=== PATIENT | male | born 1935 | race Caucasian/White ===

== ENCOUNTER 2016-11-18 08:19 | Inpatient (IN) | payer MEDICARE, MEDICAID ==
--- NOTE | 2016-11-18 08:27 | ED PDOC ---
Arrival/HPI - General Chief Complaint: Abdominal Pain Time Seen by Provider: 11/18/16 08:21 Historian: Patient - History of Present Illness Narrative History of Present Illness (Text): 11/18/16 08:26 A 81 year old male, whose past medical history includes CAD with stents and hypertension, presents to the emergency department complaining of worsening left lower abdominal discomfort for the past 2 weeks. He notes hematochezia but denies any fever, chills, chest pain, shortness of breath, dyspnea on exertion, constipation, symptoms, testicular pain, testicular swelling or any other complaints at this time. PMD: Dr. Camarillo Time/Duration: > week Symptom Onset: Gradual Symptom Course: Worsening Quality: Other Activities at Onset: Rest Context: Home Past Medical History - Provider Review Nursing Documentation Reviewed: Yes - Infectious Disease Hx of Infectious Diseases: None - Tetanus Immunization Tetanus Immunization: Unknown - Cardiac Hx Hypertension: Yes - Pulmonary Hx Respiratory Disorders: No - Neurological Hx Neurological Disorder: No - HEENT Hx HEENT Disorder: No Hx Cataracts: Yes (b/l sx) - Renal Hx Kidney Stones: No - Endocrine/Metabolic Hx Endocrine Disorders: No - Hematological/Oncological Hx Blood Transfusions: No - Integumentary Hx Dermatological Disorder: No - Musculoskeletal/Rheumatological Hx Falls: No - Gastrointestinal Hx Gastrointestinal Disorders: No - Genitourinary/Gynecological Hx Genitourinary Disorders: No - Psychiatric Hx Substance Use: No - Surgical History Hx Coronary Stent: Yes (x2) Hx Orthopedic Surgery: Yes (pt denies left hip sx) - Anesthesia Hx Anesthesia Reactions: No Hx Malignant Hyperthermia: No - Suicidal Assessment Feels Threatened In Home Enviroment: No Family/Social History - Physician Review Nursing Documentation Reviewed: Yes Family/Social History: Unknown Family HX Smoking Status: Never Smoked Hx Alcohol Use: No Hx Substance Use: No Hx Substance Use Treatment: No Allergies/Home Meds Allergies/Adverse Reactions: Allergies No Known Allergies Allergy (Verified 11/18/16 08:47) Home Medications: Home Meds Medication Instructions Recorded Confirmed Aspirin [Aspir 81] 81 mg PO DAILY 11/15/13 11/18/16 Vitamin B Complex & Vitamin C 1 tab PO DAILY 11/15/13 11/18/16 [Strovite] Simvastatin 40 mg PO DAILY 11/28/14 11/18/16 Vit [id number] 50,000 iu PO DAILY 11/28/14 11/18/16 Lisinopril [Zestril] 10 mg PO DAILY 12/18/15 11/18/16 Ranitidine HCl [Acid Pediatric Neuropsychologist] 150 mg PO DAILY 12/18/15 11/18/16 amLODIPine [Norvasc] 5 mg PO DAILY 12/18/15 11/18/16 Meloxicam 7.5 mg PO DAILY 11/18/16 11/18/16 Physical Exam - Physical Exam Narrative Physical Exam (Text): - Review of Systems Constitutional: Normal. absent: Fatigue, Weight Change, Fevers Eyes: Normal ENT: Normal Respiratory: Normal absent: SOB, Cough, Sputum Cardiovascular: Normal absent: Chest pain, Palpitations, Syncope Gastrointestinal: Left lower abdominal pain. Hematochezia. absent: Diarrhea, Nausea, Vomiting Genitourinary: Normal. absent: Dysuria, Frequency, Hematuria Musculoskeletal: Normal. absent: Arthralgias, Back Pain, Neck Pain Skin: Normal Neurological: Normal absent: Focal Weakness Endocrine: Normal Hemo/Lymphatic: Normal Psychiatric: Normal - Physical exam Patient appears age appropriate, speaking full sentences without difficulty - Systems Exam Head: Present: Atraumatic, Normocephalic Pupils: Present: PERRL Extraocular Muscles: Present: EOMI Conjunctiva: Present: Normal Mouth: Present: Moist Mucous Membranes Neck: Present: Normal Range of Motion. No: MIDLINE TENDERNESS, Paraspinal Tenderness Respiratory/Chest: Present: Clear to Auscultation, Good Air Exchange. No: Respiratory Distress, Accessory Muscle Use, Tachypneic Cardiovascular: Present: Regular Rate and Rhythm, Normal S1, S2, Peripheral Pulses Present. No: Murmurs Abdomen: Present: Normal Bowel Sounds. Non reducible left inguinal hernia with erythema and tenderness with palpation. No: Peritoneal Signs, Rebound, Guarding , Distention Rectal: Guaiac positive. Female market editor (Scribe - Dimpal Clayton) present. Back: Present: Normal Inspection. No: Midline Tenderness, Paraspinal Tenderness Upper Extremity: Present: Normal Inspection. No: Cyanosis, Edema Lower Extremity: Present: Normal Inspection. No: Edema Neurological: Present: GCS=15, Speech Normal, cranial nerves II through XII fully intact with no cerebellar abnormality, neuro-sensory fully intact. No focal neurological deficits. Skin: Present: Warm, Dry, Normal Color. No: Rashes Lymphatic: Present: OX3, NI, NC Psychiatric: Present: Alert, Oriented x 3, Normal Insight, Normal Concentration Vital Signs Reviewed: Yes Vital Signs Temp Pulse Resp BP Pulse Ox 11/18/16 12:18 89 19 133/76 96 11/18/16 10:20 78 20 129/87 99 11/18/16 08:37 98.1 F 98 H 20 164/83 H 99 Temperature: Afebrile Blood Pressure: Hypertensive Pulse: Regular Respiratory Rate: Normal Appearance: Positive for: Well-Appearing, Non-Toxic, Comfortable Pain Distress: None Mental Status: Positive for: Alert and Oriented X 3 Medical Decision Making ED Course and Treatment: 11/18/16 08:26 Impression: A 81 year old male with left lower abdominal pain. Physical examination reveals patient has a non reducible inguinal hernia and guaiac positive stool. Differential Diagnosis include but are not limited to: incarcerated hernia vs. strangulated hernia vs. GI bleed Plan: -- EKG -- Abdomen/Pelvis CT -- Chest X-ray -- Labs -- Urinalysis -- Morphine, Protonix and IV Fluids -- Reassess and disposition Prior Visits: Notes and results from previous visits were reviewed. The patient was last discharged from the hospital on 12/20/15 after being worked yp for hematochezia. Progress Notes: 11/18/16 10:16 Chest X-ray: Creator : LEIGHA THOMAS MD IMPRESSION: No active pulmonary disease. 11/18/16 11:00 Abdomen/Pelvis CT: Creator : Cordell Palumbo MD IMPRESSION: Anterior abdominal wall hernia in the left lower quadrant adjacent to the inguinal canal. This contains a segment of the colon but there is no obstruction 11/18/16 12:[address] Ramirez in detail, states to consult Dr. Meier for surgery froy Conde manager surgical, states will evaluate 11/18/16 12:25 pt aware of and agrees with plan states he currently has no pain - Lab Interpretations Lab Results: 11/18/16 08:40 11/18/16 08:40 Lab Results 11/18/16 09:30: Urine Color Yellow, Urine Appearance Clear, Urine pH 6.0, Ur Specific [place] 1.020, Urine Protein Trace H, Urine Glucose (UA) 500 H, Urine Ketones Negative, Urine Blood Trace-intact H, Urine Nitrate Negative, Urine Bilirubin Negative, Urine Urobilinogen 0.2, Ur Leukocyte Esterase Negative, Urine RBC 0 - 2, Urine WBC 0 - 2, Hyaline Casts 2 - 5 11/18/16 08:40: TIBC 283 11/18/16 08:40: Sodium 136, Potassium 4.2, Chloride 98, Carbon Dioxide 26, Anion Gap 16, BUN 26 H, Creatinine 1.1, Est GFR ( Amer) > 60, Est GFR ( Non-Af Amer) > 60, Random Glucose 204 H, Calcium 9.2, Ferritin Pending, Total Bilirubin 0.7, AST 36, ALT 28, Alkaline Phosphatase 57, Lactate Dehydrogenase 411, Total Creatine Kinase 181, Troponin I < 0.01, Total Protein 7.8, Albumin 4.2, Globulin 3.6, Albumin/Globulin Ratio 1.2 11/18/16 08:40: PT 11.2, INR 1.04, APTT 29.2 11/18/16 08:40: WBC 8.8, RBC 3.77, Hgb 12.1 L, Hct 34.7 L, MCV 92.0, MCH 32.1, MCHC 34.9, RDW 14.1, Plt Count 269, MPV 9.7, Gran % 73.9 H, Lymph % (Auto) 11.5 L, [place]cer % (Auto) 12.8 H, Eos % (Auto) 1.6, Baso % (Auto) 0.2, Gran # 6.47, Lymph # 1.0 L, Mercer # 1.1 H, Eos # 0.1, Baso # 0.02 11/18/16 08:40: Blood Type A POSITIVE, Antibody Screen Negative, BBK History Checked Patient has bt I have reviewed the lab results: Yes - RAD Interpretation Radiology Orders: 11/18/16 ABD & PELVIS W/O PO OR IV CONT [CT] Stat 11/18/16 08:41 CHEST ONE VIEW [RAD] Stat - Medication Orders Current Medication Orders: Sodium Chloride (Sodium Chloride 0.9%) 1,000 mls @ 75 mls/hr IV .[id number] Last Admin: 11/18/16 08:50 Dose: 75 mls/hr Discontinued Medications Morphine Sulfate (Morphine) 4 mg IVP STAT STA Stop: 11/18/16 08:42 Last Admin: 11/18/16 08:56 Dose: 4 mg Pantoprazole Sodium (Protonix Inj) 40 mg IVP STAT STA Stop: 11/18/16 08:42 Last Admin: 11/18/16 08:56 Dose: 40 mg - Scribe Statement The provider has reviewed the documentation as recorded by the Roxieibe Hugo Clayton Provider Roxieibe Attestation: All medical record entries made by the Roxieibjessica were at my direction and personally dictated by me. I have reviewed the chart and agree that the record accurately reflects my personal performance of the history, physical exam, medical decision making, and the department course for this patient. I have also personally directed, reviewed, and agree with the discharge instructions and disposition. Disposition/Present on Arrival - Present on Arrival Any Indicators Present on Arrival: No History of DVT/PE: No History of Uncontrolled Diabetes: No Urinary Catheter: No History Surgical Site Infection Following: None - Disposition Have Diagnosis and Disposition been Completed?: Yes Diagnosis: Hernia Disposition: HOSPITALIZED Disposition Time: 12:24 Patient Plan: Admission Patient Problems: Current Active Problems Problem Status Onset Hernia Acute Condition: FAIR Referrals: Hannah Ramirez MD [Staff Provider] - Follow up with primary
[2016-11-18 08:37] VITALS: BMI 19.5
[2016-11-18] MEDS ORDERED: Morphine 4 mg/ml ISec IVP STA (08:41)
[2016-11-18] MEDS ORDERED: Sodium Chloride 0.9% 1,000 ML IV SCH ×2 (08:45→20:15)
[2016-11-18 09:15] LABS: ADD MANUAL DIFF? NO
[2016-11-18 09:19] LABS: BASO # 0.02 K/mm3 (0.0-2.0); BASO % 0.2 % (0.0-3.0); EOS # 0.1 (0.0-0.7); EOS % 1.6 % (1.5-5.0); GRAN # 6.47 (1.4-6.5); GRAN % 73.9 % (50.0-68.0); HEMATOCRIT 34.7 % (42.0-52.0); LYMPH % 11.5 % (22.0-35.0); MEAN CORPUSCULAR HEMOGLOBIN 32.1 pg (25.0-35.0); MEAN CORPUSCULAR HGB CONC 34.9 g/dl (31.0-37.0); MEAN PLATELET VOLUME 9.7 fl (7.0-11.0); MONO # 1.1 (0.1-0.6); MONO % 12.8 % (1.0-6.0); PLATELET COUNT 269 10^3/uL (120.0-450.0); RED CELL DISTRIBUTION WIDTH 14.1 % (11.5-14.5); WHITE BLOOD COUNT 8.8 10^3/ul (4.5-11.0)
[2016-11-18 09:38] LABS: INR 1.04 (0.93-1.08); PARTIAL THROMBOPLASTIN TIME 29.2 Seconds (23.7-30.8)
[2016-11-18 09:39] LABS: ALB/GLOB RATIO 1.2 (1.1-1.8); ALKALINE PHOSPHATASE 57 U/L (38-133); ALT/SGPT 28 U/L (7-56); AST/SGOT 36 U/L (15-59); BILIRUBIN,TOTAL 0.7 mg/dL (0.2-1.3); BLOOD UREA NITROGEN 26 mg/dL (7-21); CALCIUM 9.2 mg/dL (8.4-10.5); CARBON DIOXIDE 26 mmol/L (21-33); CHLORIDE 98 mmol/L (98-107); GFR AFRICAN-AMERICAN > 60; GLUCOSE,RANDOM 204 mg/dL (70-110); POTASSIUM 4.2 mmol/L (3.6-5.0); SODIUM 136 mmol/L (132-148); TOTAL PROTEIN 7.8 g/dL (5.8-8.3)
[2016-11-18 09:50] LABS: URINE BILIRUBIN NEGATIVE (NEGATIVE); URINE BLOOD TRACE-INTACT (NEGATIVE); URINE GLUCOSE (UA) 500 mg/dL (NEGATIVE); URINE KETONE NEGATIVE (NEGATIVE); URINE LEUKOCYTE ESTERASE NEGATIVE Leu/uL (NEGATIVE); URINE PROTEIN TRACE mg/dL (<30 mg/dL); URINE UROBILINOGEN 0.2 E.U./dL (<1 E.U./dL)
[2016-11-18 09:51] LABS: TROPONIN I < 0.01 ng/mL
[2016-11-18 09:57] LABS: URINE APPEARANCE CLEAR (CLEAR); URINE COLOR YELLOW (YELLOW)
[2016-11-18 10:05] LABS: URINE RBC 0 - 2 /hpf (0-2); URINE WBC 0 - 2 /hpf (0-6)
--- NOTE | 2016-11-18 10:16 | RAD ---
PROCEDURE: CHEST RADIOGRAPH, 1 VIEW HISTORY: Cough COMPARISON: 12/18/2015 FINDINGS: LUNGS: The lungs are well inflated and clear. PLEURA: No pneumothorax or pleural fluid seen. CARDIOVASCULAR: Normal. OSSEOUS STRUCTURES: No significant abnormalities. VISUALIZED UPPER ABDOMEN: Normal. OTHER FINDINGS: None. IMPRESSION: No active pulmonary disease.
--- NOTE | 2016-11-18 10:52 | CT ---
PROCEDURE: CT Abdomen and Pelvis without intravenous contrast HISTORY: hernia COMPARISON: None. TECHNIQUE: Without contrast. Contrast Dose: Radiation dose: Total exam DLP = mGy-cm. This CT exam was performed using one or more of the following dose reduction techniques: Automated exposure control, adjustment of the mA and/or kV according to patient size, and/or use of iterative reconstruction technique. FINDINGS: LOWER THORAX: Unremarkable. LIVER: Unremarkable. No gross lesion or ductal dilatation. GALLBLADDER AND BILE DUCTS: Unremarkable. PANCREAS: Unremarkable. No gross lesion or ductal dilatation. SPLEEN: Unremarkable. ADRENALS: Unremarkable. No mass. KIDNEYS AND URETERS: Unremarkable. No hydronephrosis. No solid mass. VASCULATURE: Unremarkable. No aortic aneurysm. BOWEL: Unremarkable. No obstruction. No gross mural thickening. There is an abdominal wall hernia in the left lower quadrant adjacent to the inguinal canal. There is herniation of a segment of the colon at the junction of the descending and sigmoid colon. There is no associated obstruction. Minimal stranding or inflammatory changes are seen in the adjacent fat planes. Finding is best seen on image 71 of series 2. Finding is also well visualized on coronal image 14 and sagittal image 32. There is also severe diverticulosis of the sigmoid colon APPENDIX: Unremarkable. Normal appendix. PERITONEUM: Unremarkable. No free fluid. No free air. LYMPH NODES: Unremarkable. No enlarged lymph nodes. BLADDER: Unremarkable. REPRODUCTIVE: Unremarkable. BONES: No acute fracture. OTHER FINDINGS: None. IMPRESSION: Anterior abdominal wall hernia in the left lower quadrant adjacent to the inguinal canal. This contains a segment of the colon but there is no obstruction
--- NOTE | 2016-11-18 14:01 | CP.PCM.CON ---
History of Present Illness - History of Present Illness History of Present Illness: General Surgery Consult Re: L inguinal hernia HPI: 81M presented to ED c/o worsening L lower abdominal pain x 2 weeks. Pain radiates from back to groin and he also notes pain in the right groin as well. Last BM was normal, no pain on defecation. He notes having small amount of hematochezia several days ago and reports urinary hesitancy likely from fasting. Denies F/C, N/V/D/C, chest pain, SOB, testicular pain, testicular swelling or any other complaints at this time. PMH: CAD, COPD, HTN, HLD, chronic back pain, arthritis, diverticulosis, internal hemorrhoids PSH: L inguinal hernia?, Cardiac stents SH: No tobacco, EtOH, or drug use All: NKDA Meds: See MAR Review of Systems - Review of Systems All systems: reviewed and no additional remarkable complaints except (as per HPI ) Past Patient History - Infectious Disease Hx of Infectious Diseases: None - Tetanus Immunizations Tetanus Immunization: Unknown - Past Social History Smoking Status: Never Smoked - CARDIAC Hx Hypertension: Yes - PULMONARY Hx Respiratory Disorders: No - NEUROLOGICAL Hx Neurological Disorder: No - HEENT Hx HEENT Problems: No Hx Cataracts: Yes (b/l sx) - RENAL Hx Kidney Stones: No - ENDOCRINE/METABOLIC Hx Endocrine Disorders: No - HEMATOLOGICAL/ONCOLOGICAL Hx Blood Transfusions: No - INTEGUMENTARY Hx Dermatological Problems: No - MUSCULOSKELETAL/RHEUMATOLOGICAL Hx Falls: No - GASTROINTESTINAL Hx Gastrointestinal Disorders: No - GENITOURINARY/GYNECOLOGICAL Hx Genitourinary Disorders: No - PSYCHIATRIC Hx Substance Use: No - SURGICAL HISTORY Hx Coronary Stent: Yes (x2) Hx Orthopedic Surgery: Yes (pt denies left hip sx) - ANESTHESIA Hx Anesthesia Reactions: No Hx Malignant Hyperthermia: No Meds Allergies/Adverse Reactions: Allergies Allergy/AdvReac Type Severity Reaction Status Date / Time No Known Allergies Allergy Verified 11/18/16 08:47 - Medications Medications: Current Medications Sodium Chloride (Sodium Chloride 0.9%) 1,000 mls @ 75 mls/hr IV .[id number] [facility] Last Admin: 11/18/16 08:50 Dose: 75 mls/hr Physical Exam - Constitutional Appears: Non-toxic, No Acute Distress - Head Exam Head Exam: ATRAUMATIC, NORMOCEPHALIC - Eye Exam Eye Exam: EOMI. absent: Scleral icterus - ENT Exam ENT Exam: Mucous Membranes Dry Additional comments: trachea midline - Neck Exam Neck exam: Positive for: Full Rom - Respiratory Exam Respiratory Exam: NORMAL BREATHING PATTERN. absent: Respiratory Distress - Cardiovascular Exam Cardiovascular Exam: RRR, +S1, +S2 - GI/Abdominal Exam GI & Abdominal Exam: Soft, Tenderness (in LLQ/L inguinal area) Additional comments: L incarcerated inguinal hernia, TTP, mild redness over inguinal canal TTP over R inguinal canal. - Rectal Exam Rectal Exam: Deferred - Extremities Exam Extremities exam: Positive for: normal capillary refill, pedal pulses present. Negative for: pedal edema - Back Exam Back exam: absent: CVA tenderness (L), CVA tenderness (R) - Neurological Exam Neurological exam: Alert, Oriented x3 - Psychiatric Exam Psychiatric exam: Normal Affect, Normal Mood - Skin Skin Exam: Dry, Warm Results - Vital Signs Recent Vital Signs: Last Vital Signs Temp 98.1 F 11/18/16 08:37 Pulse 89 11/18/16 12:18 Resp 19 11/18/16 12:18 BP 133/76 11/18/16 12:18 Pulse Ox 96 11/18/16 12:18 - Labs Result Diagrams: 11/18/16 08:40 11/18/16 08:40 - Imaging and Cardiology CT scan - abdomen Status: Image reviewed by me, Report reviewed by me Assessment & Plan - Assessment and Plan (Free Text) Assessment: 81M with recurrent incarcerated L inguinal hernia Plan: NPO IVF Analgesia Zofran To OR tonight for L inguinal hernia repair, possible mesh. D/W Dr. Luis Solano PGY3
[2016-11-18] MEDS ORDERED: Morphine 2 mg/ml ISec IVP PRN (14:53)
[2016-11-18] MEDS ORDERED: Morphine 4 mg/ml ISec IVP PRN (14:53)
--- NOTE | 2016-11-18 15:09 | CARD ---
APPROVED REPORT EKG Measurement Heart [id number] <Conclusion> Sinus rhythm with APCs
[2016-11-18] MEDS: Lactated Ringer's 1,000 ML IV SCH (16:03)
[2016-11-18] MEDS ORDERED: Propofol 10 mg/ml Inj (20 ML) ONE (18:28)
[2016-11-18] MEDS ORDERED: Succinylcholine 200 mg/10 ml Inj IV ONE (18:29)
[2016-11-18] MEDS ORDERED: Phenylephrine 10 mg/ml Inj ONE (18:29)
[2016-11-18] MEDS ORDERED: ePHEDrine 50 mg/ml Inj ONE (18:29)
--- NOTE | 2016-11-18 18:53 | CON ---
DATE: 11/18/2016 REASON FOR CONSULTATION: Preop evaluation, risk stratification for inguinal hernia surgery. BRIEF CLINICAL HISTORY: This is a 81-year-old male with past medical history significant for hypertension, arthritis, left hip surgery, history of coronary artery disease status post 2 stents in the remote, many years ago. Denies any chest pain, shortness of breath, any palpitation, who has inguinal hernia, admitted electively for left inguinal hernia surgery. Denies any chest pain, denies shortness of breath, denies any palpitation. PAST MEDICAL HISTORY: Significant for hypertension, arthritis of the left hip. FAMILY HISTORY: Noncontributory. SOCIAL HISTORY: Denies any smoking. Denies any history of alcohol abuse. ALLERGIES: No known drug allergy to any medication. CURRENT MEDICATIONS: The patient is on amlodipine, aspirin, lisinopril, ranitidine, steroid, Plavix, simvastatin, vitamin D which was stopped, Plavix was stopped 4-5 days ago. REVIEW OF SYSTEMS: As per HPI. PHYSICAL EXAMINATION: VITAL SIGNS: Temperature afebrile, heart rate 87, blood pressure 145/87. HEENT: Intact. NECK: Supple. No carotid bruit or thyromegaly. CHEST: Clear to auscultation. HEART: S1, S2 regular. ABDOMEN: Soft. EXTREMITIES: Clubbing and cyanosis negative. BLOOD WORKUP: As follows: WBC 8.2, hemoglobin 12.3, hematocrit 34.7, platelet count 269. Chemistry shows sodium 138, potassium 4.2, chloride 98, carbon dioxide 26, anion gap of 16, BUN 1.1. Troponin 0.0. EKG shows normal sinus. No acute ST-T changes noted. IMPRESSION: Preoperative evaluation and risk stratification for left inguinal hernia surgery, history of coronary artery disease in the past recently. No history of dyspnea on exertion, chest pain on exertion. History of off Plavix for many weeks. Normal electrocardiogram. The patient is mild to moderate risk because of underlying comorbidities, but no absolute contraindication. No evidence of acute myocardial infarction, no evidence of ischemia, no evidence of arrhythmia, no evidence of angina or congestive heart failure. As mentioned , the patient is at moderate risk. RECOMMENDATIONS: Will clear the patient to go with a moderate risk. The patient seen in PACU. Will follow with you. Thank you, Dr. Ramirez, for providing us the opportunity in taking care of this patient. Dakotah Chicas MD cc: [id number] TT: 11/18/2016 18:52:28 Confirmation # [id number] Dictation # [id number] mn ELLY
[2016-11-18] MEDS ORDERED: Esmolol 100 mg/10ml Inj IV ONE (19:44)
[2016-11-18] MEDS ORDERED: HYDROmorphone 0.5 mg/0.5 ml ISec IVP PRN (20:03)
--- NOTE | 2016-11-18 20:11 | PCM.SURG1 ---
Surgeon's Initial Post Op Note - Surgeon's Notes Surgeon: Dr. Smith Merchant Patroller: Dr. Lundberg PGY-2 Type of Anesthesia: General Endo Anesthesia Administered By: Dr. Urias Pre-Operative Diagnosis: Recurrent left incarcerated inguinal hernia Operative Findings: Left groin abscess Post-Operative Diagnosis: Left groin abscess Operation Performed: Drainage of left groin abscess, debridement of infected mesh, placement of iodaform packing Specimen/Specimens Removed: small portion of mesh, 15-20cc purulent material Estimated Blood Loss: EBL {In ML}: 10 Blood Products Given: N/A Drains Used: No Drains Post-Op Condition: Good Date of Surgery/Procedure: 11/18/16 Time of Surgery/Procedure: 20:10
--- NOTE | 2016-11-18 20:51 | CON ---
DATE: 11/18/2016 REFERRING PHYSICIAN: Dr. Ramirez. REASON FOR CONSULT: Clearance for surgery. HISTORY OF PRESENT ILLNESS: This is a 81-year-old gentleman with past medical history significant fo r hypertension, degenerative joint disease, history of hernia repair which was left inguinal 2 years ago, history of coronary artery disease requiring coronary stent in the remote past. Admitted becaus e of incarcerated left inguinal hernia, which is painful, involving the abdominal and inguinal wall w ith erythema. Admits to have snoring at nighttime, daytime sleepy and tired, but no cough, no shortn ess of breath, no chest pain, no nausea, no leg pain or leg swelling. PAST MEDICAL HISTORY: Coronary artery disease, history of coronary stent, hypertension, arthritis, h istory of inguinal hernia repair 2 years ago. FAMILY HISTORY: No significant cardiopulmonary disease reported. ALLERGIES: None known. SOCIAL HISTORY: Nonsmoker, nondrinker. MEDICATIONS: He is on vitamin D 50,000 units daily, Ecotrin 81 mg daily, Lactated Ringer's 90 mL per hour, Lipitor 20 mg daily, morphine 2 mg IV q. 4 hours p.r.n., Norvasc 10 mg daily, Pepcid 20 mg at bedtime, multivitamins daily, Zestril 10 mg daily, Zofran on a p.r.n. basis. REVIEW OF SYSTEMS: Admits to snoring at nighttime, daytime sleepy. No chest pain, no shortness of b reath. Left inguinal pain from hernia. No dysuria. No leg pain or leg swelling. PHYSICAL EXAMINATION: GENERAL: Lying in the bed, no acute distress. VITAL SIGNS: Temp is 99, heart rate is 87, respiratory rate is 20, blood pressure 160/75, pulse ox 9 6% on room air. HEENT: Small oral cavity. Crowded airway. NECK: Supple, no JVD. LUNGS: Have a fair airflow with few rhonchi. HEART: S1, S2. ABDOMEN: Soft. Left inguinal hernia, incarcerated. Could not be reduced. Upper abdominal wall is er ythematous. EXTREMITIES: There is no edema. NEUROLOGIC: Awake, alert, follows simple commands. LABORATORY DATA: Shows hemoglobin 12.1, hematocrit 34.7, WBC 8.8, platelet is 269. INR 1.04, PTT 29 . Sodium 136, potassium 4.2, chloride , bicarbonate 26, BUN 26, creatinine 1.1, glucose 204, ca lcium , TIBC 283, transferrin is at 234, ferritin 66, AST 36, ALT 28, alkaline phosphatase is 57 . Troponin less than 0.01, albumin 4.2. Urinalysis shows trace intact blood, trace protein, WBCs ar e 0.22. A CAT scan of the abdomen and pelvis done shows anterior abdominal wall hernia in the left l ower quadrant adjacent to the inguinal canal, which contains segment of the colon but no obstruction. Chest x-ray done shows no infiltrate or effusion. IMPRESSION AND PLAN: Left abdominal hernia, hypertension, history of coronary artery disease, histor y of coronary stent, no history of lung disease. Chest x-ray was clear. No shortness of breath. Pu lmonary status is optimized. There may be component of sleep apnea syndrome, needs close cardiopulmo nary monitoring nel- and post-operatively while under sedation. Thank you and I will follow with you . Dakotah Farrar MD cc: [id number] TT: 11/18/2016 20:50:11 Confirmation # [id number] Dictation # [id number] ln
[2016-11-18] MEDS ORDERED: Pneumococcal 23-Valent Vaccine IM ONE (21:07)
[2016-11-18] MEDS: ceFAZolin 1 gm in NS 1 GM/100 ML BAG IVPB SCH (22:17)
[2016-11-19] MEDS: Lactated Ringer's 1,000 ML IV SCH (01:10)
[2016-11-19] MEDS: ceFAZolin 1 gm in NS 1 GM/100 ML BAG IVPB SCH ×3 (05:56→21:02)
--- NOTE | 2016-11-19 07:50 | OP ---
PROCEDURE DATE: 11/18/2016 SURGEON: Dr. Smith MEAT SMOKER: Dr. Lundberg ANESTHESIA: General, Dr. Urias. PREOPERATIVE DIAGNOSIS: Incarcerated recurrent left inguinal hernia. POSTOPERATIVE DIAGNOSIS: Left groin abscess. PROCEDURE: Left groin exploration, drainage of left groin abscess and debridement of infected mesh. DESCRIPTION OF OPERATION: With the patient in the supine position under adequate general anesthesia, the patient's left groin and lower abdomen were prepped and draped in the usual sterile manner. The patient had a well-healed left groin incision from a hernia repair performed 6 or 7 years previously and near the lateral edge of the scar and extending toward the anterior superior iliac spine, there was a 4-inch area of swelling. Incision was made over this area and taken down through the skin. Th e skin and subcutaneous tissue was noted to be thickened consistent with scar and as the area was car efully incised, the skin was completely divided and upon passing through the full thickness of skin, there was noted to be a small amount of purulent drainage exiting from the beneath the upper flap of the incision. The skin was then completely incised revealing intact mesh, what appeared to be the la teral tails of an inguinal hernia patch and no evidence of recurrent hernia or bowel, only a small ca vity, which upon probing, extended both deep to the external oblique layer and appeared to extend tow florian the retroperitoneum. A small piece of the mesh was excised and sent both for pathology and for c gunnar and cultures were taken of the pus. However, there did not appear to be any visible connectio n with bowel and the larger portion of the mesh was not completely excised as it was unclear what the etiology of the drainage was. When all the cavity was opened somewhat and no significant persistent drainage was identified, iodoform packing was placed down to the area of the mesh and the 2 ends of the incision were closed with interrupted nylon sutures to just decrease the size of the incision. T he incision was then dressed with a dry sterile dressing. The patient tolerated the procedure well a nd transferred to the recovery room in stable condition. Estimated blood loss for the procedure was 10 mL. Brendan Smith MD cc: [id number] TT: 11/19/2016 07:49:29 en
[2016-11-19] MEDS: Multivitamin With Minerals Tab PO SCH (09:48)
--- NOTE | 2016-11-19 09:57 | CP.PCM.PN ---
Subjective - Date & Time of Evaluation Date of Evaluation: 11/19/16 Time of Evaluation: 06:40 - Subjective Subjective: General Surgery Pt S&E, NAEO. No complaints at this time. Ambulating, tolerating liquids, did not try solids last night. Minimal incisional pain controlled by meds Objective - Vital Signs/Intake and Output Vital Signs (last 24 hours): Temp Pulse Resp BP Pulse Ox 99.3 F 83 20 120/61 95 11/19/16 08:17 11/19/16 08:17 11/19/16 08:17 11/19/16 09:48 11/19/16 08:17 Intake and Output: 11/19/16 11/19/16 06:59 18:59 Intake Total 0 1000 Output Total 100 300 Balance -100 700 - Medications Medications: Current Medications Amlodipine Besylate (Norvasc) 10 mg PO DAILY [facility] Last Admin: 11/19/16 09:48 Dose: 10 mg Aspirin (Ecotrin) 81 mg PO DAILY [facility] Last Admin: 11/19/16 09:48 Dose: 81 mg Atorvastatin Calcium (Lipitor) 20 mg PO DIN [facility] Last Admin: 11/18/16 17:08 Dose: Not Given Ergocalciferol (Drisdol 50,000 Intl Units Cap) 1 cap PO Fr@1000 [facility] Famotidine (Pepcid) 20 mg PO HS [facility] Last Admin: 11/18/16 22:18 Dose: 20 mg Lactated Ringer's (Lactated Ringer's) 1,000 mls @ 90 mls/hr IV .Q11H7M [facility] Last Admin: 11/19/16 01:10 Dose: 90 mls/hr Cefazolin Sodium (Ancef 1gm In Ns) 1 gm in 100 mls @ 100 mls/hr IVPB Q8 [facility] Last Admin: 11/19/16 05:56 Dose: 100 mls/hr Lisinopril (Zestril) 10 mg PO DAILY [facility] Last Admin: 11/19/16 09:48 Dose: 10 mg Morphine Sulfate (Morphine) 2 mg IVP Q4H PRN PRN Reason: Pain, moderate (4-7) Last Admin: 11/18/16 22:17 Dose: 2 mg Morphine Sulfate (Morphine) 4 mg IVP PRN PRN PRN Reason: Pain, severe (8-10) Multivitamins/Minerals (Therapeutic-M Tab) 1 tab PO DAILY [facility] Last Admin: 11/19/16 09:48 Dose: 1 tab Ondansetron HCl (Zofran Inj) 4 mg IVP Q4 PRN PRN Reason: Nausea/Vomiting - Labs Labs: PT 11.2 Seconds (9.9-11.8) 11/18/16 08:40 INR 1.04 (0.93-1.08) 11/18/16 08:40 APTT 29.2 Seconds (23.7-30.8) 11/18/16 08:40 - Constitutional Appears: Non-toxic, No Acute Distress - Head Exam Head Exam: ATRAUMATIC, NORMOCEPHALIC - Eye Exam Eye Exam: EOMI. absent: Scleral icterus - Respiratory Exam Respiratory Exam: NORMAL BREATHING PATTERN. absent: Respiratory Distress - GI/Abdominal Exam GI & Abdominal Exam: Soft. absent: Distended, Firm, Guarding, Rigid, Tenderness Additional comments: L groin dressing C/D/I - Neurological Exam Neurological Exam: Alert, Awake - Skin Skin Exam: Dry, Warm Assessment and Plan - Assessment and Plan (Free Text) Assessment: 81M with L groin abscess s/p I&D, POD#1 Plan: F/U cultures Will change packing with Dr. Smith today Will change pain meds to PO ADAT Encouraged ambulation and IS use Will D/W Dr. Luis Solano PGY3
--- NOTE | 2016-11-19 12:37 | PN ---
DATE: 11/19/2016 REASON FOR CONSULTATION AND FOLLOWUP: Preop evaluation and risk stratification for inguinal hernia s urgery, status post abscess drained. Plan was for hernia repair. BRIEF CLINICAL HISTORY: This is a 81-year-old male with past medical history significant for hyperte nsion, arthritis, left hip surgery, history of coronary artery disease status post 2 stents remote/ma ny years ago. Denies any chest pain, shortness of breath, any palpitation. Admitted for inguinal he rnia surgery. Initial preop diagnosis was incarcerated inguinal hernia. Postop diagnosis: Abscess, drained. The patient denies any chest pain, shortness of breath. Family is at the bedside. PHYSICAL EXAMINATION: VITAL SIGNS: Temperature afebrile, heart rate 83, blood pressure 120/60. HEENT: PERRLA. Extraocular muscles intact. NECK: Supple. No carotid bruits or thyromegaly. CHEST: Clear to auscultation. HEART: S1, S2 regular. ABDOMEN: Soft. EXTREMITIES: Clubbing and cyanosis negative. BLOOD WORKUP: As follows: WBC 8.8, hemoglobin 12.____, hematocrit 34.7, platelet count 269. Chemis try shows sodium 130, potassium 4.2, chloride ____, carbon dioxide ____, anion gap of 16, BUN 26, cre atinine 1.1. IMPRESSION: Status post abscess, drained, from the left groin; plan was to do hernia repair but it w as abscessed. History of coronary artery disease, history of a stent in the past, history of hyperte nsion; history of arthritis, left ____. No evidence of acute myocardial infarction noted. Postopera tively, the patient is stable. RECOMMENDATION: Continue current medical treatment. Continue amlodipine. Continue adequate analges ia. Continue aspirin. Continue lisinopril. CV status is stable. Thank you, Dr. Ramirez, for providing the opportunity in taking care of the patient. Dakotah Chicas MD cc:Hannah Ramirez MD [id number] TT: 11/19/2016 12:36:20 Confirmation # [id number] Dictation # [id number] mn
[2016-11-19] MEDS: Oxycodone/Acetaminophen 5/325 mg Tab PO PRN (13:41)
--- NOTE | 2016-11-19 13:44 | CON ---
DATE: 11/19/2016 REQUESTING PHYSICIAN: Dr. Ramirez. REASON FOR CONSULTATION: I have been asked to see this 81-year-old male who comes to the hospital with left lower quadrant abdominal pain. CT scan of the abdomen and pelvis shows a large left-sided abdominal wall hernia extending to the left inguinal area. The patient does have a history of hernia repair with mesh many years ago. I have been asked to see this patient for rectal bleeding. When queried about the rectal bleeding, the patient denied having any rectal bleeding. He did have a colonoscopy back in 12/2015 for rectal bleeding which revealed diverticulosis and internal hemorrhoids. CT scan of the abdomen and pelvis performed in the Emergency Room again showed a large left -sided abdominal wall hernia. The patient underwent surgery for infected hernia mesh on 11/18/2016, yesterday. Again, he currently denies any rectal bleeding. PAST MEDICAL HISTORY: Notable for coronary artery disease status post stent placements, hypertension, degenerative joint disease of the left hip and abdominal hernia repair. He also has known hemorrhoids and diverticulosis. SOCIAL HISTORY: He denies cigarette smoking or alcohol use. FAMILY HISTORY: Noncontributory. REVIEW OF SYSTEMS: A 14-point review of systems is notable for left-sided abdominal pain. PHYSICAL EXAMINATION: GENERAL: Well-developed male lying in bed in no acute distress. VITAL SIGNS: Reveal temperature of 99.3, blood pressure 120/61, heart rate of 83. HEENT: Reveals sclerae to be white, conjunctivae pink. NECK: Supple. CHEST: Reveals lungs to be clear. HEART: Reveals a regular rate and rhythm. ABDOMEN: Soft. He has a dressing over his left inguinal area. EXTREMITIES: Show no edema. Rectal: Small left lateral external hemorrhoids LABORATORY DATA: Reveal white blood cell count 8.8, hemoglobin 12.1. Chemistries reveal BUN 26, creatinine 1.1. IMPRESSION: A 81-year-old male admitted to the hospital with left lower quadrant abdominal pain and found to have an infected hernia mesh. This was excised. The patient denies any recent rectal bleeding. On rectal exam, he is noted to have small left lateral external hemorrhoids. He did have a colonoscopy in 12/2015 which revealed diverticulosis and internal hemorrhoids. RECOMMENDATIONS: 1. Continue postoperative care as per surgery. 2. No further GI workup planned at this time. Daniel Landry MD cc: [id number] TT: 11/19/2016 13:43:28 Confirmation # [id number] Dictation # [id number] dn MTDD
--- NOTE | 2016-11-19 17:01 | PN ---
DATE: 11/19/2016 REFERRING PHYSICIAN: Dr. Ramirez. SUBJECTIVE: He is presently lying in the bed. Family is at bedside. No cough, no shortness of octavio th. Mild abdominal pain. Has some bleed from the incision site seen by the surgical team, and dress ing was reinforced. Has some burning on urination. OBJECTIVE: GENERAL: In no acute distress. VITAL SIGNS: Temp is 99, heart rate is 83, respiratory rate is 18, blood pressure 120/61, pulse ox 9 5% on room air. HEENT: Moist mucous membrane. Small oral cavity. Crowded airway. NECK: Supple. No JVD. LUNGS: Have fair airflow with a few rhonchi. HEART: S1, S2. ABDOMEN: Soft. Left lower quadrant has surgical incision with dressing. EXTREMITIES: There is no edema. NEUROLOGIC: Awake, alert, follows simple command. MEDICATIONS: He is on Ancef 1 g IV q. 8 hours, vitamin D 50,000 units weekly, Ecotrin 81 mg daily, l actated Ringers 90 mg daily, Lipitor 20 mg daily, Norvasc 10 mg daily, Pepcid 20 mg at bedtime, Perco cet 5/325 one tab q. 4 hours p.r.n., multivitamin daily, Zestril 10 mg daily, Zofran on a p.r.n. basi s. LABORATORY DATA: Reviewed. No new lab is available since yesterday. IMPRESSION AND PLAN: Status post herniectomy, history of coronary artery disease, may have a sleep a pnea syndrome. I spoke to family at bedside; all their questions answered. Will start incentive spi rometer, out of bed to chair. May ambulate the patient. Outpatient attended sleep study. Thank you, and will follow with you. Dakotah Farrar MD cc: [id number] TT: 11/19/2016 17:01:09 Confirmation # [id number] Dictation # [id number] mn
--- NOTE | 2016-11-19 20:53 | HP ---
CHIEF COMPLAINT: Abdominal pain. HISTORY OF PRESENT ILLNESS: The patient is a 81-year-old male with history of coronary artery disease with stenting, hypertension, came to the Emergency Room complaining about worsening left lower abdominal discomfort for the past 2 weeks. He noticed hematochezia, but denies any fever, chills, chest pain, shortness of breath, dyspnea on exertion, constipation, symptoms, testicular pain or testicular swelling. PAST MEDICAL HISTORY: Coronary artery disease, hypertension, history of cardiac stenting, worsening left lower abdominal discomfort, history of cataracts bilaterally, also did surgery, left hip replacement. FAMILY HISTORY: Father and mother noncontributory. HABITS: No smoking, no drugs, no ethanol. ALLERGIES: The patient is not allergic to any medications. HOME MEDICATIONS: Aspirin, vitamins, simvastatin, vitamin D, lisinopril, ranitidine, amlodipine, meloxicam. REVIEW OF SYSTEMS: The patient was seen and examined on the bedside. Has pain in the abdomen, left lower quadrant, has dressing there. No fever, no chills. No dyspnea, no dizziness. PHYSICAL EXAMINATION: VITAL SIGNS: Temperature 98, pulse 66, blood pressure 116/51, respiratory rate 20. HEENT: Head normocephalic, atraumatic. Eyes: PERRLA. Extraocular movements intact. Conjunctivae are clear. Nose patent. Mucous membranes moist. NECK: Supple. No carotid bruit, JVD or thyromegaly. CHEST: Bilaterally symmetrical. HEART: S1, S2 positive. LUNGS: Clear to auscultation. ABDOMEN: Soft. Bowel sounds present. No organomegaly. Left lower quadrant is tender. EXTREMITIES: No edema, no cyanosis. NEUROLOGIC: The patient is awake, alert, follows simple commands. MEDICATIONS: Ancef, vitamin D, Ecotrin, lactated Ringers, Lipitor, Norvasc, famotidine, Zestril, Pepcid, multivitamins, Zofran. LABORATORY DATA: White blood cells 8.8, hemoglobin 12.1, hematocrit 34.7, platelets 269. Sodium 136, potassium 4.2, BUN 26, creatinine 1.1, glucose 204, AST 36, ALT 28. ASSESSMENT AND PLAN: The patient is a 81-year-old male with history of coronary artery disease, cardiac stent, had sleep apnea syndrome, hypertension. Dr. Farrar started the patient on incentive spirometry, out of bed to the chair, physical therapy. Seen by concrete block layer, Dr. Daniel Landry, history of degenerative joint disease of left hip, hemorrhoids, diverticulosis, had infected hernia mesh that was excised. The patient denies any rectal bleeding. The patient had a colonoscopy in 2015, which revealed diverticulosis and internal hemorrhoids. Continue postoperative care. No further GI workup as per Dr. Daniel Landry. Seen by Dr. Chicas, rib chopper. Dr. Brendan Smith did the surgery. Has left groin abscess also. Status post incision and drainage, postoperative day one. Follow up cultures. Will change packing today. We will change pain medication to p.o. We will follow up. Hannah Ramirez MD cc: [id number] TT: 11/19/2016 20:53:11 chris SANABRIA
[2016-11-20] MEDS: Lactated Ringer's 1,000 ML IV SCH ×2 (00:45→16:34)
[2016-11-20] MEDS: ceFAZolin 1 gm in NS 1 GM/100 ML BAG IVPB SCH ×3 (06:54→22:08)
[2016-11-20 07:45] LABS: HEMATOCRIT 34.2 % (42.0-52.0); MEAN CELL VOLUME 93.4 fL (80.0-105.0); MEAN CORPUSCULAR HGB CONC 34.2 g/dl (31.0-37.0); MEAN PLATELET VOLUME 9.8 fl (7.0-11.0); RED CELL DISTRIBUTION WIDTH 13.7 % (11.5-14.5); WHITE BLOOD COUNT 8.7 10^3/ul (4.5-11.0)
--- NOTE | 2016-11-20 07:52 | CP.PCM.PN ---
Subjective - Date & Time of Evaluation Date of Evaluation: 11/20/16 Time of Evaluation: 06:40 - Subjective Subjective: Vijay Caro D.O. PGY-1, General Surgery Progress Note: Dr. Luis Churchill. 81 year old male who presented with left inguinal/groin pain, found to have an abscess. Patient was seen and examined at bedside, s/p I&D POD#2, doing well today with no complaints other than some mild residual pain over the area and some drainage. Patient eager to leave the hospital and continue an active lifestyle as he walks "around the park everyday 2-3 times." No N/V/D/fevers/ chills or other issues. Objective - Vital Signs/Intake and Output Vital Signs (last 24 hours): Temp Pulse Resp BP Pulse Ox 98 F 66 20 116/51 L 95 11/19/16 16:00 11/19/16 16:00 11/19/16 16:00 11/19/16 16:00 11/19/16 16:00 Intake and Output: 11/20/16 11/20/16 06:59 18:59 Intake Total 360 0 Output Total 400 500 Balance -40 -500 - Medications Medications: Current Medications Amlodipine Besylate (Norvasc) 10 mg PO DAILY [facility] Last Admin: 11/19/16 09:48 Dose: 10 mg Aspirin (Ecotrin) 81 mg PO DAILY [facility] Last Admin: 11/19/16 09:48 Dose: 81 mg Atorvastatin Calcium (Lipitor) 20 mg PO DIN [facility] Last Admin: 11/19/16 17:32 Dose: 20 mg Ergocalciferol (Drisdol 50,000 Intl Units Cap) 1 cap PO Fr@1000 [facility] Famotidine (Pepcid) 20 mg PO HS [facility] Last Admin: 11/19/16 21:02 Dose: 20 mg Lactated Ringer's (Lactated Ringer's) 1,000 mls @ 90 mls/hr IV .Q11H7M [facility] Last Admin: 11/20/16 00:45 Dose: 90 mls/hr Cefazolin Sodium (Ancef 1gm In Ns) 1 gm in 100 mls @ 100 mls/hr IVPB Q8 [facility] Last Admin: 11/20/16 06:54 Dose: 100 mls/hr Lisinopril (Zestril) 10 mg PO DAILY [facility] Last Admin: 11/19/16 09:48 Dose: 10 mg Multivitamins/Minerals (Therapeutic-M Tab) 1 tab PO DAILY [facility] Last Admin: 11/19/16 09:48 Dose: 1 tab Ondansetron HCl (Zofran Inj) 4 mg IVP Q4 PRN PRN Reason: Nausea/Vomiting Oxycodone/Acetaminophen (Percocet 5/325 Mg Tab) 1 tab PO Q4H PRN PRN Reason: Pain, moderate (4-7) Stop: 11/22/16 10:02 Last Admin: 11/19/16 13:41 Dose: 1 tab - Labs Labs: 11/20/16 06:50 PT 11.2 Seconds (9.9-11.8) 11/18/16 08:40 INR 1.04 (0.93-1.08) 11/18/16 08:40 APTT 29.2 Seconds (23.7-30.8) 11/18/16 08:40 - Constitutional Appears: Non-toxic, No Acute Distress - Head Exam Head Exam: ATRAUMATIC, NORMOCEPHALIC - Respiratory Exam Respiratory Exam: absent: Accessory Muscle Use, Respiratory Distress - GI/Abdominal Exam GI & Abdominal Exam: Soft Additional comments: left groin dressings with mild serosangenous drainage, packing replaced at bedside and new dressings placed - Neurological Exam Neurological Exam: Alert, Awake, Oriented x3 - Skin Skin Exam: Dry, Warm Assessment and Plan - Assessment and Plan (Free Text) Assessment: 81 year old male who presented with left inguinal/groin pain, found to have a left groin abscess s/p I&D POD #2 Plan: Pending cultures, gram stain showed few G+ cocci in chains, few G- rods, and rare G+ cocci in pairs Packing changed at bedside Will have daily packing changes by visiting nurse, social work on case Pain well controlled, cont current regimen Encouraged IS use and frequent ambulation Patient verbalized both understanding and agreement with abovementioned plan Will discuss with attending physician. Thank you for the pleasure of participating in the care of this patient.
[2016-11-20 08:25] LABS: ALB/GLOB RATIO 1.1 (1.1-1.8); ALKALINE PHOSPHATASE 62 U/L (38-133); ALT/SGPT 30 U/L (7-56); AST/SGOT 24 U/L (15-59); BILIRUBIN,TOTAL 0.5 mg/dL (0.2-1.3); BLOOD UREA NITROGEN 17 mg/dL (7-21); CALCIUM 8.7 mg/dL (8.4-10.5); CARBON DIOXIDE 26 mmol/L (21-33); CHLORIDE 99 mmol/L (98-107); CHOLESTEROL 102 mg/dL (130-200); GFR AFRICAN-AMERICAN > 60; GLUCOSE,RANDOM 121 mg/dL (70-110); POTASSIUM 3.8 mmol/L (3.6-5.0); SODIUM 134 mmol/L (132-148); TOTAL PROTEIN 7.1 g/dL (5.8-8.3)
[2016-11-20] MEDS: Multivitamin With Minerals Tab PO SCH (09:10)
--- NOTE | 2016-11-20 15:48 | PN ---
DATE: 11/20/2016 REFERRING PHYSICIAN: Dr. Ramirez. SUBJECTIVE: He is sitting side of the bed, having lunch. Feels okay. Had some bleeding from the in cision site requiring dressing. Denied any cough and no shortness of breath. No nausea, no vomiting . No leg pain or leg swelling. OBJECTIVE: GENERAL: No acute distress. VITAL SIGNS: Temperature is 98, heart rate is 97, respiratory rate is 20, blood pressure 114/59, pul se ox 98% on room air. HEENT: Moist mucous membrane. No ulcer or oral thrush noted. NECK: Supple. No JVD. LUNGS: Have fair airflow with a few rhonchi. HEART: S1, S2. ABDOMEN: Soft. Incision site looks okay. EXTREMITIES: There is no edema. NEUROLOGIC: Awake, alert, follows simple commands. MEDICATIONS: He is on Ancef 1 g IV q. 8 hours, vitamin D 50,000 units subQ daily, Ecotrin 81 mg carol y, Lactated Ringer 90 mL per hour, Lipitor 20 mg daily, Norvasc 10 mg daily, Pepcid 20 mg daily, Perc ocet 5/325 one tab q. 4 hours p.r.n., multivitamins daily, Zestril 10 mg daily, Zofran on a p.r.n. ba sis. LABORATORY DATA: Shows hemoglobin 11.7, hematocrit 34.2, WBC 8.7, platelet is 263. Sodium 134, pota ssium 3.8, chloride 99, bicarbonate 26, BUN 17, creatinine 0.9, glucose 121, hemoglobin A1c 5.8, calc ium is 8.7, magnesium 2.0. AST 24, ALT 30, alk phos is 62, albumin is 3.7. TSH 5.08. IMPRESSION AND PLAN: Status post herniectomy, coronary artery disease, may have sleep apnea syndrome . Doing well. Continue incentive spirometer, out of bed to chair, physical therapy. If cleared by surgery, discharge home. Will recommend attended sleep study upon discharge as an outpatient. Thank you, and will follow with you. Dakotah Farrar MD cc: [id number] TT: 11/20/2016 15:47:28 Confirmation # [id number] Dictation # [id number] mn
[2016-11-20] MEDS: Oxycodone/Acetaminophen 5/325 mg Tab PO PRN ×2 (16:34→21:29)
--- NOTE | 2016-11-20 18:42 | PN ---
DATE: 11/20/2016 LOCATION: Room 369, bed 2. REASON FOR CONSULTATION AND FOLLOWUP: Coronary artery disease, history of stent insertion, hernia an d abscess. HISTORY OF PRESENT ILLNESS: This is a 81-year-old male with known case of hypertension, arthritis, l eft hip surgery, coronary artery disease, status post stent insertion many years ago. Denies any erica st pain, shortness of breath or palpitations. The patient was supposed to have hernia surgery but wa s found to have abscess so the abscess was drained. The patient is lying flat in bed without any erica st pain, shortness of breath or palpitations. PHYSICAL EXAMINATION: VITAL SIGNS: Blood pressure 114/59, respirations 20, pulse 97, temperature 98.2. HEAD: Normocephalic. EYES: Pupils normal. Conjunctivae normal. NECK: JVP low. Carotid equal. THORAX: AP diameter normal. LUNGS: Clear. CARDIOVASCULAR: S1, S2. ABDOMEN: No clubbing, no cyanosis. In the inguinal area, the patient has good drainage of the absce ss. LABORATORY DATA: WBC 8.7, hemoglobin 11.7, hematocrit 34.2, platelets 263. Sodium 134, potassium 3. 8, BUN 17, creatinine 0.9. AST and ALT normal. Total protein 7.1, albumin 3.7. TSH 5.08. DIAGNOSES: Status post abscess drainage from the left groin, history of coronary artery disease, his tory of stent insertion in the past, hypertension, arthritis. PLAN: Clinically, the patient's cardiac status is stable. Will continue present therapy and will fo llow with you. Dakotah Valenzuela MD cc: [id number] TT: 11/20/2016 18:41:35 Confirmation # [id number] Dictation # [id number] dn
[2016-11-21] MEDS: ceFAZolin 1 gm in NS 1 GM/100 ML BAG IVPB SCH ×2 (05:16→14:00)
[2016-11-21] MEDS: Lactated Ringer's 1,000 ML IV SCH (05:19)
[2016-11-21] MEDS: Oxycodone/Acetaminophen 5/325 mg Tab PO PRN ×2 (05:42→14:45)
--- NOTE | 2016-11-21 07:23 | PN ---
DATE: 11/20/2016 SUBJECTIVE: The patient was seen and examined on the bedside on 11/20/16, still complaining about pain in the left lower quadrant. The patient had lunch, feels better. Still has some bleeding from incision site, requesting a dressing change. No cough, no shortness of breath, no fever, no chills, no bowel movement since admission. I gave him MiraLax. PHYSICAL EXAMINATION: VITAL SIGNS: Temperature 98, heart rate 97, respirations 20, blood pressure 140 /59, and pulse oximetry 98% on room air. HEENT: Head normocephalic, atraumatic. Eyes: PERRLA. Extraocular muscles intact. Conjunctivae clear. Nose patent. Mucous membranes moist. NECK: Supple. No carotid bruit, JVD or thyromegaly. CHEST: Bilaterally symmetrical. HEART: S1, S2 positive. LUNGS: Clear to auscultation. ABDOMEN: Soft. Bowel sounds present. No organomegaly. EXTREMITIES: No edema, no cyanosis. NEUROLOGIC: The patient is awake, alert, moving all 4 extremities. No focal deficits. MEDICATIONS: Ancef, vitamin D, Ecotrin, lactated Ringers, Lipitor, Norvasc, Pepcid, Percocet, multivitamin, Zestril and Zofran. LABORATORY DATA: Hemoglobin 11.7, hematocrit 34.2, white blood cells 8.7, platelets 263. Sodium 134, potassium 3.8, BUN 7, creatinine 0.9. Hemoglobin A1c is 5.8, AST 24, ALT 30. TSH 5.08. ASSESSMENT AND PLAN: The patient is a 81-year-old male, status post hernia , coronary artery disease, sleep apnea syndrome and had incision and drainage on the left lower quadrant. Continue using incentive spirometer, out of bed, physical therapy. Constipation, started on MiraLax. Gastrointestinal and deep venous thrombosis prophylaxis. Advance diet as tolerated. We will follow up. Hannah Ramirez MD cc: [id number] TT: 11/21/2016 07:23:22 Confirmation # [id number] Dictation # [id number] [facility]
[2016-11-21 08:04] VITALS: BP 137/78; PULSE 75; RESP 18; TEMP 97.8; O2SAT 97
[2016-11-21] MEDS: Multivitamin With Minerals Tab PO SCH (09:39)
--- NOTE | 2016-11-21 12:18 | CP.PCM.PN ---
Subjective - Date & Time of Evaluation Date of Evaluation: 11/21/16 Time of Evaluation: 10:45 - Subjective Subjective: Vijay Caro D.O. PGY-1, General Surgery Progress Note: Dr. Luis Churchill. 81 year old male who presented with left inguinal/groin pain, found to have an abscess. Patient was seen and examined, s/p I&D POD#3, with surgery team. Patient states that he is doing well, was initially found sitting in a chair and is in good spirits. When we mentioned that we would teach someone in his family to change his packing, patient stated that he could "totally do it myself." No N/V/C/D/fevers/chills, or other complaints. The area is still somewhat tender. Objective - Vital Signs/Intake and Output Vital Signs (last 24 hours): Temp Pulse Resp BP Pulse Ox 97.8 F 75 18 137/78 97 11/21/16 08:03 11/21/16 08:03 11/21/16 08:03 11/21/16 09:39 11/21/16 08:03 Intake and Output: 11/21/16 11/21/16 06:59 18:59 Intake Total 600 Output Total 2050 Balance -1450 - Medications Medications: Current Medications Amlodipine Besylate (Norvasc) 10 mg PO DAILY [facility] Last Admin: 11/21/16 09:39 Dose: 10 mg Aspirin (Ecotrin) 81 mg PO DAILY [facility] Last Admin: 11/21/16 09:39 Dose: 81 mg Atorvastatin Calcium (Lipitor) 20 mg PO DIN [facility] Last Admin: 11/20/16 16:34 Dose: 20 mg Docusate Sodium (Colace) 100 mg PO BID [facility] Last Admin: 11/21/16 09:39 Dose: 100 mg Ergocalciferol (Drisdol 50,000 Intl Units Cap) 1 cap PO Fr@1000 [facility] Famotidine (Pepcid) 20 mg PO HS [facility] Last Admin: 11/20/16 21:29 Dose: 20 mg Cefazolin Sodium (Ancef 1gm In Ns) 1 gm in 100 mls @ 100 mls/hr IVPB Q8 [facility] Last Admin: 11/21/16 05:16 Dose: 100 mls/hr Lisinopril (Zestril) 10 mg PO DAILY [facility] Last Admin: 11/21/16 09:39 Dose: 10 mg Multivitamins/Minerals (Therapeutic-M Tab) 1 tab PO DAILY [facility] Last Admin: 11/21/16 09:39 Dose: 1 tab Ondansetron HCl (Zofran Inj) 4 mg IVP Q4 PRN PRN Reason: Nausea/Vomiting Oxycodone/Acetaminophen (Percocet 5/325 Mg Tab) 1 tab PO Q4H PRN PRN Reason: Pain, moderate (4-7) Stop: 11/22/16 10:02 Last Admin: 11/21/16 05:42 Dose: 1 tab - Labs Labs: 11/20/16 06:50 11/20/16 06:50 PT 11.2 Seconds (9.9-11.8) 11/18/16 08:40 INR 1.04 (0.93-1.08) 11/18/16 08:40 APTT 29.2 Seconds (23.7-30.8) 11/18/16 08:40 - Constitutional Appears: well developed, well nourished, pleasant elderly male - Head Exam Head Exam: ATRAUMATIC, NORMOCEPHALIC - Respiratory Exam Respiratory Exam: absent: Accessory Muscle Use, Respiratory Distress - GI/Abdominal Exam GI & Abdominal Exam: Soft Additional comments: left groin dressings in place with mild serosangenous drainage again, less than yesterday, packing replaced at bedside and new dressings placed - Neurological Exam Neurological Exam: Alert, Awake, Oriented x3 - Skin Skin Exam: Dry, Warm Assessment and Plan - Assessment and Plan (Free Text) Assessment: 81 year old male who presented with left inguinal/groin pain, found to have a left groin abscess s/p I&D POD #3 Plan: Wound shows proteus mirabilis, sensitive to cefazolin, cont now day 4 Patient needs GI evaluation and colonoscopy, patient will likely need further surgical intervention for infected mesh/abscess in left groin at later date Packing changed at bedside Patient to be evaluated for TCU Will have daily packing changes by visiting nurse twice a week and has been educated about doing on changes, will continue to educate while in TCU Pain well controlled, cont current regimen Cont to encouraged IS use and frequent ambulation Patient verbalized both understanding and agreement with abovementioned plan Will discuss with attending physician. Thank you for the pleasure of participating in the care of this patient.
--- NOTE | 2016-11-21 15:42 | PN ---
DATE: 11/21/2016 The patient is a 81-year-old male. The patient was seen and examined on the bedside, feeling comfortable, still having pain in the left lower quadrant. Today is POD 3 of incision and drainage of abscess in the left groin. Surgical staff is trying to teach patient change of dressing. No fever, no chills, no headache, no dizziness. Appetite is appropriate. Still does not have bowel movement. No nausea, vomiting, diarrhea. No hematuria, no hematochezia. PHYSICAL EXAMINATION: VITAL SIGNS: Temperature is 97.8, pulse 75, respiratory rate 18, blood pressure 137/78, pulse oximetry 97%. HEENT: Head normocephalic, atraumatic. Eyes: PERRLA. Extraocular muscles intact. Conjunctivae clear. Nose patent. Mucous membranes moist. NECK: Supple. No carotid bruit, no JVD, no thyromegaly. CHEST: Bilaterally symmetrical. HEART: S1, S2 positive. LUNGS: Clear to auscultation. ABDOMEN: Soft. Bowel sounds positive. No organomegaly. Left lower quadrant is naphthalene still operator, has dressing. EXTREMITIES: No edema, no cyanosis. NEUROLOGIC: The patient is awake, alert, moving all 4 extremities. No focal deficits. MEDICATIONS: Norvasc, Ecotrin, Lipitor, Colace, vitamin D, Ancef, Zestril, multivitamins, Zofran, Percocet. LABORATORIES: White blood cell is 8.7, hemoglobin 11.7, hematocrit 34.2, platelets noted . Sodium 134, potassium 3.8, BUN noted creatinine 0.9, glucose 121. ASSESSMENT AND PLAN: The patient is a 81-year-old male with multiple medical problems, hypertension, anemia, hyperglycemia, came with left groin pain, came to know patient has abscess, status post incision and drainage, postoperative day #3. Wound shows Proteus mirabilis sensitive to cefazolin ,day 4 antibiotics. According to surgeon, patient needs a GI evaluation and colonoscopy. Maybe in the future needs further intervention for infected mesh/ abscess in the left groin at later date. Packing was changed at bedside. The patient is getting evaluated by ICU. Still, he lives alone. Still a couple of years ago. Children are in their own apartments. Continue to encourage to transfer to TCU . Gastrointestinal and deep venous thrombosis prophylaxis. Repeat labs. Length of time discussion done with the nurse practitioner, Joana. If [facility] has bed, we will send patient to [facility]. Will follow up. Hannah Ramirez MD cc: [id number] TT: 11/21/2016 15:41:39 Confirmation # [id number] Dictation # [id number] en MTDD
[2016-11-22] MEDS ORDERED: Levothyroxine 25 MCG TAB PO SCH (07:30)
--- NOTE | 2016-11-22 07:48 | PN ---
DATE: 11/21/2016 REASON FOR CONSULTATION AND FOLLOWUP: Coronary artery disease, history of a stent, hernia, history o f a PTCA, admitted with ____ found to be inguinal abscess, status post a drain. A preoperative evalu ation for hernia surgery. BRIEF HISTORY: This is a 81-year-old male with past medical history significant for hypertension, hy perlipidemia, coronary artery disease, status post a stent, admitted for possible hernia reduction, i ncarceration found, inguinal abscess drained. The patient is stable. Denies chest pain, shortness o f breath, any complained of pain at the hernia site. PHYSICAL EXAMINATION as follows: VITAL SIGNS: Temperature afebrile, heart rate ____, blood pressure 137/78. HEENT: PERRLA. Extraocular muscles intact. NECK: Supple, no carotid bruit or thyromegaly. CHEST: Clear to auscultation. HEART: S1, S2, regular. ABDOMEN: Soft. EXTREMITIES: Clubbing and cyanosis negative. LABORATORY DATA: Blood workup as follows: WBC 8.3, hemoglobin 11.____, hematocrit 34.2, platelet co unt 263. Chemistry shows sodium 134, potassium 3.0, chloride 99, carbon dioxide 26, anion gap ____, BUN 17, creatinine 0.9. TSH 5.08. IMPRESSION: Hypothyroidism, coronary artery disease, diabetes, hypertension, hyperlipidemia, status post inguinal ____ and history of coronary artery disease. RECOMMENDATION: We will put low dose of Synthroid. CV status is stable. Sign off, I will be glad t o follow p.r.n. Thank you Dr. Ramirez for providing the opportunity in taking care of this patient. Dakotah Chicas MD cc: [id number] TT: 11/21/2016 22:38:56 Confirmation # [id number] Dictation # [id number] antonio
[2016-11-22] MEDS ORDERED: Ergocalciferol 50,000 Intl Units Cap PO SCH (10:00)
--- NOTE | 2017-01-13 09:09 | DS ---
CHIEF COMPLAINT: Abdominal pain. HISTORY OF PRESENT ILLNESS: The patient is a 81-year-old male with history of coronary artery disease with stenting, hypertension, came to the emergency room complaining about worsening left lower quadrant abdominal pain in the past 2 weeks. He noticed hematochezia, but denies any fevers, chills, chest pain, shortness of breath, dyspnea on exertion, constipation, testicular pain. We admitted the patient with CAT scan of abdomen and pelvis and chest x-ray. Requires consult with cardiology Dr. Chicas and surgery Dr. Brendan Smith, GI with Dr. Daniel Landry. The patient improved, discharged. PAST MEDICAL HISTORY: Coronary artery disease, hypertension, history of cardiac stenting, worsening left lower quadrant abdominal pain, history of cataract surgery, left hip replacement. FAMILY HISTORY: Father and mother, noncontributory. HABITS: No smoking. No drug, no ethanol. ALLERGIES: THE PATIENT IS NOT ALLERGIC TO ANY MEDICATION. HOME MEDICATIONS: Reviewed by me. REVIEW OF SYSTEMS: The patient is seen and examined at the bedside. For more details see my progress notes of 12/11/2016. Hannah Ramirez MD 01/13/20171:57:35
== END 2016-11-21 16:42 | DRG 908 ==
LOC: ED 08:19 → ERH 12:17 → 3RNO 14:17
PROVIDERS: ADMIT Internal Medicine; ATTEND Internal Medicine
PROC: 0WPF0JZ Removal of Synthetic Substitute from Abdominal Wall, Open Approach (ICD-10-PCS; principal; 2016-11-19)
PROC: 0Y960ZX Drainage of Left Inguinal Region, Open Approach, Diagnostic (ICD-10-PCS; 2016-11-19)
DX: T85.79XA Infection and inflammatory reaction due to other internal prosthetic devices, implants and grafts, initial encounter (principal); L02.214 Cutaneous abscess of groin; J44.9 Chronic obstructive pulmonary disease, unspecified; E78.5 Hyperlipidemia, unspecified; I25.10 Atherosclerotic heart disease of native coronary artery without angina pectoris; K57.90 Diverticulosis of intestine, part unspecified, without perforation or abscess without bleeding; I10 Essential (primary) hypertension; M19.90 Unspecified osteoarthritis, unspecified site; B96.4 Proteus (mirabilis) (morganii) as the cause of diseases classified elsewhere; G47.30 Sleep apnea, unspecified; K64.8 Other hemorrhoids; M54.9 Dorsalgia, unspecified; G89.29 Other chronic pain; M16.12 Unilateral primary osteoarthritis, left hip; D64.9 Anemia, unspecified; R73.9 Hyperglycemia, unspecified; K64.4 Residual hemorrhoidal skin tags; Y83.2 Surgical operation with anastomosis, bypass or graft as the cause of abnormal reaction of the patient, or of later complication, without mention of misadventure at the time of the procedure; Z96.642 Presence of left artificial hip joint; Z79.82 Long term (current) use of aspirin; Z95.5 Presence of coronary angioplasty implant and graft

== ENCOUNTER 2016-11-21 16:20 | Inpatient (IN) | payer OTHER, MEDICAID ==
[2016-11-21] MEDS: ceFAZolin 1 gm in NS 1 GM/100 ML BAG IVPB SCH (22:44)
[2016-11-22] MEDS: ceFAZolin 1 gm in NS 1 GM/100 ML BAG IVPB SCH ×3 (05:56→21:40)
[2016-11-22] MEDS: Levothyroxine 25 MCG TAB PO SCH (05:58)
[2016-11-22 06:41] LABS: ADD MANUAL DIFF? NO
[2016-11-22 07:08] LABS: ALB/GLOB RATIO 1.1 (1.1-1.8); ALKALINE PHOSPHATASE 58 U/L (38-133); ALT/SGPT 31 U/L (7-56); AST/SGOT 30 U/L (15-59); BILIRUBIN,TOTAL 0.4 mg/dL (0.2-1.3); BLOOD UREA NITROGEN 15 mg/dL (7-21); CALCIUM 9.1 mg/dL (8.4-10.5); CARBON DIOXIDE 30 mmol/L (21-33); CHLORIDE 97 mmol/L (95-110); GFR AFRICAN-AMERICAN > 60; GLUCOSE,RANDOM 121 mg/dL (70-110); POTASSIUM 4.2 mmol/L (3.6-5.0); SODIUM 133 mmol/L (132-148); TOTAL PROTEIN 7.1 g/dL (5.8-8.3)
[2016-11-22 07:09] LABS: BASO # 0.03 K/mm3 (0.0-2.0); BASO % 0.4 % (0.0-3.0); EOS # 0.8 (0.0-0.7); GRAN # 3.59 (1.4-6.5); GRAN % 52.9 % (50.0-68.0); HEMATOCRIT 33.6 % (42.0-52.0); LYMPH # 1.7 (1.2-3.4); LYMPH % 24.9 % (22.0-35.0); MEAN CELL VOLUME 91.8 fL (80.0-105.0); MEAN CORPUSCULAR HEMOGLOBIN 31.4 pg (25.0-35.0); MEAN CORPUSCULAR HGB CONC 34.2 g/dl (31.0-37.0); MEAN PLATELET VOLUME 9.7 fl (7.0-11.0); MONO # 0.7 (0.1-0.6); MONO % 10.8 % (1.0-6.0); PLATELET COUNT 327 10^3/uL (120.0-450.0); RED CELL DISTRIBUTION WIDTH 13.3 % (11.5-14.5); WHITE BLOOD COUNT 6.8 10^3/ul (4.5-11.0)
--- NOTE | 2016-11-22 08:33 | CP.PCM.PN ---
Subjective - Date & Time of Evaluation Date of Evaluation: 11/22/16 Time of Evaluation: 07:20 - Subjective Subjective: Vijay Caro D.O. PGY-1, General Surgery Progress Note: Dr. Luis Churchill. 81 year old male who presented with left inguinal/groin pain, found to have an abscess. Patient was seen and examined, s/p I&D POD#4, with surgery team in the TCU. Patient at this time continues to do very well, was very pleasant upon our arrival and has not had any N/V/D/C/fevers/chills, or otherwise. Patient states that he has been learning about how to do the wound care changes himself while watching us do it and that he would feel comfortable with doing them himself if he was provided with the needed gauze and packing. Patient only has mild residual tenderness over the area. Objective - Medications Medications: Current Medications Amlodipine Besylate (Norvasc) 10 mg PO DAILY [facility] PRN Reason: Protocol Aspirin (Ecotrin) 81 mg PO DAILY [facility] PRN Reason: Protocol Atorvastatin Calcium (Lipitor) 20 mg PO DIN [facility] PRN Reason: Protocol Docusate Sodium (Colace) 100 mg PO BID [facility] PRN Reason: Protocol Ergocalciferol (Drisdol 50,000 Intl Units Cap) 1 cap PO Fr@1000 [facility] PRN Reason: Protocol Famotidine (Pepcid) 20 mg PO HS [facility] PRN Reason: Protocol Last Admin: 11/21/16 22:44 Dose: 20 mg Cefazolin Sodium (Ancef 1gm In Ns) 1 gm in 100 mls @ 100 mls/hr IVPB Q8 [facility] PRN Reason: Protocol Last Admin: 11/22/16 05:56 Dose: 100 mls/hr Levothyroxine Sodium (Synthroid) 25 mcg PO 0600 [facility] Last Admin: 11/22/16 05:58 Dose: 25 mcg Lisinopril (Zestril) 10 mg PO DAILY [facility] PRN Reason: Protocol Multivitamins/Minerals (Therapeutic-M Tab) 1 tab PO DAILY [facility] PRN Reason: Protocol Ondansetron HCl (Zofran Inj) 4 mg IVP Q4 PRN; Protocol PRN Reason: Nausea/Vomiting Oxycodone/Acetaminophen (Percocet 5/325 Mg Tab) 1 tab PO Q4H PRN; Protocol PRN Reason: Pain, moderate (4-7) Stop: 11/24/16 19:59 - Labs Labs: 11/22/16 06:20 11/22/16 06:20 - Constitutional Appears: well developed, well nourished, pleasant elderly male - Head Exam Head Exam: ATRAUMATIC, NORMOCEPHALIC - Respiratory Exam Respiratory Exam: absent: Accessory Muscle Use, Respiratory Distress - GI/Abdominal Exam GI & Abdominal Exam: left groin dressing in place, only some serosangenous drainage noted, packing replaced and new dressings applied - Neurological Exam Neurological Exam: Alert, Awake, Oriented x3, nonfocal - Skin Skin Exam: Dry, Warm Assessment and Plan - Assessment and Plan (Free Text) Assessment: 81 year old male who presented with left inguinal/groin pain, found to have a left groin abscess s/p I&D POD #4 Plan: WCx had proteus mirabilis sensitive to cefazolin, continue now day 5 Discussed with patient that he will need GI evaluation and colonoscopy Likely further surgical intervention for infected mesh/abscess in left groin Saturday 12/02 Depending on involvement of mesh and colon, may need ex-lap with sigmoid resection Packing changed at bedside Educated patient about his current condition and welcomed all questions Pain well controlled, cont current regimen Cont to encouraged IS use and frequent ambulation Patient verbalized both understanding and agreement with abovementioned plan Will discuss with attending physician. Thank you for the pleasure of participating in the care of this patient.
[2016-11-22] MEDS: Ergocalciferol 50,000 Intl Units Cap PO SCH (10:55)
[2016-11-22] MEDS: Multivitamin With Minerals Tab PO SCH (10:55)
[2016-11-22] MEDS: Oxycodone/Acetaminophen 5/325 mg Tab PO PRN (11:38)
--- NOTE | 2016-11-22 20:39 | CON ---
DATE: 11/22/2016 LOCATION: Room 304, bed 1. REASON FOR CONSULTATION: Coronary artery disease, hypertension, hyperlipidemia, status post drainage of inguinal abscess. HISTORY OF PRESENT ILLNESS: The patient is a 81-year-old male known to have coronary artery disease, history of 2 stents in the remote past, hypertension, hyperlipidemia, arthritis, diabetes, who was a dmitted with inguinal hernia and the patient was also found to have inguinal abscess so the patient h ad an incision and drainage of the abscess and now he is in transitional care unit for deconditioning and physical therapy. The patient denies any chest pain, shortness of breath, palpitation. PAST MEDICAL HISTORY: Positive for hypertension, arthritis, hyperlipidemia, diabetes, coronary arter y disease, 2 stents in the remote past. FAMILY HISTORY: Not significant. PERSONAL HISTORY: Denies smoking, denies drinking alcohol. ALLERGIES: Denies any allergies. HOME MEDICATIONS: Include lisinopril, steroid, Plavix, simvastatin, aspirin. REVIEW OF SYSTEMS: All the systems were reviewed; positives mentioned in the history, others were ne gative. PHYSICAL EXAMINATION: VITAL SIGNS: Blood pressure 124/77, respirations 18, pulse 64, patient is afebrile. HEENT: Head is normocephalic. Eyes: Pupils normal. Conjunctivae slightly pale. NECK: JVP low. Carotid equal. THORAX: AP diameter normal. LUNGS: Clear. CARDIOVASCULAR: S1, S2. ABDOMEN: Soft, no organomegaly. Inguinal area the patient has an incision because of drainage of th e abscess on the left inguinal area. EXTREMITIES: No clubbing, no cyanosis. LABORATORY DATA: WBC 6.8, hemoglobin 11.5, hematocrit 33.6, platelet 327. Sodium 133, potassium 4.2 , BUN 10, creatinine 0.9, sugar 121. AST and ALT normal. Total protein and albumin normal. EKG on 11/18 showed sinus rhythm with PACs. Chest x-ray , no active pulmonary disease. DIAGNOSES: Left inguinal abscess, inguinal hernia, status post incision and drainage of the abscess, coronary artery disease, remote history of 2 stents insertion, hypertension, hyperlipidemia, arthrit is, diabetes, deconditioning. PLAN: Continue aspirin 81 mg daily, Lipitor 20 mg daily, amlodipine 10 mg daily, Pepcid 20 mg p.o. d aily, Synthroid 25 mcg p.o. daily, lisinopril 10 mg daily. Continue physical therapy. Will follow w ith you. Dakotah Valenzuela MD cc: [phone] TT: 11/22/2016 20:39:07 Confirmation # [id number] Dictation # [id number] dn
--- NOTE | 2016-11-22 22:21 | CON ---
DATE: 11/22/2016 REFERRING PHYSICIAN: Dr. Ramirez. REASON FOR CONSULT: May have sleep apnea syndrome, status post ____. HISTORY OF PRESENT ILLNESS: This is a 81-year-old gentleman, who was admitted through the Emergency Room to [facility] side of the hospital. Has a history of left inguinal repair, found to have some pain, found to have an abscess, had an I and D done a few days ago. Admitted to have snoring, daytime slee py. No nausea, no vomiting, no diarrhea, no leg pain or leg swelling. PAST MEDICAL HISTORY: Hypertension, hyperlipidemia, vitamin D deficiency, a history of hernia repair , coronary artery disease, history of coronary stent in the past and arthritis. ALLERGIES: None known. SOCIAL HISTORY: Nonsmoker, nondrinker. REVIEW OF SYSTEMS: No headache, no rhinitis. Admits to have snoring. No nausea, no vomiting. Tole rated diet well. Still has some discomfort in the left inguinal area, has a dressing on the incision site. No dysuria. No leg pain or leg swelling. PHYSICAL EXAMINATION: GENERAL: Lying in the bed in no acute distress. VITAL SIGNS: Temp is 98, heart rate is 54, respiratory rate is 20, blood pressure 124/77. HEENT: Small oral cavity. Crowded airway. NECK: Supple, no JVD. LUNGS: Have a fair airflow with few rhonchi. HEART: S1, S2. ABDOMEN: Positive bowel sounds, left inguinal area has a dressing on the incision site. EXTREMITIES: There is no edema. NEUROLOGIC: Awake, alert, follows simple commands. LABORATORY DATA: Shows hemoglobin 11.5, hematocrit 33.6, WBC 6.8, platelet is 327. INR 1.04, PTT 29 . Sodium 133, potassium 4.2, chloride 97, bicarbonate 30, BUN 15, creatinine 0.9, glucose 121, calci um is 9.1. AST is 30, ALT 31, alkaline phosphatase is 58, albumin is 3.7. TSH 5.08. Cholesterol is 102. Urinalysis shows blood trace and protein trace, glucose is 500. Has a Proteus mirabilis in th e wound. IMPRESSION AND PLAN: Status post incision and drainage of the left groin abscess, history of hernia repair, coronary artery disease, history of coronary stent, hypertension, may have a sleep apnea synd swati. Continue antibiotics. Continue gastric prophylaxis, deep venous thrombosis prophylaxis. We r ecommend sleep study as outpatient. Avoid sedative. Follow up labs in the morning. Thank you and w ill follow with you. Dakotah Farrar MD cc: [phone] TT: 11/22/2016 22:20:39 Confirmation # [id number] Dictation # [id number] jn
[2016-11-23] MEDS: ceFAZolin 1 gm in NS 1 GM/100 ML BAG IVPB SCH ×3 (05:54→21:11)
[2016-11-23] MEDS: Levothyroxine 25 MCG TAB PO SCH (05:55)
[2016-11-23 06:52] LABS: HEMATOCRIT 37.3 % (42.0-52.0); MEAN CELL VOLUME 92.3 fL (80.0-105.0); MEAN CORPUSCULAR HEMOGLOBIN 32.2 pg (25.0-35.0); MEAN CORPUSCULAR HGB CONC 34.9 g/dl (31.0-37.0); MEAN PLATELET VOLUME 9.5 fl (7.0-11.0); RED CELL DISTRIBUTION WIDTH 13.4 % (11.5-14.5); WHITE BLOOD COUNT 8.4 10^3/ul (4.5-11.0)
[2016-11-23 07:10] LABS: ALB/GLOB RATIO 1.1 (1.1-1.8); ALKALINE PHOSPHATASE 66 U/L (38-133); ALT/SGPT 32 U/L (7-56); AST/SGOT 39 U/L (15-59); BILIRUBIN,TOTAL 0.4 mg/dL (0.2-1.3); BLOOD UREA NITROGEN 19 mg/dL (7-21); CALCIUM 9.7 mg/dL (8.4-10.5); CARBON DIOXIDE 28 mmol/L (21-33); CHLORIDE 95 mmol/L (95-110); GFR AFRICAN-AMERICAN > 60; GLUCOSE,RANDOM 149 mg/dL (70-110); POTASSIUM 4.1 mmol/L (3.6-5.0); SODIUM 134 mmol/L (132-148); TOTAL PROTEIN 8.1 g/dL (5.8-8.3)
[2016-11-23] MEDS ORDERED: POLYETHYLENE GLYCOL 3350 17 GM/Dose PACKET PO ONE (08:43)
--- NOTE | 2016-11-23 10:14 | CP.PCM.PN ---
<Tiffanie Queen - Last Filed: 11/23/16 10:11> Subjective - Date & Time of Evaluation Date of Evaluation: 11/23/16 Time of Evaluation: 08:30 - Subjective Subjective: Surgery: Dr. Smith ( Dr. Rodriguez covering) Pt seen and examined. No acute overnight events. States he's feeling well and denies abdominal pain. He does however feel constipated and would like some medication to help with that. Tolerating diet, denies N/V, F/C. Objective - Vital Signs/Intake and Output Vital Signs (last 24 hours): Temp Pulse Resp BP Pulse Ox 54 L 124/77 11/22/16 10:55 11/22/16 10:55 Intake and Output: 11/23/16 11/23/16 06:59 18:59 Intake Total 520 Balance 520 - Medications Medications: Current Medications Amlodipine Besylate (Norvasc) 10 mg PO DAILY [facility] PRN Reason: Protocol Last Admin: 11/22/16 10:55 Dose: 10 mg Aspirin (Ecotrin) 81 mg PO DAILY [facility] PRN Reason: Protocol Last Admin: 11/22/16 10:55 Dose: 81 mg Atorvastatin Calcium (Lipitor) 20 mg PO DIN [facility] PRN Reason: Protocol Last Admin: 11/22/16 17:56 Dose: 20 mg Docusate Sodium (Colace) 100 mg PO BID [facility] PRN Reason: Protocol Last Admin: 11/22/16 17:56 Dose: 100 mg Ergocalciferol (Drisdol 50,000 Intl Units Cap) 1 cap PO Fr@1000 [facility] PRN Reason: Protocol Last Admin: 11/22/16 10:55 Dose: 1 cap Famotidine (Pepcid) 20 mg PO HS [facility] PRN Reason: Protocol Last Admin: 11/22/16 21:41 Dose: 20 mg Cefazolin Sodium (Ancef 1gm In Ns) 1 gm in 100 mls @ 100 mls/hr IVPB Q8 [facility] PRN Reason: Protocol Last Admin: 11/23/16 05:54 Dose: 100 mls/hr Levothyroxine Sodium (Synthroid) 25 mcg PO 0600 [facility] Last Admin: 11/23/16 05:55 Dose: 25 mcg Lisinopril (Zestril) 10 mg PO DAILY [facility] PRN Reason: Protocol Last Admin: 11/22/16 10:55 Dose: 10 mg Multivitamins/Minerals (Therapeutic-M Tab) 1 tab PO DAILY [facility] PRN Reason: Protocol Last Admin: 11/22/16 10:55 Dose: 1 tab Ondansetron HCl (Zofran Inj) 4 mg IVP Q4 PRN; Protocol PRN Reason: Nausea/Vomiting Oxycodone/Acetaminophen (Percocet 5/325 Mg Tab) 1 tab PO Q4H PRN; Protocol PRN Reason: Pain, moderate (4-7) Stop: 11/24/16 19:59 Last Admin: 11/22/16 11:38 Dose: 1 tab - Labs Labs: 11/23/16 06:37 11/23/16 06:37 - Constitutional Appears: Well, No Acute Distress - Head Exam Head Exam: ATRAUMATIC, NORMOCEPHALIC - Eye Exam Eye Exam: Normal appearance - ENT Exam ENT Exam: Mucous Membranes Moist - Respiratory Exam Respiratory Exam: NORMAL BREATHING PATTERN - Cardiovascular Exam Cardiovascular Exam: RRR - GI/Abdominal Exam GI & Abdominal Exam: Soft. absent: Distended, Guarding, Tenderness Additional comments: LLQ incision with purulent packing; changed - Extremities Exam Extremities Exam: absent: Tenderness - Neurological Exam Neurological Exam: Alert, Awake, Oriented x3 - Skin Skin Exam: Dry, Intact, Warm Assessment and Plan - Assessment and Plan (Free Text) Assessment: 81M s/p I&D of left groin abscess; POD#5 Plan: - Cont daily packing changes - Cont IV ABX - Will need colonoscopy for further eval of bowel involvement in relation to the abscess - d/w Dr. Michael Queen, PGY-2 Surgery <Michael Rodriguez - Last Filed: 11/24/16 21:47> Objective - Vital Signs/Intake and Output Vital Signs (last 24 hours): Temp Pulse Resp BP Pulse Ox 98.6 F 110 H 18 144/70 96 11/24/16 10:00 11/24/16 10:00 11/24/16 10:00 11/24/16 10:00 11/24/16 10:00 - Medications Medications: Current Medications Amlodipine Besylate (Norvasc) 10 mg PO DAILY [facility] PRN Reason: Protocol Last Admin: 11/24/16 11:02 Dose: Not Given Aspirin (Ecotrin) 81 mg PO DAILY [facility] PRN Reason: Protocol Last Admin: 11/24/16 09:37 Dose: 81 mg Atorvastatin Calcium (Lipitor) 20 mg PO DIN [facility] PRN Reason: Protocol Last Admin: 11/24/16 17:32 Dose: 20 mg Docusate Sodium (Colace) 100 mg PO BID [facility] PRN Reason: Protocol Last Admin: 11/24/16 17:32 Dose: 100 mg Ergocalciferol (Drisdol 50,000 Intl Units Cap) 1 cap PO Fr@1000 [facility] PRN Reason: Protocol Last Admin: 11/22/16 10:55 Dose: 1 cap Famotidine (Pepcid) 20 mg PO HS [facility] PRN Reason: Protocol Last Admin: 11/23/16 21:13 Dose: 20 mg Cefazolin Sodium (Ancef 1gm In Ns) 1 gm in 100 mls @ 100 mls/hr IVPB Q8 [facility] PRN Reason: Protocol Last Admin: 11/24/16 14:57 Dose: 100 mls/hr Lactulose (Enulose) 20 gm PO DAILY [facility] PRN Reason: Protocol Last Admin: 11/24/16 09:37 Dose: 20 gm Levothyroxine Sodium (Synthroid) 25 mcg PO 0600 [facility] Last Admin: 11/24/16 05:31 Dose: 25 mcg Lisinopril (Zestril) 10 mg PO DAILY [facility] PRN Reason: Protocol Last Admin: 11/24/16 09:38 Dose: 10 mg Multivitamins/Minerals (Therapeutic-M Tab) 1 tab PO DAILY [facility] PRN Reason: Protocol Last Admin: 11/24/16 09:38 Dose: 1 tab Mupirocin (Bactroban Ointment) 0 gm TOP BID [facility] Last Admin: 11/24/16 17:32 Dose: 1 applic Ondansetron HCl (Zofran Inj) 4 mg IVP Q4 PRN; Protocol PRN Reason: Nausea/Vomiting Vitamin A (Vitamin A & D Oint Ud Foilpak) 1 ea TOP Q6H PRN; Protocol PRN Reason: Dry skin Last Admin: 11/24/16 09:38 Dose: 1 ea - Labs Labs: 11/24/16 06:15 11/24/16 06:15 Assessment and Plan - Assessment and Plan (Free Text) Assessment: Dx: 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
[2016-11-23] MEDS: Multivitamin With Minerals Tab PO SCH (11:11)
--- NOTE | 2016-11-23 15:20 | CP.PCM.PCO ---
Physician Communication Note - Physician Communication Note Physician Communication Note: Increasing incisional pain-DC Packing:c/s S Ab
[2016-11-23] MEDS: Vitamins A & D Oint UD Foilpak TOP PRN (15:50)
--- NOTE | 2016-11-23 18:59 | PN ---
DATE: 11/23/2016 REFERRING PHYSICIAN: Dr. Ramirez. SUBJECTIVE: The patient is lying in the bed, head at 45 degrees. Night was unremarkable. No headac he, no rhinitis, no shortness of breath. No chest pain. Still has left groin and some pain and disc omfort. No leg pain or leg swelling. Also constipated. OBJECTIVE: GENERAL: No acute distress. VITAL SIGNS: Temp is 98, heart rate is 86, respiratory rate is 18, blood pressure 127/66, pulse ox 9 3% on room air. HEENT: Moist mucous membranes. Crowded airway. Mallampati score is 4. NECK: Supple. No JVD. LUNGS: Has a fair airflow with few rhonchi. HEART: S1, S2. ABDOMEN: Soft, nontender, nondistended. Left inguinal area has a dressing, tender to touch. EXTREMITIES: No edema. NEUROLOGIC: Awake, alert, follows simple commands. MEDICATIONS: He is on Ancef 1 g IV q. 8 hours, Bactroban ointment to the affected area, Colace 100 m g twice a day, vitamin D 50,000 units daily, Ecotrin 81 mg daily, lactulose 20 grams tartrate daily, Lipitor 20 mg daily, Norvasc 10 mg daily, Pepcid 20 mg at bedtime, Percocet 5/325 one tab q. 4 hours p.r.n., Synthroid 25 mg daily, multivitamins daily, vitamin A and D to affected area, Zestril 10 mg d aily, Zofran on a p.r.n. basis. LABORATORY DATA: Shows hemoglobin 13.0, hematocrit 37.3, WBC 8.4, platelet count is 390. Sodium 134 , potassium 4.1, chloride 95, bicarbonate 25, BUN 19, creatinine 1.0, glucose 149, calcium 9.7. AST 39, ALT 32, alkaline phosphatase is 66. Albumin 4.3. IMPRESSION AND PLAN: Status post incision and drainage of the left inguinal abscess, history of cameron ia repair in the past, coronary artery disease, history of coronary stent, hypertension, may have sle ep apnea syndrome. Continue antibiotics, bronchodilators, antihypertensive medication. Started on l actulose. Gastric prophylaxis, deep venous thrombosis prophylaxis, out of bed to chair. Physical th erapy. We will follow with you. Dakotah Farrar MD cc: [phone] TT: 11/23/2016 18:58:59 Confirmation # [id number] Dictation # [id number] rn
[2016-11-23] MEDS: Oxycodone/Acetaminophen 5/325 mg Tab PO PRN (21:11)
[2016-11-24] MEDS: Levothyroxine 25 MCG TAB PO SCH (05:31)
[2016-11-24] MEDS: ceFAZolin 1 gm in NS 1 GM/100 ML BAG IVPB SCH ×3 (05:31→22:06)
--- NOTE | 2016-11-24 07:15 | CP.PCM.PN ---
Subjective - Date & Time of Evaluation Date of Evaluation: 11/24/16 Time of Evaluation: 06:54 - Subjective Subjective: Surgery: Dr. Rodriguez Pt seen and examined. No acute overnight events. States he's feeling ok and pain is slightly better. Tolerating diet and admits to having a BM yesterday. Denies N/V, F/C. Objective - Vital Signs/Intake and Output Vital Signs (last 24 hours): Temp Pulse Resp BP Pulse Ox 98.4 F 90 18 165/83 H 96 11/24/16 06:00 11/24/16 06:00 11/24/16 06:00 11/24/16 06:39 11/24/16 06:00 Intake and Output: 11/23/16 11/24/16 18:59 06:59 Output Total 300 Balance -300 - Medications Medications: Current Medications Amlodipine Besylate (Norvasc) 10 mg PO DAILY ZACK PRN Reason: Protocol Last Admin: 11/24/16 06:39 Dose: 10 mg Aspirin (Ecotrin) 81 mg PO DAILY ZACK PRN Reason: Protocol Last Admin: 11/23/16 11:10 Dose: 81 mg Atorvastatin Calcium (Lipitor) 20 mg PO DIN ZACK PRN Reason: Protocol Last Admin: 11/23/16 17:48 Dose: 20 mg Docusate Sodium (Colace) 100 mg PO BID ZACK PRN Reason: Protocol Last Admin: 11/23/16 17:48 Dose: 100 mg Ergocalciferol (Drisdol 50,000 Intl Units Cap) 1 cap PO Fr@1000 ZACK PRN Reason: Protocol Last Admin: 11/22/16 10:55 Dose: 1 cap Famotidine (Pepcid) 20 mg PO HS ZACK PRN Reason: Protocol Last Admin: 11/23/16 21:13 Dose: 20 mg Cefazolin Sodium (Ancef 1gm In Ns) 1 gm in 100 mls @ 100 mls/hr IVPB Q8 ZACK PRN Reason: Protocol Last Admin: 11/24/16 05:31 Dose: 100 mls/hr Lactulose (Enulose) 20 gm PO DAILY ZACK PRN Reason: Protocol Last Admin: 11/23/16 11:13 Dose: 20 gm Levothyroxine Sodium (Synthroid) 25 mcg PO 0600 ZACK Last Admin: 11/24/16 05:31 Dose: 25 mcg Lisinopril (Zestril) 10 mg PO DAILY ZACK PRN Reason: Protocol Last Admin: 11/23/16 11:11 Dose: 10 mg Multivitamins/Minerals (Therapeutic-M Tab) 1 tab PO DAILY ZACK PRN Reason: Protocol Last Admin: 11/23/16 11:11 Dose: 1 tab Mupirocin (Bactroban Ointment) 0 gm TOP BID ZACK Last Admin: 11/23/16 17:48 Dose: 1 applic Ondansetron HCl (Zofran Inj) 4 mg IVP Q4 PRN; Protocol PRN Reason: Nausea/Vomiting Oxycodone/Acetaminophen (Percocet 5/325 Mg Tab) 1 tab PO Q4H PRN; Protocol PRN Reason: Pain, moderate (4-7) Stop: 11/24/16 19:59 Last Admin: 11/23/16 21:11 Dose: 1 tab Vitamin A (Vitamin A & D Oint Ud Foilpak) 1 ea TOP Q6H PRN; Protocol PRN Reason: Dry skin Last Admin: 11/23/16 15:50 Dose: 1 ea - Labs Labs: 11/23/16 06:37 11/23/16 06:37 - Constitutional Appears: Well, No Acute Distress - Eye Exam Eye Exam: Normal appearance - ENT Exam ENT Exam: Mucous Membranes Moist - Respiratory Exam Respiratory Exam: NORMAL BREATHING PATTERN - Cardiovascular Exam Cardiovascular Exam: RRR - GI/Abdominal Exam GI & Abdominal Exam: Soft. absent: Distended, Tenderness - Extremities Exam Extremities Exam: absent: Tenderness Assessment and Plan - Assessment and Plan (Free Text) Assessment: 81M s/p I&D of left groin abscess; POD#6 Plan: - Continue dressing changes BID with wet to dry saline gauze - will f/u with GI plan regarding colonoscopy - may need surgical intervention if no improvement - d/w Dr. Michael Queen, PGY-2 Surgery
[2016-11-24 07:56] LABS: HEMATOCRIT 34.7 % (42.0-52.0); MEAN CELL VOLUME 91.3 fL (80.0-105.0); MEAN CORPUSCULAR HEMOGLOBIN 31.6 pg (25.0-35.0); MEAN CORPUSCULAR HGB CONC 34.6 g/dl (31.0-37.0); MEAN PLATELET VOLUME 9.7 fl (7.0-11.0); RED CELL DISTRIBUTION WIDTH 13.4 % (11.5-14.5); WHITE BLOOD COUNT 15.5 10^3/ul (4.5-11.0)
[2016-11-24 08:14] LABS: BLOOD UREA NITROGEN 27 mg/dL (7-21); CALCIUM 9.5 mg/dL (8.4-10.5); CARBON DIOXIDE 26 mmol/L (21-33); GFR AFRICAN-AMERICAN > 60; GLUCOSE,RANDOM 231 mg/dL (70-110); POTASSIUM 4.2 mmol/L (3.6-5.0); SODIUM 132 mmol/L (132-148)
[2016-11-24 08:28] LABS: CHLORIDE 93 mmol/L (95-110)
[2016-11-24] MEDS: Oxycodone/Acetaminophen 5/325 mg Tab PO PRN (09:07)
[2016-11-24] MEDS: Multivitamin With Minerals Tab PO SCH (09:38)
[2016-11-24] MEDS: Vitamins A & D Oint UD Foilpak TOP PRN (09:38)
--- NOTE | 2016-11-24 18:38 | PN ---
DATE: 11/24/2016 REFERRING PHYSICIAN: Dr. Ramirez. SUBJECTIVE: He is lying in the bed, sleepy, arousable. Still having left lower quadrant pain, const ipation and did have a bowel movement yesterday with a hard stool. No nausea, no vomiting. No leg p ain or leg swelling. OBJECTIVE: GENERAL: In no acute distress. VITAL SIGNS: Temp is 98, heart rate is 110, respiratory rate is 18, blood pressure 144/70, pulse ox 96% on room air. HEENT: Moist mucous membranes. No ulcer or oral thrush noted. NECK: Supple. No JVD. LUNGS: Have a fair airflow with a few rhonchi. HEART: S1 and S2. ABDOMEN: Positive bowel sounds. Left groin has a dressings and tenderness on palpation. EXTREMITIES: There is no edema. NEUROLOGIC: Awake, alert, follows simple commands. MEDICATIONS: He is on Ancef 1 g IV q.8 hours, Bactroban ointment to the affected area twice a day, C olace 100 mg twice a day, vitamin D 50,000 units weekly, Ecotrin 81 mg daily, lactulose 20 grams carol y, Lipitor 20 mg daily, Norvasc 10 mg daily, Pepcid 20 mg daily, Percocet 5/325 one tab q.4 hours p.r .n., Synthroid 25 mcg daily, multivitamins daily, vitamin A and D ointment to affected area, Zestril 10 mg daily, Zofran on a p.r.n. basis. LABORATORY DATA: Shows hemoglobin 12.0, hematocrit 34.7, WBC 15.5, platelet is 382. Sodium 132, pot assium 4.2, chloride 93, bicarbonate 26, BUN 27, creatinine 0.9, glucose , calcium 9.5. IMPRESSION AND PLAN: Status post incision and drainage of the left inguinal abscess, history of cameron ia repair, coronary artery disease, history of coronary stent, hypertension, may have sleep apnea syn drome, constipation. I spoke to the nursing staff and requested that they give him a Fleet's enema. Continue antibiotics. Keep head elevated at 45 degree. Gastric prophylaxis. Deep venous thrombosi s prophylaxis. Sleep apnea precautions. Thank you and will follow with you. Dakotah Farrar MD cc: [id number] TT: 11/24/2016 18:37:32 Confirmation # [id number] Dictation # [id number] dn
[2016-11-25] MEDS: Levothyroxine 25 MCG TAB PO SCH (05:44)
[2016-11-25] MEDS: ceFAZolin 1 gm in NS 1 GM/100 ML BAG IVPB SCH ×3 (05:45→22:20)
[2016-11-25] MEDS: TraMADol/Apap 37.5/325 mg Tab PO PRN ×3 (06:39→21:13)
[2016-11-25] MEDS ORDERED: Barium Sulfate Susp 2.1% w/v, 2.0% w/w 450 mL Bottle PO ONE (06:44)
[2016-11-25 07:04] LABS: HEMATOCRIT 33.6 % (42.0-52.0); MEAN CELL VOLUME 90.8 fL (80.0-105.0); MEAN CORPUSCULAR HEMOGLOBIN 31.6 pg (25.0-35.0); MEAN CORPUSCULAR HGB CONC 34.8 g/dl (31.0-37.0); MEAN PLATELET VOLUME 9.5 fl (7.0-11.0); RED CELL DISTRIBUTION WIDTH 13.6 % (11.5-14.5); WHITE BLOOD COUNT 19.4 10^3/ul (4.5-11.0)
[2016-11-25 07:25] LABS: ALB/GLOB RATIO 1.1 (1.1-1.8); ALKALINE PHOSPHATASE 75 U/L (38-133); ALT/SGPT 31 U/L (7-56); AST/SGOT 37 U/L (15-59); BILIRUBIN,TOTAL 0.5 mg/dL (0.2-1.3); BLOOD UREA NITROGEN 26 mg/dL (7-21); CALCIUM 8.8 mg/dL (8.4-10.5); CARBON DIOXIDE 28 mmol/L (21-33); CHLORIDE 91 mmol/L (98-107); GFR AFRICAN-AMERICAN > 60; GLUCOSE,RANDOM 157 mg/dL (70-110); POTASSIUM 4.6 mmol/L (3.6-5.0); SODIUM 127 mmol/L (132-148); TOTAL PROTEIN 6.5 g/dL (5.8-8.3)
--- NOTE | 2016-11-25 07:54 | PN ---
DATE: 11/24/2016 The patient is a 81-year-old male. The patient was seen and examined on the bedside, was complaining about abdominal pain in left lower quadrant. Did bowel movement yesterday after lactulose. Yesterday, he had problem with urination also and plan was to put Douglas catheter, but finally he did urinate by himself. No nausea, vomiting, diarrhea. The patient is no more getting packing in the wound, just getting plain wound treatment. Still has mesh inside. Waiting for the surgical team for more input. PHYSICAL EXAMINATION: VITAL SIGNS: Temperature 98, heart rate 110, respiratory rate 18, blood pressure 140/70, pulse oximetry 93% on room air. HEENT: Head normocephalic, atraumatic. Eyes: PERRLA. Extraocular muscles intact. Conjunctivae clear. Nose patent. Mucous membranes moist. NECK: Supple. No carotid bruit, no JVD, no thyromegaly. CHEST: Bilaterally symmetrical. HEART: S1, S2 positive. LUNGS: Clear to auscultation. ABDOMEN: Soft. Bowel sounds positive, large. Left groin area has dressing and tenderness on palpation. NEUROLOGIC: The patient is awake, alert, moving all 4 extremities. No focal deficits. EXTREMITIES: No edema, no cyanosis. MEDICATIONS: Ancef, Bactroban, Colace, vitamin D, Ecotrin, lactulose, Lipitor, Norvasc, Pepcid, Percocet, Synthroid, multivitamins, vitamin A and D ointment, Zestril, Zofran. LABORATORIES: Hemoglobin 12.0, hematocrit 34.7, white blood cells noted , platelets 382. Sodium 132, potassium 4.2, BUN 27, creatinine 0.9, calcium 9.5. ASSESSMENT AND PLAN: The patient has history of abscess in the left groin area , status post incision and drainage in the left inguinal area, history of hernia repair in the past and has mesh there, coronary artery disease, history of cardiac stenting, history of hypertension, sleep apnea syndrome, constipation. Length of time discussion done with patient's nurse, Continue antibiotics. Keep head elevated. Gastric prophylaxis, deep venous thrombosis prophylaxis, pain management and waiting for surgical input. Will follow up. Hannah Ramirez MD cc: [id number] TT: 11/25/2016 07:54:07 Confirmation # [id number] Dictation # [id number] en MTDD
--- NOTE | 2016-11-25 08:23 | CP.PCM.PN ---
Subjective - Date & Time of Evaluation Date of Evaluation: 11/25/16 Time of Evaluation: 06:45 - Subjective Subjective: Vijay Caro D.O. PGY-1, General Surgery Progress Note: Dr. uLis Ace (Dr. Michael Ace Covering) 81 year old male who presented with left inguinal/groin pain, found to have left groin abscess, s/p I&D POD#7. Patient was seen and examined with surgery team in the TCU. Patient states that he continues to have some discomfort in his left groin wound but that he has been doing ok with the current pain regimen. No fevers/chills/N/V or other complaints elicited at this time. Patient states that he was able to have a bowel movement yesterday and he feels some relief overall since. No overnight events. Objective - Vital Signs/Intake and Output Vital Signs (last 24 hours): Temp Pulse Resp BP Pulse Ox 98.6 F 110 H 18 144/70 96 11/24/16 10:00 11/24/16 10:00 11/24/16 10:00 11/24/16 10:00 11/24/16 10:00 - Medications Medications: Current Medications Amlodipine Besylate (Norvasc) 10 mg PO DAILY ZACK PRN Reason: Protocol Last Admin: 11/24/16 11:02 Dose: Not Given Aspirin (Ecotrin) 81 mg PO DAILY ZACK PRN Reason: Protocol Last Admin: 11/24/16 09:37 Dose: 81 mg Atorvastatin Calcium (Lipitor) 20 mg PO DIN ZACK PRN Reason: Protocol Last Admin: 11/24/16 17:32 Dose: 20 mg Docusate Sodium (Colace) 200 mg PO BID ZACK PRN Reason: Protocol Ergocalciferol (Drisdol 50,000 Intl Units Cap) 1 cap PO Fr@1000 ZACK PRN Reason: Protocol Last Admin: 11/22/16 10:55 Dose: 1 cap Famotidine (Pepcid) 20 mg PO HS ZACK PRN Reason: Protocol Last Admin: 11/24/16 22:08 Dose: 20 mg Cefazolin Sodium (Ancef 1gm In Ns) 1 gm in 100 mls @ 100 mls/hr IVPB Q8 ZACK PRN Reason: Protocol Last Admin: 11/25/16 05:45 Dose: 100 mls/hr Lactulose (Enulose) 20 gm PO DAILY ZACK PRN Reason: Protocol Last Admin: 11/24/16 09:37 Dose: 20 gm Levothyroxine Sodium (Synthroid) 25 mcg PO 0600 ZACK Last Admin: 11/25/16 05:44 Dose: 25 mcg Lisinopril (Zestril) 10 mg PO DAILY ZACK PRN Reason: Protocol Last Admin: 11/24/16 09:38 Dose: 10 mg Multivitamins/Minerals (Therapeutic-M Tab) 1 tab PO DAILY ZACK PRN Reason: Protocol Last Admin: 11/24/16 09:38 Dose: 1 tab Mupirocin (Bactroban Ointment) 0 gm TOP BID ZACK Last Admin: 11/24/16 17:32 Dose: 1 applic Ondansetron HCl (Zofran Inj) 4 mg IVP Q4 PRN; Protocol PRN Reason: Nausea/Vomiting Tramadol/Acetaminophen (Ultracet 37.5/325 Mg) 1 tab PO Q6H PRN PRN Reason: Pain, Mild (1-3) Last Admin: 11/25/16 06:39 Dose: 1 tab Vitamin A (Vitamin A & D Oint Ud Foilpak) 1 ea TOP Q6H PRN; Protocol PRN Reason: Dry skin Last Admin: 11/24/16 09:38 Dose: 1 ea Zolpidem Tartrate (Ambien) 5 mg PO HS PRN PRN Reason: Insomnia Last Admin: 11/24/16 23:30 Dose: 5 mg - Labs Labs: 11/25/16 06:30 11/25/16 06:30 - Constitutional Appears: Well, No Acute Distress, pleasant - Eye Exam Eye Exam: Normal appearance, EOMI - ENT Exam ENT Exam: Mucous Membranes Moist - Respiratory Exam Respiratory Exam: NORMAL BREATHING PATTERN, no accessory muscle use - Cardiovascular Exam Cardiovascular Exam: RRR - GI/Abdominal Exam GI & Abdominal Exam: Soft, mild tenderness over LLQ, dressing changed at bedside , not distended - Extremities Exam Extremities Exam: absent: Tenderness Assessment and Plan - Assessment and Plan (Free Text) Assessment: 81 year old male who presented with left inguinal/groin pain, found to have left groin abscess, s/p I&D POD#7, with mesh involvement and with possible colonic fistula etiology. Plan: Left inguinal/groin abscess with infected mesh and possible fistula Daily packing changes Cont IV abx Will need GI for colonoscopy at later time Pending CT Abd/Pelvis with oral/IV contrast May need surgical intervention Will discuss with attending physician. Thank you for the pleasure of participating in the care of this patient.
--- NOTE | 2016-11-25 08:37 | HP ---
CHIEF COMPLAINT: Pain in the left lower quadrant, status post procedure. HISTORY OF PRESENT ILLNESS: The patient is a 81-year-old male with past medical history of hypertension, hypercholesterolemia, history of hernia repair , has a mesh, coronary artery disease, history of coronary artery stent, arthritis. Came in [facility] with left lower quadrant pain. Came to know that mesh is infected with abscess. Dr. Smith did the surgery, removed the abscess. Then, incision and drainage done. Surgical team was doing packing and dressing. The patient was still having pain. Dr. Rodriguez removed the packing. Maybe patient needs second surgery to remove the mesh. The patient admitted having snoring and daytime sleepiness. The patient's daughter, was on the bedside. The patient also complaining about constipation. I gave MiraLax. Later on was told that he is not able to pass urine. I gave him a relaxing technique. If it will not work, then Douglas catheter and put a consult with Dr. Munoz. PAST MEDICAL HISTORY: Hypertension, hypercholesterolemia, vitamin D deficiency , history of hernia repair, coronary artery disease, history of coronary stent in the past and arthritis. ALLERGIES: The patient is not allergic with any medications. HABITS: Never smoked, no drugs, no ethanol. REVIEW OF SYSTEMS: The patient seen and examined on the bedside. Daughter, was sitting on the bedside. Length of time discussion done. All questions answered. As per patient, he does not have bowel movement. He has only 1 time with MiraLax. We gave Dulcolax suppositories and history of urinary retention. Discussion done with the nurse to put Douglas catheter or call consult with Dr. Munoz. PHYSICAL EXAMINATION: VITAL SIGNS: Temperature 98.7, pulse 80 , blood pressure medicine 123/ 80 , respiratory rate is 16. HEENT: Head normocephalic, atraumatic. Eyes: PERRLA. Extraocular muscles intact. Conjunctivae clear. Nose patent. Mucous membranes moist. NECK: Supple. No carotid bruit, no JVD, no thyromegaly. CHEST: Bilaterally symmetrical. HEART: S1, S2 positive. LUNGS: Clear to auscultation. ABDOMEN: Soft. Tender in the left lower quadrant, which has dressing. EXTREMITIES: No edema, no cyanosis. NEUROLOGIC: The patient is awake, alert, moving all 4 extremities. No focal deficit. MEDICATIONS: Ancef, bacitracin, Colace, vitamin D, Ecotrin, Lipitor, amlodipine , Pepcid, Percocet, Synthroid, Zestril, Zofran. LABORATORIES: White blood cells 8.4, hemoglobin 13.0, hematocrit 37.2, platelets 399. Sodium 134, potassium 3.4, BUN 19, creatinine 1.0, glucose 149. The patient is a 81-year-old male with anemia, history of coronary artery disease with coronary stents, incision and drainage of the left inguinal ulcer , history of hernia repair in the past, coronary artery disease, history of coronary stent, hypertension, sleep apnea syndrome. Started on antibiotics, bronchodilators, antihypertensive medications. Started on lactulose give Dulcolax suppositories. Gastric prophylaxis, deep vein thrombosis prophylaxis. In the evening urinary retention. They scanned the bladder. It has 220 mL. We tried technique. If it will fail, we will give lactulose and if it fails , Dulcolax suppositories. Discussion done with Dr. Farrar and patient's daughter, was on the bedside. Repeat labs. Will follow up. Hannah Ramirez MD cc: [id number] TT: 11/24/2016 08:29:22 en MTDD
[2016-11-25] MEDS: Multivitamin With Minerals Tab PO SCH (10:14)
--- NOTE | 2016-11-25 12:38 | PN ---
DATE: 11/25/2016 SUBJECTIVE: The patient is lying in bed. He has intermittent left lower quadrant abdominal pain. H e is status post removal of an infected mesh and debridement of the site. He denies any rectal bleed ing. PHYSICAL EXAMINATION: VITAL SIGNS: Reveal temperature of 97.4, blood pressure 139/76, heart rate is 78. ABDOMEN: Soft. He has a dressing over a left lower quadrant incision, which is not draining. LABORATORY DATA: Reveal white blood cell count 19.4, hemoglobin 11.7. Chemistries reveal sodium 127 . IMPRESSION: A 81-year-old male with an infected hernia mesh in the left lower quadrant, status post partial removal of the infected portion, now with elevated white blood cell count. There are no plan s for colonoscopy at this time given the fact that patient had a colonoscopy less than a year ago in 12/2015. This showed diverticulosis and hemorrhoids. He has not had any rectal bleeding recently. RECOMMENDATIONS: Continue current treatment. Etiology of the elevated white blood cell count is unc lear. The patient may need infectious disease evaluation. Daniel Landry MD cc: [id number] TT: 11/25/2016 12:37:50 Confirmation # [id number] Dictation # [id number] en
[2016-11-25] MEDS: Vancomycin 1gm in NS 250ml 1 GM/250 ML BAG IVPB SCH (15:08)
--- NOTE | 2016-11-25 15:35 | CON ---
DATE: 11/25/2016 CHIEF COMPLAINT: Possible retention. HISTORY OF PRESENT ILLNESS: The patient is a 81-year-old man. He underwent a hernia operation. The re was some wound dehiscence and the patient may have to go back to the OR to remove the mesh seconda ry to infection. The patient had trouble urinating at one point and initially it was thought to be d ue to constipation. According to the nurses, the patient is voiding well, in good amounts. There cu rrently is no catheter in and he appears comfortable. PAST MEDICAL HISTORY: Reveals a history of hypertension, high cholesterol, the hernia repair with in fected mass, coronary artery disease with stents placed. ALLERGIES: He has no allergies. SOCIAL HISTORY: He does not smoke or drink. FAMILY HISTORY: Noncontributory. REVIEW OF SYMPTOMS: The patient has a language issue, but apparently no symptoms referable to the he ad, eyes, ears, nose or throat. No cardiac, respiratory symptoms. No musculoskeletal symptoms. PHYSICAL EXAMINATION: VITAL SIGNS: Shows him to be afebrile, pulse 110, blood pressure 144/70, respirations 18. ABDOMEN: No CVA pain. No hepatosplenomegaly, rebound or guarding. No suprapubic fullness. GENITALIA: Unremarkable. The patient will have a bladder scan done to see if he is in retention. If he is not in retention, t here is no need for anything to be done and surgery can proceed for removal of the mesh. He is not o n any benign prostatic hypertrophy meds and may have no need for them if he is voiding well. If ther e is an episode of retention, we will gladly see again. Gucci Munoz MD cc: [id number] TT: 11/25/2016 15:34:45 Confirmation # [id number] Dictation # [id number] en
--- NOTE | 2016-11-25 16:01 | CP.PCM.PCO ---
Physician Communication Note - Physician Communication Note Physician Communication Note: Abscess etiology(Proteus) Desc Colon diverticulitis
--- NOTE | 2016-11-25 19:44 | PN ---
DATE: 11/25/2016 REASON FOR CONSULTATION AND FOLLOWUP: Coronary artery disease, hypertension, hyperlipidemia, status post drainage of inguinal abscess. BRIEF CLINICAL HISTORY: The patient denies any chest pain but complained of pain in the leg on ingui nal side. PHYSICAL EXAMINATION: VITAL SIGNS: Temperature afebrile, heart rate 93, blood pressure 137/74. HEENT: PERRLA. Extraocular muscles intact. NECK: Supple. No carotid bruits. No thyromegaly. CHEST: Clear to auscultation. HEART: S1, S2 regular. ABDOMEN: Soft. EXTREMITIES: Clubbing and cyanosis negative. LABORATORY DATA: Blood workup as follows: WBC 19.4, hemoglobin, , hematocrit 33.6, platelet co unt 384. Chemistry shows sodium 127, potassium 4.6, chloride , carbon dioxide 28, anion gap of 13, BUN 26, creatinine 0.7. IMPRESSION: Status post inguinal hernia abscess drained, history of inguinal hernia repair, history of coronary artery disease, stable; , hyperlipidemia, deconditioned body. RECOMMENDATION: Following surgery the patient complained of pain at the operative site and drainage, needs surgical followup. Continue amlodipine, continue Lipitor, continue aspirin, continue Synthroi d. CV status is stable. No further cardiac workup is planned. Will follow with you Thank you Dr. Ramirez, for providing me the opportunity in taking care of the patient. Dakotah Chicas MD cc: [id number] TT: 11/25/2016 19:43:46 Confirmation # [id number] Dictation # [id number] dn
[2016-11-26] MEDS: Vancomycin 1gm in NS 250ml 1 GM/250 ML BAG IVPB SCH ×2 (00:11→12:25)
[2016-11-26] MEDS: ceFAZolin 1 gm in NS 1 GM/100 ML BAG IVPB SCH (05:56)
[2016-11-26] MEDS: Levothyroxine 25 MCG TAB PO SCH (05:57)
[2016-11-26] MEDS: Piperacillin/Tazobact 3.375 gm 100 ML IVPB SCH ×4 (06:47→23:12)
[2016-11-26 07:04] LABS: HEMATOCRIT 31.6 % (42.0-52.0); MEAN CELL VOLUME 91.3 fL (80.0-105.0); MEAN CORPUSCULAR HEMOGLOBIN 31.8 pg (25.0-35.0); MEAN CORPUSCULAR HGB CONC 34.8 g/dl (31.0-37.0); MEAN PLATELET VOLUME 9.6 fl (7.0-11.0); RED CELL DISTRIBUTION WIDTH 13.5 % (11.5-14.5); WHITE BLOOD COUNT 14.1 10^3/ul (4.5-11.0)
[2016-11-26 07:31] LABS: BLOOD UREA NITROGEN 24 mg/dL (7-21); CALCIUM 8.3 mg/dL (8.4-10.5); CARBON DIOXIDE 29 mmol/L (21-33); CHLORIDE 93 mmol/L (98-107); GFR AFRICAN-AMERICAN > 60; GLUCOSE,RANDOM 109 mg/dL (70-110); POTASSIUM 4.3 mmol/L (3.6-5.0); SODIUM 129 mmol/L (132-148)
--- NOTE | 2016-11-26 08:16 | PN ---
DATE: 11/25/2016 SUBJECTIVE: The patient seen and examined on the bedside. Still complaining about pain in the left lower quadrant, finally had bowel movement. No nausea or vomiting, no fever, no headache, no chest pain, palpitation. PHYSICAL EXAMINATION: VITAL SIGNS: Temperature 98.6, heart rate 93, blood pressure 137/74, respiratory rate 18. HEENT: Head normocephalic, atraumatic. Eyes: PERRLA. Extraocular muscles intact. Conjunctivae clear. Nose patent. Mucous membranes moist. NECK: Supple. No carotid bruit, JVD or thyromegaly. CHEST: Bilaterally symmetrical. HEART: S1, S2 positive. LUNGS: Clear to auscultation. ABDOMEN: Soft. Bowel sounds positive. No organomegaly. EXTREMITIES: No edema, no cyanosis. NEUROLOGIC: The patient is awake, alert, moving all 4 extremities. No focal deficit. PERTINENT LABORATORIES: White blood cells 8, hematocrit 33.6, platelets 384. Sodium 127, potassium 4.6. BUN 26, creatinine 2.7. ASSESSMENT AND PLAN: The patient is a 81-year-old male, status post inguinal hernia, History of , inguinal hernia repair. History of coronary artery disease, hypercholesterolemia, deconditioning. Continue treatment from the surgeon. Actually, Dr. Michael Rodriguez will start . Discussion done with Dr. Rodriguez and Dr. Farrar. Maybe the patient needs surgery to remove the mesh. We will follow up. Hannah Ramirez MD cc: [id number] TT: 11/26/2016 08:15:24 Confirmation # [id number] Dictation # [id number] tn MTDD
--- NOTE | 2016-11-26 08:28 | PN ---
DATE: 11/25/2016 REFERRING PHYSICIAN: Dr. Ramirez. SUBJECTIVE: He has just come back from x-ray. Had a bowel movement. No headache, no rhinitis, no n ausea, no vomiting, no leg pain or leg swelling. OBJECTIVE: GENERAL: No acute distress. VITAL SIGNS: Temperature is 99, heart rate is 93, respiratory rate is 18, blood pressure 137/74, pul se ox 96% on room air. HEENT: Moist mucous membranes. Small oral cavity. Crowded airway. NECK: Supple. No JVD. LUNGS: Have fair airflow with few rhonchi. HEART: S1, S2. ABDOMEN: Soft. Left inguinal area is tender to touch, has a dressing. EXTREMITIES: There is no edema. NEUROLOGIC: Awake, alert, follows simple command. MEDICATIONS: He is on Ambien 5 mg at bedtime p.r.n. and 7 g IV q. 8 hours; Colace 200 mg twice a day , vitamin D 50,000 units weekly; Ecotrin 81 mg daily; lactulose 20 g daily; Lipitor 20 mg daily; Norv asc 10 mg daily; Pepcid 20 mg at bedtime; Synthroid 25 mcg daily; multivitamins daily; Ultracet 37.5/ 325 q. 6 hours p.r.n.; vancomycin 1 g IV q. 12 hours; Zestril 10 mg daily; Zofran on a p.r.n. basis. LABORATORY DATA: Shows hemoglobin 11.7, hematocrit 33.6, WBC 19.4, platelet is 384. Sodium 127, pot assium 4.6, chloride 91, bicarbonate 28, BUN 26, creatinine 0.9, glucose 157, calcium 8.8, AST 37, AL T 34, alk phos is 75. IMPRESSION AND PLAN: Status post incision and drainage of left inguinal abscess, history of hernia r epair in the past with a mesh, coronary artery disease, history of coronary stent, hypertension, may have sleep apnea syndrome, constipation. Case discussed with Dr. Ramirez, also spoke to Dr. Rodriguez from surgery point of view. According to Dr. Rodriguez, his mesh has to be removed to make sure there is no erosion to the colon because of the organism is from the colon. So for now, continue antibiot ics. Also hyponatremia. We will follow electrolytes tomorrow. Gastric prophylaxis. Stool softener . Thank you and we will follow with you. Dakotah Farrar MD cc: [id number] TT: 11/26/2016 08:27:55 Confirmation # [id number] Dictation # [id number] dn
--- NOTE | 2016-11-26 08:51 | CP.PCM.PN ---
Subjective - Date & Time of Evaluation Date of Evaluation: 11/26/16 Time of Evaluation: 06:20 - Subjective Subjective: Vijay Caro D.O. PGY-1, General Surgery Progress Note: Dr. Luis Churchill. 81 year old male who presented with left inguinal/groin pain, found to have left groin abscess, s/p I&D POD#8. Patient was seen and examined with surgery team in the TCU. Patient is comfortable today, still only has complaints of mild pain to the area and some swelling which is slightly reduced from yesterday. Denied any N/V/C/D/fevers/chills or other complaints. No acute overnight events. Objective - Vital Signs/Intake and Output Vital Signs (last 24 hours): Temp Pulse Resp BP Pulse Ox 99 F 93 H 18 137/74 96 11/25/16 16:00 11/25/16 16:00 11/25/16 16:00 11/25/16 16:00 11/25/16 16:00 - Medications Medications: Current Medications Amlodipine Besylate (Norvasc) 10 mg PO DAILY ZACK PRN Reason: Protocol Last Admin: 11/25/16 10:17 Dose: 10 mg Aspirin (Ecotrin) 81 mg PO DAILY ZACK PRN Reason: Protocol Last Admin: 11/25/16 10:15 Dose: 81 mg Atorvastatin Calcium (Lipitor) 20 mg PO DIN ZACK PRN Reason: Protocol Last Admin: 11/25/16 18:15 Dose: 20 mg Docusate Sodium (Colace) 200 mg PO BID ZACK PRN Reason: Protocol Last Admin: 11/25/16 18:14 Dose: Not Given Ergocalciferol (Drisdol 50,000 Intl Units Cap) 1 cap PO Fr@1000 ZACK PRN Reason: Protocol Last Admin: 11/22/16 10:55 Dose: 1 cap Famotidine (Pepcid) 20 mg PO HS ZACK PRN Reason: Protocol Last Admin: 11/25/16 21:13 Dose: 20 mg Vancomycin HCl (Vancomycin 1gm) 1 gm in 250 mls @ 167 mls/hr IVPB Q12H AZCK PRN Reason: Protocol Last Admin: 11/26/16 00:11 Dose: 167 mls/hr Piperacillin Sod/Tazobactam Sod (Zosyn 3.375 In Ns 100ml) 100 mls @ 200 mls/hr IVPB Q6 ZACK PRN Reason: Protocol Stop: 12/03/16 06:33 Last Admin: 11/26/16 06:47 Dose: 200 mls/hr Lactulose (Enulose) 20 gm PO DAILY ZACK PRN Reason: Protocol Last Admin: 11/25/16 10:16 Dose: 20 gm Levothyroxine Sodium (Synthroid) 25 mcg PO 0600 ZACK Last Admin: 11/26/16 05:57 Dose: 25 mcg Lisinopril (Zestril) 10 mg PO DAILY ZACK PRN Reason: Protocol Last Admin: 11/25/16 10:14 Dose: 10 mg Multivitamins/Minerals (Therapeutic-M Tab) 1 tab PO DAILY ZACK PRN Reason: Protocol Last Admin: 11/25/16 10:14 Dose: 1 tab Mupirocin (Bactroban Ointment) 0 gm TOP BID ZACK Last Admin: 11/25/16 18:14 Dose: 1 applic Ondansetron HCl (Zofran Inj) 4 mg IVP Q4 PRN; Protocol PRN Reason: Nausea/Vomiting Tramadol/Acetaminophen (Ultracet 37.5/325 Mg) 1 tab PO Q6H PRN PRN Reason: Pain, Mild (1-3) Last Admin: 11/25/16 21:13 Dose: 1 tab Vitamin A (Vitamin A & D Oint Ud Foilpak) 1 ea TOP Q6H PRN; Protocol PRN Reason: Dry skin Last Admin: 11/24/16 09:38 Dose: 1 ea Zolpidem Tartrate (Ambien) 5 mg PO HS PRN PRN Reason: Insomnia Last Admin: 11/25/16 21:13 Dose: 5 mg - Labs Labs: 11/26/16 06:30 11/26/16 06:30 - Constitutional Appears: Well developed, skinny elderly male, No Acute Distress, pleasant - Eye Exam Eye Exam: Normal appearance, EOMI - ENT Exam ENT Exam: Mucous Membranes Moist - Respiratory Exam Respiratory Exam: NORMAL BREATHING PATTERN, no accessory muscle use - Cardiovascular Exam Cardiovascular Exam: RRR - GI/Abdominal Exam GI & Abdominal Exam: Soft, LLQ/groin dressing changed only some drainage on gauze, +BSx4 - Extremities Exam Extremities Exam: absent: Tenderness Assessment and Plan - Assessment and Plan (Free Text) Assessment: 81 year old male who presented with left inguinal/groin pain, found to have left groin abscess, s/p I&D POD#8, with mesh involvement and with possible colonic fistula etiology. Plan: Cont daily packing changes Cont IV abx, added vanco due to increasing leukocytosis which is now improving Per GI no need for colonoscopy at this time as had one last year CT Abd/Pelvis with oral/IV contrast on 11/25 showed sinus tract from left anterior abd wall subcutaneous tissue down to descending colon Scheduled for OR with Dr. Barrera 12/02 Will discuss with attending physician. Thank you for the pleasure of participating in the care of this patient.
[2016-11-26] MEDS: Multivitamin With Minerals Tab PO SCH (09:29)
--- NOTE | 2016-11-26 12:07 | CP.PCM.CON ---
History of Present Illness - History of Present Illness History of Present Illness: 81 year old male with PMH of CAD, HTN, dyslipidemia, COPD, chronic back pain, arthritis, history of diverticulosis was admitted because of left lower quadrant pain that he had for about 2 weeks. He was then found to have a left inguinal abscess and it was drained. Proteus was initially isolated, but there is still drainage from the area albeit less. CT scan of the abdomen and pelvis was done yesterday which showed possible sinus tract from the skin towards the descending colon. Infectious Diseases consult is requested to further evaluate and manage. Currently the patient states that there is less pain in the left groin, no fever or chills, no nausea or vomiting, no chest pain, no SOB, no headache or dizziness, no diarrhea, no dysuria, no dysphagia. Review of Systems - Review of Systems All systems: reviewed and no additional remarkable complaints except (as per HPI ) Past Patient History - Infectious Disease Hx of Infectious Diseases: None - Tetanus Immunizations Tetanus Immunization: Unknown - Past Social History Smoking Status: Never Smoked - CARDIAC Hx Cardiac Disorders: Yes (CAD, Stents x2) Hx Hypertension: Yes - PULMONARY Hx Respiratory Disorders: No - NEUROLOGICAL Hx Neurological Disorder: No - HEENT Hx Cataracts: Yes (b/l sx) - RENAL Hx Kidney Stones: No - ENDOCRINE/METABOLIC Hx Hypothyroidism: Yes - HEMATOLOGICAL/ONCOLOGICAL Hx Blood Disorders: No - INTEGUMENTARY Hx Dermatological Problems: No - MUSCULOSKELETAL/RHEUMATOLOGICAL Hx Falls: No - GASTROINTESTINAL Hx Gastrointestinal Disorders: Yes (hiatal hernia, gi bleed) - GENITOURINARY/GYNECOLOGICAL Hx Reproductive Disorders: No - PSYCHIATRIC Hx Psychophysiologic Disorder: No Hx Substance Use: No - SURGICAL HISTORY Hx Surgeries: (hernia sx uncertain) Hx Coronary Stent: Yes (x2) Hx Orthopedic Surgery: Yes (pt denies left hip sx) - ANESTHESIA Hx Anesthesia Reactions: No Hx Malignant Hyperthermia: No Meds Allergies/Adverse Reactions: Allergies Allergy/AdvReac Type Severity Reaction Status Date / Time No Known Allergies Allergy Verified 11/22/16 06:36 - Medications Medications: Current Medications Amlodipine Besylate (Norvasc) 10 mg PO DAILY ZACK PRN Reason: Protocol Last Admin: 11/25/16 10:17 Dose: 10 mg Aspirin (Ecotrin) 81 mg PO DAILY ZACK PRN Reason: Protocol Last Admin: 11/25/16 10:15 Dose: 81 mg Atorvastatin Calcium (Lipitor) 20 mg PO DIN ZACK PRN Reason: Protocol Last Admin: 11/25/16 18:15 Dose: 20 mg Docusate Sodium (Colace) 200 mg PO BID ZACK PRN Reason: Protocol Last Admin: 11/25/16 18:14 Dose: Not Given Ergocalciferol (Drisdol 50,000 Intl Units Cap) 1 cap PO Fr@1000 ZACK PRN Reason: Protocol Last Admin: 11/22/16 10:55 Dose: 1 cap Famotidine (Pepcid) 20 mg PO HS ZACK PRN Reason: Protocol Last Admin: 11/25/16 21:13 Dose: 20 mg Vancomycin HCl (Vancomycin 1gm) 1 gm in 250 mls @ 167 mls/hr IVPB Q12H ZACK PRN Reason: Protocol Last Admin: 11/26/16 00:11 Dose: 167 mls/hr Piperacillin Sod/Tazobactam Sod (Zosyn 3.375 In Ns 100ml) 100 mls @ 200 mls/hr IVPB Q6 ZACK PRN Reason: Protocol Stop: 12/03/16 06:33 Lactulose (Enulose) 20 gm PO DAILY ZACK PRN Reason: Protocol Last Admin: 11/25/16 10:16 Dose: 20 gm Levothyroxine Sodium (Synthroid) 25 mcg PO 0600 ZACK Last Admin: 11/26/16 05:57 Dose: 25 mcg Lisinopril (Zestril) 10 mg PO DAILY ZACK PRN Reason: Protocol Last Admin: 11/25/16 10:14 Dose: 10 mg Multivitamins/Minerals (Therapeutic-M Tab) 1 tab PO DAILY ZACK PRN Reason: Protocol Last Admin: 11/25/16 10:14 Dose: 1 tab Mupirocin (Bactroban Ointment) 0 gm TOP BID ZACK Last Admin: 11/25/16 18:14 Dose: 1 applic Ondansetron HCl (Zofran Inj) 4 mg IVP Q4 PRN; Protocol PRN Reason: Nausea/Vomiting Tramadol/Acetaminophen (Ultracet 37.5/325 Mg) 1 tab PO Q6H PRN PRN Reason: Pain, Mild (1-3) Last Admin: 11/25/16 21:13 Dose: 1 tab Vitamin A (Vitamin A & D Oint Ud Foilpak) 1 ea TOP Q6H PRN; Protocol PRN Reason: Dry skin Last Admin: 11/24/16 09:38 Dose: 1 ea Zolpidem Tartrate (Ambien) 5 mg PO HS PRN PRN Reason: Insomnia Last Admin: 11/25/16 21:13 Dose: 5 mg Physical Exam - Constitutional Appears: Non-toxic, No Acute Distress - Head Exam Head Exam: NORMAL INSPECTION - ENT Exam ENT Exam: Mucous Membranes Moist - Neck Exam Neck exam: Negative for: Lymphadenopathy, Meningismus - Respiratory Exam Respiratory Exam: Decreased Breath Sounds - Cardiovascular Exam Cardiovascular Exam: +S1, +S2 - GI/Abdominal Exam GI & Abdominal Exam: Soft. absent: Tenderness Additional comments: left inguinal area with dry dressings in place Results - Vital Signs Recent Vital Signs: Last Vital Signs Temp 99 F 11/25/16 16:00 Pulse 93 H 11/25/16 16:00 Resp 18 11/25/16 16:00 BP 137/74 11/25/16 16:00 Pulse Ox 96 11/25/16 16:00 - Labs Result Diagrams: 11/26/16 06:30 11/26/16 06:30 Labs: Laboratory Results - last 24 hr 11/25/16 11/25/16 06:30 06:30 WBC 19.4 H D RBC 3.70 Hgb 11.7 L Hct 33.6 L MCV 90.8 MCH 31.6 MCHC 34.8 RDW 13.6 Plt Count 384 MPV 9.5 Sodium 127 L Potassium 4.6 Chloride 91 L Carbon Dioxide 28 Anion Gap 13 BUN 26 H Creatinine 0.9 Est GFR ( Amer) > 60 Est GFR (Non-Af Amer) > 60 Random Glucose 157 H Calcium 8.8 Total Bilirubin 0.5 AST 37 ALT 31 Alkaline Phosphatase 75 Total Protein 6.5 Albumin 3.3 Globulin 3.1 Albumin/Globulin Ratio 1.1 Assessment & Plan - Assessment and Plan (Free Text) Plan: Assessment Sepsis probably due to left inguinal abscess with 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
--- NOTE | 2016-11-26 12:45 | CP.PCM.PCO ---
Physician Communication Note - Physician Communication Note Physician Communication Note: Slow improvrmrnt/WBC 14k/Colectomy-Mesh removal
--- NOTE | 2016-11-26 12:52 | PN ---
DATE: 11/26/2016 SUBJECTIVE: The patient is lying in bed. He is comfortable. He still has some mild left lower quad rant abdominal pain. He denies any fevers or chills. There is no drainage from his surgical wound. PHYSICAL EXAMINATION: VITAL SIGNS: Reveal temperature of 99, blood pressure 111/62, heart rate 93. ABDOMEN: Soft. He has a dry dressing over his wound in the left lower quadrant. There is mild tend erness in the left lower quadrant. LABORATORY DATA: Reveal white blood cell count 14.1, hemoglobin 11. CT scan of the abdomen and pelv is from yesterday reveals extensive diverticulosis in the descending and sigmoid colon with mild stra nding of the pericolonic mesentery around the descending colon. IMPRESSION: A 81-year-old male admitted to the hospital with left lower quadrant abdominal pain, fou nd to have an infected hernia mesh growing Proteus with evidence of mild diverticulitis involving the descending colon. RECOMMENDATIONS: 1. Continue IV Zosyn. 2. Continue surgical followup for possible removal of hernia mesh and possible surgery for diverticu litis. Daniel Landry MD cc: [id number] TT: 11/26/2016 12:52:05 Confirmation # [id number] Dictation # [id number] chris
[2016-11-26] MEDS: TraMADol/Apap 37.5/325 mg Tab PO PRN (15:02)
--- NOTE | 2016-11-26 20:33 | PN ---
DATE: 11/26/2016 REFERRING PHYSICIAN: Dr. Ramirez. SUBJECTIVE: He is lying in the bed. Night was unremarkable. No headache, no rhinitis, no nausea, n o diarrhea. Did have a bowel movement. Still has a left inguinal area pain. No leg pain or leg swe lling. OBJECTIVE: GENERAL: No acute distress. VITAL SIGNS: Temp is 99, heart rate is 93, respiratory rate is 18, blood pressure 111/62, pulse ox 9 6% on room air. HEENT: Moist mucous membranes. Small oral cavity. LUNGS: Has a fair airflow with few rhonchi. HEART: S1, S2. ABDOMEN: Positive bowel sounds. Left inguinal area has a dressing, tender to touch. EXTREMITIES: There is no edema. NEUROLOGIC: Awake, alert, follows simple command. MEDICATIONS: He is on Ambien 5 mg at bedtime p.r.n., Bactroban ointment to the affected area twice a day, Colace 200 mg twice a day, vitamin D 50,000 units daily, Ecotrin 81 mg daily, lactulose 20 gram s p.o. daily, Lipitor 20 mg p.o. daily, Norvasc 10 mg daily, Pepcid 20 mg at bedtime, Synthroid 25 mc g daily, multivitamins daily, Ultracet 37.5/325 one tab q. 6 hours p.r.n., vancomycin 1 g IV q. 12 ho urs, vitamin A and D to affected area, lisinopril 10 mg daily, Zofran on a p.r.n. basis, Zosyn 3.375 grams q. 6 hours. LABORATORY DATA: Shows hemoglobin 11.0, hematocrit 31.6, WBC 14.1, platelet is 379. Sodium 129, pot assium 4.3, chloride 93, bicarbonate 29, BUN 24, creatinine 0.9, glucose is 109, calcium is 8.3. Had a CAT scan of the abdomen and pelvis done yesterday; it shows extensive descending colon and diverti culosis with minimal pericolic fat infiltrate. There is sinus tract extending from the left anterior abdominal wall, subcutaneous fat off the serosal margin of the descending colon. tract is not definitively visualized; however, continuous fluid sinus track is not definitely excluded. No evidence of pneumoperitoneum, previously noticed subcutaneous sepsis appeared to have resolved. IMPRESSION AND PLAN: Status post incision and drainage of left inguinal abscess, history of hernia r epair at the same site, coronary artery disease, history of coronary stent, hypertension, may have sl eep apnea syndrome. Surgical note noted. The patient is scheduled to go to OR for mesh removal and debridement of the wound. Pulmonary point of view, doing okay. If sedated, needs close cardiopulmon mayelin monitoring. Sleep apnea precaution. Gastric prophylaxis. DVT prophylaxis. Continue antibiotic s as per infectious diseases. Thank you and we will follow with you. Dakotah Farrar MD cc: [id number] TT: 11/26/2016 20:32:34 Confirmation # [id number] Dictation # [id number] mn
--- NOTE | 2016-11-26 22:17 | PN ---
DATE: 11/26/2016 SUBJECTIVE: The patient was seen and examined on the bedside . Looks comfortable. No nausea, vomiting, diarrhea. No hematuria or hematochezia. No swelling of the leg. No chest pain, no palpitation. Abdomen is rolling machine tender, especially in the left lower quadrant. Pain a little bit better, but still hurting there. No leg pain. No fever, no chills. No nausea, vomiting, or diarrhea. PHYSICAL EXAMINATION: VITAL SIGNS: Temperature 99, heart rate 93, respiratory rate 18, blood pressure 112/52, pulse oximetry 96% on room air. HEENT: Head normocephalic, atraumatic. Eyes PERRLA. Extraocular muscles intact. Conjunctivae clear. Nose patent. Mucous membranes moist. NECK: Supple. No carotid bruit, JVD or thyromegaly. CHEST: Bilaterally symmetrical. HEART: S1, S2 positive. LUNGS: Clear to auscultation. ABDOMEN: Soft. Bowel sounds present. No organomegaly. EXTREMITIES: No edema, no cyanosis. NEUROLOGIC: The patient awake, alert, moving all 4 extremities. No focal deficit. MEDICATIONS: Ambien, Bactroban, Colace, vitamin D, Ecotrin, lactulose, Lipitor , Norvasc, Pepcid, Synthroid, multivitamin, Ultracet, vancomycin, lisinopril, Zofran, Zosyn. LABORATORY DATA: Hemoglobin 11.0, hematocrit 31.6, white blood cells 14.1. Sodium 129, potassium 4.3, BUN 24, creatinine 0.9. ASSESSMENT AND PLAN: The patient is a 81-year-old male with multiple medical problems, status post incision and drainage of the left abscess on the top of the infected mesh, history of hernia repair, coronary artery disease status post coronary artery stents, hypertension, sleep apnea syndrome. Got antibiotics. The patient is scheduled for surgery on Friday for and debridement of the wound and mesh. The patient has history of constipation, but finally moving bowel movement. Sleep apnea precaution. Gastrointestinal and deep venous thrombosis prophylaxis. Antibiotics as per infectious disease. Reviewed Dr. Farrar's notes. Reviewed Dr. Michael Rodriguez communication report. Slow improvement. White blood cells 14 k. Colostomy and mesh removed on 12/02. Reviewed Dr. 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 From the mesh growing Proteus with evidence of mild diverticulitis involving the descending colon. Continue Zosyn. Gastrointestinal and deep venous thrombosis prophylaxis, out of bed, physical therapy. We will follow up. Hannah Ramirez MD cc: [id number] TT: 11/26/2016 22:17:20 Confirmation # [id number] Dictation # [id number] sn MTDD
[2016-11-27] MEDS: Vancomycin 1gm in NS 250ml 1 GM/250 ML BAG IVPB SCH ×3 (00:08→23:46)
[2016-11-27] MEDS: Levothyroxine 25 MCG TAB PO SCH (06:07)
[2016-11-27] MEDS: Piperacillin/Tazobact 3.375 gm 100 ML IVPB SCH ×4 (06:07→23:10)
[2016-11-27 06:33] LABS: PH,URINE 7.5 (4.7-8.0); URINE BILIRUBIN NEGATIVE (NEGATIVE); URINE BLOOD NEGATIVE (NEGATIVE); URINE GLUCOSE (UA) NEGATIVE (NEGATIVE); URINE KETONE NEGATIVE (NEGATIVE); URINE LEUKOCYTE ESTERASE NEGATIVE Leu/uL (NEGATIVE); URINE PROTEIN TRACE mg/dL (<30 mg/dL); URINE UROBILINOGEN 0.2 E.U./dL (<1 E.U./dL)
[2016-11-27 06:36] LABS: URINE APPEARANCE CLEAR (CLEAR); URINE COLOR YELLOW (YELLOW)
[2016-11-27 06:54] LABS: URINE EPITHELIAL CELLS 0 - 2 /hpf (0-5); URINE RBC 0 - 2 /hpf (0-2); URINE WBC 0 - 2 /hpf (0-6)
--- NOTE | 2016-11-27 08:53 | CP.PCM.PN ---
Subjective - Date & Time of Evaluation Date of Evaluation: 11/27/16 Time of Evaluation: 08:30 - Subjective Subjective: Vijay Caro D.O. PGY-1, General Surgery Progress Note: Dr. Michael Churchill. 81 year old male who presented with left inguinal/groin pain, found to have left groin abscess s/p I&D POD#9. Patient was seen and examined at bedside in [facility]. Patient continues to do well today, no complaints elicited. We discussed more in depth his medical issues at this time and the planned surgery this coming Friday. No fevers/chills/N/V/D/C or otherwise. Objective - Vital Signs/Intake and Output Vital Signs (last 24 hours): Temp Pulse Resp BP Pulse Ox 99 F 93 H 18 111/62 96 11/25/16 16:00 11/25/16 16:00 11/25/16 16:00 11/26/16 09:28 11/25/16 16:00 - Medications Medications: Current Medications Amlodipine Besylate (Norvasc) 10 mg PO DAILY ZACK PRN Reason: Protocol Last Admin: 11/26/16 09:28 Dose: 10 mg Aspirin (Ecotrin) 81 mg PO DAILY ZACK PRN Reason: Protocol Last Admin: 11/26/16 09:29 Dose: 81 mg Atorvastatin Calcium (Lipitor) 20 mg PO DIN ZACK PRN Reason: Protocol Last Admin: 11/26/16 17:33 Dose: 20 mg Docusate Sodium (Colace) 200 mg PO BID ZACK PRN Reason: Protocol Last Admin: 11/26/16 17:34 Dose: Not Given Ergocalciferol (Drisdol 50,000 Intl Units Cap) 1 cap PO Fr@1000 ZACK PRN Reason: Protocol Last Admin: 11/22/16 10:55 Dose: 1 cap Famotidine (Pepcid) 20 mg PO HS ZACK PRN Reason: Protocol Last Admin: 11/26/16 23:11 Dose: 20 mg Vancomycin HCl (Vancomycin 1gm) 1 gm in 250 mls @ 167 mls/hr IVPB Q12H ZACK PRN Reason: Protocol Last Admin: 11/27/16 00:08 Dose: 167 mls/hr Piperacillin Sod/Tazobactam Sod (Zosyn 3.375 In Ns 100ml) 100 mls @ 200 mls/hr IVPB Q6 ZACK PRN Reason: Protocol Stop: 12/03/16 06:33 Last Admin: 11/27/16 06:07 Dose: 200 mls/hr Lactulose (Enulose) 20 gm PO DAILY ZACK PRN Reason: Protocol Last Admin: 11/26/16 09:30 Dose: Not Given Levothyroxine Sodium (Synthroid) 25 mcg PO 0600 ZACK Last Admin: 11/27/16 06:07 Dose: 25 mcg Lisinopril (Zestril) 10 mg PO DAILY ZACK PRN Reason: Protocol Last Admin: 11/26/16 09:28 Dose: 10 mg Multivitamins/Minerals (Therapeutic-M Tab) 1 tab PO DAILY ZACK PRN Reason: Protocol Last Admin: 11/26/16 09:29 Dose: 1 tab Mupirocin (Bactroban Ointment) 0 gm TOP BID ZACK Last Admin: 11/26/16 17:33 Dose: 1 applic Ondansetron HCl (Zofran Inj) 4 mg IVP Q4 PRN; Protocol PRN Reason: Nausea/Vomiting Tramadol/Acetaminophen (Ultracet 37.5/325 Mg) 1 tab PO Q6H PRN PRN Reason: Pain, Mild (1-3) Last Admin: 11/26/16 15:02 Dose: 1 tab Vitamin A (Vitamin A & D Oint Ud Foilpak) 1 ea TOP Q6H PRN; Protocol PRN Reason: Dry skin Last Admin: 11/24/16 09:38 Dose: 1 ea Zolpidem Tartrate (Ambien) 5 mg PO HS PRN PRN Reason: Insomnia Last Admin: 11/25/16 21:13 Dose: 5 mg - Labs Labs: 11/26/16 06:30 11/26/16 06:30 - Constitutional Appears: Well developed, skinny elderly male, No Acute Distress, pleasant - Eye Exam Eye Exam: Normal appearance, EOMI - ENT Exam ENT Exam: Mucous Membranes Moist - Respiratory Exam Respiratory Exam: NORMAL BREATHING PATTERN, no accessory muscle use - Cardiovascular Exam Cardiovascular Exam: RRR - GI/Abdominal Exam GI & Abdominal Exam: Soft, LLQ/groin dressing changed only some drainage on gauze, +BSx4 - Extremities Exam Extremities Exam: absent: Tenderness Assessment and Plan - Assessment and Plan (Free Text) Assessment: 81 year old male who presented with left inguinal/groin pain, found to have left groin abscess, s/p I&D POD#9, with mesh involvement and with colonic fistula etiology. Plan: We will cont daily packing changes while in TCU Leukocytosis improving with vanco and now zosyn additions, appreciate ID recs Plan for OR 12/02 for left inguinal mesh removal and colectomy with Dr. Bruce Ace, welcomed and answered patients questions at bedside Will discuss with attending physician. Thank you for the pleasure of participating in the care of this patient.
[2016-11-27] MEDS: Multivitamin With Minerals Tab PO SCH (09:53)
[2016-11-27] MEDS: TraMADol/Apap 37.5/325 mg Tab PO PRN ×2 (09:57→23:18)
--- NOTE | 2016-11-27 10:50 | PN ---
DATE: 11/27/2016 SUBJECTIVE: The patient still complains of some mild left lower quadrant abdominal pain. He denies any nausea, vomiting. PHYSICAL EXAMINATION: VITAL SIGNS: Reveal that he is afebrile, blood pressure of 142/58, heart rate is 73. ABDOMEN: Soft. There is a wound in the left lower quadrant with some serosanguineous purulent drain age. There is no new laboratory data. IMPRESSION: A 81-year-old male with removal of an infected mesh with diverticulitis of the descendin g colon on CAT scan, now with drainage at the surgical wound site. RECOMMENDATIONS: 1. Continue IV antibiotics. 2. The patient will most likely need removal of the entire hernia mesh. Daniel Landry MD cc: [id number] TT: 11/27/2016 10:49:49 Confirmation # [id number] Dictation # [id number] chris
--- NOTE | 2016-11-27 16:16 | PN ---
DATE: 11/27/2016 REFERRING PHYSICIAN: Dr. Ramirez SUBJECTIVE: He is standing in the room, just came out of bathroom. Had a bowel movement. No cough, no sputum production, no nausea, no vomiting. Mild inguinal area discomfort. No dysuria. No leg p ain or leg swelling. OBJECTIVE: GENERAL: No acute distress. VITAL SIGNS: Temperature is 98, heart rate is 70, respiratory rate is 20, blood pressure 120/59, pul se ox 96% on room air. HEENT: Moist mucous membranes. Small oral cavity. Crowded airway. NECK: Supple. No JVD. LUNGS: Has a fair airflow with rhonchi. HEART: S1, S2. ABDOMEN: Soft. ____ has a dressing. Mild tenderness. EXTREMITIES: There is no edema. NEUROLOGIC: Awake, alert, follows simple command. MEDICATIONS: He is on Ambien 5 mg at bedtime p.r.n., Colace 200 mg twice a day, vitamin D3 at 50,000 units weekly, Ecotrin 81 mg daily, lactulose 20 grams daily, Lipitor 20 mg daily, Norvasc 10 mg carol y, Pepcid 20 mg at bedtime, Synthroid 25 mcg daily, multivitamins daily, ____ 37.5/325 one tab q.6 ho urs p.r.n., vancomycin 1 gram IV q.12 hours, vitamin A and D affected area, Zestril 10 mg daily, Zofr an 4 mg q.4 hours p.r.n., Zosyn ____ grams IV q.6 hours. LABORATORY DATA: Reviewed. No new lab is available since yesterday. Microbiology: Blood cultures have been negative. IMPRESSION AND PLAN: Status post incision and drainage of the left inguinal abscess, history of cameron ia repair with hernia mash in the ____, coronary artery disease, history of coronary stent, hypertens ion, may have sleep apnea syndrome. Clinically, patient doing okay. Being followed by surgery, sche duled to go back to operating room for possible mesh removal. Sleep apnea precaution. Keep head yarely vated at 45 degrees. Incentive spirometer. Gastric prophylaxis, deep venous thrombosis prophylaxis. Thank you and we will follow with you. Dakotah Farrar MD cc: [id number] TT: 11/27/2016 16:15:24 Confirmation # [id number] Dictation # [id number] sn
--- NOTE | 2016-11-27 18:51 | CP.PCM.PCO ---
Physician Communication Note - Physician Communication Note Physician Communication Note: Plan bowel prep Friday
--- NOTE | 2016-11-27 21:23 | CP.PCM.PN ---
Subjective - Date & Time of Evaluation Date of Evaluation: 11/27/16 Time of Evaluation: 11:15 - Subjective Subjective: Tolerating his physical rehab, less pain the left lower quadrant area, no fevers overnight. Objective - Vital Signs/Intake and Output Vital Signs (last 24 hours): Temp Pulse Resp BP Pulse Ox 99 F 93 H 18 111/62 96 11/25/16 16:00 11/25/16 16:00 11/25/16 16:00 11/26/16 09:28 11/25/16 16:00 - Medications Medications: Current Medications Amlodipine Besylate (Norvasc) 10 mg PO DAILY ZACK PRN Reason: Protocol Last Admin: 11/26/16 09:28 Dose: 10 mg Aspirin (Ecotrin) 81 mg PO DAILY ZACK PRN Reason: Protocol Last Admin: 11/26/16 09:29 Dose: 81 mg Atorvastatin Calcium (Lipitor) 20 mg PO DIN ZACK PRN Reason: Protocol Last Admin: 11/26/16 17:33 Dose: 20 mg Docusate Sodium (Colace) 200 mg PO BID ZACK PRN Reason: Protocol Last Admin: 11/26/16 17:34 Dose: Not Given Ergocalciferol (Drisdol 50,000 Intl Units Cap) 1 cap PO Fr@1000 ZACK PRN Reason: Protocol Last Admin: 11/22/16 10:55 Dose: 1 cap Famotidine (Pepcid) 20 mg PO HS ZACK PRN Reason: Protocol Last Admin: 11/26/16 23:11 Dose: 20 mg Vancomycin HCl (Vancomycin 1gm) 1 gm in 250 mls @ 167 mls/hr IVPB Q12H ZACK PRN Reason: Protocol Last Admin: 11/27/16 00:08 Dose: 167 mls/hr Piperacillin Sod/Tazobactam Sod (Zosyn 3.375 In Ns 100ml) 100 mls @ 200 mls/hr IVPB Q6 ZACK PRN Reason: Protocol Stop: 12/03/16 06:33 Last Admin: 11/27/16 06:07 Dose: 200 mls/hr Lactulose (Enulose) 20 gm PO DAILY AZCK PRN Reason: Protocol Last Admin: 11/26/16 09:30 Dose: Not Given Levothyroxine Sodium (Synthroid) 25 mcg PO 0600 ZACK Last Admin: 11/27/16 06:07 Dose: 25 mcg Lisinopril (Zestril) 10 mg PO DAILY ZACK PRN Reason: Protocol Last Admin: 11/26/16 09:28 Dose: 10 mg Multivitamins/Minerals (Therapeutic-M Tab) 1 tab PO DAILY ZACK PRN Reason: Protocol Last Admin: 11/26/16 09:29 Dose: 1 tab Mupirocin (Bactroban Ointment) 0 gm TOP BID ZACK Last Admin: 11/26/16 17:33 Dose: 1 applic Ondansetron HCl (Zofran Inj) 4 mg IVP Q4 PRN; Protocol PRN Reason: Nausea/Vomiting Tramadol/Acetaminophen (Ultracet 37.5/325 Mg) 1 tab PO Q6H PRN PRN Reason: Pain, Mild (1-3) Last Admin: 11/26/16 15:02 Dose: 1 tab Vitamin A (Vitamin A & D Oint Ud Foilpak) 1 ea TOP Q6H PRN; Protocol PRN Reason: Dry skin Last Admin: 11/24/16 09:38 Dose: 1 ea Zolpidem Tartrate (Ambien) 5 mg PO HS PRN PRN Reason: Insomnia Last Admin: 11/25/16 21:13 Dose: 5 mg - Labs Labs: 11/26/16 06:30 11/26/16 06:30 - Constitutional Appears: Non-toxic, No Acute Distress - Head Exam Head Exam: NORMAL INSPECTION - Neck Exam Neck Exam: absent: Meningismus - Respiratory Exam Respiratory Exam: Decreased Breath Sounds - Cardiovascular Exam Cardiovascular Exam: +S1, +S2 - GI/Abdominal Exam GI & Abdominal Exam: Soft. 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 Rodriguez); reviewed CT scan of the abdomen and pelvis Will continue to follow clinically
[2016-11-28] MEDS: Piperacillin/Tazobact 3.375 gm 100 ML IVPB SCH ×4 (05:11→23:13)
[2016-11-28] MEDS: Levothyroxine 25 MCG TAB PO SCH (05:11)
--- NOTE | 2016-11-28 07:37 | PN ---
DATE: 11/27/2016 SUBJECTIVE: The patient seen and examined on the bedside, looks comfortable except that abdominal pain. According to the patient, nothing is helping for his pain. It is constant. Even length of time discussion done with AMBAR Olvera also and was informed that october the patient Friday will go for surgery, had good bowel movement. No symptoms of obstruction. No nausea, vomiting, or diarrhea. mild inguinal area discomfort. PHYSICAL EXAMINATION: VITAL SIGNS: Temperature 98.2, heart rate 70, respirations 20, blood pressure 120/59, and pulse oximetry is 96% on room air. HEENT: Head normocephalic, atraumatic. Eyes: PERRLA. Extraocular muscles intact. Conjunctivae clear. Nose patent. Mucous membranes moist. NECK: Supple. No carotid bruit, JVD or thyromegaly. CHEST: Bilaterally symmetrical. HEART: S1, S2 positive. LUNGS: Clear to auscultation. ABDOMEN: Soft. Bowel sounds present No organomegaly. EXTREMITIES: No edema, no cyanosis. NEUROLOGIC: The patient is awake, alert, moving all 4 extremities, no focal deficit. MEDICATIONS: Ambien, Colace, vitamin D, Ecotrin, lactulose, Lipitor, Norvasc, Pepcid, Synthroid, vancomycin, vitamin A and D, Zofran, Zosyn. LABORATORY DATA: We do not have recent labs today, but I reviewed old labs. ASSESSMENT AND PLAN: The patient is a 81-year-old male with status post incision and drainage of the left inguinal abscess, history of repair with hernia mesh in that left inguinal area, coronary artery disease, history of coronary artery stents, hypertension, has sleep apnea syndrome. The patient is doing well, being followed up by surgery. The patient has to go back to operating room, october be Friday for final surgery, removing of the mesh. Also has sleep apnea syndrome. Continue incentive spirometer. Gastrointestinal and deep venous thrombosis prophylaxis. Repeat labs. We will follow up. Hannah Ramirez MD cc: [id number] TT: 11/28/2016 07:37:24 Confirmation # [id number] Dictation # [id number] [facility]
--- NOTE | 2016-11-28 09:38 | PN ---
DATE: 11/28/2016 The patient was seen earlier in [facility]. The patient is in bed, no acute distress, nontoxic. PHYSICAL EXAMINATION: VITAL SIGNS: Temperature 99, blood pressure is 108/60, respiratory rate of 20. HEENT: Unremarkable. NECK: Supple. LUNGS: Decreased breath sounds. HEART: Normal S1, S2. ABDOMEN: Soft, nontender. LABORATORY EXAMINATION: Reveals a white count of 14,000 and hemoglobin of 11. BUN of 24, creatinine of 0.9. Microbiology reveals the blood cultures are negative. Review of orders reveals the patient to be on IV vancomycin and Zosyn. 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 Review of the microb iology reveals the blood cultures are negative. The groin cultures from 11/18 are positive for Proteus which is pansensitive. Review of orders, the patient is currently on Zosyn and IV vancomycin. We w ill follow with you and order a vancomycin level. Jonathan Woods MD cc: [id number] TT: 11/28/2016 09:37:58 Confirmation # [id number] Dictation # [id number] tn
--- NOTE | 2016-11-28 09:56 | CP.PCM.PN ---
Subjective - Date & Time of Evaluation Date of Evaluation: 11/28/16 Time of Evaluation: 06:45 - Subjective Subjective: Vijay Caro D.O. PGY-1, General Surgery Progress Note: Dr. Michael Churchill. 81 year old male who presented with left inguinal/groin pain, found to have left groin abscess s/p I&D POD#10. Patient was seen and examined at bedside in the TCU and is doing very well. Patient is optimistic and in a great mood, states that now that he understands his condition a little better its brought him more at ease. Patient states that the LLQ isn't even as painful as it usually is. Objective - Vital Signs/Intake and Output Vital Signs (last 24 hours): Temp Pulse Resp BP Pulse Ox 99.2 F 64 20 108/63 97 11/27/16 16:00 11/27/16 16:00 11/27/16 16:00 11/27/16 16:00 11/27/16 16:00 - Medications Medications: Current Medications Amlodipine Besylate (Norvasc) 10 mg PO DAILY ZACK PRN Reason: Protocol Last Admin: 11/27/16 09:52 Dose: 10 mg Aspirin (Ecotrin) 81 mg PO DAILY ZACK PRN Reason: Protocol Last Admin: 11/27/16 09:52 Dose: 81 mg Atorvastatin Calcium (Lipitor) 20 mg PO DIN ZACK PRN Reason: Protocol Last Admin: 11/27/16 17:34 Dose: 20 mg Docusate Sodium (Colace) 200 mg PO BID ZACK PRN Reason: Protocol Last Admin: 11/27/16 17:34 Dose: Not Given Ergocalciferol (Drisdol 50,000 Intl Units Cap) 1 cap PO Fr@1000 ZACK PRN Reason: Protocol Last Admin: 11/22/16 10:55 Dose: 1 cap Famotidine (Pepcid) 20 mg PO HS ZACK PRN Reason: Protocol Last Admin: 11/27/16 21:40 Dose: 20 mg Vancomycin HCl (Vancomycin 1gm) 1 gm in 250 mls @ 167 mls/hr IVPB Q12H ZACK PRN Reason: Protocol Last Admin: 11/27/16 23:46 Dose: 167 mls/hr Piperacillin Sod/Tazobactam Sod (Zosyn 3.375 In Ns 100ml) 100 mls @ 200 mls/hr IVPB Q6 ZACK PRN Reason: Protocol Stop: 12/03/16 06:33 Last Admin: 11/28/16 05:11 Dose: 200 mls/hr Lactulose (Enulose) 20 gm PO DAILY ZACK PRN Reason: Protocol Last Admin: 11/27/16 09:53 Dose: Not Given Levothyroxine Sodium (Synthroid) 25 mcg PO 0600 ZACK Last Admin: 11/28/16 05:11 Dose: 25 mcg Lisinopril (Zestril) 10 mg PO DAILY ZACK PRN Reason: Protocol Last Admin: 11/27/16 09:52 Dose: 10 mg Multivitamins/Minerals (Therapeutic-M Tab) 1 tab PO DAILY ZACK PRN Reason: Protocol Last Admin: 11/27/16 09:53 Dose: 1 tab Mupirocin (Bactroban Ointment) 0 gm TOP BID ZACK Last Admin: 11/27/16 17:34 Dose: 1 applic Ondansetron HCl (Zofran Inj) 4 mg IVP Q4 PRN; Protocol PRN Reason: Nausea/Vomiting Tramadol/Acetaminophen (Ultracet 37.5/325 Mg) 1 tab PO Q6H PRN PRN Reason: Pain, Mild (1-3) Last Admin: 11/27/16 23:18 Dose: 1 tab Vitamin A (Vitamin A & D Oint Ud Foilpak) 1 ea TOP Q6H PRN; Protocol PRN Reason: Dry skin Last Admin: 11/24/16 09:38 Dose: 1 ea Zolpidem Tartrate (Ambien) 5 mg PO HS PRN PRN Reason: Insomnia Last Admin: 11/25/16 21:13 Dose: 5 mg - Labs Labs: 11/26/16 06:30 11/26/16 06:30 - Constitutional Appears: Well developed, skinny elderly male, No Acute Distress, pleasant - Eye Exam Eye Exam: Normal appearance, EOMI - ENT Exam ENT Exam: Mucous Membranes Moist - Respiratory Exam Respiratory Exam: NORMAL BREATHING PATTERN, no accessory muscle use - Cardiovascular Exam Cardiovascular Exam: RRR - GI/Abdominal Exam GI & Abdominal Exam: Soft, LLQ/groin dressing changed at bedside with some drainage on previous bandage, +BSx4 - Extremities Exam Extremities Exam: absent: Tenderness Assessment and Plan - Assessment and Plan (Free Text) Assessment: 81 year old male who presented with left inguinal/groin pain, found to have left groin abscess, s/p I&D POD#10, with mesh involvement and with colonic fistula etiology. Plan: Cont QD packing changes, done at bedside Cont IV abx, appreciate ID recs Plan for OR 12/02 for left inguinal mesh removal/wound exploration and ex-lap with colon resection with Dr. Bruce Ace Bowel prep beginning tomorrow Seen walking with PT, continue to encourage ambulation Discussed with attending physician. Thank you for the pleasure of participating in the care of this patient.
--- NOTE | 2016-11-28 10:24 | PN ---
DATE: 11/28/2016 SUBJECTIVE: The patient is lying in bed. He is still complaining of some mild left lower quadrant a bdominal pain. PHYSICAL EXAMINATION: VITAL SIGNS: Reveal temperature of 99.2, blood pressure 108/63, heart rate 64. ABDOMEN: Soft. He has a surgical packing of his left lower quadrant wound, which has some purulent drainage. LABORATORY DATA: There are no new laboratory reports. IMPRESSION: A 81-year-old male with an infected hernia mesh with most recent CAT scan showing divert iculitis of the descending colon. The patient continues to have purulent drainage at his surgical si te. RECOMMENDATIONS: Continue surgical followup. The patient will need removal of his hernia mesh, as w ell as possible colon resection. Daniel Landry MD cc: [id number] TT: 11/28/2016 10:24:04 Confirmation # [id number] Dictation # [id number] jn
[2016-11-28] MEDS: Multivitamin With Minerals Tab PO SCH (10:48)
[2016-11-28] MEDS: Vancomycin 1gm in NS 250ml 1 GM/250 ML BAG IVPB SCH ×2 (13:43→23:52)
[2016-11-28] MEDS: TraMADol/Apap 37.5/325 mg Tab PO PRN ×2 (15:50→21:38)
--- NOTE | 2016-11-29 00:33 | PN ---
DATE: 11/28/2016 SUBJECTIVE: He is lying in the bed, head at 45 degrees. Just came back from the bathroom, feels bet ter after passing a lot of gas. Daughter is at bedside. No headache, no rhinitis, no cough, no naus ea. Still has left inguinal discomfort. No leg pain or leg swelling. OBJECTIVE: GENERAL: No acute distress. VITAL SIGNS: Temp is 98, heart rate is 64, respiratory rate is 18, blood pressure 145/64, pulse ox 9 8% on room air. HEENT: Moist mucous membranes. Crowded airway. NECK: Supple. No JVD. LUNGS: Fair airflow with rhonchi. HEART: S1 and S2. ABDOMEN: Soft, nontender. No organomegaly. Left groin area has tenderness, swelling. Has a dressi ng. EXTREMITIES: No edema. NEUROLOGIC: Awake, alert, follows simple commands. MEDICATIONS: He is on Ambien 5 mg at bedtime p.r.n., Bactroban ointment to the affected area twice a day, Colace 200 mg daily, vitamin D 50,000 units weekly, Ecotrin 81 mg daily, lactulose 20 g p.o. d aily, Lipitor 20 mg daily, Norvasc 10 mg daily, Pepcid 20 mg at bedtime, Synthroid 25 mcg daily, mult ivitamins daily, Ultracet 37.5/325 one tab q. 6 hours p.r.n., vancomycin 1 g IV q. 12 hours, vitamin A and D, apply affected area q. 6 hours p.r.n., Zestril 10 mg daily, Zofran p.r.n. basis, Zosyn 3.375 g q. 6 hours. LABORATORY DATA: Reviewed and noted. No new lab is available. MICROBIOLOGY: Blood culture has been negative. IMPRESSION AND PLAN: Status post incision and drainage of the left inguinal abscess, history of cameron ia repair in the past, coronary artery disease, history of coronary stent, hypertension, may have sle ep apnea syndrome. Case discussed with the family at bedside. All their questions answered. Bennie staples for surgical decision for surgery. Sleep apnea precaution. Avoid sedation. Gastric prophylaxis. Deep venous thrombosis prophylaxis. Antibiotics as per infectious diseases. Out of bed to chair. Thank you, and will follow with you. Dakotah Farrar MD cc: [facility] TT: 11/29/2016 00:32:25 Confirmation # [id number] Dictation # [id number] dn
[2016-11-29] MEDS: Piperacillin/Tazobact 3.375 gm 100 ML IVPB SCH ×4 (05:16→23:18)
[2016-11-29] MEDS: Levothyroxine 25 MCG TAB PO SCH (05:16)
[2016-11-29 07:09] LABS: ADD MANUAL DIFF? NO; BASO # 0.03 K/mm3 (0.0-2.0); BASO % 0.4 % (0.0-3.0); EOS # 0.5 (0.0-0.7); GRAN % 64.3 % (50.0-68.0); HEMATOCRIT 33.5 % (42.0-52.0); LYMPH # 1.6 (1.2-3.4); LYMPH % 19.8 % (22.0-35.0); MEAN CELL VOLUME 89.6 fL (80.0-105.0); MEAN CORPUSCULAR HEMOGLOBIN 31.8 pg (25.0-35.0); MEAN CORPUSCULAR HGB CONC 35.5 g/dl (31.0-37.0); MEAN PLATELET VOLUME 9.2 fl (7.0-11.0); MONO # 0.8 (0.1-0.6); MONO % 9.5 % (1.0-6.0); PLATELET COUNT 482 10^3/uL (120.0-450.0); RED CELL DISTRIBUTION WIDTH 13.1 % (11.5-14.5); WHITE BLOOD COUNT 8.2 10^3/ul (4.5-11.0)
--- NOTE | 2016-11-29 08:58 | PN ---
DATE: 11/28/2016 SUBJECTIVE: The patient was seen and examined on 11/28/16 on the bedside. He is still having pain in the left lower quadrant and abscess still draining. Discussion done with the patient's daughter, Carola joy, on the phone. No headache, no rhinitis, no fever, no chills, no nausea or vomiting. No hemat uria or hematochezia. Did bowel movement, feeling better. PHYSICAL EXAMINATION: VITAL SIGNS: Temperature 98, heart rate 64, respiratory rate 18, blood pressure 145/64, pulse oximet ry 98% on room air. HEENT: Head normocephalic, atraumatic. Eyes: PERRLA. Extraocular muscles intact. Conjunctivae cl ear. Nose patent. Mucous membranes moist. NECK: Supple. No carotid bruit, JVD or thyromegaly. CHEST: Bilaterally symmetrical. HEART: S1, S2 positive. LUNGS: Clear to auscultation. ABDOMEN: Soft. Bowel sounds present. No organomegaly. EXTREMITIES: No edema, no cyanosis. NEUROLOGIC: The patient is awake, alert, moving all 4 extremities. No focal deficit. MEDICATIONS: Ambien, Bactroban ointment, Colace, vitamin D, Ecotrin, lactulose, Lipitor, Norvasc, Pe pcid, Synthroid, multivitamins, Ultracet, vancomycin, vitamin A and D, Zestril, Zofran, and Zosyn. LABORATORY DATA: We do not have recent labs today, but I reviewed old labs. ASSESSMENT AND PLAN: The patient is a 81-year-old male, status post incision and drainage of the lef t inguinal abscess, history of hernia repair in the past, coronary artery disease, history of coronar y stent, hypertension, sleep apnea syndrome. According to surgeon, the patient has to go for surgery on Friday. Over the weekend, they prepare the patient. Sleep apnea precautions. Avoid sedation. Gastric prophylaxis and deep venous thrombosis prophylaxis. Continue antibiotics as per infectious d amarilis. Discussion done with patient's daughter, Jayne. We will follow up. Hannah Ramirez MD cc: [id number] TT: 11/29/2016 08:58:23 Confirmation # [id number] Dictation # [id number] tn
--- NOTE | 2016-11-29 09:29 | PN ---
DATE: 11/29/2016 SUBJECTIVE: The patient is lying in bed, comfortable. He states that his left lower quadrant abdomi nal pain is less. His dressing was changed this morning. PHYSICAL EXAMINATION: VITAL SIGNS: Reveal temperature of 98.7, blood pressure 145/64, heart rate is 64. ABDOMEN: Soft. He has a surgical wound in his left lower quadrant without any appreciable drainage; however, his dressing was just recently changed. No new laboratory data are available. IMPRESSION: A 81-year-old male admitted to the hospital with left lower quadrant abdominal pain, fou nd to have an infected mesh which has grown proteus with a CT scan of the abdomen showing diverticuli tis of the descending colon. He has been on antibiotics for the last week. RECOMMENDATIONS: The patient is to have surgery for complete removal of the hernia mesh and possible left colon resection for diverticulitis. Daniel Landry MD cc: [id number] TT: 11/29/2016 09:29:27 Confirmation # [id number] Dictation # [id number] cn
[2016-11-29 10:21] VITALS: O2SAT 97
[2016-11-29] MEDS: Ergocalciferol 50,000 Intl Units Cap PO SCH (10:38)
[2016-11-29] MEDS: Multivitamin With Minerals Tab PO SCH (10:40)
[2016-11-29] MEDS ORDERED: Peg-Electrolyte Oral Soln 4L (Golytely) PO ONE (11:00)
--- NOTE | 2016-11-29 18:42 | PN ---
DATE: 11/29/2016 REASON FOR CONSULTATION: Coronary artery disease, hypertension, hyperlipidemia, status post drainage of inguinal hernia, discharge from the abscess site. SUBJECTIVE: The patient denies any chest pain, shortness of breath, but complained of pain in the in guinal area and discharge from the surgical site. PHYSICAL EXAMINATION: VITAL SIGNS: Temperature afebrile, heart rate 73, blood pressure 148/73. HEENT: PERRLA. Extraocular muscles intact. NECK: Supple. No carotid bruits. No thyromegaly. CHEST: Clear to auscultation. HEART: S1, S2 regular. ABDOMEN: Soft. EXTREMITIES: Clubbing and cyanosis negative. LABORATORY DATA: Blood workup as follows: WBC , hemoglobin 11.9, hematocrit 33.5, platelet cou nt 482. Chemistry shows sodium 129, potassium 4.3, chloride , carbon dioxide , anion gap o f 11, BUN , creatinine 0.9. IMPRESSION: History of coronary artery disease status post a stent, history of inguinal abscess stat us post drainage, poor appetite, hypertension, hyperlipidemia, deconditioning of the body. RECOMMENDATION: I discussed with the surgical garment assembler who is going to change the dressing and I dis cussed with the patient that he needs exploration. Continue amlodipine, continue . CV status i s stable. Will sign off. Glad to follow p.r.n. Thank you, Dr. Ramirez, for providing me the opportunity in taking care of the patient. Dakotah Chicas MD cc: [id number] TT: 11/29/2016 18:41:34 Confirmation # [id number] Dictation # [id number] dn
--- NOTE | 2016-11-29 19:04 | CP.PCM.PN ---
Subjective - Date & Time of Evaluation Date of Evaluation: 11/29/16 Time of Evaluation: 11:15 - Subjective Subjective: Comfortable, afebrile, not in distress. Objective - Vital Signs/Intake and Output Vital Signs (last 24 hours): Temp Pulse Resp BP Pulse Ox 99.1 F 73 18 148/73 97 11/29/16 16:00 11/29/16 16:00 11/29/16 16:00 11/29/16 16:00 11/29/16 10:00 - Medications Medications: Current Medications Amlodipine Besylate (Norvasc) 10 mg PO DAILY ZACK PRN Reason: Protocol Last Admin: 11/29/16 10:39 Dose: 10 mg Aspirin (Ecotrin) 81 mg PO DAILY ZACK PRN Reason: Protocol Last Admin: 11/29/16 10:38 Dose: 81 mg Atorvastatin Calcium (Lipitor) 20 mg PO DIN ZACK PRN Reason: Protocol Last Admin: 11/29/16 17:30 Dose: 20 mg Docusate Sodium (Colace) 200 mg PO BID ZACK PRN Reason: Protocol Last Admin: 11/29/16 17:29 Dose: Not Given Ergocalciferol (Drisdol 50,000 Intl Units Cap) 1 cap PO Fr@1000 ZACK PRN Reason: Protocol Last Admin: 11/29/16 10:38 Dose: 1 cap Famotidine (Pepcid) 20 mg PO HS ZACK PRN Reason: Protocol Last Admin: 11/28/16 21:33 Dose: 20 mg Piperacillin Sod/Tazobactam Sod (Zosyn 3.375 In Ns 100ml) 100 mls @ 200 mls/hr IVPB Q6 ZACK PRN Reason: Protocol Stop: 12/03/16 06:33 Last Admin: 11/29/16 17:30 Dose: 200 mls/hr Vancomycin HCl (Vancomycin 1gm) 1 gm in 250 mls @ 167 mls/hr IVPB Q12H ZACK PRN Reason: Protocol Lactulose (Enulose) 20 gm PO DAILY ZACK PRN Reason: Protocol Last Admin: 11/29/16 10:38 Dose: Not Given Levothyroxine Sodium (Synthroid) 25 mcg PO 0600 ZACK Last Admin: 11/29/16 05:16 Dose: 25 mcg Lisinopril (Zestril) 10 mg PO DAILY ZACK PRN Reason: Protocol Last Admin: 11/29/16 10:40 Dose: 10 mg Multivitamins/Minerals (Therapeutic-M Tab) 1 tab PO DAILY ZACK PRN Reason: Protocol Last Admin: 11/29/16 10:40 Dose: 1 tab Mupirocin (Bactroban Ointment) 0 gm TOP BID ZACK Last Admin: 11/29/16 17:28 Dose: 1 applic Ondansetron HCl (Zofran Inj) 4 mg IVP Q4 PRN; Protocol PRN Reason: Nausea/Vomiting Tramadol/Acetaminophen (Ultracet 37.5/325 Mg) 1 tab PO Q6H PRN PRN Reason: Pain, Mild (1-3) Last Admin: 11/28/16 21:38 Dose: 1 tab Vitamin A (Vitamin A & D Oint Ud Foilpak) 1 ea TOP Q6H PRN; Protocol PRN Reason: Dry skin Last Admin: 11/24/16 09:38 Dose: 1 ea Zolpidem Tartrate (Ambien) 5 mg PO HS PRN PRN Reason: Insomnia Last Admin: 11/25/16 21:13 Dose: 5 mg - Labs Labs: 11/29/16 05:00 11/26/16 06:30 - Constitutional Appears: Non-toxic, No Acute Distress - Head Exam Head Exam: NORMAL INSPECTION - Neck Exam Neck Exam: absent: Meningismus - Respiratory Exam Respiratory Exam: Decreased Breath Sounds - Cardiovascular Exam Cardiovascular Exam: +S1, +S2 - GI/Abdominal Exam GI & Abdominal Exam: Soft. 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 Rodriguez); reviewed CT scan of the abdomen and pelvis Will continue to follow clinically
--- NOTE | 2016-11-29 22:46 | PN ---
DATE: 11/29/2016 REFERRING PHYSICIAN: Dr. Ramirez. SUBJECTIVE: The patient is lying in the bed, head at 45 degree, night was unremarkable. No headache , no rhinitis, no nausea, no vomiting. Continues to have left inguinal discomfort. No leg pain or l eg swelling. OBJECTIVE: GENERAL: No acute distress. VITAL SIGNS: Temperature is 99, heart rate is 73, respiratory rate is 18, blood pressure 148/73. HEENT: Moist mucous membranes. Crowded airway. NECK: Supple, no JVD. LUNGS: Have a fair airflow with few rhonchi. HEART: S1, S2. ABDOMEN: Soft. Left inguinal area tenderness, has a dressing. EXTREMITIES: There is no edema. NEUROLOGIC: Awake, alert, follows simple command. MEDICATIONS: He is on Ambien 10 mg at bedtime p.r.n., bacitracin ointment to the affected area, noam min D 50,000 units weekly, Ecotrin 81 mg daily, Lipitor 20 mg daily, Norvasc 10 mg daily, Pepcid 20 m g daily, Synthroid 25 mcg daily, multivitamins daily, Ultracet 37.5/325 one tab q. 6 hours p.r.n., vancomycin 1 g IV q. 12 hours, vitamin, A and D ointment to rectal area, Zestril 10 mg daily and Zofr an on a p.r.n. basis, Zosyn 3.375 g IV q. 6 hours. LABORATORY DATA: Shows hemoglobin 11.9, hematocrit 32.5, WBC 8.2, platelet count is 482. Vancomycin trough level is 22. MICROBIOLOGY: Blood culture, urine culture, there is no growth. IMPRESSION AND PLAN: Status post incision and drainage of the left inguinal abscess, history of cameron ia repair in the past has a mesh, coronary artery disease, history of coronary stent, hypertension, m ay have sleep apnea syndrome, on antibiotics. Waiting for surgical decision for further care. Cristal nue gastric prophylaxis, deep venous thrombosis prophylaxis. Sleep apnea precautions. Out of bed to chair. Thank you and will follow with you. Dakotah Farrar MD cc: [id number] TT: 11/29/2016 22:45:05 Confirmation # [id number] Dictation # [id number] jn
--- NOTE | 2016-11-29 23:14 | PN ---
DATE: 11/29/2016 SUBJECTIVE: The patient is seen and examined on the bedside, still complaining of pain in the left lower quadrant, had bowel movement x 2. He has a drink of GoLYTELY for tomorrow. No fever, no chills. Appetite is appropriate. Night was okay. PHYSICAL EXAMINATION: VITAL SIGNS: Temperature 99.1, pulse 73, respiratory rate 18, blood pressure 148/73, and pulse oximetry 97. HEENT: Head normocephalic, atraumatic. Eyes: PERRLA. Extraocular muscles intact. Conjunctivae clear. Nose patent. Mucous membranes moist. NECK: Supple. No carotid bruit, JVD or thyromegaly. CHEST: Bilaterally symmetrical. HEART: S1, S2 positive. LUNGS: Clear to auscultation. ABDOMEN: Soft. Bowel sounds present. No organomegaly. EXTREMITIES: No edema, no cyanosis. NEUROLOGIC: The patient is awake, alert, moving all 4 extremities. No focal deficits. MEDICATIONS: Norvasc, Ecotrin, Lipitor, Colace, vitamin D, Pepcid, Zosyn, vancomycin, Bactroban, Zofran, Ultracet, Ambien. LABORATORY DATA: White blood cells 8.2, hemoglobin 11.9, hematocrit 33.5, platelets 482. Sodium 129, potassium 4.3, BUN 24, creatinine 0.9, glucose 109. 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 PLAN: Continue Zosyn, switched from cefazolin. Further plan is the patient has to go for surgery on Friday, over the weekend will get ready for that. Review ID note. They had discussion done with Dr. Rodriguez. CT scan of abdomen and pelvis done. Gastrointestinal and deep venous thrombosis prophylaxis. 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 Repeat labs. We will follow. Hannah Ramirez MD cc: [id number] TT: 11/29/2016 23:13:23 Confirmation # [id number] Dictation # [id number] MTDD
[2016-11-30] MEDS: Vancomycin 1gm in NS 250ml 1 GM/250 ML BAG IVPB SCH ×2 (00:24→13:12)
[2016-11-30] MEDS: Piperacillin/Tazobact 3.375 gm 100 ML IVPB SCH ×2 (05:08→12:06)
[2016-11-30] MEDS: Levothyroxine 25 MCG TAB PO SCH (05:15)
[2016-11-30 06:20] VITALS: RESP 16; TEMP 99.3
[2016-11-30] MEDS: Multivitamin With Minerals Tab PO SCH (10:37)
[2016-11-30 10:46] VITALS: BP 119/65; PULSE 95
--- NOTE | 2016-11-30 15:55 | CP.PCM.PCO ---
Physician Communication Note - Physician Communication Note Physician Communication Note: c/o pain(Dilaudid Rx)/On bowel prep--?med surgery am
--- NOTE | 2016-11-30 17:49 | PN ---
DATE: 11/30/2016 REFERRING PHYSICIAN: Dr. Ramirez. SUBJECTIVE: He is lying in the bed, drinking GoLYTELY. No headache, no rhinitis, mild left inguinal area discomfort. No dysuria. No leg pain or leg swelling. OBJECTIVE: GENERAL: No acute distress. VITAL SIGNS: Temperature is 99.3, heart rate is 95, respiratory rate is 16, blood pressure 119/65. HEENT: Moist mucous membrane. No ulcer or oral thrush noted. NECK: Supple. No JVD. LUNGS: Have a fair airflow with few rhonchi. HEART: S1 and S2. ABDOMEN: Soft. Left inguinal area tender. It has a dressing. EXTREMITIES: There is no edema. NEUROLOGIC: . CURRENT MEDICATIONS: He is on Ambien 5 mg at bedtime p.r.n., vitamin D 1000 units daily, Ecotrin 81 mg daily, 250 mg q. 6 hours, Lipitor 20 mg daily, neomycin 500 mg q. 6 hours, Norvasc 10 mg trever ly, Pepcid 20 mg at bedtime, Synthroid 25 mg daily, multivitamin daily, Ultracet 37.5/ mg q. 6 h ours p.r.n., vancomycin 1 g q. 12 hours, vitamin A and D to affected areas, Zestril 10 mg daily, Zofr an on a p.r.n. basis, Zosyn 3.375 g IV q. 6 hours. LABORATORY DATA: Reviewed. IMPRESSION AND PLAN: Status post incision and drainage of the left inguinal , has a history of hernia repair, also has mesh for hernia repair, coronary artery disease, history of coronary stent, h ypertension, sleep apnea syndrome. The patient is getting ready for possible surgery, surgery prepar ation. If sedated, needs close cardiopulmonary monitoring for sleep apnea syndrome. Gastric prophyl axis. Sequential compression device to lower extremities. Thank you and will follow with you. Dakotah Farrar MD cc: [id number] TT: 11/30/2016 17:48:32 Confirmation # [id number] Dictation # [id number]
== END 2016-11-30 16:34 | disposition short-term general hospital (02) | DRG 872 ==
LOC: TRCU 16:20
PROVIDERS: ADMIT Internal Medicine; ATTEND Internal Medicine
PROC: F07Z9ZZ Gait Training/Functional Ambulation Treatment (ICD-10-PCS; principal; 2016-11-22)
PROC: F07M6ZZ Therapeutic Exercise Treatment of Musculoskeletal System - Whole Body (ICD-10-PCS; 2016-11-22)
PROC: F08Z2ZZ Grooming/Personal Hygiene Treatment (ICD-10-PCS; 2016-11-22)
PROC: F08Z1ZZ Dressing Techniques Treatment (ICD-10-PCS; 2016-11-22)
PROC: F08Z0ZZ Bathing/Showering Techniques Treatment (ICD-10-PCS; 2016-11-22)
DX: A41.9 Sepsis, unspecified organism (principal); K63.2 Fistula of intestine; T81.30XA Disruption of wound, unspecified, initial encounter; K57.32 Diverticulitis of large intestine without perforation or abscess without bleeding; E87.1 Hypo-osmolality and hyponatremia; T85.79XA Infection and inflammatory reaction due to other internal prosthetic devices, implants and grafts, initial encounter; L02.214 Cutaneous abscess of groin; J44.9 Chronic obstructive pulmonary disease, unspecified; K40.90 Unilateral inguinal hernia, without obstruction or gangrene, not specified as recurrent; I10 Essential (primary) hypertension; I25.10 Atherosclerotic heart disease of native coronary artery without angina pectoris; K59.00 Constipation, unspecified; K64.9 Unspecified hemorrhoids; M19.90 Unspecified osteoarthritis, unspecified site; G89.29 Other chronic pain; G47.30 Sleep apnea, unspecified; E78.5 Hyperlipidemia, unspecified; E78.00 Pure hypercholesterolemia, unspecified; E11.9 Type 2 diabetes mellitus without complications; E03.9 Hypothyroidism, unspecified; D64.9 Anemia, unspecified; D47.3 Essential (hemorrhagic) thrombocythemia; Y83.2 Surgical operation with anastomosis, bypass or graft as the cause of abnormal reaction of the patient, or of later complication, without mention of misadventure at the time of the procedure; Z95.5 Presence of coronary angioplasty implant and graft; E55.9 Vitamin D deficiency, unspecified; R33.9 Retention of urine, unspecified; R53.81 Other malaise; M54.9 Dorsalgia, unspecified; Z98.42 Cataract extraction status, left eye; Z98.41 Cataract extraction status, right eye; B96.4 Proteus (mirabilis) (morganii) as the cause of diseases classified elsewhere; G47.00 Insomnia, unspecified

== ENCOUNTER 2016-11-30 14:54 | Inpatient (IN) | payer MEDICARE, MEDICAID ==
--- NOTE | 2016-11-30 20:02 | CP.PCM.PN ---
Subjective - Date & Time of Evaluation Date of Evaluation: 11/30/16 Time of Evaluation: 19:58 - Subjective Subjective: Surgery for Dr. Barrera Pt s&e. [place]. Pt is taking Golytely. Tolerating well. Had multiple loose BM. Tolerating CLD. Dressing changed. Denies f/c/n/v/cp/sob. Procedure explained to family. Objective - Vital Signs/Intake and Output Vital Signs (last 24 hours): Temp Pulse Resp BP Pulse Ox 98.1 F 73 19 155/81 H 95 11/30/16 17:50 11/30/16 17:50 11/30/16 17:50 11/30/16 17:50 11/30/16 17:50 - Medications Medications: Current Medications Amlodipine Besylate (Norvasc) 10 mg PO DAILY [facility] Aspirin (Ecotrin) 81 mg PO DAILY [facility] Atorvastatin Calcium (Lipitor) 20 mg PO DIN [facility] Last Admin: 11/30/16 18:22 Dose: 20 mg Ergocalciferol (Drisdol 50,000 Intl Units Cap) 1 cap PO Q7D [facility] Erythromycin (Erythromycin) 250 mg PO Q6 [facility] PRN Reason: Protocol Last Admin: 11/30/16 18:16 Dose: 250 mg Famotidine (Pepcid) 20 mg PO HS [facility] Vancomycin HCl (Vancomycin 1gm) 1 gm in 250 mls @ 167 mls/hr IVPB Q12H [facility] PRN Reason: Protocol Levothyroxine Sodium (Synthroid) 25 mcg PO 0600 [facility] Lisinopril (Zestril) 10 mg PO DAILY [facility] Multivitamins/Minerals (Therapeutic-M Tab) 1 tab PO 1000 [facility] Neomycin Sulfate (Neomycin Tab) 500 mg PO Q6 [facility] Last Admin: 11/30/16 18:16 Dose: 500 mg Ondansetron HCl (Zofran Inj) 4 mg IVP Q4H [facility] PRN Reason: Nausea/Vomiting Tramadol/Acetaminophen (Ultracet 37.5/325 Mg) 1 tab PO Q6H PRN PRN Reason: Pain, moderate (4-7) Zolpidem Tartrate (Ambien) 5 mg PO HS PRN; Protocol PRN Reason: Insomnia - Constitutional Appears: No Acute Distress - Head Exam Head Exam: ATRAUMATIC, NORMAL INSPECTION, NORMOCEPHALIC - Eye Exam Eye Exam: EOMI, Normal appearance, PERRL Pupil Exam: NORMAL ACCOMODATION, PERRL - ENT Exam ENT Exam: Mucous Membranes Moist, Normal Exam - Neck Exam Neck Exam: Full ROM, Normal Inspection. absent: Lymphadenopathy - Respiratory Exam Respiratory Exam: Clear to Ausculation Bilateral, NORMAL BREATHING PATTERN - Cardiovascular Exam Cardiovascular Exam: REGULAR RHYTHM, +S1, +S2. absent: Murmur - GI/Abdominal Exam GI & Abdominal Exam: Soft, Tenderness, Normal Bowel Sounds. absent: Distended, Firm, Guarding, Rigid Additional comments: L inguinal incision open. [address]. No bleeding. Dressing saturated this AM. Changed. - Exam Exam: NORMAL INSPECTION - Extremities Exam Extremities Exam: Full ROM, Normal Capillary Refill, Normal Inspection - Back Exam Back Exam: NORMAL INSPECTION - Neurological Exam Neurological Exam: Alert, Awake, CN II-XII Intact, Normal Gait, Oriented x3 - Psychiatric Exam Psychiatric exam: Normal Affect, Normal Mood - Skin Skin Exam: Dry, Intact, Normal Color, Warm Assessment and Plan - Assessment and Plan (Free Text) Assessment: 81 year old male who presented with left inguinal/groin pain, found to have left groin abscess, s/p I&D, with mesh involvement and with colonic fistula etiology. Plan: Cont dressing change prn. Cont IV abx, appreciate ID recs Plan for OR 12/02 for left inguinal mesh removal/wound exploration and ex-lap with colon resection with Dr. Bruce Ace Bowel prep Seen walking with PT, continue to encourage ambulation Discussed with attending physician.
[2016-11-30] MEDS: Vancomycin 1gm in NS 250ml 1 GM/250 ML BAG IVPB SCH (22:02)
[2016-11-30] MEDS ORDERED: Pneumococcal 23-Valent Vaccine IM ONE (23:03)
[2016-12-01] MEDS: Levothyroxine 25 MCG TAB PO SCH (05:26)
--- NOTE | 2016-12-01 08:20 | CP.PCM.PN ---
Subjective - Date & Time of Evaluation Date of Evaluation: 12/01/16 Time of Evaluation: 08:17 - Subjective Subjective: Surgery for Dr. Barrera Pt s&e. Tolerating golytely. Had loose BM. Reports some blood in the stool. Denies F/C/N/V/D/. Tolerating CLD. Ambulating. Dressing changed. Objective - Vital Signs/Intake and Output Vital Signs (last 24 hours): Temp Pulse Resp BP Pulse Ox 99.4 F 75 18 126/72 97 12/01/16 07:20 12/01/16 07:20 12/01/16 07:20 12/01/16 07:20 12/01/16 07:20 Intake and Output: 12/01/16 12/01/16 06:59 18:59 Intake Total 370 Output Total 700 Balance -330 - Medications Medications: Current Medications Amlodipine Besylate (Norvasc) 10 mg PO DAILY [facility] Aspirin (Ecotrin) 81 mg PO DAILY [facility] Atorvastatin Calcium (Lipitor) 20 mg PO DIN [facility] Last Admin: 11/30/16 18:22 Dose: 20 mg Ergocalciferol (Drisdol 50,000 Intl Units Cap) 1 cap PO Q7D [facility] Erythromycin (Erythromycin) 250 mg PO Q6 [facility] PRN Reason: Protocol Last Admin: 12/01/16 05:26 Dose: 250 mg Famotidine (Pepcid) 20 mg PO HS [facility] Last Admin: 11/30/16 22:01 Dose: 20 mg Vancomycin HCl (Vancomycin 1gm) 1 gm in 250 mls @ 167 mls/hr IVPB Q12H [facility] PRN Reason: Protocol Last Admin: 11/30/16 22:02 Dose: 167 mls/hr Piperacillin Sod/Tazobactam Sod (Zosyn 3.375 In Ns 100ml) 100 mls @ 200 mls/hr IVPB Q6 [facility] PRN Reason: Protocol Stop: 12/08/16 12:01 Levothyroxine Sodium (Synthroid) 25 mcg PO 0600 [facility] Last Admin: 12/01/16 05:26 Dose: 25 mcg Lisinopril (Zestril) 10 mg PO DAILY [facility] Multivitamins/Minerals (Therapeutic-M Tab) 1 tab PO 1000 [facility] Neomycin Sulfate (Neomycin Tab) 500 mg PO Q6 [facility] Last Admin: 12/01/16 05:26 Dose: 500 mg Ondansetron HCl (Zofran Inj) 4 mg IVP Q4H PRN PRN Reason: Nausea/Vomiting Tramadol/Acetaminophen (Ultracet 37.5/325 Mg) 1 tab PO Q6H PRN PRN Reason: Pain, moderate (4-7) Zolpidem Tartrate (Ambien) 5 mg PO HS PRN; Protocol PRN Reason: Insomnia Last Admin: 11/30/16 23:18 Dose: 5 mg - Constitutional Appears: No Acute Distress - Head Exam Head Exam: ATRAUMATIC, NORMAL INSPECTION, NORMOCEPHALIC - Eye Exam Eye Exam: EOMI, Normal appearance, PERRL Pupil Exam: NORMAL ACCOMODATION, PERRL - ENT Exam ENT Exam: Mucous Membranes Moist, Normal Exam - Neck Exam Neck Exam: Full ROM, Normal Inspection. absent: Lymphadenopathy - Respiratory Exam Respiratory Exam: Clear to Ausculation Bilateral, NORMAL BREATHING PATTERN - Cardiovascular Exam Cardiovascular Exam: REGULAR RHYTHM, +S1, +S2. absent: Murmur - GI/Abdominal Exam GI & Abdominal Exam: Soft, Normal Bowel Sounds. absent: Distended, Firm, Tenderness Additional comments: R inguinal hernia incition open draining minimal output. 7cm. Suture x2 in place. - Exam Exam: NORMAL INSPECTION - Neurological Exam Neurological Exam: Alert, Awake, CN II-XII Intact, Normal Gait, Oriented x3 - Psychiatric Exam Psychiatric exam: Normal Affect, Normal Mood - Skin Skin Exam: Dry, Erythema, Normal Color, Warm Assessment and Plan - Assessment and Plan (Free Text) Assessment: 81 year old male who presented with left inguinal/groin pain, found to have left groin abscess, s/p I&D, with mesh involvement and with colonic fistula etiology. Plan: Cont dressing change prn. Cont IV abx, appreciate ID recs Plan for OR 12/02 for left inguinal mesh removal/wound exploration and ex-lap with colon resection with Dr. Bruce Ace Bowel prep Seen walking with PT, continue to encourage ambulation Will Discuss with attending physician.
[2016-12-01] MEDS: Vancomycin 1gm in NS 250ml 1 GM/250 ML BAG IVPB SCH ×2 (10:51→21:16)
[2016-12-01] MEDS: Multivitamin With Minerals Tab PO SCH (10:51)
--- NOTE | 2016-12-01 12:11 | CP.PCM.CON ---
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 He underwent I and D about 12 days ago, and now he is transferred back to the acute care portion of the hospital because of planned colectomy tomorrow. Infectious Diseases consult is requested to continue his antibiotic management. Currently the patient is comfortable in bed, not in distress, no fever or chills, no nausea or vomiting, no chest pain, no SOB, no headache or dizziness, no diarrhea, no dysuria, no dysphagia. The pain in the left groin area has been improving. Review of Systems - Review of Systems All systems: reviewed and no additional remarkable complaints except (as per HPI ) Past Patient History - Infectious Disease Hx of Infectious Diseases: None - Tetanus Immunizations Tetanus Immunization: Unknown - Past Social History Smoking Status: Never Smoked - CARDIAC Hx Cardiac Disorders: Yes (CAD, Stents x2) Hx Hypercholesterolemia: Yes Hx Hypertension: Yes - PULMONARY Hx Respiratory Disorders: No - NEUROLOGICAL Hx Neurological Disorder: No - HEENT Hx Cataracts: Yes (b/l sx) - RENAL Hx Kidney Stones: No - ENDOCRINE/METABOLIC Hx Hypothyroidism: Yes - HEMATOLOGICAL/ONCOLOGICAL Other/Comment: vitamin d deficiency - INTEGUMENTARY Other/Comment: ble skin discoloration, llq abd ddressings x2 dry and intact over i&d site - MUSCULOSKELETAL/RHEUMATOLOGICAL Hx Musculoskeletal Disorders: Yes Hx Arthritis: Yes (spine) Hx Falls: No Hx Unsteady Gait: Yes - GASTROINTESTINAL Hx Gastrointestinal Disorders: Yes (hiatal hernia, gi bleed) - GENITOURINARY/GYNECOLOGICAL Hx Genitourinary Disorders: No - PSYCHIATRIC Hx Psychophysiologic Disorder: No Hx Substance Use: No - SURGICAL HISTORY Hx Coronary Stent: Yes (x2) Other/Comment: left inguinal hernia sx with mesh, abcess removed and I&d 11/18/16 infected mesh removed, Left inguinal fistula - ANESTHESIA Hx Anesthesia Reactions: No Hx Malignant Hyperthermia: No Meds Allergies/Adverse Reactions: Allergies Allergy/AdvReac Type Severity Reaction Status Date / Time No Known Allergies Allergy Verified 11/22/16 06:36 - Medications Medications: Current Medications Amlodipine Besylate (Norvasc) 10 mg PO DAILY [facility] Aspirin (Ecotrin) 81 mg PO DAILY [facility] Atorvastatin Calcium (Lipitor) 20 mg PO DIN [facility] Last Admin: 11/30/16 18:22 Dose: 20 mg Ergocalciferol (Drisdol 50,000 Intl Units Cap) 1 cap PO Q7D [facility] Erythromycin (Erythromycin) 250 mg PO Q6 [facility] PRN Reason: Protocol Last Admin: 12/01/16 05:26 Dose: 250 mg Famotidine (Pepcid) 20 mg PO HS [facility] Last Admin: 11/30/16 22:01 Dose: 20 mg Vancomycin HCl (Vancomycin 1gm) 1 gm in 250 mls @ 167 mls/hr IVPB Q12H [facility] PRN Reason: Protocol Last Admin: 11/30/16 22:02 Dose: 167 mls/hr Levothyroxine Sodium (Synthroid) 25 mcg PO 0600 [facility] Last Admin: 12/01/16 05:26 Dose: 25 mcg Lisinopril (Zestril) 10 mg PO DAILY [facility] Multivitamins/Minerals (Therapeutic-M Tab) 1 tab PO 1000 [facility] Neomycin Sulfate (Neomycin Tab) 500 mg PO Q6 [facility] Last Admin: 12/01/16 05:26 Dose: 500 mg Ondansetron HCl (Zofran Inj) 4 mg IVP Q4H PRN PRN Reason: Nausea/Vomiting Tramadol/Acetaminophen (Ultracet 37.5/325 Mg) 1 tab PO Q6H PRN PRN Reason: Pain, moderate (4-7) Zolpidem Tartrate (Ambien) 5 mg PO HS PRN; Protocol PRN Reason: Insomnia Last Admin: 11/30/16 23:18 Dose: 5 mg Physical Exam - Constitutional Appears: Non-toxic, No Acute Distress - Head Exam Head Exam: NORMAL INSPECTION - ENT Exam ENT Exam: Mucous Membranes Moist - Neck Exam Neck exam: Negative for: Lymphadenopathy, Meningismus - Respiratory Exam Respiratory Exam: Decreased Breath Sounds - Cardiovascular Exam Cardiovascular Exam: +S1, +S2 - GI/Abdominal Exam GI & Abdominal Exam: Soft. 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
[2016-12-01] MEDS: Piperacillin/Tazobact 3.375 gm 100 ML IVPB SCH ×3 (12:12→23:00)
--- NOTE | 2016-12-01 14:16 | PN ---
DATE: 12/01/2016 SUBJECTIVE: The patient is lying in bed, comfortable. He complains of mild left lower quadrant abdo chelsey pain. Denies any fevers or chills. PHYSICAL EXAMINATION: VITAL SIGNS: Reveal temperature of 99.4, blood pressure 126/72, heart rate 75. ABDOMEN: Soft. The patient has an open surgical wound in the left lower quadrant, which is draining serosanguineous, slightly purulent material. LABORATORY DATA: No new laboratory data are available. IMPRESSION: A 81-year-old male admitted to the hospital with infected hernia mesh, status post parti al removal of the mesh with recent CT scan of the abdomen and pelvis showing diverticulitis of the de scending colon. RECOMMENDATIONS: The patient is to have surgery tomorrow with complete removal of the mesh and possi ble exploration with left colon resection. Daniel Landry MD cc: [id number] TT: 12/01/2016 14:15:25 Confirmation # [id number] Dictation # [id number] ln
--- NOTE | 2016-12-01 14:50 | CP.PCM.CON ---
History of Present Illness - History of Present Illness History of Present Illness: General Surgery Consult Re: Pain, colocutaneous fistula HPI: 81M well known to the surgical service. Pt is prepping for surgery tomorrow for his colocutaneous fistula and inguinal wound. This was initially thought to be a recurrent inguinal hernia but was found to be an abscess near the old inguinal mesh. Currently C/O mild pain at incision site and general weakness (2/2 bowel prep). No other C/O. PMH: CAD, COPD, HTN, HLD, chronic back pain, arthritis, diverticulosis, internal hemorrhoids PSH: L inguinal hernia, Cardiac stents ,I&D of inguinal abscess SH: No tobacco, EtOH, or drug use All: NKDA Meds: See MAR Review of Systems - Review of Systems All systems: reviewed and no additional remarkable complaints except (as per HPI ) Past Patient History - Infectious Disease Hx of Infectious Diseases: None - Tetanus Immunizations Tetanus Immunization: Unknown - Past Social History Smoking Status: Never Smoked - CARDIAC Hx Cardiac Disorders: Yes (CAD, Stents x2) Hx Hypercholesterolemia: Yes Hx Hypertension: Yes - PULMONARY Hx Respiratory Disorders: No - NEUROLOGICAL Hx Neurological Disorder: No - HEENT Hx Cataracts: Yes (b/l sx) - RENAL Hx Kidney Stones: No - ENDOCRINE/METABOLIC Hx Hypothyroidism: Yes - HEMATOLOGICAL/ONCOLOGICAL Other/Comment: vitamin d deficiency - INTEGUMENTARY Other/Comment: ble skin discoloration, llq abd ddressings x2 dry and intact over i&d site - MUSCULOSKELETAL/RHEUMATOLOGICAL Hx Musculoskeletal Disorders: Yes Hx Arthritis: Yes (spine) Hx Falls: No Hx Unsteady Gait: Yes - GASTROINTESTINAL Hx Gastrointestinal Disorders: Yes (hiatal hernia, gi bleed) - GENITOURINARY/GYNECOLOGICAL Hx Genitourinary Disorders: No - PSYCHIATRIC Hx Psychophysiologic Disorder: No Hx Substance Use: No - SURGICAL HISTORY Hx Coronary Stent: Yes (x2) Other/Comment: left inguinal hernia sx with mesh, abcess removed and I&d 11/18/16 infected mesh removed, Left inguinal fistula - ANESTHESIA Hx Anesthesia Reactions: No Hx Malignant Hyperthermia: No Meds Allergies/Adverse Reactions: Allergies Allergy/AdvReac Type Severity Reaction Status Date / Time No Known Allergies Allergy Verified 11/22/16 06:36 - Medications Medications: Current Medications Amlodipine Besylate (Norvasc) 10 mg PO DAILY [facility] Last Admin: 12/01/16 10:51 Dose: 10 mg Aspirin (Ecotrin) 81 mg PO DAILY [facility] Last Admin: 12/01/16 10:51 Dose: 81 mg Atorvastatin Calcium (Lipitor) 20 mg PO DIN [facility] Last Admin: 11/30/16 18:22 Dose: 20 mg Ergocalciferol (Drisdol 50,000 Intl Units Cap) 1 cap PO Q7D [facility] Erythromycin (Erythromycin) 250 mg PO Q6 [facility] PRN Reason: Protocol Last Admin: 12/01/16 12:12 Dose: 250 mg Famotidine (Pepcid) 20 mg PO HS [facility] Last Admin: 11/30/16 22:01 Dose: 20 mg Vancomycin HCl (Vancomycin 1gm) 1 gm in 250 mls @ 167 mls/hr IVPB Q12H [facility] PRN Reason: Protocol Last Admin: 12/01/16 10:51 Dose: 167 mls/hr Piperacillin Sod/Tazobactam Sod (Zosyn 3.375 In Ns 100ml) 100 mls @ 200 mls/hr IVPB Q6 [facility] PRN Reason: Protocol Stop: 12/08/16 12:01 Last Admin: 12/01/16 12:12 Dose: 200 mls/hr Levothyroxine Sodium (Synthroid) 25 mcg PO 0600 [facility] Last Admin: 12/01/16 05:26 Dose: 25 mcg Lisinopril (Zestril) 10 mg PO DAILY [facility] Last Admin: 12/01/16 10:51 Dose: 10 mg Multivitamins/Minerals (Therapeutic-M Tab) 1 tab PO 1000 [facility] Last Admin: 12/01/16 10:51 Dose: 1 tab Neomycin Sulfate (Neomycin Tab) 500 mg PO Q6 [facility] Last Admin: 12/01/16 12:12 Dose: 500 mg Ondansetron HCl (Zofran Inj) 4 mg IVP Q4H PRN PRN Reason: Nausea/Vomiting Tramadol/Acetaminophen (Ultracet 37.5/325 Mg) 1 tab PO Q6H PRN PRN Reason: Pain, moderate (4-7) Zolpidem Tartrate (Ambien) 5 mg PO HS PRN; Protocol PRN Reason: Insomnia Last Admin: 11/30/16 23:18 Dose: 5 mg Physical Exam - Constitutional Appears: Non-toxic, No Acute Distress - Head Exam Head Exam: ATRAUMATIC, NORMOCEPHALIC - Eye Exam Eye Exam: EOMI. absent: Scleral icterus - ENT Exam ENT Exam: Mucous Membranes Moist Additional comments: trachea midline - Respiratory Exam Respiratory Exam: NORMAL BREATHING PATTERN. absent: Respiratory Distress - Cardiovascular Exam Cardiovascular Exam: RRR, +S1, +S2 - GI/Abdominal Exam GI & Abdominal Exam: Soft. absent: Distended, Firm, Guarding, Hernia, Rebound, Rigid, Tenderness - Rectal Exam Rectal Exam: Deferred - Extremities Exam Extremities exam: Positive for: normal capillary refill. Negative for: calf tenderness, pedal edema - Back Exam Back exam: absent: CVA tenderness (L), CVA tenderness (R) - Neurological Exam Neurological exam: Alert, Oriented x3 - Psychiatric Exam Psychiatric exam: Normal Affect, Normal Mood - Skin Skin Exam: Dry, Warm - Additional Findings Additional findings: L groin with open incision with odor and purulent fluid draining. 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 Bruce Solano PGY3
--- NOTE | 2016-12-01 16:27 | CON ---
DATE: 12/01/2016 The patient has an infected mesh in the left lower quadrant, probably connected to the colon in the f nicole of severe diverticulosis. Dr. Smith had done an I and D and there is persistent drainage drainage. The plan is tomorrow to remove whatever mesh repair of the left lower quadrant in a primar y manner without mesh and probably do a resection of the sigmoid with or without a colostomy. We dis cussed this with him and the consent will include that for sure. Presently, he is not septic. His b lood pressure is a little bit high. He is on a bowel prep. MEDICATIONS: He is on multiple medications including , calcium, aspirin, Erythromycin, Lipitor, Norvasc, and Pepcid. LABORATORY STUDIES: His white count is 8, hemoglobin 11.9, platelet count normal 480. Coags 11.2 an d 29.2. These are from 2 weeks ago. I will have them repeated. Sodium a little bit low. BUN 24, g lucose 239, albumin 3.3. The patient is being followed by from infectious disease. CAT scan d one several days ago. CAT scan probably shows a fistula, there was rectal bleeding done about a year ago, just showed diverticulosis. PLAN: We will plan laparotomy tomorrow. Denny Barrera MD cc: [id number] TT: 12/01/2016 16:26:09 Confirmation # [id number] Dictation # [id number] claudia
--- NOTE | 2016-12-01 16:33 | HP ---
CHIEF COMPLAINT: Left lower quadrant abdominal pain. HISTORY OF PRESENT ILLNESS: The patient is a 81-year-old male with past medical history of multiple medical problems, coronary artery disease, cardiac stents, hypertension, dyslipidemia, COPD, chronic back pain, arthritis, history of diverticulosis, came in [facility] with left lower quadrant abdominal pain and patient was having abscess incision and drainage done and patient was improving, transferred to TCU. In the TCU, patient has a constant pain in the left lower quadrant and abscess was constantly draining. The patient has history of left inguinal hernia. Maybe has colocutaneous fistula from descending colon associated with infected inguinal mesh. Now plan is to remove the mesh by the surgeon. The patient is drinking GoLYTELY. Tolerating GoLYTELY very well. Yesterday had blood in the stool also. Is under surgical care also. A length of time discussion done with Dr. Rodriguez and requesting to start some parenteral nutrition. PAST MEDICAL HISTORY: As above. Coronary artery disease, hypertension, dyslipidemia, COPD, chronic back pain, arthritis, history of diverticulosis, history of cataract surgery, hypothyroidism, vitamin D deficiency. ALLERGIES: The patient is not allergic to any medication. HABITS: No smoking, no drugs, no ethanol. MEDICATIONS: Norvasc, Lipitor, Pepcid, vancomycin, Synthroid, Zofran, tramadol , Ambien. PHYSICAL EXAMINATION: VITAL SIGNS: Temperature 99.4, pulse 75, blood pressure 123/72, respiratory rate 18. HEENT: Head normocephalic, atraumatic. Eyes, PERRLA. Extraocular muscles intact. Conjunctivae are clear. Nose patent. Mucous membranes moist. NECK: Supple. No carotid bruit, JVD or thyromegaly. CHEST: Bilaterally symmetrical. HEART: S1, S2 positive. LUNGS: Clear to auscultation. ABDOMEN: Soft. Bowel sounds present. No organomegaly. EXTREMITIES: No edema, no cyanosis. NEUROLOGIC: The patient is awake, alert, moving all 4 extremities. No focal deficits. LABORATORY DATA: We do not have recent labs today. I reviewed old labs. MEDICATIONS: Reviewed by me. 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 PLAN: Continue Zosyn. Awaiting for OR for colectomy on 12/02. Reviewed CAT scan of the abdomen and pelvis. Reviewed Dr. Duarte's ID notes and Dr. Denny Barrera's surgical notes. The patient is getting constantly pain medication and was drinking GoLYTELY, getting ready for surgery for tomorrow. Hannah Ramirez MD cc: [id number] TT: 12/01/2016 16:32:26 chris SANABRIA
--- NOTE | 2016-12-01 17:40 | CON ---
DATE: 12/01/2016 REASON FOR CONSULTATION: Preoperative evaluation. 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 The patient denies an y chest pain at this time. SOCIAL HISTORY: The patient is a former smoker. MEDICATIONS: Ambien 5 mg at bedtime, aspirin 81 mg once a day, azithromycin 250 mg p.o. q. 6 hours, Lipitor 20 mg once a day, neomycin 500 mg p.o. q. 6 hours, Norvasc 10 mg once a day, Pepcid 20 mg p.o . once a day, Synthroid 25 mcg once a day, multivitamin 1 tablet once a day, Ultracet 1 tablet q. 6 hours, vancomycin 1 gram intravenously q. 12 hours, Zestril 10 mg once a day, Zosyn 3.375 grams intra venously q. 6 hours. REVIEW OF SYSTEMS: No nausea or vomiting. The patient has a low-grade fever, no retrosternal chest pains. PHYSICAL EXAMINATION: GENERAL: The patient is an elderly male who does not appear to be in any distress. VITAL SIGNS: Blood pressure 126/73, heart rate 75, temperature 99.4, respirations 18. HEENT: Normocephalic. NECK: No JVD. CHEST: Diminished breath sounds over the bases. HEART: S1, S2 regular. EXTREMITIES: Significant muscle wasting. LABORATORY DATA: 2 days ago hemoglobin and hematocrit were 11.9 and 33.5, white count 8.2, platelet count 482,000. SMA-7: Sodium on 11/26 129, 38, potassium 4.3, chloride 93, CO2 29, glucose 23 9, BUN 24, creatinine 0.9. TSH level was 5.08 on 11/20. EKG revealed sinus rhythm with APCs at a ra te of 90. ASSESSMENT: 1. Colocutaneous fistula. 2. History of coronary artery disease. 3. Hyponatremia. 4. Uncontrolled diabetes mellitus. 5. Hypertension. RECOMMENDATIONS: Continue current IV vancomycin and IV Zosyn. Continue oral erythromycin and oral n eomycin. Obtain BMP, CBC, PT, PTT as well as an echocardiogram. Fransisco Gale MD cc: [id number] TT: 12/01/2016 17:40:14 Confirmation # [id number] Dictation # [id number] mn
--- NOTE | 2016-12-01 22:38 | CON ---
DATE: 12/01/2016 REFERRING PHYSICIAN: Dr. Ramirez. REASON FOR CONSULT: The patient may have sleep apnea syndrome, schedule for . HISTORY OF PRESENT ILLNESS: This is a 81-year-old gentleman with past medical history significant fo r hernia repair in the left inguinal area admitted with left inguinal abscess and had I and D of the abscess, Gram stain was positive for bacteria, history of coronary artery disease, history of coronar y stent in the past, hypertension, chronic lung disease, hypothyroid insufficiency, who was jennifer ginally admitted to the by ENT, but still not healing, still having pain and discomfort, low-gr jenna fever, requiring antibiotics presently. Readmitted to the acute side of the hospital for possibl e laparotomy, I and D, removal of mesh in a section of the intestine. ALLERGIES: None known. SOCIAL HISTORY: Nonsmoker, nondrinker. FAMILY HISTORY: No significant cardiopulmonary disease reported. MEDICATIONS: He is on Ambien 5 mg at bedtime p.r.n., Vitamin D 50,000 weekly, Ecotrin 81 mg daily, e rythromycin 250 mg q. 6 hours, Lipitor 20 mg daily, neomycin 500 mg q. 6 hours, Norvasc 10 mg daily, Pepcid 20 mg at bedtime, Synthroid 25 mg daily, multivitamins daily, Ultracet 37.5/325 one tab q. 6 h ours p.r.n., vancomycin 1 gram IV q. 12 hours, Zestril 10 mg daily, Zofran on a p.r.n. basis, Zosyn 3 .375 grams q. 6 hours. IMPRESSION AND PLAN: Left inguinal abscess requiring I and D with infected mesh from previous surger y which was hernia repair, coronary artery disease, may have sleep apnea syndrome, hyperlipidemia. I spoke to patient's family at bedside and answered all of their questions. From a pulmonary point of view he is stable. If sedated, needs close cardiopulmonary monitoring, sleep apnea precaution. Wendy staples followed by cardiology. Thank you and will follow with you. Dakotah Farrar MD cc: [id number] TT: 12/01/2016 22:38:28 Confirmation # [id number] Dictation # [id number] mn
[2016-12-02] MEDS: Piperacillin/Tazobact 3.375 gm 100 ML IVPB SCH ×3 (05:02→17:22)
[2016-12-02] MEDS: Levothyroxine 25 MCG TAB PO SCH (05:09)
[2016-12-02 07:51] LABS: ADD MANUAL DIFF? NO
[2016-12-02 07:59] LABS: BASO # 0.05 K/mm3 (0.0-2.0); BASO % 0.8 % (0.0-3.0); EOS # 0.3 (0.0-0.7); GRAN # 3.63 (1.4-6.5); GRAN % 56.5 % (50.0-68.0); HEMATOCRIT 32.5 % (42.0-52.0); LYMPH # 1.8 (1.2-3.4); LYMPH % 28.6 % (22.0-35.0); MEAN CORPUSCULAR HEMOGLOBIN 30.7 pg (25.0-35.0); MEAN CORPUSCULAR HGB CONC 34.5 g/dl (31.0-37.0); MEAN PLATELET VOLUME 8.9 fl (7.0-11.0); MONO # 0.7 (0.1-0.6); MONO % 10.1 % (1.0-6.0); PLATELET COUNT 564 10^3/uL (120.0-450.0); RED CELL DISTRIBUTION WIDTH 13.2 % (11.5-14.5); WHITE BLOOD COUNT 6.4 10^3/ul (4.5-11.0)
[2016-12-02 08:03] LABS: ALKALINE PHOSPHATASE 54 U/L (38-133); ALT/SGPT 59 U/L (7-56); AST/SGOT 45 U/L (15-59); BILIRUBIN,TOTAL 0.4 mg/dL (0.2-1.3); BLOOD UREA NITROGEN 7 mg/dL (7-21); CALCIUM 7.7 mg/dL (8.4-10.5); CARBON DIOXIDE 24 mmol/L (21-33); CHLORIDE 101 mmol/L (95-110); GFR AFRICAN-AMERICAN > 60; GLUCOSE,RANDOM 105 mg/dL (70-110); SODIUM 135 mmol/L (132-148); TOTAL PROTEIN 5.8 g/dL (5.8-8.3)
[2016-12-02 08:06] LABS: INR 1.18 (0.93-1.08); PARTIAL THROMBOPLASTIN TIME 27.1 Seconds (23.7-30.8)
[2016-12-02] MEDS: Multivitamin With Minerals Tab PO SCH (09:00)
[2016-12-02] MEDS: Vancomycin 1gm in NS 250ml 1 GM/250 ML BAG IVPB SCH ×2 (09:00→21:57)
--- NOTE | 2016-12-02 09:51 | PQF SEPSIS ---
This form is a permanent part of the medical record Dr. Duarte, Patient transferred from TCU where he was being treated for sepsis from infected inguinal mesh. You note in your consult that patient has sepsis although you also note there is no fever, chills, no wbc and area is improving. He had been on antibiotics for several days. Surgery notes that patient is not septic at this time (no fever, no tachycardia , no elevated wbc or left shift). Could you clarify if sepsis is also present on this acute admission (or was that from when patient in TCU). Clarification of your documentation is requested to better reflect the severity of illness and intensity of treatment of your patient. Indicators present [] Temp < 96.8 or > 100.4 [] WBC count > 12,000/mm3 or <000/mm3 or 10% immature neutrophils [] Heart Rate > 90 [] Respiratory Rate > 20 [] Fever or hypothermia [] Chills [] Positive blood cultures [] Hypotension [] Metabolic acidosis (Elevated lactate level, anion gap or reduced blood pH) [] Acute confusion /Altered Mental Status [] Shock [] Other: [] Location in the medical record that reflects the above clinical findings: [] Treatment Provided: [] PHYSICIAN'S RESPONSE Based on your medical judgment of the clinical indicators outlined above, are you treating this patient for a known or suspected: [] Sepsis / Septicemia Please specify organism if known [] [] SIRS (Systemic Inflammatory Response Syndrome) [] Severe Sepsis (Sepsis with Associated Organ Dysfunction) [] Fever of Unknown Origin [] Other, please indicate: [] [] If Unable to Determine, please check the box, sign and date. Present On Admission (POA) Indicator: [] Present at the time of admission [x] Not present at the time of admission [] Clinically Undetermined In responding to this query, please exercise your independent professional judgment. The fact that a question is asked does not imply that any particular answer is desired or expected. Thank you for your clarification on this documentation. If you have any questions please call:[ ] * Thank you, [ ]Teresa Lopez [facility] #[id number] winder hand ELLY
[2016-12-02] MEDS ORDERED: Propofol 10 mg/ml Inj (20 ML) ONE (11:29)
[2016-12-02] MEDS ORDERED: Succinylcholine 200 mg/10 ml Inj IV ONE (11:31)
[2016-12-02] MEDS ORDERED: Bupivacaine 0.5% Inj(30mL) ONE (12:32)
[2016-12-02] MEDS ORDERED: Neostigmine Methylsulfate 3mg/3ml Syringe IV ONE (13:40)
[2016-12-02] MEDS ORDERED: Morphine 4 mg/ml ISec ONE ×2 (13:42→13:59)
[2016-12-02] MEDS ORDERED: Esmolol 100 mg/10ml Inj IV ONE (14:00)
--- NOTE | 2016-12-02 14:26 | PN ---
DATE: 12/02/2016 TYPE OF DICTATION: Preop evaluation and risk stratification for left colocutaneous fistula repair. BRIEF CLINICAL HISTORY: This is a 81-year-old male from [place], history of coronary artery disease , hypertension, hyperlipidemia, COPD, history of diverticular colonic disease who had recently incisi on and drainage of left inguinal hernia, abscess of left inguinal possibly related to colocutan eous fistula and now is going today for removal of the mesh and repair. The patient denies any chest pain, shortness of breath, any palpitation. Removal of the mesh and repair. The patient denies any chest pain, but complaining of pain in inguinal region and drainage. PHYSICAL EXAMINATION: VITAL SIGNS: Temperature afebrile, heart rate 80, blood pressure 110/68. HEENT: PERRLA. Extraocular muscles intact. NECK: Supple. No carotid bruits. No thyromegaly. CHEST: Clear to auscultation. HEART: S1, S2 regular. ABDOMEN: Soft. EXTREMITIES: Clubbing, cyanosis negative. BLOOD WORKUP: WBC 6.4, hemoglobin 11. , hematocrit 32.5, platelet count 564. Chemistry shows so dium 135, potassium 3, chloride , carbon dioxide 24, anion gap of 13, BUN 7, creatinine 1.0. IMPRESSION: Hypokalemia, protein-calorie malnutrition, 2.9, anemia, colocutaneous fistula, history o f inguinal hernia, history of drainage of inguinal abscess. RECOMMENDATION: The patient is cleared from cardiology point of view as a moderate risk. Continue _ ____ supplement potassium. We will follow postop. Continue antibiotic. Thank you, Dr. Ramirez, for providing us the opportunity in taking care of the patient. We will follo w with you. Repeat the blood workup in the morning. Dakotah Chicas MD cc:Hannah Ramirez MD [id number] TT: 12/02/2016 14:25:28 Confirmation # [id number] Dictation # [id number]
[2016-12-02] MEDS ORDERED: Lactated Ringer's 1,000 ML IV SCH ×2 (14:27→14:28)
[2016-12-02] MEDS ORDERED: HYDROmorphone 0.5 mg/0.5 ml ISec IVP PRN (14:28)
--- NOTE | 2016-12-02 14:35 | PCM.SURG1 ---
Surgeon's Initial Post Op Note - Surgeon's Notes Surgeon: Dr. Barrera Clinical Scientist: Dr. 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 On-Q pain pump placement Specimen/Specimens Removed: mesh plug, sigmoid colon segment Estimated Blood Loss: EBL {In ML}: 15 Blood Products Given: N/A Drains Used: Clark Post-Op Condition: Good Date of Surgery/Procedure: 12/02/16 Time of Surgery/Procedure: 14:34
[2016-12-02] MEDS ORDERED: HYDROmorphone 0.5 mg/0.5 ml ISec ONE (14:37)
--- NOTE | 2016-12-02 19:45 | PN ---
DATE: 12/02/2016 REFERRING PHYSICIAN: Dr. Ramirez. SUBJECTIVE: He is lying in the bed, sleepy on pain medication, status post laparotomy and exploratio n of left inguinal abscess and removal of mesh. Denies any cough. No chest pain. No nausea. No le g pain or leg swelling. OBJECTIVE: GENERAL: No acute distress. VITAL SIGNS: Temperature is 98, heart is 80, respiratory rate is 18, blood pressure 144/71, pulse ox 98% on 3 liter nasal cannula. HEENT: Moist mucous membranes. Small oral cavity. Crowded airway. NECK: Supple. No JVD. LUNGS: Has a fair airflow with rhonchi. HEART: S1, S2. ABDOMEN: Midline surgical scar has a dressing, left inguinal area has a wound VAC. EXTREMITIES: There is no edema. NEUROLOGIC: Sleepy, arousable, follows simple commands. MEDICATIONS: He is on Ambien 5 mg at bedtime p.r.n., Dilaudid 0.5 mg IV q. 4 hours p.r.n., vitamin D 50,000 units q. 7 days, Ecotrin 81 mg daily, lactate ringer 100 mL per hour, Lipitor 20 mg daily, Lo venox 40 mg subQ daily, Norvasc 10 mg daily, Pepcid 20 mg daily, Synthroid 25 mg daily, multivitamin daily, Ultracet 37.5/325 one tab q. 6 hours p.r.n., vancomycin 1 g IV q. 12 hours, Zestril 10 mg carol y, Zofran 4 mg IV q. 4 hours p.r.n., Zofran p.r.n., Zosyn 3.375 g IV q. 6 hours. LABORATORY DATA: Shows hemoglobin 11.2, hematocrit 32.5, WBC 6.4, platelet is 564. INR 1.18, PTT is 27. Sodium 13____, potassium 3.0, chloride 101, bicarbonate 24, BUN 17, creatinine 1.0, calcium 7.7 , total bilirubin 0.4, AST 45, ALT 59, and alkaline phosphatase is 54, albumin 2.9. IMPRESSION AND PLAN: Left inguinal abscess requiring incision and drainage, ended up now getting lap arotomy with sigmoid resection and anastomosis. Also mesh for old hernia repair is removed. Has a w ound VAC on left inguinal area. Other issues are coronary artery disease, may have sleep apnea syndr ome, hyperlipidemia. Pulmonary point of view doing okay, keep head elevated at 45 degree. Gastric p rophylaxis. DVT prophylaxis. Aspiration precaution. Sleep apnea precaution. Follow up labs in the morning. Thank you and will follow with you. Dakotah Farrar MD cc: [id number] TT: 12/02/2016 19:45:12 Confirmation # [id number] Dictation # [id number] jn
[2016-12-02] MEDS: HYDROmorphone 0.5 mg/0.5 ml ISec IVP PRN (20:30)
[2016-12-03] MEDS: Piperacillin/Tazobact 3.375 gm 100 ML IVPB SCH ×5 (00:23→23:21)
[2016-12-03 07:16] LABS: ADD MANUAL DIFF? NO
[2016-12-03 07:35] LABS: ALB/GLOB RATIO 0.9 (1.1-1.8); ALKALINE PHOSPHATASE 50 U/L (38-133); ALT/SGPT 45 U/L (7-56); AST/SGOT 33 U/L (15-59); BILIRUBIN,TOTAL 0.5 mg/dL (0.2-1.3); BLOOD UREA NITROGEN 9 mg/dL (7-21); CALCIUM 7.9 mg/dL (8.4-10.5); CARBON DIOXIDE 25 mmol/L (21-33); CHLORIDE 100 mmol/L (98-107); GFR AFRICAN-AMERICAN > 60; GLUCOSE,RANDOM 137 mg/dL (70-110); MAGNESIUM 1.6 mg/dL (1.7-2.2); PHOSPHOROUS 3.1 mg/dL (2.5-4.5); POTASSIUM 3.6 mmol/L (3.6-5.0); SODIUM 132 mmol/L (132-148); TOTAL PROTEIN 5.6 g/dL (5.8-8.3)
[2016-12-03 07:47] LABS: BASO # 0.02 K/mm3 (0.0-2.0); BASO % 0.1 % (0.0-3.0); GRAN # 13.01 (1.4-6.5); GRAN % 87.9 % (50.0-68.0); HEMATOCRIT 34.2 % (42.0-52.0); LYMPH # 1.2 (1.2-3.4); MEAN CELL VOLUME 89.8 fL (80.0-105.0); MEAN CORPUSCULAR HEMOGLOBIN 31.5 pg (25.0-35.0); MEAN CORPUSCULAR HGB CONC 35.1 g/dl (31.0-37.0); MEAN PLATELET VOLUME 8.6 fl (7.0-11.0); MONO # 0.6 (0.1-0.6); PLATELET COUNT 593 10^3/uL (120.0-450.0); RED CELL DISTRIBUTION WIDTH 13.5 % (11.5-14.5); WHITE BLOOD COUNT 14.8 10^3/ul (4.5-11.0)
--- NOTE | 2016-12-03 07:51 | PN ---
DATE: 12/02/2016 SUBJECTIVE: The patient was seen and examined early in the morning before he had to go for surgery, still having pain in the left lower quadrant with drainage. I met all of his 3 sisters. No cough. No shortness of breath, nausea, vomiting, diarrhea. No hematuria or hematochezia. No swelling of the leg. No chest pain, no palpitation, no fever, no chills. PHYSICAL EXAMINATION: VITAL SIGNS: Temperature 98, heart rate 80, respiratory 18, blood pressure 140/ 70, pulse oxygenation 98% on 3 L nasal cannula. HEENT: Head normocephalic, atraumatic. Eyes: PERRLA. Extraocular muscles intact. Conjunctivae clear. Nose patent. Mucous membranes moist. NECK: Supple. No carotid bruit, JVD or thyromegaly. CHEST: Bilaterally symmetrical. HEART: S1, S2 positive. LUNGS: Clear to auscultation. ABDOMEN: Soft. Soft. Bowel sounds positive. Tender in the left lower quadrant. EXTREMITIES: No edema, no cyanosis. NEUROLOGIC: The patient is awake, alert, moving all 4 extremities. No focal deficits. MEDICATIONS: Ambien, Dilaudid, vitamin D, Ecotrin, lactated Ringer, Lipitor, Lovenox, Norvasc, Pepcid, Synthroid, multivitamins, Ultracet, vancomycin, Zestril, Zofran, and Zosyn. LABORATORY DATA: Hemoglobin 11.2, hematocrit 32.5, white blood cell 6.4, platelets 564. Potassium 3.0, BUN 17, creatinine 1.0, calcium 7.7. Liver function tests within normal limits. ASSESSMENT AND PLAN: The patient is a 81-year-old male. The patient has left groin abscess requiring incision and drainage many weeks ago, ended up now getting laparotomy with sigmoid resection and anastomosis. Also, mesh for the old hernia repair was removed by the surgeon, has wound VAC on the left inguinal area. The patient has history of coronary artery disease. The patient has sleep apnea syndrome. Gastrointestinal and deep venous thrombosis prophylaxis. We will follow up. Appreciated the surgeon's input. Discussion done with the patient's nursing staff and the patient's daughters. We will follow up. Hannah Ramirez MD cc: [id number] TT: 12/03/2016 07:51:16 Confirmation # [id number] Dictation # [id number] tn MTDD
[2016-12-03] MEDS: HYDROmorphone 0.5 mg/0.5 ml ISec IVP PRN ×3 (08:00→23:25)
--- NOTE | 2016-12-03 08:00 | CP.PCM.PN ---
Subjective - Date & Time of Evaluation Date of Evaluation: 12/03/16 Time of Evaluation: 07:57 - Subjective Subjective: Surgery: Dr. Barrera Patient complains of moderate pain in the abdomen. He reports passing flatus. He denies n/v/f/c. He states he tolerated drinking water last night but has not had any other liquids. Objective - Vital Signs/Intake and Output Vital Signs (last 24 hours): Temp Pulse Resp BP Pulse Ox 98.4 F 84 18 149/77 100 12/03/16 07:38 12/03/16 07:38 12/03/16 07:38 12/03/16 07:38 12/03/16 07:38 Intake and Output: 12/03/16 12/03/16 06:59 18:59 Intake Total 120 Output Total 600 Balance -480 - Medications Medications: Current Medications Amlodipine Besylate (Norvasc) 10 mg PO DAILY [facility] Last Admin: 12/02/16 08:59 Dose: Not Given Aspirin (Ecotrin) 81 mg PO DAILY [facility] Last Admin: 12/02/16 08:59 Dose: Not Given Atorvastatin Calcium (Lipitor) 20 mg PO DIN [facility] Last Admin: 12/01/16 18:31 Dose: 20 mg Enoxaparin Sodium (Lovenox) 40 mg SC DAILY [facility] PRN Reason: Protocol Ergocalciferol (Drisdol 50,000 Intl Units Cap) 1 cap PO Q7D [facility] Famotidine (Pepcid) 20 mg IVP DAILY [facility] Hydromorphone HCl (Dilaudid) 0.5 mg IVP Q4H PRN PRN Reason: Pain, moderate (4-7) Last Admin: 12/02/16 20:30 Dose: 0.5 mg Vancomycin HCl (Vancomycin 1gm) 1 gm in 250 mls @ 167 mls/hr IVPB Q12H ZACK PRN Reason: Protocol Last Admin: 12/02/16 21:57 Dose: 167 mls/hr Piperacillin Sod/Tazobactam Sod (Zosyn 3.375 In Ns 100ml) 100 mls @ 200 mls/hr IVPB Q6 ZACK PRN Reason: Protocol Stop: 12/08/16 12:01 Last Admin: 12/03/16 05:31 Dose: 200 mls/hr Lactated Ringer's (Lactated Ringer's) 1,000 mls @ 100 mls/hr IV .Q10H [facility] Last Admin: 12/02/16 17:22 Dose: 100 mls/hr Levothyroxine Sodium (Synthroid) 25 mcg PO 0600 [facility] Last Admin: 12/02/16 05:09 Dose: Not Given Lisinopril (Zestril) 10 mg PO DAILY [facility] Last Admin: 12/02/16 09:00 Dose: Not Given Multivitamins/Minerals (Therapeutic-M Tab) 1 tab PO 1000 [facility] Last Admin: 12/02/16 09:00 Dose: Not Given Ondansetron HCl (Zofran Inj) 4 mg IVP Q4H PRN PRN Reason: Nausea/Vomiting Ondansetron HCl (Zofran Inj) 4 mg IVP ONCE PRN PRN Reason: Nausea/Vomiting Tramadol/Acetaminophen (Ultracet 37.5/325 Mg) 1 tab PO Q6H PRN PRN Reason: Pain, moderate (4-7) Zolpidem Tartrate (Ambien) 5 mg PO HS PRN; Protocol PRN Reason: Insomnia Last Admin: 12/03/16 00:26 Dose: 5 mg - Labs Labs: 12/02/16 07:00 12/03/16 07:00 PT 12.7 Seconds (9.9-11.8) H 12/02/16 07:00 INR 1.18 (0.93-1.08) H 12/02/16 07:00 APTT 27.1 Seconds (23.7-30.8) 12/02/16 07:00 - Constitutional Appears: No Acute Distress, Chronically Ill - Head Exam Head Exam: ATRAUMATIC, NORMOCEPHALIC - Eye Exam Eye Exam: EOMI - ENT Exam ENT Exam: Mucous Membranes Dry - Respiratory Exam Respiratory Exam: NORMAL BREATHING PATTERN. absent: Respiratory Distress - Cardiovascular Exam Cardiovascular Exam: REGULAR RHYTHM. absent: Tachycardia - GI/Abdominal Exam GI & Abdominal Exam: Soft, Tenderness (appropriate nel-incisional pain w/ palpation. Overlying midline dressing CDI. Clark drain in RLQ w/ SA fluid output. OnQ in place infusing at 6cc/hr. Wound Vac in LLQ with good seal. ) - Exam Additional comments: torres catheter in place w/ 1050cc/12hr clear yellow urine in bag. - Neurological Exam Neurological Exam: Alert, Awake - Psychiatric Exam Psychiatric exam: Normal Affect, Normal Mood - Skin Skin Exam: Dry, Normal Color, Warm Assessment and Plan - Assessment and Plan (Free Text) Assessment: 81 y/o male s/p ex lap w/ sigmoid colon resection and primary anastomosis w/ wound vac placement in LLQ 2/2 infected mesh POD1 Plan: -ok to d/c torres -cont liquid diet until tolerance assessed -patient needs to be OOB today -encourage IS use -f/u am labs -ok for DVT prophylaxis -monitor clark out put -pain control -d/w Dr. Bruce Song PGY1
--- NOTE | 2016-12-03 09:24 | CARD ---
APPROVED REPORT EXAM: Two-dimensional and M-mode echocardiogram with Doppler and color Doppler. INDICATION PRE-OP 2D DIMENSIONS Left Atrium (2D)3.3 (1.6-4.0cm)IVSd1.0 (0.7-1.1cm) LVDd3.4 (3.9-5.9cm)PWd1.0 (0.7-1.1cm) LVDs2.5 (2.5-4.0cm)FS (%) 25.7 % LVEF (%)51.6 (>50%) M-Mode DIMENSIONS Aortic Root3.20 (2.2-3.7cm)Aortic Cusp Exc.1.50 (1.5-2.0cm) Aortic Valve AoV Peak Vhkhlkmt348.0cm/Kyara Peak GR.6mmHg Mitral Valve MV E Khvlkgvp66.9cm/sMV A Qtoegsqt986.0cm/sE/A ratio0.7 TDI E/Lateral E'0.0E/Medial E'0.0 Tricuspid Valve TR Peak [id number]/sRAP [id number] Peak Gr.43mmHg [id number] LEFT VENTRICLE The left ventricle is normal size. There is borderline concentric left ventricular hypertrophy. The left ventricular function is normal. The left ventricular ejection fraction is within the normal range. There is normal LV segmental wall motion. Transmitral Doppler flow pattern is Grade I-abnormal relaxation pattern. RIGHT VENTRICLE The right ventricle is normal size. There is normal right ventricular wall thickness. The right ventricular systolic function is normal. ATRIA The left atrium size is normal. The right atrium size is normal. AORTIC VALVE The aortic valve is mildly sclerotic. There is trace aortic regurgitation. MITRAL VALVE The mitral valve is mildly thickened. There is no mitral valve regurgitation noted. TRICUSPID VALVE There is mild to moderate tricuspid regurgitation. There is moderate pulmonary hypertension. GREAT VESSELS The aortic root is normal in size. The IVC is normal in size and collapses >50% with inspiration. PERICARDIAL EFFUSION There is no pericardial effusion. <Conclusion> The left ventricle is normal size. There is borderline concentric left ventricular hypertrophy. The left ventricular function is normal. The left ventricular ejection fraction is within the normal range. There is normal LV segmental wall motion. Transmitral Doppler flow pattern is Grade I-abnormal relaxation pattern. There is moderate pulmonary hypertension.
[2016-12-03] MEDS: Enoxaparin 40 mg Syringe SC SCH (09:25)
[2016-12-03] MEDS: Multivitamin With Minerals Tab PO SCH (09:25)
[2016-12-03] MEDS: Levothyroxine 25 MCG TAB PO SCH (09:28)
[2016-12-03] MEDS: TraMADol/Apap 37.5/325 mg Tab PO PRN (09:42)
[2016-12-03] MEDS: Vancomycin 1gm in NS 250ml 1 GM/250 ML BAG IVPB SCH ×2 (09:55→21:41)
[2016-12-03] MEDS ORDERED: Magnesium Sulfate 2 GM in Sodium Chloride 0.9% 100 ML IVPB ONE (11:36)
--- NOTE | 2016-12-03 12:41 | PN ---
DATE: 12/03/2016 REASON FOR CONSULTATION AND FOLLOWUP: Preop evaluation, risk stratification, status post followup le sid colocutaneous fistula repair, exploratory laparotomy. BRIEF CLINICAL HISTORY: This is a 81-year-old male from [place] with history of coronary artery dis ease, hypertension, hyperlipidemia, COPD, history of diverticular colonic disease, history of inguina l hernia in the past, history of mesh, who recently had inguinal abscess and drainage was done, but p ossibly developed colocutaneous fistula. Yesterday underwent exploratory laparotomy and repair of co locutaneous fistula. Denies any chest pain. Complained of pain at the operative site. The patient is n.p.o. Denies any chest pain, shortness of breath, any palpitation. PHYSICAL EXAMINATION: VITAL SIGNS: Temperature afebrile, heart rate 84, blood pressure 149/77. HEENT: PERRLA. Extraocular muscles intact. NECK: Supple. No carotid bruits. No thyromegaly. CHEST: Clear to auscultation. HEART: S1, S2 regular. ABDOMEN: Soft. EXTREMITIES: Clubbing and cyanosis negative. BLOOD WORKUP: As follows: WBC 14.8, hemoglobin 12, hematocrit 34.2, platelet count 593. Chemistry shows sodium 132, potassium 3.____, chloride 100, carbon dioxide 25, anion gap of 11, BUN 9, creatini ne 1.0, random sugar 139, calcium 7.1, phosphorus 3.1, magnesium 1.6. Total protein is ____, albumin 2.7, albumin/globulin ratio 0.9. IMPRESSION: Infected inguinal hernia mesh, status post exploratory laparotomy, status post removal o f hernia mesh and repair, resection of the colon, exploratory laparotomy, lysis of adhesion; infected mesh, left groin; history of coronary artery disease, history of a stent in the past, in the remote, no history of evidence of ischemia; hypokalemia, hypomagnesemia, multiple electrolyte imbalances. The patient had echocardiography done yesterday as preoperative that showed borderline concentric lef t ventricular hypertrophy, normal left ventricular function, left ventricular ejection fraction is wi thin normal limits, normal left ventricular wall motion, moderate pulmonary hypertension, right ventr icular systolic pressure reported as 43, ejection fraction calculated at 51%, no mitral regurgitation , mild to moderate tricuspid regurgitation noted. RECOMMENDATION: Since the patient is n.p.o., we will change clonidine patch for blood pressure contr ol and put p.r.n. hydralazine IV. Will follow with you. Thank you, Dr. Ramirez, for providing this opportunity in taking care of this patient. Will follow wi th you. Will supplement magnesium and follow up potassium as needed. Dakotah Chicas MD cc: [id number] TT: 12/03/2016 12:41:00 Confirmation # [id number] Dictation # [id number] mn
--- NOTE | 2016-12-03 15:35 | OP ---
PROCEDURE DATE: 12/03/2016 PREOPERATIVE DIAGNOSIS: Fistula in the left lower quadrant at the site of herniorrhaphy. 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 OPERATION PERFORMED: Exploration of the left groin, followed by laparotomy, sigmoid resection and re moval of a foreign body. DESCRIPTION OF PROCEDURE: In the operating room, the patient was identified by name, number, procedu re, laterality, my luly, the consent, and his wrist band. The abdomen was prepped and draped. The p atient was prepped with a Ioban ____ lithotomy and a Douglas. The Douglas had be replaced as there was i ntraoperative urine and a 16 coude was placed. The groin was examined after the successful timeout a nd the prep. I could not feel any mesh through this and there was very little drainage. The anatomy was completely obscured by the inflammation. A lower midline incision was then made through a separ ate incision after the wound was packed with Betadine and the abdomen entered and explored. There wa s nothing else untoward. Colon was grossly unremarkable. There was a dense adherence in the left lo wer quadrant at the site of the herniorrhaphy. Proximally and distally, there were a lot of divertic rolando but not a lot of inflammation and certainly not any swelling in the intestine itself. There was a fair amount of edema in the subcutaneous tissues, though. The sigmoid was identified proximally an d distally. The line of Toldt was taken down laterally and we were able to get around the adhesions. These were then taken down by sharp blunt dissection and an abscess cavity about 10 mL was identifi ed. It was cultured aerobically and anaerobically. This allowed us to separate the abdominal wall f rom the sigmoid. The sigmoid was very inflamed and ratty but no clear perforation or fissure was nicola ntified. This was marked with a silk. Eventually, the decision was made to do a resection. The are a in the left lower quadrant was then examined. The mesh was identified. It came out easily and com pletely, I believe. There was no residual that I know of or could see. The area was then cleaned, d ried. There was no fistula that I could see. Eventually, the area was closed with a PDS. The ingui nal part of the incision was then closed with a Vicryl, but there was very little hernia that I could see. The sigmoid was then closed, taking with a MAXIMILIAN proximally it had to be reapplied as there seem ed to be some ischemia, but going a little bit lower, the bowel was very viable. There was no tensio n. Silks were placed in to bring the 2 ends together. Nips were taken from either end. MAXIMILIAN was run in and fired under direct vision and then closed with a TA-60. The mesenteric defect was approximat ed. The omentum was placed over it. A Clark was placed. The ON-Q was then placed. The incision wa s closed with running #1 PDS above and below and tied in the middle and closed with Vicryl and staple s. The left lower quadrant wound was placed in a wound VAC and patient was taken to recovery room in good condition after the sponge and needle count was declared correct. Denny Barrera MD cc: [id number] TT: 12/03/2016 15:35:23 sn
[2016-12-03 17:23] VITALS: RESP 20
--- NOTE | 2016-12-03 17:33 | CP.PCM.PN ---
Subjective - Date & Time of Evaluation Date of Evaluation: 12/03/16 Time of Evaluation: 10:00 - Subjective Subjective: Comfortable, had surgery yesterday on his colon, no fevers overnight. Objective - Vital Signs/Intake and Output Vital Signs (last 24 hours): Temp Pulse Resp BP Pulse Ox 98.5 F 80 20 110/68 97 12/02/16 07:44 12/02/16 07:44 12/02/16 07:44 12/02/16 07:44 12/02/16 07:44 Intake and Output: 12/02/16 12/02/16 06:59 18:59 Intake Total 900 0 Output Total 450 Balance 450 0 - Medications Medications: Current Medications Amlodipine Besylate (Norvasc) 10 mg PO DAILY [facility] Last Admin: 12/01/16 10:51 Dose: 10 mg Aspirin (Ecotrin) 81 mg PO DAILY [facility] Last Admin: 12/01/16 10:51 Dose: 81 mg Atorvastatin Calcium (Lipitor) 20 mg PO DIN [facility] Last Admin: 12/01/16 18:31 Dose: 20 mg Ergocalciferol (Drisdol 50,000 Intl Units Cap) 1 cap PO Q7D [facility] Erythromycin (Erythromycin) 250 mg PO Q6 [facility] PRN Reason: Protocol Last Admin: 12/02/16 05:10 Dose: Not Given Famotidine (Pepcid) 20 mg PO HS [facility] Last Admin: 12/01/16 21:16 Dose: 20 mg Vancomycin HCl (Vancomycin 1gm) 1 gm in 250 mls @ 167 mls/hr IVPB Q12H [facility] PRN Reason: Protocol Last Admin: 12/01/16 21:16 Dose: 167 mls/hr Piperacillin Sod/Tazobactam Sod (Zosyn 3.375 In Ns 100ml) 100 mls @ 200 mls/hr IVPB Q6 [facility] PRN Reason: Protocol Stop: 12/08/16 12:01 Last Admin: 12/02/16 05:02 Dose: 200 mls/hr Potassium Chloride (Potassium Chloride 20 Meq/100 Ml) 20 meq in 100 mls @ 50 mls/hr IVPB Q2H [facility] Stop: 12/02/16 12:44 Levothyroxine Sodium (Synthroid) 25 mcg PO 0600 [facility] Last Admin: 12/02/16 05:09 Dose: Not Given Lisinopril (Zestril) 10 mg PO DAILY [facility] Last Admin: 12/01/16 10:51 Dose: 10 mg Multivitamins/Minerals (Therapeutic-M Tab) 1 tab PO 1000 [facility] Last Admin: 12/01/16 10:51 Dose: 1 tab Neomycin Sulfate (Neomycin Tab) 500 mg PO Q6 [facility] Last Admin: 12/02/16 05:10 Dose: Not Given Ondansetron HCl (Zofran Inj) 4 mg IVP Q4H PRN PRN Reason: Nausea/Vomiting Tramadol/Acetaminophen (Ultracet 37.5/325 Mg) 1 tab PO Q6H PRN PRN Reason: Pain, moderate (4-7) Zolpidem Tartrate (Ambien) 5 mg PO HS PRN; Protocol PRN Reason: Insomnia Last Admin: 12/01/16 23:00 Dose: 5 mg - Labs Labs: 12/02/16 07:00 12/02/16 05:00 PT 12.7 Seconds (9.9-11.8) H 12/02/16 07:00 INR 1.18 (0.93-1.08) H 12/02/16 07:00 APTT 27.1 Seconds (23.7-30.8) 12/02/16 07:00 - Constitutional Appears: Non-toxic, No Acute Distress - Head Exam Head Exam: NORMAL INSPECTION - ENT Exam ENT Exam: Mucous Membranes Moist - Neck Exam Neck Exam: absent: Lymphadenopathy, Meningismus - Respiratory Exam Respiratory Exam: Decreased Breath Sounds - Cardiovascular Exam Cardiovascular Exam: +S1, +S2 - GI/Abdominal Exam GI & Abdominal Exam: Soft, Tenderness (mild). 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
--- NOTE | 2016-12-03 20:00 | PN ---
DATE: 12/03/2016 REFERRING PHYSICIAN: Dr. Ramirez. SUBJECTIVE: He is on pain medication, sleepy, arousable, night was unremarkable, using incentive spi rometer. No cough, no sputum production. Still has abdominal pain, passed gas, but no bowel movemen t. No leg pain or leg swelling. OBJECTIVE: GENERAL: No acute distress. VITAL SIGNS: Temperature is 98, heart rate is 76, respiratory rate is 20, blood pressure 116/60, pul se ox 94% on 3 liter nasal cannula. HEENT: Moist mucous membrane. Crowded airway. Mallampati score is 4. NECK: Supple. No JVD. LUNGS: Has a fair airflow with few rhonchi. HEART: S1 and S2. ABDOMEN: Positive bowel sounds, soft. Has surgical drainage draining serosanguineous secretion. Al so a wound VAC , wound has a dressing. EXTREMITIES: There is no edema. NEUROLOGIC: Sleepy, arousable. MEDICATIONS: He is on Ambien 5 mg at bedtime p.r.n., Catapres patch q. 7 days, Dilaudid 0.5 mg IV q. 4 hours, vitamin D 50,000 units q. 7 days, Ecotrin 81 mg daily, 100 mL per hour, Lipitor 20 mg daily, Lovenox 40 mg daily, Norvasc 10 mg daily, Pepcid is at 20 mg daily, Synthroid 25 mcg daily, m ultivitamins, Ultracet 37.5/325 one tab q. 6 hours p.r.n., vancomycin 1 g IV q. 12 hours, Zestril 10 mg daily, Zofran on a p.r.n. basis, Zosyn 3.375 grams q. 6 hours. LABORATORY DATA: Shows hemoglobin 12.0, hematocrit 34.2, WBC 14.8, platelet count is 593. INR 1.18. Sodium 132, potassium 3.6, chloride 100, bicarbonate 25, BUN 9, creatinine 1.0, glucose 137, calciu m 7.9, phosphorus 3.1, magnesium 1.6, AST 33, ALT 45, alkaline phosphatase is , albumin is 2.7. Had an echocardiogram done today, which shows LV , normal size, left ventricular hypertrophy, l eft ventricular ejection fraction within normal limits. There is moderate pulmonary hypertension, PA pressure is 53. IMPRESSION AND PLAN: Left inguinal abscess requiring an incision and drainage and laparotomy with sm all bowel resection and anastomosis, also removal of mesh removal from the previous day inguinal cameron ia repair, has anemia, may have sleep apnea syndrome, coronary artery disease, history of coronary st ent. Pulmonary point of view, doing okay. Keep head elevated at 45 degrees. Sleep apnea precaution . May use CPAP 7 cm if there is any distress. Continue antibiotics. Gastric prophylaxis. Thank yo u and will follow with you. Dakotah Farrar MD cc: [phone] TT: 12/03/2016 19:59:34 Confirmation # [id number] Dictation # [id number] mn
[2016-12-04] MEDS: Piperacillin/Tazobact 3.375 gm 100 ML IVPB SCH ×2 (05:38→12:40)
[2016-12-04] MEDS: HYDROmorphone 0.5 mg/0.5 ml ISec IVP PRN ×2 (05:42→10:45)
[2016-12-04] MEDS ORDERED: Dextrose 5%/0.45% NS 1,000 ML IV SCH (06:15)
[2016-12-04 07:49] LABS: ADD MANUAL DIFF? NO
[2016-12-04] MEDS ORDERED: Potassium Chloride 20 mEq ER Tab PO SCH (08:00)
[2016-12-04 08:01] LABS: BASO # 0.02 K/mm3 (0.0-2.0); BASO % 0.1 % (0.0-3.0); EOS # 0.1 (0.0-0.7); EOS % 0.4 % (1.5-5.0); GRAN % 87.9 % (50.0-68.0); HEMATOCRIT 29.5 % (42.0-52.0); LYMPH % 7.4 % (22.0-35.0); MEAN CELL VOLUME 90.8 fL (80.0-105.0); MEAN CORPUSCULAR HEMOGLOBIN 31.1 pg (25.0-35.0); MEAN CORPUSCULAR HGB CONC 34.2 g/dl (31.0-37.0); MEAN PLATELET VOLUME 8.5 fl (7.0-11.0); MONO # 0.6 (0.1-0.6); MONO % 4.2 % (1.0-6.0); PLATELET COUNT 469 10^3/uL (120.0-450.0); RED CELL DISTRIBUTION WIDTH 13.7 % (11.5-14.5); WHITE BLOOD COUNT 14.1 10^3/ul (4.5-11.0)
--- NOTE | 2016-12-04 08:03 | PN ---
DATE: 12/03/2016 The patient is a 81-year-old male. The patient is seen and examined on the bedside, lying down comfortably, still complaining about pain in the left lower quadrant. Night was unremarkable. Using incentive spirometers. The patient is allowed to have liquid diet, but he is refusing. No bowel movement. No flatus. No swelling of the legs. No chest pain, no palpitation, no fever, no chills. PHYSICAL EXAMINATION: VITAL SIGNS: Temperature 98, heart rate 76, respiratory rate 20, blood pressure 120/80 , pulse oximetry 94% on 3 liters nasal cannula. HEENT: Head normocephalic, atraumatic. Eyes: PERRLA. Extraocular muscles intact. Conjunctivae clear. Nose patent. Mucous membranes moist. NECK: Supple. No carotid bruit, no JVD, no thyromegaly. LUNGS: Has fair airflow with few rhonchi. HEART: S1, S2 positive. ABDOMEN: Soft, bowel sounds positive, has surgical drainage, serosanguineous secretions. Has a dressing on the abdominal wall, wound VAC. EXTREMITIES: No edema, no cyanosis. NEUROLOGIC: The patient is awake, moving all 4 extremities, oriented x 3. MEDICATIONS: Ambien, Catapres, Dilaudid, vitamin D, Ecotrin, Lipitor, Lovenox, Norvasc, Pepcid, Synthroid, multivitamins, Ultracet, vancomycin, Zestril, Zofran , Zosyn. LABORATORIES: Hemoglobin 12.0, hematocrit 34.2, white blood cells 14.8, platelets 593. Sodium 132, potassium 3.6, BUN 9, creatinine 1.0. AST 33, ALT 45. ASSESSMENT AND PLAN: The patient is a 81-year-old male with left inguinal abscess requiring incision and drainage and now had laparotomy with small bowel resection and anastomosis and removal of the mesh from the previous , inguinal hernia repair, has history of anemia, sleep apnea syndrome, hypothyroidism, coronary artery disease with cardiac stenting. The patient is still having pain. Getting pain management. Sleep apnea precautions. May use CPAP 7 cm if there is any distress. Allowed to have liquid food, but does not want to eat because of his pain. Gastrointestinal and deep venous thrombosis prophylaxis. Repeat labs. Will follow up. Hannah Ramirez MD cc: [id number] TT: 12/04/2016 08:02:39 Confirmation # [id number] Dictation # [id number] en MTDD
[2016-12-04 08:25] LABS: ALKALINE PHOSPHATASE 57 U/L (38-133); ALT/SGPT 42 U/L (7-56); AST/SGOT 40 U/L (15-59); BILIRUBIN,TOTAL 0.5 mg/dL (0.2-1.3); BLOOD UREA NITROGEN 10 mg/dL (7-21); CARBON DIOXIDE 28 mmol/L (21-33); CHLORIDE 98 mmol/L (98-107); GFR AFRICAN-AMERICAN > 60; GLUCOSE,RANDOM 120 mg/dL (70-110); POTASSIUM 3.4 mmol/L (3.6-5.0); SODIUM 132 mmol/L (132-148); TOTAL PROTEIN 5.7 g/dL (5.8-8.3)
--- NOTE | 2016-12-04 08:40 | CP.PCM.PN ---
Subjective - Date & Time of Evaluation Date of Evaluation: 12/04/16 Time of Evaluation: 06:45 - Subjective Subjective: Vijay Caro D.O. PGY-1, General Surgery Progress Note 81 year old male s/p ex lap with sigmoid colon resection and primary anastomosis with wound vac placement in LLQ 2/2 infected mesh, now POD#2. Patient was seen and examined at bedside with surgical team. Patient is doing well today, states that he is slowly starting to feel better but sometimes does have some worsening pain over the incision site that gets worse when he coughs. Patient otherwise states that he has no complaints at this time and denies N/V/D /C/fevers/chills or otherwise. Objective - Vital Signs/Intake and Output Vital Signs (last 24 hours): Temp Pulse Resp BP Pulse Ox 98.6 F 76 20 116/60 94 L 12/03/16 16:00 12/03/16 16:00 12/03/16 16:00 12/03/16 16:00 12/03/16 16:00 Intake and Output: 12/04/16 12/04/16 06:59 18:59 Intake Total 300 Output Total 600 Balance -300 - Medications Medications: Current Medications Amlodipine Besylate (Norvasc) 10 mg PO DAILY [facility] Last Admin: 12/03/16 09:25 Dose: 10 mg Aspirin (Ecotrin) 81 mg PO DAILY [facility] Last Admin: 12/03/16 09:25 Dose: 81 mg Atorvastatin Calcium (Lipitor) 20 mg PO DIN [facility] Last Admin: 12/03/16 19:10 Dose: 20 mg Clonidine HCl (Catapres Tts1 0.1 Mg/24 Hr) 1 patch TD Q7D@1000 [facility] Last Admin: 12/03/16 14:33 Dose: 1 patch Enoxaparin Sodium (Lovenox) 40 mg SC DAILY [facility] PRN Reason: Protocol Last Admin: 12/03/16 09:25 Dose: 40 mg Ergocalciferol (Drisdol 50,000 Intl Units Cap) 1 cap PO Q7D [facility] Famotidine (Pepcid) 20 mg IVP DAILY [facility] Last Admin: 12/03/16 09:26 Dose: 20 mg Hydromorphone HCl (Dilaudid) 0.5 mg IVP Q4H PRN PRN Reason: Pain, severe (8-10) Last Admin: 12/04/16 05:42 Dose: 0.5 mg Vancomycin HCl (Vancomycin 1gm) 1 gm in 250 mls @ 167 mls/hr IVPB Q12H [facility] PRN Reason: Protocol Last Admin: 12/03/16 21:41 Dose: 167 mls/hr Piperacillin Sod/Tazobactam Sod (Zosyn 3.375 In Ns 100ml) 100 mls @ 200 mls/hr IVPB Q6 [facility] PRN Reason: Protocol Stop: 12/08/16 12:01 Last Admin: 12/04/16 05:38 Dose: 200 mls/hr Dextrose/Sodium Chloride (Dextrose 5%/0.45% Ns 1000 Ml) 1,000 mls @ 100 mls/hr IV .Q10H [facility] Levothyroxine Sodium (Synthroid) 25 mcg PO 0600 [facility] Last Admin: 12/03/16 09:28 Dose: 25 mcg Lisinopril (Zestril) 10 mg PO DAILY [facility] Last Admin: 12/03/16 09:25 Dose: 10 mg Multivitamins/Minerals (Therapeutic-M Tab) 1 tab PO 1000 [facility] Last Admin: 12/03/16 09:25 Dose: 1 tab Ondansetron HCl (Zofran Inj) 4 mg IVP Q4H PRN PRN Reason: Nausea/Vomiting Ondansetron HCl (Zofran Inj) 4 mg IVP ONCE PRN PRN Reason: Nausea/Vomiting Potassium Chloride (K-Dur 20 Meq Er Tab) 20 meq PO BRK [facility] Tramadol/Acetaminophen (Ultracet 37.5/325 Mg) 1 tab PO Q6H PRN PRN Reason: Pain, moderate (4-7) Last Admin: 12/03/16 09:42 Dose: 1 tab Zolpidem Tartrate (Ambien) 5 mg PO HS PRN; Protocol PRN Reason: Insomnia Last Admin: 12/03/16 00:26 Dose: 5 mg - Labs Labs: 12/04/16 07:00 12/04/16 07:00 PT 12.7 Seconds (9.9-11.8) H 12/02/16 07:00 INR 1.18 (0.93-1.08) H 12/02/16 07:00 APTT 27.1 Seconds (23.7-30.8) 12/02/16 07:00 - Constitutional Appears: No Acute Distress, pleasant elderly male - Head Exam Head Exam: ATRAUMATIC, NORMOCEPHALIC - Eye Exam Eye Exam: EOMI, Normal Appearance - ENT Exam ENT Exam: Mucous Membranes Moist - Respiratory Exam Respiratory Exam: NORMAL BREATHING PATTERN. absent: Respiratory Distress - Cardiovascular Exam Cardiovascular Exam: REGULAR RHYTHM. absent: Tachycardia - GI/Abdominal Exam GI & Abdominal Exam: Soft, mild tenderness over LLQ incision site, OnQ in place @6, minimal drainage from Clark drain, midline dressings C/D/I - Exam Additional comments: torres removed yesterday - Neurological Exam Neurological Exam: Alert, Awake - Psychiatric Exam Psychiatric exam: Normal Affect, Normal Mood - Skin Skin Exam: Dry, Normal Color, Warm Assessment and Plan - Assessment and Plan (Free Text) Assessment: 81 year old male s/p ex lap with sigmoid colon resection and primary anastomosis with wound vac placement in LLQ 2/2 infected mesh, now POD#2. Plan: Tolerating full liquid diet well, will advance to pureed diet and monitor OOB 2 chair with PT yesterday, continue to encourage physical activity Re-enforced IS use Clark output minimal, may remove today Cont OnQ and wound vac Cont current pain regimen Cont DVT ppx Will discuss with attending physician. Thank you for the pleasure of participating in the care of this patient.
[2016-12-04 09:08] VITALS: BP 132/81; PULSE 80; TEMP 97.9; O2SAT 100
[2016-12-04] MEDS: Multivitamin With Minerals Tab PO SCH (10:34)
[2016-12-04] MEDS: Enoxaparin 40 mg Syringe SC SCH (10:35)
[2016-12-04] MEDS: Levothyroxine 25 MCG TAB PO SCH (10:38)
[2016-12-04] MEDS: Vancomycin 1gm in NS 250ml 1 GM/250 ML BAG IVPB SCH (10:38)
--- NOTE | 2016-12-04 11:11 | CP.PCM.PN ---
Subjective - Date & Time of Evaluation Date of Evaluation: 12/04/16 Time of Evaluation: 10:15 - Subjective Subjective: Comfortable in bed but still having pain at the surgical site. No fevers overnight. Starting to tolerate liquid diet. Objective - Vital Signs/Intake and Output Vital Signs (last 24 hours): Temp Pulse Resp BP Pulse Ox 98.6 F 76 20 116/60 94 L 12/03/16 16:00 12/03/16 16:00 12/03/16 16:00 12/03/16 16:00 12/03/16 16:00 Intake and Output: 12/04/16 12/04/16 06:59 18:59 Intake Total 300 Output Total 600 Balance -300 - Medications Medications: Current Medications Amlodipine Besylate (Norvasc) 10 mg PO DAILY [facility] Last Admin: 12/03/16 09:25 Dose: 10 mg Aspirin (Ecotrin) 81 mg PO DAILY [facility] Last Admin: 12/03/16 09:25 Dose: 81 mg Atorvastatin Calcium (Lipitor) 20 mg PO DIN [facility] Last Admin: 12/03/16 19:10 Dose: 20 mg Clonidine HCl (Catapres Tts1 0.1 Mg/24 Hr) 1 patch TD Q7D@1000 [facility] Last Admin: 12/03/16 14:33 Dose: 1 patch Enoxaparin Sodium (Lovenox) 40 mg SC DAILY [facility] PRN Reason: Protocol Last Admin: 12/03/16 09:25 Dose: 40 mg Ergocalciferol (Drisdol 50,000 Intl Units Cap) 1 cap PO Q7D [facility] Famotidine (Pepcid) 20 mg IVP DAILY [facility] Last Admin: 12/03/16 09:26 Dose: 20 mg Hydromorphone HCl (Dilaudid) 0.5 mg IVP Q4H PRN PRN Reason: Pain, severe (8-10) Last Admin: 12/04/16 05:42 Dose: 0.5 mg Vancomycin HCl (Vancomycin 1gm) 1 gm in 250 mls @ 167 mls/hr IVPB Q12H [facility] PRN Reason: Protocol Last Admin: 12/03/16 21:41 Dose: 167 mls/hr Piperacillin Sod/Tazobactam Sod (Zosyn 3.375 In Ns 100ml) 100 mls @ 200 mls/hr IVPB Q6 [facility] PRN Reason: Protocol Stop: 12/08/16 12:01 Last Admin: 12/04/16 05:38 Dose: 200 mls/hr Dextrose/Sodium Chloride (Dextrose 5%/0.45% Ns 1000 Ml) 1,000 mls @ 100 mls/hr IV .Q10H [facility] Levothyroxine Sodium (Synthroid) 25 mcg PO 0600 [facility] Last Admin: 12/03/16 09:28 Dose: 25 mcg Lisinopril (Zestril) 10 mg PO DAILY [facility] Last Admin: 12/03/16 09:25 Dose: 10 mg Multivitamins/Minerals (Therapeutic-M Tab) 1 tab PO 1000 [facility] Last Admin: 12/03/16 09:25 Dose: 1 tab Ondansetron HCl (Zofran Inj) 4 mg IVP Q4H PRN PRN Reason: Nausea/Vomiting Ondansetron HCl (Zofran Inj) 4 mg IVP ONCE PRN PRN Reason: Nausea/Vomiting Potassium Chloride (K-Dur 20 Meq Er Tab) 20 meq PO BRK [facility] Tramadol/Acetaminophen (Ultracet 37.5/325 Mg) 1 tab PO Q6H PRN PRN Reason: Pain, moderate (4-7) Last Admin: 12/03/16 09:42 Dose: 1 tab Zolpidem Tartrate (Ambien) 5 mg PO HS PRN; Protocol PRN Reason: Insomnia Last Admin: 12/03/16 00:26 Dose: 5 mg - Labs Labs: 12/04/16 07:00 12/03/16 07:00 PT 12.7 Seconds (9.9-11.8) H 12/02/16 07:00 INR 1.18 (0.93-1.08) H 12/02/16 07:00 APTT 27.1 Seconds (23.7-30.8) 12/02/16 07:00 - Constitutional Appears: Non-toxic, No Acute Distress - Head Exam Head Exam: NORMAL INSPECTION - Neck Exam Neck Exam: absent: Meningismus - Respiratory Exam Respiratory Exam: Decreased Breath Sounds - Cardiovascular Exam Cardiovascular Exam: +S1, +S2 - GI/Abdominal Exam GI & Abdominal Exam: Soft. 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
--- NOTE | 2016-12-04 14:17 | PN ---
DATE: 12/04/2016 REFERRING PHYSICIAN: Dr. Ramirez SUBJECTIVE: He is lying in the bed, head at 45 degrees. Family is at bedside. Feels better, decrea sed pain, on clear liquid diet. No bowel movement, passing gas. Abdominal pain is still there. No leg pain or leg swelling. OBJECTIVE: GENERAL: No acute distress. VITAL SIGNS: Temp is 98, heart rate is 80, respiratory rate is 20, blood pressure 132/81, pulse ox 1 00% on room air. HEENT: Moist mucous membranes. Crowded airway. NECK: Supple, no JVD. LUNGS: Have a few crackles at the bases. HEART: S1, S2. ABDOMEN: Soft, mild tenderness. Drain is draining serosanguineous fluid. Wound VAC working well. EXTREMITIES: There is no edema. NEUROLOGIC: Awake, alert, follows simple command. MEDICATIONS: He is on Ambien 5 mg at bedtime p.r.n., Catapres patch weekly, IV fluid D5 half normal saline 100 mL per hour, Dilaudid 0.5 mg q. 4 hours p.r.n., vitamin D is 50,000 units weekly, Ecotrin 81 mg daily, potassium 20 mEq daily, Lipitor 20 mg daily, Lovenox 40 mg daily, Norvasc 10 mg daily, P epcid 20 mg daily, Synthroid 25 mcg daily, multivitamins daily, tramadol/acetaminophen 37.5/325 one t ab q. 6 hours p.r.n., Zestril 10 mg daily, Zofran 4 mg IV q. 4 hours p.r.n. and Zosyn 3.375 g IV q. 6 hours. LABORATORY DATA: Shows hemoglobin 10.1, hematocrit 29.5, WBC 14.1, platelet is 469. Sodium 132, pot assium 3.4, chloride 98, bicarbonate 28, BUN 10, creatinine 1.1, glucose 120, calcium is 8.0, AST 40, ALT 42, alk phos is 57, albumin is 2.8. Has some gram-positive cocci in the wound culture. IMPRESSION AND PLAN: Left inguinal hernia repair in the remote past, end up with abscess requiring i ncision and drainage, found to have infected mesh and involvement of the sigmoid colon, underwent lap arotomy with mesh removal and also sigmoid partial resection with reanastomosis, history of coronary artery disease, may have sleep apnea syndrome. Pulmonary point of view, doing okay. Continue pain m anagement, antibiotics, gastric prophylaxis, deep venous thrombosis prophylaxis, out of bed to chair, incentive spirometer. Spoke to patient and family. All their questions answered. Thank you and we will follow with you. Dakotah Farrar MD cc: [id number] TT: 12/04/2016 14:16:44 Confirmation # [id number] Dictation # [id number] en
[2016-12-04] MEDS: TraMADol/Apap 37.5/325 mg Tab PO PRN (15:40)
--- NOTE | 2016-12-04 15:47 | PN ---
DATE: 12/04/2016 REASON FOR CONSULTATION AND FOLLOWUP: Preop evaluation, risk stratification, status post left colocu taneous fistula repair, exploratory laparotomy, removal of , removal of infected mesh, postop fo llowup. BRIEF CLINICAL HISTORY: A 81-year-old male with a past medical history significant for coronary rosa ry disease, hypertension, hyperlipidemia, COPD, history of diverticular colonic disease, history of i nguinal hernia in the past, history of mesh, history of recent inguinal abscess drained was done, sta tus post exploratory laparotomy and removal of infected mesh and repair of colocutaneous fistula. No w, patient complaining of pain , but otherwise feels okay. Denies any nausea, vomiting. PHYSICAL EXAMINATION: VITAL SIGNS: Temperature afebrile, heart rate 80, blood pressure 132/81. HEENT: PERRLA. Extraocular muscles intact. NECK: Supple. No carotid bruits. No thyromegaly. CHEST: Clear to auscultation. HEART: S1, S2 regular. ABDOMEN: Soft. EXTREMITIES: Clubbing, cyanosis negative. BLOOD WORKUP: WBC 14. , hemoglobin 10. , hematocrit 29.5, platelet count 469. Chemistry lynn ws sodium 130, potassium 3.4, chloride 98, carbon dioxide 28, anion gap of 9, BUN 10, creatinine 1.1. IMPRESSION: Protein-calorie malnutrition, moderate, was present on admission, hypokalemia, anemia, c olocutaneous fistula, infected mesh, history of inguinal repair in the past, status post explor atory laparotomy and removal of infected mesh. Increase nutrition support as tolerated. Continue mo nitor drainage. Continue antibiotic as given. Continue low-dose beta-naya as tolerated. Continu e atorvastatin. We will follow with you. Thank you, Dr. Ramirez, for providing us the opportunity in taking care of the patient. Supplement el ectrolytes as needed. Dakotah Chicas MD cc: [id number] TT: 12/04/2016 15:46:31 Confirmation # [id number] Dictation # [id number] en
== END 2016-12-04 16:27 | DRG 908 ==
LOC: 3RNO 16:37
PROVIDERS: ADMIT Internal Medicine; ATTEND Internal Medicine
PROC: 0WPF0JZ Removal of Synthetic Substitute from Abdominal Wall, Open Approach (ICD-10-PCS; principal; 2016-12-03)
PROC: 0DTN0ZZ Resection of Sigmoid Colon, Open Approach (ICD-10-PCS; 2016-12-03)
DX: T85.79XA Infection and inflammatory reaction due to other internal prosthetic devices, implants and grafts, initial encounter (principal); K63.2 Fistula of intestine; E44.0 Moderate protein-calorie malnutrition; K57.32 Diverticulitis of large intestine without perforation or abscess without bleeding; Z68.1 Body mass index [BMI] 19.9 or less, adult; E83.42 Hypomagnesemia; I27.2 Other secondary pulmonary hypertension; I07.1 Rheumatic tricuspid insufficiency; J44.9 Chronic obstructive pulmonary disease, unspecified; M19.90 Unspecified osteoarthritis, unspecified site; I25.10 Atherosclerotic heart disease of native coronary artery without angina pectoris; I10 Essential (primary) hypertension; G89.29 Other chronic pain; E78.5 Hyperlipidemia, unspecified; E03.9 Hypothyroidism, unspecified; M54.9 Dorsalgia, unspecified; E55.9 Vitamin D deficiency, unspecified; E87.6 Hypokalemia; D64.9 Anemia, unspecified; G47.30 Sleep apnea, unspecified; Z95.5 Presence of coronary angioplasty implant and graft

== ENCOUNTER 2016-12-04 16:22 | Inpatient (IN) | payer MEDICAID, OTHER ==
[2016-12-04 17:08] VITALS: BMI 17.2
[2016-12-04] MEDS ORDERED: Dextrose 5%/0.45% NS 1,000 ML IV SCH (17:15)
[2016-12-04] MEDS: HYDROmorphone 0.5 mg/0.5 ml ISec IVP PRN ×2 (19:01→23:11)
[2016-12-04] MEDS: Dextrose 5%/0.45% NS 1,000 ML IV SCH ×2 (20:09→22:19)
[2016-12-04] MEDS ORDERED: Pneumococcal 23-Valent Vaccine IM ONE (22:32)
[2016-12-04] MEDS: Piperacillin/Tazobact 3.375 gm 100 ML IVPB SCH (23:57)
[2016-12-05] MEDS: Vancomycin 1gm in NS 250ml 1 GM/250 ML BAG IVPB SCH ×2 (05:35→19:12)
[2016-12-05] MEDS: Piperacillin/Tazobact 3.375 gm 100 ML IVPB SCH ×3 (05:35→18:31)
[2016-12-05] MEDS: Levothyroxine 25 MCG TAB PO SCH (05:36)
[2016-12-05 08:17] LABS: BASO # 0.01 K/mm3 (0.0-2.0); BASO % 0.1 % (0.0-3.0); EOS % 0.1 % (1.5-5.0); GRAN # 16.03 (1.4-6.5); GRAN % 93.4 % (50.0-68.0); HEMATOCRIT 31.1 % (42.0-52.0); LYMPH # 0.5 (1.2-3.4); LYMPH % 3.2 % (22.0-35.0); MEAN CELL VOLUME 88.9 fL (80.0-105.0); MEAN CORPUSCULAR HEMOGLOBIN 31.4 pg (25.0-35.0); MEAN CORPUSCULAR HGB CONC 35.4 g/dl (31.0-37.0); MEAN PLATELET VOLUME 8.4 fl (7.0-11.0); MONO # 0.5 (0.1-0.6); MONO % 3.2 % (1.0-6.0); PLATELET COUNT 474 10^3/uL (120.0-450.0); RED CELL DISTRIBUTION WIDTH 13.3 % (11.5-14.5); WHITE BLOOD COUNT 17.1 10^3/ul (4.5-11.0)
[2016-12-05 08:18] LABS: ADD MANUAL DIFF? NO
[2016-12-05 08:24] LABS: BLOOD UREA NITROGEN 8 mg/dL (7-21); CALCIUM 8.1 mg/dL (8.4-10.5); CARBON DIOXIDE 27 mmol/L (21-33); CHLORIDE 93 mmol/L (98-107); GFR AFRICAN-AMERICAN > 60; GLUCOSE,RANDOM 196 mg/dL (70-110); SODIUM 129 mmol/L (132-148)
--- NOTE | 2016-12-05 08:42 | CP.PCM.CON ---
History of Present Illness - History of Present Illness History of Present Illness: Vijay Caro D.O. PGY-1, General Surgery Consultation Note 81 year old male s/p ex lap with sigmoid colon resection and primary anastomosis with wound vac placement in LLQ 2/2 infected mesh, now POD#3. Patient was seen and examined at bedside with surgical team in the TCU. Patient states that he has been getting some pain with coughing but otherwise his pain regimen controls his pain well. Patient has been getting out of bed and working with PT and sitting in the chair. Patient denies any fevers/chills/N/V/D or otherwise. Patient states that he passed some clotted blood from the rectum and some gas. Review of Systems - Review of Systems All systems: reviewed and no additional remarkable complaints except - Gastrointestinal Gastrointestinal: Abdominal Pain Past Patient History - Infectious Disease Hx of Infectious Diseases: None - Tetanus Immunizations Tetanus Immunization: Unknown - Past Social History Smoking Status: Never Smoked - CARDIAC Hx Cardiac Disorders: Yes (CAD, Stents x2) Hx Hypercholesterolemia: Yes Hx Hypertension: Yes - PULMONARY Hx Respiratory Disorders: No - NEUROLOGICAL Hx Neurological Disorder: No - HEENT Hx Cataracts: Yes (b/l sx) - RENAL Hx Kidney Stones: No - ENDOCRINE/METABOLIC Hx Hypothyroidism: Yes - HEMATOLOGICAL/ONCOLOGICAL Hx Blood Transfusions: No - INTEGUMENTARY Other/Comment: ble skin discoloration, llq abd ddressings x2 dry and intact over i&d site - MUSCULOSKELETAL/RHEUMATOLOGICAL Hx Falls: No - GASTROINTESTINAL Hx Gastrointestinal Disorders: (hiatal hernia/gi bleed/ infected mesh) - GENITOURINARY/GYNECOLOGICAL Hx Reproductive Disorders: No - PSYCHIATRIC Hx Psychophysiologic Disorder: No Hx Substance Use: No - SURGICAL HISTORY Hx Surgeries: (hernia sx uncertain) - ANESTHESIA Hx Anesthesia Reactions: No Hx Malignant Hyperthermia: No Meds Allergies/Adverse Reactions: Allergies Allergy/AdvReac Type Severity Reaction Status Date / Time No Known Allergies Allergy Verified 11/22/16 06:36 - Medications Medications: Current Medications Amlodipine Besylate (Norvasc) 5 mg PO DAILY [facility] PRN Reason: Protocol Aspirin (Ecotrin) 81 mg PO 0800 [facility] PRN Reason: Protocol Atorvastatin Calcium (Lipitor) 20 mg PO DIN [facility] PRN Reason: Protocol Clonidine HCl (Catapres Tts1 0.1 Mg/24 Hr) 1 patch TD Q7D@1000 [facility] PRN Reason: Protocol Enoxaparin Sodium (Lovenox) 40 mg SC DAILY [facility] PRN Reason: Protocol Ergocalciferol (Drisdol 50,000 Intl Units Cap) 1 cap PO Fr@1000 [facility] Famotidine (Pepcid) 20 mg IVP 0600 [facility] PRN Reason: Protocol Last Admin: 12/05/16 05:37 Dose: 20 mg Hydromorphone HCl (Dilaudid) 0.5 mg IVP Q4H PRN; Protocol PRN Reason: Pain, severe (8-10) Last Admin: 12/04/16 23:11 Dose: 0.5 mg Vancomycin HCl (Vancomycin 1gm) 1 gm in 250 mls @ 167 mls/hr IVPB 0600,1800 [facility] PRN Reason: Protocol Stop: 12/08/16 19:30 Last Admin: 12/05/16 05:35 Dose: 167 mls/hr Piperacillin Sod/Tazobactam Sod (Zosyn 3.375 In Ns 100ml) 100 mls @ 200 mls/hr IVPB Q6 [facility] PRN Reason: Protocol Stop: 12/08/16 06:29 Last Admin: 12/05/16 05:35 Dose: 200 mls/hr Dextrose/Sodium Chloride (Dextrose 5%/0.45% Ns 1000 Ml) 1,000 mls @ 100 mls/hr IV .Q10H [facility] PRN Reason: Protocol Last Admin: 12/04/16 22:19 Dose: 100 mls/hr Levothyroxine Sodium (Synthroid) 25 mcg PO 0600 [facility] PRN Reason: Protocol Last Admin: 12/05/16 05:36 Dose: 25 mcg Lisinopril (Zestril) 10 mg PO DAILY [facility] PRN Reason: Protocol Multivitamins/Minerals (Therapeutic-M Tab) 1 tab PO DAILY [facility] PRN Reason: Protocol Ondansetron HCl (Zofran Inj) 4 mg IVP Q4H PRN; Protocol PRN Reason: Nausea/Vomiting Potassium Chloride (K-Dur 20 Meq Er Tab) 20 meq PO 0800 [facility] PRN Reason: Protocol Tramadol HCl (Ultram) 50 mg PO TID [facility] Zolpidem Tartrate (Ambien) 5 mg PO HS PRN; Protocol PRN Reason: Insomnia Physical Exam - Constitutional Appears: Well, Non-toxic, No Acute Distress - Head Exam Head Exam: ATRAUMATIC, NORMOCEPHALIC - Eye Exam Eye Exam: EOMI, PERRL - ENT Exam ENT Exam: Mucous Membranes Moist - Respiratory Exam Respiratory Exam: absent: Accessory Muscle Use, Respiratory Distress - Cardiovascular Exam Cardiovascular Exam: RRR. absent: Bradycardia, Tachycardia - GI/Abdominal Exam GI & Abdominal Exam: Soft. absent: Distended, Tenderness Additional comments: midline dressing with mild serosangenous drainage, sofya drain with minimal output, OnQ in place @ 6, LLQ wound vac in place with minimal drainage at vac reservoir - Extremities Exam Extremities exam: Negative for: calf tenderness, pedal edema - Neurological Exam Neurological exam: Alert, Oriented x3 - Skin Skin Exam: Dry, Warm Results - Vital Signs Recent Vital Signs: Last Vital Signs Temp 98.2 F 12/04/16 22:24 Pulse 92 H 12/04/16 22:24 Resp 18 12/04/16 22:24 BP 160/82 H 12/04/16 22:24 Pulse Ox 98 12/04/16 16:53 - Labs Result Diagrams: 12/05/16 07:00 12/05/16 07:00 Labs: Laboratory Results - last 24 hr 12/05/16 12/05/16 07:00 07:00 WBC 17.1 H D RBC 3.50 Hgb 11.0 L Hct 31.1 L MCV 88.9 MCH 31.4 MCHC 35.4 RDW 13.3 Plt Count 474 H MPV 8.4 Gran % 93.4 H Lymph % (Auto) 3.2 L Emery % (Auto) 3.2 Eos % (Auto) 0.1 L Baso % (Auto) 0.1 Gran # 16.03 H Lymph # 0.5 L Emery # 0.5 Eos # 0.0 Baso # 0.01 Sodium 129 L Potassium 3.0 L Chloride 93 L Carbon Dioxide 27 Anion Gap 12 BUN 8 Creatinine 1.0 Est GFR ( Amer) > 60 Est GFR (Non-Af Amer) > 60 Random Glucose 196 H Calcium 8.1 L Assessment & Plan - Assessment and Plan (Free Text) Assessment: 81 year old male s/p ex lap with sigmoid colon resection and primary anastomosis with wound vac placement in LLQ 2/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 Thank you for the pleasure of participating in the care of this patient. - Date & Time Date: 12/05/16 Time: 06:45
[2016-12-05] MEDS: Potassium Chloride 20 mEq ER Tab PO SCH (09:00)
[2016-12-05] MEDS ORDERED: Enoxaparin 40 mg Syringe SC SCH (10:00)
[2016-12-05] MEDS: Multivitamin With Minerals Tab PO SCH (10:35)
[2016-12-05] MEDS: Dextrose 5%/0.45% NS 1,000 ML IV SCH (11:00)
[2016-12-06] MEDS: Dextrose 5%/0.45% NS 1,000 ML IV SCH ×3 (04:45→11:58)
[2016-12-06] MEDS: Levothyroxine 25 MCG TAB PO SCH (05:30)
[2016-12-06] MEDS: Piperacillin/Tazobact 3.375 gm 100 ML IVPB SCH ×4 (05:34→17:44)
[2016-12-06] MEDS: Vancomycin 1gm in NS 250ml 1 GM/250 ML BAG IVPB SCH ×2 (05:35→17:43)
[2016-12-06 07:09] LABS: HEMATOCRIT 27.9 % (42.0-52.0); MEAN CORPUSCULAR HEMOGLOBIN 30.6 pg (25.0-35.0); MEAN CORPUSCULAR HGB CONC 34.8 g/dl (31.0-37.0); MEAN PLATELET VOLUME 8.5 fl (7.0-11.0); WHITE BLOOD COUNT 12.3 10^3/ul (4.5-11.0)
[2016-12-06 07:38] LABS: BLOOD UREA NITROGEN 9 mg/dL (7-21); CALCIUM 7.8 mg/dL (8.4-10.5); CARBON DIOXIDE 26 mmol/L (21-33); CHLORIDE 93 mmol/L (98-107); GFR AFRICAN-AMERICAN > 60; GLUCOSE,RANDOM 186 mg/dL (70-110); SODIUM 127 mmol/L (132-148)
[2016-12-06 07:49] LABS: POTASSIUM 2.7 mmol/L (3.6-5.0)
[2016-12-06] MEDS: Potassium Chloride 20 mEq ER Tab PO SCH (08:04)
[2016-12-06] MEDS ORDERED: Potassium Chloride 20 mEq ER Tab PO ONE ×2 (08:28→12:34)
--- NOTE | 2016-12-06 08:37 | CP.PCM.PN ---
Subjective - Date & Time of Evaluation Date of Evaluation: 12/06/16 Time of Evaluation: 08:34 - Subjective Subjective: Surgery: Dr. Barrera Patient feeling well today. He reports using IS. He denies bleeding per rectum but nurse states he had another episode of light colored blood last night. He denies f/c/n/v. He denies BM reports flatus. He has not been ambulating. Objective - Vital Signs/Intake and Output Vital Signs (last 24 hours): Temp Pulse Resp BP Pulse Ox 97.6 F 77 16 142/67 94 L 12/06/16 06:00 12/06/16 06:00 12/06/16 06:00 12/06/16 06:00 12/06/16 06:00 Intake and Output: 12/06/16 12/06/16 06:59 18:59 Intake Total 300 Output Total 5 Balance 295 - Medications Medications: Current Medications Amlodipine Besylate (Norvasc) 5 mg PO DAILY [facility] PRN Reason: Protocol Aspirin (Ecotrin) 81 mg PO 0800 [facility] PRN Reason: Protocol Last Admin: 12/05/16 09:18 Dose: Not Given Atorvastatin Calcium (Lipitor) 20 mg PO DIN [facility] PRN Reason: Protocol Last Admin: 12/05/16 18:31 Dose: 20 mg Clonidine HCl (Catapres Tts1 0.1 Mg/24 Hr) 1 patch TD Q7D@1000 [facility] PRN Reason: Protocol Enoxaparin Sodium (Lovenox) 40 mg SC DAILY [facility] PRN Reason: Protocol Last Admin: 12/05/16 09:19 Dose: Not Given Ergocalciferol (Drisdol 50,000 Intl Units Cap) 1 cap PO Fr@1000 [facility] Famotidine (Pepcid) 20 mg IVP 0600 [facility] PRN Reason: Protocol Last Admin: 12/06/16 05:33 Dose: 20 mg Hydromorphone HCl (Dilaudid) 0.5 mg IVP Q4H PRN; Protocol PRN Reason: Pain, severe (8-10) Last Admin: 12/04/16 23:11 Dose: 0.5 mg Vancomycin HCl (Vancomycin 1gm) 1 gm in 250 mls @ 167 mls/hr IVPB 0600,1800 [facility] PRN Reason: Protocol Stop: 12/08/16 19:30 Last Admin: 12/06/16 05:35 Dose: 167 mls/hr Piperacillin Sod/Tazobactam Sod (Zosyn 3.375 In Ns 100ml) 100 mls @ 200 mls/hr IVPB Q6 [facility] PRN Reason: Protocol Stop: 12/08/16 06:29 Last Admin: 12/06/16 05:34 Dose: 200 mls/hr Dextrose/Sodium Chloride (Dextrose 5%/0.45% Ns 1000 Ml) 1,000 mls @ 100 mls/hr IV .Q10H [facility] PRN Reason: Protocol Last Admin: 12/06/16 04:46 Dose: 100 mls/hr Potassium Chloride (Potassium Chloride 20 Meq/100 Ml) 20 meq in 100 mls @ 50 mls/hr IVPB Q2H [facility] Stop: 12/06/16 12:29 Levothyroxine Sodium (Synthroid) 25 mcg PO 0600 [facility] PRN Reason: Protocol Last Admin: 12/06/16 05:30 Dose: 25 mcg Lisinopril (Zestril) 10 mg PO DAILY [facility] PRN Reason: Protocol Last Admin: 12/05/16 10:35 Dose: 10 mg Multivitamins/Minerals (Therapeutic-M Tab) 1 tab PO DAILY [facility] PRN Reason: Protocol Last Admin: 12/05/16 10:35 Dose: 1 tab Ondansetron HCl (Zofran Inj) 4 mg IVP Q4H PRN; Protocol PRN Reason: Nausea/Vomiting Potassium Chloride (K-Dur 20 Meq Er Tab) 20 meq PO 0800 [facility] PRN Reason: Protocol Last Admin: 12/06/16 08:04 Dose: 20 meq Tramadol HCl (Ultram) 50 mg PO TID [facility] Last Admin: 12/05/16 18:31 Dose: 50 mg Zolpidem Tartrate (Ambien) 5 mg PO HS PRN; Protocol PRN Reason: Insomnia - Labs Labs: 12/06/16 06:30 12/06/16 06:30 - Constitutional Appears: No Acute Distress, Cachectic, Chronically Ill - Head Exam Head Exam: ATRAUMATIC, NORMOCEPHALIC - Eye Exam Eye Exam: EOMI, Normal appearance - ENT Exam ENT Exam: Mucous Membranes Moist - Respiratory Exam Respiratory Exam: NORMAL BREATHING PATTERN. absent: Respiratory Distress - Cardiovascular Exam Cardiovascular Exam: REGULAR RHYTHM. absent: Tachycardia - GI/Abdominal Exam GI & Abdominal Exam: Distended, Soft. absent: Tenderness Additional comments: MIdline incision CDI. Clark drain R abdomen w/ 5cc output. Left groin wound about 1cm in depth and 2cm in length. Kline granulation tissue in base. Skin edges appear healthy. Wound vac sponge replaced and put on suction with good seal. - Extremities Exam Extremities Exam: absent: Calf Tenderness - Neurological Exam Neurological Exam: Alert, Awake - Psychiatric Exam Psychiatric exam: Normal Affect, Normal Mood Assessment and Plan - Assessment and Plan (Free Text) Assessment: 81 y/o male POD4 from ex lap, sigmoid resection and primary anastomosis 2/2 left groin mesh infection involving the colon. Plan: -cont abx -hold lovenox -afternoon CBC for trend -monitor for bleeding -K+ replacement -wound vac next change on Friday -d/w Dr. Bruce Song PGY1
[2016-12-06] MEDS: Multivitamin With Minerals Tab PO SCH (09:31)
[2016-12-06] MEDS ORDERED: Ergocalciferol 50,000 Intl Units Cap PO SCH (10:00)
--- NOTE | 2016-12-06 11:43 | CON ---
DATE: 12/06/2016 The patient seen in room 315 in transitional care. CHIEF COMPLAINT: Weakness times several days. 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 Now, patient is transferred to [facility] for further wound care and physical therapy. REVIEW OF SYSTEMS: Reveals no fevers, no chills, no nausea, no vomiting. No abdominal pain, diarrhe a or constipation. No bright red blood per rectum, no melena. PAST MEDICAL HISTORY: Significant for coronary artery disease, hypertension, chronic obstructive jonah g disease, arthritis, history of diverticulosis. PAST SURGICAL HISTORY: Significant for the recent surgery and abdominal surgery and colon resection. The patient also has had cardiac catheterization and cardiac stents. ALLERGIES: The patient has no known allergies. MEDICATIONS: Reviewed. PHYSICAL EXAMINATION: GENERAL: The patient is in bed, no acute distress; however, chronically weak. VITAL SIGNS: Temperature of 98, blood pressure is 140/60, respiratory rate of 18, heart rate of 72. HEENT: Unremarkable. NECK: Supple. LUNGS: Have decreased breath sounds. HEART: Normal S1, S2. ABDOMEN: Soft, nontender. The wound is clean. No rebound, no guarding. LABORATORY EXAMINATION: Reveals a white count of 17,000, is down to 12,300, hemoglobin of 9, platele ts of 441. Chemistries are noted. Microbiology from 12/02 is Enterococcus avium. Microbiology from 11/18 is Proteus mirabilis. All the blood cultures have been negative in this and previous admissio n. Dr. Linares note is reviewed. He says that the patient is a 81-year-old, had an exploratory lapa rotomy with sigmoid colon resection and primary anastomosis with a wound VAC and postop procedure day #4. ASSESSMENT AND PLAN: A 81-year-old male with hypertension, coronary artery disease, chronic obstruct ruslan pulmonary disease, arthritis and diverticulosis who had an inguinal abscess and fistula formation , had colon resection and is postop day #4 exploratory laparotomy and sigmoid resection with primary anastomosis for infected mesh, which has all been corrected. Currently on vancomycin and Zosyn. Mos t likely, we will discontinue the antibiotics in the next 24-48 hours. We will follow the white bloo d cell count, which appears to be improving. We will follow with you. Jonathan Woods MD cc: [id number] TT: 12/06/2016 11:43:02 Confirmation # [id number] Dictation # [id number] en
[2016-12-06] MEDS ORDERED: Potassium Ch 20mEq in D5W 50 ML in Dextrose 5%/0.45% NS 1,000 ML IV SCH (12:35)
[2016-12-06 13:44] LABS: HEMATOCRIT 28.7 % (42.0-52.0); MEAN CELL VOLUME 87.8 fL (80.0-105.0); MEAN CORPUSCULAR HEMOGLOBIN 31.2 pg (25.0-35.0); MEAN CORPUSCULAR HGB CONC 35.5 g/dl (31.0-37.0); MEAN PLATELET VOLUME 8.2 fl (7.0-11.0); WHITE BLOOD COUNT 13.1 10^3/ul (4.5-11.0)
[2016-12-06] MEDS: Potassium Chl 20mEq & D5W 1,000 ML IV SCH (14:51)
--- NOTE | 2016-12-06 15:33 | HP ---
CHIEF COMPLAINT: Abdominal pain. HISTORY OF PRESENT ILLNESS: The patient is a 81-year-old male, status post laparotomy with sigmoid colon resection and primary anastomosis with wound VAC placement on the left lower quadrant ineffective; mesh is removed. Now POD 3. The patient is still having pain. The patient has past medical history of hypertension, hypercholesterolemia. Actually, patient was admitted on the medical side with abscess in the left lower quadrant. Abscess was drained and patient was transferred to TCU, but in TCU he was constantly having pain and that abscess was draining constantly, then we took patient back to the medical floor for laparotomy. Now procedure is done. The patient is stable, is transferred back to TCU. Today, patient had episode of bleeding. Discussion done with the patient's nurse and the patient's daughter. PAST MEDICAL HISTORY: History of hypertension, diabetes mellitus, history of mesh placement, incision and drainage of the abscess, coronary artery disease, cardiac stenting, history of cataract removal bilaterally, hyperthyroidism, hiatal hernia, GI bleed, infected mesh. ALLERGIES: The patient is not allergic with any medication. FAMILY HISTORY: Father and mother, noncontributory. HABITS: No smoking, no drugs, no ethanol. REVIEW OF SYSTEMS: The patient seen and examined on the bedside. Daughter, Angela, was standing on the bedside also with the patient's nurse. The patient is not feeling hungry. He is not eating well; he does not like hospital food. Discussion done with patient's daughter that she can bring home food. The patient well educated for compliance and for eating. Still having pain in the stomach, but no nausea, vomiting or diarrhea. Has episodes of the lower GI bleeding that is trending down. PHYSICAL EXAMINATION: VITAL SIGNS: Temperature 98.2, pulse 72, blood pressure 112/69, respiratory rate 18. HEENT: Head normocephalic, atraumatic. Eyes: PERRLA. Extraocular muscles intact. Conjunctivae clear. Nose patent. Mucous membranes moist. NECK: Supple. No carotid bruit, JVD or thyromegaly. CHEST: Bilaterally symmetrical. HEART: S1, S2 positive. LUNGS: Clear to auscultation. ABDOMEN: Soft, tender; has dressings. EXTREMITIES: No edema, no cyanosis. NEUROLOGIC: The patient is awake, alert, moving all 4 extremities. No focal deficit. MEDICATIONS: Ambien, Catapres, Dilaudid, vitamin D, Ecotrin, potassium, Lipitor, Lovenox, K-Dur, Lipitor, Lovenox. LABORATORY DATA: White blood cells 17.1, hemoglobin 11.0, hematocrit 31.1, and platelets are 474. Sodium 129, potassium 3.0, chloride 93, glucose 196, potassium 8.1. ASSESSMENT AND PLAN: The patient is a 81-year-old male with hypokalemia ( replaced), hypochloremia, hyperglycemia, leukocytosis, anemia. Seen by GI/Dr. Vijay Caro. The patient has status post laparotomy with sigmoid colon resection, had a primary anastomosis with wound VAC placement in the left lower quadrant. Infected mesh removed. Today is POD 3. Getting physical therapy in the TCU. Tolerating pureed diet, but does not want to eat; supplementation given. Continue IV antibiotics as per infectious disease. Education done on the bedside. Urged to get food. Maybe surgery will remove Clark today. Continue wound VAC, pain medication, DVT and GI prophylaxis. Repeat labs. Will follow up. Hannah Ramirez MD cc: [id number] TT: 12/06/2016 08:53:35 claudia SANABRIA
--- NOTE | 2016-12-06 21:49 | PN ---
DATE: 12/06/2016 SUBJECTIVE: The patient was seen and examined on the bedside. Daughter, was sitting on the bedside and nurse was there. Length of time discussion done with the patient's daughter and nurse. The patient is feeling a little bit better. Is using the incentive spirometer. no blood in the stool. According to the patient, his stool was brown, but last night he had an episode of light colored blood in the stool. No fever, no chills. Appetite is not great. Trying to force the patient to eat. No fever, no chills. PHYSICAL EXAMINATION: VITAL SIGNS: Temperature 97.6, pulse 77, respiratory rate 16, blood pressure 142/67, and oxygenation 94%. HEAD: Normocephalic, atraumatic. EYES: PERRLA. Extraocular muscles intact. Conjunctivae clear. Nose is patent. NECK: Supple. No carotid bruit, JVD or thyromegaly. CHEST: Bilaterally symmetrical. HEART: S1, S2 positive. LUNGS: Clear to auscultation. ABDOMEN: Soft. Bowel sounds present. No organomegaly. EXTREMITIES: No edema, no cyanosis. NEUROLOGIC: The patient is awake, alert, moving all 4 extremities. No focal deficits. MEDICATIONS: Norvasc, Protonix, Lipitor, Catapres, Lovenox, vitamin D, Dilaudid , vancomycin, Zosyn, dextrose, potassium, Synthroid, Zestril, Zofran, Ultram and Ambien. LABORATORY DATA: White blood cells 12.3, hemoglobin 9.7, hematocrit 27.9, platelets 441. Sodium 127, potassium 2.7, BUN 9, creatinine 1.1, glucose of 186. ASSESSMENT AND PLAN: The patient is a 81-year-old male with leukocytosis, anemia, hyponatremia, hypokalemia, hyperglycemia, has a history of coronary artery disease with cardiac stenting, hypertension, who came with pain in the left lower quadrant. abscess. Abscess was drained. There was constant draining and pain and then infected mesh was removed by the surgeon. Colectomy and end to end anastomosis done. Now the patient is getting soft food. Improving slowly. Discussion done with patient's daughter. GI and DVT prophylaxis. Will repeat labs. Physical therapy. Will followup. Hannah Ramirez MD cc: [id number] TT: 12/06/2016 21:49:08 Confirmation # [id number] Dictation # [id number] MTDD
[2016-12-07] MEDS: Levothyroxine 25 MCG TAB PO SCH (05:07)
[2016-12-07] MEDS: Piperacillin/Tazobact 3.375 gm 100 ML IVPB SCH ×4 (05:10→17:41)
[2016-12-07] MEDS: Vancomycin 1gm in NS 250ml 1 GM/250 ML BAG IVPB SCH (05:11)
[2016-12-07] MEDS ORDERED: Enoxaparin 40 mg Syringe SC SCH (06:00)
--- NOTE | 2016-12-07 06:57 | CP.PCM.PN ---
Subjective - Date & Time of Evaluation Date of Evaluation: 12/07/16 Time of Evaluation: 05:15 - Subjective Subjective: General surgery progress note for Dr. Barrera Pt. s/e at bedside this AM. Patient had 3 watery bowel movements last night, denied any nausea, vomiting, fevers, chills, abdominal pain, or any other symptoms. Wound vac is functioning well with no leaks. Clark drain with minimal sero-sanguinous output Objective - Vital Signs/Intake and Output Vital Signs (last 24 hours): Temp Pulse Resp BP Pulse Ox 97.1 F L 90 20 146/80 94 L 12/06/16 10:00 12/06/16 10:00 12/06/16 10:00 12/06/16 10:00 12/06/16 06:00 Intake and Output: 12/06/16 12/07/16 18:59 06:59 Intake Total 250 Output Total 10 Balance 240 - Medications Medications: Current Medications Amlodipine Besylate (Norvasc) 5 mg PO DAILY [facility] PRN Reason: Protocol Last Admin: 12/06/16 12:02 Dose: Not Given Aspirin (Ecotrin) 81 mg PO 0800 [facility] PRN Reason: Protocol Last Admin: 12/05/16 09:18 Dose: Not Given Atorvastatin Calcium (Lipitor) 20 mg PO DIN [facility] PRN Reason: Protocol Last Admin: 12/06/16 17:43 Dose: 20 mg Clonidine HCl (Catapres Tts1 0.1 Mg/24 Hr) 1 patch TD Q7D@1000 [facility] PRN Reason: Protocol Enoxaparin Sodium (Lovenox) 40 mg SC 0600 [facility] PRN Reason: Protocol Ergocalciferol (Drisdol 50,000 Intl Units Cap) 1 cap PO Fr@1000 [facility] Last Admin: 12/06/16 13:48 Dose: 1 cap Famotidine (Pepcid) 20 mg PO 1000,2200 [facility] Last Admin: 12/06/16 21:19 Dose: Not Given Hydromorphone HCl (Dilaudid) 0.5 mg IVP Q4H PRN; Protocol PRN Reason: Pain, severe (8-10) Last Admin: 12/04/16 23:11 Dose: 0.5 mg Vancomycin HCl (Vancomycin 1gm) 1 gm in 250 mls @ 167 mls/hr IVPB 0600,1800 [facility] PRN Reason: Protocol Stop: 12/08/16 19:30 Last Admin: 12/07/16 05:11 Dose: 167 mls/hr Piperacillin Sod/Tazobactam Sod (Zosyn 3.375 In Ns 100ml) 100 mls @ 200 mls/hr IVPB Q6 [facility] PRN Reason: Protocol Stop: 12/08/16 06:29 Last Admin: 12/07/16 05:10 Dose: 200 mls/hr Potassium Chloride/Dextrose (Potassium Chl 20 Meq In D5w) 1,000 mls @ 100 mls/ hr IV .Q10H [facility] Last Admin: 12/06/16 14:51 Dose: 100 mls/hr Levothyroxine Sodium (Synthroid) 25 mcg PO 0600 [facility] PRN Reason: Protocol Last Admin: 12/07/16 05:07 Dose: 25 mcg Lisinopril (Zestril) 10 mg PO DAILY [facility] PRN Reason: Protocol Last Admin: 12/06/16 09:31 Dose: 10 mg Multivitamins/Minerals (Therapeutic-M Tab) 1 tab PO DAILY [facility] PRN Reason: Protocol Last Admin: 12/06/16 09:31 Dose: 1 tab Ondansetron HCl (Zofran Inj) 4 mg IVP Q4H PRN; Protocol PRN Reason: Nausea/Vomiting Potassium Chloride (K-Dur 20 Meq Er Tab) 40 meq PO 0800 [facility] PRN Reason: Protocol Tramadol HCl (Ultram) 50 mg PO TID [facility] Last Admin: 12/06/16 17:50 Dose: 50 mg Zolpidem Tartrate (Ambien) 5 mg PO HS PRN; Protocol PRN Reason: Insomnia Last Admin: 12/06/16 21:18 Dose: 5 mg - Labs Labs: 12/06/16 13:40 12/06/16 06:30 - Constitutional Appears: Well, Non-toxic, No Acute Distress - Head Exam Head Exam: ATRAUMATIC, NORMOCEPHALIC - Eye Exam Eye Exam: Normal appearance. absent: Conjunctival injection, Scleral icterus - ENT Exam ENT Exam: Mucous Membranes Moist, Normal Oropharynx - Respiratory Exam Respiratory Exam: NORMAL BREATHING PATTERN. absent: Accessory Muscle Use, Respiratory Distress - GI/Abdominal Exam GI & Abdominal Exam: Soft. absent: Distended, Tenderness Additional comments: Central surgical incision well approximated with james with mild erythema but no fluctuance or drainage or bleeding. Wound vac functioning well, Clark in the RLQ with minimal sero-sanguinous fluid output - Extremities Exam Extremities Exam: absent: Calf Tenderness, Pedal Edema, Tenderness - Neurological Exam Neurological Exam: Alert, Awake, Oriented x3 - Psychiatric Exam Psychiatric exam: Normal Affect, Normal Mood - Skin Skin Exam: Dry, Normal Color, Warm Assessment and Plan - Assessment and Plan (Free Text) Assessment: 81 y/o male POD5 from ex lap, sigmoid resection, primary anastomosis, and removal of groin mesh 2/2 left groin mesh infection involving the colon. Minimal fluid output in the clark drain wound vac functioning well hgb was stable yesterday afternoon Plan: -cont abx -hold lovenox -monitor for bleeding -F/u AM cbc, CMP -wound vac next change on Friday -D/C clark drain d/w Dr. Bruce Viveros, PGY1
[2016-12-07 07:21] LABS: ADD MANUAL DIFF? NO
[2016-12-07 07:30] LABS: BASO # 0.02 K/mm3 (0.0-2.0); BASO % 0.2 % (0.0-3.0); EOS # 0.1 (0.0-0.7); EOS % 0.8 % (1.5-5.0); GRAN # 8.29 (1.4-6.5); GRAN % 84.9 % (50.0-68.0); HEMATOCRIT 24.7 % (42.0-52.0); LYMPH # 0.8 (1.2-3.4); LYMPH % 8.3 % (22.0-35.0); MEAN CELL VOLUME 87.6 fL (80.0-105.0); MEAN CORPUSCULAR HEMOGLOBIN 30.9 pg (25.0-35.0); MEAN CORPUSCULAR HGB CONC 35.2 g/dl (31.0-37.0); MEAN PLATELET VOLUME 8.3 fl (7.0-11.0); MONO # 0.6 (0.1-0.6); MONO % 5.8 % (1.0-6.0); PLATELET COUNT 437 10^3/uL (120.0-450.0); RED CELL DISTRIBUTION WIDTH 13.1 % (11.5-14.5); WHITE BLOOD COUNT 9.8 10^3/ul (4.5-11.0)
[2016-12-07 07:39] LABS: ALB/GLOB RATIO 0.8 (1.1-1.8); ALKALINE PHOSPHATASE 90 U/L (38-133); ALT/SGPT 60 U/L (7-56); AST/SGOT 84 U/L (15-59); BILIRUBIN,TOTAL 0.5 mg/dL (0.2-1.3); BLOOD UREA NITROGEN 14 mg/dL (7-21); CALCIUM 7.7 mg/dL (8.4-10.5); CARBON DIOXIDE 25 mmol/L (21-33); CHLORIDE 96 mmol/L (98-107); GFR AFRICAN-AMERICAN > 60; GLUCOSE,RANDOM 129 mg/dL (70-110); POTASSIUM 3.6 mmol/L (3.6-5.0); SODIUM 127 mmol/L (132-148); TOTAL PROTEIN 5.3 g/dL (5.8-8.3)
[2016-12-07] MEDS: Potassium Chloride 20 mEq ER Tab PO SCH (08:30)
[2016-12-07] MEDS: Potassium Chl 20mEq & D5W 1,000 ML IV SCH ×3 (09:26→21:19)
[2016-12-07] MEDS: Multivitamin With Minerals Tab PO SCH (09:28)
[2016-12-07 12:38] LABS: HEMATOCRIT 26.1 % (42.0-52.0); MEAN CELL VOLUME 87.9 fL (80.0-105.0); MEAN CORPUSCULAR HEMOGLOBIN 31.3 pg (25.0-35.0); MEAN CORPUSCULAR HGB CONC 35.6 g/dl (31.0-37.0); MEAN PLATELET VOLUME 8.1 fl (7.0-11.0); RED CELL DISTRIBUTION WIDTH 13.2 % (11.5-14.5); WHITE BLOOD COUNT 10.6 10^3/ul (4.5-11.0)
--- NOTE | 2016-12-07 16:19 | PN ---
DATE: 12/07/2016 The patient is in bed in no acute distress, seen earlier in 315. PHYSICAL EXAMINATION: VITAL SIGNS: Temperature is 98, blood pressure is 140/70, respiratory rate of 18, heart rate of 86. HEENT: Unremarkable. NECK: Supple. LUNGS: Have decreased breath sounds. HEART: Normal S1, S2. ABDOMEN: Soft, nontender. LABORATORY DATA: Reveals a white count of 10,000, hemoglobin of 9, platelets of 387. Chemistries re veal the BUN of 14, creatinine of 1.2. AST is 84, ALT of 60. Microbiology is noted. Review of Dr. Barrera's note from today is noted ASSESSMENT AND PLAN: This is a 81-year-old male with postop procedure day #5 from exploratory lap an d sigmoid resection. The patient had a primary anastomosis and removal of groin mesh in the left elvin in, mesh infection involving the colon. The patient was on vancomycin and Zosyn with review of micro biology reveals Enterococcus avium and Proteus mirabilis. Review of the orders reveals the patient t o be on vancomycin and Zosyn. We will continue the Zosyn for another 24 hours, we will discontinue t he vancomycin for now, no evidence of methicillin-resistant Staphylococcus aureus and Zosyn should co stacy enterococcus therapy. Will discontinue the Zosyn within the next 24-48 hours. Jonathan Woods MD cc: [id number] TT: 12/07/2016 16:18:49 Confirmation # [id number] Dictation # [id number] antonio
[2016-12-08] MEDS: Piperacillin/Tazobact 3.375 gm 100 ML IVPB SCH ×2 (05:28)
[2016-12-08] MEDS: Levothyroxine 25 MCG TAB PO SCH (05:29)
--- NOTE | 2016-12-08 06:47 | PN ---
DATE: 12/07/2016 SUBJECTIVE: The patient is seen and examined on the bedside, looks comfortable. Last night episodes noted. Has history of bowel movement. Denies any nausea, vomiting, fever, chills. Abdominal pain is getting better. Wound VAC is functioning very well with no leaks. Clark drain with minimal sanguineous output. Appetite is not very great but increasing slowly. PHYSICAL EXAMINATION: VITAL SIGNS: Temperature 97.1, pulse 90, respiratory rate 20, blood pressure 142/80, pulse oximetry 94. HEENT: Head normocephalic, atraumatic. Eyes PERRLA. Extraocular muscles intact. Conjunctivae clear. Nose patent. Mucous membranes moist. NECK: Supple. No carotid bruit. No JVD or thyromegaly. CHEST: Bilaterally symmetrical. HEART: S1, S2 positive. LUNGS: Clear to auscultation. ABDOMEN: Soft. Bowel sounds positive. No organomegaly but oil process stillman on palpation. Has dressing. EXTREMITIES: No edema, no cyanosis. NEUROLOGIC: The patient awake, alert. Moving all 4 extremities. No focal deficits. MEDICATIONS: Norvasc, Ecotrin, Lipitor, Catapres, Lovenox, Pepcid, vancomycin, tazobactam, dextrose, Synthroid, Zestril, multivitamin, Zofran, Ultram. LABORATORY DATA: White blood cells 13.1, hemoglobin 10.2, hematocrit 28.7, platelets 245. Sodium 127, potassium 2.7, BUN 9, creatinine 1.1, glucose 186. ASSESSMENT: The patient is a 81-year-old male with leukocytosis, anemia, hyponatremia, hypokalemia, hyperglycemia, status post exploratory laparotomy, # 5, sigmoid resection, primary anastomosis and removal of the groin mesh, left groin mass was infected, involving the colon; fluid output in the Clark drain as per surgery. Wound vacuum assisted closure functions very well. Hemoglobin is stable. PLAN: Continue antibiotics, hold the Lovenox. for bleeding. Follow up a.m. CBC, CMP. Wound VAC, next change on Friday, discontinue Clark drain. The patient has history of coronary artery disease, cardiac stenting. Appreciated Dr. Aj Barrera's notes and Dr. Woods's notes. The patient was on vancomycin and Zosyn. microbiology reveals Enterococcus avium and Proteus mirabilis. Review of the orders reveals that patient be on vancomycin and Zosyn. Continue Zosyn for another 24 hours. Discontinue vancomycin for now. No evidence of Methicillin-resistant Staphylococcus aureus so Zosyn should cover the enterococcus therapy as per ID and according to him, he would discontinue Zosyn in 24-48 hours. Discussion done with the patient and nursing staff. The patient has come out of the chair into physical therapy. Otherwise , we will follow up. Hannah Ramirez MD cc: [id number] TT: 12/08/2016 06:47:36 Confirmation # [id number] Dictation # [id number] sn MTDD
[2016-12-08 07:29] LABS: ADD MANUAL DIFF? NO
[2016-12-08 07:57] LABS: BASO # 0.02 K/mm3 (0.0-2.0); BASO % 0.2 % (0.0-3.0); EOS # 0.2 (0.0-0.7); EOS % 1.6 % (1.5-5.0); GRAN # 8.31 (1.4-6.5); HEMATOCRIT 25.1 % (42.0-52.0); LYMPH % 9.7 % (22.0-35.0); MEAN CELL VOLUME 87.2 fL (80.0-105.0); MEAN CORPUSCULAR HEMOGLOBIN 30.2 pg (25.0-35.0); MEAN CORPUSCULAR HGB CONC 34.7 g/dl (31.0-37.0); MEAN PLATELET VOLUME 8.7 fl (7.0-11.0); MONO # 0.8 (0.1-0.6); MONO % 7.5 % (1.0-6.0); PLATELET COUNT 426 10^3/uL (120.0-450.0); WHITE BLOOD COUNT 10.3 10^3/ul (4.5-11.0)
[2016-12-08 08:03] LABS: BLOOD UREA NITROGEN 12 mg/dL (7-21); CALCIUM 7.7 mg/dL (8.4-10.5); CARBON DIOXIDE 26 mmol/L (21-33); CHLORIDE 89 mmol/L (95-110); GFR AFRICAN-AMERICAN > 60; GLUCOSE,RANDOM 160 mg/dL (70-110); MAGNESIUM 1.6 mg/dL (1.7-2.2); POTASSIUM 3.4 mmol/L (3.6-5.0); SODIUM 121 mmol/L (132-148)
[2016-12-08] MEDS: Potassium Chloride 20 mEq ER Tab PO SCH (08:03)
--- NOTE | 2016-12-08 08:33 | CP.PCM.PN ---
Subjective - Date & Time of Evaluation Date of Evaluation: 12/08/16 Time of Evaluation: 08:29 - Subjective Subjective: General Surgery Progress Note for Dr. Barrera This patient 81M was seen and examined this Am at bedside. He reports no acute events overnight. Clark drain without output, wound vac on suction. Denies bloody BM, denies any nausea, vomiting, fevers, chills, abdominal pain, or any other symptoms. Objective - Vital Signs/Intake and Output Vital Signs (last 24 hours): Temp Pulse Resp BP Pulse Ox 97.5 F L 76 20 129/69 97 12/08/16 06:00 12/08/16 06:00 12/08/16 06:00 12/08/16 06:00 12/08/16 06:00 Intake and Output: 12/08/16 12/08/16 06:59 18:59 Output Total 2 Balance -2 - Medications Medications: Current Medications Amlodipine Besylate (Norvasc) 5 mg PO DAILY [facility] PRN Reason: Protocol Last Admin: 12/07/16 09:27 Dose: 5 mg Aspirin (Ecotrin) 81 mg PO 0800 [facility] PRN Reason: Protocol Last Admin: 12/05/16 09:18 Dose: Not Given Atorvastatin Calcium (Lipitor) 20 mg PO DIN [facility] PRN Reason: Protocol Last Admin: 12/07/16 17:41 Dose: 20 mg Clonidine HCl (Catapres Tts1 0.1 Mg/24 Hr) 1 patch TD Q7D@1000 [facility] PRN Reason: Protocol Enoxaparin Sodium (Lovenox) 40 mg SC 0600 [facility] PRN Reason: Protocol Ergocalciferol (Drisdol 50,000 Intl Units Cap) 1 cap PO Fr@1000 [facility] Last Admin: 12/06/16 13:48 Dose: 1 cap Famotidine (Pepcid) 20 mg PO 1000,2200 [facility] Last Admin: 12/07/16 21:21 Dose: 20 mg Hydromorphone HCl (Dilaudid) 0.5 mg IVP Q4H PRN; Protocol PRN Reason: Pain, severe (8-10) Last Admin: 12/04/16 23:11 Dose: 0.5 mg Potassium Chloride/Dextrose (Potassium Chl 20 Meq In D5w) 1,000 mls @ 100 mls/ hr IV .Q10H [facility] Last Admin: 12/07/16 21:19 Dose: 100 mls/hr Levothyroxine Sodium (Synthroid) 25 mcg PO 0600 [facility] PRN Reason: Protocol Last Admin: 12/08/16 05:29 Dose: 25 mcg Lisinopril (Zestril) 10 mg PO DAILY [facility] PRN Reason: Protocol Last Admin: 12/07/16 09:28 Dose: 10 mg Multivitamins/Minerals (Therapeutic-M Tab) 1 tab PO DAILY [facility] PRN Reason: Protocol Last Admin: 12/07/16 09:28 Dose: 1 tab Ondansetron HCl (Zofran Inj) 4 mg IVP Q4H PRN; Protocol PRN Reason: Nausea/Vomiting Potassium Chloride (K-Dur 20 Meq Er Tab) 40 meq PO 0800 [facility] PRN Reason: Protocol Last Admin: 12/08/16 08:03 Dose: 40 meq Tramadol HCl (Ultram) 50 mg PO TID [facility] Last Admin: 12/07/16 17:45 Dose: 50 mg Zolpidem Tartrate (Ambien) 5 mg PO HS PRN; Protocol PRN Reason: Insomnia Last Admin: 12/06/16 21:18 Dose: 5 mg - Labs Labs: 12/08/16 07:00 12/08/16 07:00 - Constitutional Appears: Well, Non-toxic, No Acute Distress - Head Exam Head Exam: ATRAUMATIC, NORMOCEPHALIC - Eye Exam Eye Exam: Normal appearance. absent: Conjunctival injection, Scleral icterus - ENT Exam ENT Exam: Mucous Membranes Moist, Normal Oropharynx - Respiratory Exam Respiratory Exam: NORMAL BREATHING PATTERN. absent: Accessory Muscle Use, Respiratory Distress - GI/Abdominal Exam GI & Abdominal Exam: Soft. absent: Distended, Tenderness Additional comments: Central surgical incision well approximated with james with mild erythema but no fluctuance or drainage or bleeding. Wound vac functioning well, Clark in the RLQ with minimal sero-sanguinous fluid output - Extremities Exam Extremities Exam: absent: Calf Tenderness, Pedal Edema, Tenderness - Neurological Exam Neurological Exam: Alert, Awake, Oriented x3 - Psychiatric Exam Psychiatric exam: Normal Affect, Normal Mood - Skin Skin Exam: Dry, Normal Color, Warm Assessment and Plan - Assessment and Plan (Free Text) Assessment: This is a 81M with a PMH of CAD, COPD, HTN, HLD, and Diverticula, who is POD#6 s/p ex lap, sigmoid resection, primary anastomosis, and removal of groin mesh 2/ 2 left groin mesh infection involving the colon. -Hgb decreased from 9.3-->8.7 -cont abx -hold lovenox -monitor for bleeding -F/u AM cbc, CMP -wound vac next change on Friday Will discuss with Dr. Bruce Pack PGY1
--- NOTE | 2016-12-08 11:59 | PN ---
DATE: 12/08/2016 The patient is in bed, in no acute distress, nontoxic. PHYSICAL EXAMINATION: VITAL SIGNS: Temperature is 97, blood pressure is 130/60, respiratory rate of 20, heart rate of 80. HEENT: Unremarkable. NECK: Supple. LUNGS: Have decreased breath sounds. HEART: Normal S1, S2. ABDOMEN: Soft, nontender. LABORATORY EXAMINATION: Reveals a white count of 10,000, hemoglobin of 8, platelets of 426. Music Intern patricia reveals the BUN of 12, creatinine of 1.1. Microbiology is noted. ASSESSMENT AND PLAN: A 81-year-old male with postop procedure day #6, exploratory lap, sigmoid resec tion, had primary anastomosis, removal of a groin infected mesh and had received vancomycin and Zosyn and now currently only on Zosyn. We will discontinue the Zosyn. No further need for antibiotics at this point. The Zosyn was discontinued by pharmacy. Currently off of antibiotics. We will follow with you. The patient is at risk for developing nosocomial infections. Jonathan Woods MD cc: [phone] TT: 12/08/2016 11:58:57 Confirmation # [id number] Dictation # [id number] en
[2016-12-08] MEDS: Potassium Chl 20mEq & D5W 1,000 ML IV SCH ×2 (12:00→15:05)
[2016-12-08] MEDS: Multivitamin With Minerals Tab PO SCH (12:01)
[2016-12-09] MEDS: Levothyroxine 25 MCG TAB PO SCH (05:39)
[2016-12-09 06:40] LABS: HEMATOCRIT 27.2 % (42.0-52.0); MEAN CELL VOLUME 86.1 fL (80.0-105.0); MEAN CORPUSCULAR HEMOGLOBIN 30.7 pg (25.0-35.0); MEAN CORPUSCULAR HGB CONC 35.7 g/dl (31.0-37.0); MEAN PLATELET VOLUME 8.7 fl (7.0-11.0); RED CELL DISTRIBUTION WIDTH 12.8 % (11.5-14.5); WHITE BLOOD COUNT 10.6 10^3/ul (4.5-11.0)
[2016-12-09 07:07] LABS: ALB/GLOB RATIO 0.8 (1.1-1.8); ALKALINE PHOSPHATASE 154 U/L (38-133); ALT/SGPT 86 U/L (7-56); AST/SGOT 102 U/L (15-59); BILIRUBIN,TOTAL 0.6 mg/dL (0.2-1.3); BLOOD UREA NITROGEN 12 mg/dL (7-21); CALCIUM 8.2 mg/dL (8.4-10.5); CARBON DIOXIDE 26 mmol/L (21-33); CHLORIDE 89 mmol/L (98-107); GFR AFRICAN-AMERICAN > 60; GLUCOSE,RANDOM 178 mg/dL (70-110); IRON 12 ug/dL (45-180); POTASSIUM 3.8 mmol/L (3.6-5.0); SODIUM 122 mmol/L (132-148); TOTAL PROTEIN 5.7 g/dL (5.8-8.3)
--- NOTE | 2016-12-09 07:50 | CP.PCM.PN ---
Subjective - Date & Time of Evaluation Date of Evaluation: 12/09/16 Time of Evaluation: 06:45 - Subjective Subjective: General Surgery Pt S&E, NAKathyO. OOB yesterday. Says pain meds make him too sleepy. +BMs, using IS. Objective - Vital Signs/Intake and Output Vital Signs (last 24 hours): Temp Pulse Resp BP Pulse Ox 98.2 F 74 20 148/77 98 12/09/16 06:00 12/09/16 06:00 12/09/16 06:00 12/09/16 06:00 12/09/16 06:00 Intake and Output: 12/09/16 12/09/16 06:59 18:59 Intake Total 1450 Output Total 702 Balance 748 - Medications Medications: Current Medications Amlodipine Besylate (Norvasc) 5 mg PO DAILY [facility] PRN Reason: Protocol Last Admin: 12/08/16 12:01 Dose: 5 mg Aspirin (Ecotrin) 81 mg PO 0800 [facility] PRN Reason: Protocol Last Admin: 12/05/16 09:18 Dose: Not Given Atorvastatin Calcium (Lipitor) 20 mg PO DIN [facility] PRN Reason: Protocol Last Admin: 12/08/16 18:05 Dose: Not Given Clonidine HCl (Catapres Tts1 0.1 Mg/24 Hr) 1 patch TD Q7D@1000 [facility] PRN Reason: Protocol Enoxaparin Sodium (Lovenox) 40 mg SC 0600 [facility] PRN Reason: Protocol Ergocalciferol (Drisdol 50,000 Intl Units Cap) 1 cap PO Fr@1000 [facility] Last Admin: 12/06/16 13:48 Dose: 1 cap Famotidine (Pepcid) 20 mg PO 1000,2200 [facility] Last Admin: 12/08/16 21:38 Dose: 20 mg Hydromorphone HCl (Dilaudid) 0.5 mg IVP Q4H PRN; Protocol PRN Reason: Pain, severe (8-10) Last Admin: 12/04/16 23:11 Dose: 0.5 mg Potassium Chloride/Dextrose (Potassium Chl 20 Meq In D5w) 1,000 mls @ 100 mls/ hr IV .Q10H [facility] Last Admin: 12/08/16 15:05 Dose: Not Given Levothyroxine Sodium (Synthroid) 25 mcg PO 0600 [facility] PRN Reason: Protocol Last Admin: 12/09/16 05:39 Dose: 25 mcg Lisinopril (Zestril) 10 mg PO DAILY [facility] PRN Reason: Protocol Last Admin: 12/08/16 12:01 Dose: 10 mg Multivitamins/Minerals (Therapeutic-M Tab) 1 tab PO DAILY [facility] PRN Reason: Protocol Last Admin: 12/08/16 12:01 Dose: 1 tab Ondansetron HCl (Zofran Inj) 4 mg IVP Q4H PRN; Protocol PRN Reason: Nausea/Vomiting Potassium Chloride (K-Dur 20 Meq Er Tab) 40 meq PO 0800 [facility] PRN Reason: Protocol Last Admin: 12/08/16 08:03 Dose: 40 meq Tramadol HCl (Ultram) 50 mg PO TID [facility] Last Admin: 12/08/16 17:26 Dose: Not Given Zolpidem Tartrate (Ambien) 5 mg PO HS PRN; Protocol PRN Reason: Insomnia Last Admin: 12/09/16 01:15 Dose: 5 mg - Labs Labs: 12/09/16 05:30 12/09/16 05:30 - Constitutional Appears: Non-toxic, No Acute Distress - Head Exam Head Exam: ATRAUMATIC, NORMOCEPHALIC - Eye Exam Eye Exam: EOMI. absent: Scleral icterus - Respiratory Exam Respiratory Exam: NORMAL BREATHING PATTERN. absent: Respiratory Distress - GI/Abdominal Exam GI & Abdominal Exam: Soft, Tenderness (mild at incision sites). absent: Distended, Firm, Guarding, Rigid Additional comments: Incision C/D/I L inguinal wound vac in place RLQ Drain in place - Neurological Exam Neurological Exam: Alert, Awake - Skin Skin Exam: Dry, Warm Assessment and Plan - Assessment and Plan (Free Text) Assessment: 81M POD# 7 from ex lap, sigmoid resection and primary anastomosis 2/2 left groin mesh infection involving the colon. Plan: Removed drain Repositioned abd binder Will reassess wound vac later today for changing/removing. D/W Dr. Bruce Solano PGY3
--- NOTE | 2016-12-09 08:15 | PN ---
DATE: 12/08/2016 SUBJECTIVE: The patient is seen and examined on the bedside. Looks comfortable. Pain is slowly, sl owly getting better. No acute event happened overnight. Clark drain without output. Wound VAC on ection working well. Had a couple of bowel movements. Denies any nausea or vomiting. No blood in the stool. No fever, no chills. No headache, no dizziness. PHYSICAL EXAMINATION: VITAL SIGNS: Temperature 97.5, pulse 76, respiratory rate 20, blood pressure 120/69, and pulse oxime try 97. HEENT: Head is normocephalic, atraumatic. Eyes: PERRLA. Extraocular muscles intact. Conjunctivae are clear. Nose patent. Mucous membranes moist. NECK: Supple. No carotid bruit. No JVD or thyromegaly. CHEST: Bilaterally symmetrical. HEART: S1, S2 positive. LUNGS: Clear to auscultation. ABDOMEN: Soft. Bowel sounds present. No organomegaly. EXTREMITIES: No edema, no cyanosis. NEUROLOGIC: The patient is awake, alert; moving all 4 extremities. No focal deficit. MEDICATIONS: Amlodipine, aspirin, atorvastatin, clonidine, Lovenox, vitamin D, Dilaudid, potassium, Zestril, Zofran, tramadol. LABORATORY DATA: White blood cells 10.3, hemoglobin 8.7, hematocrit 25.1, platelets 426. Sodium 121 , potassium 3.4, BUN 12, creatinine 1.1, glucose 160. ASSESSMENT AND PLAN: The patient is a 81-year-old male with anemia, hyponatremia, hypokalemia, hyper glycemia, history of coronary artery disease, chronic obstructive pulmonary disease, hypertension, di verticulitis. Is postoperative day #6, status post exploratory laparotomy, sigmoid colon resection, primary anastomosis, removal of the groin mesh; history of abscess draining from the left groin invol ving the colon. Hemoglobin is trending down; we will continue checking on that. Continue antibiotic s. Hold Lovenox. Monitor for bleeding. Wound VAC next change on Friday. Appreciated Dr. Barrera's PGY-1's input. Seen by Dr. Woods. Received vancomycin and Zosyn. Now currently only on Zosyn . According to Dr. Woods, will discontinue Zosyn. No further need of antibiotics at this point . Continue off the antibiotics. GI and DVT prophylaxis. Repeat labs. Continue checking H and H. Will follow up. Hannah Ramirez MD cc: [id number] TT: 12/09/2016 08:14:36 Confirmation # [id number] Dictation # [id number] mn
[2016-12-09] MEDS: Potassium Chloride 20 mEq ER Tab PO SCH (08:30)
[2016-12-09] MEDS: Enoxaparin 40 mg Syringe SC SCH (10:43)
[2016-12-09] MEDS: Multivitamin With Minerals Tab PO SCH (10:44)
[2016-12-09 15:39] LABS: FOLATE 10.4 ng/mL
--- NOTE | 2016-12-09 16:12 | PN ---
DATE: 12/09/2016 The patient is in bed, in no acute distress, nontoxic. PHYSICAL EXAMINATION: VITAL SIGNS: Temperature is 98, blood pressure is 120/70, respiratory rate of 16. HEENT: Unremarkable. NECK: Supple. LUNGS: Have decreased breath sounds. HEART: Normal S1, S2. ABDOMEN: Soft. LABORATORY EXAMINATION: Reveals a white count of 10,600, hemoglobin of 9. BUN of 12, creatinine of 1.1. Microbiology is noted. ASSESSMENT AND PLAN: A 81-year-old male with postop procedure day #7 exploratory lap, sigmoid resect ion, had primary anastomosis, removal of the groin infected mesh and now patient is off of antibiotic s, afebrile. He is at risk for developing nosocomial infection. The patient's review of orders reve als that patient is off of antibiotics. Chemistries are noted. Mild elevation of with a normal whit e count. The patient is on atorvastatin 20 mg a day and Pepcid and Synthroid. Jonathan Woods MD cc: [phone] TT: 12/09/2016 16:10:48 Confirmation # [id number] Dictation # [id number] en
[2016-12-10] MEDS: Levothyroxine 25 MCG TAB PO SCH (05:27)
[2016-12-10] MEDS: Potassium Chloride 20 mEq ER Tab PO SCH (07:57)
[2016-12-10] MEDS: Enoxaparin 40 mg Syringe SC SCH (09:54)
[2016-12-10] MEDS: Multivitamin With Minerals Tab PO SCH (09:57)
--- NOTE | 2016-12-10 11:13 | CP.PCM.PN ---
Subjective - Date & Time of Evaluation Date of Evaluation: 12/10/16 Time of Evaluation: 11:11 - Subjective Subjective: Surgery: Dr. Barrera Patient doing well. Tolerating diet. Has been slow to get out of bed but has been minimally ambulating the past 2 days Objective - Vital Signs/Intake and Output Vital Signs (last 24 hours): Temp Pulse Resp BP Pulse Ox 97.3 F L 80 20 117/67 98 12/09/16 10:00 12/10/16 09:58 12/09/16 10:00 12/10/16 09:58 12/09/16 10:00 - Medications Medications: Current Medications Amlodipine Besylate (Norvasc) 5 mg PO DAILY [facility] PRN Reason: Protocol Last Admin: 12/10/16 09:58 Dose: 5 mg Aspirin (Ecotrin) 81 mg PO 0800 [facility] PRN Reason: Protocol Last Admin: 12/05/16 09:18 Dose: Not Given Atorvastatin Calcium (Lipitor) 20 mg PO DIN [facility] PRN Reason: Protocol Last Admin: 12/09/16 18:00 Dose: 20 mg Clonidine HCl (Catapres Tts1 0.1 Mg/24 Hr) 1 patch TD Q7D@1000 [facility] PRN Reason: Protocol Last Admin: 12/10/16 09:58 Dose: 1 patch Enoxaparin Sodium (Lovenox) 40 mg SC DAILY [facility] PRN Reason: Protocol Last Admin: 12/10/16 09:54 Dose: 40 mg Ergocalciferol (Drisdol 50,000 Intl Units Cap) 1 cap PO Fr@1000 [facility] Last Admin: 12/06/16 13:48 Dose: 1 cap Famotidine (Pepcid) 20 mg PO 1000,2200 [facility] Last Admin: 12/10/16 09:57 Dose: 20 mg Potassium Chloride 20 meq/ (Sodium Chloride) 1,010 mls @ 100 mls/hr IV .Q10H6M [facility] Last Admin: 12/10/16 05:27 Dose: 100 mls/hr Ketorolac Tromethamine (Toradol) 30 mg IVP Q6 PRN PRN Reason: Pain, severe (8-10) Levothyroxine Sodium (Synthroid) 25 mcg PO 0600 [facility] PRN Reason: Protocol Last Admin: 12/10/16 05:27 Dose: 25 mcg Lisinopril (Zestril) 10 mg PO DAILY [facility] PRN Reason: Protocol Last Admin: 12/10/16 09:56 Dose: 10 mg Multivitamins/Minerals (Therapeutic-M Tab) 1 tab PO DAILY [facility] PRN Reason: Protocol Last Admin: 12/10/16 09:57 Dose: 1 tab Ondansetron HCl (Zofran Inj) 4 mg IVP Q4H PRN; Protocol PRN Reason: Nausea/Vomiting Potassium Chloride (K-Dur 20 Meq Er Tab) 40 meq PO 0800 [facility] PRN Reason: Protocol Last Admin: 12/10/16 07:57 Dose: 40 meq Tramadol HCl (Ultram) 50 mg PO Q6 PRN PRN Reason: Pain, moderate (4-7) Last Admin: 12/10/16 02:25 Dose: 50 mg Zolpidem Tartrate (Ambien) 5 mg PO HS PRN; Protocol PRN Reason: Insomnia Last Admin: 12/09/16 01:15 Dose: 5 mg - Labs Labs: 12/09/16 05:30 12/09/16 05:30 - Constitutional Appears: Cachectic, Chronically Ill - Head Exam Head Exam: ATRAUMATIC, NORMOCEPHALIC - Eye Exam Eye Exam: EOMI, Normal appearance - ENT Exam ENT Exam: Mucous Membranes Moist - Respiratory Exam Respiratory Exam: NORMAL BREATHING PATTERN. absent: Respiratory Distress - Cardiovascular Exam Cardiovascular Exam: REGULAR RHYTHM. absent: Tachycardia - GI/Abdominal Exam GI & Abdominal Exam: Soft. absent: Distended, Tenderness, Rebound Additional comments: midline incision CDI w/ staple closure. Left groin dressing CDI. Right prior sofya dressing CDI. Assessment and Plan - Assessment and Plan (Free Text) Assessment: 81 y/o male s/p ex lap, sigmoid resection and primary anastomosis 2/2 left groin mesh infection involving the colon POD8 Plan: -encourage OOB and IS use -daily dressing changes -encourage protein intake -no further surgical intervention -will follow -d/w Dr. Bruce Song PGY1
[2016-12-10 16:01] VITALS: O2SAT 96
[2016-12-10] MEDS: Albuterol-Ipratrop 3 mg / 0.5 (3 ml) UD IH SCH (23:13)
--- NOTE | 2016-12-10 23:38 | CP.PCM.PN ---
Subjective - Date & Time of Evaluation Date of Evaluation: 12/10/16 Time of Evaluation: 07:00 - Subjective Subjective: WEAKNESS Objective - Vital Signs/Intake and Output Vital Signs (last 24 hours): Temp Pulse Resp BP Pulse Ox 97.4 F L 80 18 141/74 96 12/10/16 15:59 12/10/16 23:14 12/10/16 10:00 12/10/16 15:59 12/10/16 15:59 - Medications Medications: Current Medications Albuterol/Ipratropium (Duoneb 3 Mg/0.5 Mg (3 Ml) Ud) 3 ml IH [id number] [facility] Last Admin: 12/10/16 23:13 Dose: 3 ml Amlodipine Besylate (Norvasc) 5 mg PO DAILY [facility] PRN Reason: Protocol Last Admin: 12/10/16 09:58 Dose: 5 mg Aspirin (Ecotrin) 81 mg PO 0800 [facility] PRN Reason: Protocol Last Admin: 12/05/16 09:18 Dose: Not Given Atorvastatin Calcium (Lipitor) 20 mg PO DIN [facility] PRN Reason: Protocol Last Admin: 12/10/16 17:25 Dose: 20 mg Clonidine HCl (Catapres Tts1 0.1 Mg/24 Hr) 1 patch TD Q7D@1000 [facility] PRN Reason: Protocol Last Admin: 12/10/16 09:58 Dose: 1 patch Enoxaparin Sodium (Lovenox) 40 mg SC 0600 [facility] PRN Reason: Protocol Ergocalciferol (Drisdol 50,000 Intl Units Cap) 1 cap PO Fr@1000 [facility] Last Admin: 12/06/16 13:48 Dose: 1 cap Famotidine (Pepcid) 20 mg PO 1000,2200 [facility] Last Admin: 12/10/16 21:39 Dose: 20 mg Potassium Chloride 20 meq/ (Sodium Chloride) 1,010 mls @ 100 mls/hr IV .Q10H6M [facility] Last Admin: 12/10/16 17:25 Dose: 100 mls/hr Ketorolac Tromethamine (Toradol) 30 mg IVP Q6 PRN PRN Reason: Pain, severe (8-10) Levothyroxine Sodium (Synthroid) 25 mcg PO 0600 [facility] PRN Reason: Protocol Last Admin: 12/10/16 05:27 Dose: 25 mcg Lisinopril (Zestril) 10 mg PO DAILY [facility] PRN Reason: Protocol Last Admin: 12/10/16 09:56 Dose: 10 mg Multivitamins/Minerals (Therapeutic-M Tab) 1 tab PO DAILY [facility] PRN Reason: Protocol Last Admin: 12/10/16 09:57 Dose: 1 tab Ondansetron HCl (Zofran Inj) 4 mg IVP Q4H PRN; Protocol PRN Reason: Nausea/Vomiting Potassium Chloride (K-Dur 20 Meq Er Tab) 40 meq PO 0800 [facility] PRN Reason: Protocol Last Admin: 12/10/16 07:57 Dose: 40 meq Tramadol HCl (Ultram) 50 mg PO Q6 PRN PRN Reason: Pain, moderate (4-7) Last Admin: 12/10/16 21:40 Dose: 50 mg Zolpidem Tartrate (Ambien) 5 mg PO HS PRN; Protocol PRN Reason: Insomnia Last Admin: 12/09/16 01:15 Dose: 5 mg - Labs Labs: 12/09/16 05:30 12/09/16 05:30 - Constitutional Appears: Well - Head Exam Head Exam: ATRAUMATIC, NORMAL INSPECTION, NORMOCEPHALIC - Eye Exam Eye Exam: EOMI, Normal appearance, PERRL Pupil Exam: NORMAL ACCOMODATION, PERRL - ENT Exam ENT Exam: Mucous Membranes Moist, Normal Exam - Neck Exam Neck Exam: Full ROM, Normal Inspection. absent: Lymphadenopathy - Respiratory Exam Respiratory Exam: Clear to Ausculation Bilateral, NORMAL BREATHING PATTERN - Cardiovascular Exam Cardiovascular Exam: REGULAR RHYTHM, +S1, +S2. absent: Murmur - GI/Abdominal Exam GI & Abdominal Exam: Soft, Normal Bowel Sounds. absent: Tenderness - Rectal Exam Rectal Exam: NORMAL INSPECTION - Exam Exam: Circumcision, NORMAL INSPECTION External exam: NORMAL EXTERNAL EXAM Speculum exam: NORMAL SPECULUM EXAM Bimanual exam: NORMAL BIMANUAL EXAM - Extremities Exam Extremities Exam: Full ROM, Normal Capillary Refill, Normal Inspection. absent : Joint Swelling, Pedal Edema - Back Exam Back Exam: NORMAL INSPECTION - Neurological Exam Neurological Exam: Alert, Awake, CN II-XII Intact, Normal Gait, Oriented x3 - Psychiatric Exam Psychiatric exam: Normal Affect, Normal Mood - Skin Skin Exam: Dry, Intact, Normal Color, Warm Assessment and Plan (1) Hernia Status: Acute - Assessment and Plan (Free Text) Assessment: S/P SX Plan: OFF OF ABX
[2016-12-11] MEDS: Albuterol-Ipratrop 3 mg / 0.5 (3 ml) UD IH SCH ×3 (01:27→13:34)
[2016-12-11] MEDS ORDERED: Enoxaparin 40 mg Syringe SC SCH (06:00)
[2016-12-11] MEDS: Levothyroxine 25 MCG TAB PO SCH (06:11)
[2016-12-11 07:06] LABS: BLOOD UREA NITROGEN 15 mg/dL (7-21); CALCIUM 8.2 mg/dL (8.4-10.5); CARBON DIOXIDE 23 mmol/L (21-33); CHLORIDE 96 mmol/L (98-107); GFR AFRICAN-AMERICAN > 60; GLUCOSE,RANDOM 124 mg/dL (70-110); MEAN CELL VOLUME 87.8 fL (80.0-105.0); MEAN CORPUSCULAR HEMOGLOBIN 30.7 pg (25.0-35.0); MEAN PLATELET VOLUME 8.7 fl (7.0-11.0); POTASSIUM 4.8 mmol/L (3.6-5.0); RED CELL DISTRIBUTION WIDTH 13.4 % (11.5-14.5); SODIUM 127 mmol/L (132-148); WHITE BLOOD COUNT 9.4 10^3/ul (4.5-11.0)
[2016-12-11] MEDS: Potassium Chloride 20 mEq ER Tab PO SCH (10:08)
[2016-12-11] MEDS: Multivitamin With Minerals Tab PO SCH (10:10)
[2016-12-11 10:16] VITALS: BP 138/73; PULSE 88
[2016-12-11 11:55] VITALS: RESP 20; TEMP 98.3
--- NOTE | 2016-12-11 19:24 | CP.PCM.PN ---
Subjective - Date & Time of Evaluation Date of Evaluation: 12/11/16 Time of Evaluation: 07:10 - Subjective Subjective: weakness Objective - Vital Signs/Intake and Output Vital Signs (last 24 hours): Temp Pulse Resp BP Pulse Ox 98.3 F 88 20 138/73 96 12/11/16 10:00 12/11/16 10:09 12/11/16 10:00 12/11/16 10:09 12/11/16 10:00 - Labs Labs: 12/11/16 06:30 12/11/16 06:30 - Constitutional Appears: Well - Head Exam Head Exam: ATRAUMATIC, NORMAL INSPECTION, NORMOCEPHALIC - Eye Exam Eye Exam: EOMI, Normal appearance, PERRL Pupil Exam: NORMAL ACCOMODATION, PERRL - ENT Exam ENT Exam: Mucous Membranes Moist, Normal Exam - Neck Exam Neck Exam: Full ROM, Normal Inspection. absent: Lymphadenopathy - Respiratory Exam Respiratory Exam: Clear to Ausculation Bilateral, NORMAL BREATHING PATTERN - Cardiovascular Exam Cardiovascular Exam: REGULAR RHYTHM, +S1, +S2. absent: Murmur - GI/Abdominal Exam GI & Abdominal Exam: Soft, Normal Bowel Sounds. absent: Tenderness - Rectal Exam Rectal Exam: NORMAL INSPECTION - Exam Exam: Circumcision, NORMAL INSPECTION External exam: NORMAL EXTERNAL EXAM Speculum exam: NORMAL SPECULUM EXAM Bimanual exam: NORMAL BIMANUAL EXAM - Extremities Exam Extremities Exam: Full ROM, Normal Capillary Refill, Normal Inspection. absent : Joint Swelling, Pedal Edema - Back Exam Back Exam: NORMAL INSPECTION - Neurological Exam Neurological Exam: Alert, Awake, CN II-XII Intact, Normal Gait, Oriented x3 - Psychiatric Exam Psychiatric exam: Normal Affect, Normal Mood - Skin Skin Exam: Dry, Intact, Normal Color, Warm Assessment and Plan (1) Hernia Status: Acute - Assessment and Plan (Free Text) Assessment: s/p sx off of abx Plan: at risk of nosocomial infections
== END 2016-12-11 15:20 | DRG 945 ==
LOC: TRCU 16:22
PROVIDERS: ADMIT Internal Medicine; ATTEND Internal Medicine
PROC: F07Z9FZ Gait Training/Functional Ambulation Treatment using Assistive, Adaptive, Supportive or Protective Equipment (ICD-10-PCS; principal; 2016-12-08)
PROC: F07Z5FZ Bed Mobility Treatment using Assistive, Adaptive, Supportive or Protective Equipment (ICD-10-PCS; 2016-12-08)
PROC: F07Z8ZZ Transfer Training Treatment (ICD-10-PCS; 2016-12-09)
PROC: F07L6YZ Therapeutic Exercise Treatment of Musculoskeletal System - Lower Back / Lower Extremity using Other Equipment (ICD-10-PCS; 2016-12-09)
PROC: F08Z1FZ Dressing Techniques Treatment using Assistive, Adaptive, Supportive or Protective Equipment (ICD-10-PCS; 2016-12-10)
PROC: F08Z2FZ Grooming/Personal Hygiene Treatment using Assistive, Adaptive, Supportive or Protective Equipment (ICD-10-PCS; 2016-12-10)
DX: T85.79XD Infection and inflammatory reaction due to other internal prosthetic devices, implants and grafts, subsequent encounter (principal); K63.2 Fistula of intestine; J44.9 Chronic obstructive pulmonary disease, unspecified; E87.1 Hypo-osmolality and hyponatremia; D64.9 Anemia, unspecified; E87.6 Hypokalemia; I25.10 Atherosclerotic heart disease of native coronary artery without angina pectoris; M19.90 Unspecified osteoarthritis, unspecified site; K57.90 Diverticulosis of intestine, part unspecified, without perforation or abscess without bleeding; I10 Essential (primary) hypertension; E78.00 Pure hypercholesterolemia, unspecified; B95.2 Enterococcus as the cause of diseases classified elsewhere; B96.4 Proteus (mirabilis) (morganii) as the cause of diseases classified elsewhere; E03.9 Hypothyroidism, unspecified; Z95.5 Presence of coronary angioplasty implant and graft

== ENCOUNTER 2016-12-23 20:35 | Inpatient (IN) | payer MEDICARE, MEDICAID ==
--- NOTE | 2016-12-23 21:26 | ED PDOC ---
Arrival/HPI - General Chief Complaint: Seizure Time Seen by Provider: 12/23/16 20:59 Historian: Patient - History of Present Illness Narrative History of Present Illness (Text): 12/23/16 21:20 Gabriela Page is a 81 year old male, with a history of hypertension, diabetes, history of mesh placement, CAD with stents, and partial colectomy, presents to the emergency department from group home for evaluation of seizures. According to family, patient experienced 2 episodes of seizure at 3 pm and an hour prior to arrival today. Currently patient is complaining of a slight headache and abdominal pain. Family also informs that patient has had decreased appetite and weight loss following recent surgery. Patient with no history of seizures. Denies any fever, chills, dizziness, chest pain, shortness of breath, nausea, vomiting, diarrhea, or any other complaints at this time. PMD: Dr. Ramirez Time/Duration: Other (Today ) Activities at Onset: Light Context: Other (Intermediate ) Past Medical History - Provider Review Nursing Documentation Reviewed: Yes - Infectious Disease Hx of Infectious Diseases: None - Tetanus Immunization Tetanus Immunization: Unknown - Cardiac Hx Cardiac Disorders: Yes (CAD, Stents x2) - Pulmonary Hx Respiratory Disorders: No - Neurological Hx Neurological Disorder: No - HEENT Hx Cataracts: Yes (b/l sx) - Renal Hx Kidney Stones: No - Endocrine/Metabolic Hx Hypothyroidism: Yes - Hematological/Oncological Hx Blood Transfusions: No - Integumentary Other/Comment: ble skin discoloration, llq abd ddressings x2 dry and intact over i&d site - Musculoskeletal/Rheumatological Hx Falls: No - Gastrointestinal Hx Gastrointestinal Disorders: Yes (hiatal hernia, gi bleed) - Genitourinary/Gynecological Hx Reproductive Disorders: No - Psychiatric Hx Psychophysiologic Disorder: No Hx Substance Use: No - Surgical History Hx Coronary Stent: Yes (x2) Other/Comment: left inguinal hernia sx with mesh, abcess removed and I&d 11/18/16 infected mesh removed, Left inguinal fistula - Anesthesia Hx Anesthesia Reactions: No Hx Malignant Hyperthermia: No - Suicidal Assessment Feels Threatened In Home Enviroment: No Family/Social History - Physician Review Nursing Documentation Reviewed: Yes Family/Social History: No Known Family HX Smoking Status: Never Smoked Hx Alcohol Use: No Hx Substance Use: No Hx Substance Use Treatment: No Allergies/Home Meds Allergies/Adverse Reactions: Allergies No Known Allergies Allergy (Verified 12/23/16 21:07) Home Medications: Home Meds Medication Instructions Recorded Confirmed Lisinopril [Zestril] 10 mg PO DAILY 12/18/15 12/24/16 Meloxicam [Mobic] 7.5 mg PO DAILY 11/30/16 12/23/16 Multivit,Iron,Min 5/Folic Acid 1 each PO DAILY 11/30/16 12/24/16 [Strovite Forte Caplet] Ldlha-4-Yzjy Ethyl Esters [OMEGA 3] 500 mg PO BID 11/30/16 12/23/16 Ranitidine HCl [Sunmark Acid 150 mg PO DAILY 11/30/16 12/23/16 [employer] Representative] amLODIPine [Norvasc] 5 mg PO DAILY 11/30/16 12/24/16 Acetaminophen [Pain Relief] 2 tab PO Q4H PRN 12/24/16 12/24/16 Albuterol/Ipratropium [Duoneb 3 1 inh NEB Q6H 12/24/16 12/24/16 mg/0.5 mg (3 ml) UD] Atorvastatin [Lipitor] 20 mg PO DAILY 12/24/16 12/24/16 Enoxaparin [Lovenox] 40 mg SQ DAILY 12/24/16 12/24/16 Ergocalciferol (Vitamin D2) 1 tab PO Fri12/24/16 12/24/16 [Vitamin D2] Zolpidem [Ambien] 5 mg PO HS 12/24/16 12/24/16 cloNIDine 0.1 mg/24 hr [catapres 1 tdm TD FRI 12/24/16 12/24/16 TTS1 0.1 mg/24 hr] traMADol [Ultram] 50 mg PO Q6H PRN 12/24/16 12/24/16 Review of Systems - Physician Review All systems were reviewed & negative as marked: Yes - Review of Systems Constitutional: Normal. absent: Fatigue, Fevers Respiratory: absent: SOB, Cough, Sputum Cardiovascular: absent: Chest Pain, Palpitations Gastrointestinal: Abdominal Pain. absent: Constipation, Diarrhea, Nausea, Vomiting Neurological: Headache (slight headache ), Seizure Psychiatric: Normal Physical Exam Vital Signs Reviewed: Yes Vital Signs Pulse Resp BP Pulse Ox 12/23/16 21:10 66 18 91/56 L 100 Temperature: Afebrile Blood Pressure: Normal Pulse: Regular Respiratory Rate: Normal Appearance: Positive for: Non-Toxic, Other (Emaciated ) Pain Distress: None Mental Status: Positive for: Alert and Oriented X 3 - Systems Exam Head: Present: Atraumatic, Normocephalic Pupils: Present: PERRL Conjunctiva: Present: Normal Mouth: Present: Moist Mucous Membranes Respiratory/Chest: Present: Clear to Auscultation, Good Air Exchange. No: Respiratory Distress, Accessory Muscle Use Cardiovascular: Present: Regular Rate and Rhythm, Normal S1, S2. No: Murmurs Abdomen: Present: Normal Bowel Sounds. No: Tenderness, Distention, Peritoneal Signs, Rebound, Guarding Upper Extremity: Present: Normal Inspection. No: Cyanosis, Edema Lower Extremity: Present: Normal Inspection. No: Edema Neurological: Present: GCS=15, CN II-XII Intact, Speech Normal, Motor Func Grossly Intact, Normal Sensory Function Skin: Present: Warm, Dry, Normal Color. No: Rashes Psychiatric: Present: Alert, Oriented x 3, Normal Insight, Normal Concentration Medical Decision Making ED Course and Treatment: 12/23/16 21:28 Impression: A 81 year old male who presents to the emergency department for evaluation of 2 episodes of seizure. Plan: -- CT Head -- EKG -- Labs -- Chest X-ray -- Blood Culture -- Urine Culture -- Reassess and disposition Progress Notes: 12/23/16 21:28 EKG reviewed by me: NSR @ 65 bpm. Normal axis. Normal interval. CT Head results reviewed: FINDINGS: Brain: No acute intracranial hemorrhage. Age-appropriate periventricular white matter disease. No edema. Bilateral lacunar infarcts are detected, left greater than right. Ventricles: Age-appropriate ventriculomegaly. Bones: No acute displaced fracture. Sinuses: Unremarkable as visualized. No acute sinusitis. Mastoid air cells: Unremarkable as visualized. No mastoid effusion. IMPRESSION: No acute intracranial hemorrhage, or suspicious mass effect 12/24/16 00:22 Case discussed with who is aware and agrees with the plan to admit patient to telemetry for seizure disorder. Accepts patient under her service with on neurology consult. Case discussed with who states that he will evaluate patient tomorrow morning at the hospital. - Lab Interpretations Microbiology Results: Microbiology Results 12/23/16 21:50 Blood-Venous Blood Culture - Preliminary NO GROWTH AFTER 3 DAYS 12/23/16 21:25 Blood-Venous Blood Culture - Preliminary NO GROWTH AFTER 3 DAYS 12/23/16 22:55 Urine,Clean Catch Urine Culture - Final No Growth (<1,000 CFU/ML) Lab Results: 12/23/16 21:50 12/23/16 21:50 Lab Results 12/23/16 23:56: Urine Color Yellow, Urine Appearance Clear, Urine pH 6.0, Ur Specific [place] 1.020, Urine Protein Trace H, Urine Glucose (UA) Negative, Urine Ketones Negative, Urine Blood Negative, Urine Nitrate Negative, Urine Bilirubin Negative, Urine Urobilinogen 0.2, Ur Leukocyte Esterase Negative, Urine RBC 0 - 2, Urine WBC 0 - 2, Ur Epithelial Cells 0 - 2 12/23/16 21:50: Sodium 124 L, Potassium 4.6, Chloride 89 L, Carbon Dioxide 25, Anion Gap 15, BUN 37 H, Creatinine 1.2, Est GFR ( Amer) > 60, Est GFR ( Non-Af Amer) 58, Random Glucose 124 H, Calcium 8.7, Total Bilirubin 0.6, AST 33 , ALT 38, Alkaline Phosphatase 91, Troponin I < 0.01, Total Protein 7.0, Albumin 3.2, Globulin 3.8, Albumin/Globulin Ratio 0.8 L 12/23/16 21:50: WBC 7.0 D, RBC 3.50, Hgb 10.6 L, Hct 30.7 L, MCV 87.7, MCH 30.3 , MCHC 34.5, RDW 13.4, Plt Count 613 H, MPV 9.1, Gran % 61.0, Lymph % (Auto) 28.6, Terry % (Auto) 8.4 H, Eos % (Auto) 1.4 L, Baso % (Auto) 0.6, Gran # 4.29, Lymph # 2.0, Terry # 0.6, Eos # 0.1, Baso # 0.04 I have reviewed the lab results: Yes - RAD Interpretation Radiology Orders: 12/23/16 21:29 HEAD W/O CONTRAST [CT] Stat 12/23/16 21:30 CHEST ONE VIEW [RAD] Stat Surgical Supervisor: Radiologist - EKG Interpretation Interpreted by ED Physician: Yes Type: 12 lead EKG - Medication Orders Current Medication Orders: Acetaminophen (Tylenol 325mg Tab) 650 mg PO Q6H PRN PRN Reason: Pain, Mild (1-3) Last Admin: 12/25/16 22:37 Dose: 650 mg Albuterol/Ipratropium (Duoneb 3 Mg/0.5 Mg (3 Ml) Ud) 3 ml INH Q6H [facility] Last Admin: 12/27/16 07:45 Dose: 3 ml Aspirin (Ecotrin) 81 mg PO DAILY [facility] Last Admin: 12/27/16 09:37 Dose: 81 mg Atorvastatin Calcium (Lipitor) 20 mg PO DAILY [facility] Last Admin: 12/27/16 09:38 Dose: 20 mg Clonidine HCl (Catapres Tts1 0.1 Mg/24 Hr) 1 patch TD FRI [facility] Enoxaparin Sodium (Lovenox) 40 mg SC DAILY [facility] PRN Reason: Protocol Last Admin: 12/27/16 09:37 Dose: 40 mg Ergocalciferol (Drisdol 50,000 Intl Units Cap) 1 cap PO Fr@1000 [facility] Last Admin: 12/27/16 09:38 Dose: 1 cap Famotidine (Pepcid) 20 mg PO DAILY [facility] Last Admin: 12/27/16 09:39 Dose: 20 mg Lactulose (Enulose) 30 gm PO DAILY [facility] Last Admin: 12/27/16 09:39 Dose: 30 gm Levothyroxine Sodium (Synthroid) 25 mcg PO 0600 [facility] Last Admin: 12/27/16 05:27 Dose: 25 mcg Lisinopril (Zestril) 10 mg PO DAILY [facility] Last Admin: 12/27/16 09:38 Dose: 10 mg Mupirocin (Bactroban Ointment) 0 gm TOP BID [facility] Last Admin: 12/27/16 09:39 Dose: 1 applic Non-Formulary Medication (Acetaminophen [Pain Relief]) 2 tab PO Q4H PRN PRN Reason: Pain, Mild (1-3) Non-Formulary Medication (Multivit,Iron,Min 5/Folic Acid [Strovite Forte Caplet] ) 1 each PO DAILY [facility] Last Admin: 12/26/16 11:42 Dose: Not Given Non-Admin Reason: Patient in Endo Comments: Medication not available from home. Non-Formulary Medication (Rhvdf-2-Yfwv Ethyl Esters [[place] 3]) 500 mg PO BID [facility] Last Admin: 12/26/16 17:14 Dose: 500 mg Polyethylene Glycol (Miralax) 17 gm PO BID [facility] Last Admin: 12/27/16 09:39 Dose: 17 gm Vitamin A (Vitamin A & D Oint Ud Foilpak) 1 ea TOP Q6H PRN PRN Reason: Dry skin Discontinued Medications Amlodipine Besylate (Norvasc) 5 mg PO DAILY [facility] Last Admin: 12/24/16 10:11 Dose: 5 mg Barium Sulfate (Readi-Cat 2) Confirm Administered Dose 900 ml PO .STK-MED ONE Stop: 12/25/16 09:19 Bisacodyl (Dulcolax) 10 mg RC ONCE ONE Stop: 12/24/16 18:12 Last Admin: 12/24/16 18:28 Dose: 10 mg Docusate Sodium (Colace) 100 mg PO BID [facility] Last Admin: 12/24/16 17:44 Dose: Home Med (*Refrigerator Open) Confirm Administered Dose 1 unit XX .STK-MED ONE Stop: 12/25/16 06:13 Sodium Chloride (Sodium Chloride 0.9%) 1,000 mls @ 80 mls/hr IV .[id number] [facility] Last Admin: 12/26/16 05:44 Dose: 80 mls/hr Sodium Chloride (Sodium Chloride 0.9%) 1,000 mls @ 100 mls/hr IV .Q10H [facility] Last Admin: 12/26/16 21:00 Dose: 100 mls/hr Lactulose (Enulose) 20 gm PO DAILY [facility] Last Admin: 12/24/16 10:10 Dose: 20 gm Lisinopril (Zestril) 10 mg PO DAILY [facility] Last Admin: 12/25/16 10:23 Dose: Not Given Non-Admin Reason: BP Parameters Not Met - Scribe Statement The provider has reviewed the documentation as recorded by the Ashley Canela Provider Attestation: Provider Scribe Attestation: All medical record entries made by the Scribe were at my direction and personally dictated by me. I have reviewed the chart and agree that the record accurately reflects my personal performance of the history, physical exam, medical decision making, and the department course for this patient. I have also personally directed, reviewed, and agree with the discharge instructions and disposition. Disposition/Present on Arrival - Present on Arrival Any Indicators Present on Arrival: No History of DVT/PE: No History of Uncontrolled Diabetes: No Urinary Catheter: No History of Decub. Ulcer: No History Surgical Site Infection Following: None - Disposition Have Diagnosis and Disposition been Completed?: Yes Diagnosis: Seizure Disposition: HOSPITALIZED Disposition Time: 00:25 Patient Problems: Current Active Problems Problem Status Onset Atypical syncope Acute CAD (coronary artery disease) Acute EMILE (obstructive sleep apnea) Acute Seizure Acute Acute constipation Resolved Condition: FAIR
[2016-12-23 22:24] LABS: BASO # 0.04 K/mm3 (0.0-2.0); BASO % 0.6 % (0.0-3.0); EOS # 0.1 (0.0-0.7); EOS % 1.4 % (1.5-5.0); GRAN # 4.29 (1.4-6.5); HEMOGLOBIN 10.6 gm/dL (14.0-18.0); LYMPH % 28.6 % (22.0-35.0); MEAN CELL VOLUME 87.7 fL (80.0-105.0); MEAN CORPUSCULAR HEMOGLOBIN 30.3 pg (25.0-35.0); MEAN CORPUSCULAR HGB CONC 34.5 g/dl (31.0-37.0); MEAN PLATELET VOLUME 9.1 fl (7.0-11.0); MONO # 0.6 (0.1-0.6); MONO % 8.4 % (1.0-6.0); PLATELET COUNT 613 10^3/uL (120.0-450.0); RED CELL DISTRIBUTION WIDTH 13.4 % (11.5-14.5)
[2016-12-23 22:33] LABS: ALB/GLOB RATIO 0.8 (1.1-1.8); ALBUMIN 3.2 g/dL (3.0-4.8); ALT/SGPT 38 U/L (7-56); AST/SGOT 33 U/L (15-59); BLOOD UREA NITROGEN 37 mg/dL (7-21); CALCIUM 8.7 mg/dL (8.4-10.5); GFR AFRICAN-AMERICAN > 60; GFR NON-AFRICAN AMERICAN 58
[2016-12-23 22:47] LABS: TROPONIN I < 0.01 ng/mL
--- NOTE | 2016-12-23 23:03 | CT ---
EXAM: CT Head Without Intravenous Contrast CLINICAL HISTORY: 81 years old, male; Pain; Other: Seizure TECHNIQUE: Axial computed tomography images of the head/brain without intravenous contrast. This CT exam was performed using one or more of the following dose reduction techniques: automated exposure control, adjustment of the mA and/or kV according to patient size, and/or use of iterative reconstruction technique. COMPARISON: No relevant prior studies available. FINDINGS: Brain: No acute intracranial hemorrhage. Age-appropriate periventricular white matter disease. No edema. Bilateral lacunar infarcts are detected, left greater than right. Ventricles: Age-appropriate ventriculomegaly. Bones: No acute displaced fracture. Sinuses: Unremarkable as visualized. No acute sinusitis. Mastoid air cells: Unremarkable as visualized. No mastoid effusion. IMPRESSION: No acute intracranial hemorrhage, or suspicious mass effect.
[2016-12-24 01:02] LABS: URINE BILIRUBIN NEGATIVE (NEGATIVE); URINE BLOOD NEGATIVE (NEGATIVE); URINE GLUCOSE (UA) NEGATIVE (NEGATIVE); URINE LEUKOCYTE ESTERASE NEGATIVE Leu/uL (NEGATIVE); URINE NITRATE NEGATIVE (NEGATIVE); URINE PROTEIN TRACE mg/dL (<30 mg/dL); URINE UROBILINOGEN 0.2 E.U./dL (<1 E.U./dL)
[2016-12-24 01:03] LABS: URINE APPEARANCE CLEAR (CLEAR); URINE COLOR YELLOW (YELLOW)
[2016-12-24 01:09] LABS: URINE EPITHELIAL CELLS 0 - 2 /hpf (0-5); URINE RBC 0 - 2 /hpf (0-2); URINE WBC 0 - 2 /hpf (0-6)
[2016-12-24] MEDS: Sodium Chloride 0.9% 1,000 ML IV SCH ×2 (02:21→17:45)
[2016-12-24 03:40] VITALS: BMI 14.8
--- NOTE | 2016-12-24 07:57 | RAD ---
PROCEDURE: CHEST RADIOGRAPH, 1 VIEW HISTORY: pain COMPARISON: 11/18/2016 FINDINGS: LUNGS: Clear. PLEURA: No pneumothorax or pleural fluid seen. CARDIOVASCULAR: Normal. OSSEOUS STRUCTURES: No significant abnormalities. VISUALIZED UPPER ABDOMEN: Normal. OTHER FINDINGS: None. IMPRESSION: No active disease.
[2016-12-24] MEDS ORDERED: Vitamins A & D Oint UD Foilpak TOP PRN (08:31)
[2016-12-24] MEDS ORDERED: ACETAMINOPHEN PO PRN (08:31)
[2016-12-24 09:06] LABS: HEMOGLOBIN 9.6 gm/dL (14.0-18.0); MEAN CELL VOLUME 87.5 fL (80.0-105.0); MEAN CORPUSCULAR HGB CONC 34.3 g/dl (31.0-37.0); RBC 3.2 10^6/uL (3.5-6.1); RED CELL DISTRIBUTION WIDTH 13.3 % (11.5-14.5); WHITE BLOOD COUNT 6.2 10^3/ul (4.5-11.0)
[2016-12-24 09:16] LABS: ALB/GLOB RATIO 0.8 (1.1-1.8); ALBUMIN 2.8 g/dL (3.0-4.8); ALT/SGPT 38 U/L (7-56); AST/SGOT 28 U/L (15-59); BLOOD UREA NITROGEN 32 mg/dL (7-21); CALCIUM 8.3 mg/dL (8.4-10.5); GFR AFRICAN-AMERICAN > 60; GFR NON-AFRICAN AMERICAN > 60; MAGNESIUM 2.1 mg/dL (1.7-2.2)
[2016-12-24] MEDS: Albuterol-Ipratrop 3 mg / 0.5 (3 ml) UD INH SCH ×3 (09:27→20:17)
[2016-12-24] MEDS: MULTIVIT IRON MIN PO SCH (10:03)
[2016-12-24] MEDS: Non Formulary Medication (Omega-3-Acid Ethyl Esters [Omega 3] 500 MG) PO SCH ×2 (10:03→17:44)
[2016-12-24] MEDS: FOLIC ACID PO SCH (10:03)
[2016-12-24] MEDS: [UNRECOGNIZED DRUG - OTHER] PO SCH (10:03)
[2016-12-24] MEDS: Enoxaparin 40 mg Syringe SC SCH (10:10)
--- NOTE | 2016-12-24 11:31 | CP.PCM.CON ---
<Georgina Yusuf - Last Filed: 12/24/16 16:03> History of Present Illness - History of Present Illness History of Present Illness: PGY2 neurology consult note for Dr Dhillon Reason for consult: seizure disorders. Patient is a 81 y/o with pmh of htn, DM, CAD with stents, recent surgery s/p partial colectomy sent from senior care for possible seizures. Patient is not aware of having any histories of seizures or stroke, and doesn't remember experiencing any seizures. Patient thinks he was brought in due to abdominal pain 2nd to his surgical incision. As per EMR and patient's nurse, while in the senior care, one of patient's daughter reported she noticed her dad was just staring at the ceiling, then the other daughter reported she noted the patient was shaking. residential staff didn't notice any seizure like activity. Patient is currently lying on the hospital bed, no acute distress, c/o abdominal pain around the incision site, denies headache, dizziness, lightheadedness. Patient denies cp or sob. PMH: As stated above PSH: S/P partial colectomy, cardiac stents Social: denies tobacco, alcohol or illicit drug use. Review of Systems - Review of Systems Review of Systems: As per HPI. Past Patient History - Infectious Disease Hx of Infectious Diseases: None - Tetanus Immunizations Tetanus Immunization: Unknown - Past Social History Smoking Status: Former Smoker Alcohol: None Drugs: Denies - CARDIAC Hx Cardiac Disorders: Yes (CAD, Stents x2) - PULMONARY Hx Respiratory Disorders: No - NEUROLOGICAL Hx Neurological Disorder: No - HEENT Hx Cataracts: Yes (b/l sx) - RENAL Hx Kidney Stones: No - ENDOCRINE/METABOLIC Hx Hypothyroidism: Yes - HEMATOLOGICAL/ONCOLOGICAL Other/Comment: vitamin d deficiency - INTEGUMENTARY Other/Comment: ble skin discoloration, llq abd ddressings x2 dry and intact over i&d site - MUSCULOSKELETAL/RHEUMATOLOGICAL Hx Falls: No - GASTROINTESTINAL Hx Gastrointestinal Disorders: Yes (hiatal hernia, gi bleed) - GENITOURINARY/GYNECOLOGICAL Hx Genitourinary Disorders: No - PSYCHIATRIC Hx Psychophysiologic Disorder: No Hx Substance Use: No - SURGICAL HISTORY Hx Coronary Stent: Yes (x2) Other/Comment: left inguinal hernia sx with mesh, abcess removed and I&d 11/18/16 infected mesh removed, Left inguinal fistula - ANESTHESIA Hx Anesthesia Reactions: No Hx Malignant Hyperthermia: No Meds Allergies/Adverse Reactions: Allergies Allergy/AdvReac Type Severity Reaction Status Date / Time No Known Allergies Allergy Verified 12/23/16 21:07 - Medications Medications: Current Medications Albuterol/Ipratropium (Duoneb 3 Mg/0.5 Mg (3 Ml) Ud) 3 ml INH Q6H [facility] Last Admin: 12/24/16 09:27 Dose: 3 ml Amlodipine Besylate (Norvasc) 5 mg PO DAILY [facility] Last Admin: 12/24/16 10:11 Dose: 5 mg Aspirin (Ecotrin) 81 mg PO DAILY [facility] Last Admin: 12/24/16 10:10 Dose: 81 mg Atorvastatin Calcium (Lipitor) 20 mg PO DAILY [facility] Last Admin: 12/24/16 10:10 Dose: 20 mg Clonidine HCl (Catapres Tts1 0.1 Mg/24 Hr) 1 patch TD FRI [facility] Docusate Sodium (Colace) 100 mg PO BID [facility] Last Admin: 12/24/16 10:09 Dose: 100 mg Enoxaparin Sodium (Lovenox) 40 mg SC DAILY [facility] PRN Reason: Protocol Last Admin: 12/24/16 10:10 Dose: 40 mg Ergocalciferol (Drisdol 50,000 Intl Units Cap) 1 cap PO Fr@1000 [facility] Famotidine (Pepcid) 20 mg PO DAILY [facility] Last Admin: 12/24/16 10:12 Dose: 20 mg Sodium Chloride (Sodium Chloride 0.9%) 1,000 mls @ 80 mls/hr IV .[id number] [facility] Last Admin: 12/24/16 02:21 Dose: 80 mls/hr Lactulose (Enulose) 20 gm PO DAILY [facility] Last Admin: 12/24/16 10:10 Dose: 20 gm Levothyroxine Sodium (Synthroid) 25 mcg PO 0600 [facility] Lisinopril (Zestril) 10 mg PO DAILY [facility] Last Admin: 12/24/16 10:12 Dose: 10 mg Mupirocin (Bactroban Ointment) 0 gm TOP BID [facility] Last Admin: 12/24/16 10:09 Dose: Not Given Non-Formulary Medication (Acetaminophen [Pain Relief]) 2 tab PO Q4H PRN PRN Reason: Pain, Mild (1-3) Non-Formulary Medication (Multivit,Iron,Min 5/Folic Acid [Strovite Forte Caplet] ) 1 each PO DAILY [facility] Last Admin: 12/24/16 10:03 Dose: Not Given Non-Formulary Medication (Ezrio-8-Kpxn Ethyl Esters [Warren 3]) 500 mg PO BID [facility] Last Admin: 12/24/16 10:03 Dose: Not Given Vitamin A (Vitamin A & D Oint Ud Foilpak) 1 ea TOP Q6H PRN PRN Reason: Dry skin Physical Exam - Constitutional Appears: No Acute Distress, Cachectic, Chronically Ill - Head Exam Head Exam: ATRAUMATIC, NORMAL INSPECTION, NORMOCEPHALIC - Eye Exam Eye Exam: EOMI, Normal appearance, PERRL Pupil Exam: NORMAL ACCOMODATION - ENT Exam ENT Exam: Mucous Membranes Dry - Neck Exam Neck exam: Positive for: Normal Inspection - Respiratory Exam Respiratory Exam: Clear to Auscultation Bilateral, NORMAL BREATHING PATTERN. absent: Rales, Rhonchi, Wheezes - Cardiovascular Exam Cardiovascular Exam: REGULAR RHYTHM, +S1, +S2 - GI/Abdominal Exam GI & Abdominal Exam: Normal Bowel Sounds, Soft, Tenderness - Extremities Exam Extremities exam: Positive for: normal inspection. Negative for: pedal edema - Back Exam Back exam: NORMAL INSPECTION - Neurological Exam Neurological exam: Alert, CN II-XII Intact, Oriented x3, Reflexes Normal Additional comments: Mental status: Patient is a&ox3, Attention, thought process and insight and judgment are appropriate. Speaking in full sentences. CNII-CNXII- Perrla, VFF by confrontation, EMOI, no nystagamus, no ptosis, sensation intact to light touch. [place] muscles strong symmetrically, no facial asymmetry. Tongue protrude midline, no atrophy or fasciculation. Sensory: fine touch intact, pp temperature, vibration sensations and proprioceptive functions intact. There is no evidence of extinction to DSS. Motor exam: b/l upper and LE 5/5 flexion and extension, no tremors and no muscle rigidity. Gait deferred. Reflex: deep tendon reflex were plus 2 with flexor plantar response on the LE. - Psychiatric Exam Psychiatric exam: Normal Affect, Normal Mood - Skin Skin Exam: Dry, Intact, Warm Results - Vital Signs Recent Vital Signs: Last Vital Signs Temp 97.6 F 12/24/16 05:45 Pulse 70 12/24/16 10:12 Resp 17 12/24/16 05:45 BP 106/56 L 12/24/16 10:12 Pulse Ox 99 12/24/16 05:45 - Labs Result Diagrams: 12/24/16 08:40 12/24/16 08:40 Labs: Laboratory Results - last 24 hr 12/24/16 12/24/16 12/24/16 08:40 08:40 08:40 WBC 6.2 RBC 3.20 L Hgb 9.6 L Hct 28.0 L MCV 87.5 MCH 30.0 MCHC 34.3 RDW 13.3 Plt Count 572 H MPV 9.0 Sodium 126 L Potassium 4.4 Chloride 94 L Carbon Dioxide 24 Anion Gap 12 BUN 32 H Creatinine 1.1 Est GFR ( Amer) > 60 Est GFR (Non-Af Amer) > 60 Random Glucose 125 H Calcium 8.3 L Phosphorus 3.6 Magnesium 2.1 Total Bilirubin 0.4 AST 28 ALT 38 Alkaline Phosphatase 89 Total Protein 6.5 Albumin 2.8 L Globulin 3.6 Albumin/Globulin Ratio 0.8 L TSH 3rd Generation 2.80 Assessment & Plan - Assessment and Plan (Free Text) Assessment: 81 y/o with pmh of htn, DM, CAD with stents, resent surgery s/p partial colectomy sent from senior care for possible seizures. - CT head with b/l lacunar infarct, left greater than right. Impression: questionable seizure 2nd to transient hypotension and dehydration. Plan: -EEG with b/l cerebral dysfunction, no seizure like activities. - Monitor and correct electrolytes accordingly, bringing sodium up slowly. - Keep SBP above 110. - No anti-epileptics at this time giving questionable provocation of seizures. - C/W present care, including asa and lipitor. - Thank you for consulting Dr Dhillon. Patient seen, examined, case discussed with Dr Dhillon. - Date & Time Date: 12/24/16 Time: 10:50 <Duarte Dhillon - Last Filed: 12/24/16 16:11> Meds - Medications Medications: Current Medications Albuterol/Ipratropium (Duoneb 3 Mg/0.5 Mg (3 Ml) Ud) 3 ml INH Q6H [facility] Last Admin: 12/24/16 13:21 Dose: 3 ml Amlodipine Besylate (Norvasc) 5 mg PO DAILY [facility] Last Admin: 12/24/16 10:11 Dose: 5 mg Aspirin (Ecotrin) 81 mg PO DAILY [facility] Last Admin: 12/24/16 10:10 Dose: 81 mg Atorvastatin Calcium (Lipitor) 20 mg PO DAILY [facility] Last Admin: 12/24/16 10:10 Dose: 20 mg Clonidine HCl (Catapres Tts1 0.1 Mg/24 Hr) 1 patch TD FRI [facility] Docusate Sodium (Colace) 100 mg PO BID [facility] Last Admin: 12/24/16 10:09 Dose: 100 mg Enoxaparin Sodium (Lovenox) 40 mg SC DAILY [facility] PRN Reason: Protocol Last Admin: 12/24/16 10:10 Dose: 40 mg Ergocalciferol (Drisdol 50,000 Intl Units Cap) 1 cap PO Fr@1000 [facility] Famotidine (Pepcid) 20 mg PO DAILY [facility] Last Admin: 12/24/16 10:12 Dose: 20 mg Sodium Chloride (Sodium Chloride 0.9%) 1,000 mls @ 80 mls/hr IV .[id number] [facility] Last Admin: 12/24/16 02:21 Dose: 80 mls/hr Lactulose (Enulose) 20 gm PO DAILY [facility] Last Admin: 12/24/16 10:10 Dose: 20 gm Levothyroxine Sodium (Synthroid) 25 mcg PO 0600 [facility] Lisinopril (Zestril) 10 mg PO DAILY [facility] Last Admin: 12/24/16 10:12 Dose: 10 mg Mupirocin (Bactroban Ointment) 0 gm TOP BID [facility] Last Admin: 12/24/16 10:09 Dose: Not Given Non-Formulary Medication (Acetaminophen [Pain Relief]) 2 tab PO Q4H PRN PRN Reason: Pain, Mild (1-3) Non-Formulary Medication (Multivit,Iron,Min 5/Folic Acid [Strovite Forte Caplet] ) 1 each PO DAILY [facility] Last Admin: 12/24/16 10:03 Dose: Not Given Non-Formulary Medication (Fzbwf-0-Bsvn Ethyl Esters [Warren 3]) 500 mg PO BID [facility] Last Admin: 12/24/16 10:03 Dose: Not Given Vitamin A (Vitamin A & D Oint Ud Foilpak) 1 ea TOP Q6H PRN PRN Reason: Dry skin Results - Vital Signs Recent Vital Signs: Last Vital Signs Temp 97.4 F L 12/24/16 11:43 Pulse 69 12/24/16 11:43 Resp 20 12/24/16 11:43 BP 111/60 12/24/16 11:43 Pulse Ox 99 12/24/16 05:45 - Labs Result Diagrams: 12/24/16 08:40 12/24/16 08:40 Labs: Laboratory Results - last 24 hr 12/24/16 12/24/16 12/24/16 08:40 08:40 08:40 WBC 6.2 RBC 3.20 L Hgb 9.6 L Hct 28.0 L MCV 87.5 MCH 30.0 MCHC 34.3 RDW 13.3 Plt Count 572 H MPV 9.0 Sodium 126 L Potassium 4.4 Chloride 94 L Carbon Dioxide 24 Anion Gap 12 BUN 32 H Creatinine 1.1 Est GFR ( Amer) > 60 Est GFR (Non-Af Amer) > 60 Random Glucose 125 H Calcium 8.3 L Phosphorus 3.6 Magnesium 2.1 Total Bilirubin 0.4 AST 28 ALT 38 Alkaline Phosphatase 89 Total Protein 6.5 Albumin 2.8 L Globulin 3.6 Albumin/Globulin Ratio 0.8 L TSH 3rd Generation 2.80 Attending/Attestation - Attestation I have personally seen and examined this patient.: Yes I have fully participated in the care of the patient.: Yes I have reviewed all pertinent clinical information: Yes
--- NOTE | 2016-12-24 12:40 | CARD ---
APPROVED REPORT EKG Measurement Heart [id number] <Conclusion> Normal sinus rhythm Normal ECG
--- NOTE | 2016-12-24 16:02 | CP.PCM.PN ---
Subjective - Date & Time of Evaluation Date of Evaluation: 12/24/16 Time of Evaluation: 15:00 - Subjective Subjective: EEG REPORT: CONDITION OF THIS RECORDING: DROWSY DIAGNOSIS: EVALUATE FOR SEIZURE MEDICATIONS:l REVIEWED BY NURSE'S RECONCILIATION INTERPRETATION: THIS IS A 16 CHANNEL INTERNATIONAL RECORDING. THE BACKEND OF THIS TRACING WAS COMPOSED OF 6-7 CYCLES PER SECOND. THERE WAS SMALL AMOUNT OF BETA ACTIVITY OF 16-20 CPS IN THE RECORDING AND INCREASE AMOUNT OF THETA ACTIVITY OF 5-7 CPS SEEN IN THIS TRACING. DROWSINESS WAS CHARACTERIZED BY MIXED BETA AND THETA ACTIVITIES. SLEEP WAS CHARACTERIZED BY VERTEX TRANSIENT WAVE, SLEEP SPINDLES, AND B/L SLOWING. PHOTIC STIMULATION SHOWED NO CHANGE IN THE TRACING. NO PAROXYSMAL ACTIVITY NOTED IN THIS RECORDING. EMG ARTIFICAT WAS SEEN. CONCLUSION: THIS IS AN ABNORMAL EEG SHOWING MILD B/L SLOWING THROUGHOUT THE RECORDING CONSISTENT WITH MILD B/L CEREBRAL DYSFUNCTION. NO SEIZURE ACTIVITY. Teresa RVIAS MD Objective - Vital Signs/Intake and Output Vital Signs (last 24 hours): Temp Pulse Resp BP Pulse Ox 97.4 F L 69 20 111/60 99 12/24/16 11:43 12/24/16 11:43 12/24/16 11:43 12/24/16 11:43 12/24/16 05:45 Intake and Output: 12/24/16 12/24/16 06:59 18:59 Intake Total 240 Output Total 100 Balance 140 - Medications Medications: Current Medications Albuterol/Ipratropium (Duoneb 3 Mg/0.5 Mg (3 Ml) Ud) 3 ml INH Q6H [facility] Last Admin: 12/24/16 13:21 Dose: 3 ml Amlodipine Besylate (Norvasc) 5 mg PO DAILY [facility] Last Admin: 12/24/16 10:11 Dose: 5 mg Aspirin (Ecotrin) 81 mg PO DAILY [facility] Last Admin: 12/24/16 10:10 Dose: 81 mg Atorvastatin Calcium (Lipitor) 20 mg PO DAILY [facility] Last Admin: 12/24/16 10:10 Dose: 20 mg Clonidine HCl (Catapres Tts1 0.1 Mg/24 Hr) 1 patch TD FRI [facility] Docusate Sodium (Colace) 100 mg PO BID [facility] Last Admin: 12/24/16 10:09 Dose: 100 mg Enoxaparin Sodium (Lovenox) 40 mg SC DAILY [facility] PRN Reason: Protocol Last Admin: 12/24/16 10:10 Dose: 40 mg Ergocalciferol (Drisdol 50,000 Intl Units Cap) 1 cap PO Fr@1000 [facility] Famotidine (Pepcid) 20 mg PO DAILY [facility] Last Admin: 12/24/16 10:12 Dose: 20 mg Sodium Chloride (Sodium Chloride 0.9%) 1,000 mls @ 80 mls/hr IV .[id number] [facility] Last Admin: 12/24/16 02:21 Dose: 80 mls/hr Lactulose (Enulose) 20 gm PO DAILY [facility] Last Admin: 12/24/16 10:10 Dose: 20 gm Levothyroxine Sodium (Synthroid) 25 mcg PO 0600 [facility] Lisinopril (Zestril) 10 mg PO DAILY [facility] Last Admin: 12/24/16 10:12 Dose: 10 mg Mupirocin (Bactroban Ointment) 0 gm TOP BID [facility] Last Admin: 12/24/16 10:09 Dose: Not Given Non-Formulary Medication (Acetaminophen [Pain Relief]) 2 tab PO Q4H PRN PRN Reason: Pain, Mild (1-3) Non-Formulary Medication (Multivit,Iron,Min 5/Folic Acid [Strovite Forte Caplet] ) 1 each PO DAILY [facility] Last Admin: 12/24/16 10:03 Dose: Not Given Non-Formulary Medication (Mmuof-8-Gbma Ethyl Esters [[place] 3]) 500 mg PO BID [facility] Last Admin: 12/24/16 10:03 Dose: Not Given Vitamin A (Vitamin A & D Oint Ud Foilpak) 1 ea TOP Q6H PRN PRN Reason: Dry skin - Labs Labs: 12/24/16 08:40 12/24/16 08:40
--- NOTE | 2016-12-24 18:51 | CP.PCM.HP ---
History of Present Illness - History of Present Illness History of Present Illness: Gabriela Page is a 81 year old male, my private pt with a history of hypertension, diabetes, history of mesh placement, CAD with stents, and partial colectomy, presents to the emergency department from senior care for evaluation of seizures. According to family, patient experienced 2 episodes of seizure at 3 pm and an hour prior to arrival today. Currently patient is complaining of a slight headache and abdominal pain. Family also informs that patient has had decreased appetite and weight loss following recent surgery. Patient with no history of seizures. Denies any fever, chills, dizziness, chest pain, shortness of breath, nausea, vomiting, diarrhea, or any other complaints at this time. as per pt , he dont have bm 3 dayes , no appetite . Present on Admission - Present on Admission Any Indicators Present on Admission: No Review of Systems - EENT Eyes: As Per HPI Ears: As Per HPI Nose/Mouth/Throat: As Per HPI - Cardiovascular Cardiovascular: As Per HPI - Respiratory Respiratory: As Per HPI - Gastrointestinal Gastrointestinal: As Per HPI - Genitourinary Genitourinary: As Per HPI - Integumentary Integumentary: As Per HPI - Neurological Neurological: As Per HPI - Psychiatric Psychiatric: As Per HPI - Endocrine Endocrine: As Per HPI - Hematologic/Lymphatic Hematologic: As Per HPI Past Patient History - Infectious Disease Hx of Infectious Diseases: None - Tetanus Immunizations Tetanus Immunization: Unknown - Past Social History Smoking Status: Former Smoker Alcohol: None Drugs: Denies - CARDIAC Hx Cardiac Disorders: Yes (CAD, Stents x2) - PULMONARY Hx Respiratory Disorders: No - NEUROLOGICAL Hx Neurological Disorder: No - HEENT Hx Cataracts: Yes (b/l sx) - RENAL Hx Kidney Stones: No - ENDOCRINE/METABOLIC Hx Hypothyroidism: Yes - HEMATOLOGICAL/ONCOLOGICAL Other/Comment: vitamin d deficiency - INTEGUMENTARY Other/Comment: ble skin discoloration, llq abd ddressings x2 dry and intact over i&d site - MUSCULOSKELETAL/RHEUMATOLOGICAL Hx Falls: No - GASTROINTESTINAL Hx Gastrointestinal Disorders: Yes (hiatal hernia, gi bleed) - GENITOURINARY/GYNECOLOGICAL Hx Genitourinary Disorders: No - PSYCHIATRIC Hx Psychophysiologic Disorder: No Hx Substance Use: No - SURGICAL HISTORY Hx Coronary Stent: Yes (x2) Other/Comment: left inguinal hernia sx with mesh, abcess removed and I&d 11/18/16 infected mesh removed, Left inguinal fistula - ANESTHESIA Hx Anesthesia Reactions: No Hx Malignant Hyperthermia: No Meds Allergies/Adverse Reactions: Allergies Allergy/AdvReac Type Severity Reaction Status Date / Time No Known Allergies Allergy Verified 12/23/16 21:07 Physical Exam - Constitutional Appears: Well - Head Exam Head Exam: ATRAUMATIC, NORMAL INSPECTION, NORMOCEPHALIC - Eye Exam Eye Exam: EOMI, Normal appearance, PERRL Pupil Exam: NORMAL ACCOMODATION, PERRL - ENT Exam ENT Exam: Mucous Membranes Moist, Normal Exam - Neck Exam Neck exam: Positive for: Normal Inspection - Respiratory Exam Respiratory Exam: Clear to Auscultation Bilateral, NORMAL BREATHING PATTERN - Cardiovascular Exam Cardiovascular Exam: REGULAR RHYTHM - GI/Abdominal Exam GI & Abdominal Exam: Normal Bowel Sounds, Soft. absent: Tenderness - Rectal Exam Rectal Exam: NORMAL INSPECTION - Exam Exam: Circumcision, NORMAL INSPECTION External exam: NORMAL EXTERNAL EXAM Speculum exam: NORMAL SPECULUM EXAM Bimanual exam: NORMAL BIMANUAL EXAM - Extremities Exam Extremities exam: Positive for: normal inspection - Back Exam Back exam: NORMAL INSPECTION - Neurological Exam Neurological exam: Alert, CN II-XII Intact, Normal Gait, Oriented x3, Reflexes Normal - Psychiatric Exam Psychiatric exam: Normal Affect, Normal Mood - Skin Skin Exam: Dry, Intact, Normal Color, Warm Results - Vital Signs Recent Vital Signs: Last Vital Signs Temp 97.4 F L 12/24/16 11:43 Pulse 69 12/24/16 18:00 Resp 20 12/24/16 11:43 BP 111/60 12/24/16 11:43 Pulse Ox 99 12/24/16 05:45 - Labs Result Diagrams: 12/24/16 08:40 12/24/16 08:40 Labs: Laboratory Results - last 24 hr 12/24/16 12/24/16 12/24/16 08:40 08:40 08:40 WBC 6.2 RBC 3.20 L Hgb 9.6 L Hct 28.0 L MCV 87.5 MCH 30.0 MCHC 34.3 RDW 13.3 Plt Count 572 H MPV 9.0 Sodium 126 L Potassium 4.4 Chloride 94 L Carbon Dioxide 24 Anion Gap 12 BUN 32 H Creatinine 1.1 Est GFR ( Amer) > 60 Est GFR (Non-Af Amer) > 60 Random Glucose 125 H Calcium 8.3 L Phosphorus 3.6 Magnesium 2.1 Total Bilirubin 0.4 AST 28 ALT 38 Alkaline Phosphatase 89 Total Protein 6.5 Albumin 2.8 L Globulin 3.6 Albumin/Globulin Ratio 0.8 L TSH 3rd Generation 2.80 Assessment & Plan (1) Acute constipation Status: Acute (2) Atypical syncope Status: Acute (3) Seizure Status: Acute (4) Anemia Status: Acute (5) Hernia Status: Acute (6) Pain Status: Acute (7) Rectal bleeding Status: Acute - Assessment and Plan (Free Text) Assessment: 81 y/o with pmh of htn, DM, CAD with stents, resent surgery s/p partial colectomy sent from senior care for possible seizures. - CT head with b/l lacunar infarct, left greater than right. Impression: questionable seizure 2nd to transient hypotension and dehydration. Plan: -EEG with b/l cerebral dysfunction, no seizure like activities. - Monitor and correct electrolytes accordingly, bringing sodium up slowly. - Keep SBP above 110. - No anti-epileptics at this time giving questionable provocation of seizures. - C/W present care, including asa and lipitor. d/d with dr Farrar lactulose given Plan: neurology consult called Decision To Admit - . Bed Request Type: Telemetry
--- NOTE | 2016-12-24 22:07 | CP.PCM.CON ---
History of Present Illness - History of Present Illness History of Present Illness: 81 year old male, with history of hypertension, diabetes, history of abdominal abscess with infected mesh, s/p lap. with manisha colectomy, CAD with stents, suspected sleep apnea syndrome presents to the emergency department from [place] [facility] for evaluation of seizures. According to family, patient experienced 2 episodes of seizure at 3 pm and an hour prior to arrival today. Currently patient is complaining of a slight headache and abdominal pain. Family also informs that patient has had decreased appetite and weight loss following recent surgery. Patient with no history of seizures. Denies any fever , chills, dizziness, chest pain, shortness of breath, nausea, vomiting, diarrhea , or any other complaints at this time. as per pt , he dont have bm 3 dayes , no appetite . Review of Systems - Review of Systems Systems not reviewed;Unavailable: Acuity of Condition - Constitutional Constitutional: Fatigue, Lethargy, Malaise, Snoring, Sleep Apnea - EENT Nose/Mouth/Throat: absent: Nasal Congestion, Nasal Obstruction, Nasal Trauma, Dysphagia - Cardiovascular Cardiovascular: absent: Chest Pain, Diaphoresis, Edema - Respiratory Respiratory: Dyspnea, Snoring. absent: Hemoptysis - Gastrointestinal Gastrointestinal: Abdominal Pain, Bloating, Change in Bowel Habits, Cramping, Dysphagia - Musculoskeletal Musculoskeletal: absent: Back Pain, Joint Swelling - Neurological Neurological: Lack of Coordination - Psychiatric Psychiatric: Anxiety, Change in Appetite, Depression Past Patient History - Infectious Disease Hx of Infectious Diseases: None - Tetanus Immunizations Tetanus Immunization: Unknown - Past Social History Smoking Status: Former Smoker Alcohol: None Drugs: Denies - CARDIAC Hx Cardiac Disorders: Yes (CAD, Stents x2) - PULMONARY Hx Respiratory Disorders: No - NEUROLOGICAL Hx Neurological Disorder: No - HEENT Hx Cataracts: Yes (b/l sx) - RENAL Hx Kidney Stones: No - ENDOCRINE/METABOLIC Hx Hypothyroidism: Yes - HEMATOLOGICAL/ONCOLOGICAL Other/Comment: vitamin d deficiency - INTEGUMENTARY Other/Comment: ble skin discoloration, llq abd ddressings x2 dry and intact over i&d site - MUSCULOSKELETAL/RHEUMATOLOGICAL Hx Falls: No - GASTROINTESTINAL Hx Gastrointestinal Disorders: Yes (hiatal hernia, gi bleed) - GENITOURINARY/GYNECOLOGICAL Hx Genitourinary Disorders: No - PSYCHIATRIC Hx Psychophysiologic Disorder: No Hx Substance Use: No - SURGICAL HISTORY Hx Coronary Stent: Yes (x2) Other/Comment: left inguinal hernia sx with mesh, abcess removed and I&d 11/18/16 infected mesh removed, Left inguinal fistula - ANESTHESIA Hx Anesthesia Reactions: No Hx Malignant Hyperthermia: No Meds Allergies/Adverse Reactions: Allergies Allergy/AdvReac Type Severity Reaction Status Date / Time No Known Allergies Allergy Verified 12/23/16 21:07 - Medications Medications: Current Medications Albuterol/Ipratropium (Duoneb 3 Mg/0.5 Mg (3 Ml) Ud) 3 ml INH Q6H [facility] Last Admin: 12/24/16 20:17 Dose: Not Given Aspirin (Ecotrin) 81 mg PO DAILY [facility] Last Admin: 12/24/16 10:10 Dose: 81 mg Atorvastatin Calcium (Lipitor) 20 mg PO DAILY [facility] Last Admin: 12/24/16 10:10 Dose: 20 mg Clonidine HCl (Catapres Tts1 0.1 Mg/24 Hr) 1 patch TD FRI [facility] Enoxaparin Sodium (Lovenox) 40 mg SC DAILY [facility] PRN Reason: Protocol Last Admin: 12/24/16 10:10 Dose: 40 mg Ergocalciferol (Drisdol 50,000 Intl Units Cap) 1 cap PO Fr@1000 [facility] Famotidine (Pepcid) 20 mg PO DAILY [facility] Last Admin: 12/24/16 10:12 Dose: 20 mg Sodium Chloride (Sodium Chloride 0.9%) 1,000 mls @ 80 mls/hr IV .[id number] [facility] Last Admin: 12/24/16 17:45 Dose: 80 mls/hr Lactulose (Enulose) 30 gm PO DAILY [facility] Levothyroxine Sodium (Synthroid) 25 mcg PO 0600 [facility] Lisinopril (Zestril) 10 mg PO DAILY [facility] Last Admin: 12/24/16 10:12 Dose: 10 mg Mupirocin (Bactroban Ointment) 0 gm TOP BID [facility] Last Admin: 12/24/16 17:42 Dose: 1 applic Non-Formulary Medication (Acetaminophen [Pain Relief]) 2 tab PO Q4H PRN PRN Reason: Pain, Mild (1-3) Non-Formulary Medication (Multivit,Iron,Min 5/Folic Acid [Strovite Forte Caplet] ) 1 each PO DAILY [facility] Last Admin: 12/24/16 10:03 Dose: Not Given Non-Formulary Medication (Bvbrp-2-Dqxj Ethyl Esters [[place] 3]) 500 mg PO BID [facility] Last Admin: 12/24/16 17:44 Dose: Not Given Vitamin A (Vitamin A & D Oint Ud Foilpak) 1 ea TOP Q6H PRN PRN Reason: Dry skin Physical Exam - Constitutional Appears: No Acute Distress - Head Exam Head Exam: ATRAUMATIC, NORMAL INSPECTION, NORMOCEPHALIC - ENT Exam ENT Exam: Mucous Membranes Moist, Normal Exam Additional comments: small oral cavity - Respiratory Exam Respiratory Exam: Clear to Auscultation Bilateral, NORMAL BREATHING PATTERN - GI/Abdominal Exam GI & Abdominal Exam: Distended, Firm, Hyperactive Bowel Sounds Additional comments: constipated - Psychiatric Exam Psychiatric exam: Anxious, Depressed Results - Vital Signs Recent Vital Signs: Last Vital Signs Temp 98.5 F 12/24/16 18:00 Pulse 74 12/24/16 18:00 Resp 20 12/24/16 18:00 BP 118/64 12/24/16 18:00 Pulse Ox 99 12/24/16 05:45 - Labs Result Diagrams: 12/24/16 08:40 12/24/16 08:40 Labs: Laboratory Results - last 24 hr 12/24/16 12/24/16 12/24/16 08:40 08:40 08:40 WBC 6.2 RBC 3.20 L Hgb 9.6 L Hct 28.0 L MCV 87.5 MCH 30.0 MCHC 34.3 RDW 13.3 Plt Count 572 H MPV 9.0 Sodium 126 L Potassium 4.4 Chloride 94 L Carbon Dioxide 24 Anion Gap 12 BUN 32 H Creatinine 1.1 Est GFR ( Amer) > 60 Est GFR (Non-Af Amer) > 60 Random Glucose 125 H Calcium 8.3 L Phosphorus 3.6 Magnesium 2.1 Total Bilirubin 0.4 AST 28 ALT 38 Alkaline Phosphatase 89 Total Protein 6.5 Albumin 2.8 L Globulin 3.6 Albumin/Globulin Ratio 0.8 L TSH 3rd Generation 2.80 Assessment & Plan (1) EMILE (obstructive sleep apnea) Assessment and Plan: sleep apnea precaution, avoiv sedation, sleep study as out patient Status: Acute (2) Acute constipation Assessment and Plan: dulcolex now and stool sofner Status: Acute (3) Atypical syncope Assessment and Plan: monitor closley Status: Acute (4) Seizure Assessment and Plan: neurology followup Status: Acute (5) Anemia Assessment and Plan: gi source and chronic disease Status: Acute - Assessment and Plan (Free Text) Assessment: spoke to family at bed side, dulcolex being given, sleep apnea precaution
[2016-12-25] MEDS: Albuterol-Ipratrop 3 mg / 0.5 (3 ml) UD INH SCH ×5 (02:00→20:45)
[2016-12-25] MEDS: Levothyroxine 25 MCG TAB PO SCH (06:08)
--- NOTE | 2016-12-25 07:56 | CP.PCM.PN ---
<Georgina Yusuf - Last Filed: 12/25/16 12:30> Subjective - Date & Time of Evaluation Date of Evaluation: 12/25/16 Time of Evaluation: 07:45 - Subjective Subjective: PGY-2 Neurology progress not for Dr Dhillon Patient in no acute distress. No overnight acute events, no seizures noted by the nurse. Patient denies any seizure like activity. Patient states after having large bowl movement his abdominal pain has resolved. Objective - Vital Signs/Intake and Output Vital Signs (last 24 hours): Temp Pulse Resp BP Pulse Ox 97.4 F L 67 20 116/58 L 99 12/25/16 00:01 12/25/16 02:00 12/25/16 00:01 12/25/16 00:01 12/24/16 05:45 Intake and Output: 12/25/16 12/25/16 06:59 18:59 Intake Total 120 Output Total 700 Balance -580 - Medications Medications: Current Medications Albuterol/Ipratropium (Duoneb 3 Mg/0.5 Mg (3 Ml) Ud) 3 ml INH Q6H [facility] Last Admin: 12/25/16 02:00 Dose: Not Given Aspirin (Ecotrin) 81 mg PO DAILY [facility] Last Admin: 12/24/16 10:10 Dose: 81 mg Atorvastatin Calcium (Lipitor) 20 mg PO DAILY [facility] Last Admin: 12/24/16 10:10 Dose: 20 mg Clonidine HCl (Catapres Tts1 0.1 Mg/24 Hr) 1 patch TD FRI [facility] Enoxaparin Sodium (Lovenox) 40 mg SC DAILY [facility] PRN Reason: Protocol Last Admin: 12/24/16 10:10 Dose: 40 mg Ergocalciferol (Drisdol 50,000 Intl Units Cap) 1 cap PO Fr@1000 [facility] Famotidine (Pepcid) 20 mg PO DAILY [facility] Last Admin: 12/24/16 10:12 Dose: 20 mg Sodium Chloride (Sodium Chloride 0.9%) 1,000 mls @ 80 mls/hr IV .[id number] [facility] Last Admin: 12/24/16 17:45 Dose: 80 mls/hr Lactulose (Enulose) 30 gm PO DAILY [facility] Levothyroxine Sodium (Synthroid) 25 mcg PO 0600 [facility] Last Admin: 12/25/16 06:08 Dose: 25 mcg Lisinopril (Zestril) 10 mg PO DAILY [facility] Last Admin: 12/24/16 10:12 Dose: 10 mg Mupirocin (Bactroban Ointment) 0 gm TOP BID [facility] Last Admin: 12/24/16 17:42 Dose: 1 applic Non-Formulary Medication (Acetaminophen [Pain Relief]) 2 tab PO Q4H PRN PRN Reason: Pain, Mild (1-3) Non-Formulary Medication (Multivit,Iron,Min 5/Folic Acid [Strovite Forte Caplet] ) 1 each PO DAILY [facility] Last Admin: 12/24/16 10:03 Dose: Not Given Non-Formulary Medication (Ufxhg-7-Ztgh Ethyl Esters [[place] 3]) 500 mg PO BID [facility] Last Admin: 12/24/16 17:44 Dose: Not Given Vitamin A (Vitamin A & D Oint Ud Foilpak) 1 ea TOP Q6H PRN PRN Reason: Dry skin - Labs Labs: 12/24/16 08:40 12/24/16 08:40 - Constitutional Appears: No Acute Distress, Cachectic, Chronically Ill - Head Exam Head Exam: ATRAUMATIC, NORMAL INSPECTION, NORMOCEPHALIC - Eye Exam Eye Exam: EOMI, Normal appearance, PERRL Pupil Exam: NORMAL ACCOMODATION, PERRL - ENT Exam ENT Exam: Mucous Membranes Dry - Neck Exam Neck Exam: Normal Inspection - Respiratory Exam Respiratory Exam: Clear to Ausculation Bilateral, NORMAL BREATHING PATTERN. absent: Rales, Rhonchi, Wheezes, Respiratory Distress, Stridor - Cardiovascular Exam Cardiovascular Exam: REGULAR RHYTHM, +S1, +S2 - GI/Abdominal Exam GI & Abdominal Exam: Soft, Tenderness (incision site. ), Normal Bowel Sounds - Extremities Exam Extremities Exam: absent: Pedal Edema - Back Exam Back Exam: NORMAL INSPECTION - Neurological Exam Neurological Exam: Alert, Awake, CN II-XII Intact, Oriented x3 Neuro motor strength exam: Left Upper Extremity: 5, Right Upper Extremity: 5, Left Lower Extremity: 5, Right Lower Extremity: 5 Additional comments: Mental status: Patient is a&ox3, Attention, thought process and insight and judgment are appropriate. Speaking in full sentences. Motor exam: b/l upper and LE 5/5 flexion and extension, no tremors and no muscle rigidity. Gait deferred. Reflex: deep tendon reflex were plus 2 with flexor plantar response on the LE. - Psychiatric Exam Psychiatric exam: Normal Affect, Normal Mood - Skin Skin Exam: Dry, Warm Assessment and Plan - Assessment and Plan (Free Text) Assessment: 81 y/o with pmh of CAD, HTN, DM, recent inguinal repair presenting with abdominal pain, and questionable seizure like activity noted by patient's family. Questionable seizures likely 2nd cerebral hypoperfusion. Plan: - Patient still having episodes of hypotension 90/44 at 1028am - Correct and keep SBP above 110. - Address anemia - Sodium improving steadily and slowly. - PT eval and treat - Patient is stable neurologically. - Continue medical management. - Thank you for consulting Dr Dhillon, please consult again as needed. Patient seen, examined, and case discussed with Dr Dhillon. <Duarte Dhillon - Last Filed: 12/25/16 12:40> Objective - Vital Signs/Intake and Output Vital Signs (last 24 hours): Temp Pulse Resp BP Pulse Ox 99.0 F 70 20 111/62 99 12/25/16 12:00 12/25/16 12:00 12/25/16 12:00 12/25/16 12:00 12/24/16 05:45 Intake and Output: 12/25/16 12/25/16 06:59 18:59 Intake Total 120 Output Total 700 Balance -580 - Medications Medications: Current Medications Albuterol/Ipratropium (Duoneb 3 Mg/0.5 Mg (3 Ml) Ud) 3 ml INH Q6H [facility] Last Admin: 12/25/16 07:59 Dose: 3 ml Aspirin (Ecotrin) 81 mg PO DAILY [facility] Last Admin: 12/25/16 09:35 Dose: 81 mg Atorvastatin Calcium (Lipitor) 20 mg PO DAILY [facility] Last Admin: 12/25/16 09:35 Dose: 20 mg Clonidine HCl (Catapres Tts1 0.1 Mg/24 Hr) 1 patch TD FRI [facility] Enoxaparin Sodium (Lovenox) 40 mg SC DAILY [facility] PRN Reason: Protocol Last Admin: 12/25/16 09:36 Dose: 40 mg Ergocalciferol (Drisdol 50,000 Intl Units Cap) 1 cap PO Fr@1000 [facility] Famotidine (Pepcid) 20 mg PO DAILY [facility] Last Admin: 12/25/16 09:35 Dose: 20 mg Sodium Chloride (Sodium Chloride 0.9%) 1,000 mls @ 80 mls/hr IV .[id number] [facility] Last Admin: 12/24/16 17:45 Dose: 80 mls/hr Lactulose (Enulose) 30 gm PO DAILY [facility] Levothyroxine Sodium (Synthroid) 25 mcg PO 0600 [facility] Last Admin: 12/25/16 06:08 Dose: 25 mcg Lisinopril (Zestril) 10 mg PO DAILY [facility] Last Admin: 12/24/16 10:12 Dose: 10 mg Mupirocin (Bactroban Ointment) 0 gm TOP BID [facility] Last Admin: 12/25/16 09:35 Dose: 1 applic Non-Formulary Medication (Acetaminophen [Pain Relief]) 2 tab PO Q4H PRN PRN Reason: Pain, Mild (1-3) Non-Formulary Medication (Multivit,Iron,Min 5/Folic Acid [Strovite Forte Caplet] ) 1 each PO DAILY [facility] Last Admin: 12/24/16 10:03 Dose: Not Given Non-Formulary Medication (Swaag-3-Kwdu Ethyl Esters [[place] 3]) 500 mg PO BID [facility] Last Admin: 12/24/16 17:44 Dose: Not Given Vitamin A (Vitamin A & D Oint Ud Foilpak) 1 ea TOP Q6H PRN PRN Reason: Dry skin - Labs Labs: 12/25/16 10:30 12/25/16 10:30 Attending/Attestation - Attestation I have personally seen and examined this patient.: Yes I have fully participated in the care of the patient.: Yes I have reviewed all pertinent clinical information, including history, physical exam and plan: Yes
[2016-12-25] MEDS ORDERED: Barium Sulfate Susp 2.1% w/v, 2.0% w/w 450 mL Bottle PO ONE (09:18)
--- NOTE | 2016-12-25 09:27 | PQF GENQUE ---
This form is a permanent part of the medical record Clarification of your documentation is requested to better reflect the severity of illness and intensity of treatment of your patient. Indicators present Pt admitted w/ poss. seizure. Sodium 124 on admission, treated w/ IV .9 NS/ 80/hr. Please document Hyponatremia POA [] Specify: [] [] Specify: [] [] Specify: [] [] Specify: [] Location in the medical record that reflects the above clinical findings: x[] Admission bloodwork Treatment Provided: []IV .9NS/ 80/hr PHYSICIAN'S RESPONSE Based on your medical judgment of the clinical indicators outlined above please clarify the following: [] Practitioner response [] If unable to determine, please check the box, sign and date. Present On Admission (POA) Indicator: [x] Present at the time of admission [] Not present at the time of admission [] Clinically Undetermined In responding to this query, please exercise your independent professional judgment. The fact that a question is asked does not imply that any particular answer is desired or expected. Thank you for your clarification on this documentation. If you have any questions please call:[ ][phone] * Thank you, [ ]Shala Enriquez RN [employer] manager [employer]
[2016-12-25] MEDS: Enoxaparin 40 mg Syringe SC SCH (09:36)
[2016-12-25] MEDS: MULTIVIT IRON MIN PO SCH (10:00)
[2016-12-25] MEDS: Non Formulary Medication (Omega-3-Acid Ethyl Esters [Omega 3] 500 MG) PO SCH ×2 (10:00→18:22)
[2016-12-25] MEDS: FOLIC ACID PO SCH (10:00)
[2016-12-25] MEDS: [UNRECOGNIZED DRUG - OTHER] PO SCH (10:00)
[2016-12-25 10:52] LABS: BASO # 0.02 K/mm3 (0.0-2.0); BASO % 0.4 % (0.0-3.0); EOS # 0.1 (0.0-0.7); GRAN # 3.15 (1.4-6.5); GRAN % 64.3 % (50.0-68.0); HEMOGLOBIN 8.9 gm/dL (14.0-18.0); LYMPH # 1.2 (1.2-3.4); LYMPH % 25.1 % (22.0-35.0); MEAN CELL VOLUME 88.6 fL (80.0-105.0); MEAN CORPUSCULAR HEMOGLOBIN 29.8 pg (25.0-35.0); MEAN CORPUSCULAR HGB CONC 33.6 g/dl (31.0-37.0); MEAN PLATELET VOLUME 8.7 fl (7.0-11.0); MONO # 0.5 (0.1-0.6); MONO % 9.2 % (1.0-6.0); PLATELET COUNT 464 10^3/uL (120.0-450.0); RBC 2.99 10^6/uL (3.5-6.1); RED CELL DISTRIBUTION WIDTH 13.3 % (11.5-14.5); WHITE BLOOD COUNT 4.9 10^3/ul (4.5-11.0)
[2016-12-25 11:18] LABS: ALB/GLOB RATIO 0.7 (1.1-1.8); ALBUMIN 2.4 g/dL (3.0-4.8); ALT/SGPT 32 U/L (7-56); AST/SGOT 22 U/L (15-59); BLOOD UREA NITROGEN 20 mg/dL (7-21); CALCIUM 7.8 mg/dL (8.4-10.5); GFR AFRICAN-AMERICAN > 60; GFR NON-AFRICAN AMERICAN > 60; MAGNESIUM 1.9 mg/dL (1.7-2.2)
--- NOTE | 2016-12-25 11:30 | CP.PCM.CON ---
<Rhiannon Rm - Last Filed: 12/25/16 11:27> History of Present Illness - History of Present Illness History of Present Illness: Seen and examined at bedside, daughter at bedside. Request for consult is for abdominal pain. HPI: This is a 81 year old male with a history of DM, HTN, CAD with stents had recent abdominal surgery in November 2015 for Exp lap for lysis of adhesion, resection of colon and removal of infected mesh from inguinal hernia repair. He was recently discharged to [facility] for rehab and was sent for to hospital for seizure. He denies history of Seizures. Ct scan done and that was negative. But on admission the patient complain of abdominal pain most in the left quadrant. He did report no BM for 3 days, he was given dulcolax per rectum and he report bowel movement. The pain is better today. He never had problem with BM, his last colon was 11/2015, and found diverticulosis throughout, does not recall acute findings. No reports of overt GI bleeding. colon, IH. He also had complaints of problem with swallowing, and had poor appetite according to daughter, this has been going on for a week. This morning the daughter happily reports that he had appetite this morning and no complaints of problem swallowing, daughter states that he had a swallow test that he was recommended thick liquid. Last EGD was more that 5 years ago. PMH: diverticulosis, CAD w/ stents, HTN, DM PSH: recent Exp lap for lysis of adhesion, resection of colon and removal of infected, exploration of wound groin, hernia repair, cardiac stents Allergies: NKDA MEDS: reviewed as per AUG FH: noncontributory at this time ROS: systems reviewed with positive findings, see HPI Past Patient History - Infectious Disease Hx of Infectious Diseases: None - Tetanus Immunizations Tetanus Immunization: Unknown - Past Social History Smoking Status: Former Smoker Alcohol: None Drugs: Denies - CARDIAC Hx Cardiac Disorders: Yes (CAD, Stents x2) - PULMONARY Hx Respiratory Disorders: No - NEUROLOGICAL Hx Neurological Disorder: No - HEENT Hx Cataracts: Yes (b/l sx) - RENAL Hx Kidney Stones: No - ENDOCRINE/METABOLIC Hx Hypothyroidism: Yes - HEMATOLOGICAL/ONCOLOGICAL Other/Comment: vitamin d deficiency - INTEGUMENTARY Other/Comment: ble skin discoloration, llq abd ddressings x2 dry and intact over i&d site - MUSCULOSKELETAL/RHEUMATOLOGICAL Hx Falls: No - GASTROINTESTINAL Hx Gastrointestinal Disorders: Yes (hiatal hernia, gi bleed) - GENITOURINARY/GYNECOLOGICAL Hx Genitourinary Disorders: No - PSYCHIATRIC Hx Psychophysiologic Disorder: No Hx Substance Use: No - SURGICAL HISTORY Hx Coronary Stent: Yes (x2) Other/Comment: left inguinal hernia sx with mesh, abcess removed and I&d 11/18/16 infected mesh removed, Left inguinal fistula - ANESTHESIA Hx Anesthesia Reactions: No Hx Malignant Hyperthermia: No Meds Allergies/Adverse Reactions: Allergies Allergy/AdvReac Type Severity Reaction Status Date / Time No Known Allergies Allergy Verified 12/23/16 21:07 - Medications Medications: Current Medications Albuterol/Ipratropium (Duoneb 3 Mg/0.5 Mg (3 Ml) Ud) 3 ml INH Q6H [facility] Last Admin: 12/25/16 07:59 Dose: 3 ml Aspirin (Ecotrin) 81 mg PO DAILY [facility] Last Admin: 12/25/16 09:35 Dose: 81 mg Atorvastatin Calcium (Lipitor) 20 mg PO DAILY [facility] Last Admin: 12/25/16 09:35 Dose: 20 mg Clonidine HCl (Catapres Tts1 0.1 Mg/24 Hr) 1 patch TD FRI [facility] Enoxaparin Sodium (Lovenox) 40 mg SC DAILY [facility] PRN Reason: Protocol Last Admin: 12/25/16 09:36 Dose: 40 mg Ergocalciferol (Drisdol 50,000 Intl Units Cap) 1 cap PO Fr@1000 [facility] Famotidine (Pepcid) 20 mg PO DAILY [facility] Last Admin: 12/25/16 09:35 Dose: 20 mg Sodium Chloride (Sodium Chloride 0.9%) 1,000 mls @ 80 mls/hr IV .[id number] [facility] Last Admin: 12/24/16 17:45 Dose: 80 mls/hr Lactulose (Enulose) 30 gm PO DAILY [facility] Levothyroxine Sodium (Synthroid) 25 mcg PO 0600 [facility] Last Admin: 12/25/16 06:08 Dose: 25 mcg Lisinopril (Zestril) 10 mg PO DAILY [facility] Last Admin: 12/24/16 10:12 Dose: 10 mg Mupirocin (Bactroban Ointment) 0 gm TOP BID [facility] Last Admin: 12/25/16 09:35 Dose: 1 applic Non-Formulary Medication (Acetaminophen [Pain Relief]) 2 tab PO Q4H PRN PRN Reason: Pain, Mild (1-3) Non-Formulary Medication (Multivit,Iron,Min 5/Folic Acid [Strovite Forte Caplet] ) 1 each PO DAILY [facility] Last Admin: 12/24/16 10:03 Dose: Not Given Non-Formulary Medication (Oalbb-8-Amyi Ethyl Esters [[place] 3]) 500 mg PO BID [facility] Last Admin: 12/24/16 17:44 Dose: Not Given Vitamin A (Vitamin A & D Oint Ud Foilpak) 1 ea TOP Q6H PRN PRN Reason: Dry skin Physical Exam - Constitutional Appears: No Acute Distress, Cachectic - Head Exam Head Exam: NORMOCEPHALIC - Eye Exam Eye Exam: Normal appearance. absent: Scleral icterus - ENT Exam ENT Exam: Mucous Membranes Moist - Neck Exam Neck exam: Positive for: Normal Inspection - Respiratory Exam Respiratory Exam: Decreased Breath Sounds, NORMAL BREATHING PATTERN. absent: Rales, Wheezes, Respiratory Distress - Cardiovascular Exam Cardiovascular Exam: +S1, +S2 - GI/Abdominal Exam GI & Abdominal Exam: Normal Bowel Sounds, Soft. absent: Distended, Guarding, Organomegaly, Rebound, Tenderness Additional comments: surgical site dry and intact, has abdominal binder - Extremities Exam Extremities exam: Positive for: pedal pulses present. Negative for: calf tenderness, pedal edema - Neurological Exam Neurological exam: Alert, Oriented x3 - Skin Skin Exam: Dry, Warm Results - Vital Signs Recent Vital Signs: Last Vital Signs Temp 97.4 F L 12/25/16 00:01 Pulse 67 12/25/16 02:00 Resp 20 12/25/16 00:01 BP 90/44 L 12/25/16 10:28 Pulse Ox 99 12/24/16 05:45 - Labs Result Diagrams: 12/25/16 10:30 12/25/16 10:30 Labs: Laboratory Results - last 24 hr 12/25/16 10:30 WBC 4.9 D RBC 2.99 L Hgb 8.9 L Hct 26.5 L MCV 88.6 MCH 29.8 MCHC 33.6 RDW 13.3 Plt Count 464 H MPV 8.7 Gran % 64.3 Lymph % (Auto) 25.1 [place] % (Auto) 9.2 H Eos % (Auto) 1.0 L Baso % (Auto) 0.4 Gran # 3.15 Lymph # 1.2 [place] # 0.5 Eos # 0.1 Baso # 0.02 Assessment & Plan - Assessment and Plan (Free Text) Assessment: ASSESSMENT: Abdominal Pain, mainly left quaderant, maybe secondary to constipation, but also have h/o Diverticulosis, s/p surgery Consitpation s/p recent 11/2016Exp lap for lysis of adhesion, resection of colon and removal of infected Seizure CAD w/ stent HTN PLAN: request ct scan with only oral contrast on advanced bite size diet with nectar thick liquids on Lactulose continue GI prophylaxsis on Aspirin on Lovenox consider surgical evaluation Thank you for this consult and for allowing us to participate in your patient care, will make further recommendation based upon clinical course. Seen and discussed with Dr. Osorio. <Hernan Osorio V - Last Filed: 12/25/16 21:24> Meds - Medications Medications: Current Medications Acetaminophen (Tylenol 325mg Tab) 650 mg PO Q6H PRN PRN Reason: Pain, Mild (1-3) Albuterol/Ipratropium (Duoneb 3 Mg/0.5 Mg (3 Ml) Ud) 3 ml INH Q6H [facility] Last Admin: 12/25/16 19:27 Dose: 3 ml Aspirin (Ecotrin) 81 mg PO DAILY [facility] Last Admin: 12/25/16 09:35 Dose: 81 mg Atorvastatin Calcium (Lipitor) 20 mg PO DAILY [facility] Last Admin: 12/25/16 09:35 Dose: 20 mg Clonidine HCl (Catapres Tts1 0.1 Mg/24 Hr) 1 patch TD FRI [facility] Enoxaparin Sodium (Lovenox) 40 mg SC DAILY [facility] PRN Reason: Protocol Last Admin: 12/25/16 09:36 Dose: 40 mg Ergocalciferol (Drisdol 50,000 Intl Units Cap) 1 cap PO Fr@1000 [facility] Famotidine (Pepcid) 20 mg PO DAILY [facility] Last Admin: 12/25/16 09:35 Dose: 20 mg Sodium Chloride (Sodium Chloride 0.9%) 1,000 mls @ 80 mls/hr IV .[id number] [facility] Last Admin: 12/25/16 18:29 Dose: 80 mls/hr Lactulose (Enulose) 30 gm PO DAILY [facility] Last Admin: 12/25/16 10:00 Dose: 30 gm Levothyroxine Sodium (Synthroid) 25 mcg PO 0600 [facility] Last Admin: 12/25/16 06:08 Dose: 25 mcg Lisinopril (Zestril) 10 mg PO DAILY [facility] Last Admin: 12/25/16 10:23 Dose: Not Given Mupirocin (Bactroban Ointment) 0 gm TOP BID [facility] Last Admin: 12/25/16 19:14 Dose: 1 applic Non-Formulary Medication (Acetaminophen [Pain Relief]) 2 tab PO Q4H PRN PRN Reason: Pain, Mild (1-3) Non-Formulary Medication (Multivit,Iron,Min 5/Folic Acid [Strovite Forte Caplet] ) 1 each PO DAILY [facility] Last Admin: 12/25/16 10:00 Dose: 1 each Non-Formulary Medication (Jyzhv-1-Anax Ethyl Esters [[place] 3]) 500 mg PO BID [facility] Last Admin: 12/25/16 18:22 Dose: Not Given Vitamin A (Vitamin A & D Oint Ud Foilpak) 1 ea TOP Q6H PRN PRN Reason: Dry skin Results - Vital Signs Recent Vital Signs: Last Vital Signs Temp 99.0 F 12/25/16 12:00 Pulse 70 12/25/16 12:00 Resp 20 12/25/16 12:00 BP 111/62 12/25/16 12:00 Pulse Ox 99 12/24/16 05:45 - Labs Result Diagrams: 12/25/16 10:30 12/25/16 10:30 Labs: Laboratory Results - last 24 hr 12/25/16 12/25/16 12/25/16 10:30 10:30 10:30 WBC 4.9 D RBC 2.99 L Hgb 8.9 L Hct 26.5 L MCV 88.6 MCH 29.8 MCHC 33.6 RDW 13.3 Plt Count 464 H MPV 8.7 Gran % 64.3 Lymph % (Auto) 25.1 [place] % (Auto) 9.2 H Eos % (Auto) 1.0 L Baso % (Auto) 0.4 Gran # 3.15 Lymph # 1.2 [place] # 0.5 Eos # 0.1 Baso # 0.02 Sodium 128 L Potassium 4.3 Chloride 98 Carbon Dioxide 24 Anion Gap 10 BUN 20 Creatinine 1.0 Est GFR ( Amer) > 60 Est GFR (Non-Af Amer) > 60 Random Glucose 148 H Calcium 7.8 L Phosphorus 2.7 Magnesium 1.9 Iron TIBC % Saturation Transferrin 123.04 L Ferritin 162.0 Total Bilirubin 0.3 AST 22 ALT 32 Alkaline Phosphatase 71 Total Protein 5.7 L Albumin 2.4 L Globulin 3.3 Albumin/Globulin Ratio 0.7 L Vitamin B12 > 1000 H Folate > 20.0 12/25/16 10:30 WBC RBC Hgb Hct MCV MCH MCHC RDW Plt Count MPV Gran % Lymph % (Auto) [place] % (Auto) Eos % (Auto) Baso % (Auto) Gran # Lymph # [place] # Eos # Baso # Sodium Potassium Chloride Carbon Dioxide Anion Gap BUN Creatinine Est GFR ( Amer) Est GFR (Non-Af Amer) Random Glucose Calcium Phosphorus Magnesium Iron 12 L TIBC 189 L % Saturation 6 L Transferrin Ferritin Total Bilirubin AST ALT Alkaline Phosphatase Total Protein Albumin Globulin Albumin/Globulin Ratio Vitamin B12 Folate Attending/Attestation - Attestation I have personally seen and examined this patient.: Yes I have fully participated in the care of the patient.: Yes I have reviewed all pertinent clinical information: Yes Notes (Text): 12/25/16 21:16 this patient was seen and evaluated discussed with the nursing staff This 81-year-old care home resident was admitted with hyponatremia and seizure disorder status post colon resection and removal of mesh, status post diverticulitis Patient did have bowel movements today On examination appears cachectic ,history of weight loss ,reduced po intake, questionable history of dysphagia iron deficiency anemia iron saturation was only 7% patient would benefit from upper GI endoscopy to further evaluate. Would request esophagogram in a.m. CT scan was reviewed resolved acute diverticulitis: Used to be slightly dilated with liquid stool filled. We'll request stool for C. difficile 12/25/16 21:22
[2016-12-25 11:49] LABS: IRON 12 ug/dL (45-180)
[2016-12-25 11:58] LABS: % IRON SATURATION 6 % (20-55); TOTAL IRON BINDING CAPACITY 189 ug/dL (261-462)
--- NOTE | 2016-12-25 13:41 | CP.PCM.PN ---
Subjective - Date & Time of Evaluation Date of Evaluation: 12/25/16 Time of Evaluation: 12:00 - Subjective Subjective: 81 year old male, with history of hypertension, diabetes, history of abdominal abscess with infected mesh, s/p lap. with manisha colectomy, CAD with stents, suspected sleep apnea syndrome presents to the emergency department from alf for evaluation of seizures. According to family, patient experienced 2 episodes of seizure at 3 pm and an hour prior to arrival today. Currently patient is complaining of a slight headache and abdominal pain. Family also informs that patient has had decreased appetite and weight loss following recent surgery. Patient with no history of seizures. Denies any fever , chills, dizziness, chest pain, shortness of breath, nausea, vomiting, diarrhea , or any other complaints at this time. as per pt , he dont have bm 3 dayes , no appetite . 12/25/2016: feels better had BM with suppository, seen by GI, awaiting for CT abdomen Objective - Vital Signs/Intake and Output Vital Signs (last 24 hours): Temp Pulse Resp BP Pulse Ox 99.0 F 70 20 111/62 99 12/25/16 12:00 12/25/16 12:00 12/25/16 12:00 12/25/16 12:00 12/24/16 05:45 Intake and Output: 12/25/16 12/25/16 06:59 18:59 Intake Total 120 Output Total 700 Balance -580 - Medications Medications: Current Medications Albuterol/Ipratropium (Duoneb 3 Mg/0.5 Mg (3 Ml) Ud) 3 ml INH Q6H [facility] Last Admin: 12/25/16 07:59 Dose: 3 ml Aspirin (Ecotrin) 81 mg PO DAILY [facility] Last Admin: 12/25/16 09:35 Dose: 81 mg Atorvastatin Calcium (Lipitor) 20 mg PO DAILY [facility] Last Admin: 12/25/16 09:35 Dose: 20 mg Clonidine HCl (Catapres Tts1 0.1 Mg/24 Hr) 1 patch TD FRI [facility] Enoxaparin Sodium (Lovenox) 40 mg SC DAILY [facility] PRN Reason: Protocol Last Admin: 12/25/16 09:36 Dose: 40 mg Ergocalciferol (Drisdol 50,000 Intl Units Cap) 1 cap PO Fr@1000 [facility] Famotidine (Pepcid) 20 mg PO DAILY [facility] Last Admin: 12/25/16 09:35 Dose: 20 mg Sodium Chloride (Sodium Chloride 0.9%) 1,000 mls @ 80 mls/hr IV .[id number] [facility] Last Admin: 12/24/16 17:45 Dose: 80 mls/hr Lactulose (Enulose) 30 gm PO DAILY [facility] Levothyroxine Sodium (Synthroid) 25 mcg PO 0600 [facility] Last Admin: 12/25/16 06:08 Dose: 25 mcg Lisinopril (Zestril) 10 mg PO DAILY [facility] Last Admin: 12/24/16 10:12 Dose: 10 mg Mupirocin (Bactroban Ointment) 0 gm TOP BID [facility] Last Admin: 12/25/16 09:35 Dose: 1 applic Non-Formulary Medication (Acetaminophen [Pain Relief]) 2 tab PO Q4H PRN PRN Reason: Pain, Mild (1-3) Non-Formulary Medication (Multivit,Iron,Min 5/Folic Acid [Strovite Forte Caplet] ) 1 each PO DAILY [facility] Last Admin: 12/24/16 10:03 Dose: Not Given Non-Formulary Medication (Kxqfx-4-Muic Ethyl Esters [[place] 3]) 500 mg PO BID [facility] Last Admin: 12/24/16 17:44 Dose: Not Given Vitamin A (Vitamin A & D Oint Ud Foilpak) 1 ea TOP Q6H PRN PRN Reason: Dry skin - Labs Labs: 12/25/16 10:30 12/25/16 10:30 - Constitutional Appears: No Acute Distress - Head Exam Head Exam: ATRAUMATIC, NORMAL INSPECTION, NORMOCEPHALIC - ENT Exam ENT Exam: Mucous Membranes Moist, Normal Exam - Neck Exam Neck Exam: Full ROM, Normal Inspection. absent: Lymphadenopathy - Respiratory Exam Respiratory Exam: Clear to Ausculation Bilateral, NORMAL BREATHING PATTERN - Cardiovascular Exam Cardiovascular Exam: REGULAR RHYTHM, +S1, +S2. absent: Murmur - GI/Abdominal Exam GI & Abdominal Exam: Soft Additional comments: dressing on LLQ surgical site, - Extremities Exam Extremities Exam: Full ROM, Normal Capillary Refill, Normal Inspection. absent : Joint Swelling, Pedal Edema - Neurological Exam Neurological Exam: Alert, Awake, CN II-XII Intact, Normal Gait, Oriented x3 - Psychiatric Exam Psychiatric exam: Flat Affect - Skin Skin Exam: Dry, Intact, Normal Color, Warm Assessment and Plan (1) EMILE (obstructive sleep apnea) Assessment & Plan: sleep apnea precaution, avoid sedation Status: Acute (2) Acute constipation Assessment & Plan: responded well to suppository, being evaluated by GI Status: Acute (3) Atypical syncope Assessment & Plan: stable for now Status: Acute (4) Seizure Assessment & Plan: no mkore seizure since admission Status: Acute (5) Anemia Assessment & Plan: follow up H and H Status: Acute
[2016-12-25 17:40] LABS: FOLATE > 20.0 ng/mL
--- NOTE | 2016-12-25 17:43 | CP.PCM.PN ---
Subjective - Date & Time of Evaluation Date of Evaluation: 12/25/16 Time of Evaluation: 10:00 - Subjective Subjective: Patient in no acute distress. No overnight acute events, no seizures noted by the nurse. Patient denies any seizure like activity. Patient states after having large bowl movement his abdominal pain has resolved. , feeling better Objective - Vital Signs/Intake and Output Vital Signs (last 24 hours): Temp Pulse Resp BP Pulse Ox 99.0 F 70 20 111/62 99 12/25/16 12:00 12/25/16 12:00 12/25/16 12:00 12/25/16 12:00 12/24/16 05:45 Intake and Output: 12/25/16 12/25/16 06:59 18:59 Intake Total 120 480 Output Total 700 350 Balance -580 130 - Medications Medications: Current Medications Albuterol/Ipratropium (Duoneb 3 Mg/0.5 Mg (3 Ml) Ud) 3 ml INH Q6H [facility] Last Admin: 12/25/16 13:51 Dose: 3 ml Aspirin (Ecotrin) 81 mg PO DAILY [facility] Last Admin: 12/25/16 09:35 Dose: 81 mg Atorvastatin Calcium (Lipitor) 20 mg PO DAILY [facility] Last Admin: 12/25/16 09:35 Dose: 20 mg Clonidine HCl (Catapres Tts1 0.1 Mg/24 Hr) 1 patch TD FRI [facility] Enoxaparin Sodium (Lovenox) 40 mg SC DAILY [facility] PRN Reason: Protocol Last Admin: 12/25/16 09:36 Dose: 40 mg Ergocalciferol (Drisdol 50,000 Intl Units Cap) 1 cap PO Fr@1000 [facility] Famotidine (Pepcid) 20 mg PO DAILY [facility] Last Admin: 12/25/16 09:35 Dose: 20 mg Sodium Chloride (Sodium Chloride 0.9%) 1,000 mls @ 80 mls/hr IV .[id number] [facility] Last Admin: 12/24/16 17:45 Dose: 80 mls/hr Lactulose (Enulose) 30 gm PO DAILY [facility] Levothyroxine Sodium (Synthroid) 25 mcg PO 0600 [facility] Last Admin: 12/25/16 06:08 Dose: 25 mcg Lisinopril (Zestril) 10 mg PO DAILY [facility] Last Admin: 12/24/16 10:12 Dose: 10 mg Mupirocin (Bactroban Ointment) 0 gm TOP BID [facility] Last Admin: 12/25/16 09:35 Dose: 1 applic Non-Formulary Medication (Acetaminophen [Pain Relief]) 2 tab PO Q4H PRN PRN Reason: Pain, Mild (1-3) Non-Formulary Medication (Multivit,Iron,Min 5/Folic Acid [Strovite Forte Caplet] ) 1 each PO DAILY [facility] Last Admin: 12/24/16 10:03 Dose: Not Given Non-Formulary Medication (Xqudw-1-Wlia Ethyl Esters [[place] 3]) 500 mg PO BID [facility] Last Admin: 12/24/16 17:44 Dose: Not Given Vitamin A (Vitamin A & D Oint Ud Foilpak) 1 ea TOP Q6H PRN PRN Reason: Dry skin - Labs Labs: 12/25/16 10:30 12/25/16 10:30 - Constitutional Appears: Well - Head Exam Head Exam: ATRAUMATIC, NORMAL INSPECTION, NORMOCEPHALIC - Eye Exam Eye Exam: EOMI, Normal appearance, PERRL Pupil Exam: NORMAL ACCOMODATION, PERRL - ENT Exam ENT Exam: Mucous Membranes Moist, Normal Exam - Neck Exam Neck Exam: Full ROM, Normal Inspection. absent: Lymphadenopathy - Respiratory Exam Respiratory Exam: Clear to Ausculation Bilateral, NORMAL BREATHING PATTERN - Cardiovascular Exam Cardiovascular Exam: REGULAR RHYTHM, +S1, +S2. absent: Murmur - GI/Abdominal Exam GI & Abdominal Exam: Soft, Normal Bowel Sounds. absent: Tenderness - Back Exam Back Exam: NORMAL INSPECTION - Neurological Exam Neurological Exam: Alert, Awake, CN II-XII Intact, Normal Gait, Oriented x3 - Psychiatric Exam Psychiatric exam: Normal Affect, Normal Mood - Skin Skin Exam: Dry, Intact, Normal Color, Warm Assessment and Plan (1) Acute constipation Status: Acute (2) Atypical syncope Status: Acute (3) Seizure Status: Acute (4) Anemia Status: Acute (5) Hernia Status: Acute (6) Pain Status: Acute (7) Rectal bleeding Status: Acute - Assessment and Plan (Free Text) Assessment: 81 y/o with pmh of CAD, HTN, DM, recent inguinal repair presenting with abdominal pain, and questionable seizure like activity noted by patient's family. Questionable seizures likely 2nd cerebral hypoperfusion. Plan: - Patient still having episodes of hypotension 90/44 at 1028am , hold all bp meds . - Correct and keep SBP above 110. - anemia, s/p blood transfusion - Sodium improving steadily and slowly.call nephrology consult . - PT eval and treat - Patient is stable neurologically.as per neuro . - Continue medical management., d/d with [facility] ,constepation . gi is on the case , had good bm today , aakash , dr gay is on the case
[2016-12-25] MEDS: Sodium Chloride 0.9% 1,000 ML IV SCH (18:29)
--- NOTE | 2016-12-25 18:54 | CT ---
PROCEDURE: CT scan abdomen and pelvis dated 12/25/2016 HISTORY: Abdominal pain COMPARISON: Comparison made with CT scan abdomen pelvis 11/25/2016. TECHNIQUE: Contiguous helical/transaxial images of the abdomen and pelvis. Oral contrast was administered. No IV contrast given. Coronal and Sagittal reformats generated. Radiation dose: Total exam DLP = 220.82 mGy-cm. This CT exam was performed using one or more of the following dose reduction techniques: Automated exposure control, adjustment of the mA and/or kV according to patient size, and/or use of iterative reconstruction technique. . FINDINGS: LOWER THORAX: Patchy bilateral atelectatic and or infiltrate changes seen in both lower lung ghotra right greater than left including the lingular region. No effusion. No evidence of basilar pneumothorax. Heart size is within range of normal. LIVER: Liver exhibits normal size and attenuation pattern no obvious mass collection or calcification seen on this noncontrast exam. . GALLBLADDER AND BILE DUCTS: Gallbladder is poorly seen due to bowel related motion artifact and possibly some underdistention however no obvious intraluminal gallbladder calculi. No PANCREAS: Visualized portions of the pancreas appear atrophic and somewhat fatty replaced. SPLEEN: Spleen exhibits normal size and attenuation pattern without mass collection or calcification. ADRENALS: The adrenal glands are not well of visualized however do appear slightly enlarged KIDNEYS AND URETERS: The kidneys demonstrate relatively symmetric size. No evidence of obvious renal mass or collection. Tiny non obstructing calcification midpole left kidney. No evidence of hydronephrosis. BLADDER: The urinary bladder is physiologically distended. . REPRODUCTIVE: Prostate gland measures approximately 3.5 cm in transverse dimension. APPENDIX: Appendix is not seen with complete certainty. No obvious inflammatory changes right lower quadrant of the abdomen. BOWEL: Evaluation of bowel is limited due to the incomplete opacification. The stomach appears collapsed which presumably accounts for thick-walled appearance . The possibility of a gastritis or other intrinsic/invasive wall lesion cannot be excluded. The visualized loops of small bowel exhibit normal contour and caliber. No evidence of acute mechanical small bowel obstruction. . There is a large amount of stool, liquid and air within the entire the colon which is also appears mildly distended. No evidence to suggest obstruction. Previously noted extensive diverticulosis arising from the descending colon is less well seen on this exam compared the prior study. Apparent improvement in previously noted acute diverticulitis descending colon. PERITONEUM: Unremarkable. No fluid collection. No free air. LYMPH NODES: Unremarkable. No enlarged lymph nodes. VASCULATURE: No evidence of abdominal aortic aneurysm or iliac artery aneurysms. BONES: Minor multilevel degenerative spondylosis of the lumbar and to a lesser degree lower thoracic spine. OTHER FINDINGS: None. IMPRESSION: Patchy atelectasis and or infiltrate changes seen in both lower lung ghotra, right greater than left, including the lingular region. There is a large amount of stool, liquid and air within the entire the colon which is also appears mildly distended. No evidence to suggest obstruction. Previously noted extensive diverticulosis arising from the descending colon is less well seen on this exam compared the prior study. Apparent improvement in previously noted acute diverticulitis descending colon.
[2016-12-26] MEDS: Albuterol-Ipratrop 3 mg / 0.5 (3 ml) UD INH SCH ×5 (01:52→20:00)
[2016-12-26] MEDS: Levothyroxine 25 MCG TAB PO SCH (05:42)
[2016-12-26] MEDS: Sodium Chloride 0.9% 1,000 ML IV SCH ×3 (05:44→21:00)
--- NOTE | 2016-12-26 08:01 | CP.PCM.CON ---
History of Present Illness - History of Present Illness History of Present Illness: RENAL CONSULT NOTE 81 y/o with pmh of htn, DM, CAD is admitted from CT for evaluation of seizures. I have been consulted for acute hyponatremia. he denies any hx of kidney disease. denies any pain or sob or chest pain. he has had episodes of hyponatremia in prior admissions which have improved. Review of Systems - Review of Systems All systems: reviewed and no additional remarkable complaints except Past Patient History - Infectious Disease Hx of Infectious Diseases: None - Tetanus Immunizations Tetanus Immunization: Unknown - Past Social History Smoking Status: Former Smoker Alcohol: None Drugs: Denies - CARDIAC Hx Cardiac Disorders: Yes (CAD, Stents x2) - PULMONARY Hx Respiratory Disorders: No - NEUROLOGICAL Hx Neurological Disorder: No - HEENT Hx Cataracts: Yes (b/l sx) - RENAL Hx Kidney Stones: No - ENDOCRINE/METABOLIC Hx Hypothyroidism: Yes - HEMATOLOGICAL/ONCOLOGICAL Other/Comment: vitamin d deficiency - INTEGUMENTARY Other/Comment: ble skin discoloration, llq abd ddressings x2 dry and intact over i&d site - MUSCULOSKELETAL/RHEUMATOLOGICAL Hx Falls: No - GASTROINTESTINAL Hx Gastrointestinal Disorders: Yes (hiatal hernia, gi bleed) - GENITOURINARY/GYNECOLOGICAL Hx Genitourinary Disorders: No - PSYCHIATRIC Hx Psychophysiologic Disorder: No Hx Substance Use: No - SURGICAL HISTORY Hx Coronary Stent: Yes (x2) Other/Comment: left inguinal hernia sx with mesh, abcess removed and I&d 11/18/16 infected mesh removed, Left inguinal fistula - ANESTHESIA Hx Anesthesia Reactions: No Hx Malignant Hyperthermia: No Meds Allergies/Adverse Reactions: Allergies Allergy/AdvReac Type Severity Reaction Status Date / Time No Known Allergies Allergy Verified 12/23/16 21:07 - Medications Medications: Current Medications Acetaminophen (Tylenol 325mg Tab) 650 mg PO Q6H PRN PRN Reason: Pain, Mild (1-3) Last Admin: 12/25/16 22:37 Dose: 650 mg Albuterol/Ipratropium (Duoneb 3 Mg/0.5 Mg (3 Ml) Ud) 3 ml INH Q6H [facility] Last Admin: 12/26/16 07:38 Dose: 3 ml Aspirin (Ecotrin) 81 mg PO DAILY [facility] Last Admin: 12/25/16 09:35 Dose: 81 mg Atorvastatin Calcium (Lipitor) 20 mg PO DAILY [facility] Last Admin: 12/25/16 09:35 Dose: 20 mg Clonidine HCl (Catapres Tts1 0.1 Mg/24 Hr) 1 patch TD FRI [facility] Enoxaparin Sodium (Lovenox) 40 mg SC DAILY [facility] PRN Reason: Protocol Last Admin: 12/25/16 09:36 Dose: 40 mg Ergocalciferol (Drisdol 50,000 Intl Units Cap) 1 cap PO Fr@1000 ZACK Famotidine (Pepcid) 20 mg PO DAILY [facility] Last Admin: 12/25/16 09:35 Dose: 20 mg Sodium Chloride (Sodium Chloride 0.9%) 1,000 mls @ 80 mls/hr IV .[id number] [facility] Last Admin: 12/26/16 05:44 Dose: 80 mls/hr Lactulose (Enulose) 30 gm PO DAILY [facility] Last Admin: 12/25/16 10:00 Dose: 30 gm Levothyroxine Sodium (Synthroid) 25 mcg PO 0600 [facility] Last Admin: 12/26/16 05:42 Dose: 25 mcg Lisinopril (Zestril) 10 mg PO DAILY [facility] Last Admin: 12/25/16 10:23 Dose: Not Given Mupirocin (Bactroban Ointment) 0 gm TOP BID [facility] Last Admin: 12/25/16 19:14 Dose: 1 applic Non-Formulary Medication (Acetaminophen [Pain Relief]) 2 tab PO Q4H PRN PRN Reason: Pain, Mild (1-3) Non-Formulary Medication (Multivit,Iron,Min 5/Folic Acid [Strovite Forte Caplet] ) 1 each PO DAILY [facility] Last Admin: 12/25/16 10:00 Dose: 1 each Non-Formulary Medication ([id number]-7-[id number] Ethyl Esters [[place] 3]) 500 mg PO BID [facility] Last Admin: 12/25/16 18:22 Dose: Not Given Vitamin A (Vitamin A & D Oint Ud Foilpak) 1 ea TOP Q6H PRN PRN Reason: Dry skin Physical Exam - Constitutional Appears: Non-toxic, No Acute Distress - Head Exam Head Exam: NORMAL INSPECTION - Eye Exam Eye Exam: Normal appearance - ENT Exam ENT Exam: Mucous Membranes Moist - Neck Exam Neck exam: Positive for: Normal Inspection - Respiratory Exam Respiratory Exam: NORMAL BREATHING PATTERN - Cardiovascular Exam Cardiovascular Exam: +S1, +S2 - GI/Abdominal Exam GI & Abdominal Exam: Soft - Extremities Exam Extremities exam: Positive for: normal inspection - Neurological Exam Neurological exam: Alert - Psychiatric Exam Psychiatric exam: Flat Affect - Skin Skin Exam: Dry, Warm Results - Vital Signs Recent Vital Signs: Last Vital Signs Temp 98.3 F 12/26/16 06:00 Pulse 70 12/26/16 06:00 Resp 20 12/26/16 06:00 BP 112/56 L 12/26/16 06:00 Pulse Ox 96 12/26/16 06:00 - Labs Result Diagrams: 12/25/16 10:30 12/26/16 10:40 Labs: Laboratory Results - last 24 hr 12/25/16 12/25/16 12/25/16 10:30 10:30 10:30 WBC 4.9 D RBC 2.99 L Hgb 8.9 L Hct 26.5 L MCV 88.6 MCH 29.8 MCHC 33.6 RDW 13.3 Plt Count 464 H MPV 8.7 Gran % 64.3 Lymph % (Auto) 25.1 [place] % (Auto) 9.2 H Eos % (Auto) 1.0 L Baso % (Auto) 0.4 Gran # 3.15 Lymph # 1.2 [place] # 0.5 Eos # 0.1 Baso # 0.02 Sodium 128 L Potassium 4.3 Chloride 98 Carbon Dioxide 24 Anion Gap 10 BUN 20 Creatinine 1.0 Est GFR ( Amer) > 60 Est GFR (Non-Af Amer) > 60 Random Glucose 148 H Calcium 7.8 L Phosphorus 2.7 Magnesium 1.9 Iron TIBC % Saturation Transferrin 123.04 L Ferritin 162.0 Total Bilirubin 0.3 AST 22 ALT 32 Alkaline Phosphatase 71 Total Protein 5.7 L Albumin 2.4 L Globulin 3.3 Albumin/Globulin Ratio 0.7 L Vitamin B12 > 1000 H Folate > 20.0 12/25/16 10:30 WBC RBC Hgb Hct MCV MCH MCHC RDW Plt Count MPV Gran % Lymph % (Auto) [place] % (Auto) Eos % (Auto) Baso % (Auto) Gran # Lymph # [place] # Eos # Baso # Sodium Potassium Chloride Carbon Dioxide Anion Gap BUN Creatinine Est GFR ( Amer) Est GFR (Non-Af Amer) Random Glucose Calcium Phosphorus Magnesium Iron 12 L TIBC 189 L % Saturation 6 L Transferrin Ferritin Total Bilirubin AST ALT Alkaline Phosphatase Total Protein Albumin Globulin Albumin/Globulin Ratio Vitamin B12 Folate Assessment & Plan - Assessment and Plan (Free Text) Plan: acute on chronic recurrent hyponatremia with ?seizure at [place]/with htn and dm agree with iv NS, continue for now as sodium is improved with it i have ordered urine lytes, urine and serum osmolarity bp ok monitor I&Os seizure work up per primary team thank you for consult
[2016-12-26] MEDS: Enoxaparin 40 mg Syringe SC SCH (10:12)
[2016-12-26] MEDS: POLYETHYLENE GLYCOL 3350 17 GM/Dose PACKET PO SCH ×2 (10:12→18:27)
--- NOTE | 2016-12-26 10:18 | CP.PCM.PN ---
<Rhiannon Rm - Last Filed: 12/26/16 14:51> Subjective - Date & Time of Evaluation Date of Evaluation: 12/26/16 Time of Evaluation: 08:50 - Subjective Subjective: Seen and examined at bedside, family present. No BM reported last night, abdominal pain better. Ct scan report noted. Large amount stool, improvement of previously noted acute diverticulitis ascending colon. Still complain on occasion problem with swallowing. No reports of acute overnight events. Objective - Vital Signs/Intake and Output Vital Signs (last 24 hours): Temp Pulse Resp BP Pulse Ox 98.3 F 70 20 112/56 L 96 12/26/16 06:00 12/26/16 06:00 12/26/16 06:00 12/26/16 06:00 12/26/16 06:00 Intake and Output: 12/26/16 12/26/16 06:59 18:59 Intake Total 280 Output Total 300 Balance -20 - Medications Medications: Current Medications Acetaminophen (Tylenol 325mg Tab) 650 mg PO Q6H PRN PRN Reason: Pain, Mild (1-3) Last Admin: 12/25/16 22:37 Dose: 650 mg Albuterol/Ipratropium (Duoneb 3 Mg/0.5 Mg (3 Ml) Ud) 3 ml INH Q6H [facility] Last Admin: 12/26/16 07:38 Dose: 3 ml Aspirin (Ecotrin) 81 mg PO DAILY [facility] Last Admin: 12/25/16 09:35 Dose: 81 mg Atorvastatin Calcium (Lipitor) 20 mg PO DAILY [facility] Last Admin: 12/25/16 09:35 Dose: 20 mg Clonidine HCl (Catapres Tts1 0.1 Mg/24 Hr) 1 patch TD FRI [facility] Enoxaparin Sodium (Lovenox) 40 mg SC DAILY [facility] PRN Reason: Protocol Last Admin: 12/25/16 09:36 Dose: 40 mg Ergocalciferol (Drisdol 50,000 Intl Units Cap) 1 cap PO Fr@1000 ZACK Famotidine (Pepcid) 20 mg PO DAILY [facility] Last Admin: 12/25/16 09:35 Dose: 20 mg Sodium Chloride (Sodium Chloride 0.9%) 1,000 mls @ 80 mls/hr IV .[id number] [facility] Last Admin: 12/26/16 05:44 Dose: 80 mls/hr Lactulose (Enulose) 30 gm PO DAILY [facility] Last Admin: 12/25/16 10:00 Dose: 30 gm Levothyroxine Sodium (Synthroid) 25 mcg PO 0600 [facility] Last Admin: 12/26/16 05:42 Dose: 25 mcg Lisinopril (Zestril) 10 mg PO DAILY [facility] Mupirocin (Bactroban Ointment) 0 gm TOP BID [facility] Last Admin: 12/25/16 19:14 Dose: 1 applic Non-Formulary Medication (Acetaminophen [Pain Relief]) 2 tab PO Q4H PRN PRN Reason: Pain, Mild (1-3) Non-Formulary Medication (Multivit,Iron,Min 5/Folic Acid [Strovite Forte Caplet] ) 1 each PO DAILY [facility] Last Admin: 12/25/16 10:00 Dose: 1 each Non-Formulary Medication (Ipvmh-6-Vbsw Ethyl Esters [[place] 3]) 500 mg PO BID [facility] Last Admin: 12/25/16 18:22 Dose: Not Given Polyethylene Glycol (Miralax) 17 gm PO BID [facility] Vitamin A (Vitamin A & D Oint Ud Foilpak) 1 ea TOP Q6H PRN PRN Reason: Dry skin - Labs Labs: 12/25/16 10:30 12/25/16 10:30 - Constitutional Appears: No Acute Distress - Head Exam Head Exam: NORMOCEPHALIC - Eye Exam Eye Exam: Normal appearance. absent: Scleral icterus - ENT Exam ENT Exam: Mucous Membranes Moist - Neck Exam Neck Exam: Normal Inspection - Respiratory Exam Respiratory Exam: Respiratory Distress. absent: NORMAL BREATHING PATTERN - Cardiovascular Exam Cardiovascular Exam: +S1, +S2 - GI/Abdominal Exam GI & Abdominal Exam: Soft, Normal Bowel Sounds. absent: Guarding, Tenderness, Rebound - Extremities Exam Extremities Exam: absent: Calf Tenderness, Pedal Edema - Neurological Exam Neurological Exam: Alert, Awake, Oriented x3 - Skin Skin Exam: Dry, Warm Assessment and Plan - Assessment and Plan (Free Text) Assessment: ASSESSMENT: Abdominal Pain, mainly left quadrant, maybe secondary to constipation, but also have h/o Diverticulosis, s/p surgery:s/p ct scan: large amt of stool, improvement of previous noted acute diverticulitis in descending colon Constipation Hyponatremia, improved Dysphasia s/p recent 11/2016Exp lap for lysis of adhesion, resection of colon and removal of infected Seizure CAD w/ stent HTN PLAN: on advanced bite size diet with nectar thick liquids on Lactulose continue GI prophylaxsis on Aspirin on Lovenox on Miralax daily may benefit from EGD, for dysphagia and c/o wt. loss, will discuss with family Seen and discussed with Dr. Osorio. ADDENDUM: spoke to Nataliia, pt daughter at [phone], regarding possible EGD tomorrow, agree for procedure, will also speak to her family. <Hernan Osorio V - Last Filed: 12/27/16 00:25> Objective - Vital Signs/Intake and Output Vital Signs (last 24 hours): Temp Pulse Resp BP Pulse Ox 98 F 76 21 121/55 L 98 12/26/16 23:38 12/26/16 23:38 12/26/16 23:38 12/26/16 23:38 12/26/16 23:38 Intake and Output: 12/26/16 12/27/16 18:59 06:59 Intake Total 360 Output Total 600 Balance -240 - Medications Medications: Current Medications Acetaminophen (Tylenol 325mg Tab) 650 mg PO Q6H PRN PRN Reason: Pain, Mild (1-3) Last Admin: 12/25/16 22:37 Dose: 650 mg Albuterol/Ipratropium (Duoneb 3 Mg/0.5 Mg (3 Ml) Ud) 3 ml INH Q6H [facility] Last Admin: 12/26/16 13:25 Dose: 3 ml Aspirin (Ecotrin) 81 mg PO DAILY [facility] Last Admin: 12/26/16 10:12 Dose: 81 mg Atorvastatin Calcium (Lipitor) 20 mg PO DAILY [facility] Last Admin: 12/26/16 10:12 Dose: 20 mg Clonidine HCl (Catapres Tts1 0.1 Mg/24 Hr) 1 patch TD FRI [facility] Enoxaparin Sodium (Lovenox) 40 mg SC DAILY [facility] PRN Reason: Protocol Last Admin: 12/26/16 10:12 Dose: 40 mg Ergocalciferol (Drisdol 50,000 Intl Units Cap) 1 cap PO Fr@1000 ZACK Famotidine (Pepcid) 20 mg PO DAILY [facility] Last Admin: 12/26/16 10:12 Dose: 20 mg Sodium Chloride (Sodium Chloride 0.9%) 1,000 mls @ 100 mls/hr IV .Q10H [facility] Last Admin: 12/26/16 17:14 Dose: 100 mls/hr Lactulose (Enulose) 30 gm PO DAILY [facility] Last Admin: 12/26/16 10:12 Dose: 30 gm Levothyroxine Sodium (Synthroid) 25 mcg PO 0600 [facility] Last Admin: 12/26/16 05:42 Dose: 25 mcg Lisinopril (Zestril) 10 mg PO DAILY [facility] Last Admin: 12/26/16 11:43 Dose: Not Given Mupirocin (Bactroban Ointment) 0 gm TOP BID [facility] Last Admin: 12/26/16 17:14 Dose: 1 applic Non-Formulary Medication (Acetaminophen [Pain Relief]) 2 tab PO Q4H PRN PRN Reason: Pain, Mild (1-3) Non-Formulary Medication (Multivit,Iron,Min 5/Folic Acid [Strovite Forte Caplet] ) 1 each PO DAILY [facility] Last Admin: 12/26/16 11:42 Dose: Not Given Non-Formulary Medication (Gqsut-6-Vqtz Ethyl Esters [[place] 3]) 500 mg PO BID [facility] Last Admin: 12/26/16 17:14 Dose: 500 mg Polyethylene Glycol (Miralax) 17 gm PO BID [facility] Last Admin: 12/26/16 18:27 Dose: 17 gm Vitamin A (Vitamin A & D Oint Ud Foilpak) 1 ea TOP Q6H PRN PRN Reason: Dry skin - Labs Labs: 12/25/16 10:30 12/26/16 10:40
[2016-12-26 11:05] LABS: ALB/GLOB RATIO 0.8 (1.1-1.8); ALBUMIN 2.4 g/dL (3.0-4.8); ALT/SGPT 31 U/L (7-56); AST/SGOT 20 U/L (15-59); BLOOD UREA NITROGEN 15 mg/dL (7-21); CALCIUM 7.7 mg/dL (8.4-10.5); GFR AFRICAN-AMERICAN > 60; GFR NON-AFRICAN AMERICAN > 60
[2016-12-26] MEDS: MULTIVIT IRON MIN PO SCH (11:42)
[2016-12-26] MEDS: [UNRECOGNIZED DRUG - OTHER] PO SCH (11:42)
[2016-12-26] MEDS: FOLIC ACID PO SCH (11:42)
[2016-12-26] MEDS: Non Formulary Medication (Omega-3-Acid Ethyl Esters [Omega 3] 500 MG) PO SCH ×2 (11:45→17:14)
[2016-12-26 13:49] LABS: OSMOLALITY,URINE 520 mosm/kg (50-645)
--- NOTE | 2016-12-26 22:14 | CP.PCM.PN ---
Subjective - Date & Time of Evaluation Date of Evaluation: 12/26/16 Time of Evaluation: 09:00 - Subjective Subjective: Seen and examined at bedside, daughter present , d/d with daughter. No BM reported last night, abdominal pain better. Ct scan report noted. Large amount stool, improvement of previously noted acute diverticulitis ascending colon. Still complain on occasion problem with swallowing. No reports of acute overnight , still having abdominal pain , Objective - Vital Signs/Intake and Output Vital Signs (last 24 hours): Temp Pulse Resp BP Pulse Ox 98 F 109 H 16 140/67 96 12/26/16 18:00 12/26/16 18:00 12/26/16 18:00 12/26/16 18:00 12/26/16 06:00 Intake and Output: 12/26/16 12/27/16 18:59 06:59 Intake Total 360 Output Total 600 Balance -240 - Medications Medications: Current Medications Acetaminophen (Tylenol 325mg Tab) 650 mg PO Q6H PRN PRN Reason: Pain, Mild (1-3) Last Admin: 12/25/16 22:37 Dose: 650 mg Albuterol/Ipratropium (Duoneb 3 Mg/0.5 Mg (3 Ml) Ud) 3 ml INH Q6H [facility] Last Admin: 12/26/16 13:25 Dose: 3 ml Aspirin (Ecotrin) 81 mg PO DAILY [facility] Last Admin: 12/26/16 10:12 Dose: 81 mg Atorvastatin Calcium (Lipitor) 20 mg PO DAILY [facility] Last Admin: 12/26/16 10:12 Dose: 20 mg Clonidine HCl (Catapres Tts1 0.1 Mg/24 Hr) 1 patch TD FRI [facility] Enoxaparin Sodium (Lovenox) 40 mg SC DAILY [facility] PRN Reason: Protocol Last Admin: 12/26/16 10:12 Dose: 40 mg Ergocalciferol (Drisdol 50,000 Intl Units Cap) 1 cap PO Fr@1000 ZACK Famotidine (Pepcid) 20 mg PO DAILY [facility] Last Admin: 12/26/16 10:12 Dose: 20 mg Sodium Chloride (Sodium Chloride 0.9%) 1,000 mls @ 100 mls/hr IV .Q10H [facility] Last Admin: 12/26/16 17:14 Dose: 100 mls/hr Lactulose (Enulose) 30 gm PO DAILY [facility] Last Admin: 12/26/16 10:12 Dose: 30 gm Levothyroxine Sodium (Synthroid) 25 mcg PO 0600 [facility] Last Admin: 12/26/16 05:42 Dose: 25 mcg Lisinopril (Zestril) 10 mg PO DAILY [facility] Last Admin: 12/26/16 11:43 Dose: Not Given Mupirocin (Bactroban Ointment) 0 gm TOP BID [facility] Last Admin: 12/26/16 17:14 Dose: 1 applic Non-Formulary Medication (Acetaminophen [Pain Relief]) 2 tab PO Q4H PRN PRN Reason: Pain, Mild (1-3) Non-Formulary Medication (Multivit,Iron,Min 5/Folic Acid [Strovite Forte Caplet] ) 1 each PO DAILY [facility] Last Admin: 12/26/16 11:42 Dose: Not Given Non-Formulary Medication (Ksdrt-3-Bdxv Ethyl Esters [[place] 3]) 500 mg PO BID [facility] Last Admin: 12/26/16 17:14 Dose: 500 mg Polyethylene Glycol (Miralax) 17 gm PO BID [facility] Last Admin: 12/26/16 18:27 Dose: 17 gm Vitamin A (Vitamin A & D Oint Ud Foilpak) 1 ea TOP Q6H PRN PRN Reason: Dry skin - Labs Labs: 12/25/16 10:30 12/26/16 10:40 - Constitutional Appears: Well - Head Exam Head Exam: ATRAUMATIC, NORMAL INSPECTION, NORMOCEPHALIC - Eye Exam Eye Exam: EOMI, Normal appearance, PERRL Pupil Exam: NORMAL ACCOMODATION, PERRL - ENT Exam ENT Exam: Mucous Membranes Moist, Normal Exam - Neck Exam Neck Exam: Full ROM, Normal Inspection. absent: Lymphadenopathy - Respiratory Exam Respiratory Exam: Clear to Ausculation Bilateral, NORMAL BREATHING PATTERN - Cardiovascular Exam Cardiovascular Exam: REGULAR RHYTHM, +S1, +S2. absent: Murmur - GI/Abdominal Exam GI & Abdominal Exam: Soft, Normal Bowel Sounds. absent: Tenderness - Rectal Exam Rectal Exam: NORMAL INSPECTION - Extremities Exam Extremities Exam: Full ROM, Normal Capillary Refill, Normal Inspection. absent : Joint Swelling, Pedal Edema - Back Exam Back Exam: NORMAL INSPECTION - Neurological Exam Neurological Exam: Alert, Awake, CN II-XII Intact, Normal Gait, Oriented x3 - Psychiatric Exam Psychiatric exam: Normal Affect, Normal Mood - Skin Skin Exam: Dry, Intact, Normal Color, Warm Assessment and Plan (1) Acute constipation Assessment & Plan: getting stool softer , gi is on the case Status: Resolved (2) Atypical syncope Assessment & Plan: no more attack of syncopy , neuro is on the case Status: Acute (3) Seizure Assessment & Plan: stable Status: Acute (4) Anemia Assessment & Plan: gi is working on anemia , to r/o GI cause of anemia Status: Acute (5) Hernia Assessment & Plan: s/p surgery Status: Acute (6) Pain Assessment & Plan: abdominal pain getting better Status: Acute (7) Rectal bleeding Assessment & Plan: stable Status: Acute (8) CAD (coronary artery disease) Status: Acute (9) EMILE (obstructive sleep apnea) Status: Acute - Assessment and Plan (Free Text) Assessment: Abdominal Pain, mainly left quadrant, maybe secondary to constipation, but also have h/o Diverticulosis, s/p surgery:s/p ct scan: large amt of stool, improvement of previous noted acute diverticulitis in descending colon Constipation Hyponatremia, improved Dysphasia s/p recent 11/2016Exp lap for lysis of adhesion, resection of colon and removal of infected Seizure CAD w/ stent HTN PLAN: on advanced bite size diet with nectar thick liquids on Lactulose continue GI prophylaxsis on Aspirin on Lovenox on Miralax daily may benefit from EGD, for dysphagia and c/o wt. loss, will discuss with family spoke to Nataliia, pt daughter at [phone], regarding possible EGD tomorrow, agree for procedure, will also speak to her family.
[2016-12-27] MEDS: Albuterol-Ipratrop 3 mg / 0.5 (3 ml) UD INH SCH ×4 (04:24→20:04)
[2016-12-27] MEDS: Levothyroxine 25 MCG TAB PO SCH (05:27)
[2016-12-27 06:28] LABS: BASO # 0.02 K/mm3 (0.0-2.0); BASO % 0.4 % (0.0-3.0); EOS # 0.1 (0.0-0.7); EOS % 2.2 % (1.5-5.0); GRAN % 52.9 % (50.0-68.0); HEMOGLOBIN 8.6 gm/dL (14.0-18.0); LYMPH # 1.6 (1.2-3.4); LYMPH % 35.2 % (22.0-35.0); MEAN CELL VOLUME 87.9 fL (80.0-105.0); MEAN CORPUSCULAR HEMOGLOBIN 29.8 pg (25.0-35.0); MEAN CORPUSCULAR HGB CONC 33.9 g/dl (31.0-37.0); MEAN PLATELET VOLUME 8.6 fl (7.0-11.0); MONO # 0.4 (0.1-0.6); MONO % 9.3 % (1.0-6.0); PLATELET COUNT 434 10^3/uL (120.0-450.0); RBC 2.89 10^6/uL (3.5-6.1); RED CELL DISTRIBUTION WIDTH 13.3 % (11.5-14.5); WHITE BLOOD COUNT 4.5 10^3/ul (4.5-11.0)
[2016-12-27 06:37] LABS: INR 1.19 (0.93-1.08); PARTIAL THROMBOPLASTIN TIME 29.8 Seconds (23.7-30.8); PROTHROMBIN TIME 12.8 Seconds (9.9-11.8)
[2016-12-27 06:38] LABS: ALB/GLOB RATIO 0.7 (1.1-1.8); ALBUMIN 2.3 g/dL (3.0-4.8); ALT/SGPT 31 U/L (7-56); AST/SGOT 24 U/L (15-59); BLOOD UREA NITROGEN 10 mg/dL (7-21); CALCIUM 7.5 mg/dL (8.4-10.5); GFR AFRICAN-AMERICAN > 60; GFR NON-AFRICAN AMERICAN > 60; HDL CHOLESTEROL 26 mg/dL (29-60)
[2016-12-27 06:40] LABS: % IRON SATURATION 15 % (20-55); IRON 26 ug/dL (45-180); TOTAL IRON BINDING CAPACITY 167 ug/dL (261-462)
[2016-12-27 07:10] LABS: LDL CHOLESTEROL < 30 mg/dL (0-129)
--- NOTE | 2016-12-27 09:15 | PN ---
DATE: 12/26/2016 *------* SUBJECTIVE: He is lying in the bed at 45 degrees, gets short of breath on minimal exertion with chest pain, still has abdominal pain, constipated. No dysuria. No leg pain or leg swelling. Has a poor appetite. OBJECTIVE: GENERAL: In no acute distress. VITAL SIGNS: Temperature is 98, heart rate 74, respiratory rate is 18, blood pressure 111/56, and pulse ox 96% on room air. HEENT: Small oral cavity *------*. NECK: Supple. No JVD. LUNGS: Diffuse scattered rhonchi. HEART: S1 and S2. ABDOMEN: Positive bowel sounds. Mild tenderness. Left lower quadrant has a dressing. EXTREMITIES: No edema. NEUROLOGIC: Awake and alert. Follow simple command. MEDICATIONS: He is on: 1. Tylenol p.r.n. basis. 2. Bactroban ointment to affected area. 3. Paraffin patch weekly. 4. Vitamin D 50,000 units weekly. 5. DuoNeb q.6 hours. 6. Ecotrin 81 mg daily. 7. Lactulose 30 mg daily. 8. Lipitor 20 mg daily. 9. Lovenox 40 mg subcutaneous daily. 10. MiraLax 17 g twice a day. 11. Multivitamin daily. 12. Pepcid 20 mg daily. 13. IV fluid normal saline 100 mL per hour. 14. Synthroid 25 mcg daily. 15. Vitamin A and D ointment to affected area. 16. Zestril 10 mg daily. LABORATORY DATA: Reviewed, showed sodium 132, potassium 3.9, chloride 99, CO2 of 25, BUN 15, creatinine 0.9, glucose 132, calcium 7.7. AST 20, ALT 31, alk phos is 65, albumin is 2.4. Microbiology: Blood culture and urine culture, there is no growth. He has a CAT scan of the abdomen and pelvis done yesterday, which shows patchy atelectasis in the basilar area, may have lingula also involved. There is a large amount of stool liquid and air within the entire colon and also appeared mildly distended. IMPRESSION AND PLAN: History of inguinal hernia requiring surgery in the remote past and with abscess involving the mesh and intestine ended up with laparotomy with a partial hemicolectomy. Since then, having constipation with colonic ileus, hypertension, diabetes, malnourished, history of coronary artery disease, coronary stent, sleep apnea syndrome; basilar atelectasis, I doubt this is pneumonia; questionable seizure. Being followed by gastroenterology, suggested EGD because of poor p.o. intake and dysphagia. From pulmonary point of view, we will continue laxatives, keep head elevated at 45 degrees, out of bed to chair, physical therapy. We will follow with you. Dakotah Farrar MD
[2016-12-27] MEDS: Enoxaparin 40 mg Syringe SC SCH (09:37)
--- NOTE | 2016-12-27 09:38 | CP.PCM.PN ---
Subjective - Date & Time of Evaluation Date of Evaluation: 12/27/16 Time of Evaluation: 09:34 - Subjective Subjective: feels ok, denies n/v Objective - Vital Signs/Intake and Output Vital Signs (last 24 hours): Temp Pulse Resp BP Pulse Ox 98.9 F 74 19 120/60 99 12/27/16 06:00 12/27/16 06:00 12/27/16 06:00 12/27/16 06:00 12/27/16 06:00 Intake and Output: 12/27/16 12/27/16 06:59 18:59 Intake Total 1200 Output Total 650 Balance 550 - Medications Medications: Current Medications Acetaminophen (Tylenol 325mg Tab) 650 mg PO Q6H PRN PRN Reason: Pain, Mild (1-3) Last Admin: 12/25/16 22:37 Dose: 650 mg Albuterol/Ipratropium (Duoneb 3 Mg/0.5 Mg (3 Ml) Ud) 3 ml INH Q6H [facility] Last Admin: 12/27/16 07:45 Dose: 3 ml Aspirin (Ecotrin) 81 mg PO DAILY [facility] Last Admin: 12/26/16 10:12 Dose: 81 mg Atorvastatin Calcium (Lipitor) 20 mg PO DAILY [facility] Last Admin: 12/26/16 10:12 Dose: 20 mg Clonidine HCl (Catapres Tts1 0.1 Mg/24 Hr) 1 patch TD FRI [facility] Enoxaparin Sodium (Lovenox) 40 mg SC DAILY [facility] PRN Reason: Protocol Last Admin: 12/26/16 10:12 Dose: 40 mg Ergocalciferol (Drisdol 50,000 Intl Units Cap) 1 cap PO Fr@1000 [facility] Famotidine (Pepcid) 20 mg PO DAILY [facility] Last Admin: 12/26/16 10:12 Dose: 20 mg Sodium Chloride (Sodium Chloride 0.9%) 1,000 mls @ 100 mls/hr IV .Q10H [facility] Last Admin: 12/26/16 21:00 Dose: 100 mls/hr Lactulose (Enulose) 30 gm PO DAILY [facility] Last Admin: 12/26/16 10:12 Dose: 30 gm Levothyroxine Sodium (Synthroid) 25 mcg PO 0600 [facility] Last Admin: 12/27/16 05:27 Dose: 25 mcg Lisinopril (Zestril) 10 mg PO DAILY [facility] Last Admin: 12/26/16 11:43 Dose: Not Given Mupirocin (Bactroban Ointment) 0 gm TOP BID [facility] Last Admin: 12/26/16 17:14 Dose: 1 applic Non-Formulary Medication (Acetaminophen [Pain Relief]) 2 tab PO Q4H PRN PRN Reason: Pain, Mild (1-3) Non-Formulary Medication (Multivit,Iron,Min 5/Folic Acid [Strovite Forte Caplet] ) 1 each PO DAILY [facility] Last Admin: 12/26/16 11:42 Dose: Not Given Non-Formulary Medication (Lrhlw-0-Nfzv Ethyl Esters [[place] 3]) 500 mg PO BID [facility] Last Admin: 12/26/16 17:14 Dose: 500 mg Polyethylene Glycol (Miralax) 17 gm PO BID [facility] Last Admin: 12/26/16 18:27 Dose: 17 gm Vitamin A (Vitamin A & D Oint Ud Foilpak) 1 ea TOP Q6H PRN PRN Reason: Dry skin - Labs Labs: 12/27/16 05:35 12/27/16 05:35 PT 12.8 Seconds (9.9-11.8) H 12/27/16 05:35 INR 1.19 (0.93-1.08) H 12/27/16 05:35 APTT 29.8 Seconds (23.7-30.8) 12/27/16 05:35 - Constitutional Appears: Non-toxic - Head Exam Head Exam: ATRAUMATIC - Eye Exam Eye Exam: Normal appearance - ENT Exam ENT Exam: Normal Exam - Neck Exam Neck Exam: Normal Inspection - Respiratory Exam Respiratory Exam: NORMAL BREATHING PATTERN - Cardiovascular Exam Cardiovascular Exam: +S1, +S2 - GI/Abdominal Exam Additional comments: dressing on lower abdomen - Extremities Exam Additional comments: no edema - Neurological Exam Neurological Exam: Alert, Oriented x3 - Psychiatric Exam Psychiatric exam: Flat Affect - Skin Skin Exam: Normal Color Assessment and Plan - Assessment and Plan (Free Text) Assessment: acute on chronic recurrent hyponatremia/seizure/ dm / htn / unintentional weight loss d/c ivf now, na seems to have stabalized, reviewing labs suggests he is at his relative baseline sodium at least as of recent. suggests underlying siadh - willl check am cortisol tomorrow to r/o adrenal insufficiency, otherwise recc malignancy work up - upper endo and colol (if not recently performed) given unintentional weight loss.
[2016-12-27] MEDS: POLYETHYLENE GLYCOL 3350 17 GM/Dose PACKET PO SCH ×2 (09:39→17:42)
[2016-12-27] MEDS ORDERED: Ergocalciferol 50,000 Intl Units Cap PO SCH ×2 (10:00)
[2016-12-27] MEDS: MULTIVIT IRON MIN PO SCH (10:08)
[2016-12-27] MEDS: [UNRECOGNIZED DRUG - OTHER] PO SCH (10:08)
[2016-12-27] MEDS: FOLIC ACID PO SCH (10:08)
[2016-12-27] MEDS: Non Formulary Medication (Omega-3-Acid Ethyl Esters [Omega 3] 500 MG) PO SCH ×2 (10:09→17:42)
--- NOTE | 2016-12-27 10:41 | CP.PCM.PN ---
<Rhiannon Rm - Last Filed: 12/27/16 14:33> Subjective - Date & Time of Evaluation Date of Evaluation: 12/27/16 Time of Evaluation: 09:00 - Subjective Subjective: Seen and examined at bedside, no acute overnight events. No N/V, still reports some dysphagia, no c/o abdominal bloating now, bc has not really eaten, no abdominal pain, but does not recall any recent BM. No SOB , CP or acute overnight events. Objective - Vital Signs/Intake and Output Vital Signs (last 24 hours): Temp Pulse Resp BP Pulse Ox 98.9 F 80 19 122/55 L 99 12/27/16 06:00 12/27/16 09:38 12/27/16 06:00 12/27/16 09:38 12/27/16 06:00 Intake and Output: 12/27/16 12/27/16 06:59 18:59 Intake Total 1200 Output Total 650 Balance 550 - Medications Medications: Current Medications Acetaminophen (Tylenol 325mg Tab) 650 mg PO Q6H PRN PRN Reason: Pain, Mild (1-3) Last Admin: 12/25/16 22:37 Dose: 650 mg Albuterol/Ipratropium (Duoneb 3 Mg/0.5 Mg (3 Ml) Ud) 3 ml INH Q6H [facility] Last Admin: 12/27/16 07:45 Dose: 3 ml Aspirin (Ecotrin) 81 mg PO DAILY [facility] Last Admin: 12/27/16 09:37 Dose: 81 mg Atorvastatin Calcium (Lipitor) 20 mg PO DAILY [facility] Last Admin: 12/27/16 09:38 Dose: 20 mg Clonidine HCl (Catapres Tts1 0.1 Mg/24 Hr) 1 patch TD FRI [facility] Enoxaparin Sodium (Lovenox) 40 mg SC DAILY [facility] PRN Reason: Protocol Last Admin: 12/27/16 09:37 Dose: 40 mg Ergocalciferol (Drisdol 50,000 Intl Units Cap) 1 cap PO Fr@1000 [facility] Last Admin: 12/27/16 09:38 Dose: 1 cap Famotidine (Pepcid) 20 mg PO DAILY [facility] Last Admin: 12/27/16 09:39 Dose: 20 mg Lactulose (Enulose) 30 gm PO DAILY [facility] Last Admin: 12/27/16 09:39 Dose: 30 gm Levothyroxine Sodium (Synthroid) 25 mcg PO 0600 [facility] Last Admin: 12/27/16 05:27 Dose: 25 mcg Lisinopril (Zestril) 10 mg PO DAILY [facility] Last Admin: 12/27/16 09:38 Dose: 10 mg Mupirocin (Bactroban Ointment) 0 gm TOP BID [facility] Last Admin: 12/27/16 09:39 Dose: 1 applic Non-Formulary Medication (Acetaminophen [Pain Relief]) 2 tab PO Q4H PRN PRN Reason: Pain, Mild (1-3) Non-Formulary Medication (Multivit,Iron,Min 5/Folic Acid [Strovite Forte Caplet] ) 1 each PO DAILY [facility] Last Admin: 12/27/16 10:08 Dose: Not Given Non-Formulary Medication (Lomxp-1-Jcax Ethyl Esters [[place] 3]) 500 mg PO BID [facility] Last Admin: 12/27/16 10:09 Dose: Not Given Polyethylene Glycol (Miralax) 17 gm PO BID [facility] Last Admin: 12/27/16 09:39 Dose: 17 gm Vitamin A (Vitamin A & D Oint Ud Foilpak) 1 ea TOP Q6H PRN PRN Reason: Dry skin - Labs Labs: 12/27/16 05:35 12/27/16 05:35 PT 12.8 Seconds (9.9-11.8) H 12/27/16 05:35 INR 1.19 (0.93-1.08) H 12/27/16 05:35 APTT 29.8 Seconds (23.7-30.8) 12/27/16 05:35 - Constitutional Appears: Cachectic - Head Exam Head Exam: NORMOCEPHALIC - Eye Exam Eye Exam: Normal appearance. absent: Scleral icterus - ENT Exam ENT Exam: Mucous Membranes Moist - Neck Exam Neck Exam: Normal Inspection - Respiratory Exam Respiratory Exam: Decreased Breath Sounds, NORMAL BREATHING PATTERN. absent: Respiratory Distress - Cardiovascular Exam Cardiovascular Exam: +S1, +S2 - GI/Abdominal Exam GI & Abdominal Exam: Soft, Normal Bowel Sounds. absent: Guarding, Tenderness, Rebound - Extremities Exam Extremities Exam: absent: Calf Tenderness, Pedal Edema - Neurological Exam Neurological Exam: Alert, Awake, Oriented x3 - Skin Skin Exam: Dry, Warm Assessment and Plan - Assessment and Plan (Free Text) Assessment: ASSESSMENT: Improved Abdominal Pain, mainly left quadrant, maybe secondary to constipation, but also have h/o Diverticulosis, s/p surgery:s/p ct scan: large amt of stool, improvement of previous noted acute diverticulitis in descending colon Constipation Anemia Wt. Loss Hyponatremia, improved Dysphasia s/p recent 11/2016Exp lap for lysis of adhesion, resection of colon and removal of infected Seizure CAD w/ stent HTN PLAN: on advanced bite size diet with nectar thick liquids on Lactulose continue GI prophylaxsis on Aspirin on Lovenox on Miralax daily swallow eval esophagogram Had detail discussion with patient daughters, Jolene and Michel via phone, discussed EGD to be done for evaluate c/o dysphagia and wt. loss,risk,benefits, alternatives discussed, they are reluctant with patient undergoing anesthesia since he had recent surgery a few weeks ago and getting anesthesia again, for now prefer noninvasive procedure and if any acute findings or no improvement can reconsider need for EGD, discuss having re-eval for swallowing and esophagogram. Discussed with patient as well, who agrees. Seen and discussed with Dr. Osorio. <Hernan Osorio V - Last Filed: 12/28/16 11:46> Objective - Vital Signs/Intake and Output Vital Signs (last 24 hours): Temp Pulse Resp BP Pulse Ox 98.8 F 67 20 136/73 100 12/27/16 21:55 12/27/16 22:00 12/27/16 21:55 12/27/16 21:55 12/27/16 09:45 Intake and Output: 12/27/16 12/28/16 18:59 06:59 Intake Total 170 325 Output Total 500 Balance -330 325 - Medications Medications: Current Medications Acetaminophen (Tylenol 325mg Tab) 650 mg PO Q6H PRN PRN Reason: Pain, Mild (1-3) Last Admin: 12/25/16 22:37 Dose: 650 mg Albuterol/Ipratropium (Duoneb 3 Mg/0.5 Mg (3 Ml) Ud) 3 ml INH Q6H [facility] Last Admin: 12/27/16 20:04 Dose: Not Given Aspirin (Ecotrin) 81 mg PO DAILY [facility] Last Admin: 12/27/16 09:37 Dose: 81 mg Atorvastatin Calcium (Lipitor) 20 mg PO DAILY [facility] Last Admin: 12/27/16 09:38 Dose: 20 mg Bisacodyl (Dulcolax) 10 mg RC DAILY [facility] Last Admin: 12/27/16 14:44 Dose: 10 mg Clonidine HCl (Catapres Tts1 0.1 Mg/24 Hr) 1 patch TD FRI [facility] Enoxaparin Sodium (Lovenox) 40 mg SC DAILY [facility] PRN Reason: Protocol Last Admin: 12/27/16 09:37 Dose: 40 mg Ergocalciferol (Drisdol 50,000 Intl Units Cap) 1 cap PO Fr@1000 [facility] Last Admin: 12/27/16 09:38 Dose: 1 cap Famotidine (Pepcid) 20 mg PO DAILY [facility] Last Admin: 12/27/16 09:39 Dose: 20 mg Lactulose (Enulose) 30 gm PO DAILY [facility] Last Admin: 12/27/16 09:39 Dose: 20 gm Levothyroxine Sodium (Synthroid) 25 mcg PO 0600 [facility] Last Admin: 12/27/16 05:27 Dose: 25 mcg Lisinopril (Zestril) 10 mg PO DAILY [facility] Last Admin: 12/27/16 09:38 Dose: 10 mg Mupirocin (Bactroban Ointment) 0 gm TOP BID [facility] Last Admin: 12/27/16 17:57 Dose: 1 applic Non-Formulary Medication (Acetaminophen [Pain Relief]) 2 tab PO Q4H PRN PRN Reason: Pain, Mild (1-3) Non-Formulary Medication (Multivit,Iron,Min 5/Folic Acid [Strovite Forte Caplet] ) 1 each PO DAILY [facility] Last Admin: 12/27/16 10:08 Dose: Not Given Non-Formulary Medication (Szhyv-5-Xjdo Ethyl Esters [[place] 3]) 500 mg PO BID [facility] Last Admin: 12/27/16 17:42 Dose: Not Given Polyethylene Glycol (Miralax) 17 gm PO BID [facility] Last Admin: 12/27/16 17:42 Dose: Not Given Vitamin A (Vitamin A & D Oint Ud Foilpak) 1 ea TOP Q6H PRN PRN Reason: Dry skin - Labs Labs: 12/27/16 05:35 12/27/16 05:35 PT 12.8 Seconds (9.9-11.8) H 12/27/16 05:35 INR 1.19 (0.93-1.08) H 12/27/16 05:35 APTT 29.8 Seconds (23.7-30.8) 12/27/16 05:35 Attending/Attestation - Attestation I have personally seen and examined this patient.: Yes I have fully participated in the care of the patient.: Yes I have reviewed all pertinent clinical information, including history, physical exam and plan: Yes Notes (Text): this patient was seen and evaluated earlier. Esophagram was reviewed normal. Swallowing evaluation noticed. Patient appears weak anemic loss of appetite would benefit from EGD if the family is agreeable. thank you very much for allowing us to participate in the care of the patient
[2016-12-27] MEDS ORDERED: Barium Sulfate for Susp 96% w/w 176g Bottle PR ONE (12:30)
[2016-12-27 12:59] LABS: FOLATE 15.7 ng/mL
--- NOTE | 2016-12-27 13:41 | RAD ---
HISTORY: Dysphagia. COMPARISON: None. TECHNIQUE: Single contrast esophagram was performed. FINDINGS: Patient tolerated procedure well. ESOPHAGUS: Esophageal mucosa appeared preserved. No evidence of stricture or mass lesion. HIATAL HERNIA: None demonstrated. GASTROESOPHAGEAL REFLUX: Not demonstrated. OTHER FINDINGS: None. IMPRESSION: Unremarkable esophagram.
--- NOTE | 2016-12-27 18:08 | CP.PCM.PN ---
Subjective - Date & Time of Evaluation Date of Evaluation: 12/27/16 Time of Evaluation: 09:00 - Subjective Subjective: - Subjective Subjective: Seen and examined at bedside, no acute overnight events. No N/V, still reports some dysphagia, no c/o abdominal bloating now, bc has not really eaten, no abdominal pain, but does not recall any recent BM. No SOB , CP or acute overnight events. suppose to go for endoscopy , daughters refused , i have lenth of time d/d with daughter . about endo , h/h droped . getting prbc transfusion Objective - Vital Signs/Intake and Output Vital Signs (last 24 hours): Temp Pulse Resp BP Pulse Ox 98.7 F 82 16 132/69 100 12/27/16 17:40 12/27/16 17:40 12/27/16 17:40 12/27/16 17:40 12/27/16 09:45 Intake and Output: 12/27/16 12/27/16 06:59 18:59 Intake Total 1200 170 Output Total 650 500 Balance 550 -330 - Medications Medications: Current Medications Acetaminophen (Tylenol 325mg Tab) 650 mg PO Q6H PRN PRN Reason: Pain, Mild (1-3) Last Admin: 12/25/16 22:37 Dose: 650 mg Albuterol/Ipratropium (Duoneb 3 Mg/0.5 Mg (3 Ml) Ud) 3 ml INH Q6H [facility] Last Admin: 12/27/16 13:42 Dose: 3 ml Aspirin (Ecotrin) 81 mg PO DAILY [facility] Last Admin: 12/27/16 09:37 Dose: 81 mg Atorvastatin Calcium (Lipitor) 20 mg PO DAILY [facility] Last Admin: 12/27/16 09:38 Dose: 20 mg Bisacodyl (Dulcolax) 10 mg RC DAILY [facility] Last Admin: 12/27/16 14:44 Dose: 10 mg Clonidine HCl (Catapres Tts1 0.1 Mg/24 Hr) 1 patch TD FRI [facility] Enoxaparin Sodium (Lovenox) 40 mg SC DAILY [facility] PRN Reason: Protocol Last Admin: 12/27/16 09:37 Dose: 40 mg Ergocalciferol (Drisdol 50,000 Intl Units Cap) 1 cap PO Fr@1000 [facility] Last Admin: 12/27/16 09:38 Dose: 1 cap Famotidine (Pepcid) 20 mg PO DAILY [facility] Last Admin: 12/27/16 09:39 Dose: 20 mg Furosemide (Lasix) 20 mg IVP ONCE ONE Stop: 12/27/16 20:46 Lactulose (Enulose) 30 gm PO DAILY [facility] Last Admin: 12/27/16 09:39 Dose: 20 gm Levothyroxine Sodium (Synthroid) 25 mcg PO 0600 [facility] Last Admin: 12/27/16 05:27 Dose: 25 mcg Lisinopril (Zestril) 10 mg PO DAILY [facility] Last Admin: 12/27/16 09:38 Dose: 10 mg Mupirocin (Bactroban Ointment) 0 gm TOP BID [facility] Last Admin: 12/27/16 09:39 Dose: 1 applic Non-Formulary Medication (Acetaminophen [Pain Relief]) 2 tab PO Q4H PRN PRN Reason: Pain, Mild (1-3) Non-Formulary Medication (Multivit,Iron,Min 5/Folic Acid [Strovite Forte Caplet] ) 1 each PO DAILY [facility] Last Admin: 12/27/16 10:08 Dose: Not Given Non-Formulary Medication (Pwonr-9-Lnyr Ethyl Esters [[place] 3]) 500 mg PO BID [facility] Last Admin: 12/27/16 10:09 Dose: Not Given Polyethylene Glycol (Miralax) 17 gm PO BID [facility] Last Admin: 12/27/16 09:39 Dose: 17 gm Vitamin A (Vitamin A & D Oint Ud Foilpak) 1 ea TOP Q6H PRN PRN Reason: Dry skin - Labs Labs: 12/27/16 05:35 12/27/16 05:35 PT 12.8 Seconds (9.9-11.8) H 12/27/16 05:35 INR 1.19 (0.93-1.08) H 12/27/16 05:35 APTT 29.8 Seconds (23.7-30.8) 12/27/16 05:35 - Constitutional Appears: Well - Head Exam Head Exam: ATRAUMATIC, NORMAL INSPECTION, NORMOCEPHALIC - Eye Exam Eye Exam: EOMI, Normal appearance, PERRL Pupil Exam: NORMAL ACCOMODATION, PERRL - ENT Exam ENT Exam: Mucous Membranes Moist, Normal Exam - Neck Exam Neck Exam: Full ROM, Normal Inspection. absent: Lymphadenopathy - Respiratory Exam Respiratory Exam: absent: Accessory Muscle Use, Chest Wall Tenderness, Decreased Breath Sounds, Clear to Ausculation Bilateral, Prolonged Expiratory Phase, Rales, Rhonchi, Wheezes, Respiratory Distress, Stridor, NORMAL BREATHING PATTERN - Cardiovascular Exam Cardiovascular Exam: REGULAR RHYTHM, +S1, +S2. absent: Murmur - GI/Abdominal Exam GI & Abdominal Exam: Soft, Normal Bowel Sounds. absent: Tenderness - Extremities Exam Extremities Exam: Full ROM, Normal Capillary Refill, Normal Inspection. absent : Joint Swelling, Pedal Edema - Back Exam Back Exam: NORMAL INSPECTION - Neurological Exam Neurological Exam: Alert, Awake, CN II-XII Intact, Normal Gait, Oriented x3 - Psychiatric Exam Psychiatric exam: Normal Affect, Normal Mood - Skin Skin Exam: Dry, Intact, Normal Color, Warm Assessment and Plan (1) Acute constipation Status: Resolved (2) Atypical syncope Assessment & Plan: miralex , not eating well , urge to eat more Status: Acute (3) Seizure Assessment & Plan: stable Status: Acute (4) Anemia Assessment & Plan: h/h dropping , getting prbc transfusion Status: Acute (5) Hernia Assessment & Plan: s/psugery Status: Acute (6) Pain Assessment & Plan: stable Status: Acute (7) Rectal bleeding Assessment & Plan: stable , suppose to go for end, family refused , Status: Acute (8) CAD (coronary artery disease) Assessment & Plan: stable Status: Acute (9) EMILE (obstructive sleep apnea) Status: Acute - Assessment and Plan (Free Text) Assessment: acute on chronic recurrent hyponatremia/seizure/ dm / htn / unintentional weight loss d/c ivf now, na seems to have stabalized, reviewing labs suggests he is at his relative baseline sodium at least as of recent. suggests underlying siadh - willl check am cortisol tomorrow to r/o adrenal insufficiency, otherwise recc malignancy work up - upper endo and colol (if not recently performed) given unintentional weight loss.
[2016-12-28] MEDS: Albuterol-Ipratrop 3 mg / 0.5 (3 ml) UD INH SCH ×4 (03:44→20:35)
[2016-12-28] MEDS: Levothyroxine 25 MCG TAB PO SCH (05:33)
[2016-12-28 07:10] LABS: HEMOGLOBIN 12.8 gm/dL (14.0-18.0); MEAN CELL VOLUME 85.4 fL (80.0-105.0); MEAN CORPUSCULAR HGB CONC 35.2 g/dl (31.0-37.0); MEAN PLATELET VOLUME 8.6 fl (7.0-11.0); RBC 4.26 10^6/uL (3.5-6.1); RED CELL DISTRIBUTION WIDTH 13.6 % (11.5-14.5); WHITE BLOOD COUNT 5.4 10^3/ul (4.5-11.0)
[2016-12-28] MEDS: Enoxaparin 40 mg Syringe SC SCH (09:03)
[2016-12-28] MEDS: POLYETHYLENE GLYCOL 3350 17 GM/Dose PACKET PO SCH ×2 (09:06→17:20)
[2016-12-28] MEDS: [UNRECOGNIZED DRUG - OTHER] PO SCH (09:06)
[2016-12-28] MEDS: MULTIVIT IRON MIN PO SCH (09:06)
[2016-12-28] MEDS: Non Formulary Medication (Omega-3-Acid Ethyl Esters [Omega 3] 500 MG) PO SCH ×2 (09:06→18:44)
[2016-12-28] MEDS: FOLIC ACID PO SCH (09:06)
--- NOTE | 2016-12-28 10:26 | PN ---
DATE: 12/27/2016 REFERRING PHYSICIAN: Dr. Ramirez. SUBJECTIVELY: He is lying on the bed, head at 45 degrees, status post esophageal study which was unremarkable. Appetite is little bit improving, no nausea or vomiting, still having some abdominal discomfort, no bowel movement today. No leg pain or leg swelling. OBJECTIVELY: VITAL SIGNS: Heart rate is 82, respiratory rate is 18, blood pressure 132/69, pulse ox 99% on nasal cannula. HEENT: Moist mucous membranes, small oral cavity, crowded. NECK: Supple, no JVD. LUNGS: *------*. HEART: S1 and S2. ABDOMEN: Positive bowel sounds, hyperactive bowel sounds, though mild diffuse tenderness, left inguinal area has a dressing. EXTREMITIES: There is no edema. NEUROLOGICAL: Awake and alert. Follows simple commands. MEDICATIONS: He is on: 1. Bacitracin ophthalmic ointment to the affected area. 2. Catapres 0.1 mg patch weekly. 3. Vitamin D 54612 units weekly. 4. Dulcolax rectally 10 mg. 5. DuoNeb q. 6 hours. 6. Ecotrin 81 mg daily. 7. Lactulose 30 g daily. 8. Lasix 20 mg daily. 9. Lipitor 20 mg daily. 10. Lovenox 40 mg subcu daily. 11. MiraLax 17 g twice a day. 12. [place]-3 daily. 13. Pepcid 20 mg daily. 14. Synthroid 25 mcg daily. 15. Tylenol p.r.n. 16. Vitamin A and D q. 6 hours p.r.n. 17. Zestril 10 mg daily. LABORATORY DATA: Shows hemoglobin 8.6, hematocrit 25.4, WBC 12.5, platelet count is 434. INR 1.19, PTT is 30. Sodium 132, potassium 3.6, chloride 102, bicarbonate 24, BUN 10, creatinine 0.8, hemoglobin A1c 6.9, calcium is 7.5. Iron 26, AST 24, ALT 31, albumin 2.3, cholesterol is 56; carcinoembryonic antigen 2.7, vitamin B12 999, TSH 1.90. Had an esophagogram done today which is unremarkable. IMPRESSION AND PLAN: 1. History of inguinal hernia requiring surgery in the remote past, ended up with left inguinal abscess involving the mesh and requiring laparotomy, removal of mesh and hemicolectomy. 2. Also has history of coronary artery disease with coronary stent; has pulmonary infiltrate, probably atelectasis. 3. History of hypertension, nausea chronic, colonic ileus, also has diabetes. Spoke to the nursing staff and suggested to give him Dulcolax on a daily basis until discontinued; *------* physical therapy, probably poor appetite is secondary to recurrent constipation. Dakotah Farrar MD
--- NOTE | 2016-12-28 16:05 | CP.PCM.PN ---
Subjective - Date & Time of Evaluation Date of Evaluation: 12/28/16 Time of Evaluation: 09:00 - Subjective Subjective: Seen and examined at bedside, no acute overnight events. No N/V, still reports some dysphagia, no c/o abdominal bloating now, bc has not really eaten, no abdominal pain, but does not recall any recent BM. No SOB , CP or acute overnight events. d/d with pts nurse and she spoke to the family , want to go for endo . to know cause of anemia , Objective - Vital Signs/Intake and Output Vital Signs (last 24 hours): Temp Pulse Resp BP Pulse Ox 97.2 F L 72 18 119/73 98 12/28/16 12:00 12/28/16 14:00 12/28/16 12:00 12/28/16 12:00 12/28/16 06:00 Intake and Output: 12/28/16 12/28/16 06:59 18:59 Intake Total 1700 Output Total 1100 Balance 600 - Medications Medications: Current Medications Acetaminophen (Tylenol 325mg Tab) 650 mg PO Q6H PRN PRN Reason: Pain, Mild (1-3) Last Admin: 12/25/16 22:37 Dose: 650 mg Albuterol/Ipratropium (Duoneb 3 Mg/0.5 Mg (3 Ml) Ud) 3 ml INH Q6H [facility] Last Admin: 12/28/16 14:19 Dose: 3 ml Aspirin (Ecotrin) 81 mg PO DAILY [facility] Last Admin: 12/28/16 09:03 Dose: 81 mg Atorvastatin Calcium (Lipitor) 20 mg PO DAILY [facility] Last Admin: 12/28/16 09:03 Dose: 20 mg Bisacodyl (Dulcolax) 10 mg RC DAILY [facility] Last Admin: 12/28/16 09:05 Dose: Not Given Clonidine HCl (Catapres Tts1 0.1 Mg/24 Hr) 1 patch TD FRI [facility] Enoxaparin Sodium (Lovenox) 40 mg SC DAILY [facility] PRN Reason: Protocol Last Admin: 12/28/16 09:03 Dose: 40 mg Ergocalciferol (Drisdol 50,000 Intl Units Cap) 1 cap PO Fr@1000 [facility] Last Admin: 12/27/16 09:38 Dose: 1 cap Famotidine (Pepcid) 20 mg PO DAILY [facility] Last Admin: 12/28/16 09:03 Dose: 20 mg Lactulose (Enulose) 30 gm PO DAILY [facility] Last Admin: 12/28/16 09:05 Dose: Not Given Levothyroxine Sodium (Synthroid) 25 mcg PO 0600 [facility] Last Admin: 12/28/16 05:33 Dose: 25 mcg Lisinopril (Zestril) 10 mg PO DAILY [facility] Last Admin: 12/28/16 09:03 Dose: 10 mg Mupirocin (Bactroban Ointment) 0 gm TOP BID [facility] Last Admin: 12/28/16 09:05 Dose: 1 applic Non-Formulary Medication (Acetaminophen [Pain Relief]) 2 tab PO Q4H PRN PRN Reason: Pain, Mild (1-3) Non-Formulary Medication (Multivit,Iron,Min 5/Folic Acid [Strovite Forte Caplet] ) 1 each PO DAILY [facility] Last Admin: 12/28/16 09:06 Dose: Not Given Non-Formulary Medication ([id number]-[id number] Ethyl Esters [[place] 3]) 500 mg PO BID [facility] Last Admin: 12/28/16 09:06 Dose: Not Given Polyethylene Glycol (Miralax) 17 gm PO BID [facility] Last Admin: 12/28/16 09:06 Dose: Not Given Vitamin A (Vitamin A & D Oint Ud Foilpak) 1 ea TOP Q6H PRN PRN Reason: Dry skin - Labs Labs: 12/28/16 07:04 12/27/16 05:35 PT 12.8 Seconds (9.9-11.8) H 12/27/16 05:35 INR 1.19 (0.93-1.08) H 12/27/16 05:35 APTT 29.8 Seconds (23.7-30.8) 12/27/16 05:35 - Constitutional Appears: Well - Head Exam Head Exam: ATRAUMATIC, NORMAL INSPECTION, NORMOCEPHALIC - Eye Exam Eye Exam: EOMI, Normal appearance, PERRL Pupil Exam: NORMAL ACCOMODATION, PERRL - ENT Exam ENT Exam: Mucous Membranes Moist, Normal Exam - Neck Exam Neck Exam: Full ROM, Normal Inspection. absent: Lymphadenopathy - Respiratory Exam Respiratory Exam: Clear to Ausculation Bilateral, NORMAL BREATHING PATTERN - Cardiovascular Exam Cardiovascular Exam: REGULAR RHYTHM, +S1, +S2. absent: Murmur - GI/Abdominal Exam GI & Abdominal Exam: Soft, Normal Bowel Sounds. absent: Tenderness - Rectal Exam Rectal Exam: NORMAL INSPECTION - Exam Exam: Circumcision, NORMAL INSPECTION External exam: NORMAL EXTERNAL EXAM Speculum exam: NORMAL SPECULUM EXAM Bimanual exam: NORMAL BIMANUAL EXAM - Extremities Exam Extremities Exam: Full ROM, Normal Capillary Refill, Normal Inspection. absent : Joint Swelling, Pedal Edema - Back Exam Back Exam: NORMAL INSPECTION - Neurological Exam Neurological Exam: Alert, Awake, CN II-XII Intact, Normal Gait, Oriented x3 - Psychiatric Exam Psychiatric exam: Normal Affect, Normal Mood - Skin Skin Exam: Dry, Intact, Normal Color, Warm Assessment and Plan (1) Acute constipation Status: Resolved (2) Atypical syncope Status: Acute (3) Seizure Status: Acute (4) Anemia Status: Acute (5) Hernia Status: Acute (6) Pain Status: Acute (7) Rectal bleeding Status: Acute (8) CAD (coronary artery disease) Status: Acute (9) EMILE (obstructive sleep apnea) Status: Acute - Assessment and Plan (Free Text) Assessment: Improved Abdominal Pain, mainly left quadrant, maybe secondary to constipation, but also have h/o Diverticulosis, s/p surgery:s/p ct scan: large amt of stool, improvement of previous noted acute diverticulitis in descending colon Constipation Anemia s/p blood transfusion Wt. Loss Hyponatremia, improved Dysphasia s/p recent 11/2016Exp lap for lysis of adhesion, resection of colon and removal of infected mesh . Seizure CAD w/ stent HTN PLAN: on advanced bite size diet with nectar thick liquids on Lactulose continue GI prophylaxsis on Aspirin on Lovenox on Miralax daily swallow eval esophagogram Had detail discussion with patient daughters, Kendall via phone, discussed EGD to be done for evaluate c/o dysphagia and wt. loss,risk,benefits, alternatives discussed, they are reluctant with patient undergoing anesthesia since he had recent surgery a few weeks ago and getting anesthesia again, for now prefer noninvasive procedure and if any acute findings or no improvement can reconsider need for EGD, discuss having re-eval for swallowing and esophagogram. Discussed with patient as well, who agrees. as per GI , now spoke to daugter again , she want father to go for endo . even pt agrees , will do procedure , gi dvt prophylaxes
[2016-12-29] MEDS: Albuterol-Ipratrop 3 mg / 0.5 (3 ml) UD INH SCH ×5 (01:54→22:04)
[2016-12-29] MEDS: Levothyroxine 25 MCG TAB PO SCH (05:58)
[2016-12-29 07:58] LABS: HEMOGLOBIN 13.3 gm/dL (14.0-18.0); MEAN CELL VOLUME 86.7 fL (80.0-105.0); MEAN CORPUSCULAR HGB CONC 35.8 g/dl (31.0-37.0); MEAN PLATELET VOLUME 8.7 fl (7.0-11.0); RBC 4.29 10^6/uL (3.5-6.1); WHITE BLOOD COUNT 6.2 10^3/ul (4.5-11.0)
[2016-12-29] MEDS: Enoxaparin 40 mg Syringe SC SCH (09:10)
[2016-12-29] MEDS: Non Formulary Medication (Omega-3-Acid Ethyl Esters [Omega 3] 500 MG) PO SCH ×2 (09:42→17:24)
[2016-12-29] MEDS: POLYETHYLENE GLYCOL 3350 17 GM/Dose PACKET PO SCH ×2 (09:42→17:24)
[2016-12-29] MEDS: [UNRECOGNIZED DRUG - OTHER] PO SCH (09:42)
[2016-12-29] MEDS: FOLIC ACID PO SCH (09:42)
[2016-12-29] MEDS: MULTIVIT IRON MIN PO SCH (09:42)
--- NOTE | 2016-12-29 14:28 | PN ---
DATE: 12/28/2016 REFERRING PHYSICIAN: Dr. Ramirez SUBJECTIVE: He is lying the bed, head up 35 degrees. No bowel movement today. He claims he did not get Dulcolax today. There is no cough, no sputum production. Still has a poor appetite, mild abdominal discomfort. No leg pain or leg swelling. MEDICATIONS: He is on Bactroban ointment to the affected area,Catapres 0.1 mg weekly, vitamin D 15,000 units weekly, Dulcolax 10 mg suppository daily, albuterol/Atrovent nebulizer q.6 hours, Ecotrin 81 mg daily, Lipitor 20 mg daily, Lovenox 40 mg daily, MiraLax 17 g daily which is not given, [place]-3 500 mg twice a day, Pepcid 20 mg daily, Synthroid 25 mcg daily, Tylenol p.r.n. basis, vitamin A And D ointment to affected area q.6 hours, and Zestril 10 mg daily. OBJECTIVE: GENERAL: In no acute distress. VITAL SIGNS: Temperature is 98, heart rate 69, respiratory rate 18, blood pressure 119/73, pulse ox 98% on nasal canula. HEENT: Moist mucous membrane. *------*. Mallampati score is IV. NECK: Supple, no JVD. HEART: S1 and S2. LUNGS: Few crackles heard at the basis. ABDOMEN: Positive bowel sounds. Mild tenderness, has a dressing on the left inguinal area. EXTREMITIES: There is no edema. NEUROLOGIC: Awake and alert. Follows simple command. LABORATORY DATA: Shows hemoglobin 12.8, hematocrit 36.4, WBC 5.4 and platelets 378. Microbiology; blood culture and urine culture, there is no growth. IMPRESSION AND PLAN: History of inguinal hernia requiring repair in the remote past with a mesh, ended up with left inguinal abscess requiring incision and drainage, subsequently required laparotomy, removal of mesh, hemicolectomy *------* constipation with poor p.o. intake, losing weight and also bilateral lower lobe some infiltrate versus atelectasis. History of cholelithiasis, history of coronary stent, ADL dysfunction. We will continue Dulcolax suppository on daily basis. Stool softener, incentive spirometer, aspiration precaution. Follow up labs in the morning. Thank you and we will follow with you. Dakotah Farrar MD [facility] # [id number]
--- NOTE | 2016-12-29 16:37 | CP.PCM.PN ---
Subjective - Date & Time of Evaluation Date of Evaluation: 12/29/16 Time of Evaluation: 09:00 - Subjective Subjective: Subjective: Seen and examined at bedside, no acute overnight events. No N/V, still reports some dysphagia, no c/o abdominal bloating now, bc has not really eaten, no abdominal pain, but does not recall any recent BM. No SOB , CP or acute overnight events. Objective - Vital Signs/Intake and Output Vital Signs (last 24 hours): Temp Pulse Resp BP Pulse Ox 97.0 F L 70 18 132/74 100 12/29/16 12:00 12/29/16 12:00 12/29/16 12:00 12/29/16 12:00 12/29/16 06:00 Intake and Output: 12/29/16 12/29/16 06:59 18:59 Intake Total 240 540 Output Total 540 Balance -300 540 - Medications Medications: Current Medications Acetaminophen (Tylenol 325mg Tab) 650 mg PO Q6H PRN PRN Reason: Pain, Mild (1-3) Last Admin: 12/28/16 22:55 Dose: 650 mg Albuterol/Ipratropium (Duoneb 3 Mg/0.5 Mg (3 Ml) Ud) 3 ml INH Q6H [facility] Last Admin: 12/29/16 13:56 Dose: 3 ml Aspirin (Ecotrin) 81 mg PO DAILY [facility] Last Admin: 12/29/16 09:12 Dose: 81 mg Atorvastatin Calcium (Lipitor) 20 mg PO DAILY [facility] Last Admin: 12/29/16 09:12 Dose: 20 mg Bisacodyl (Dulcolax) 10 mg RC DAILY [facility] Last Admin: 12/29/16 09:11 Dose: 10 mg Clonidine HCl (Catapres Tts1 0.1 Mg/24 Hr) 1 patch TD FRI [facility] Enoxaparin Sodium (Lovenox) 40 mg SC DAILY [facility] PRN Reason: Protocol Last Admin: 12/29/16 09:10 Dose: 40 mg Ergocalciferol (Drisdol 50,000 Intl Units Cap) 1 cap PO Fr@1000 [facility] Last Admin: 12/27/16 09:38 Dose: 1 cap Famotidine (Pepcid) 20 mg PO DAILY [facility] Last Admin: 12/29/16 09:12 Dose: 20 mg Lactulose (Enulose) 30 gm PO DAILY [facility] Last Admin: 12/29/16 09:42 Dose: Not Given Levothyroxine Sodium (Synthroid) 25 mcg PO 0600 [facility] Last Admin: 12/29/16 05:58 Dose: 25 mcg Lisinopril (Zestril) 10 mg PO DAILY [facility] Last Admin: 12/29/16 09:11 Dose: 10 mg Mupirocin (Bactroban Ointment) 0 gm TOP BID [facility] Last Admin: 12/29/16 09:18 Dose: 1 applic Non-Formulary Medication (Acetaminophen [Pain Relief]) 2 tab PO Q4H PRN PRN Reason: Pain, Mild (1-3) Non-Formulary Medication (Multivit,Iron,Min 5/Folic Acid [Strovite Forte Caplet] ) 1 each PO DAILY [facility] Last Admin: 12/29/16 09:42 Dose: Not Given Non-Formulary Medication (Fmczv-9-[id number] Ethyl Esters [[place] 3]) 500 mg PO BID [facility] Last Admin: 12/29/16 09:42 Dose: Not Given Polyethylene Glycol (Miralax) 17 gm PO BID [facility] Last Admin: 12/29/16 09:42 Dose: Not Given Vitamin A (Vitamin A & D Oint Ud Foilpak) 1 ea TOP Q6H PRN PRN Reason: Dry skin - Labs Labs: 12/29/16 07:46 12/27/16 05:35 PT 12.8 Seconds (9.9-11.8) H 12/27/16 05:35 INR 1.19 (0.93-1.08) H 12/27/16 05:35 APTT 29.8 Seconds (23.7-30.8) 12/27/16 05:35 - Constitutional Appears: Well - Head Exam Head Exam: ATRAUMATIC, NORMAL INSPECTION, NORMOCEPHALIC - Eye Exam Eye Exam: EOMI, Normal appearance, PERRL Pupil Exam: NORMAL ACCOMODATION, PERRL - ENT Exam ENT Exam: Mucous Membranes Moist, Normal Exam - Neck Exam Neck Exam: Full ROM, Normal Inspection. absent: Lymphadenopathy - Respiratory Exam Respiratory Exam: Clear to Ausculation Bilateral, NORMAL BREATHING PATTERN - Cardiovascular Exam Cardiovascular Exam: REGULAR RHYTHM, +S1, +S2. absent: Murmur - GI/Abdominal Exam GI & Abdominal Exam: Soft, Normal Bowel Sounds. absent: Tenderness - Extremities Exam Extremities Exam: Full ROM, Normal Capillary Refill, Normal Inspection. absent : Joint Swelling, Pedal Edema - Back Exam Back Exam: NORMAL INSPECTION - Neurological Exam Neurological Exam: Alert, Awake, CN II-XII Intact, Normal Gait, Oriented x3 - Psychiatric Exam Psychiatric exam: Normal Affect, Normal Mood - Skin Skin Exam: Dry, Intact, Normal Color, Warm Assessment and Plan (1) Acute constipation Status: Resolved (2) Atypical syncope Status: Acute (3) Seizure Status: Acute (4) Anemia Status: Acute (5) Hernia Status: Acute (6) Pain Status: Acute (7) Rectal bleeding Status: Acute (8) CAD (coronary artery disease) Status: Acute (9) EMILE (obstructive sleep apnea) Status: Acute - Assessment and Plan (Free Text) Assessment: acute on chronic recurrent hyponatremia/seizure/ dm / htn / unintentional weight loss d/c ivf now, na seems to have stabalized, reviewing labs suggests he is at his relative baseline sodium at least as of recent. suggests underlying siadh - willl check am cortisol tomorrow to r/o adrenal insufficiency, otherwise recc malignancy work up - upper endo and colo, given unintentional weight loss. gi is on the case , endo friday . gi dvt prophylaxis , d/d with dr Camejo
--- NOTE | 2016-12-29 17:48 | RAD ---
HISTORY: Abdomen dated 12/29/2016. History: Obs AP and hand [id number] decubitus films performed. Comparison made with CT scan abdomen pelvis 12/25/2016. Comparison also made with CT scan abdomen and pelvis 11/25/2016. Findings: . COMPARISON: No prior. FINDINGS: BOWEL: There is opacification of the large bowel to the level of the distal descending/ sigmoid colon junction. . Multiple colonic diverticula again noted. No evidence to suggest acute mechanical bowel obstruction. Note that distal sigmoid and rectum are not opacified. No gross free intraperitoneal air seen identified decubitus films of. BONES: Osseous structures appear grossly unremarkable. OTHER FINDINGS: None. IMPRESSION: Oral contrast material opacifies most of the colon. There are multiple colonic diverticula. No evidence of acute mechanical small bowel obstruction. No gross free air seen on decubitus film
[2016-12-30] MEDS: Albuterol-Ipratrop 3 mg / 0.5 (3 ml) UD INH SCH ×4 (01:47→13:30)
--- NOTE | 2016-12-30 02:11 | PN ---
PULMONARY PROGRESS NOTE DATE: 12/29/2016 REQUESTING PHYSICIAN: Dr. Hines. SUBJECTIVE: He is lying in the bed at 45 degrees, had two bowel movements today, and feels better. No cough, no sputum production. No nausea. Appetite is a little better. No leg pain or leg swelling. OBJECTIVE: GENERAL: No acute distress. VITAL SIGNS: Temperature 98,heart rate 70, respiratory rate is 18, blood pressure 132/74, and pulse ox 100% on 2 L nasal cannula. HEENT: Moist mucous membrane. Small oral cavity. NECK: Supple. No JVD. LUNGS: Have a few rhonchi at the bases. HEART: S1 and S2. ABDOMEN: Positive bowel sounds. Soft. Left inguinal area dressing. EXTREMITIES: No edema. NEUROLOGIC: Awake and alert, follows simple commands. MEDICATIONS: He is on Tylenol p.r.n., Bactroban to affected area, vitamin D 15,000 units weekly, Dulcolax 10 mg rectally, DuoNeb q.6 hours p.r.n., Ecotrin 81 mg daily, lactulose 30 g daily, Lipitor 20 mg daily, Lovenox 40 mg subq daily, MiraLax 17 g twice a daily which was not given and lactulose was also not given, omega-3 500 mg twice a day, Pepcid 20 mg daily, Synthroid 25 mcg daily, Tylenol p.r.n. basis, vitamin A and D at affected areas, and Zestril 10 mg daily. LABORATORY DATA: Shows hemoglobin 13.3, hematocrit 37.2, WBC 6.2, and platelets count is 402. Microbiology: Blood culture and urine culture have no growth. IMPRESSION AND PLAN: History of hernia repair, status post inguinal abscess, requiring incision and drainage and with laparotomy for removal of mesh and hemicolectomy, severe constipation, bilateral basilar atelectasis/infiltrate. I spoke to the patient and family about that, all their questions answered, spoke to the nursing staff, and suggested to continue stool softener. We will get obstructive series, out of bed to chair, physical therapy, pulmonary toilet, and aspiration precautions. Thank you and we will follow with you. Dakotah Farrar MD cc:
[2016-12-30] MEDS: Levothyroxine 25 MCG TAB PO SCH (05:03)
[2016-12-30 07:30] LABS: ALB/GLOB RATIO 0.8 (1.1-1.8); ALBUMIN 2.7 g/dL (3.0-4.8); ALT/SGPT 35 U/L (7-56); AST/SGOT 34 U/L (15-59); BLOOD UREA NITROGEN 13 mg/dL (7-21); CALCIUM 8.3 mg/dL (8.4-10.5); GFR AFRICAN-AMERICAN > 60; GFR NON-AFRICAN AMERICAN > 60
[2016-12-30] MEDS ORDERED: Lidocaine 2% Inj (20ml) ONE (09:04)
[2016-12-30] MEDS ORDERED: Propofol 10 mg/ml Inj (20 ML) ONE (09:04)
[2016-12-30] MEDS ORDERED: Etomidate 20 mg/10ml Inj IV ONE (09:04)
[2016-12-30] MEDS ORDERED: Potassium Chloride 40 mEq/30 ml LIQ UD PO ONE (09:19)
[2016-12-30] MEDS ORDERED: Sodium Chloride 0.9% 1,000 ML IV SCH (10:00)
[2016-12-30 10:03] VITALS: O2SAT 100
[2016-12-30] MEDS: POLYETHYLENE GLYCOL 3350 17 GM/Dose PACKET PO SCH (10:55)
[2016-12-30] MEDS: FOLIC ACID PO SCH (10:56)
[2016-12-30] MEDS: Non Formulary Medication (Omega-3-Acid Ethyl Esters [Omega 3] 500 MG) PO SCH (10:56)
[2016-12-30] MEDS: [UNRECOGNIZED DRUG - OTHER] PO SCH (10:56)
[2016-12-30] MEDS: MULTIVIT IRON MIN PO SCH (10:56)
[2016-12-30 11:56] VITALS: BP 137/69; RESP 18; TEMP 96.5
--- NOTE | 2016-12-30 12:43 | CP.PCM.PN ---
Subjective - Date & Time of Evaluation Date of Evaluation: 12/30/16 Time of Evaluation: 12:34 - Subjective Subjective: Follow up Nephrology Consultation Note Assessment: Stable Hyponatremia with elevated urine Na and increased urine osmol points increased ADH which could be triggered by his underlying recent prolonged illness/stress or SIADH: improved Duodenal ulcer, gastritis. hx of recent colectomy Malnourished state Acute Kidney Injury (N17.9) likely due to pre-renal state: improved from 1.2 to 0.8 Hypokalemia Anemia s/p PRBC Plan Hyponatremia improved had EGD today. recent colon surgery. PSA and CEA unremarkable. As of yet, no evidence of malignancy as trigger of increased ADH. his latest CXR unremarkable. Supplement electrolytes. will also check SPEP. hold BP meds as lisinopril too as BP on low side. nutritional support Further work up for anemia as per primary team Thanks for allowing me to participate in care of your patient. Will follow patient with you. Please call if any Qs Dr Chino Sarkar Office: [phone] Subjective: Noted events overnight. Patients feels better. appetite better and able to eat more. pain abdomen resolved. Denies chest pain, palpitation, shortness of breath, leg swelling. No urinary complaints. had EGD 12/30: gastritis and duodenal ulcer Physical Examination: family bedside General Appearance: Comfortable, in no acute respiratory distress, co- operative. cachexic and frail appearing Vitals reviewed and noted as below Lungs: Normal respiratory rate/effort. Breath sounds bilateral equal and clear Heart: Normal rate. s1s2 normal. No rub or gallop. Extremities: no edema. Neurological: Patient is alert, awake and oriented to person, place and time. No focal deficit. Strength bilateral appropriate and equal Skin: Warm and dry. Normal turgor. No rash. Palpitation: Normal elasticity for age Abdomen: Abdomen is soft/scaphoid. Bowel sounds +. There is no abdominal tenderness, no guarding/rigidity or organomegaly : kidney or bladder not palpable Labs/imaging reviewed. Past medical history, past surgical history, family history, social history, allergy reviewed Work up; TSH 1.9 AM cortisol 19.5 TGL 71 urine Na 120 urine osmol 520 CXR: unremarkable. Objective - Vital Signs/Intake and Output Vital Signs (last 24 hours): Temp Pulse Resp BP Pulse Ox 96.5 F L 66 18 137/69 100 12/30/16 11:55 12/30/16 11:55 12/30/16 11:55 12/30/16 11:55 12/30/16 09:51 Intake and Output: 12/30/16 12/30/16 06:59 18:59 Intake Total 0 Output Total 325 Balance -325 0 - Medications Medications: Current Medications Acetaminophen (Tylenol 325mg Tab) 650 mg PO Q6H PRN PRN Reason: Pain, Mild (1-3) Last Admin: 12/29/16 22:08 Dose: 650 mg Albuterol/Ipratropium (Duoneb 3 Mg/0.5 Mg (3 Ml) Ud) 3 ml INH Q6H [facility] Last Admin: 12/30/16 07:38 Dose: 3 ml Aspirin (Ecotrin) 81 mg PO DAILY [facility] Last Admin: 12/29/16 09:12 Dose: 81 mg Atorvastatin Calcium (Lipitor) 20 mg PO DAILY [facility] Last Admin: 12/30/16 11:08 Dose: 20 mg Bisacodyl (Dulcolax) 10 mg RC DAILY [facility] Last Admin: 12/30/16 10:58 Dose: Not Given Clonidine HCl (Catapres Tts1 0.1 Mg/24 Hr) 1 patch TD FRI [facility] Enoxaparin Sodium (Lovenox) 40 mg SC DAILY [facility] PRN Reason: Protocol Last Admin: 12/29/16 09:10 Dose: 40 mg Ergocalciferol (Drisdol 50,000 Intl Units Cap) 1 cap PO Fr@1000 [facility] Last Admin: 12/27/16 09:38 Dose: 1 cap Famotidine (Pepcid) 20 mg PO DAILY [facility] Last Admin: 12/30/16 11:08 Dose: 20 mg Sodium Chloride (Sodium Chloride 0.9%) 1,000 mls @ 100 mls/hr IV .Q10H [facility] Last Admin: 12/30/16 11:09 Dose: 100 mls/hr Lactulose (Enulose) 30 gm PO DAILY [facility] Last Admin: 12/30/16 10:58 Dose: Not Given Levothyroxine Sodium (Synthroid) 25 mcg PO 0600 [facility] Last Admin: 12/30/16 05:03 Dose: Not Given Mupirocin (Bactroban Ointment) 0 gm TOP BID [facility] Last Admin: 12/29/16 17:23 Dose: Not Given Non-Formulary Medication (Acetaminophen [Pain Relief]) 2 tab PO Q4H PRN PRN Reason: Pain, Mild (1-3) Non-Formulary Medication (Multivit,Iron,Min 5/Folic Acid [Strovite Forte Caplet] ) 1 each PO DAILY [facility] Last Admin: 12/30/16 10:56 Dose: Not Given Non-Formulary Medication (Obzlu-0-Uzpv Ethyl Esters [[place] 3]) 500 mg PO BID [facility] Last Admin: 12/30/16 10:56 Dose: Not Given Polyethylene Glycol (Miralax) 17 gm PO BID [facility] Last Admin: 12/30/16 10:55 Dose: Not Given Vitamin A (Vitamin A & D Oint Ud Foilpak) 1 ea TOP Q6H PRN PRN Reason: Dry skin - Labs Labs: 12/29/16 07:46 12/30/16 06:30 PT 12.8 Seconds (9.9-11.8) H 12/27/16 05:35 INR 1.19 (0.93-1.08) H 12/27/16 05:35 APTT 29.8 Seconds (23.7-30.8) 12/27/16 05:35
[2016-12-30 16:45] VITALS: PULSE 70
--- NOTE | 2016-12-30 18:50 | CP.PCM.DIS ---
Provider - Provider Date of Admission: 12/24/16 00:18 Attending physician: Hannah Ramirez MD Primary care physician: Hannah Ramirez MD Time Spent in preparation of Discharge (in minutes): 60 Diagnosis - Discharge Diagnosis (1) Acute constipation Status: Resolved (2) Atypical syncope Status: Acute (3) Seizure Status: Acute (4) Anemia Status: Acute (5) Hernia Status: Acute (6) Pain Status: Acute (7) Rectal bleeding Status: Acute (8) CAD (coronary artery disease) Status: Acute (9) EMILE (obstructive sleep apnea) Status: Acute Hospital Course - Lab Results Lab Results: Most Recent Lab Values WBC 6.2 10^3/ul (4.5-11.0) 12/29/16 07:46 RBC 4.29 10^6/uL (3.5-6.1) 12/29/16 07:46 Hgb 13.3 gm/dL (14.0-18.0) L 12/29/16 07:46 Hct 37.2 % (42.0-52.0) L 12/29/16 07:46 MCV 86.7 fL (80.0-105.0) 12/29/16 07:46 MCH 31.0 pg (25.0-35.0) 12/29/16 07:46 MCHC 35.8 g/dl (31.0-37.0) 12/29/16 07:46 RDW 14.0 % (11.5-14.5) 12/29/16 07:46 Plt Count 402 10^3/uL (120.0-450.0) 12/29/16 07:46 MPV 8.7 fl (7.0-11.0) 12/29/16 07:46 Gran % 52.9 % (50.0-68.0) 12/27/16 05:35 Lymph % (Auto) 35.2 % (22.0-35.0) H 12/27/16 05:35 [place] % (Auto) 9.3 % (1.0-6.0) H 12/27/16 05:35 Eos % (Auto) 2.2 % (1.5-5.0) 12/27/16 05:35 Baso % (Auto) 0.4 % (0.0-3.0) 12/27/16 05:35 Gran # 2.40 (1.4-6.5) 12/27/16 05:35 Lymph # 1.6 (1.2-3.4) 12/27/16 05:35 [place] # 0.4 (0.1-0.6) 12/27/16 05:35 Eos # 0.1 (0.0-0.7) 12/27/16 05:35 Baso # 0.02 K/mm3 (0.0-2.0) 12/27/16 05:35 PT 12.8 Seconds (9.9-11.8) H 12/27/16 05:35 INR 1.19 (0.93-1.08) H 12/27/16 05:35 APTT 29.8 Seconds (23.7-30.8) 12/27/16 05:35 Sodium 134 mmol/L (132-148) 12/30/16 06:30 Potassium 3.4 mmol/L (3.6-5.0) L 12/30/16 06:30 Chloride 98 mmol/L (98-107) 12/30/16 06:30 Carbon Dioxide 27 mmol/L (21-33) 12/30/16 06:30 Anion Gap 12 (10-20) 12/30/16 06:30 BUN 13 mg/dL (7-21) 12/30/16 06:30 Creatinine 0.9 mg/dL (0.5-1.4) 12/30/16 06:30 Est GFR ( Amer) > 60 12/30/16 06:30 Est GFR (Non-Af Amer) > 60 12/30/16 06:30 Random Glucose 98 mg/dL (70-110) 12/30/16 06:30 Hemoglobin A1c 6.9 % (4.2-6.5) H 12/27/16 05:35 Serum Osmolality 279 mosm/kg (271-296) 12/26/16 10:40 Calcium 8.3 mg/dL (8.4-10.5) L 12/30/16 06:30 Phosphorus 2.7 mg/dL (2.5-4.5) 12/25/16 10:30 Magnesium 1.9 mg/dL (1.7-2.2) 12/25/16 10:30 Iron 26 ug/dL (45-180) L 12/27/16 05:35 TIBC 167 ug/dL (261-462) L 12/27/16 05:35 % Saturation 15 % (20-55) L 12/27/16 05:35 Transferrin 123.04 mg/dL (206-381) L 12/25/16 10:30 Ferritin 162.0 ng/mL 12/25/16 10:30 Total Bilirubin 0.5 mg/dL (0.2-1.3) 12/30/16 06:30 AST 34 U/L (15-59) 12/30/16 06:30 ALT 35 U/L (7-56) 12/30/16 06:30 Alkaline Phosphatase 83 U/L (38-133) 12/30/16 06:30 Troponin I < 0.01 ng/mL 12/23/16 21:50 Total Protein 6.2 g/dL (5.8-8.3) 12/30/16 06:30 Albumin 2.7 g/dL (3.0-4.8) L 12/30/16 06:30 Globulin 3.4 gm/dL 12/30/16 06:30 Albumin/Globulin Ratio 0.8 (1.1-1.8) L 12/30/16 06:30 Triglycerides 71 mg/dL (35-160) 12/27/16 05:35 Cholesterol 56 mg/dL (130-200) L 12/27/16 05:35 LDL Cholesterol Direct < 30 mg/dL (0-129) 12/27/16 05:35 HDL Cholesterol 26 mg/dL (29-60) L 12/27/16 05:35 Carcinoembryonic Ag 2.7 ng/mL (0.0-3.0) 12/27/16 07:00 Prostate Specific Ag 1.7 ng/mL (0.00-2.5) 12/27/16 07:00 Vitamin B12 999 pg/mL (239-931) H 12/27/16 05:35 Folate 15.7 ng/mL 12/27/16 05:35 TSH 3rd Generation 1.90 mIU/mL (0.46-4.68) 12/27/16 05:35 Cortisol AM Sample 19.5 ug/dL (4.46-22.7) 12/28/16 07:04 Urine Color Yellow (YELLOW) 12/23/16 23:56 Urine Appearance Clear (CLEAR) 12/23/16 23:56 Urine pH 6.0 (4.7-8.0) 12/23/16 23:56 Ur Specific [place] 1.020 (1.005-1.035) 12/23/16 23:56 Urine Protein Trace mg/dL (<30 mg/dL) H 12/23/16 23:56 Urine Glucose (UA) Negative mg/dL (NEGATIVE) 12/23/16 23:56 Urine Ketones Negative mg/dL (NEGATIVE) 12/23/16 23:56 Urine Blood Negative (NEGATIVE) 12/23/16 23:56 Urine Nitrate Negative (NEGATIVE) 12/23/16 23:56 Urine Bilirubin Negative (NEGATIVE) 12/23/16 23:56 Urine Urobilinogen 0.2 E.U./dL (<1 E.U./dL) 12/23/16 23:56 Ur Leukocyte Esterase Negative [place]/uL (NEGATIVE) 12/23/16 23:56 Urine RBC 0 - 2 /hpf (0-2) 12/23/16 23:56 Urine WBC 0 - 2 /hpf (0-6) 12/23/16 23:56 Ur Epithelial Cells 0 - 2 /hpf (0-5) 12/23/16 23:56 Urine Osmolality 520 mosm/kg (50-645) 12/26/16 12:45 Ur Random Sodium 170 meq/L 12/26/16 12:45 Blood Type A POSITIVE 12/27/16 14:30 Antibody Screen Negative 12/27/16 14:30 Crossmatch See Detail 12/27/16 14:30 BBK History Checked Patient has bt 12/27/16 14:30 - Hospital Course Hospital Course: seizure disorders. Patient is a 81 y/o with pmh of htn, DM, CAD with stents, recent surgery s/p partial colectomy sent from alf for possible seizures. Patient is not aware of having any histories of seizures or stroke, and doesn't remember experiencing any seizures. Patient thinks he was brought in due to abdominal pain 2nd to his surgical incision. As per EMR and patient's nurse, while in the alf, one of patient's daughter reported she noticed her dad was just staring at the ceiling, then the other daughter reported she noted the patient was shaking. [facility] staff didn't notice any seizure like activity. Patient is currently lying on the hospital bed, no acute distress, c/o abdominal pain around the incision site, denies headache, dizziness, lightheadedness. Patient denies cp or sob. Hyponatremia with elevated urine Na and increased urine osmol points increased ADH which could be triggered by his underlying recent prolonged illness/stress or SIADH: improved Duodenal ulcer, gastritis. hx of recent colectomy Malnourished state Acute Kidney Injury (N17.9) likely due to pre-renal state: improved from 1.2 to 0.8 Hypokalemia Anemia s/p PRBC Plan Hyponatremia improved had EGD today. recent colon surgery. PSA and CEA unremarkable. As of yet, no evidence of malignancy as trigger of increased ADH. his latest CXR unremarkable. Supplement electrolytes. will also check SPEP. hold BP meds as lisinopril too as BP on low side. nutritional supp Discharge Exam - Head Exam Head Exam: ATRAUMATIC, NORMAL INSPECTION, NORMOCEPHALIC - Eye Exam Eye Exam: EOMI, Normal appearance, PERRL Pupil Exam: NORMAL ACCOMODATION, PERRL - ENT Exam ENT Exam: Normal Exam, Normal Oropharynx - Neck Exam Neck exam: Full Rom, Normal Inspection - GI/Abdominal Exam GI & Abdominal Exam: Normal Bowel Sounds - Rectal Exam Rectal Exam: NORMAL INSPECTION - Exam Exam: Circumcision, NORMAL INSPECTION External exam: NORMAL EXTERNAL EXAM Speculum exam: NORMAL SPECULUM EXAM Bimanual exam: NORMAL BIMANUAL EXAM - Neurological Exam Neurological exam: Alert, CN II-XII Intact, Normal Gait, Oriented x3, Reflexes Normal - Psychiatric Exam Psychiatric exam: Normal Affect, Normal Mood - Skin Skin Exam: Dry, Intact, Normal Color, Warm Discharge Plan - Follow Up Plan Condition: FAIR Disposition: TRANSF TO SNF Instructions: Constipation (DC), Constipation (GEN), Hyponatremia (DC), Syncope (DC), Syncope (GEN), Open Herniorrhaphy (DC), Laparoscopic Herniorrhaphy (DC), Inguinal Hernia (DC), New-Onset Seizure in Adults (DC) Referrals: Hannah Ramirez MD [Primary Care Provider] -
--- NOTE | 2016-12-31 01:08 | PN ---
PULMONARY PROGRESS NOTE REFERRING PHYSICIAN: Dr. Ramirez. SUBJECTIVE: He is lying in the bed. No headache, no rhinitis, no cough, no nausea, no vomiting. Had a bowel movement, feels much better, no more abdominal pain. No leg pain or leg swelling. PHYSICAL EXAMINATION VITAL SIGNS: Temperature 98, heart rate 70, respiratory rate 18, blood pressure 137/69, and pulse ox 100% on 3 liters of nasal cannula. HEENT: Moist mucous membranes. Small oral cavity. NECK: Supple. No JVD. LUNGS: Had fair airflow with few rhonchi. HEART: S1 and S2. ABDOMEN: Soft and nontender. No organomegaly. EXTREMITIES: No edema. NEUROLOGIC: Awake, alert and follows simple commands. LABORATORY DATA: Reviewed. Sodium 134, potassium 3.4, chloride 98, bicarbonate 27, BUN 13, creatinine 0.9, glucose 98, calcium is 8.3. AST 34, ALT 35, alk phos is 83, albumin is 2.7, cortisol level is 19.5. Microbiology; blood culture and urine culture, there is no growth. Status post endoscopy shows esophageal gastritis. Landmarks are okay. Hiatal hernia, chronic gastritis, multiple duodenal ulcers. IMPRESSION AND PLAN: Hiatal hernia, gastric ulcer, esophagitis, constipation, basilar atelectasis, status post laparotomy with hemicolectomy, malnutrition, continue and encourage p.o. intake p.r.n., Dulcolax and stool softener, out of bed to chair with physical therapy. Thank you and we will follow with you. Dakotah Farrar MD
== END 2016-12-30 17:56 | DRG 101 ==
LOC: ED 20:35 → ERH 12-24 00:18 → 2RNO 12-24 02:41
PROVIDERS: ADMIT Internal Medicine; ATTEND Internal Medicine
DX: G40.909 Epilepsy, unspecified, not intractable, without status epilepticus (principal); N17.9 Acute kidney failure, unspecified; R64 Cachexia; E46 Unspecified protein-calorie malnutrition; K56.7 Ileus, unspecified; E87.1 Hypo-osmolality and hyponatremia; K57.32 Diverticulitis of large intestine without perforation or abscess without bleeding; K62.5 Hemorrhage of anus and rectum; J98.11 Atelectasis; K59.00 Constipation, unspecified; R13.10 Dysphagia, unspecified; E11.9 Type 2 diabetes mellitus without complications; E03.9 Hypothyroidism, unspecified; E87.6 Hypokalemia; G47.33 Obstructive sleep apnea (adult) (pediatric); I10 Essential (primary) hypertension; I25.10 Atherosclerotic heart disease of native coronary artery without angina pectoris; K20.9 Esophagitis, unspecified; K25.9 Gastric ulcer, unspecified as acute or chronic, without hemorrhage or perforation; K44.9 Diaphragmatic hernia without obstruction or gangrene; R47.02 Dysphasia; Z79.899 Other long term (current) drug therapy; Z87.11 Personal history of peptic ulcer disease; Z87.891 Personal history of nicotine dependence; Z90.49 Acquired absence of other specified parts of digestive tract; Z95.5 Presence of coronary angioplasty implant and graft; K46.9 Unspecified abdominal hernia without obstruction or gangrene; E55.9 Vitamin D deficiency, unspecified; D50.9 Iron deficiency anemia, unspecified; K29.50 Unspecified chronic gastritis without bleeding; Z98.42 Cataract extraction status, left eye; Z98.41 Cataract extraction status, right eye; R40.2412 Glasgow coma scale score 13-15, at arrival to emergency department

== ENCOUNTER 2017-03-25 09:44 | Inpatient (IN) | payer MEDICARE, MEDICAID ==
[2017-03-25 10:10] VITALS: BMI 14.1
--- NOTE | 2017-03-25 10:16 | ED PDOC ---
Arrival/HPI - General Chief Complaint: GI Problem Time Seen by Provider: 03/25/17 09:48 Historian: Patient, Family (x daughter) - History of Present Illness Narrative History of Present Illness (Text): 03/25/17 09:54 A 81 year old male, whose past medical history includes, rectal bleeding, seizure, obstructive sleep apnea, acute constipation, diverticulitis, and coronary artery disease, presents to the emergency department accompanied by daughter for lower abdominal pain and dark bloody stool. The patient reports his lower abdominal pain began yesterday and radiates to his lower back, the patient states at 03:00 this morning, the pain increased and when he went to use the bathroom, he saw "dark colored bloody stool." The patient admits to still having an appetite and eating food that his daughter prepares for him ( chicken and fish). He denies any fever, chest pain, nausea, vomiting, headaches , or any other complaints at this time. PMD: Dr. Byrd Time/Duration: 24 hours Symptom Onset: Sudden Symptom Course: Unchanged Activities at Onset: Rest, Light Context: Home Past Medical History - Provider Review Nursing Documentation Reviewed: Yes - Infectious Disease Hx of Infectious Diseases: None - Tetanus Immunization Tetanus Immunization: Unknown - Cardiac Hx Hypertension: Yes - Pulmonary Hx Respiratory Disorders: No - Neurological Hx Neurological Disorder: No - HEENT Hx Cataracts: Yes (b/l sx) - Renal Hx Kidney Stones: No - Endocrine/Metabolic Hx Diabetes Mellitus Type 2: Yes Hx Hypothyroidism: Yes - Hematological/Oncological Hx Blood Transfusions: No - Integumentary Other/Comment: ble skin discoloration, llq abd ddressings x2 dry and intact over i&d site - Musculoskeletal/Rheumatological Hx Falls: No - Gastrointestinal Hx Gastrointestinal Disorders: Yes (hiatal hernia, gi bleed) - Genitourinary/Gynecological Hx Reproductive Disorders: No - Psychiatric Hx Psychophysiologic Disorder: No Hx Substance Use: No - Surgical History Hx Coronary Stent: Yes (x2) Other/Comment: left inguinal hernia sx with mesh, abcess removed and I&d 11/18/16 infected mesh removed, Left inguinal fistula - Anesthesia Hx Anesthesia Reactions: No Hx Malignant Hyperthermia: No - Suicidal Assessment Feels Threatened In Home Enviroment: No Family/Social History - Physician Review Nursing Documentation Reviewed: Yes Family/Social History: Unknown Family HX Smoking Status: Never Smoked Hx Alcohol Use: No Hx Substance Use: No Hx Substance Use Treatment: No Allergies/Home Meds Allergies/Adverse Reactions: Allergies No Known Allergies Allergy (Verified 03/25/17 14:12) Home Medications: Home Meds Medication Instructions Recorded Confirmed Lisinopril [Zestril] 10 mg PO DAILY 12/18/15 03/25/17 Meloxicam [Mobic] 7.5 mg PO DAILY 11/30/16 03/25/17 Multivit,Iron,Min 5/Folic Acid 1 each PO DAILY 11/30/16 03/25/17 [Strovite Forte Caplet] [id number] Ethyl Esters [OMEGA 3] 500 mg PO BID 11/30/16 03/25/17 Ranitidine HCl [Acid Ground Support Equipment Mechanic] 150 mg PO DAILY 11/30/16 03/25/17 amLODIPine [Norvasc] 5 mg PO DAILY 11/30/16 03/25/17 Albuterol/Ipratropium [Duoneb 3 1 inh NEB Q6H 12/24/16 03/25/17 mg/0.5 mg (3 ml) UD] Atorvastatin [Lipitor] 20 mg PO DAILY 12/24/16 03/25/17 traMADol [Ultram] 50 mg PO Q6H PRN 12/24/16 03/25/17 Lactulose [Enulose] 0 gm PO DAILY 03/25/17 03/25/17 Review of Systems - Review of Systems Constitutional: absent: Fevers Respiratory: absent: SOB Cardiovascular: absent: Chest Pain Gastrointestinal: Abdominal Pain (lower), Hematochezia. absent: Diarrhea, Nausea, Vomiting, Appetite Changes, Hematemesis, Food Intolerance Genitourinary Male: absent: Dysuria, Hematuria Musculoskeletal: Back Pain (lower ) Neurological: absent: Headache, Dizziness, Focal Weakness Endocrine: absent: Polyuria Hemo/Lymphatic: absent: Easy Bleeding Physical Exam - Physical Exam Narrative Physical Exam (Text): 03/25/17 10:00 Head: Atraumatic. Normocephalic. Eyes: PERRL. EOMI. Conjunctivae are not pale. ENT: Mucous membranes are moist and intact. Oropharynx is clear and symmetric. Neck: Supple. Full ROM. No JVD. No lymphadenopathy. Cardiovascular: Regular rate. Regular rhythm. No murmurs, rubs, or gallops. Distal pulses are 2+ and symmetric. Pulmonary/Chest: No evidence of respiratory distress. Clear to auscultation bilaterally. No wheezing, rales or rhonchi. Abdominal: Soft and mild-distended. Diffuse lower quadrant tenderness. No rebound, guarding, or rigidity. No organomegaly. Good bowel sounds. Lower abdominal scars. No pulsatile masses. No hepatomegaly. Back: No CVA tenderness. No midline tenderness. Extremities: No edema. No cyanosis. No clubbing. Full range of motion in all extremities. No calf tenderness. Skin: Skin is warm and dry. No petechiae. No purpura. Neurological: No focal motor or sensory deficits. Psychiatric: Good eye contact. Normal interaction, affect, and behavior. Rectal: Brown stool. Heme negative. Vital Signs Reviewed: Yes Vital Signs Temp Pulse Resp BP Pulse Ox 03/25/17 13:09 96.4 F L 49 L 18 152/77 H 99 03/25/17 09:46 137/95 H 03/25/17 09:45 98.2 F 76 18 100 Temperature: Afebrile Pulse: Regular Respiratory Rate: Normal Appearance: Positive for: Well-Appearing, Non-Toxic, Comfortable Pain Distress: Mild Mental Status: Positive for: Alert and Oriented X 3 Medical Decision Making ED Course and Treatment: 03/25/17 10:22 Impression: A 81 year old male with abdominal pain and bloody stool. Differential Diagnosis included but are not limited to: colitis vs. GI bleed vs. bowel obstruction Plan: -- EKG -- Chest X-ray -- Abd & Pelvis CT -- Labs -- Urinalysis -- Reassess and disposition Prior Visits: Notes and results from previous visits were reviewed. The patient was last seen in the emergency department on 12/24/16 for seizure disorder. The patient was hospitalized. Progress Notes: On current exam in ED patient with no melena or heavy bleeding. Not hypotensive or tachycardic. He is has persistent diffuse lower abdominal pain. CT obtained and reviewed. No free air or perforation or obstruction noted. Given history of prior abodminal surgery, persistent pain, will admit for specialty consultations and serial exams. IV fluids given, daughter updated. Limitations of noncontrast ct reviewed with patient and family, as pain persistent with history of bleeding will admit to PMD's service. 03/26/17 13:34 - Lab Interpretations Lab Results: 03/25/17 10:10 03/25/17 10:10 Lab Results 03/25/17 10:10: Sodium 142, Chloride 104, Potassium 4.5, Carbon Dioxide 28, Anion Gap 15, BUN 17, Creatinine 1.1, Est GFR ( Amer) > 60, Est GFR (Non- Af Amer) > 60, Random Glucose 133 H, Calcium 9.5, Total Bilirubin 0.6, AST 31, ALT 25, Alkaline Phosphatase 52, Lactate Dehydrogenase 503, Total Creatine Kinase 58, Troponin I < 0.01, Total Protein 8.0, Albumin 4.4, Globulin 3.6, Albumin/Globulin Ratio 1.2, Amylase 121, Lipase 176 03/25/17 10:10: PT 10.9, INR 1.01, APTT 24.3 03/25/17 10:10: WBC 5.4, RBC 3.86, Hgb 12.6 L, Hct 37.4 L, MCV 96.9, MCH 32.6, MCHC 33.7, RDW 15.1 H, Plt Count 252, MPV 9.9, Gran % 45.7 L, Lymph % (Auto) 31.2, [place] % (Auto) 8.7 H, Eos % (Auto) 13.5 H, Baso % (Auto) 0.9, Gran # 2.46, Lymph # 1.7, [place] # 0.5, Eos # 0.7, Baso # 0.05 03/25/17 10:10: pO2 34, VBG pH 7.29 L, VBG pCO2 62.0 H, VBG HCO3 29.8 H, VBG Total CO2 31.7 H, VBG O2 Sat (Calc) 65.5 H, VBG Base Excess 1.6, VBG Potassium 4.6, Sodium 139.0, Chloride 104.0, Glucose 131 H, Lactate 1.9, FiO2 21.0, Venous Blood Potassium 4.6 I have reviewed the lab results: Yes - RAD Interpretation Radiology Orders: 03/25/17 10:08 ABD & PELVIS W/O PO OR IV CONT [CT] Stat CHEST ONE VIEW [RAD] Stat - Medication Orders Current Medication Orders: Albuterol/Ipratropium (Duoneb 3 Mg/0.5 Mg (3 Ml) Ud) 3 ml INH [id number] ZACK Last Admin: 03/26/17 08:45 Dose: 3 ml Clonidine HCl (Catapres Tts1 0.1 Mg/24 Hr) 1 patch TD FRI ZACK Ergocalciferol (Drisdol 50,000 Intl Units Cap) 1 cap PO Fr@1000 ZACK Famotidine (Pepcid) 20 mg PO HS ZACK Last Admin: 03/25/17 22:46 Dose: 20 mg Sodium Chloride (Sodium Chloride 0.9%) 1,000 mls @ 100 mls/hr IV .Q10H ZACK Last Admin: 03/25/17 23:58 Dose: 100 mls/hr eMAR Start Stop Document 03/25/17 23:58 [facility] (Rec: 03/25/17 23:58 [id number] Intravenous Solution Start Date 03/25/17 Start Time 11:30 Pantoprazole Sodium (Protonix Inj) 40 mg IVP DAILY ZACK Discontinued Medications Famotidine (Pepcid) 20 mg IVP STAT STA Stop: 03/25/17 12:46 Last Admin: 03/25/17 13:00 Dose: 20 mg IVP Administration Document 03/25/17 13:00 SRE (Rec: 03/25/17 13:00 SRE [id number]) Charges for Administration # of IVP Administrations 1 Pneumococcal Polyvalent Vaccine (Pneumovax 23 Vaccine) 0.5 ml IM .ONCE ONE Stop: 03/25/17 14:35 - Scribe Statement The provider has reviewed the documentation as recorded by the Ashley Healy Provider Scribe Attestation: All medical record entries made by the Roxieibjessica were at my direction and personally dictated by me. I have reviewed the chart and agree that the record accurately reflects my personal performance of the history, physical exam, medical decision making, and the department course for this patient. I have also personally directed, reviewed, and agree with the discharge instructions and disposition. Disposition/Present on Arrival - Present on Arrival Any Indicators Present on Arrival: No History of DVT/PE: No History of Uncontrolled Diabetes: No Urinary Catheter: No History of Decub. Ulcer: No History Surgical Site Infection Following: None - Disposition Have Diagnosis and Disposition been Completed?: Yes Diagnosis: Abdominal pain, GI bleed Disposition: HOSPITALIZED Disposition Time: 11:10 Patient Plan: Admission Condition: FAIR
[2017-03-25 10:36] LABS: VENOUS BLOOD GAS BASE EXCESS 1.6 mmol/L (0.0-2.0); VENOUS BLOOD PH 7.29 (7.32-7.43)
[2017-03-25 10:41] LABS: BASO # 0.05 K/mm3 (0.0-2.0); BASO % 0.9 % (0.0-3.0); EOS # 0.7 (0.0-0.7); EOS % 13.5 % (1.5-5.0); GRAN # 2.46 (1.4-6.5); GRAN % 45.7 % (50.0-68.0); HEMATOCRIT 37.4 % (42.0-52.0); LYMPH # 1.7 (1.2-3.4); LYMPH % 31.2 % (22.0-35.0); MEAN CELL VOLUME 96.9 fl (80.0-105.0); MEAN CORPUSCULAR HEMOGLOBIN 32.6 pg (25.0-35.0); MEAN CORPUSCULAR HGB CONC 33.7 g/dl (31.0-37.0); MEAN PLATELET VOLUME 9.9 fl (7.0-11.0); MONO # 0.5 (0.1-0.6); MONO % 8.7 % (1.0-6.0); RED CELL DISTRIBUTION WIDTH 15.1 % (11.5-14.5); WHITE BLOOD COUNT 5.4 10^3/ul (4.5-11.0)
[2017-03-25 10:47] LABS: INR 1.01 (0.93-1.08); PARTIAL THROMBOPLASTIN TIME 24.3 Seconds (23.7-30.8)
[2017-03-25 10:51] LABS: ALB/GLOB RATIO 1.2 (1.1-1.8); ALKALINE PHOSPHATASE 52 U/L (38-126); ALT/SGPT 25 U/L (7-56); AMYLASE 121 U/L (35-125); AST/SGOT 31 U/L (17-59); BILIRUBIN,TOTAL 0.6 mg/dL (0.2-1.3); BLOOD UREA NITROGEN 17 mg/dL (7-21); CALCIUM 9.5 mg/dL (8.4-10.5); CARBON DIOXIDE 28 mmol/L (21-33); CHLORIDE 104 mmol/L (98-107); GFR AFRICAN-AMERICAN > 60; GLUCOSE,RANDOM 133 mg/dL (70-110); LIPASE 176 U/L (23-300); POTASSIUM 4.5 mmol/L (3.6-5.0); SODIUM 142 mmol/L (132-148)
--- NOTE | 2017-03-25 11:00 | CT ---
PROCEDURE: CT Abdomen and Pelvis without intravenous contrast HISTORY: gi bleed, abdominal pain COMPARISON: None. TECHNIQUE: Without contrast.. Contrast Dose: Radiation dose: Total exam DLP = 189 mGy-cm. This CT exam was performed using one or more of the following dose reduction techniques: Automated exposure control, adjustment of the mA and/or kV according to patient size, and/or use of iterative reconstruction technique. FINDINGS: LOWER THORAX: Unremarkable. LIVER: Unremarkable. No gross lesion or ductal dilatation. GALLBLADDER AND BILE DUCTS: Unremarkable. PANCREAS: Unremarkable. No gross lesion or ductal dilatation. SPLEEN: Unremarkable. ADRENALS: Unremarkable. No mass. KIDNEYS AND URETERS: Unremarkable. No hydronephrosis. No solid mass. VASCULATURE: Extensive vascular calcification BOWEL: There is a suture line in the descending colon with mural thickening in this region. This finding is unchanged. There is no evidence of acute diverticulitis. APPENDIX: Unremarkable. Normal appendix. PERITONEUM: Unremarkable. No free fluid. No free air. LYMPH NODES: Unremarkable. No enlarged lymph nodes. BLADDER: Unremarkable. REPRODUCTIVE: Unremarkable. BONES: Severe disc degeneration L4-5 and L5-S1 OTHER FINDINGS: None. IMPRESSION: Suture line in the descending colon with mural thickening unchanged from prior study. No evidence of acute diverticulitis
[2017-03-25 11:03] LABS: TROPONIN I < 0.01 ng/mL
--- NOTE | 2017-03-25 12:19 | RAD ---
PROCEDURE: CHEST RADIOGRAPH, 1 VIEW HISTORY: gi bleed COMPARISON: 12/23/2016. FINDINGS: LUNGS: The lungs are well inflated without focal consolidation. There is a stable tiny nodule in the left lower lobe PLEURA: No pneumothorax or pleural fluid seen. CARDIOVASCULAR: Normal. OSSEOUS STRUCTURES: No significant abnormalities. VISUALIZED UPPER ABDOMEN: Normal. OTHER FINDINGS: None. IMPRESSION: No active pulmonary disease.
[2017-03-25] MEDS: Sodium Chloride 0.9% 1,000 ML IV SCH ×2 (12:59→23:58)
[2017-03-25] MEDS ORDERED: Pneumococcal 23-Valent Vaccine IM ONE (14:34)
--- NOTE | 2017-03-25 15:00 | CP.PCM.CON ---
History of Present Illness - History of Present Illness History of Present Illness: Surgery Consult Note for Dr. Barrera We are being consulted for LLQ Discomfort HPI: Patient presented to the ED with his daughter complaining of lower abdominal pain for 2 days duration and dark colored bloody stool this morning at 0300 following an period of increased abdominal pain. Abdominal pain radiating to the back. Patient is no longer having abdominal pain. Has completely resolved as the time we examined him. Has had no further episodes of bloody stools. Denies hematemesis, Vomiting, Chills, Fever, chest pain, sob. PMH: HTN, DM, EMILE, diverticulitis, CAD w/stents, seizures, L. inguinal hernia and infected mesh followed by fistula formation resulting in sigmoid resection PSH: L. inguinal hernia repair, I/d of inguinal abscess, Sigmoid resection FH: Noncontributory SH: with three kids, stopped smoking 30 years ago, denies alcohol, denies illegal drugs Meds: see mar Allergies: KNA Review of Systems - Constitutional Constitutional: As Per HPI - EENT Eyes: As Per HPI Ears: As Per HPI Nose/Mouth/Throat: As Per HPI - Cardiovascular Cardiovascular: As Per HPI - Respiratory Respiratory: As Per HPI - Gastrointestinal Gastrointestinal: As Per HPI - Genitourinary Genitourinary: As Per HPI - Reproductive: Male Reproductive:Male: As Per HPI - Musculoskeletal Musculoskeletal: As Per HPI - Integumentary Integumentary: As Per HPI - Neurological Neurological: As Per HPI - Psychiatric Psychiatric: As Per HPI - Endocrine Endocrine: As Per HPI - Hematologic/Lymphatic Hematologic: As Per HPI Past Patient History - Infectious Disease Hx of Infectious Diseases: None - Tetanus Immunizations Tetanus Immunization: Unknown - Past Social History Smoking Status: Former Smoker - CARDIAC Hx Cardiac Disorders: Yes Hx Hypertension: Yes - PULMONARY Hx Respiratory Disorders: Yes (USED TO SMOKE CIGARETTES.SMOKED SOCIALLY. QUIT 20 YRS AGO) - NEUROLOGICAL Hx Neurological Disorder: Yes Hx Seizures: Yes (DENIES) - HEENT Hx HEENT Problems: Yes Hx Cataracts: Yes (b/l sx) - RENAL Hx Kidney Stones: No - ENDOCRINE/METABOLIC Hx Endocrine Disorders: Yes Hx Diabetes Mellitus Type 2: Yes Hx Hypothyroidism: Yes - HEMATOLOGICAL/ONCOLOGICAL Hx Blood Disorders: Yes Other/Comment: vitamin d deficiency - INTEGUMENTARY Hx Dermatological Problems: Yes Other/Comment: ble skin discoloration, llq abd ddressings x2 dry and intact over i&d site - MUSCULOSKELETAL/RHEUMATOLOGICAL Hx Musculoskeletal Disorders: Yes Hx Falls: No Hx Unsteady Gait: Yes (WALKER) - GASTROINTESTINAL Hx Gastrointestinal Disorders: Yes (hiatal hernia, gi bleed) - GENITOURINARY/GYNECOLOGICAL Hx Genitourinary Disorders: No - PSYCHIATRIC Hx Psychophysiologic Disorder: No Hx Substance Use: No - SURGICAL HISTORY Hx Surgeries: Yes Hx Coronary Stent: Yes (x2) Other/Comment: left inguinal hernia sx with mesh, abcess removed and I&d 11/18/16 infected mesh removed, Left inguinal fistula - ANESTHESIA Hx Anesthesia Reactions: No Hx Malignant Hyperthermia: No Meds Allergies/Adverse Reactions: Allergies Allergy/AdvReac Type Severity Reaction Status Date / Time No Known Allergies Allergy Verified 03/25/17 14:12 - Medications Medications: Current Medications Sodium Chloride (Sodium Chloride 0.9%) 1,000 mls @ 100 mls/hr IV .Q10H ZACK Last Admin: 03/25/17 12:59 Dose: 100 mls/hr Physical Exam - Constitutional Appears: Well, Non-toxic, No Acute Distress - Head Exam Head Exam: ATRAUMATIC, NORMAL INSPECTION, NORMOCEPHALIC - Eye Exam Eye Exam: EOMI, PERRL Pupil Exam: NORMAL ACCOMODATION - ENT Exam ENT Exam: Mucous Membranes Moist - Respiratory Exam Respiratory Exam: Clear to Auscultation Bilateral, NORMAL BREATHING PATTERN - Cardiovascular Exam Cardiovascular Exam: REGULAR RHYTHM - GI/Abdominal Exam GI & Abdominal Exam: Normal Bowel Sounds, Soft. absent: Distended, Tenderness - Rectal Exam Rectal Exam: absent: Black Stool, Bloody Stool, Hemorrhoids, Fecal Impaction, NORMAL INSPECTION Additional comments: normal tone, no blood, prostate smooth, none tender, no nodules Results - Vital Signs Recent Vital Signs: Last Vital Signs Temp 96.4 F L 03/25/17 14:13 Pulse 49 L 03/25/17 14:13 Resp 18 03/25/17 14:13 BP 152/77 H 03/25/17 14:13 Pulse Ox 99 03/25/17 13:09 - Labs Result Diagrams: 03/25/17 10:10 03/25/17 10:10 Assessment & Plan - Assessment and Plan (Free Text) Assessment: 81M with abdominal pain Plan: * No surgical intervention at this time * follow up GI reccs, possible colonoscopy * advanced diet as tolerated per GI * Further reccs per Dr. Bruce Comer PGY1 - Date & Time Date: 03/25/17 Time: 16:13
--- NOTE | 2017-03-25 20:07 | CON ---
PULMONARY CONSULTATION DATE: 03/25/2017 REFERRING PHYSICIAN: Dr. Ramirez. REASON FOR CONSULTATION: Obstructive sleep apnea syndrome, history of seizure disorder, coronary artery disease, history of laparotomy, comes in with hematochezia and lower abdominal pain. No fever. No chills. No hemoptysis. No hematemesis. No leg pain or leg swelling. PAST MEDICAL HISTORY: Significant for seizure disorder, suspected obstructive sleep apnea syndrome, chronic diverticulitis, coronary artery disease, also has a history of diabetes, history of abdominal abscess with infected mesh in the past and had a hemicolectomy. ALLERGIES: NONE KNOWN. FAMILY HISTORY: No significant cardiopulmonary disease reported. SOCIAL HISTORY: Nonsmoker. Nondrinker. REVIEW OF SYSTEMS: No headache. No rhinitis. Nighttime snoring and daytime sleepy. No chest pain. Had a lower abdominal pain and hematochezia. No leg pain. No swelling. PHYSICAL EXAMINATION: GENERAL: Lying in the bed, no acute distress. VITAL SIGNS: Temperature is 98, heart rate is 54, respiratory rate is 20, blood pressure 170/87 and pulse ox 99% on room air. HEENT: Moist mucous membranes. Small oral cavity. Crowded airway. NECK: Supple. No JVD. LUNGS: Fair airflow with few rhonchi. HEART: S1 and S2. ABDOMEN: Positive bowel sounds. Had a midline surgical scar, healed well. Mild tenderness on palpation. EXTREMITIES: There is no edema. NEUROLOGIC: Awake and alert. Follow simple commands. LABORATORY DATA: Shows hemoglobin 12.6, hematocrit 37.4, WBC 5.4 and platelets 252. INR 1.01, PTT 24. Venous blood gas showed pH 7.29, pCO2 is 62 and O2 34. Sodium 142, potassium 4.5, chloride 1.4, bicarbonate is 28, BUN 17, creatinine 1.1, glucose 133, calcium 9.5, AST 21, ALT 25, alkaline phosphatase 52 and LDH is 503. Troponin less than 0.01. Lipase is 176, amylase is 121 and cortisol level 19.5 that was 2 months ago. Microbiology; urine and blood cultures have been negative. IMPRESSION AND PLAN: Hematochezia, history of hiatal hernia, gastric ulcer, esophagitis, constipation, basal atelectasis, status post laparotomy with hemicolectomy for infected mesh and colitis. The patient needs to see GI and surgeon. Pulmonary point of view, sedation. The patient is supposed to have a sleep study as outpatient. Never made appointment. If sedating, needs close cardiopulmonary monitoring. Thank you and we will follow with you. Dakotah Farrar MD
[2017-03-25] MEDS: Albuterol-Ipratrop 3 mg / 0.5 (3 ml) UD INH SCH (22:09)
[2017-03-26] MEDS: Albuterol-Ipratrop 3 mg / 0.5 (3 ml) UD INH SCH ×4 (03:10→22:10)
[2017-03-26 06:59] LABS: HEMATOCRIT 36.1 % (42.0-52.0); MEAN CELL VOLUME 96.5 fl (80.0-105.0); MEAN CORPUSCULAR HEMOGLOBIN 32.1 pg (25.0-35.0); MEAN CORPUSCULAR HGB CONC 33.2 g/dl (31.0-37.0); MEAN PLATELET VOLUME 9.9 fl (7.0-11.0); RED CELL DISTRIBUTION WIDTH 14.9 % (11.5-14.5)
[2017-03-26] MEDS ORDERED: Barium Sulfate Susp 2.1% w/v, 2.0% w/w 450 mL Bottle PO ONE (07:05)
[2017-03-26 07:15] LABS: IRON 102 ug/dL (45-180)
--- NOTE | 2017-03-26 07:24 | CP.PCM.PN ---
Subjective - Date & Time of Evaluation Date of Evaluation: 03/26/17 Time of Evaluation: 06:45 - Subjective Subjective: General Surgery Progress Note for Dr. Barrera Patient seen and examined at bedside. No acute event overnight. Patient states pain has resolved. He has no complaints. Objective - Vital Signs/Intake and Output Vital Signs (last 24 hours): Temp Pulse Resp BP Pulse Ox 98.6 F 54 L 20 170/87 H 99 03/25/17 16:00 03/25/17 16:00 03/25/17 16:00 03/25/17 16:00 03/25/17 16:00 Intake and Output: 03/26/17 03/26/17 06:59 18:59 Intake Total 420 Output Total 1150 Balance -730 - Medications Medications: Current Medications Albuterol/Ipratropium (Duoneb 3 Mg/0.5 Mg (3 Ml) Ud) 3 ml INH [id number] ZACK Last Admin: 03/26/17 03:10 Dose: 3 ml Clonidine HCl (Catapres Tts1 0.1 Mg/24 Hr) 1 patch TD FRI ZACK Ergocalciferol (Drisdol 50,000 Intl Units Cap) 1 cap PO Fr@1000 ZACK Famotidine (Pepcid) 20 mg PO HS ZACK Last Admin: 03/25/17 22:46 Dose: 20 mg Sodium Chloride (Sodium Chloride 0.9%) 1,000 mls @ 100 mls/hr IV .Q10H ZACK Last Admin: 03/25/17 23:58 Dose: 100 mls/hr - Labs Labs: PT 10.9 Seconds (9.9-11.8) 03/25/17 10:10 INR 1.01 (0.93-1.08) 03/25/17 10:10 APTT 24.3 Seconds (23.7-30.8) 03/25/17 10:10 - Constitutional Appears: No Acute Distress - Head Exam Head Exam: ATRAUMATIC, NORMOCEPHALIC - Eye Exam Eye Exam: Normal appearance - ENT Exam ENT Exam: Mucous Membranes Moist - Respiratory Exam Respiratory Exam: NORMAL BREATHING PATTERN - Cardiovascular Exam Cardiovascular Exam: REGULAR RHYTHM - GI/Abdominal Exam GI & Abdominal Exam: Soft. absent: Distended, Guarding, Tenderness, Rebound - Extremities Exam Extremities Exam: Normal Capillary Refill - Neurological Exam Neurological Exam: Alert, Awake, Oriented x3 - Psychiatric Exam Psychiatric exam: Normal Affect, Normal Mood - Skin Skin Exam: Dry, Intact, Normal Color, Warm Assessment and Plan - Assessment and Plan (Free Text) Plan: 81M with abdominal pain follow up GI, endoscopy Management as per primary No surgical intervention at this time DW Dr. Bruce Amador PGY1
[2017-03-26 08:14] LABS: ALB/GLOB RATIO 1.2 (1.1-1.8); ALKALINE PHOSPHATASE 52 U/L (38-126); ALT/SGPT 22 U/L (7-56); AST/SGOT 20 U/L (17-59); BILIRUBIN,DIRECT 0.3 mg/dL (0.0-0.4); BILIRUBIN,TOTAL 0.4 mg/dL (0.2-1.3); BLOOD UREA NITROGEN 11 mg/dL (7-21); CALCIUM 8.8 mg/dL (8.4-10.5); CARBON DIOXIDE 24 mmol/L (21-33); CHLORIDE 107 mmol/L (98-107); CHOLESTEROL 147 mg/dL (130-200); GFR AFRICAN-AMERICAN > 60; GLUCOSE,RANDOM 102 mg/dL (70-110); SODIUM 142 mmol/L (132-148); TOTAL PROTEIN 7.1 g/dL (5.8-8.3)
--- NOTE | 2017-03-26 08:57 | HP ---
CHIEF COMPLAINT: Gastrointestinal bleeding. HISTORY OF PRESENT ILLNESS: Mr. Gabriela Page is a 81-year-old male with a past medical history of rectal bleeding, seizure, sleep apnea syndrome, acute constipation, diverticulitis, coronary artery disease, and a history of abdominal surgery, came to the emergency room, accompanying with his daughter for lower abdominal pain and dark bloody stool. The patient reports that his lower abdominal pain began yesterday and radiates to his lower back. The patient states that this morning the patient increased pressure and went to the bathroom, saw dark-colored bloody stool. The patient admits to still having an appetite and eating food that his daughter prepares for him, chicken and fish. He denies any fevers, chills, nausea, vomiting, headache, or dizziness. The patient has a history of constipation. PAST MEDICAL HISTORY: Hypertension, cataract, diabetes type 2, hypothyroidism, hiatal hernia, history of GI bleeding, anemia status post blood transfusion, coronary artery disease, cardiac stents x2, history of left inguinal hernia repair with mesh, abscess removed, infected mesh removed, and left inguinal fistula. FAMILY HISTORY: Father and mother noncontributory. HABITS: No smoking, no drugs, and no ethanol. ALLERGIES: THE PATIENT IS NOT ALLERGIC WITH ANY MEDICATION. HOME MEDICATIONS: On Zestril, Mobic, omega-3, ranitidine, Norvasc, acetaminophen, DuoNeb, Lipitor, vitamin D, Ambien, clonidine, REVIEW OF SYSTEMS: The patient was seen and examined on the bedside. lookimg comfortablr , no n,v,d Hannah Ramirez MD MTDGini
[2017-03-26] MEDS ORDERED: Iohexol 300 100 ML IJ ONE (11:11)
--- NOTE | 2017-03-26 11:40 | CARD ---
APPROVED REPORT EKG Measurement Heart [id number] MD [id number] <Conclusion> Normal sinus rhythm Left Axix.
--- NOTE | 2017-03-26 12:00 | CP.PCM.PN ---
<Rhiannon Rm - Last Filed: 03/26/17 11:54> Subjective - Date & Time of Evaluation Date of Evaluation: 03/26/17 Time of Evaluation: 09:25 - Subjective Subjective: Seen and examined at the bedside earlier this morning, chart was reviewed. Patient drank oral contrast for repeat CT scan of abdomen and pelvis, denies nausea, vomiting, or abdominal pain. He had a BM this morning and denies any melena or bright red blood per rectum. No acute overnight events reported. Objective - Vital Signs/Intake and Output Vital Signs (last 24 hours): Temp Pulse Resp BP Pulse Ox 97.6 F 56 L 20 134/74 98 03/26/17 06:00 03/26/17 06:00 03/26/17 06:00 03/26/17 06:00 03/26/17 06:00 Intake and Output: 03/26/17 03/26/17 06:59 18:59 Intake Total 420 Output Total 1150 Balance -730 - Medications Medications: Current Medications Albuterol/Ipratropium (Duoneb 3 Mg/0.5 Mg (3 Ml) Ud) 3 ml INH [id number] [facility] Last Admin: 03/26/17 08:45 Dose: 3 ml Clonidine HCl (Catapres Tts1 0.1 Mg/24 Hr) 1 patch TD FRI ZACK Ergocalciferol (Drisdol 50,000 Intl Units Cap) 1 cap PO Fr@1000 ZACK Famotidine (Pepcid) 20 mg PO HS [facility] Last Admin: 03/25/17 22:46 Dose: 20 mg Sodium Chloride (Sodium Chloride 0.9%) 1,000 mls @ 100 mls/hr IV .Q10H ZACK Last Admin: 03/25/17 23:58 Dose: 100 mls/hr - Labs Labs: 03/26/17 06:51 03/26/17 07:40 PT 10.9 Seconds (9.9-11.8) 03/25/17 10:10 INR 1.01 (0.93-1.08) 03/25/17 10:10 APTT 24.3 Seconds (23.7-30.8) 03/25/17 10:10 - Constitutional Appears: No Acute Distress - Eye Exam Eye Exam: Normal appearance. absent: Scleral icterus - ENT Exam ENT Exam: Mucous Membranes Moist - Neck Exam Neck Exam: Normal Inspection - Respiratory Exam Respiratory Exam: NORMAL BREATHING PATTERN. absent: Respiratory Distress - Cardiovascular Exam Cardiovascular Exam: +S1, +S2 - GI/Abdominal Exam GI & Abdominal Exam: Soft, Normal Bowel Sounds. absent: Guarding, Tenderness, Organomegaly, Rebound - Extremities Exam Extremities Exam: Normal Capillary Refill. absent: Calf Tenderness, Pedal Edema - Neurological Exam Neurological Exam: Alert, Awake, Oriented x3 - Skin Skin Exam: Dry, Warm Assessment and Plan - Assessment and Plan (Free Text) Assessment: Assessment: Abdominal pain GI bleed, status post bloody stool History of duodenal ulcers History of coronary artery disease with stents History of left inguinal hernia with infected mesh status post sigmoid resection and hernia repair Hypertension Diabetes mellitus Plan: Follow-up repeat CT scan of abdomen and pelvis with IV and oral contrast On clear liquids Start patient on Protonix 40 IV daily Monitor H&H which is stable and for overt GI bleed Will plan for endoscopy tomorrow, nothing by mouth post midnight Discussed plan with Dr. Ramirez who was at the bedside. Seen and discussed with Dr. Osorio. <Hernan Osorio V - Last Filed: 03/26/17 21:26> Objective - Vital Signs/Intake and Output Vital Signs (last 24 hours): Temp Pulse Resp BP Pulse Ox 97.7 F 65 20 163/80 H 90 L 03/26/17 16:00 03/26/17 16:00 03/26/17 16:00 03/26/17 16:00 03/26/17 16:00 Intake and Output: 03/26/17 03/27/17 18:59 06:59 Intake Total 480 Output Total 300 Balance 180 - Medications Medications: Current Medications Albuterol/Ipratropium (Duoneb 3 Mg/0.5 Mg (3 Ml) Ud) 3 ml INH [id number] ZACK Last Admin: 03/26/17 14:09 Dose: 3 ml Clonidine HCl (Catapres Tts1 0.1 Mg/24 Hr) 1 patch TD FRI ZACK Ergocalciferol (Drisdol 50,000 Intl Units Cap) 1 cap PO Fr@1000 ZACK Famotidine (Pepcid) 20 mg PO HS ZACK Last Admin: 03/25/17 22:46 Dose: 20 mg Sodium Chloride (Sodium Chloride 0.9%) 1,000 mls @ 100 mls/hr IV .Q10H ZACK Last Admin: 03/25/17 23:58 Dose: 100 mls/hr Ketorolac Tromethamine (Toradol) 15 mg IVP Q4 PRN PRN Reason: Pain, severe (8-10) Pantoprazole Sodium (Protonix Inj) 40 mg IVP DAILY ZACK Last Admin: 03/26/17 13:00 Dose: 40 mg - Labs Labs: 03/26/17 06:51 03/26/17 07:40 PT 10.9 Seconds (9.9-11.8) 03/25/17 10:10 INR 1.01 (0.93-1.08) 03/25/17 10:10 APTT 24.3 Seconds (23.7-30.8) 03/25/17 10:10 Attending/Attestation - Attestation I have personally seen and examined this patient.: Yes I have fully participated in the care of the patient.: Yes I have reviewed all pertinent clinical information, including history, physical exam and plan: Yes Notes (Text): This is an addendum to GI progress report dictated by Rhiannon Rm APN.The patient was seen and examined earlier. Medical records, lab studies, imagings were reviewed. Last 24 hours events reviewed. Agreed with the above treatment plan as outlined in Rhiannon Rm APN's notes the with the addition of the following No vomiting tolerating the diet. The CT scan was reviewed shows some thickening in the colon and diverticulosis patient's daughter was at bedside at the time of examination discussed with the patient lying in the daughter agree with further endoscopy scheduled for tomorrow patient Patient with history of GI bleeding peptic ulcer disease before poorly compliant reasonable to do an inpatient endoscopy Close follow-up hemoglobin and hematocrit and continue PPI 03/26/17 21:25
--- NOTE | 2017-03-26 12:28 | CT ---
PROCEDURE: CT Abdomen and Pelvis with contrast HISTORY: abd pain, bloody BM COMPARISON: 03/25/2017 TECHNIQUE: Contrast dose: 100 cc of Omni 350 Radiation dose: Total exam DLP = 185 mGy-cm. This CT exam was performed using one or more of the following dose reduction techniques: Automated exposure control, adjustment of the mA and/or kV according to patient size, and/or use of iterative reconstruction technique. FINDINGS: LOWER THORAX: Unremarkable. LIVER: Unremarkable. No gross lesion or ductal dilatation. GALLBLADDER AND BILE DUCTS: Unremarkable. PANCREAS: Unremarkable. No gross lesion or ductal dilatation. SPLEEN: Unremarkable. ADRENALS: Unremarkable. No mass. KIDNEYS AND URETERS: Unremarkable. No hydronephrosis. No solid mass. VASCULATURE: Unremarkable. No aortic aneurysm. BOWEL: There is diverticulosis and mural thickening in the sigmoid colon. There is a surgical anastomosis at the junction of the descending colon and sigmoid colon with focal dilatation. APPENDIX: Normal appendix. PERITONEUM: Unremarkable. No free fluid. No free air. LYMPH NODES: Unremarkable. No enlarged lymph nodes. BLADDER: Unremarkable. REPRODUCTIVE: Unremarkable. BONES: No acute fracture. OTHER FINDINGS: None. IMPRESSION: Diverticulosis some mural thickening in the sigmoid colon. Mural thickening around the surgical anastomosis at the junction of the descending and sigmoid colon.
[2017-03-26 13:16] LABS: FOLATE > 20.0 ng/mL
--- NOTE | 2017-03-27 00:42 | PN ---
PULMONARY PROGRESS NOTE DATE: 03/26/2017 REFERRING PHYSICIAN: Hannah Ramirez MD SUBJECTIVE: He was seen by me around noontime or so waiting for endoscopy. He has a mild cough. No sputum production. No nausea, no vomiting, no more bloody stool. No leg pain or leg swelling. OBJECTIVE GENERAL: In no acute distress. VITAL SIGNS: Temperature is 98, heart rate is 65, respiratory rate is 20, blood pressure is 163/80 and pulse oximetry is 98% on nasal cannula. HEENT: Moist mucous membranes. Small oral cavity. Crowded airway. NECK: Supple. No JVD. HEART: S1 and S2. LUNGS: Has fair airflow with few rhonchi. ABDOMEN: Soft and nontender. No organomegaly. EXTREMITIES: There is no edema. NEUROLOGIC: Awake and alert. Follows simple commands. LABORATORY DATA: Shows hemoglobin of 12.0, hematocrit of 36.1, WBC of 6.0, and platelet count is 230. Sodium is 142, potassium is 4.0, chloride is 107, bicarbonate is 24, BUN is 11, and creatinine is 0.9. Glucose is 102 and calcium is 8.8. AST is 20, ALT is 22, and alkaline phosphatase is 52. Albumin is 3.8 and cholesterol is 147. Vitamin B12 of 521, and folate level more than 20. TSH is 2.39. DIAGNOSTIC DATA: Has a CAT scan of the abdomen and pelvis done, which shows diverticulosis, some mural thickening in the sigmoid colon, mural thickening around the surgical anastomosis at the junction of the descending and sigmoid colon. MEDICATIONS: He is on Catapres patch 0.1 mg weekly, also on vitamin D 50,000 units weekly, q. 6 hours, Pepcid 20 mg at bedtime, Protonix 40 mg daily, IV fluid normal saline 100 mL per hour, and Toradol 15 mg IV q. 4 hours p.r.n. IMPRESSION AND PLAN: Gastrointestinal bleed, history of partial hemicolectomy with anastomosis, history of hiatal hernia, gastric ulcer disease, esophagitis, basal atelectasis on the x-rays, has a sleep apnea syndrome, and mild bronchitis. Continue present care, bronchodilator, keeping at 45 degrees, gastric prophylaxis and sequential compression devices to lower extremities. The patient seen by Gastrointestinal, schedule for endoscopy in the morning. We will suggest sleep apnea precaution, keep close cardiopulmonary monitoring and sedated, sleep study upon discharge as outpatient. Thank you and we will follow with you. Dakotah Farrar MD
[2017-03-27] MEDS: Albuterol-Ipratrop 3 mg / 0.5 (3 ml) UD INH SCH ×3 (02:55→13:50)
[2017-03-27 07:14] LABS: HEMATOCRIT 34.6 % (42.0-52.0); MEAN CELL VOLUME 96.1 fl (80.0-105.0); MEAN CORPUSCULAR HEMOGLOBIN 32.2 pg (25.0-35.0); MEAN CORPUSCULAR HGB CONC 33.5 g/dl (31.0-37.0); MEAN PLATELET VOLUME 9.5 fl (7.0-11.0); RED CELL DISTRIBUTION WIDTH 14.8 % (11.5-14.5); WHITE BLOOD COUNT 5.9 10^3/ul (4.5-11.0)
[2017-03-27 07:29] LABS: BLOOD UREA NITROGEN 7 mg/dL (7-21); CALCIUM 8.8 mg/dL (8.4-10.5); CARBON DIOXIDE 25 mmol/L (21-33); CHLORIDE 108 mmol/L (95-110); GFR AFRICAN-AMERICAN > 60; GLUCOSE,RANDOM 97 mg/dL (70-110); POTASSIUM 3.7 mmol/L (3.6-5.0); SODIUM 142 mmol/L (132-148)
--- NOTE | 2017-03-27 08:58 | HP ---
ADDENDUM REVIEW OF SYSTEMS: No headache. No fever. No chills. No nausea or vomiting. Only dark black blood in the stool. He had lower abdominal pain and hematochezia. No swelling of the legs. PHYSICAL EXAMINATION: VITAL SIGNS: Temperature 98, heart rate 54, respiratory rate 20, blood pressure 170/87, and pulse oximetry 99% on room air. HEENT: Head is normocephalic and atraumatic. Eyes: PERRLA. Extraocular muscles are intact. Conjunctivae clear. Nose is patent. Mucous membrane is moist. NECK: Supple. No carotid bruit. No JVD or thyromegaly. CHEST: Bilaterally symmetrical. HEART: S1 and S2 positive. LUNGS: Clear to auscultation. ABDOMEN: Soft. Bowel sounds positive. No organomegaly. EXTREMITIES: No edema. No cyanosis. NEUROLOGIC: The patient is awake and alert. Moving all 4 extremities. No focal deficit. LABORATORY DATA: Hemoglobin 12.6, hematocrit 37.4, white blood cell is 5.4, and platelets 252. Sodium 142, potassium 4.5, BUN 17, creatinine 1.1, and glucose 133. Calcium 9.5, AST 21, and ALT 25. Troponin is less than 0.01, lipase 176, and amylase 121. ASSESSMENT AND PLAN: Mr. Gabriela Page with history of multiple medical problems, came with hematochezia, black blood in the stool, history of hiatal hernia, gastric ulcers, esophagitis, constipation, basal atelectasis, status post laparotomy with hemicolectomy, infected mesh, and colitis. The patient needs to see Gastroenterology and Surgeon. Gastroenterology and Surgeon is on the case. The patient is supposed to have sleep study as outpatient, but the patient is noncompliant, never came back, length of time discussion done with the patient's both daughters and they will do followup. Hannah Ramirez MD
--- NOTE | 2017-03-27 08:58 | PN ---
DATE: 03/26/2017 SUBJECTIVE: The patient is a 81-year-old male. The patient was seen and examined on the bedside early in the morning. Nurse practitioner of Rhiannon Vazquez was standing on the bedside also. The patient drank oral contrast for repeat CT scan of abdomen and pelvis. No nausea or vomiting. According to him, he has good bowel movement today without blood . No melena. No hematuria. No hematochezia. No hemorrhoids. No fever. No chills. PHYSICAL EXAMINATION: VITAL SIGNS: Temperature 97.6, pulse 56, respiratory rate 20, blood pressure 134/74, and pulse oximetry 98. HEENT: Head is normocephalic and atraumatic. Eyes: PERRLA. Extraocular muscles are intact. Conjunctivae are clear. Nose is patent. NECK: Supple. No carotid bruits, JVD or thyromegaly. CHEST: Bilaterally symmetrical. HEART: S1 and S2 positive. LUNGS: Clear to auscultation. ABDOMEN: Soft. Bowel sounds present. No organomegaly. EXTREMITIES: No edema. No cyanosis. NEUROLOGIC: The patient is awake and alert. Moving all four extremities. No focal deficits. MEDICATIONS: DuoNeb, Catapres, vitamin D, and NS. LABORATORY DATA: White blood cell 6.0, hemoglobin 12.0, hematocrit 36.1, and platelets 230. Sodium 142, potassium 4.0, BUN 11, creatinine 0.9, and glucose 102. ASSESSMENT AND PLAN: a 81-year-old male with anemia, history of abdominal pain, gastrointestinal bleeding, status post bloody stool, history of duodenal ulcer, history of coronary artery disease with cardiac stenting, history of left inguinal hernia with infected mesh, status post sigmoid resection, hernia repair, hypertension, and diabetes mellitus. The patient is on clear liquid. Start the patient on Protonix. Monitoring hemoglobin and hematocrit. According to gastrointestinal, the patient need endoscopy and they will schedule tomorrow. CAT scan of the abdomen and pelvis done showed diverticulosis, some mural thickening in the sigmoid colon and mural thickening around the surgical anastomosis at the junction of the descending and sigmoid colon. Discussion done with Rhiannon Rm. Seen by the surgical team and Dr. Farrar also. History of constipation, gastric ulcer, status post laparotomy with hemicolectomy. GI and Surgery both are on the case. The patient is noncompliant as outpatient, never coming back for followup. Gastrointestinal and deep vein thrombosis prophylaxis. We will followup. Hannah Ramirez MD [facility]TD[facility]ini
[2017-03-27] MEDS ORDERED: Propofol 10 mg/ml Inj (20 ML) ONE (10:07)
[2017-03-27] MEDS ORDERED: Etomidate 20 mg/10ml Inj IV ONE (10:10)
[2017-03-27] MEDS ORDERED: Lidocaine 2% Inj (20ml) ONE (10:10)
[2017-03-27] MEDS ORDERED: Sodium Chloride 0.9% 1,000 ML IV SCH (10:30)
[2017-03-27 10:42] VITALS: TEMP 98.3
[2017-03-27 11:05] VITALS: BP 172/80; PULSE 67; RESP 19; O2SAT 97
[2017-03-28] MEDS ORDERED: Ergocalciferol 50,000 Intl Units Cap PO SCH (10:00)
--- NOTE | 2017-03-28 21:33 | DS ---
CHIEF COMPLAINT: Blood in the stool. HISTORY OF PRESENT ILLNESS: Mr. Gabriela Page is a 81-year-old male with past medical history of rectal bleeding, seizure, sleep apnea syndrome, acute constipation, diverticulitis, coronary artery disease, and history of abdominal surgery, came to the emergency room accompanying with his daughter for lower abdominal pain and dark bloody stool. The patient reports that his lower abdominal pain began yesterday and radiates to the lower back. We admitted the patient, did CAT scan of the abdomen and pelvis x2. Did upper endoscopy by Dr. Osorio. Dr. Osorio consult called, Dr. Farrar consult called and surgical consult called by Dr. Barrera. The patient was given food after endoscopy. He tolerated the food very well. I spoke with Dr. Osorio couple of times. He cleared the patient for discharge. Will have to keep his H and H, if H and H will drop, then the patient need colonoscopy as an outpatient. The patient is discharged home with the same medications . PAST MEDICAL HISTORY: Hypertension, diabetes mellitus, hypothyroidism, hiatal hernia, history of GI bleeding, anemia status post blood transfusion, coronary artery disease, cardiac stents x2, history of left inguinal hernia repair with mesh, abscess removed and left inguinal fistula. FAMILY HISTORY: Father and mother noncontributory. HABITS: No smoking, no drugs, and no ethanol. ALLERGIES: THE PATIENT IS NOT ALLERGIC WITH ANY MEDICATION. HOME MEDICATIONS: Reviewed by me. REVIEW OF SYSTEMS: The patient was seen and examined on the bedside today, looking comfortable. No nausea, vomiting, or diarrhea. No hematuria, or hematochezia. No more bleeding in the stool. No abdominal pain. Tolerated food very well and went for upper endoscopy. Tolerated the procedure very well. PHYSICAL EXAMINATION: VITAL SIGNS: Temperature is 98.3, pulse 67, blood pressure 117/80, respiratory rate 19. HEENT: Head normocephalic and atraumatic. Eyes; PERRLA. Extraocular muscles are intact. Conjunctivae clear. Nose is patent. Mucous membrane is moist. NECK: Supple. No carotid bruit. No JVD or thyromegaly. CHEST: Bilaterally symmetrical. HEART: S1 and S2 positive. LUNGS: Clear to auscultation. ABDOMEN: Soft. Bowel sounds positive. No organomegaly. EXTREMITIES: No edema. No cyanosis. NEUROLOGIC: The patient is awake and alert. Moving all 4 extremities. No focal deficit. LABORATORY DATA: White blood cell is 5.9, hemoglobin 11.6, hematocrit 34.6, and platelets 227. Sodium 142, potassium 3.7, BUN 7, creatinine 0.9, and glucose 100. Hemoglobin A1c is 5.6. ASSESSMENT AND PLAN: Mr. Gabriela Page is a 81-year-old male with multiple medical problems, came with gastrointestinal bleeding, history partial hemicolectomy with anastomosis, history of hiatal hernia and gastric ulcers disease, esophagitis, basal atelectasis on x-rays, sleep apnea syndrome, mild bronchitis, Dr. Farrar gave bronchodilators, sequential compression devices to lower extremities. The patient went for upper endoscopy. As per Dr. Osorio, there is a mild gastritis. No bleeding point, may be diverticuli or lower part of the colon. PLAN: Now plan is to continue monitoring H and H, if H and H will stay stable and the patient will not have pain then we can follow up [employer]rib[employer] Professor later on, but H and H will drop then the patient need immediate outpatient colonoscopy. Education done and I gave him my business card for followup appointment. Hannah Ramirez MD MTDD
== END 2017-03-27 14:18 | disposition home or self-care (01) | DRG 378 ==
LOC: ED 09:44 → ERH 12:44 → 3RSO 13:39 → OBSVTOIN 03-26 22:38
PROVIDERS: ADMIT Internal Medicine; ATTEND Internal Medicine
PROC: 0DB58ZX Excision of Esophagus, Via Natural or Artificial Opening Endoscopic, Diagnostic (ICD-10-PCS; principal; 2017-03-27 09:45)
DX: K92.1 Melena (principal); J98.11 Atelectasis; E11.9 Type 2 diabetes mellitus without complications; G40.909 Epilepsy, unspecified, not intractable, without status epilepticus; I10 Essential (primary) hypertension; K22.70 Barrett's esophagus without dysplasia; K59.00 Constipation, unspecified; K52.9 Noninfective gastroenteritis and colitis, unspecified; I25.10 Atherosclerotic heart disease of native coronary artery without angina pectoris; G47.33 Obstructive sleep apnea (adult) (pediatric); E03.9 Hypothyroidism, unspecified; K20.9 Esophagitis, unspecified; K57.90 Diverticulosis of intestine, part unspecified, without perforation or abscess without bleeding; Z95.5 Presence of coronary angioplasty implant and graft; Z87.891 Personal history of nicotine dependence; Z87.11 Personal history of peptic ulcer disease; Z91.19 Patient's noncompliance with other medical treatment and regimen

== ENCOUNTER 2017-07-28 12:54 | Inpatient (IN) | payer MEDICARE, MEDICAID ==
[2017-07-28 13:56] VITALS: BMI 18.3
--- NOTE | 2017-07-28 14:35 | ED PDOC ---
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 Pt and family at bedside to provide history states that since Friday patient was having abdominal pain, nausea, and vomiting. Due to this PO intake had been poor. Today, patient reports that he felt dizzy and fell 3 times, admitting that he he hit his head once. Pt denies any LOC or prior history. Pt family states that found him lying on floor after having to knock door down to get to him. Pt states he has diffuse body aches and abdominal pain/distension. Pt denied CP, SOB, fever, chills, or MERCER. Past Medical History - Infectious Disease Hx of Infectious Diseases: None - Tetanus Immunization Tetanus Immunization: Unknown - Cardiac Hx Hypertension: Yes - Pulmonary Hx Respiratory Disorders: No - Neurological Hx Neurological Disorder: No - HEENT Hx Cataracts: Yes (b/l sx) - Renal Hx Kidney Stones: No - Endocrine/Metabolic Hx Diabetes Mellitus Type 2: Yes Hx Hypothyroidism: Yes - Hematological/Oncological Hx Blood Transfusions: No - Integumentary Other/Comment: ble skin discoloration, llq abd ddressings x2 dry and intact over i&d site - Musculoskeletal/Rheumatological Hx Falls: No - Gastrointestinal Hx Gastrointestinal Disorders: Yes (hiatal hernia, gi bleed) - Genitourinary/Gynecological Hx Reproductive Disorders: No - Psychiatric Hx Psychophysiologic Disorder: No Hx Substance Use: No - Surgical History Hx Coronary Stent: Yes (x2) Other/Comment: left inguinal hernia sx with mesh, abcess removed and I&d 11/18/16 infected mesh removed, Left inguinal fistula - Anesthesia Hx Anesthesia Reactions: No Hx Malignant Hyperthermia: No - Suicidal Assessment Feels Threatened In Home Enviroment: No Family/Social History Family/Social History: Unknown Family HX Smoking Status: Never Smoked Hx Alcohol Use: No Hx Substance Use: No Hx Substance Use Treatment: No Allergies/Home Meds Allergies/Adverse Reactions: Allergies No Known Allergies Allergy (Verified 03/25/17 14:12) Home Medications: Home Meds Medication Instructions Recorded Confirmed Lisinopril [Zestril] 10 mg PO DAILY 12/18/15 03/25/17 Meloxicam [Mobic] 7.5 mg PO DAILY 11/30/16 03/25/17 Multivit,Iron,Min 5/Folic Acid 1 each PO DAILY 11/30/16 03/25/17 [Strovite Forte Caplet] Sticp-5-Crxk Ethyl Esters [OMEGA 3] 500 mg PO BID 11/30/16 03/25/17 Ranitidine HCl [Acid Manager Of Engineering] 150 mg PO DAILY 11/30/16 03/25/17 amLODIPine [Norvasc] 5 mg PO DAILY 11/30/16 03/25/17 Albuterol/Ipratropium [Duoneb 3 1 inh NEB Q6H 12/24/16 03/25/17 mg/0.5 mg (3 ml) UD] Atorvastatin [Lipitor] 20 mg PO DAILY 12/24/16 03/25/17 traMADol [Ultram] 50 mg PO Q6H PRN 12/24/16 03/25/17 Lactulose [Enulose] 0 gm PO DAILY 03/25/17 03/25/17 Review of Systems - Review of Systems Constitutional: Normal Eyes: Normal ENT: Normal Respiratory: Normal Cardiovascular: Normal Gastrointestinal: Abdominal Pain, Other (distension) Genitourinary Male: Normal Musculoskeletal: Normal Skin: Normal Neurological: Normal Endocrine: Normal Hemo/Lymphatic: Normal Psychiatric: Normal Physical Exam Vital Signs Temp Pulse Resp BP Pulse Ox 07/28/17 19:40 94 H 18 109/54 L 98 07/28/17 17:55 99 H 18 100/58 L 95 07/28/17 16:51 115 H 18 95/54 L 95 07/28/17 16:02 98.6 F 112 H 18 98/50 L 99 07/28/17 13:52 97.5 F L 100 H 19 100/60 99 - Systems Exam Head: Present: Atraumatic, Normocephalic Mouth: Present: Dry Neck: Present: Normal Range of Motion. No: Meningeal Signs, Paraspinal Tenderness Respiratory/Chest: Present: Clear to Auscultation. No: Accessory Muscle Use, Wheezes, Rales, Rhonchi Cardiovascular: Present: Irregular Rhythm Abdomen: Present: Tenderness, Distention. No: Peritoneal Signs, Rebound, Guarding Upper Extremity: Present: Normal Inspection Lower Extremity: Present: Normal Inspection Neurological: Present: GCS=15 Skin: Present: Warm, Dry, Normal Color. No: Rashes Psychiatric: Present: Alert, Oriented x 3 Medical Decision Making ED Course and Treatment: 07/28/17 15:06 Assessment: 81 yo M presents to Emergency department due dizziness, n/v, abdominal pain, fall and with trauma to posterior head. Plan: - CBC - CMP, mg - Trop - EKG - Head CT - LR - Vanc/zosyn - VBG shock panel - Lipase - Lab Interpretations Lab Results: 07/28/17 15:20 07/28/17 15:20 Lab Results 07/28/17 15:20: Procalcitonin 1.66 H 07/28/17 15:20: pO2 45, VBG pH 7.35, VBG pCO2 40.0, VBG HCO3 22.1, VBG Total CO2 23.3, VBG O2 Sat (Calc) 81.2 H, VBG Base Excess -3.3 L, VBG Potassium 5.4 H , Sodium 130.0 L, Chloride 101.0, Glucose 115 H, Lactate 4.2 H*, FiO2 21.0, Venous Blood Potassium 5.4 H 07/28/17 15:20: Sodium 134, Chloride 98, Potassium 5.2 H, Carbon Dioxide 20 L, Anion Gap 21 H, BUN 98 H, Creatinine 2.4 H, Est GFR ( Amer) 32, Est GFR ( Non-Af Amer) 26, Random Glucose 101, Calcium 9.0, Magnesium 2.8 H, Total Bilirubin 0.5, AST 32, ALT 28, Alkaline Phosphatase 33 L D, Lactate Dehydrogenase 361, Total Creatine Kinase 434 H, CK-MB (CK-2) 6.2 H, CK-MB (CK-2 ) % 1.4 L, Troponin I < 0.01, Total Protein 6.0, Albumin 3.3, Globulin 2.7, Albumin/Globulin Ratio 1.2, Lipase 53 07/28/17 15:20: PT 11.5, INR 1.01, APTT 22.2 L 07/28/17 15:20: WBC 4.9, RBC 2.37 L, Hgb 7.5 L D, Hct 22.2 L, MCV 93.7, MCH 31.6 , MCHC 33.8, RDW 14.1, Plt Count 189, MPV 10.1, Gran % 77.2 H, Lymph % (Auto) 9.6 L, [place] % (Auto) 13.2 H, Eos % (Auto) 0.0 L, Baso % (Auto) 0.0, Gran # 3.79 , Lymph # (Auto) 0.5 L, [place] # (Auto) 0.7 H, Eos # (Auto) 0.0, Baso # (Auto) 0.00 - RAD Interpretation Radiology Orders: 07/28/17 14:32 CHEST PORTABLE [RAD] Stat 07/28/17 14:39 HEAD W/O CONTRAST [CT] Stat 07/28/17 16:07 ABD & PELVIS W/O PO OR IV CONT [CT] Stat - Medication Orders Current Medication Orders: Amlodipine Besylate (Norvasc) 5 mg PO DAILY [facility] Last Admin: 07/29/17 11:28 Dose: 5 mg MAR Pulse and Blood Pressure Document 07/29/17 11:28 RAMOM (Rec: 07/29/17 11:29 RAMOM [id number]) Pulse Pulse Rate (60-90) 81 Blood Pressure Blood Pressure (100/60-150/90) 113/46 Atorvastatin Calcium (Lipitor) 20 mg PO DAILY [facility] Last Admin: 07/29/17 11:35 Dose: 20 mg Clonidine HCl (Catapres Tts1 0.1 Mg/24 Hr) 1 patch TD FRI ZACK Ergocalciferol (Drisdol 50,000 Intl Units Cap) 1 cap PO Fr@1000 ZACK Famotidine (Pepcid) 20 mg PO HS ZACK Meropenem/Sodium Chloride (Meropenem 1g/Ns 100ml Ivpb) 1 gm in 100 mls @ 100 mls/hr IVPB Q12 [facility] PRN Reason: Protocol Last Admin: 07/29/17 11:27 Dose: 100 mls/hr eMAR Start Stop Document 07/29/17 11:27 RAMOM (Rec: 07/29/17 11:27 RAMOM [id number]) Intravenous Solution Start Date 07/29/17 Start Time 12:25 End Date 07/29/17 End time 13:25 Total Infusion Time 60 Levofloxacin/Dextrose (Levaquin 250mg) 250 mg in 50 mls @ 50 mls/hr IVPB DAILY [facility] PRN Reason: Protocol Stop: 08/07/17 10:01 Last Admin: 07/29/17 11:25 Dose: 50 mls/hr eMAR Start Stop Document 07/29/17 11:25 RAMOM (Rec: 07/29/17 11:26 RAMOM [id number]) Intravenous Solution Start Date 07/29/17 Start Time 11:25 End Date 07/29/17 End time 12:25 Total Infusion Time 60 Sodium Chloride (Sodium Chloride 0.9%) 1,000 mls @ 60 mls/hr IV .[id number] [facility] Last Admin: 07/29/17 11:53 Dose: 60 mls/hr eMAR Start Stop Document 07/29/17 11:53 RAMOM (Rec: 07/29/17 11:53 RAMOM [id number]) Intravenous Solution Start Date 07/29/17 Start Time 11:35 Levothyroxine Sodium (Synthroid) 25 mcg PO 0600 [facility] Last Admin: 07/29/17 09:11 Dose: 25 mcg Lisinopril (Zestril) 10 mg PO DAILY [facility] Non-Formulary Medication (Multivit,Iron,Min 5/Folic Acid [Strovite Forte Caplet] ) 1 each PO DAILY [facility] Last Admin: 07/29/17 11:34 Dose: Non-Formulary Medication (Vykdp-7-Sqfm Ethyl Esters [[place] 3]) 500 mg PO BID [facility] Last Admin: 07/29/17 11:29 Dose: Non-Formulary Medication (Ranitidine Hcl [Acid Manager Of Engineering]) 150 mg PO DAILY [facility] Last Admin: 07/29/17 11:29 Dose: Polyethylene Glycol (Miralax) 17 gm PO BID [facility] Last Admin: 07/29/17 11:27 Dose: 17 gm Tramadol HCl (Ultram) 50 mg PO Q6H PRN PRN Reason: Pain, Mild (1-3) Discontinued Medications Lactated Ringer's (Lactated Ringer's) 1,000 mls @ 999 mls/hr IV .Q1H1M [facility] Last Admin: 07/28/17 16:58 Dose: 999 mls/hr eMAR Start Stop Document 07/28/17 16:58 LA (Rec: 07/28/17 16:59 LA [facility] [id number]) Intravenous Solution Start Date 02/12/18 Start Time 16:58 Vancomycin HCl (Vancomycin 1gm) 1 gm in 250 mls @ 167 mls/hr IVPB Q12H [facility] PRN Reason: Protocol Last Admin: 07/28/17 15:56 Dose: 167 mls/hr eMAR Start Stop Document 07/28/17 15:56 LA (Rec: 07/28/17 15:56 LA [facility] [id number]) Intravenous Solution Start Date 07/28/17 Start Time 15:56 Piperacillin Sod/Tazobactam Sod (Zosyn 3.375 In Ns 100ml) 100 mls @ 200 mls/hr IVPB Q6 [facility] PRN Reason: Protocol Stop: 07/29/17 00:29 Last Admin: 07/28/17 19:48 Dose: 200 mls/hr eMAR Start Stop Document 07/28/17 19:48 CNR (Rec: 07/28/17 19:48 CNR [facility] [id number]) Intravenous Solution Start Date 07/28/17 Start Time 19:48 Lactated Ringer's (Lactated Ringer's) 1,000 mls @ 999 mls/hr IV .Q1H1M [facility] Lactated Ringer's (Lactated Ringer's) 1,000 mls @ 999 mls/hr IV .Q1H1M [facility] Vancomycin HCl (Vancomycin 1gm) 1 gm in 250 mls @ 167 mls/hr IVPB ONCE ONE PRN Reason: Protocol Stop: 07/28/17 23:35 Last Admin: 07/29/17 07:00 Dose: Ondansetron HCl (Zofran Inj) 4 mg IVP STAT STA Stop: 07/28/17 14:33 Last Admin: 07/28/17 15:43 Dose: 4 mg IVP Administration Document 07/28/17 15:43 LA (Rec: 07/28/17 15:43 LA [facility] [id number]) Charges for Administration # of IVP Administrations 1 Disposition/Present on Arrival - Present on Arrival Any Indicators Present on Arrival: No History of DVT/PE: No History of Uncontrolled Diabetes: No Urinary Catheter: No History Surgical Site Infection Following: None - Disposition Have Diagnosis and Disposition been Completed?: Yes Diagnosis: Sepsis, Anemia, Rectal bleeding Disposition: HOSPITALIZED Disposition Time: 13:55 Condition: CRITICAL
[2017-07-28] MEDS ORDERED: Vancomycin 1gm in NS 250ml 1 GM/250 ML BAG IVPB SCH (14:45)
--- NOTE | 2017-07-28 14:51 | PCM.SEPTIC ---
Sepsis Progress Note - Non Invasive Reassessment Vital Sign (Latest): Temp Pulse Resp BP Pulse Ox 97.5 F L 100 H 19 100/60 99 07/28/17 13:52 07/28/17 13:52 07/28/17 13:52 07/28/17 13:52 07/28/17 13:52
--- NOTE | 2017-07-28 15:23 | RAD ---
HISTORY: weakness COMPARISON: 03/25/2017. FINDINGS: LUNGS: The lungs are well inflated. There is airspace in the left lower lobe. PLEURA: No significant pleural effusion identified, no pneumothorax apparent. CARDIOVASCULAR: Normal. OSSEOUS STRUCTURES: No significant abnormalities. VISUALIZED UPPER ABDOMEN: Normal. OTHER FINDINGS: None. IMPRESSION: Left lower lobe airspace disease may represent atelectasis or pneumonia. Follow-up is advised.
[2017-07-28] MEDS ORDERED: Iohexol 350 MG/100 ML VIAL ONE (15:25)
[2017-07-28 15:44] LABS: GRAN # 3.79 (1.4-6.5); GRAN % 77.2 % (50.0-68.0); LYMPH # 0.5 (1.2-3.4); LYMPH % 9.6 % (22.0-35.0); MEAN CELL VOLUME 93.7 fl (80.0-105.0); MEAN CORPUSCULAR HEMOGLOBIN 31.6 pg (25.0-35.0); MEAN CORPUSCULAR HGB CONC 33.8 g/dl (31.0-37.0); MEAN PLATELET VOLUME 10.1 fl (7.0-11.0); MONO # 0.7 (0.1-0.6); MONO % 13.2 % (1.0-6.0); RBC 2.37 10^6/uL (3.5-6.1); RED CELL DISTRIBUTION WIDTH 14.1 % (11.5-14.5); VENOUS BLOOD GAS BASE EXCESS -3.3 mmol/L (0.0-2.0); VENOUS BLOOD GAS PO2 45 mm/Hg (30-55); VENOUS BLOOD PH 7.35 (7.32-7.43); WHITE BLOOD COUNT 4.9 10^3/ul (4.5-11.0)
[2017-07-28] MEDS: Lactated Ringer's 1,000 ML IV SCH ×3 (15:46→16:58)
[2017-07-28 15:57] LABS: HEMOGLOBIN 7.5 g/dL (14.0-18.0)
[2017-07-28 16:04] LABS: ALB/GLOB RATIO 1.2 (1.1-1.8); ALBUMIN 3.3 g/dL (3.0-4.8); ALT/SGPT 28 U/L (7-56); AST/SGOT 32 U/L (17-59); BLOOD UREA NITROGEN 98 mg/dL (7-21); GFR AFRICAN-AMERICAN 32; GFR NON-AFRICAN AMERICAN 26; LIPASE 53 U/L (23-300); MAGNESIUM 2.8 mg/dL (1.7-2.2)
[2017-07-28 16:09] LABS: INR 1.01 (0.93-1.08); PARTIAL THROMBOPLASTIN TIME 22.2 Seconds (25.1-36.5); PROTHROMBIN TIME 11.5 SECONDS (9.4-12.5)
[2017-07-28 16:18] LABS: TROPONIN I < 0.01 ng/mL
[2017-07-28 16:20] LABS: CK MB% 1.4 % (2.5-3.0); CK-MB 6.2 ng/mL (0.0-3.6)
[2017-07-28] MEDS ORDERED: Lactated Ringer's 1,000 ML IV SCH ×2 (16:30→17:00)
--- NOTE | 2017-07-28 17:19 | CP.PCM.CON ---
History of Present Illness - History of Present Illness History of Present Illness: CRITICAL CARE CONSULT NOTE HPI Patient is 81yo male with PMhx of CAD with 2 stents, HTN, HLD, hx of infected mesh s/p abdominal surgery, colon resection, presented to the ER with syncope and fall. As per the family, daughter reports she found the patient down on the floor today. Pt reports he has not eaten anything since Friday, poor po intake, weakness, fatigue and lethargy. Denies fever, chills, chest pain, sob, palpitations, MERCER, dizziness. Pt endorses abdominal pain and distention with nausea and vomiting. No other constitutional symptoms. In the ER found to be hypotensive, SBP 70-90, given 2L LR bolus, with improvement in BP, Lactate 4.2. PMHx as above PSHx as above Allergies NKDA Meds as per EMR ROS as above FHx NC Review of Systems - Review of Systems Review of Systems: as per HPI Past Patient History - Infectious Disease Hx of Infectious Diseases: None - Tetanus Immunizations Tetanus Immunization: Unknown - Past Social History Smoking Status: Never Smoked - CARDIAC Hx Hypertension: Yes - PULMONARY Hx Respiratory Disorders: No - NEUROLOGICAL Hx Neurological Disorder: No - HEENT Hx Cataracts: Yes (b/l sx) - RENAL Hx Kidney Stones: No - ENDOCRINE/METABOLIC Hx Diabetes Mellitus Type 2: Yes Hx Hypothyroidism: Yes - HEMATOLOGICAL/ONCOLOGICAL Hx Blood Transfusions: No - INTEGUMENTARY Other/Comment: ble skin discoloration, llq abd ddressings x2 dry and intact over i&d site - MUSCULOSKELETAL/RHEUMATOLOGICAL Hx Falls: No - GASTROINTESTINAL Hx Gastrointestinal Disorders: Yes (hiatal hernia, gi bleed) - GENITOURINARY/GYNECOLOGICAL Hx Reproductive Disorders: No - PSYCHIATRIC Hx Psychophysiologic Disorder: No Hx Substance Use: No - SURGICAL HISTORY Hx Coronary Stent: Yes (x2) Other/Comment: left inguinal hernia sx with mesh, abcess removed and I&d 11/18/16 infected mesh removed, Left inguinal fistula - ANESTHESIA Hx Anesthesia Reactions: No Hx Malignant Hyperthermia: No Meds Allergies/Adverse Reactions: Allergies Allergy/AdvReac Type Severity Reaction Status Date / Time No Known Allergies Allergy Verified 03/25/17 14:12 - Medications Medications: Current Medications Lactated Ringer's (Lactated Ringer's) 1,000 mls @ 999 mls/hr IV .Q1H1M [facility] Last Admin: 07/28/17 16:58 Dose: 999 mls/hr Vancomycin HCl (Vancomycin 1gm) 1 gm in 250 mls @ 167 mls/hr IVPB Q12H [facility] PRN Reason: Protocol Last Admin: 07/28/17 15:56 Dose: 167 mls/hr Piperacillin Sod/Tazobactam Sod (Zosyn 3.375 In Ns 100ml) 100 mls @ 200 mls/hr IVPB Q6 [facility] PRN Reason: Protocol Stop: 07/29/17 00:29 Lactated Ringer's (Lactated Ringer's) 1,000 mls @ 999 mls/hr IV .Q1H1M [facility]ACK Lactated Ringer's (Lactated Ringer's) 1,000 mls @ 999 mls/hr IV .Q1H1M [facility] Physical Exam - Constitutional Appears: Non-toxic, No Acute Distress, Cachectic, Chronically Ill - Eye Exam Eye Exam: Normal appearance - ENT Exam ENT Exam: Mucous Membranes Dry - Respiratory Exam Respiratory Exam: Clear to Auscultation Bilateral, NORMAL BREATHING PATTERN - Cardiovascular Exam Cardiovascular Exam: Tachycardia, Irregular Rhythm, +S1, +S2 - GI/Abdominal Exam GI & Abdominal Exam: Distended, Normal Bowel Sounds, Soft - Extremities Exam Extremities exam: Positive for: normal inspection - Neurological Exam Neurological exam: Alert, Oriented x3 Results - Vital Signs Recent Vital Signs: Last Vital Signs Temp 98.6 F 07/28/17 16:02 Pulse 115 H 07/28/17 16:51 Resp 18 07/28/17 16:51 BP 95/54 L 07/28/17 16:51 Pulse Ox 95 07/28/17 16:51 - Labs Result Diagrams: 07/28/17 15:20 07/28/17 15:20 Labs: Laboratory Results - last 24 hr 07/28/17 07/28/17 07/28/17 15:20 15:20 15:20 WBC 4.9 RBC 2.37 L Hgb 7.5 L D Hct 22.2 L MCV 93.7 MCH 31.6 MCHC 33.8 RDW 14.1 Plt Count 189 MPV 10.1 Gran % 77.2 H Lymph % (Auto) 9.6 L [place] % (Auto) 13.2 H Eos % (Auto) 0.0 L Baso % (Auto) 0.0 Gran # 3.79 Lymph # (Auto) 0.5 L [place] # (Auto) 0.7 H Eos # (Auto) 0.0 Baso # (Auto) 0.00 PT 11.5 INR 1.01 APTT 22.2 L pO2 VBG pH VBG pCO2 VBG HCO3 VBG Total CO2 VBG O2 Sat (Calc) VBG Base Excess VBG Potassium Sodium 134 Chloride 98 Glucose Lactate FiO2 Potassium 5.2 H Carbon Dioxide 20 L Anion Gap 21 H BUN 98 H Creatinine 2.4 H Est GFR ( Amer) 32 Est GFR (Non-Af Amer) 26 Random Glucose 101 Calcium 9.0 Magnesium 2.8 H Total Bilirubin 0.5 AST 32 ALT 28 Alkaline Phosphatase 33 L D Lactate Dehydrogenase 361 Total Creatine Kinase 434 H CK-MB (CK-2) 6.2 H CK-MB (CK-2) % 1.4 L Troponin I < 0.01 Total Protein 6.0 Albumin 3.3 Globulin 2.7 Albumin/Globulin Ratio 1.2 Lipase 53 Venous Blood Potassium 07/28/17 15:20 WBC RBC Hgb Hct MCV MCH MCHC RDW Plt Count MPV Gran % Lymph % (Auto) [place] % (Auto) Eos % (Auto) Baso % (Auto) Gran # Lymph # (Auto) [place] # (Auto) Eos # (Auto) Baso # (Auto) PT INR APTT pO2 45 VBG pH 7.35 VBG pCO2 40.0 VBG HCO3 22.1 VBG Total CO2 23.3 VBG O2 Sat (Calc) 81.2 H VBG Base Excess -3.3 L VBG Potassium 5.4 H Sodium 130.0 L Chloride 101.0 Glucose 115 H Lactate 4.2 H* FiO2 21.0 Potassium Carbon Dioxide Anion Gap BUN Creatinine Est GFR ( Amer) Est GFR (Non-Af Amer) Random Glucose Calcium Magnesium Total Bilirubin AST ALT Alkaline Phosphatase Lactate Dehydrogenase Total Creatine Kinase CK-MB (CK-2) CK-MB (CK-2) % Troponin I Total Protein Albumin Globulin Albumin/Globulin Ratio Lipase Venous Blood Potassium 5.4 H - Imaging and Cardiology Chest x-ray Status: Image reviewed by me, Report reviewed by me Assessment & Plan - Assessment and Plan (Free Text) Assessment: 81yo male a/w anemia, severe sepsis, lactic acidosis, weakness Weakness Fatigue Syncope Anemia Severe Sepsis Lactic Acidosis Abdominal Distention/Pain CAD s/p stents Dehydration Acute renal failure - currently afebrile, HD stable, SBP ranging 95-105, HR 120s, Afib - on exam, AAOx3, NAD, cachectic, MM dry - labs with anemia, lactic acidosis, acute renal failure - CT A/P without contrast, CT head without contrast pending Recommend: - supp o2 as needed - wilson culture, BCx, Ucx, check Procal, UA - broad spectrum antibiotics, Vanco, Cefepime, - rule out FLU - IVF hydration - bolus 2L LR - repeat lactate - hold BP meds - renal sonogram - Ulytes - renal consult - ECHO - FS control - CT A/P without contrast, CT head without contrast - transfuse 1u pRBC, repeat CBC - GI eval - GI ppx, PPI - DVT ppx, SCDs - Admit, patient critical critical care time 45 minutes
[2017-07-28] MEDS ORDERED: Piperacillin/Tazobact 3.375 gm 100 ML IVPB SCH (18:00)
--- NOTE | 2017-07-28 18:49 | CT ---
PROCEDURE: CT HEAD WITHOUT CONTRAST. HISTORY: fall COMPARISON: 12/23/2016. TECHNIQUE: Axial computed tomography images were obtained through the head/brain without intravenous contrast. Radiation dose: Total exam DLP = 976.85 mGy-cm. This CT exam was performed using one or more of the following dose reduction techniques: Automated exposure control, adjustment of the mA and/or kV according to patient size, and/or use of iterative reconstruction technique. FINDINGS: HEMORRHAGE: No intracranial hemorrhage. BRAIN: No mass effect or edema. Cortical atrophy, periventricular small vessel disease stable left basal ganglia infarcts. VENTRICLES: Unremarkable. No hydrocephalus. CALVARIUM: Unremarkable. PARANASAL SINUSES: Unremarkable as visualized. No significant inflammatory changes. MASTOID AIR CELLS: Unremarkable as visualized. No inflammatory changes. OTHER FINDINGS: None. IMPRESSION: No acute intracranial abnormalities. No significant findings to account for the clinical presentation. No significant interval change compared to the prior examination(s).
--- NOTE | 2017-07-28 18:55 | CT ---
PROCEDURE: CT Abdomen and Pelvis without intravenous contrast HISTORY: abd distention COMPARISON: 03/26/2017 TECHNIQUE: Unenhanced study. Neither oral nor intravenous contrast administered. Radiation dose: Total exam DLP = 366.66 mGy-cm. This CT exam was performed using one or more of the following dose reduction techniques: Automated exposure control, adjustment of the mA and/or kV according to patient size, and/or use of iterative reconstruction technique. FINDINGS: LOWER THORAX: Atelectasis at the lung bases. LIVER: Unremarkable. No gross lesion or ductal dilatation. GALLBLADDER AND BILE DUCTS: Unremarkable. PANCREAS: Unremarkable. No gross lesion or ductal dilatation. SPLEEN: Unremarkable. ADRENALS: Unremarkable. No mass. KIDNEYS AND URETERS: Unremarkable. No hydronephrosis. No solid mass. VASCULATURE: Unremarkable. No aortic aneurysm. BOWEL: Fecal impaction, constipation with marked distention of the sigmoid and descending colon. Surgical suture line at the junction of descending colon and sigmoid Dilatation of small bowel with multiple air-fluid levels the point of narrowing is in the right lower quadrant, as distal ileum is of normal luminal caliber. APPENDIX: Unremarkable. Normal appendix. PERITONEUM: Unremarkable. No free fluid. No free air. LYMPH NODES: Unremarkable. No enlarged lymph nodes. BLADDER: Unremarkable. REPRODUCTIVE: Unremarkable. BONES: No acute fracture. OTHER FINDINGS: None. IMPRESSION: Postoperative changes associated with distension of the distal descending colon. At the site and beyond there are areas of fecal impaction. Early/incomplete small bowel obstruction anatomically distal small bowel, point out of luminal narrowing and decompressed distal small bowel right lower quadrant.
--- NOTE | 2017-07-28 21:44 | PCM.SEPTIC ---
Sepsis Progress Note - Reassessment Type Date of Evaluation: 07/28/17 Time of Evaluation: 21:44 Reassessment Type: Non-invasive reassessment - Non Invasive Reassessment Were the most recent vital sign reviewed: Yes Vital Sign (Latest): Temp Pulse Resp BP Pulse Ox 98.6 F 94 H 18 109/54 L 98 07/28/17 16:02 07/28/17 19:40 07/28/17 19:40 07/28/17 19:40 07/28/17 19:40 Cardiovascular: Yes: Regular Rate, Rhythm, Chest Non Tender. No: Bradycardia, Tachycardia, Friction Rub, Irregularly Irregular Respiratory: Yes: Normal Breath Sounds. No: Accessory Muscle Use, Crackles, Rales, Rhonchi, Stridor, Wheezing, Respiratory Distress, Plerual Rub Capillary Refill: Normal (Less than 2 sec) Pulses: Normal Radial, Normal Dorsalis Pedis, Normal Posterior Tibialis Skin: Normal Color, Warm
[2017-07-28 21:50] LABS: VENOUS BLOOD GAS BASE EXCESS -1.8 mmol/L (0.0-2.0); VENOUS BLOOD GAS PO2 38 mm/Hg (30-55); VENOUS BLOOD PH 7.38 (7.32-7.43)
[2017-07-28] MEDS ORDERED: Vancomycin 1gm in NS 250ml 1 GM/250 ML BAG IVPB ONE (22:06)
[2017-07-29 01:22] LABS: URINE BILIRUBIN NEGATIVE (NEGATIVE); URINE BLOOD LARGE (NEGATIVE); URINE GLUCOSE (UA) NEGATIVE (NEGATIVE); URINE LEUKOCYTE ESTERASE NEGATIVE Leu/uL (NEGATIVE); URINE NITRATE NEGATIVE (NEGATIVE); URINE PROTEIN TRACE mg/dL (<30 mg/dL); URINE UROBILINOGEN 0.2 E.U./dL (<1 E.U./dL)
[2017-07-29 01:46] LABS: URINE APPEARANCE SL CLOUDY (CLEAR); URINE COLOR YELLOW (YELLOW)
[2017-07-29 01:49] LABS: URINE EPITHELIAL CELLS 0 - 2 /hpf (0-5); URINE WBC 0 - 2 /hpf (0-6)
[2017-07-29 01:50] LABS: URINE BACTERIA FEW (NEG)
[2017-07-29] MEDS: Meropenem 1g/NS 100mL IVPB 1 GM/100 ML PIGGYBACK IVPB SCH ×3 (02:45→21:36)
[2017-07-29 07:38] LABS: BASO # 0.01 K/mm3 (0.0-2.0); BASO % 0.2 % (0.0-3.0); EOS # 0.2 (0.0-0.7); EOS % 3.5 % (1.5-5.0); GRAN # 3.32 (1.4-6.5); GRAN % 61.2 % (50.0-68.0); HEMOGLOBIN 9.8 g/dL (14.0-18.0); LYMPH # 1.3 (1.2-3.4); MEAN CORPUSCULAR HEMOGLOBIN 31.3 pg (25.0-35.0); MEAN CORPUSCULAR HGB CONC 33.7 g/dl (31.0-37.0); MEAN PLATELET VOLUME 10.2 fl (7.0-11.0); MONO # 0.6 (0.1-0.6); MONO % 11.1 % (1.0-6.0); RBC 3.13 10^6/uL (3.5-6.1); RED CELL DISTRIBUTION WIDTH 14.8 % (11.5-14.5); WHITE BLOOD COUNT 5.4 10^3/ul (4.5-11.0)
--- NOTE | 2017-07-29 08:31 | CP.CCUPN ---
<MadelinGeorgina - Last Filed: 07/29/17 09:35> CCU Subjective - Physician Review Subjective (Free Text): 07/29/17 08:28 Patient was admitted to ICU last night due to severe sepsis. Patient responded well with fluid hydration, his SBP has been above 100 all night. Patient is afebrile, alert and able to speak in full sentences. Patient states the body aches improved. Denies nausea, vomiting or diarrhea. Denies abdominal pain. Critical Care Time Spent (in minutes): 45 CCU Objective - Vital Signs / Intake & Output Intake and Output (Last 8hrs): Intake & Output 07/28/17 07/29/17 07/29/17 22:59 06:59 14:59 Intake Total 450 Balance 450 Intake: Blood Product 325 Red Blood Cells Cpd As1 325 Lr Unit [id number] Other 125 Red Blood Cells Cpd As1 125 Lr Unit [id number] - Physical Exam Head: Positive for: Atraumatic, Normocephalic Mouth: Positive for: Moist Mucous Membranes Neck: Positive for: Normal Range of Motion. Negative for: Meningeal Signs, Paraspinal Tenderness Respiratory/Chest: Positive for: Clear to Auscultation. Negative for: Accessory Muscle Use, Wheezes, Rales, Rhonchi Cardiovascular: Positive for: Irregular Rhythm Abdomen: Positive for: Tenderness, Distention. Negative for: Peritoneal Signs, Rebound, Guarding Upper Extremity: Positive for: Normal Inspection Lower Extremity: Positive for: Normal Inspection Neurological: Positive for: GCS=15 Skin: Positive for: Warm, Dry, Normal Color. Negative for: Rashes Psychiatric: Positive for: Alert, Oriented x 3 - Medications Active Medications: Active Medications Generic Name Dose Route Start Last Admin Trade Name Freq PRN Reason Stop Dose Admin Amlodipine Besylate 5 mg 07/29/17 10:00 Norvasc PO DAILY ZACK Atorvastatin Calcium 20 mg 07/29/17 10:00 Lipitor PO DAILY ZACK Clonidine HCl 1 patch 08/01/17 10:00 Catapres Tts1 0.1 Mg/24 Hr TD FRI ZACK Ergocalciferol 1 cap 08/01/17 10:00 Drisdol 50,000 Intl Units Cap PO Fr@1000 ZACK Famotidine 20 mg 07/28/17 22:00 Pepcid PO HS ZACK Lactated Ringer's 1,000 mls @ 999 mls/hr 07/28/17 14:45 07/28/17 16:58 Lactated Ringer's IV 999 mls/hr .Q1H1M ZACK Administration Lactated Ringer's 1,000 mls @ 999 mls/hr 07/28/17 17:00 Lactated Ringer's IV .Q1H1M ZACK Meropenem/Sodium Chloride 1 gm in 100 mls @ 100 mls/hr 07/28/17 22:15 02:45 Meropenem 1g/Ns 100ml Ivpb IVPB 100 mls/hr Q12 ZACK Administration Protocol Levofloxacin/Dextrose 250 mg in 50 mls @ 50 mls/hr 07/29/17 10:00 Levaquin 250mg IVPB 08/07/17 10:01 DAILY ZACK Protocol Levothyroxine Sodium 25 mcg 07/29/17 06:00 Synthroid PO 0600 ZACK Lisinopril 10 mg 07/29/17 10:00 Zestril PO DAILY ZACK Non-Formulary Medication 1 each 07/29/17 10:00 Multivit,Iron,Min 5/Folic Acid [Strovite Forte Caplet] PO DAILY ZACK Non-Formulary Medication 500 mg 07/29/17 10:00 Apyck-[id number] Ethyl Esters [Delta 3] PO BID ZACK Non-Formulary Medication 150 mg 07/29/17 10:00 Ranitidine Hcl [Acid Machine Straw Hat Presser] PO DAILY ZACK Polyethylene Glycol 17 gm 07/29/17 10:00 Miralax PO BID ZACK Tramadol HCl 50 mg 07/28/17 20:18 Ultram PO Q6H PRN Pain, Mild (1-3) - Patient Studies Lab Studies: Lab Studies 07/29/17 07/29/17 07/28/17 Range/Units 07:00 01:05 21:35 WBC 5.4 (4.5-11.0) 10^3/ul RBC 3.13 L (3.5-6.1) 10^6/uL Hgb 9.8 L D (14.0-18.0) g/dL Hct 29.1 L (42.0-52.0) % MCV 93.0 (80.0-105.0) fl MCH 31.3 (25.0-35.0) pg MCHC 33.7 (31.0-37.0) g/dl RDW 14.8 H (11.5-14.5) % Plt Count 182 (120.0-450.0) 10^3/uL MPV 10.2 (7.0-11.0) fl Gran % 61.2 (50.0-68.0) % Lymph % (Auto) 24.0 (22.0-35.0) % Anderson % (Auto) 11.1 H (1.0-6.0) % Eos % (Auto) 3.5 (1.5-5.0) % Baso % (Auto) 0.2 (0.0-3.0) % Gran # 3.32 (1.4-6.5) Lymph # (Auto) 1.3 (1.2-3.4) Anderson # (Auto) 0.6 (0.1-0.6) Eos # (Auto) 0.2 (0.0-0.7) Baso # (Auto) 0.01 (0.0-2.0) K/mm3 pO2 38 (30-55) mm/Hg VBG pH 7.38 (7.32-7.43) VBG pCO2 39.0 L (40-60) VBG HCO3 23.1 (21-28) mmol/l VBG Total CO2 24.3 (22-28) mmol.L VBG O2 Sat (Calc) 75.1 H (40-65) % VBG Base Excess -1.8 L (0.0-2.0) mmol/L VBG Potassium 4.5 (3.6-5.2) mmol/L Sodium 134.0 (132-148) mmol/L Chloride 103.0 (98-107) mmol/L Glucose 109 (75-110) mg/dl Lactate 1.7 (0.7-2.1) mmol/L FiO2 21.0 % Venous Blood Potassium 4.5 (3.6-5.2) mmol/L Urine Color Yellow (YELLOW) Urine Appearance Sl cloudy (CLEAR) Urine pH 6.0 (4.7-8.0) Ur Specific Lester 1.010 (1.005-1.035) Urine Protein Trace H (<30 mg/dL) mg/dL Urine Glucose (UA) Negative (NEGATIVE) mg/dL Urine Ketones Negative (NEGATIVE) mg/dL Urine Blood Large H (NEGATIVE) Urine Nitrate Negative (NEGATIVE) Urine Bilirubin Negative (NEGATIVE) Urine Urobilinogen 0.2 (<1 E.U./dL) E.U./dL Ur Leukocyte Esterase Negative (NEGATIVE) Farrukh/uL Urine RBC 1 - 3 (0-2) /hpf Urine WBC 0 - 2 (0-6) /hpf Ur Epithelial Cells 0 - 2 (0-5) /hpf Urine Bacteria Few (NEG) Blood Type Antibody Screen Crossmatch BBK History Checked 07/28/17 Range/Units 17:40 WBC (4.5-11.0) 10^3/ul RBC (3.5-6.1) 10^6/uL Hgb (14.0-18.0) g/dL Hct (42.0-52.0) % MCV (80.0-105.0) fl MCH (25.0-35.0) pg MCHC (31.0-37.0) g/dl RDW (11.5-14.5) % Plt Count (120.0-450.0) 10^3/uL MPV (7.0-11.0) fl Gran % (50.0-68.0) % Lymph % (Auto) (22.0-35.0) % Anderson % (Auto) (1.0-6.0) % Eos % (Auto) (1.5-5.0) % Baso % (Auto) (0.0-3.0) % Gran # (1.4-6.5) Lymph # (Auto) (1.2-3.4) Anderson # (Auto) (0.1-0.6) Eos # (Auto) (0.0-0.7) Baso # (Auto) (0.0-2.0) K/mm3 pO2 (30-55) mm/Hg VBG pH (7.32-7.43) VBG pCO2 (40-60) VBG HCO3 (21-28) mmol/l VBG Total CO2 (22-28) mmol.L VBG O2 Sat (Calc) (40-65) % VBG Base Excess (0.0-2.0) mmol/L VBG Potassium (3.6-5.2) mmol/L Sodium (132-148) mmol/L Chloride (98-107) mmol/L Glucose (75-110) mg/dl Lactate (0.7-2.1) mmol/L FiO2 % Venous Blood Potassium (3.6-5.2) mmol/L Urine Color (YELLOW) Urine Appearance (CLEAR) Urine pH (4.7-8.0) Ur Specific Lester (1.005-1.035) Urine Protein (<30 mg/dL) mg/dL Urine Glucose (UA) (NEGATIVE) mg/dL Urine Ketones (NEGATIVE) mg/dL Urine Blood (NEGATIVE) Urine Nitrate (NEGATIVE) Urine Bilirubin (NEGATIVE) Urine Urobilinogen (<1 E.U./dL) E.U./dL Ur Leukocyte Esterase (NEGATIVE) Farrukh/uL Urine RBC (0-2) /hpf Urine WBC (0-6) /hpf Ur Epithelial Cells (0-5) /hpf Urine Bacteria (NEG) Blood Type A POSITIVE Antibody Screen Negative Crossmatch See Detail BBK History Checked Patient has bt Laboratory Results - last 24 hr 07/28/17 07/28/17 07/29/17 17:40 21:35 01:05 WBC RBC Hgb Hct MCV MCH MCHC RDW Plt Count MPV Gran % Lymph % (Auto) Anderson % (Auto) Eos % (Auto) Baso % (Auto) Gran # Lymph # (Auto) Anderson # (Auto) Eos # (Auto) Baso # (Auto) pO2 38 VBG pH 7.38 VBG pCO2 39.0 L VBG HCO3 23.1 VBG Total CO2 24.3 VBG O2 Sat (Calc) 75.1 H VBG Base Excess -1.8 L VBG Potassium 4.5 Sodium 134.0 Chloride 103.0 Glucose 109 Lactate 1.7 FiO2 21.0 Venous Blood Potassium 4.5 Urine Color Yellow Urine Appearance Sl cloudy Urine pH 6.0 Ur Specific Lester 1.010 Urine Protein Trace H Urine Glucose (UA) Negative Urine Ketones Negative Urine Blood Large H Urine Nitrate Negative Urine Bilirubin Negative Urine Urobilinogen 0.2 Ur Leukocyte Esterase Negative Urine RBC 1 - 3 Urine WBC 0 - 2 Ur Epithelial Cells 0 - 2 Urine Bacteria Few Blood Type A POSITIVE Antibody Screen Negative Crossmatch See Detail BBK History Checked Patient has bt 07/29/17 07:00 WBC 5.4 RBC 3.13 L Hgb 9.8 L D Hct 29.1 L MCV 93.0 MCH 31.3 MCHC 33.7 RDW 14.8 H Plt Count 182 MPV 10.2 Gran % 61.2 Lymph % (Auto) 24.0 Anderson % (Auto) 11.1 H Eos % (Auto) 3.5 Baso % (Auto) 0.2 Gran # 3.32 Lymph # (Auto) 1.3 Anderson # (Auto) 0.6 Eos # (Auto) 0.2 Baso # (Auto) 0.01 pO2 VBG pH VBG pCO2 VBG HCO3 VBG Total CO2 VBG O2 Sat (Calc) VBG Base Excess VBG Potassium Sodium Chloride Glucose Lactate FiO2 Venous Blood Potassium Urine Color Urine Appearance Urine pH Ur Specific Lester Urine Protein Urine Glucose (UA) Urine Ketones Urine Blood Urine Nitrate Urine Bilirubin Urine Urobilinogen Ur Leukocyte Esterase Urine RBC Urine WBC Ur Epithelial Cells Urine Bacteria Blood Type Antibody Screen Crossmatch BBK History Checked Results Reviewed to Date: Yes Critical Care Progress Note - Extremities/Vascular Does the Patient have a Central Venous Catheter?: No Does the Patient have a Douglas Catheter?: No Does the Patient need a Douglas Catheter?: No - Prophylaxis GI Prophylaxis GI: PPI - Prophylaxis DVT Prophylaxis DVT: SCDs - Nutrition Nutrition: Nutrition Category Date Time Status Liquid Diet [DIET] Diets 07/28/17 Dinner Ordered Assessment/Plan - Assessment and Plan (Free Text) Assessment: Patient is a 81 yo male admitted with anemia, severe sepsis, lactic acidosis, and generalized weakness. Plan: Neuro- CT head with no acute changes, stable at baseline Pulm: stable, nasal cannula prn to maintain o2 sat above 90%. Cardio: h/o CAD with stent. Presented with severe sepsis with hypotention which has responded well to fluid Maintain MAP above 65%. h/o htn- on Norvasc, clonidine, lisinopril also on Lipitor for hld. ID: Severe sepsis with unclear etiology, resolving with lactic acid trending downward. - no wbc, afebrile, bcx and ucx pending - ID following - Continue merrem, Levaquin and vanco - urine legionella and procal pending - ID following GI- CT abdomen and pelvis with postoperative changes associated with distention of the distal descending colon, area of fecal impaction, early/incomplete small bowel obstruction - Consider surgical consult - Diet as tolerated/ bowel regiments - on Pepcid for gi prophylaxis Renal: DEANNA likely pre-renal - less likely post renal, patient is voiding - Nephro following, urine lytes pending - Creatinine responded well to fluid hydration Heme- acute on chronic anemia s/p 1 units if prbc transfusion with improvement in hgb to 9.8. - will continue to monitor. Endo: Will maintain euglycemia On synthroid for hypothyroidism DVT prophylaxis: external compressive devices Patient seen, examined and case discussed with the attending. - Date & Time Date: 07/29/17 Time: 09:25 <Richar Wilburn - Last Filed: 07/29/17 11:04> CCU Objective - Vital Signs / Intake & Output Vital Signs (Last 4 hours): Vital Signs Pulse Resp BP Pulse Ox 07/29/17 08:50 88 18 99 07/29/17 08:40 77 20 99 07/29/17 08:30 76 19 100 07/29/17 08:20 79 27 H 99 07/29/17 08:10 81 20 99 07/29/17 08:00 80 15 114/63 99 07/29/17 07:50 80 14 98 07/29/17 07:40 84 13 98 07/29/17 07:30 85 98 07/29/17 07:20 82 30 H 97 07/29/17 07:10 85 27 H 105/54 L 95 Intake and Output (Last 8hrs): Intake & Output 07/28/17 07/29/17 07/29/17 22:59 06:59 14:59 Intake Total 740 450 Output Total 800 Balance -60 450 Weight 117 lb Intake: IV 640 Right Antecubital 640 Oral 100 Blood Product 325 Red Blood Cells Cpd As1 325 Lr Unit [id number] Other 125 Red Blood Cells Cpd As1 125 Lr Unit [id number] Output: Urine 800 Urine, Voided 800 Other: Voiding Method Urinal - Medications Active Medications: Active Medications Generic Name Dose Route Start Last Admin Trade Name Freq PRN Reason Stop Dose Admin Amlodipine Besylate 5 mg 07/29/17 10:00 Norvasc PO DAILY [facility] Atorvastatin Calcium 20 mg 07/29/17 10:00 Lipitor PO DAILY [facility] Clonidine HCl 1 patch 08/01/17 10:00 Catapres Tts1 0.1 Mg/24 Hr TD FRI [facility] Ergocalciferol 1 cap 08/01/17 10:00 Drisdol 50,000 Intl Units Cap PO Fr@1000 ZACK Famotidine 20 mg 07/28/17 22:00 Pepcid PO HS ZACK Lactated Ringer's 1,000 mls @ 999 mls/hr 07/28/17 14:45 07/28/17 16:58 Lactated Ringer's IV 999 mls/hr .Q1H1M ZACK Administration Meropenem/Sodium Chloride 1 gm in 100 mls @ 100 mls/hr 07/28/17 22:15 02:45 Meropenem 1g/Ns 100ml Ivpb IVPB 100 mls/hr Q12 ZACK Administration Protocol Levofloxacin/Dextrose 250 mg in 50 mls @ 50 mls/hr 07/29/17 10:00 Levaquin 250mg IVPB 08/07/17 10:01 DAILY ZACK Protocol Levothyroxine Sodium 25 mcg 07/29/17 06:00 07/29/17 09:11 Synthroid PO 25 mcg 0600 ZACK Administration Lisinopril 10 mg 07/29/17 10:00 Zestril PO DAILY ZACK Non-Formulary Medication 1 each 07/29/17 10:00 Multivit,Iron,Min 5/Folic Acid [Strovite Forte Caplet] PO DAILY ZACK Non-Formulary Medication 500 mg 07/29/17 10:00 Rierq-5-Ihsu Ethyl Esters [Delta 3] PO BID ZACK Non-Formulary Medication 150 mg 07/29/17 10:00 Ranitidine Hcl [Acid Machine Straw Hat Presser] PO DAILY [facility] Polyethylene Glycol 17 gm 07/29/17 10:00 Miralax PO BID ZACK Tramadol HCl 50 mg 07/28/17 20:18 Ultram PO Q6H PRN Pain, Mild (1-3) - Patient Studies Lab Studies: Lab Studies 07/29/17 07/29/17 07/29/17 Range/Units 07:00 07:00 01:05 WBC 5.4 (4.5-11.0) 10^3/ul RBC 3.13 L (3.5-6.1) 10^6/uL Hgb 9.8 L D (14.0-18.0) g/dL Hct 29.1 L (42.0-52.0) % MCV 93.0 (80.0-105.0) fl MCH 31.3 (25.0-35.0) pg MCHC 33.7 (31.0-37.0) g/dl RDW 14.8 H (11.5-14.5) % Plt Count 182 (120.0-450.0) 10^3/uL MPV 10.2 (7.0-11.0) fl Gran % 61.2 (50.0-68.0) % Lymph % (Auto) 24.0 (22.0-35.0) % Anderson % (Auto) 11.1 H (1.0-6.0) % Eos % (Auto) 3.5 (1.5-5.0) % Baso % (Auto) 0.2 (0.0-3.0) % Gran # 3.32 (1.4-6.5) Lymph # (Auto) 1.3 (1.2-3.4) Anderson # (Auto) 0.6 (0.1-0.6) Eos # (Auto) 0.2 (0.0-0.7) Baso # (Auto) 0.01 (0.0-2.0) K/mm3 pO2 (30-55) mm/Hg VBG pH (7.32-7.43) VBG pCO2 (40-60) VBG HCO3 (21-28) mmol/l VBG Total CO2 (22-28) mmol.L VBG O2 Sat (Calc) (40-65) % VBG Base Excess (0.0-2.0) mmol/L VBG Potassium (3.6-5.2) mmol/L Sodium 137 (132-148) mmol/L Chloride 105 (98-107) mmol/L Glucose (75-110) mg/dl Lactate (0.7-2.1) mmol/L FiO2 % Potassium 4.5 (3.6-5.0) mmol/L Carbon Dioxide 22 (21-33) mmol/L Anion Gap 15 (10-20) BUN 56 H (7-21) mg/dL Creatinine 1.4 (0.8-1.5) mg/dl Est GFR ( Amer) 59 Est GFR (Non-Af Amer) 49 Random Glucose 92 (70-110) mg/dL Calcium 8.5 (8.4-10.5) mg/dL Total Bilirubin 1.0 (0.2-1.3) mg/dL AST 79 H D (17-59) U/L ALT 45 (7-56) U/L Alkaline Phosphatase 39 (38-126) U/L Total Protein 5.8 (5.8-8.3) g/dL Albumin 3.0 (3.0-4.8) g/dL Globulin 2.8 gm/dL Albumin/Globulin Ratio 1.1 (1.1-1.8) Venous Blood Potassium (3.6-5.2) mmol/L Urine Color Yellow (YELLOW) Urine Appearance Sl cloudy (CLEAR) Urine pH 6.0 (4.7-8.0) Ur Specific Lester 1.010 (1.005-1.035) Urine Protein Trace H (<30 mg/dL) mg/dL Urine Glucose (UA) Negative (NEGATIVE) mg/dL Urine Ketones Negative (NEGATIVE) mg/dL Urine Blood Large H (NEGATIVE) Urine Nitrate Negative (NEGATIVE) Urine Bilirubin Negative (NEGATIVE) Urine Urobilinogen 0.2 (<1 E.U./dL) E.U./dL Ur Leukocyte Esterase Negative (NEGATIVE) Farrukh/uL Urine RBC 1 - 3 (0-2) /hpf Urine WBC 0 - 2 (0-6) /hpf Ur Epithelial Cells 0 - 2 (0-5) /hpf Urine Bacteria Few (NEG) Blood Type Antibody Screen Crossmatch BBK History Checked 07/28/17 07/28/17 Range/Units 21:35 17:40 WBC (4.5-11.0) 10^3/ul RBC (3.5-6.1) 10^6/uL Hgb (14.0-18.0) g/dL Hct (42.0-52.0) % MCV (80.0-105.0) fl MCH (25.0-35.0) pg MCHC (31.0-37.0) g/dl RDW (11.5-14.5) % Plt Count (120.0-450.0) 10^3/uL MPV (7.0-11.0) fl Gran % (50.0-68.0) % Lymph % (Auto) (22.0-35.0) % Anderson % (Auto) (1.0-6.0) % Eos % (Auto) (1.5-5.0) % Baso % (Auto) (0.0-3.0) % Gran # (1.4-6.5) Lymph # (Auto) (1.2-3.4) Anderson # (Auto) (0.1-0.6) Eos # (Auto) (0.0-0.7) Baso # (Auto) (0.0-2.0) K/mm3 pO2 38 (30-55) mm/Hg VBG pH 7.38 (7.32-7.43) VBG pCO2 39.0 L (40-60) VBG HCO3 23.1 (21-28) mmol/l VBG Total CO2 24.3 (22-28) mmol.L VBG O2 Sat (Calc) 75.1 H (40-65) % VBG Base Excess -1.8 L (0.0-2.0) mmol/L VBG Potassium 4.5 (3.6-5.2) mmol/L Sodium 134.0 (132-148) mmol/L Chloride 103.0 (98-107) mmol/L Glucose 109 (75-110) mg/dl Lactate 1.7 (0.7-2.1) mmol/L FiO2 21.0 % Potassium (3.6-5.0) mmol/L Carbon Dioxide (21-33) mmol/L Anion Gap (10-20) BUN (7-21) mg/dL Creatinine (0.8-1.5) mg/dl Est GFR ( Amer) Est GFR (Non-Af Amer) Random Glucose (70-110) mg/dL Calcium (8.4-10.5) mg/dL Total Bilirubin (0.2-1.3) mg/dL AST (17-59) U/L ALT (7-56) U/L Alkaline Phosphatase (38-126) U/L Total Protein (5.8-8.3) g/dL Albumin (3.0-4.8) g/dL Globulin gm/dL Albumin/Globulin Ratio (1.1-1.8) Venous Blood Potassium 4.5 (3.6-5.2) mmol/L Urine Color (YELLOW) Urine Appearance (CLEAR) Urine pH (4.7-8.0) Ur Specific Lester (1.005-1.035) Urine Protein (<30 mg/dL) mg/dL Urine Glucose (UA) (NEGATIVE) mg/dL Urine Ketones (NEGATIVE) mg/dL Urine Blood (NEGATIVE) Urine Nitrate (NEGATIVE) Urine Bilirubin (NEGATIVE) Urine Urobilinogen (<1 E.U./dL) E.U./dL Ur Leukocyte Esterase (NEGATIVE) Farrukh/uL Urine RBC (0-2) /hpf Urine WBC (0-6) /hpf Ur Epithelial Cells (0-5) /hpf Urine Bacteria (NEG) Blood Type A POSITIVE Antibody Screen Negative Crossmatch See Detail BBK History Checked Patient has bt Laboratory Results - last 24 hr 07/28/17 07/28/17 07/29/17 17:40 21:35 01:05 WBC RBC Hgb Hct MCV MCH MCHC RDW Plt Count MPV Gran % Lymph % (Auto) Anderson % (Auto) Eos % (Auto) Baso % (Auto) Gran # Lymph # (Auto) Anderson # (Auto) Eos # (Auto) Baso # (Auto) pO2 38 VBG pH 7.38 VBG pCO2 39.0 L VBG HCO3 23.1 VBG Total CO2 24.3 VBG O2 Sat (Calc) 75.1 H VBG Base Excess -1.8 L VBG Potassium 4.5 Sodium 134.0 Chloride 103.0 Glucose 109 Lactate 1.7 FiO2 21.0 Potassium Carbon Dioxide Anion Gap BUN Creatinine Est GFR ( Amer) Est GFR (Non-Af Amer) Random Glucose Calcium Total Bilirubin AST ALT Alkaline Phosphatase Total Protein Albumin Globulin Albumin/Globulin Ratio Venous Blood Potassium 4.5 Urine Color Yellow Urine Appearance Sl cloudy Urine pH 6.0 Ur Specific Lester 1.010 Urine Protein Trace H Urine Glucose (UA) Negative Urine Ketones Negative Urine Blood Large H Urine Nitrate Negative Urine Bilirubin Negative Urine Urobilinogen 0.2 Ur Leukocyte Esterase Negative Urine RBC 1 - 3 Urine WBC 0 - 2 Ur Epithelial Cells 0 - 2 Urine Bacteria Few Blood Type A POSITIVE Antibody Screen Negative Crossmatch See Detail BBK History Checked Patient has bt 07/29/17 07/29/17 07:00 07:00 WBC 5.4 RBC 3.13 L Hgb 9.8 L D Hct 29.1 L MCV 93.0 MCH 31.3 MCHC 33.7 RDW 14.8 H Plt Count 182 MPV 10.2 Gran % 61.2 Lymph % (Auto) 24.0 Anderson % (Auto) 11.1 H Eos % (Auto) 3.5 Baso % (Auto) 0.2 Gran # 3.32 Lymph # (Auto) 1.3 Anderson # (Auto) 0.6 Eos # (Auto) 0.2 Baso # (Auto) 0.01 pO2 VBG pH VBG pCO2 VBG HCO3 VBG Total CO2 VBG O2 Sat (Calc) VBG Base Excess VBG Potassium Sodium 137 Chloride 105 Glucose Lactate FiO2 Potassium 4.5 Carbon Dioxide 22 Anion Gap 15 BUN 56 H Creatinine 1.4 Est GFR ( Amer) 59 Est GFR (Non-Af Amer) 49 Random Glucose 92 Calcium 8.5 Total Bilirubin 1.0 AST 79 H D ALT 45 Alkaline Phosphatase 39 Total Protein 5.8 Albumin 3.0 Globulin 2.8 Albumin/Globulin Ratio 1.1 Venous Blood Potassium Urine Color Urine Appearance Urine pH Ur Specific Lester Urine Protein Urine Glucose (UA) Urine Ketones Urine Blood Urine Nitrate Urine Bilirubin Urine Urobilinogen Ur Leukocyte Esterase Urine RBC Urine WBC Ur Epithelial Cells Urine Bacteria Blood Type Antibody Screen Crossmatch BBK History Checked Critical Care Progress Note - Nutrition Nutrition: Nutrition Category Date Time Status Liquid Diet [DIET] Diets 07/28/17 Dinner Ordered Assessment/Plan - Assessment and Plan (Free Text) Plan: 81yo male a/w anemia, severe sepsis, lactic acidosis, weakness Weakness Fatigue Syncope Anemia Severe Sepsis Lactic Acidosis Abdominal Distention/Pain CAD s/p stents Dehydration Acute renal failure Incomplete SBO - currently afebrile, HD stable, SBP ranging 100-125, HR 80s NSR - on exam, AAOx3, NAD, - lactic acid 1.7, Cr improving Recommend: - supp o2 as needed - wilson culture, BCx, Ucx, check Procal, UA - broad spectrum antibiotics, as per ID - IVF hydration - hold BP meds - renal sonogram - Ulytes - renal consult - ECHO - FS control - consider surgical eval for partial SBO - GI ppx, PPI - DVT ppx, HSQ
[2017-07-29 08:42] LABS: CALCIUM 8.5 mg/dL (8.4-10.5)
[2017-07-29 08:43] LABS: ALB/GLOB RATIO 1.1 (1.1-1.8)
[2017-07-29] MEDS: Levothyroxine 25 MCG TAB PO SCH (09:11)
--- NOTE | 2017-07-29 09:54 | CARD ---
APPROVED REPORT EKG Measurement Heart [id number] <Conclusion> Probably AF, new Low voltage limb leads Electrical artifact present
--- NOTE | 2017-07-29 09:59 | CARD ---
APPROVED REPORT EKG Measurement Heart [id number] <Conclusion> Atrial fibrillation with rapid ventricular response Low voltage QRS limb leads Septal infarct, age undetermined Electrical artifact present No change
[2017-07-29] MEDS ORDERED: RANITIDINE HCL 150 MG PO SCH (10:00)
[2017-07-29] MEDS: levoFLOXacin 250 mg in D5W 250 MG/50 ML BAG IVPB SCH (11:25)
[2017-07-29] MEDS: POLYETHYLENE GLYCOL 3350 17 GM/Dose PACKET PO SCH ×2 (11:27→17:57)
[2017-07-29] MEDS: Non Formulary Medication (Omega-3-Acid Ethyl Esters [Omega 3] 500 MG) PO SCH ×2 (11:29→17:03)
[2017-07-29] MEDS: RANITIDINE HCL 150 MG PO SCH (11:29)
[2017-07-29] MEDS: FOLIC ACID PO SCH (11:34)
[2017-07-29] MEDS: MULTIVIT IRON MIN PO SCH (11:34)
[2017-07-29] MEDS: [UNRECOGNIZED DRUG - OTHER] PO SCH (11:34)
[2017-07-29] MEDS: Sodium Chloride 0.9% 1,000 ML IV SCH (11:53)
--- NOTE | 2017-07-29 11:54 | CP.PCM.CON ---
History of Present Illness - History of Present Illness History of Present Illness: Surgery consult note for Dr. Bruce Canada DO, PGY - 1 Reason For Consult: Partial SBO HPI: 81 year old male with pertinent past medical history of diverticular disease and sigmoid colon resection presents with a 6 day duration of constipation and a two day duration of nausea and vomiting. Patient states that he started having bouts of constipation last Friday through , then passed really hard bowels on Friday, and has been constipated since. He then started having bouts of nausea and vomiting on Friday, came into the ED on Friday. Patient feels much better today. Denies fevers, chills, chest pain, shortness of breath. Past Surgical History: Sigmoid colon resection Past Medical History: HTN, DM, CAD, Diverticular dz Allergies: NKDA Social History: Patient denies alcohol, tobacco, illicits Hospitalizations: December 2016 for sigmoid colon resection Family History: Noncontributory Medications: See MAR Review of Systems: Constitutional: patient denies fever, chills, generalized weakness ENT: patient denies dysphagia, otalgia, hearing deficit, rhinorrhea Eyes: patient denies sudden loss of vision, diplopia, blurred vision MSK: patient denies muscle stiffness, joint pain, extremity cramping Cardio: patient denies shortness of breath, heart murmur, chest pain Pulm: patient denies cough, hemoptysis, wheeze Gastrointestinal: +see HPI Genitourinary: patient denies burning on urination, urinary frequency, hematuria, urinary urgency Neuro: patient denies paresis, paresthesia, dizziness, headache, numbness , tingling Derm: patient denies skin changes, lesions, nail changes Endo: patient denies intolerance to heat/cold, diaphoresis, night sweats, polydipsia Psych: patient denies anxiety, depression, mood changes Past Patient History - Infectious Disease Hx of Infectious Diseases: None - Tetanus Immunizations Tetanus Immunization: Unknown - Past Social History Smoking Status: Never Smoked - CARDIAC Hx Cardiac Disorders: Yes Hx Hypertension: Yes - PULMONARY Hx Respiratory Disorders: No - NEUROLOGICAL Hx Dizziness: Yes - HEENT Hx Cataracts: Yes (b/l sx) - RENAL Hx Kidney Stones: No - ENDOCRINE/METABOLIC Hx Diabetes Mellitus Type 2: Yes Hx Hypothyroidism: Yes - HEMATOLOGICAL/ONCOLOGICAL Hx Anemia: Yes - INTEGUMENTARY Other/Comment: ble skin discoloration, llq abd ddressings x2 dry and intact over i&d site - MUSCULOSKELETAL/RHEUMATOLOGICAL Hx Falls: Yes - GASTROINTESTINAL Hx Gastrointestinal Disorders: Yes (hiatal hernia, gi bleed) - GENITOURINARY/GYNECOLOGICAL Hx Reproductive Disorders: No - PSYCHIATRIC Hx Psychophysiologic Disorder: No Hx Substance Use: No - SURGICAL HISTORY Hx Surgeries: Yes Other/Comment: s/p abdominla surgery with mesh placement - ANESTHESIA Hx Anesthesia Reactions: No Hx Malignant Hyperthermia: No Meds Allergies/Adverse Reactions: Allergies Allergy/AdvReac Type Severity Reaction Status Date / Time No Known Allergies Allergy Verified 03/25/17 14:12 - Medications Medications: Current Medications Amlodipine Besylate (Norvasc) 5 mg PO DAILY [facility] Atorvastatin Calcium (Lipitor) 20 mg PO DAILY [facility] Clonidine HCl (Catapres Tts1 0.1 Mg/24 Hr) 1 patch TD FRI [facility] Ergocalciferol (Drisdol 50,000 Intl Units Cap) 1 cap PO Fr@1000 [facility] Famotidine (Pepcid) 20 mg PO HS [facility] Meropenem/Sodium Chloride (Meropenem 1g/Ns 100ml Ivpb) 1 gm in 100 mls @ 100 mls/hr IVPB Q12 [facility] PRN Reason: Protocol Last Admin: 07/29/17 02:45 Dose: 100 mls/hr Levofloxacin/Dextrose (Levaquin 250mg) 250 mg in 50 mls @ 50 mls/hr IVPB DAILY [facility] PRN Reason: Protocol Stop: 08/07/17 10:01 Sodium Chloride (Sodium Chloride 0.9%) 1,000 mls @ 60 mls/hr IV .[id number] [facility] Levothyroxine Sodium (Synthroid) 25 mcg PO 0600 [facility] Last Admin: 07/29/17 09:11 Dose: 25 mcg Lisinopril (Zestril) 10 mg PO DAILY [facility] Non-Formulary Medication (Multivit,Iron,Min 5/Folic Acid [Strovite Forte Caplet] ) 1 each PO DAILY [facility] Non-Formulary Medication (Efvgc-5-Mlgz Ethyl Esters [[place] 3]) 500 mg PO BID [facility] Non-Formulary Medication (Ranitidine Hcl [Acid Dental Office Assistant]) 150 mg PO DAILY [facility] Polyethylene Glycol (Miralax) 17 gm PO BID [facility] Tramadol HCl (Ultram) 50 mg PO Q6H PRN PRN Reason: Pain, Mild (1-3) Physical Exam - Constitutional Appears: Well - Head Exam Head Exam: ATRAUMATIC, NORMAL INSPECTION, NORMOCEPHALIC - Eye Exam Eye Exam: EOMI, Normal appearance, PERRL Pupil Exam: NORMAL ACCOMODATION, PERRL - ENT Exam ENT Exam: Mucous Membranes Moist, Normal Exam - Neck Exam Neck exam: Positive for: Normal Inspection - Respiratory Exam Respiratory Exam: Clear to Auscultation Bilateral, NORMAL BREATHING PATTERN - Cardiovascular Exam Cardiovascular Exam: REGULAR RHYTHM - GI/Abdominal Exam GI & Abdominal Exam: Normal Bowel Sounds, Soft. absent: Tenderness Additional comments: Hard stools palpated, but abdomen soft non tender non distended - Rectal Exam Rectal Exam: NORMAL INSPECTION Additional comments: brown, soft stools with no gross blood - Exam Exam: Circumcision, NORMAL INSPECTION External exam: NORMAL EXTERNAL EXAM Speculum exam: NORMAL SPECULUM EXAM Bimanual exam: NORMAL BIMANUAL EXAM - Extremities Exam Extremities exam: Positive for: normal inspection - Back Exam Back exam: NORMAL INSPECTION - Neurological Exam Neurological exam: Alert, CN II-XII Intact, Normal Gait, Oriented x3, Reflexes Normal - Psychiatric Exam Psychiatric exam: Normal Affect, Normal Mood - Skin Skin Exam: Dry, Intact, Normal Color, Warm - Additional Findings Additional findings: Physical Exam: Vital Signs as below Const'l: awake alert & oriented x 4, no acute distress Head/Neck: neck supple, no jvd, trachea midline, carotid midline, no cervical/head mass Eyes: pupils equally reactive to light and accommodation, nonicteric sclera, extraocular intact ENT: auditory acuity grossly intact, throat not congested, no nasal deformity Cardio: regular rate, regular rhythm, no murmurs rubs gallops, no carotid bruit, normal s1, s2 Pulm: no accessory muscle use, equal normal breath sounds bilaterally, clear to ausculation bilaterally Abd: soft non tender non-distended, normal bowel sounds x 4 quadrants, no palpable masses Derm: no rashes, no ulcers, no lesions Extr: no edema, no cyanosis, no calf tenderness, no lesions, no varicosities Neuro: cranial nerves II-XII grossly intact, upper extremity and lower extremity 5/5 muscle strength bilaterally, no loss of sensation in upper extremities, lower extremities bilaterally Results - Vital Signs Recent Vital Signs: Last Vital Signs Temp 98.0 F 07/28/17 23:25 Pulse 88 07/29/17 08:50 Resp 18 07/29/17 08:50 BP 114/63 07/29/17 08:00 Pulse Ox 99 07/29/17 08:50 - Labs Result Diagrams: 07/29/17 07:00 07/29/17 07:00 Labs: Laboratory Results - last 24 hr 07/28/17 07/28/17 07/29/17 17:40 21:35 01:05 WBC RBC Hgb Hct MCV MCH MCHC RDW Plt Count MPV Gran % Lymph % (Auto) [place] % (Auto) Eos % (Auto) Baso % (Auto) Gran # Lymph # (Auto) [place] # (Auto) Eos # (Auto) Baso # (Auto) pO2 38 VBG pH 7.38 VBG pCO2 39.0 L VBG HCO3 23.1 VBG Total CO2 24.3 VBG O2 Sat (Calc) 75.1 H VBG Base Excess -1.8 L VBG Potassium 4.5 Sodium 134.0 Chloride 103.0 Glucose 109 Lactate 1.7 FiO2 21.0 Potassium Carbon Dioxide Anion Gap BUN Creatinine Est GFR ( Amer) Est GFR (Non-Af Amer) Random Glucose Calcium Total Bilirubin AST ALT Alkaline Phosphatase Total Protein Albumin Globulin Albumin/Globulin Ratio Venous Blood Potassium 4.5 Urine Color Yellow Urine Appearance Sl cloudy Urine pH 6.0 Ur Specific [place] 1.010 Urine Protein Trace H Urine Glucose (UA) Negative Urine Ketones Negative Urine Blood Large H Urine Nitrate Negative Urine Bilirubin Negative Urine Urobilinogen 0.2 Ur Leukocyte Esterase Negative Urine RBC 1 - 3 Urine WBC 0 - 2 Ur Epithelial Cells 0 - 2 Urine Bacteria Few Blood Type A POSITIVE Antibody Screen Negative Crossmatch See Detail BBK History Checked Patient has bt 07/29/17 07/29/17 07:00 07:00 WBC 5.4 RBC 3.13 L Hgb 9.8 L D Hct 29.1 L MCV 93.0 MCH 31.3 MCHC 33.7 RDW 14.8 H Plt Count 182 MPV 10.2 Gran % 61.2 Lymph % (Auto) 24.0 [place] % (Auto) 11.1 H Eos % (Auto) 3.5 Baso % (Auto) 0.2 Gran # 3.32 Lymph # (Auto) 1.3 [place] # (Auto) 0.6 Eos # (Auto) 0.2 Baso # (Auto) 0.01 pO2 VBG pH VBG pCO2 VBG HCO3 VBG Total CO2 VBG O2 Sat (Calc) VBG Base Excess VBG Potassium Sodium 137 Chloride 105 Glucose Lactate FiO2 Potassium 4.5 Carbon Dioxide 22 Anion Gap 15 BUN 56 H Creatinine 1.4 Est GFR ( Amer) 59 Est GFR (Non-Af Amer) 49 Random Glucose 92 Calcium 8.5 Total Bilirubin 1.0 AST 79 H D ALT 45 Alkaline Phosphatase 39 Total Protein 5.8 Albumin 3.0 Globulin 2.8 Albumin/Globulin Ratio 1.1 Venous Blood Potassium Urine Color Urine Appearance Urine pH Ur Specific [place]ann Urine Protein Urine Glucose (UA) Urine Ketones Urine Blood Urine Nitrate Urine Bilirubin Urine Urobilinogen Ur Leukocyte Esterase Urine RBC Urine WBC Ur Epithelial Cells Urine Bacteria Blood Type Antibody Screen Crossmatch BBK History Checked Assessment & Plan - Assessment and Plan (Free Text) Assessment: 81 year old male with pertinent past medical history of diverticular disease and sigmoid colon resection presented to [facility] ED with 6 days duration of constipation and 2 days of nausea and vomiting. Patient has diffuse impacted stool as well as diffuse diverticular disease, and SBO Plan - Bowel sounds in all four quadrants - CLD - GI is on case - Enema - Miralax BID - Hydration - After enema, patient may require NG tube - No acute surgical management needed - Rest of mgmt per Dr. Barrera
--- NOTE | 2017-07-29 15:08 | CP.PCM.CON ---
History of Present Illness - History of Present Illness History of Present Illness: CC: Constipation HPI: 81 year old male with h/o Dvierticulosis, sigmoid resection, HTN, DM, CAD admitted with partial SBO. He reports no BM since last friday. He says he hasn' t passed gas. He feels increased abdominal distention and diffuse discomfort as well. He denies rectal bleeding. No n/v. He does get some heartburn, but no dysphagia. No chest pain or sob. Had surgery last year for hernia repair/ infected mesh. No fever. No bm since admission. Reports remote h/o colonoscopy by GI in [place] who retired. Had egd last year with esophagitis. PShx: Sigmoid colon resection PMhx: HTN, DM, CAD, Diverticulosis SHx: no etoh, drugs, or tobacco FHx: no family history of crc. Past Patient History - Infectious Disease Hx of Infectious Diseases: None - Tetanus Immunizations Tetanus Immunization: Unknown - Past Social History Smoking Status: Never Smoked - CARDIAC Hx Cardiac Disorders: Yes Hx Hypertension: Yes - PULMONARY Hx Respiratory Disorders: No - NEUROLOGICAL Hx Dizziness: Yes - HEENT Hx Cataracts: Yes (b/l sx) - RENAL Hx Kidney Stones: No - ENDOCRINE/METABOLIC Hx Diabetes Mellitus Type 2: Yes Hx Hypothyroidism: Yes - HEMATOLOGICAL/ONCOLOGICAL Hx Anemia: Yes - INTEGUMENTARY Other/Comment: ble skin discoloration, llq abd ddressings x2 dry and intact over i&d site - MUSCULOSKELETAL/RHEUMATOLOGICAL Hx Falls: Yes - GASTROINTESTINAL Hx Gastrointestinal Disorders: Yes (hiatal hernia, gi bleed) - GENITOURINARY/GYNECOLOGICAL Hx Reproductive Disorders: No - PSYCHIATRIC Hx Psychophysiologic Disorder: No Hx Substance Use: No - SURGICAL HISTORY Hx Surgeries: Yes Other/Comment: s/p abdominla surgery with mesh placement - ANESTHESIA Hx Anesthesia Reactions: No Hx Malignant Hyperthermia: No Meds Allergies/Adverse Reactions: Allergies Allergy/AdvReac Type Severity Reaction Status Date / Time No Known Allergies Allergy Verified 03/25/17 14:12 - Medications Medications: Current Medications Amlodipine Besylate (Norvasc) 5 mg PO DAILY [facility] Last Admin: 07/29/17 11:28 Dose: 5 mg Atorvastatin Calcium (Lipitor) 20 mg PO DAILY [facility] Last Admin: 07/29/17 11:35 Dose: 20 mg Bisacodyl (Dulcolax) 10 mg RC BID [facility] Clonidine HCl (Catapres Tts1 0.1 Mg/24 Hr) 1 patch TD FRI [facility] Ergocalciferol (Drisdol 50,000 Intl Units Cap) 1 cap PO Fr@1000 [facility] Famotidine (Pepcid) 20 mg PO HS [facility] Meropenem/Sodium Chloride (Meropenem 1g/Ns 100ml Ivpb) 1 gm in 100 mls @ 100 mls/hr IVPB Q12 [facility] PRN Reason: Protocol Last Admin: 07/29/17 11:27 Dose: 100 mls/hr Levofloxacin/Dextrose (Levaquin 250mg) 250 mg in 50 mls @ 50 mls/hr IVPB DAILY [facility] PRN Reason: Protocol Stop: 08/07/17 10:01 Last Admin: 07/29/17 11:25 Dose: 50 mls/hr Sodium Chloride (Sodium Chloride 0.9%) 1,000 mls @ 60 mls/hr IV .[id number] [facility] Last Admin: 07/29/17 11:53 Dose: 60 mls/hr Levothyroxine Sodium (Synthroid) 25 mcg PO 0600 [facility] Last Admin: 07/29/17 09:11 Dose: 25 mcg Lisinopril (Zestril) 10 mg PO DAILY [facility] Mineral Oil (Fleet Mineral Oil Enema) 135 ml RC BID [facility] Non-Formulary Medication (Multivit,Iron,Min 5/Folic Acid [Strovite Forte Caplet] ) 1 each PO DAILY [facility] Last Admin: 07/29/17 11:34 Dose: Not Given Non-Formulary Medication (Sxzug-8-Gkyg Ethyl Esters [[place] 3]) 500 mg PO BID [facility] Last Admin: 07/29/17 11:29 Dose: Not Given Non-Formulary Medication (Ranitidine Hcl [Acid Boiler Coverer]) 150 mg PO DAILY [facility] Last Admin: 07/29/17 11:29 Dose: Not Given Polyethylene Glycol (Miralax) 17 gm PO BID [facility] Last Admin: 07/29/17 11:27 Dose: 17 gm Tramadol HCl (Ultram) 50 mg PO Q6H PRN PRN Reason: Pain, Mild (1-3) Physical Exam - Constitutional Appears: No Acute Distress, Chronically Ill - Head Exam Head Exam: ATRAUMATIC, NORMOCEPHALIC - Eye Exam Eye Exam: Normal appearance, PERRL. absent: Scleral icterus - ENT Exam ENT Exam: Mucous Membranes Moist, Normal Oropharynx - Neck Exam Neck exam: Negative for: Lymphadenopathy, Thyromegaly - Respiratory Exam Respiratory Exam: Clear to Auscultation Bilateral, NORMAL BREATHING PATTERN - Cardiovascular Exam Cardiovascular Exam: REGULAR RHYTHM, +S1, +S2 - GI/Abdominal Exam GI & Abdominal Exam: Distended, Soft. absent: Firm, Guarding, Tenderness - Extremities Exam Extremities exam: Positive for: normal capillary refill. Negative for: calf tenderness, pedal edema - Neurological Exam Neurological exam: Alert, Oriented x3 - Psychiatric Exam Psychiatric exam: Normal Affect, Normal Mood - Skin Skin Exam: Dry, Normal Color, Warm Results - Vital Signs Recent Vital Signs: Last Vital Signs Temp 98.0 F 07/28/17 23:25 Pulse 81 07/29/17 11:28 Resp 18 07/29/17 08:50 BP 113/46 L 07/29/17 11:28 Pulse Ox 99 07/29/17 08:50 - Labs Result Diagrams: 07/29/17 07:00 07/29/17 07:00 Labs: Laboratory Results - last 24 hr 07/28/17 07/28/17 07/29/17 17:40 21:35 01:05 WBC RBC Hgb Hct MCV MCH MCHC RDW Plt Count MPV Gran % Lymph % (Auto) [place] % (Auto) Eos % (Auto) Baso % (Auto) Gran # Lymph # (Auto) [place] # (Auto) Eos # (Auto) Baso # (Auto) pO2 38 VBG pH 7.38 VBG pCO2 39.0 L VBG HCO3 23.1 VBG Total CO2 24.3 VBG O2 Sat (Calc) 75.1 H VBG Base Excess -1.8 L VBG Potassium 4.5 Sodium 134.0 Chloride 103.0 Glucose 109 Lactate 1.7 FiO2 21.0 Potassium Carbon Dioxide Anion Gap BUN Creatinine Est GFR ( Amer) Est GFR (Non-Af Amer) Random Glucose Calcium Total Bilirubin AST ALT Alkaline Phosphatase Total Protein Albumin Globulin Albumin/Globulin Ratio Venous Blood Potassium 4.5 Urine Color Yellow Urine Appearance Sl cloudy Urine pH 6.0 Ur Specific [place] 1.010 Urine Protein Trace H Urine Glucose (UA) Negative Urine Ketones Negative Urine Blood Large H Urine Nitrate Negative Urine Bilirubin Negative Urine Urobilinogen 0.2 Ur Leukocyte Esterase Negative Urine RBC 1 - 3 Urine WBC 0 - 2 Ur Epithelial Cells 0 - 2 Urine Bacteria Few Blood Type A POSITIVE Antibody Screen Negative Crossmatch See Detail BBK History Checked Patient has bt 07/29/17 07/29/17 07:00 07:00 WBC 5.4 RBC 3.13 L Hgb 9.8 L D Hct 29.1 L MCV 93.0 MCH 31.3 MCHC 33.7 RDW 14.8 H Plt Count 182 MPV 10.2 Gran % 61.2 Lymph % (Auto) 24.0 [place] % (Auto) 11.1 H Eos % (Auto) 3.5 Baso % (Auto) 0.2 Gran # 3.32 Lymph # (Auto) 1.3 [place] # (Auto) 0.6 Eos # (Auto) 0.2 Baso # (Auto) 0.01 pO2 VBG pH VBG pCO2 VBG HCO3 VBG Total CO2 VBG O2 Sat (Calc) VBG Base Excess VBG Potassium Sodium 137 Chloride 105 Glucose Lactate FiO2 Potassium 4.5 Carbon Dioxide 22 Anion Gap 15 BUN 56 H Creatinine 1.4 Est GFR ( Amer) 59 Est GFR (Non-Af Amer) 49 Random Glucose 92 Calcium 8.5 Total Bilirubin 1.0 AST 79 H D ALT 45 Alkaline Phosphatase 39 Total Protein 5.8 Albumin 3.0 Globulin 2.8 Albumin/Globulin Ratio 1.1 Venous Blood Potassium Urine Color Urine Appearance Urine pH Ur Specific [place] Urine Protein Urine Glucose (UA) Urine Ketones Urine Blood Urine Nitrate Urine Bilirubin Urine Urobilinogen Ur Leukocyte Esterase Urine RBC Urine WBC Ur Epithelial Cells Urine Bacteria Blood Type Antibody Screen Crossmatch BBK History Checked Assessment & Plan - Assessment and Plan (Free Text) Assessment: 81 year old male with h/o HTN, CAD, diverticulosis, sigmoid resection, hernia repair admitted with partial SBO and fecal impaction. 1. Partial SBO 2. Fecal impaction 3. Constipation Plan: -start bowel regimen per rectum -mineral oil enema bid, dulcolax pr x 2 -miralax BID by mouth -liquid diet -surgical eval - Date & Time Date: 07/29/17 Time: 15:08
[2017-07-29 17:25] LABS: CREATININE,RANDOM URINE 34 mg/dL
[2017-07-29] MEDS: Mineral Oil Enema 135 ml RC SCH (17:51)
--- NOTE | 2017-07-29 20:01 | CON ---
DATE: LOCATION: Patient seen in room 128, bed 6. CHIEF COMPLAINT: Weakness times several days. HISTORY OF PRESENT ILLNESS: This is a 81-year-old male with history of coronary artery disease, hypertension, hyperlipidemia, chronic obstructive lung disease, had colon surgery, colon resection, had a mesh, left inguinal abscess and drainage in the past, questionable fistula and patient is admitted through the emergency room, was seen in the emergency room by Dr. Derek Delgadillo. In the emergency room, patient complained of nausea, vomiting, abdominal pain and dizziness and weakness. Patient was found by the family members on the floor. He denied any fevers, any chills, had some mild shortness of breath. No chest pain. No headaches. PAST MEDICAL HISTORY: Significant for coronary artery disease, hypertension, chronic obstructive lung disease, and hyperlipidemia. PAST SURGICAL HISTORY: Significant for colon resection and cardiac stent placement. Patient also had a mesh, which was infected and removed. ALLERGIES: PATIENT HAS NO KNOWN ALLERGIES. MEDICATIONS AT HOME: Include tramadol, clonidine, amlodipine. PHYSICAL EXAMINATION: GENERAL: Patient is in bed, appears comfortable, awake. VITAL SIGNS: Temperature of 97.5; heart rate of 74, it was up to 92 to 94; respiratory rate of 18, it was up to 31; and blood pressure now is 106/63. The emergency room chart states the patient's blood pressure was down to 70s. HEENT: Unremarkable. NECK: Supple. LUNGS: Have decreased breath sounds. HEART: Normal S1, S2. ABDOMEN: Mild tenderness. No rebound or guarding. No masses. LABORATORY EXAMINATION: Reveals a white count of 4.9, hemoglobin of 7.5 and platelets of 189. Coagulation is noted. Chemistries reveals the BUN of 98, creatinine of 2.4. Patient's creatinine on last admission, which was in 03/2017 was 0.9 and today, it is 2.4. Patient's urinalysis is unremarkable. Microbiology is pending. Patient had a CAT scan of the abdomen and pelvis, which reveals atelectasis at the lung bases and patient does have an early incomplete small bowel obstruction, distal small bowel and patient had a chest x-ray, airspace disease in the left lower lobe. ASSESSMENT AND PLAN: A 81-year-old male with coronary artery disease, hypertension, hyperlipidemia, chronic obstructive lung disease, admitted with abdominal pain, hypotension, tachycardia and shortness of breath with increasing left lower lobe, severe sepsis with small bowel obstruction and acute kidney injury, left community-acquired pneumonia. Patient received a dose of vancomycin, currently on meropenem, and we will add Levaquin 250 mg IV q. 24 hours. pending blood cultures, urine cultures, sputum cultures, procalcitonin and urine for Legionella antigen, pancultures. We will make further recommendations on the initial workup results. Patient received vancomycin, currently on meropenem and we will make further recommendations. We will check on the EKG, thus far has not been read. Jonathan Woods MD
--- NOTE | 2017-07-30 01:52 | PN ---
DATE: SUBJECTIVE: Patient is a 81-year-old male. Patient was seen and examined on the bedside, looking comfortable. I saw him in the unit. No nausea, vomiting, or diarrhea. No hematuria or hematochezia. Tolerating food. No headache. No chest pain. No palpitation. No more blood in the stool. PHYSICAL EXAMINATION: VITAL SIGNS: Temperature 99.4, pulse 92, blood pressure 126/46, respiratory rate 20. HEENT: Head is normocephalic and atraumatic. Eyes: PERRLA. Extraocular muscles are intact. Conjunctivae clear. Nose patent. Mucous membrane moist. NECK: Supple. No carotid bruit. No JVD or thyromegaly. CHEST: Bilaterally symmetrical. HEART: S1 and S2 positive. LUNGS: Clear to auscultation. ABDOMEN: Soft. Bowel sounds positive. No organomegaly. EXTREMITIES: No edema. No cyanosis. NEUROLOGIC: The patient is awake and alert. Moving all four extremities. No focal deficit. MEDICATIONS: Catapres, vitamin D, Dulcolax, DuoNeb, Fleet Enema, Levaquin, Lipitor, meropenem, MiraLax, multivitamins, Norvasc, omega, Pepcid, ranitidine, NS, Synthroid, tramadol, Zestril. LABORATORY DATA: White blood cells 5.4, hemoglobin 9.8, hematocrit 29.1, platelets 182. Sodium 137, potassium 4.5, BUN 65, creatinine 1.4, AST 79. ASSESSMENT AND PLAN: Mr. Gabriela Page is a 81-year-old male with anemia, hyperkalemia, renal insufficiency, abnormal liver function test, proteinuria, hematuria. Patient has history of diverticulosis, sigmoid resection, hypertension, diabetes mellitus, coronary artery disease, admitted with partial small bowel obstruction, and according to the patient, no bowel movement since last Friday. He states he has not passed gas. He feels increased abdominal distention and diffuse discomfort as well. Has partial small bowel resection, fecal impaction, constipation, started bowel regimen per rectum, mineral oil enema b.i.d., Dulcolax b.i.d., MiraLax b.i.d. by mouth, liquid diet. Surgical consult called with Dr. Michael Rodriguez. According to Surgical Team, patient may require nasogastric tube. No acute surgical management needed. Seen by Dr. Woods, Infectious Disease. Patient received a dose of vancomycin. Continue on meropenem. Levaquin was added. Continue present treatment. Gastrointestinal and deep vein thrombosis prophylaxis. Repeat labs. We will follow with you. Hannah Ramirez MD
--- NOTE | 2017-07-30 02:18 | CON ---
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 History taken from both the patient and medical records. The patient reportedly was having fatigue and lethargy since Friday of last week; he reports that after eating some grilled chicken from an outside restaurant this past Friday, he developed an episode of vomiting and has been having abdominal pain since then; the patient has not had bowel movement since that time; has not been having much p.o. intake; vomitus was just the food content; denies any blood in vomitus; the patient otherwise has been having fatigue lately; denies any blood in stool or black stools. The patient was found to be profoundly hypotensive in the ED with systolic blood pressure ranging from 70s to 90s; was given 2 liter LR bolus with significant improvement in blood pressure; the patient was then admitted to ICU. PAST MEDICAL HISTORY: As above. SOCIAL HISTORY: . FAMILY HISTORY: . REVIEW OF SYSTEMS: CONSTITUTIONAL: Poor p.o. intake recently, but had been eating well prior to last week. HEENT: Denies any change in vision, occasional sore throat, or runny nose. RESPIRATORY: Denies any cough. Denies any difficulty breathing. CARDIOVASCULAR: Denies any chest pain or dyspnea on exertion. GASTROINTESTINAL: As per HPI, has not been passing gas per rectum since being admitted. GENITOURINARY: Reports nocturia, having to get up three to four times per night to urinate; otherwise, denies any difficulty urinating. MUSCULOSKELETAL: Reports intermittent neck pain going down his back; does not recall the name of the pain meds that he takes. NEUROLOGIC: The patient currently denies any dizziness. PSYCHIATRIC: Attributes his sleep difficulty to frequent urination. PHYSICAL EXAMINATION: VITAL SIGNS: This morning; blood pressure 114/63, heart rate 80, respirations 15, temperature 98.0, and O2 sat 99% on O2 via nasal cannula. GENERAL: No distress. Lying comfortably in bed, able to communicate coherently in full sentences. HEENT: Moist mucous membranes. Nonicteric. NECK: No JVD. RESPIRATORY: Mild bilateral basal rales. No respiratory distress. CARDIOVASCULAR: S1 and S2 normal. No murmurs. No gallops. No rubs. GASTROINTESTINAL: Abdomen is soft, distended, and lower quadrant tenderness present. GENITOURINARY: No bladder distention. EXTREMITIES: Trace bilateral lower leg edema. SKIN: Warm. No cyanosis. NEUROLOGIC: Mild tremor of outstretched hands, particularly on right. No numbness in feet. LABORATORY DATA: This morning CBC; WBC 5.4, hemoglobin 9.8 increased from 7.5, hematocrit 29.1, and platelets 182. Chemistry panel; sodium 137, potassium 4.5, chloride 105, bicarb 22, BUN 56, creatinine 1.4, and glucose 92. AST 79, ALT 45, and albumin 3.0. Urine studies, UA; trace protein, large blood, and 1 to 3 RBCs per high-power field. Total CK on presentation 434. Chest x-ray on presentation directly visualized. Lungs clear. CT abdomen and pelvis not showing any hydronephrosis. ASSESSMENT AND PLAN: 1. Acute kidney injury, rapid improvement with IV fluids is indicative of prerenal etiology; we will continue lactated Ringer at 60 mL/hour. 2. Anemia, profound drop in hemoglobin without any overt blood loss noted. The patient is now status post 1 unit packed red blood cells with improvement in hemoglobin. The patient is awaiting gastrointestinal consultation. We will follow. 3. Hypertension. The patient at home on amlodipine 5 mg daily, clonidine patch 0.1 mg, and lisinopril 10 mg daily. We will hold lisinopril for now in the setting of prerenal acute kidney injury. Thank you for this consult. We will be following closely. Abdulaziz Fletcher MD
[2017-07-30] MEDS: Albuterol-Ipratrop 3 mg / 0.5 (3 ml) UD IH SCH ×4 (02:40→21:00)
[2017-07-30] MEDS: Levothyroxine 25 MCG TAB PO SCH (05:32)
[2017-07-30] MEDS: Sodium Chloride 0.9% 1,000 ML IV SCH (05:32)
[2017-07-30 07:16] LABS: BASO # 0.03 K/mm3 (0.0-2.0); BASO % 0.6 % (0.0-3.0); EOS # 0.4 (0.0-0.7); EOS % 7.3 % (1.5-5.0); GRAN # 2.46 (1.4-6.5); GRAN % 47.5 % (50.0-68.0); HEMOGLOBIN 9.7 g/dL (14.0-18.0); LYMPH # 1.6 (1.2-3.4); LYMPH % 30.7 % (22.0-35.0); MEAN CELL VOLUME 93.6 fl (80.0-105.0); MEAN CORPUSCULAR HEMOGLOBIN 31.1 pg (25.0-35.0); MEAN CORPUSCULAR HGB CONC 33.2 g/dl (31.0-37.0); MEAN PLATELET VOLUME 9.9 fl (7.0-11.0); MONO # 0.7 (0.1-0.6); MONO % 13.9 % (1.0-6.0); RBC 3.12 10^6/uL (3.5-6.1); RED CELL DISTRIBUTION WIDTH 14.6 % (11.5-14.5); WHITE BLOOD COUNT 5.2 10^3/ul (4.5-11.0)
[2017-07-30 07:35] LABS: ALB/GLOB RATIO 1.1 (1.1-1.8); ALT/SGPT 46 U/L (7-56); AST/SGOT 68 U/L (17-59); BLOOD UREA NITROGEN 25 mg/dL (7-21); CALCIUM 8.3 mg/dL (8.4-10.5); GFR AFRICAN-AMERICAN > 60; GFR NON-AFRICAN AMERICAN > 60
--- NOTE | 2017-07-30 08:15 | HP ---
DATE OF EXAM: 07/28/2017 Patient is a 81-year-old male. Patient was seen and examined on the bedside in the unit on 07/28/2017. CHIEF COMPLAINT: Dizziness, lightheadedness. HISTORY OF PRESENT ILLNESS: Mr. Gabriela Page is a 81-year-old male with past medical history of arthritis, coronary artery disease, status post two cardiac stenting, hypertension, hypercholesterolemia, history of infected mesh, enterocutaneous fistula with colon resection, came to the emergency room due to dizziness for the past 3 days. Patient's family on the bedside, especially his daughters who provided history. Patient is a very poor historian. Patient has abdominal pain, nausea, and vomiting. Due to his poor p.o. intake, he looks like dehydrated. Patient reports that he felt dizzy and fell 3 times, admitting that he hit his head once. Patient denies any loss of consciousness. Patient's family stated that he was found lying on the floor, Patient states that he has diffuse body aches, abdominal pain, and distention. Denies chest pain, fever, or chills. PAST MEDICAL HISTORY: Hypertension, cataract surgery, diabetes mellitus type 2, hypothyroidism, skin discoloration, hiatal hernia, GI bleeding, coronary stents, left inguinal hernia with mesh, abscess removed. FAMILY HISTORY: Father and mother, noncontributory. HABITS: Never smoked. No drugs. ALLERGIES: NO ALLERGIES. HOME MEDICATIONS: Zestril, Mobic, multivitamins, Norvasc, atorvastatin, tramadol, and lactulose. REVIEW OF SYSTEMS: Patient is seen and examined on the bedside in the unit, looks like confused, awake and alert. Eyes normal. Respiratory normal. Has abdominal pain and distended. No dysuria or hematuria. PHYSICAL EXAMINATION: VITAL SIGNS: Temperature 98.6, pulse 112, respiratory rate 18, blood pressure 119/50 , pulse oximetry 99%. HEENT: Head: Normocephalic and atraumatic. Eyes: PERRLA. Extraocular muscles are intact. Conjunctivae clear. Nose is patent. NECK: Supple. No carotid bruit, JVD, or thyromegaly. CHEST: Bilaterally symmetrical. HEART: S1 and S2 positive. LUNGS: Clear to auscultation. ABDOMEN: Soft, distended. Bowel sounds positive. EXTREMITIES: No edema. No cyanosis. NEUROLOGIC: Awake, alert, but looks like confused. LABORATORY DATA: White blood cells 4.9, hemoglobin 7.5, hematocrit 22.2, and platelets 189. Sodium 134, potassium 5.2. BUN 98, creatinine 2.4. Glucose 101. ASSESSMENT AND PLAN: Mr. Gabriela Page is a 81-year-old male with anemia, hyperkalemia, renal insufficiency, looks like dehydrated, has history of coronary artery disease, history of 2 stents, hypertension, hypercholesterolemia, history of infected mesh, status post abdominal surgery, colon resection, came with severe sepsis , septic shock, lactic acidosis, weakness, abdominal distention, pain, coronary artery disease, status post stents. Patient is afebrile. Recommended oxygen, wilson culture, broad-spectrum antibiotics. Patient is getting vancomycin and cefepime , IV hydration, Hold blood pressure medication. Renal sonogram, lytes, echo. Patient admitted in the unit. Patient needs at least one unit of packed RBCs. Deep venous thrombosis and gastrointestinal prophylaxis. CAT scan of abdomen and pelvis reviewed by me. Postoperative changes associated with distention of the distal descending colon at the site and there are areas of fecal impaction incomplete small bowel obstruction. Antibiotics given. CAT scan of the head done also. Nephrology consult called with Dr. Abdulaziz Fletcher. Patient seen by Dr. Woods, Dr. Farrar, and Dr. Bentley Du. We will follow up. Hannah Ramirez MD [facility]
--- NOTE | 2017-07-30 09:57 | CON ---
DATE: 07/29/2017 REFERRING PHYSICIAN: Hannah Ramirez MD REASON FOR CONSULTATION: Chronic lung disease, may have sleep apnea syndrome. HISTORY OF PRESENT ILLNESS: This is a 81-year gentleman well known to me from previous admission, noncompliant with followup, history of intestinal obstruction, also has a history of inguinal hernia repair surgically in the past, had an infected mesh requiring laparotomy and partial resection of the sigmoid in the past, chronic constipation, has multiple abdominal adhesions, recurrent constipation, diabetes, hypertension, coronary artery disease, who comes in with small bowel obstruction, seen by GI, started with bowel regimen rectally. He is sitting up in a chair, daughter is at bedside. No hemoptysis, no hematemesis. No leg pain, no leg swelling. PAST MEDICAL HISTORY: Hypertension, diabetes, coronary artery disease, diverticulosis, suspected sleep apnea syndrome. SOCIAL HISTORY: Nonsmoker, nondrinker. FAMILY HISTORY: No significant cardiopulmonary disease reported. ALLERGIES: NONE KNOWN. MEDICATIONS: He is on clonidine 0.1 mg weekly patch, vitamin D 50,000 units weekly, Dulcolax 10 mg rectally twice a day, given Fleet enema, mineral oil enema rectally twice a day, Levaquin 250 mg IV daily, started Lipitor 20 mg daily, also on meropenem 1 g IV q. 12 hours, MiraLax 17 g p.o. twice a day as ordered, Norvasc 5 mg daily, omega-3 500 mg twice a day, Pepcid 20 mg at bedtime, ranitidine 150 mg daily, IV fluid normal saline 60 mL per hour, Synthroid 25 mcg daily, Ultram 50 mg q. 6 hours. p.r.n., Zestril 10 mg daily. REVIEW OF SYSTEMS: No headache. No rhinitis. Gets short of breath. No chest pain. Has some abdominal pain, constipation. No dysuria. No leg pain, no leg swelling. PHYSICAL EXAMINATION VITAL SIGNS: Sitting up in a chair, in no acute distress. Temperature is 99, heart rate is 90, respiratory rate is 24, blood pressure 126/46, pulse ox 100% on nasal cannula. HEENT: Moist mucous membrane. Small oral cavity. Crowded airway. NECK: Supple. No JVD. LUNGS: Has a fair airflow with rhonchi. HEART: S1 and S2. ABDOMEN: Positive bowel sounds, distended and mild tenderness. EXTREMITIES: There is no edema. NEUROLOGIC: Awake, alert and follows simple commands. LABORATORY DATA: Shows hemoglobin 9.8, hematocrit 29.1, WBC 5.4, platelet is 182. INR 1.01. PTT 22. VBG show pH of 7.38, pCO2 of 39, O2 of 38. Sodium 137, potassium 4.5, chloride 105, bicarbonate 22, BUN 56, creatinine 1.4, glucose 92, calcium is 8.5. AST is 79, ALT 45, alkaline phosphatase is 39. Albumin is 3.0, procalcitonin 1.6. Urinalysis; wbc of 0-2. Urine Legionella is negative. Blood culture; there is no growth. Has a CT of the abdomen and pelvis done on admission, which shows postoperative changes associated with distention of the distal descending colon. At the site and beyond, there are areas of fecal impaction, early/incomplete small bowel obstruction, atelectasis at the lung bases. IMPRESSION AND PLAN: Bowel obstruction, constipation, coronary artery disease, hypertension, hyperlipidemia, chronic lung disease, may have sleep apnea syndrome, basilar atelectasis. Agree with the present management. Continue bowel regimen. Replace thyroid therapy. IV fluid, on antibiotics. Spoke to the patient's family at bedside. All the questions answered. We will add inhaled bronchodilator, incentive spirometer. Continue gastric prophylaxis, SCD to lower extremity. Thank you and we will follow with you. Dakotah Farrar MD
[2017-07-30] MEDS: levoFLOXacin 250 mg in D5W 250 MG/50 ML BAG IVPB SCH (10:00)
[2017-07-30] MEDS: POLYETHYLENE GLYCOL 3350 17 GM/Dose PACKET PO SCH ×2 (10:00→18:21)
[2017-07-30] MEDS: [UNRECOGNIZED DRUG - OTHER] PO SCH (10:37)
[2017-07-30] MEDS: MULTIVIT IRON MIN PO SCH (10:37)
[2017-07-30] MEDS: FOLIC ACID PO SCH (10:37)
[2017-07-30] MEDS: Non Formulary Medication (Omega-3-Acid Ethyl Esters [Omega 3] 500 MG) PO SCH ×2 (10:37→18:22)
[2017-07-30] MEDS: RANITIDINE HCL 150 MG PO SCH (10:38)
[2017-07-30] MEDS: Mineral Oil Enema 135 ml RC SCH ×2 (10:49→18:21)
[2017-07-30] MEDS: Meropenem 1g/NS 100mL IVPB 1 GM/100 ML PIGGYBACK IVPB SCH ×2 (11:18→22:28)
--- NOTE | 2017-07-30 11:58 | CP.PCM.PN ---
<Xavier Bejarano - Last Filed: 07/30/17 11:59> Subjective - Date & Time of Evaluation Date of Evaluation: 07/30/17 Time of Evaluation: 11:55 - Subjective Subjective: GI Progress note - Xavier Bejarano PGY2 Patient seen and examined this morning. No acute overnight events reported. Patient has had 2 soft, large bowel movements today and has been tolerating clear liquid diet. Denies abdominal pain, nausea, vomiting, fever, chills. Will advance diet to full liquid. 12point ROS as per above otherwise negative. Objective - Vital Signs/Intake and Output Vital Signs (last 24 hours): Temp Pulse Resp BP Pulse Ox 98.2 F 74 18 134/59 L 100 07/30/17 06:00 07/30/17 10:00 07/30/17 06:00 07/30/17 10:00 07/30/17 10:00 - Medications Medications: Current Medications Albuterol/Ipratropium (Duoneb 3 Mg/0.5 Mg (3 Ml) Ud) 3 ml IH [id number] [facility] Last Admin: 07/30/17 08:42 Dose: 3 ml Amlodipine Besylate (Norvasc) 5 mg PO DAILY [facility] Last Admin: 07/30/17 10:00 Dose: 5 mg Atorvastatin Calcium (Lipitor) 20 mg PO DAILY [facility] Last Admin: 07/30/17 10:00 Dose: 20 mg Bisacodyl (Dulcolax) 10 mg RC BID [facility] Last Admin: 07/30/17 11:14 Dose: 10 mg Clonidine HCl (Catapres Tts1 0.1 Mg/24 Hr) 1 patch TD FRI [facility] Ergocalciferol (Drisdol 50,000 Intl Units Cap) 1 cap PO Fr@1000 [facility]ACK Famotidine (Pepcid) 20 mg PO HS [facility] Last Admin: 07/29/17 21:30 Dose: 20 mg Meropenem/Sodium Chloride (Meropenem 1g/Ns 100ml Ivpb) 1 gm in 100 mls @ 100 mls/hr IVPB Q12 [facility]ACK PRN Reason: Protocol Last Admin: 07/30/17 11:18 Dose: 100 mls/hr Levofloxacin/Dextrose (Levaquin 250mg) 250 mg in 50 mls @ 50 mls/hr IVPB DAILY [facility] PRN Reason: Protocol Stop: 08/07/17 10:01 Last Admin: 07/30/17 10:00 Dose: 50 mls/hr Sodium Chloride (Sodium Chloride 0.9%) 1,000 mls @ 60 mls/hr IV .[id number] [facility] Last Admin: 07/30/17 05:32 Dose: 60 mls/hr Levothyroxine Sodium (Synthroid) 25 mcg PO 0600 [facility] Last Admin: 07/30/17 05:32 Dose: 25 mcg Lisinopril (Zestril) 10 mg PO DAILY [facility] Mineral Oil (Fleet Mineral Oil Enema) 135 ml RC BID [facility] Stop: 07/30/17 18:01 Last Admin: 07/30/17 10:49 Dose: 135 ml Non-Formulary Medication (Multivit,Iron,Min 5/Folic Acid [Strovite Forte Caplet] ) 1 each PO DAILY [facility] Last Admin: 07/30/17 10:37 Dose: Not Given Non-Formulary Medication (Pwyan-8-Kzxm Ethyl Esters [[place] 3]) 500 mg PO BID [facility] Last Admin: 07/30/17 10:37 Dose: Not Given Non-Formulary Medication (Ranitidine Hcl [Acid Engineering Inspection Assistant]) 150 mg PO DAILY [facility] Last Admin: 07/30/17 10:38 Dose: Not Given Polyethylene Glycol (Miralax) 17 gm PO BID [facility] Last Admin: 07/30/17 10:00 Dose: 17 gm Tramadol HCl (Ultram) 50 mg PO Q6H PRN PRN Reason: Pain, Mild (1-3) - Labs Labs: 07/30/17 05:30 07/30/17 05:30 PT 11.5 SECONDS (9.4-12.5) 07/28/17 15:20 INR 1.01 (0.93-1.08) 07/28/17 15:20 APTT 22.2 Seconds (25.1-36.5) L 07/28/17 15:20 - Constitutional Appears: No Acute Distress - Head Exam Head Exam: ATRAUMATIC, NORMAL INSPECTION, NORMOCEPHALIC - Eye Exam Eye Exam: EOMI Pupil Exam: PERRL - Respiratory Exam Respiratory Exam: absent: Rales, Rhonchi, Wheezes - Cardiovascular Exam Cardiovascular Exam: +S1, +S2. absent: Gallop, Rubs - GI/Abdominal Exam GI & Abdominal Exam: Soft. absent: Distended, Firm, Guarding, Rigid, Tenderness - Neurological Exam Neurological Exam: Alert, Awake, Oriented x3 - Psychiatric Exam Psychiatric exam: Normal Affect, Normal Mood - Skin Skin Exam: Dry, Intact, Normal Color, Warm Assessment and Plan - Assessment and Plan (Free Text) Plan: 81yo male with history of hypertension, CAD, diverticulosis s/p sigmoid resection and hernia repair admitted with partial small bowel obstruction and fecal impaction 1. Partial SBO 2. Fecal impaction 3. Constipation 4. Anemia 5. Sepsis 6. Acute kidney injury -CT abdomen/pelvis reviewed which revealed distention of the distal descending colon as well as fecal impaction, early/incomplete small bowel obstruction; see full report -Continue with mineral oil enema bid, dulcolax CA BID and miralax PO BID -Diet advanced to full liquids -H/H presently stable; patient is s/p 1u PRBC transfusion and responded appropriately -Surgery consulted - Dr. Barrera -Continue medical management as per primary team Patient seen and case discussed/reviewed with attending, Dr. Miller <Jhony Miller MD - Last Filed: 07/30/17 14:39> Objective - Vital Signs/Intake and Output Vital Signs (last 24 hours): Temp Pulse Resp BP Pulse Ox 98.2 F 100 H 16 112/62 100 07/30/17 06:00 07/30/17 12:00 07/30/17 12:00 07/30/17 12:06 07/30/17 12:06 Intake and Output: 07/30/17 07/30/17 06:59 18:59 Intake Total 350 Output Total 200 Balance 150 - Medications Medications: Current Medications Albuterol/Ipratropium (Duoneb 3 Mg/0.5 Mg (3 Ml) Ud) 3 ml IH [id number] [facility] Last Admin: 07/30/17 13:40 Dose: 3 ml Amlodipine Besylate (Norvasc) 5 mg PO DAILY [facility] Last Admin: 07/30/17 10:00 Dose: 5 mg Atorvastatin Calcium (Lipitor) 20 mg PO DAILY [facility] Last Admin: 07/30/17 10:00 Dose: 20 mg Bisacodyl (Dulcolax) 10 mg RC BID [facility] Last Admin: 07/30/17 11:14 Dose: 10 mg Clonidine HCl (Catapres Tts1 0.1 Mg/24 Hr) 1 patch TD FRI [facility] Ergocalciferol (Drisdol 50,000 Intl Units Cap) 1 cap PO Fr@1000 [facility] Famotidine (Pepcid) 20 mg PO HS [facility] Last Admin: 07/29/17 21:30 Dose: 20 mg Meropenem/Sodium Chloride (Meropenem 1g/Ns 100ml Ivpb) 1 gm in 100 mls @ 100 mls/hr IVPB Q12 [facility]ACK PRN Reason: Protocol Last Admin: 07/30/17 11:18 Dose: 100 mls/hr Levofloxacin/Dextrose (Levaquin 250mg) 250 mg in 50 mls @ 50 mls/hr IVPB DAILY [facility] PRN Reason: Protocol Stop: 08/07/17 10:01 Last Admin: 07/30/17 10:00 Dose: 50 mls/hr Sodium Chloride (Sodium Chloride 0.9%) 1,000 mls @ 60 mls/hr IV .[id number] [facility] Last Admin: 07/30/17 05:32 Dose: 60 mls/hr Levothyroxine Sodium (Synthroid) 25 mcg PO 0600 [facility] Last Admin: 07/30/17 05:32 Dose: 25 mcg Lisinopril (Zestril) 10 mg PO DAILY [facility] Mineral Oil (Fleet Mineral Oil Enema) 135 ml RC BID [facility] Stop: 07/30/17 18:01 Last Admin: 07/30/17 10:49 Dose: 135 ml Non-Formulary Medication (Multivit,Iron,Min 5/Folic Acid [Strovite Forte Caplet] ) 1 each PO DAILY [facility] Last Admin: 07/30/17 10:37 Dose: Not Given Non-Formulary Medication (Jsxab-1-Evpz Ethyl Esters [[place] 3]) 500 mg PO BID [facility] Last Admin: 07/30/17 10:37 Dose: Not Given Non-Formulary Medication (Ranitidine Hcl [Acid Engineering Inspection Assistant]) 150 mg PO DAILY [facility] Last Admin: 07/30/17 10:38 Dose: Not Given Polyethylene Glycol (Miralax) 17 gm PO BID [facility] Last Admin: 07/30/17 10:00 Dose: 17 gm Tramadol HCl (Ultram) 50 mg PO Q6H PRN PRN Reason: Pain, Mild (1-3) - Labs Labs: 07/30/17 05:30 07/30/17 05:30 PT 11.5 SECONDS (9.4-12.5) 07/28/17 15:20 INR 1.01 (0.93-1.08) 07/28/17 15:20 APTT 22.2 Seconds (25.1-36.5) L 07/28/17 15:20 Attending/Attestation - Attestation I have personally seen and examined this patient.: Yes I have fully participated in the care of the patient.: Yes I have reviewed all pertinent clinical information, including history, physical exam and plan: Yes Notes (Text): 07/30/17 14:38 Patient seen with medical receptionist medical assistant in am. This is a 81 year old male with h/o HTN, CAD, diverticulosis, sigmoid resection, hernia repair admitted with partial SBO and fecal impaction which has resolved. He had 2 large bowel movements after enemas and laxatives. Abdomen soft and non tender. Will start full liquid diet. No further GI work up required. Will sign off now. Thank you for letting us participate in the care of your patient
--- NOTE | 2017-07-30 12:54 | CP.PCM.PN ---
Subjective - Date & Time of Evaluation Date of Evaluation: 07/30/17 Time of Evaluation: 12:49 - Subjective Subjective: General surgery progress note for Dr. Barrera Patient seen and examined at bedside. Passed two large bowel movements over night, soft brown stools. Patient feels much better, denies any fevers, chills , nausea and vomiting right now. Objective - Vital Signs/Intake and Output Vital Signs (last 24 hours): Temp Pulse Resp BP Pulse Ox 98.2 F 74 18 112/62 100 07/30/17 06:00 07/30/17 10:00 07/30/17 06:00 07/30/17 12:06 07/30/17 12:06 Intake and Output: 07/30/17 07/30/17 06:59 18:59 Intake Total 350 Output Total 200 Balance 150 - Medications Medications: Current Medications Albuterol/Ipratropium (Duoneb 3 Mg/0.5 Mg (3 Ml) Ud) 3 ml IH [id number] [facility] Last Admin: 07/30/17 08:42 Dose: 3 ml Amlodipine Besylate (Norvasc) 5 mg PO DAILY [facility] Last Admin: 07/30/17 10:00 Dose: 5 mg Atorvastatin Calcium (Lipitor) 20 mg PO DAILY [facility] Last Admin: 07/30/17 10:00 Dose: 20 mg Bisacodyl (Dulcolax) 10 mg RC BID [facility] Last Admin: 07/30/17 11:14 Dose: 10 mg Clonidine HCl (Catapres Tts1 0.1 Mg/24 Hr) 1 patch TD FRI [facility] Ergocalciferol (Drisdol 50,000 Intl Units Cap) 1 cap PO Fr@1000 [facility] Famotidine (Pepcid) 20 mg PO HS [facility] Last Admin: 07/29/17 21:30 Dose: 20 mg Meropenem/Sodium Chloride (Meropenem 1g/Ns 100ml Ivpb) 1 gm in 100 mls @ 100 mls/hr IVPB Q12 [facility] PRN Reason: Protocol Last Admin: 07/30/17 11:18 Dose: 100 mls/hr Levofloxacin/Dextrose (Levaquin 250mg) 250 mg in 50 mls @ 50 mls/hr IVPB DAILY [facility] PRN Reason: Protocol Stop: 08/07/17 10:01 Last Admin: 07/30/17 10:00 Dose: 50 mls/hr Sodium Chloride (Sodium Chloride 0.9%) 1,000 mls @ 60 mls/hr IV .[id number] [facility] Last Admin: 07/30/17 05:32 Dose: 60 mls/hr Levothyroxine Sodium (Synthroid) 25 mcg PO 0600 [facility] Last Admin: 07/30/17 05:32 Dose: 25 mcg Lisinopril (Zestril) 10 mg PO DAILY [facility] Mineral Oil (Fleet Mineral Oil Enema) 135 ml RC BID [facility] Stop: 07/30/17 18:01 Last Admin: 07/30/17 10:49 Dose: 135 ml Non-Formulary Medication (Multivit,Iron,Min 5/Folic Acid [Strovite Forte Caplet] ) 1 each PO DAILY [facility] Last Admin: 07/30/17 10:37 Dose: Not Given Non-Formulary Medication (Rikzk-1-Mhss Ethyl Esters [[place] 3]) 500 mg PO BID [facility] Last Admin: 07/30/17 10:37 Dose: Not Given Non-Formulary Medication (Ranitidine Hcl [Acid Babbitt Spinner]) 150 mg PO DAILY [facility] Last Admin: 07/30/17 10:38 Dose: Not Given Polyethylene Glycol (Miralax) 17 gm PO BID [facility] Last Admin: 07/30/17 10:00 Dose: 17 gm Tramadol HCl (Ultram) 50 mg PO Q6H PRN PRN Reason: Pain, Mild (1-3) - Labs Labs: 07/30/17 05:30 07/30/17 05:30 PT 11.5 SECONDS (9.4-12.5) 07/28/17 15:20 INR 1.01 (0.93-1.08) 07/28/17 15:20 APTT 22.2 Seconds (25.1-36.5) L 07/28/17 15:20 - Additional Findings Additional findings: Physical Exam: Vital Signs as below Const'l: awake alert & oriented x 4, no acute distress Head/Neck: neck supple, no jvd, trachea midline, carotid midline, no cervical/head mass Eyes: pupils equally reactive to light and accommodation, nonicteric sclera, extraocular intact ENT: auditory acuity grossly intact, throat not congested, no nasal deformity Cardio: regular rate, regular rhythm, no murmurs rubs gallops, no carotid bruit, normal s1, s2 Pulm: no accessory muscle use, equal normal breath sounds bilaterally, clear to ausculation bilaterally Abd: soft non tender non-distended, normal bowel sounds x 4 quadrants, no palpable masses Derm: no rashes, no ulcers, no lesions Extr: no edema, no cyanosis, no calf tenderness, no lesions, no varicosities Neuro: cranial nerves II-XII grossly intact, upper extremity and lower extremity 5/5 muscle strength bilaterally, no loss of sensation in upper extremities, lower extremities bilaterally Assessment and Plan - Assessment and Plan (Free Text) Assessment: Assessment 81 year old male with pertinent past medical history of diverticular disease and sigmoid colon resection presented to [facility] with 6 days duration of constipation and 2 days of nausea and vomiting. Patient has diffuse impacted stool as well as diffuse diverticular disease, and SBO Plan: Plan - Bowel sounds in all four quadrants - CLD - GI is on case - follow recs - Medication per primary team - Miralax BID - Hydration - No NG Tube necessary - No acute surgical management needed - Rest of mgmt per Dr. Barrera
--- NOTE | 2017-07-30 15:34 | PN ---
DATE: 07/30/2017 SUBJECTIVE: The patient seen in bed, in no acute distress, was seen early this morning in 128, bed 6. OBJECTIVE: GENERAL: He is awake and responsive. VITAL SIGNS: Temperature of 98, blood pressure is 130/60, respiratory rate of 18, heart rate of 75. HEENT: Unremarkable. NECK: Supple. LUNGS: Decreased breath sounds. HEART: Normal S1, S2. ABDOMEN: Soft, nontender. LABORATORY EXAMINATION: Reveals a white count of 5.2, hemoglobin of 9, platelets of 221. Chemistries reveal a BUN of 25, creatinine of 1.0. Procalcitonin is 1.66. Urinalysis is unremarkable and urine for Legionella antigen is negative. Microbiology reveals the blood cultures are negative and Dr. Ramirez's note from yesterday is reviewed. Dr. Farrar's consultation is reviewed. Dr. Du's consultation from yesterday is also reviewed. ASSESSMENT/PLAN: A 81-year-old male was seen earlier in 128, bed 6 with history of coronary artery disease, hypertension, hyperlipidemia, chronic obstructive lung disease, colon surgery, colon resection, and a mesh in the left inguinal abscess, drainage in the past. He was admitted to the emergency room with nausea, vomiting, dizziness. At this time, with severe sepsis, small bowel obstruction, acute kidney injury, questionable left community-acquired pneumonia on meropenem and Levaquin, elevated procalcitonin. The patient's CAT scan of the abdomen and pelvis is noted. We will continue the present course. Jonathan Woods MD
--- NOTE | 2017-07-30 19:04 | CP.PCM.PN ---
Subjective - Date & Time of Evaluation Date of Evaluation: 07/30/17 Time of Evaluation: 11:00 - Subjective Subjective: Reports multiple BM since yesterday after being given enema; tolerating liquid diet; Objective - Vital Signs/Intake and Output Vital Signs (last 24 hours): Temp Pulse Resp BP Pulse Ox 98.5 F 96 H 28 H 115/79 94 L 07/30/17 16:00 07/30/17 17:01 07/30/17 16:58 07/30/17 17:01 07/30/17 17:01 Intake and Output: 07/30/17 07/31/17 18:59 06:59 Intake Total 590 Output Total 200 Balance 390 - Medications Medications: Current Medications Albuterol/Ipratropium (Duoneb 3 Mg/0.5 Mg (3 Ml) Ud) 3 ml IH [id number] [facility] Last Admin: 07/30/17 13:40 Dose: 3 ml Amlodipine Besylate (Norvasc) 5 mg PO DAILY [facility] Last Admin: 07/30/17 10:00 Dose: 5 mg Atorvastatin Calcium (Lipitor) 20 mg PO DAILY [facility] Last Admin: 07/30/17 10:00 Dose: 20 mg Bisacodyl (Dulcolax) 10 mg RC BID [facility] Last Admin: 07/30/17 18:21 Dose: Not Given Clonidine HCl (Catapres Tts1 0.1 Mg/24 Hr) 1 patch TD FRI [facility] Ergocalciferol (Drisdol 50,000 Intl Units Cap) 1 cap PO Fr@1000 [facility] Famotidine (Pepcid) 20 mg PO HS [facility] Last Admin: 07/29/17 21:30 Dose: 20 mg Meropenem/Sodium Chloride (Meropenem 1g/Ns 100ml Ivpb) 1 gm in 100 mls @ 100 mls/hr IVPB Q12 [facility] PRN Reason: Protocol Last Admin: 07/30/17 11:18 Dose: 100 mls/hr Levofloxacin/Dextrose (Levaquin 250mg) 250 mg in 50 mls @ 50 mls/hr IVPB DAILY [facility] PRN Reason: Protocol Stop: 08/07/17 10:01 Last Admin: 07/30/17 10:00 Dose: 50 mls/hr Sodium Chloride (Sodium Chloride 0.9%) 1,000 mls @ 60 mls/hr IV .[id number] [facility] Last Admin: 07/30/17 05:32 Dose: 60 mls/hr Levothyroxine Sodium (Synthroid) 25 mcg PO 0600 [facility] Last Admin: 07/30/17 05:32 Dose: 25 mcg Lisinopril (Zestril) 10 mg PO DAILY [facility] Non-Formulary Medication (Multivit,Iron,Min 5/Folic Acid [Strovite Forte Caplet] ) 1 each PO DAILY [facility] Last Admin: 07/30/17 10:37 Dose: Not Given Non-Formulary Medication (Eqoen-3-Oufu Ethyl Esters [[place] 3]) 500 mg PO BID [facility] Last Admin: 07/30/17 18:22 Dose: Not Given Non-Formulary Medication (Ranitidine Hcl [Acid Batchmaker]) 150 mg PO DAILY [facility] Last Admin: 07/30/17 10:38 Dose: Not Given Polyethylene Glycol (Miralax) 17 gm PO BID [facility] Last Admin: 07/30/17 18:21 Dose: Not Given Tramadol HCl (Ultram) 50 mg PO Q6H PRN PRN Reason: Pain, Mild (1-3) - Labs Labs: 07/30/17 05:30 07/30/17 05:30 PT 11.5 SECONDS (9.4-12.5) 07/28/17 15:20 INR 1.01 (0.93-1.08) 07/28/17 15:20 APTT 22.2 Seconds (25.1-36.5) L 07/28/17 15:20 - Constitutional Appears: Non-toxic, No Acute Distress - Eye Exam Eye Exam: Normal appearance. absent: Scleral icterus - ENT Exam ENT Exam: Mucous Membranes Moist - Respiratory Exam Respiratory Exam: Clear to Ausculation Bilateral. absent: Respiratory Distress - Cardiovascular Exam Cardiovascular Exam: RRR, +S1, +S2 - GI/Abdominal Exam GI & Abdominal Exam: Soft. absent: Distended, Tenderness - Extremities Exam Additional comments: no leg edema; - Neurological Exam Neurological Exam: Alert, Awake - Skin Skin Exam: Warm. absent: Cyanosis Assessment and Plan (1) DEANNA (acute kidney injury) Assessment & Plan: Resolved; pre-renal etiology; continuing gentle IVF for now as patient is just starting back diet; Status: Acute (2) HTN (hypertension) Assessment & Plan: On amlodipine 5 mg daily, continue; BP on lower end of normal, holding lisinopril; need to clarify outpatient BP meds (patient doesn't know names, doesn't recall being on clonidine patch); Status: Acute (3) Anemia Assessment & Plan: Marked drop in hgb from a few months ago; currently stable after prbc transfusion; stool positive for occult blood; getting iron studies, B12, folate levels; Status: Acute
[2017-07-31] MEDS: Albuterol-Ipratrop 3 mg / 0.5 (3 ml) UD IH SCH ×3 (02:05→20:15)
--- NOTE | 2017-07-31 04:15 | PN ---
DATE: 07/30/2016 PULMONARY PROGRESS NOTE REFERRING PHYSICIAN: Hannah Ramirez MD. SUBJECTIVE: He is lying in the bed, sleepy, arousable. Night was unremarkable. Has a good day today. Has multiple bowel movement. Abdomen feels much better. Pain is much better. Mild cough. No nausea. No leg pain or leg swelling. OBJECTIVE: GENERAL: In no acute distress. VITAL SIGNS: Temperature is 98, heart rate is 96, respiratory rate is 20, blood pressure 115/79, pulse ox 94% on room air. HEENT: Moist mucous membrane. No ulcer or thrush noted. NECK: Supple. No JVD. LUNGS: Have a few scattered rhonchi. HEART: S1 and S2. ABDOMEN: Positive bowel sounds. Soft. EXTREMITIES: There is no edema. NEUROLOGIC: Awake, alert, and follows simple commands. MEDICATIONS: He is on clonidine patch weekly, vitamin D 50,000 units daily, Dulcolax was placed on hold, DuoNeb q. 6 hours, Dulcolax, Levaquin 250 mg daily, Lipitor 20 mg daily, meropenem 1 g IV q.12 hours, MiraLax 17 g twice a day, also on multivitamin/iron/folic acid forted capsule together (Strovite) one a day, Norvasc 5 mg daily, omega-3 at 500 mg twice a day, Pepcid 20 mg daily, ranitidine 150 mg daily, IV fluid normal saline 60 mL/hour, Synthroid 25 mcg daily, Ultram 50 mg q. 6 hours p.r.n., Zestril 10 mg daily. LABORATORY DATA: Shows hemoglobin 9.7, hematocrit 29.2, WBC 5.2, platelet is 221. Sodium 137, potassium 3.9, chloride 103, bicarbonate 26, BUN 25, creatinine 1.0, glucose 108, calcium is 8.3, AST 68, ALT 46, alk phos is 40, albumin is 3.0, procalcitonin 1.6. Stool occult blood is positive. Microbiology: Blood culture, urine culture, MRSA screen is negative. IMPRESSION AND PLAN: Bowel obstruction with constipation - much improved today, coronary artery disease, hypertension, hyperlipidemia, chronic lung disease, may have sleep apnea syndrome, basilar atelectasis versus infiltrate. Procalcitonin is positive. From a Pulmonary point of view, doing better. We will continue bronchodilator, stool softener, antibiotics. Follow up electrolytes in the morning. Out of bed to chair if possible. Thank you and we will follow with you. Dakotah Farrar MD
[2017-07-31] MEDS: Sodium Chloride 0.9% 1,000 ML IV SCH (05:48)
[2017-07-31] MEDS: Levothyroxine 25 MCG TAB PO SCH (05:50)
[2017-07-31 07:03] LABS: BASO # 0.02 K/mm3 (0.0-2.0); BASO % 0.4 % (0.0-3.0); EOS # 0.4 (0.0-0.7); EOS % 8.5 % (1.5-5.0); GRAN # 2.35 (1.4-6.5); GRAN % 46.3 % (50.0-68.0); HEMOGLOBIN 9.2 g/dL (14.0-18.0); LYMPH # 1.5 (1.2-3.4); LYMPH % 29.4 % (22.0-35.0); MEAN CELL VOLUME 92.8 fl (80.0-105.0); MEAN CORPUSCULAR HEMOGLOBIN 31.5 pg (25.0-35.0); MEAN CORPUSCULAR HGB CONC 33.9 g/dl (31.0-37.0); MEAN PLATELET VOLUME 9.1 fl (7.0-11.0); MONO # 0.8 (0.1-0.6); MONO % 15.4 % (1.0-6.0); RBC 2.92 10^6/uL (3.5-6.1); RED CELL DISTRIBUTION WIDTH 13.9 % (11.5-14.5); WHITE BLOOD COUNT 5.1 10^3/ul (4.5-11.0)
[2017-07-31 07:15] LABS: IRON 25 ug/dL (45-180)
[2017-07-31 07:24] LABS: % IRON SATURATION 12 % (20-55); TOTAL IRON BINDING CAPACITY 214 ug/dL (261-462)
[2017-07-31 07:48] LABS: ALBUMIN 2.6 g/dL (3.0-4.8); ALT/SGPT 41 U/L (7-56); AST/SGOT 45 U/L (17-59); BLOOD UREA NITROGEN 11 mg/dL (7-21); CALCIUM 8.1 mg/dL (8.4-10.5); GFR AFRICAN-AMERICAN > 60; GFR NON-AFRICAN AMERICAN > 60
[2017-07-31] MEDS ORDERED: Potassium Chloride 40 mEq/30 ml LIQ UD PO ONE (08:59)
--- NOTE | 2017-07-31 09:34 | CP.PCM.PN ---
Subjective - Date & Time of Evaluation Date of Evaluation: 07/31/17 Time of Evaluation: 09:30 - Subjective Subjective: Surgery: Dr. Barrera Pt seen and examined. Resting comfortably in bed. No complaints of pain. States he would like to eat more. +Flatus/BM. Objective - Vital Signs/Intake and Output Vital Signs (last 24 hours): Temp Pulse Resp BP Pulse Ox 98.3 F 81 19 128/68 100 07/31/17 08:00 07/31/17 08:00 07/31/17 04:00 07/31/17 08:00 07/31/17 08:00 Intake and Output: 07/31/17 07/31/17 06:59 18:59 Intake Total 920 Output Total 1550 Balance -630 - Medications Medications: Current Medications Albuterol/Ipratropium (Duoneb 3 Mg/0.5 Mg (3 Ml) Ud) 3 ml IH [id number] [facility] Last Admin: 07/31/17 07:55 Dose: 3 ml Amlodipine Besylate (Norvasc) 5 mg PO DAILY [facility] Last Admin: 07/30/17 10:00 Dose: 5 mg Atorvastatin Calcium (Lipitor) 20 mg PO DAILY [facility] Last Admin: 07/30/17 10:00 Dose: 20 mg Bisacodyl (Dulcolax) 10 mg RC BID [facility] Last Admin: 07/30/17 18:21 Dose: Not Given Clonidine HCl (Catapres Tts1 0.1 Mg/24 Hr) 1 patch TD FRI [facility] Ergocalciferol (Drisdol 50,000 Intl Units Cap) 1 cap PO Fr@1000 [facility] Famotidine (Pepcid) 20 mg PO HS [facility] Last Admin: 07/30/17 22:28 Dose: 20 mg Meropenem/Sodium Chloride (Meropenem 1g/Ns 100ml Ivpb) 1 gm in 100 mls @ 100 mls/hr IVPB Q12 [facility] PRN Reason: Protocol Last Admin: 07/30/17 22:28 Dose: 100 mls/hr Levofloxacin/Dextrose (Levaquin 250mg) 250 mg in 50 mls @ 50 mls/hr IVPB DAILY [facility] PRN Reason: Protocol Stop: 08/07/17 10:01 Last Admin: 07/30/17 10:00 Dose: 50 mls/hr Sodium Chloride (Sodium Chloride 0.9%) 1,000 mls @ 60 mls/hr IV .[id number] [facility] Last Admin: 07/31/17 05:48 Dose: 60 mls/hr Levothyroxine Sodium (Synthroid) 25 mcg PO 0600 [facility] Last Admin: 07/31/17 05:50 Dose: 25 mcg Lisinopril (Zestril) 10 mg PO DAILY [facility] Mupirocin (Bactroban Ointment) 0 gm NS BID [facility] Stop: 08/04/17 10:01 Last Admin: 07/31/17 05:49 Dose: 1 dose Non-Formulary Medication (Multivit,Iron,Min 5/Folic Acid [Strovite Forte Caplet] ) 1 each PO DAILY [facility] Last Admin: 07/30/17 10:37 Dose: Not Given Non-Formulary Medication (Zoqod-6-Iunb Ethyl Esters [[place] 3]) 500 mg PO BID [facility] Last Admin: 07/30/17 18:22 Dose: Not Given Non-Formulary Medication (Ranitidine Hcl [Acid Oracle Database Developer]) 150 mg PO DAILY [facility] Last Admin: 07/30/17 10:38 Dose: Not Given Polyethylene Glycol (Miralax) 17 gm PO BID [facility] Last Admin: 07/30/17 18:21 Dose: Not Given Tramadol HCl (Ultram) 50 mg PO Q6H PRN PRN Reason: Pain, Mild (1-3) - Labs Labs: 07/31/17 06:00 07/31/17 06:00 PT 11.5 SECONDS (9.4-12.5) 07/28/17 15:20 INR 1.01 (0.93-1.08) 07/28/17 15:20 APTT 22.2 Seconds (25.1-36.5) L 07/28/17 15:20 - Constitutional Appears: Non-toxic, No Acute Distress - Head Exam Head Exam: ATRAUMATIC, NORMOCEPHALIC - Eye Exam Eye Exam: EOMI - ENT Exam ENT Exam: Mucous Membranes Moist - Neck Exam Neck Exam: Full ROM - Respiratory Exam Respiratory Exam: NORMAL BREATHING PATTERN. absent: Accessory Muscle Use, Respiratory Distress - Cardiovascular Exam Cardiovascular Exam: RRR - GI/Abdominal Exam GI & Abdominal Exam: Soft. absent: Distended, Firm, Guarding, Rigid, Tenderness , Rebound - Extremities Exam Extremities Exam: absent: Calf Tenderness, Pedal Edema - Neurological Exam Neurological Exam: Alert, Awake, Oriented x3 - Psychiatric Exam Psychiatric exam: Normal Affect, Normal Mood - Skin Skin Exam: Dry, Normal Color, Warm Assessment and Plan - Assessment and Plan (Free Text) Assessment: 81M w. SBO vs constipation, resolved -Will advance diet to heart healthy -c/w bowel regimen -No plans for surgical intervention -will sign off, please re-consult if needed -d/w attending Edenilson, PGY3
[2017-07-31] MEDS: levoFLOXacin 250 mg in D5W 250 MG/50 ML BAG IVPB SCH (10:13)
[2017-07-31] MEDS: POLYETHYLENE GLYCOL 3350 17 GM/Dose PACKET PO SCH ×2 (10:14→17:53)
[2017-07-31] MEDS: Meropenem 1g/NS 100mL IVPB 1 GM/100 ML PIGGYBACK IVPB SCH ×2 (10:15→21:46)
[2017-07-31] MEDS: [UNRECOGNIZED DRUG - OTHER] PO SCH (10:18)
[2017-07-31] MEDS: Non Formulary Medication (Omega-3-Acid Ethyl Esters [Omega 3] 500 MG) PO SCH ×2 (10:18→18:45)
[2017-07-31] MEDS: RANITIDINE HCL 150 MG PO SCH (10:18)
[2017-07-31] MEDS: FOLIC ACID PO SCH (10:18)
[2017-07-31] MEDS: MULTIVIT IRON MIN PO SCH (10:18)
[2017-07-31 12:07] LABS: FERRITIN 60.5 ng/mL
[2017-07-31 12:38] LABS: FOLATE > 20.0 ng/mL
--- NOTE | 2017-07-31 14:06 | PN ---
DATE: 07/31/2017 SUBJECTIVE: Gabriela Page is seen. The abdomen is soft. He is having multiple bowel movements. Feels wonderful. I am not worried about him anymore. Denny Barrera MD
--- NOTE | 2017-07-31 19:24 | CP.PCM.PN ---
Subjective - Date & Time of Evaluation Date of Evaluation: 07/31/17 Time of Evaluation: 11:00 - Subjective Subjective: Tolerating liquid diet; passing gas per rectum; Objective - Vital Signs/Intake and Output Vital Signs (last 24 hours): Temp Pulse Resp BP Pulse Ox 98.4 F 88 70 H 128/74 99 07/31/17 12:00 07/31/17 12:00 07/31/17 12:00 07/31/17 12:28 07/31/17 12:00 Intake and Output: 07/31/17 08/01/17 18:59 06:59 Intake Total 120 Balance 120 - Medications Medications: Current Medications Albuterol/Ipratropium (Duoneb 3 Mg/0.5 Mg (3 Ml) Ud) 3 ml IH [id number] [facility] Last Admin: 07/31/17 07:55 Dose: 3 ml Amlodipine Besylate (Norvasc) 5 mg PO DAILY [facility] Last Admin: 07/31/17 10:14 Dose: 5 mg Atorvastatin Calcium (Lipitor) 20 mg PO DAILY [facility] Last Admin: 07/31/17 10:20 Dose: 20 mg Bisacodyl (Dulcolax) 10 mg RC BID [facility] Last Admin: 07/31/17 17:53 Dose: 10 mg Clonidine HCl (Catapres Tts1 0.1 Mg/24 Hr) 1 patch TD FRI [facility] Ergocalciferol (Drisdol 50,000 Intl Units Cap) 1 cap PO Fr@1000 [facility] Famotidine (Pepcid) 20 mg PO HS [facility] Last Admin: 07/30/17 22:28 Dose: 20 mg Meropenem/Sodium Chloride (Meropenem 1g/Ns 100ml Ivpb) 1 gm in 100 mls @ 100 mls/hr IVPB Q12 [facility] PRN Reason: Protocol Last Admin: 07/31/17 10:15 Dose: 100 mls/hr Levofloxacin/Dextrose (Levaquin 250mg) 250 mg in 50 mls @ 50 mls/hr IVPB DAILY [facility] PRN Reason: Protocol Stop: 08/07/17 10:01 Last Admin: 07/31/17 10:13 Dose: 50 mls/hr Sodium Chloride (Sodium Chloride 0.9%) 1,000 mls @ 60 mls/hr IV .[id number] [facility] Last Admin: 07/31/17 05:48 Dose: 60 mls/hr Iron Sucrose 100 mg/ Sodium (Chloride) 105 mls @ 210 mls/hr IVPB DAILY [facility] Stop: 08/09/17 10:29 Last Admin: 07/31/17 18:20 Dose: 210 mls/hr Levothyroxine Sodium (Synthroid) 25 mcg PO 0600 [facility] Last Admin: 07/31/17 05:50 Dose: 25 mcg Lisinopril (Zestril) 10 mg PO DAILY [facility] Mupirocin (Bactroban Ointment) 0 gm NS BID [facility] Stop: 08/04/17 10:01 Last Admin: 07/31/17 18:45 Dose: 1 dose Non-Formulary Medication (Multivit,Iron,Min 5/Folic Acid [Strovite Forte Caplet] ) 1 each PO DAILY [facility] Last Admin: 07/31/17 10:18 Dose: Not Given Non-Formulary Medication (Prmms-4-Mcjy Ethyl Esters [[place] 3]) 500 mg PO BID [facility] Last Admin: 07/31/17 18:45 Dose: Not Given Non-Formulary Medication (Ranitidine Hcl [Acid Pen And Pencil Repairer]) 150 mg PO DAILY [facility] Last Admin: 07/31/17 10:18 Dose: Not Given Polyethylene Glycol (Miralax) 17 gm PO BID [facility] Last Admin: 07/31/17 17:53 Dose: 17 gm Tramadol HCl (Ultram) 50 mg PO Q6H PRN PRN Reason: Pain, Mild (1-3) - Labs Labs: 07/31/17 06:00 07/31/17 06:00 PT 11.5 SECONDS (9.4-12.5) 07/28/17 15:20 INR 1.01 (0.93-1.08) 07/28/17 15:20 APTT 22.2 Seconds (25.1-36.5) L 07/28/17 15:20 - Constitutional Appears: Well, No Acute Distress - Eye Exam Eye Exam: Normal appearance. absent: Scleral icterus - ENT Exam ENT Exam: Mucous Membranes Moist - Respiratory Exam Respiratory Exam: Clear to Ausculation Bilateral. absent: Respiratory Distress - Cardiovascular Exam Cardiovascular Exam: REGULAR RHYTHM, +S1, +S2 - GI/Abdominal Exam GI & Abdominal Exam: Soft. absent: Distended, Tenderness - Extremities Exam Additional comments: no leg edema - Neurological Exam Neurological Exam: Alert, Awake - Psychiatric Exam Psychiatric exam: Normal Affect, Normal Mood. absent: Agitated - Skin Skin Exam: Warm. absent: Cyanosis Assessment and Plan (1) DEANNA (acute kidney injury) Assessment & Plan: Continuing gentle IVF w/ NS at 60 cc/hr till patient can resume regular diet; Status: Resolved (2) HTN (hypertension) Assessment & Plan: BP controlled; home BP meds unclear, will confirm with daughter; continue to hold lisinopril; continue amlodipine 5 mg daily; Status: Chronic (3) Anemia Assessment & Plan: Hgb stable; iron deficient with stool pos for occult blood; starting IV iron; should consider outpatient GI eval for repeat endscopic eval (history of duodenal ulcers seen last year); Status: Acute
--- NOTE | 2017-07-31 23:16 | PN ---
DATE: 07/31/2017 PULMONARY PROGRESS NOTE REFERRING PHYSICIAN: Hannah Ramirez MD. SUBJECTIVE: He is lying in the bed at 45 degrees. Feels better. Not much short of breath. Mild cough. No nausea. Abdominal pain is better, having bowel movement. No leg pain or leg swelling. OBJECTIVE: GENERAL: In no acute distress. VITAL SIGNS: Temperature is 98, heart rate is 88, respiratory rate is 20, blood pressure 128/74, pulse ox of 99% on room air. HEENT: Moist mucous membrane. No ulcer or thrush noted. NECK: Supple. No JVD. LUNGS: Have a fair airflow with rhonchi. HEART: S1 and S2. ABDOMEN: Positive bowel sounds. Soft, nontender. EXTREMITIES: There is no edema. NEUROLOGIC: Awake and alert. Follows simple command. MEDICATIONS: He is on Bactroban ointment twice a day, clonidine 1 patch weekly, vitamin D 50,000 units weekly, Dulcolax 10 mg rectally twice a day, albuterol/Atrovent nebulizer q. 6 hours, iron sucrose 100 mg IV daily, Levaquin 250 mg daily, Lipitor 20 mg daily, meropenem 1 g IV q. 12 hours, MiraLax 17 g p.o. twice a day. He is on vitamin, iron, folic acid 1 capsule daily; Norvasc 5 mg daily; omega-3 at 500 mg twice a day, Pepcid 20 mg daily, ranitidine 150 mg daily, IV fluid normal saline 60 mL/hour, Synthroid 25 mcg daily, Ultram 50 mg q. 6 hours p.r.n., Zestril 10 mg daily. LABORATORY DATA: Shows hemoglobin 9.2, hematocrit 27.1, WBC 5.1, platelet count is 244. Sodium 134, potassium 3.4, chloride 101, bicarbonate 26, BUN 11, creatinine 0.9, glucose 110, calcium 8.9, iron is 25, ferritin is 60, AST 25, ALT 41, alk phos is 37, albumin is 2.6, vitamin B12 of 707, folate more than 20. Microbiology: Blood culture, urine culture and nose culture, there is no growth. IMPRESSION AND PLAN: Bowel obstruction with constipation, doing much better, having multiple bowel movement and feels better, coronary artery disease, hypertension, hyperlipidemia, chronic lung disease, may have sleep apnea syndrome, basilar atelectasis versus infiltrate. Pulmonary point of view, doing okay. Keep head at 45 degrees. Antibiotics, incentive spirometer, out of bed to chair, physical therapy. Follow up electrolytes in the morning. Thank you and we will follow with you. Dakotah Farrar MD
[2017-08-01] MEDS: Albuterol-Ipratrop 3 mg / 0.5 (3 ml) UD IH SCH ×3 (02:35→13:31)
--- NOTE | 2017-08-01 03:05 | PN ---
DATE: 07/31/2017 SUBJECTIVE: The patient is seen earlier this morning in ICU. Awake and alert, doing much better. PHYSICAL EXAMINATION: VITAL SIGNS: Temperature is down to 98, blood pressure is 120/70, respiratory rate is 16. HEENT: Unremarkable. NECK: Supple. LUNGS: Decreased breath sounds. HEART: Normal S1 and S2. ABDOMEN: Soft. LABORATORY DATA: Reveals a white count of 5.1, hemoglobin of 9, platelets of 244. Chemistries reveal a BUN of 11, creatinine of 0.9, and procalcitonin is 1.66. Urinalysis is noted. Urine for legionella antigen is negative. Blood cultures, no growth. Urine cultures, no growth. MRSA nasal screening is positive. Review of orders reveals the patient to be on Levaquin and meropenem. ASSESSMENT AND PLAN: This is a 81-year-old male, early this morning with a history of coronary artery disease, hypertension, hyperlipidemia, chronic obstructive lung disease, colon surgery, colon resection and mesh. On this admission, the patient was admitted with nausea, vomiting, dizziness with severe sepsis with small bowel obstruction and acute kidney injury, questionable left acquired pneumonia on meropenem and Levaquin, elevated procalcitonin. CAT scan is reviewed. Dr. Barrera's progress note is reviewed. Dr. Fletcher's progress note is reviewed. The patient's renal function is now completely resolved with creatinine down 0.9. We will discontinue the meropenem and switch the Levaquin to p.o. to complete therapy at 500 mg once daily for 4 more days. Jonathan Woods MD
[2017-08-01] MEDS: Levothyroxine 25 MCG TAB PO SCH (06:08)
[2017-08-01 07:05] LABS: HEMOGLOBIN 9.3 g/dL (14.0-18.0); MEAN CELL VOLUME 92.9 fl (80.0-105.0); MEAN CORPUSCULAR HEMOGLOBIN 31.4 pg (25.0-35.0); MEAN CORPUSCULAR HGB CONC 33.8 g/dl (31.0-37.0); MEAN PLATELET VOLUME 9.1 fl (7.0-11.0); RBC 2.96 10^6/uL (3.5-6.1); WHITE BLOOD COUNT 6.1 10^3/ul (4.5-11.0)
[2017-08-01 07:54] LABS: ALBUMIN 2.6 g/dL (3.0-4.8); ALT/SGPT 32 U/L (7-56); AST/SGOT 34 U/L (17-59); BLOOD UREA NITROGEN 11 mg/dL (7-21); CALCIUM 8.4 mg/dL (8.4-10.5); GFR AFRICAN-AMERICAN > 60; GFR NON-AFRICAN AMERICAN > 60
[2017-08-01 07:59] VITALS: BP 136/59; PULSE 82; RESP 18; TEMP 99; O2SAT 98
--- NOTE | 2017-08-01 08:43 | PN ---
DATE: 07/30/2017 SUBJECTIVE: Patient is a 81-year-old male. Patient was seen and examined on the bedside on 07/30/2017, lying comfortable. No nausea, vomiting, diarrhea. No episode happened overnight, had multiple bowel movements, getting stool softener. Diet could be advanced. Discussion done with Dr. Miller. Cough is better. No hematuria, hematochezia. PHYSICAL EXAMINATION VITAL SIGNS: Temperature 98.1, heart rate 90, respiratory rate 18 and blood pressure 120/70. HEENT: Head is normocephalic, atraumatic. Eyes: PERRLA. Extraocular muscles are intact. Conjunctivae clear. Nose patent. NECK: Supple. No carotid bruit. No JVD or thyromegaly. CHEST: Bilaterally symmetrical. HEART: S1 and S2 positive. LUNGS: Clear to auscultation. ABDOMEN: Soft. Bowel sounds present. No organomegaly. EXTREMITIES: No edema. No cyanosis. NEUROLOGIC: The patient is awake and alert. Moving all four extremities. No focal deficits. MEDICATIONS: Clonidine, vitamin D, Dulcolax, Levaquin, Lipitor, meropenem, MiraLax, multivitamins, Norvasc, Pepcid, ranitidine, NS, Synthroid, tramadol, Zestril. LABORATORY DATA: Hemoglobin 9.7, hematocrit 29.2, white blood cells 5.2, platelets 221,000. BUN 25, creatinine 1.0, AST 58, ALT 46. Stool occult is positive. ASSESSMENT AND PLAN: Mr. Gabriela Page came with bowel obstruction and with constipation, getting Dulcolax and enemas, improving. GI is on the case, surgeon is on the case also. Coronary artery disease, hypertension, hypercholesterolemia, chronic obstructive pulmonary disease, sleep apnea syndrome, lung infiltrates. Prolactin is positive. Infectious Disease and Pulmonary is on the case. Continue bronchodilators. Transfer the patient out of the unit. I saw the patient in the unit. Heat Treater Apprentice is on the case. After enema, the patient had multiple bowel movements. Acute kidney injury, looks like prerenal. Continue gentle IV hydration as per lumber stacker operator. Hypertension, the patient is getting amlodipine. Holding lisinopril. Marked drop in the hemoglobin, anemia, currently stable. Stool positive for occult blood, getting iron studies. Gastrointestinal is on the case. Discussion done with Dr. Miller. Repeat labs. Out of bed. Physical therapy. We will . Hannah Ramirez MD [facility]
[2017-08-01] MEDS: RANITIDINE HCL 150 MG PO SCH (09:54)
[2017-08-01] MEDS: POLYETHYLENE GLYCOL 3350 17 GM/Dose PACKET PO SCH ×2 (09:55→17:29)
[2017-08-01] MEDS: Non Formulary Medication (Omega-3-Acid Ethyl Esters [Omega 3] 500 MG) PO SCH ×2 (09:56→17:31)
[2017-08-01] MEDS: MULTIVIT IRON MIN PO SCH (09:56)
[2017-08-01] MEDS: [UNRECOGNIZED DRUG - OTHER] PO SCH (09:56)
[2017-08-01] MEDS: FOLIC ACID PO SCH (09:56)
[2017-08-01] MEDS ORDERED: levoFLOXacin 500 MG TAB PO SCH (10:00)
[2017-08-01] MEDS ORDERED: Ergocalciferol 50,000 Intl Units Cap PO SCH (10:00)
--- NOTE | 2017-08-01 11:19 | PN ---
DATE: 07/31/2017 SUBJECTIVE: The patient is a 81-year-old male. The patient was seen and examined on 07/31/2017. Looking comfortable. No nausea or vomiting. Has diarrhea. Mild cough. Abdominal pain is better. No swelling of the leg. No fever. No chills. No headache. No dizziness. PHYSICAL EXAMINATION: VITAL SIGNS: Temperature 98.1, heart rate 80, respiratory rate 18, blood pressure 120/74. HEENT: Head normocephalic, atraumatic. Eyes PERRLA. Extraocular muscles intact. Conjunctivae clear. Nose patent. Mucous membrane moist. NECK: Supple. No carotid bruit. No JVD or thyromegaly. CHEST: Bilaterally symmetrical. LUNGS: Have fair airflow with rhonchi. HEART: S1 and S2 positive. ABDOMEN: Bowel sounds positive, soft, nontender. No organomegaly. EXTREMITIES: No edema. No cyanosis. NEUROLOGICAL: The patient is awake and alert. Follows simple commands. LABORATORY DATA: Hemoglobin 9.2, hematocrit 27.1, white blood cells 5.1, platelets 244. Sodium 134, potassium 3.4, BUN 11, creatinine 0.9, glucose 110, AST 25, ALT 41. MEDICATIONS: Bactroban, clonidine, vitamin D, Dulcolax, albuterol, Levaquin, Lipitor, meropenem, MiraLax, folic acid, Norvasc, omega 3, Pepcid, IV fluid, Synthroid, tramadol, Zestril. ASSESSMENT AND PLAN: Mr. Gabriela Page, a 81-year-old male with multiple medical problems, came with bowel resection with constipation, had a couple of bowel movements, doing much better, had multiple times stool softener, enemas. History of hypertension, hypercholesterolemia, chronic lung disease, sleep apnea syndrome, bilateral basal atelectasis versus infiltrates. Antibiotics, incentive spirometry, gastrointestinal and deep venous thrombosis prophylaxis, out of bed to the chair. We will follow up. Hannah Ramirez MD
--- NOTE | 2017-08-01 15:49 | PN ---
DATE: 07/31/2017 SUBJECTIVE: The patient was seen and examined on 07/31/2017. had bowel movement and positive bout of shortness of breath. His nausea or vomiting. No abdominal pain. No swelling of the leg. No fever. No chills. PHYSICAL EXAMINATION: GENERAL: In no acute distress. VITAL SIGNS: Temperature 98.1, heart rate 88, respiratory rate 20, blood pressure 120/80 , and pulse oximetry 99% on room air. HEENT: Head: Normocephalic, atraumatic. Eyes: PERRLA. Extraocular movements intact. Conjunctivae clear. Nose patent. Mucous membranes are moist. NECK: Supple. No carotid bruits, JVD, or thyromegaly. CHEST: Bilaterally symmetrical. HEART: S1 and S2 positive. LUNGS: Clear to auscultation. ABDOMEN: Soft. Bowel sounds are present. No organomegaly. EXTREMITIES: No edema. No cyanosis. NEUROLOGIC: Awake and alert. Moving all four extremities with no focal deficit. MEDICATIONS: Bactroban, clonidine, vitamin D, Dulcolax, Levaquin, Lipitor, meropenem, MiraLax, Norvasc, Pepcid, noted LABORATORY DATA: Hemoglobin 9.2, hematocrit 27.1, white blood cells 5.1, and platelets 244. Sodium 134, potassium 3.4, BUN 11, and creatinine 0.9. ASSESSMENT AND PLAN: came with bowel obstruction with constipation and obstipation. The patient was multiple enemas and stool softeners, now having multiple bowel movements coronary artery disease, hypertension, hypercholesterolemia, chronic kidney disease, sleep apnea syndrome, right basilar atelectasis, Haldol, Lipitor. Antibiotics and bed to chair. Physical therapy. Repeat labs. We will follow. Hannah Ramirez MD [facility]
--- NOTE | 2017-08-01 23:06 | PN ---
DATE: 08/01/2017 REFERRING PHYSICIAN: Hannah Ramirez MD SUBJECTIVE: He is lying in the bed, head at 45 degrees. Feels weak and tired. Short of breath with exertion, but no cough. Abdominal pain is not there. Still having watery stool. No leg swelling. OBJECTIVE: GENERAL: In no acute distress. VITAL SIGNS: Temp is 99, heart rate is 82, respiratory rate is 18, blood pressure 136/59, pulse ox 98% on room air. HEENT: Moist mucous membranes. No ulcer or thrush noted. NECK: Supple. No JVD. LUNGS: Have fair airflow with rhonchi. HEART: S1, S2. ABDOMEN: Positive bowel sounds, soft on palpation. EXTREMITIES: There is no edema. NEUROLOGIC: Awake, alert. Follows simple commands. MEDICATIONS: He is on Bactroban ointment to affected area twice a day, vitamin D 50,000 units weekly, Dulcolax 10 mg rectally twice a day, DuoNeb q.6 hours, iron sucrose IV daily, Levaquin 500 mg daily, Lipitor 20 mg daily, MiraLax 17 g twice a day, multivitamins, Norvasc 5 mg daily, omega-3 at 500 mg twice a day, Pepcid 20 mg daily, ranitidine 150 mg daily, Synthroid 25 mcg daily, Ultram on p.r.n. basis, Zestril 10 mg daily. LABORATORY DATA: Shows hemoglobin 9.3, hematocrit 27.5, WBC 6.1, platelet count is 257. Sodium 136, potassium 4.2, chloride 102, bicarbonate 27, BUN 11, creatinine 0.8, calcium is 8.4. AST 34, ALT 32, alk phos is 38, albumin is 2.6. Vitamin B12 more than 707. Folate more than 20. Stool occult blood had been positive. Microbiology: Blood culture, urine culture, MRSA screen is negative. IMPRESSION AND PLAN: Bowel obstruction with constipation, presently doing better with multiple bowel movements, coronary artery disease, hypertension, hyperlipidemia, chronic lung disease, may have sleep apnea syndrome, basilar atelectasis, activities of daily living dysfunction. From a Pulmonary point of view, doing okay. I spoke to nursing staff, requested to get him out of bed to chair. Fall precaution. Follow up electrolyte in the morning. Encourage p.o. intake. Thank you, and we will follow with you. Dakotah Farrar MD
--- NOTE | 2017-08-01 23:16 | CP.PCM.PN ---
Subjective - Date & Time of Evaluation Date of Evaluation: 08/01/17 Time of Evaluation: 11:00 - Subjective Subjective: Reports tolerating diet; out of bed into chair today; Objective - Vital Signs/Intake and Output Vital Signs (last 24 hours): Temp Pulse Resp BP Pulse Ox 99 F 82 18 136/59 L 98 08/01/17 07:58 08/01/17 09:55 08/01/17 07:58 08/01/17 09:55 08/01/17 07:58 Intake and Output: 08/01/17 08/02/17 18:59 06:59 Intake Total 660 Output Total 600 Balance 60 - Labs Labs: 08/01/17 06:45 08/01/17 06:45 PT 11.5 SECONDS (9.4-12.5) 07/28/17 15:20 INR 1.01 (0.93-1.08) 07/28/17 15:20 APTT 22.2 Seconds (25.1-36.5) L 07/28/17 15:20 - Constitutional Appears: Non-toxic, No Acute Distress - Eye Exam Eye Exam: absent: Scleral icterus - ENT Exam ENT Exam: Mucous Membranes Moist - Respiratory Exam Respiratory Exam: Clear to Ausculation Bilateral. absent: Respiratory Distress - Cardiovascular Exam Cardiovascular Exam: RRR, +S1, +S2 - GI/Abdominal Exam GI & Abdominal Exam: Soft. absent: Distended, Tenderness - Exam Exam: absent: Bladder Distension - Extremities Exam Additional comments: no leg edema; - Neurological Exam Neurological Exam: Alert, Awake - Psychiatric Exam Psychiatric exam: Normal Affect, Normal Mood. absent: Agitated - Skin Skin Exam: Warm. absent: Cyanosis Assessment and Plan (1) HTN (hypertension) Assessment & Plan: BP controlled on amlodipine, continue; Status: Chronic (2) Anemia Assessment & Plan: Hgb stable, continue IV iron loading; Status: Acute
--- NOTE | 2017-08-02 00:28 | PN ---
DATE: 08/01/2017 SUBJECTIVE: The patient is seen earlier this morning in room 564, bed 1. No fevers, no chills, doing well. PHYSICAL EXAMINATION: VITAL SIGNS: Temperature is 99, blood pressure is 130/60, respiratory rate is 16. HEENT: Unremarkable. NECK: Supple. LUNGS: Decreased breath sounds. HEART: Normal S1 and S2. ABDOMEN: Soft. LABORATORY DATA: Reveals a white count of 6.1, hemoglobin of 9, BUN of 11, creatinine of 0.8, and procalcitonin is 1.66. Microbiology is noted. ASSESSMENT AND PLAN: This is a 81-year-old male, with history of coronary artery disease, hypertension, hyperlipidemia, chronic obstructive lung disease, colon surgery, colon resection and mesh. On this admission, the patient was admitted with nausea and vomiting, dizziness, and found to have severe sepsis with small bowel obstruction, acute kidney injury, questionable left acquired pneumonia treated with meropenem and Levaquin, and elevated procalcitonin. The patient is completing therapy with p.o. antibiotics. Follow up with PMD. Jonathan Woods MD
== END 2017-08-01 18:38 | DRG 871 ==
LOC: ED 12:54 → ERH 16:55 → ICU 20:59 → 5RNO 07-31 12:43
PROVIDERS: ADMIT Internal Medicine; ATTEND Internal Medicine
PROC: 30233N1 Transfusion of Nonautologous Red Blood Cells into Peripheral Vein, Percutaneous Approach (ICD-10-PCS; principal; 2017-07-28)
DX: A41.9 Sepsis, unspecified organism (principal); J18.9 Pneumonia, unspecified organism; N17.9 Acute kidney failure, unspecified; K56.600 Partial intestinal obstruction, unspecified as to cause; K62.5 Hemorrhage of anus and rectum; E87.2 Acidosis; J98.11 Atelectasis; R64 Cachexia; Z68.1 Body mass index [BMI] 19.9 or less, adult; J44.0 Chronic obstructive pulmonary disease with (acute) lower respiratory infection; R65.20 Severe sepsis without septic shock; D64.9 Anemia, unspecified; E86.0 Dehydration; I25.10 Atherosclerotic heart disease of native coronary artery without angina pectoris; E87.5 Hyperkalemia; E11.22 Type 2 diabetes mellitus with diabetic chronic kidney disease; K56.41 Fecal impaction; I12.9 Hypertensive chronic kidney disease with stage 1 through stage 4 chronic kidney disease, or unspecified chronic kidney disease; N18.9 Chronic kidney disease, unspecified; K57.30 Diverticulosis of large intestine without perforation or abscess without bleeding; G47.30 Sleep apnea, unspecified; E03.9 Hypothyroidism, unspecified; E78.00 Pure hypercholesterolemia, unspecified; Z90.49 Acquired absence of other specified parts of digestive tract; Z95.5 Presence of coronary angioplasty implant and graft

== ENCOUNTER 2017-08-01 18:09 | Inpatient (IN) | payer OTHER, MEDICAID ==
[2017-08-01 19:02] VITALS: BMI 17.8
[2017-08-01] MEDS: Albuterol-Ipratrop 3 mg / 0.5 (3 ml) UD IH SCH (21:32)
[2017-08-01] MEDS: Sodium Chloride 0.9% 1,000 ML IV SCH (22:00)
[2017-08-02] MEDS: Albuterol-Ipratrop 3 mg / 0.5 (3 ml) UD IH SCH ×4 (01:45→21:34)
[2017-08-02] MEDS: Levothyroxine 25 MCG TAB PO SCH (05:37)
[2017-08-02] MEDS ORDERED: OMEGA PO SCH (10:00)
[2017-08-02] MEDS ORDERED: Home Med 1 UNIT PO SCH ×2 (10:00)
[2017-08-02] MEDS: POLYETHYLENE GLYCOL 3350 17 GM/Dose PACKET PO SCH ×2 (10:21→17:08)
[2017-08-02] MEDS: levoFLOXacin 500 MG TAB PO SCH (10:44)
[2017-08-02] MEDS: [UNRECOGNIZED DRUG - OTHER] PO SCH (10:45)
[2017-08-02] MEDS: Sodium Chloride 0.9% 1,000 ML IV SCH (13:53)
--- NOTE | 2017-08-03 02:53 | CON ---
DATE: 08/02/2017 PULMONARY CONSULT REFERRING PHYSICIAN: Hannah Ramirez MD. REASON FOR CONSULT: Chronic lung disease, short of breath with exertion. HISTORY OF PRESENT ILLNESS: This is a 81-year-old gentleman, well known to me from previous admission and most recent admission to Intensive Care Unit, history of chronic lung disease, hypertension, diabetes, coronary artery disease, may have sleep apnea syndrome, has a history of left inguinal hernia, which was repaired, has a mesh placed in. At one point, his mesh was infected ended up with laparotomy with resection of small bowel and removal of mesh, since then having frequent constipation, ileus and obstruction, so he comes into emergency room with the same symptom with severely constipated, electrolyte imbalance and hypotension. Seen by GI, received mineral oil enemas, stool softener, GI stimulant with finally good result, has started having bowel movement. Presently, feels very weak, ADL dysfunction, back pain. At TICU for continued care. Gets short of breath with minimal exertion. Never had a sleep study done. Denying any chest pain. PAST MEDICAL HISTORY: As per history of present illness. SOCIAL HISTORY: Nonsmoker, nondrinker. ALLERGIES: NONE KNOWN. FAMILY HISTORY: No significant cardiopulmonary diseases are reported. MEDICATIONS: He is on Bactroban to affected area, vitamin D 50,000 units q. 7 days, Dulcolax rectally twice a day, DuoNeb q. 6 hours, iron sucrose IV, Levaquin 500 mg daily, Lipitor 20 mg daily, MiraLax 17 g twice a day, Norvasc 5 mg daily, Pepcid 20 mg daily, IV fluid normal saline 60 mL/hour, Synthroid 25 mcg daily, Ultram 50 mg q. 6 hours, Zestril 10 mg daily. REVIEW OF SYSTEMS: No headache. No rhinitis. Gets short of breath. No chest pain. Mild epigastric discomfort. Had a dark watery stool. No leg pain. No leg swelling. PHYSICAL EXAMINATION: GENERAL: Sitting up in a chair. VITAL SIGNS: Temp is 98, heart rate is 86, respiratory rate is 18, blood pressure 103/54, pulse ox 98% on room air. HEENT: Small oral cavity. Crowded airway. NECK: Supple. No JVD. LUNGS: Have a few scattered rhonchi. HEART: S1 and S2. ABDOMEN: Mildly distended. Mild epigastric pain. EXTREMITIES: There is no edema. NEUROLOGIC: Awake, alert. Follows simple command. IMPRESSION AND PLAN: Bowel obstruction, status post multiple modality used for small bowel obstruction, presently having bowel movements; coronary artery disease; hypertension; hyperlipidemia; chronic lung disease; may have sleep apnea syndrome; basal atelectasis; activities of daily living dysfunction. Spoke to therapist. Pulmonary status stable to start therapy. Bronchodilator. Continue stool softener and gastrointestinal stimulant. Follow up electrolytes. Fall precaution. Thank you and we will follow with you. Dakotah Farrar MD
--- NOTE | 2017-08-03 03:39 | CON ---
DATE: 08/02/2017 LOCATION: Patient is in bed, in room 318. Patient was seen earlier this morning. CHIEF COMPLAINT: Weakness for several days. HISTORY OF PRESENT ILLNESS: This is a 81-year-old male with history of coronary artery disease, hypertension, hyperlipidemia, chronic obstructive lung disease with history of colon resection, had a mesh in the past, left inguinal abscess by history, he had incision and drainage of left inguinal abscess, was admitted. Patient also had mesh removed in the past and also has cardiac stent placement in the past. Patient was admitted with nausea, vomiting, dizziness, found to have severe sepsis with small bowel obstruction and acute kidney injury and questionable left pneumonia, probable bacterial because of an elevated procalcitonin and his acute renal function resolved and patient was switched to p.o. Levaquin and now has 2 more days of p.o. Levaquin to complete therapy. REVIEW OF SYSTEMS: Reveals no fever, no chills. No nausea, vomiting. No chest pain or abdominal pain. He is doing well. PAST MEDICAL HISTORY: Significant for coronary artery disease, hypertension, hyperlipidemia, chronic obstructive lung disease, history of left inguinal abscess. PAST SURGICAL HISTORY: History of colon resection; patient had a mesh placement, which was removed; incision and drainage of the left inguinal abscess. Patient also had a cardiac cath with stent placement. ALLERGIES: PATIENT HAS NO KNOWN ALLERGIES. MEDICATIONS: Reviewed. PHYSICAL EXAMINATION: VITAL SIGNS: Temperature is 98, blood pressure is 120/70, respiratory rate 16. HEENT: Unremarkable. NECK: Supple. LUNGS: Decreased breath sounds. HEART: Normal S1 and S2. ABDOMEN: Soft. LABORATORY DATA: Reveals white count of 6.1, hemoglobin 9. BUN of 11, creatinine of 0.8. ASSESSMENT AND PLAN: This is a 81-year-old male with history of coronary artery disease, hypertension,hyperlipidemia, chronic obstructive lung disease and colon surgery in the past by history of recent colon resection and mesh. On this admission, admitted with severe sepsis, small bowel obstruction, acute kidney injury and community-acquired pneumonia. Now completing therapy in Transitional Care with p.o. Levaquin and patient has 2 more days of p.o. Levaquin and complete therapy and also with physical therapy. Jonathan Woods MD
[2017-08-03] MEDS: Levothyroxine 25 MCG TAB PO SCH (05:35)
[2017-08-03] MEDS: Sodium Chloride 0.9% 1,000 ML IV SCH (05:35)
[2017-08-03 07:06] LABS: HEMOGLOBIN 9.8 g/dL (14.0-18.0); MEAN CELL VOLUME 94.6 fl (80.0-105.0); MEAN CORPUSCULAR HEMOGLOBIN 31.4 pg (25.0-35.0); MEAN CORPUSCULAR HGB CONC 33.2 g/dl (31.0-37.0); MEAN PLATELET VOLUME 9.4 fl (7.0-11.0); RBC 3.12 10^6/uL (3.5-6.1); RED CELL DISTRIBUTION WIDTH 14.4 % (11.5-14.5); WHITE BLOOD COUNT 9.1 10^3/ul (4.5-11.0)
[2017-08-03 07:27] LABS: ALB/GLOB RATIO 0.9 (1.1-1.8); ALBUMIN 2.7 g/dL (3.0-4.8); ALT/SGPT 37 U/L (7-56); AST/SGOT 31 U/L (17-59); BLOOD UREA NITROGEN 14 mg/dL (7-21); CALCIUM 8.4 mg/dL (8.4-10.5); GFR AFRICAN-AMERICAN > 60; GFR NON-AFRICAN AMERICAN > 60
[2017-08-03] MEDS: Albuterol-Ipratrop 3 mg / 0.5 (3 ml) UD IH SCH ×3 (07:42→21:09)
--- NOTE | 2017-08-03 08:44 | HP ---
CHIEF COMPLAINTS: Fatigue, tired, weak, headache, dizziness. HISTORY OF PRESENT ILLNESS: Mr. Gabriela Page is a 81-year-old male with past medical history of multiple medical problems, arthritis, coronary artery disease, status post 2 cardiac stenting, hypertension, hypercholesterolemia, history of infected mesh and it was removed by the surgeon, improved. Now, the patient came back with nausea, vomiting. Due to his poor p.o. intake, he looks dehydrated. The patient reported he felt dizzy and fell 3 times, admitting that he hit his head once. The patient denies any loss of consciousness. We admitted the patient in the unit. Stool softener, enemas given. The patient has bowel movement. Medications given. CAT scan of the abdomen and pelvis done. CAT scan of the head was done, improved, now sent to TCU for deconditioning and rehab on 08/01/2017. PAST MEDICAL HISTORY: As above, hypertension, cataract surgery, diabetes mellitus type 2, hypothyroidism, skin discoloration, hiatal hernia, GI bleeding, coronary stents, left inguinal hernia with mesh, abscess removed. FAMILY HISTORY: Father, mother noncontributory. HABITS: Never smoked. No drugs. No ethanol. ALLERGIES: THE PATIENT IS NOT ALLERGIC WITH ANY MEDICATION. HOME MEDICATIONS: Reviewed by me. REVIEW OF SYSTEMS: The patient is seen and examined on the bedside, having private room. Feeling better. No nausea, vomiting, diarrhea. No hematuria. No hematochezia. No swelling of the leg. No chest pain. No palpitation. No headache. No dizziness. PHYSICAL EXAMINATION: VITAL SIGNS: Temperature 98.3, pulse 86, blood pressure 103/54, respiratory rate 18. HEENT: Head normocephalic, atraumatic. Eyes PERRLA. Extraocular muscles are intact. Conjunctivae clear. Nose patent. Mucous membrane moist. NECK: Supple. No carotid bruit. No JVD or thyromegaly. CHEST: Bilaterally symmetrical. HEART: S1 and S2 positive. LUNGS: Clear to auscultation. ABDOMEN: Soft. Bowel sounds positive. No organomegaly. EXTREMITIES: No edema. No cyanosis. NEUROLOGICAL: The patient is awake and alert. Moving all 4 extremities. No focal deficits. MEDICATIONS: Bactroban ointment, Dulcolax, DuoNeb, Levofloxacin, Lipitor, MiraLax, Norvasc, Pepcid, NS, Zestril. LABORATORY DATA: We do not have recent lab today, but I reviewed all labs. ASSESSMENT AND PLAN: Mr. Gabriela Page, a 81-year-old male with multiple medical problems, history of hypertension, diabetes mellitus, coronary artery disease, diverticulosis, obstructive sleep apnea syndrome, came in with bowel obstruction, constipation, hypercholesterolemia, bibasilar atelectasis. Gave enemas and stool softener, finally he did the bowel movement. Replace the thyroid therapy. IV fluids, antibiotics. Spoke to the patient's family on the bedside a couple of times. All questions were answered. Gastrointestinal and deep venous thrombosis prophylaxis. Repeat labs. We will follow up. Hannah Ramirez MD
[2017-08-03] MEDS: levoFLOXacin 500 MG TAB PO SCH (10:39)
[2017-08-03] MEDS: POLYETHYLENE GLYCOL 3350 17 GM/Dose PACKET PO SCH ×2 (10:39→18:02)
[2017-08-03] MEDS: [UNRECOGNIZED DRUG - OTHER] PO SCH (10:46)
[2017-08-03] MEDS ORDERED: Omega-3-Acid Ethyl Esters 1 GM Cap PO ONE (14:15)
--- NOTE | 2017-08-03 17:56 | PN ---
DATE: 08/03/2017 SUBJECTIVE: Patient is seen early this morning in room 318. No fevers and no chills. PHYSICAL EXAMINATION: VITAL SIGNS: Temperature is 97, blood pressure is 120/70, respiratory rate of 18. HEENT: Unremarkable. NECK: Supple. LUNGS: Have decreased breath sounds. HEART: Normal S1, S2. ABDOMEN: Soft, nontender. LABORATORY EXAMINATION: Is reviewed. ASSESSMENT AND PLAN: This is a 81-year-old male with history of coronary artery disease, hypertension, hyperlipidemia, chronic obstructive lung disease, colon surgery in the past, recent colon resection and mesh, admitted to the acute care with severe sepsis with small bowel obstruction, acute kidney injury, community-acquired pneumonia, had completed therapy intravenously, currently on only p.o. Levaquin. Patient needs another 1 to 2 days of p.o. Levaquin to complete therapy. He is doing well. Case is discussed with Dr. Ramirez earlier. Jonathan Woods MD
--- NOTE | 2017-08-03 22:05 | PN ---
DATE: 08/03/2017 REFERRING PHYSICIAN: Hannah Ramirez MD SUBJECTIVE: He is lying in the bed at 45 degrees. Night was unremarkable. Feels better, had a bowel movement yesterday. Short of breath with exertion. Did participate in therapy this morning. PHYSICAL EXAMINATION: GENERAL: In no distress. VITAL SIGNS: Temperature is 99, heart rate is 97, respiratory rate is 20, blood pressure 118/56, pulse ox of 97% on room air. HEENT: Moist mucous membranes. Small oral cavity. NECK: Supple. No JVD. LUNGS: Have a fair airflow with rhonchi. HEART: S1 and S2. ABDOMEN: Soft, nontender, nondistended. EXTREMITIES: No edema. NEUROLOGIC: Awake, alert, and follows simple command. MEDICATIONS: He is on Bactroban ointment to affected area twice a day, vitamin D 50,000 units every 7 days, Dulcolax 10 mg rectally twice a day, DuoNeb q.6 h., iron sucrose IV which is not given today, Levaquin 500 mg daily, Lipitor 20 mg daily, Lovaza 1 g daily, MiraLax 17 g twice a day, Norvasc 5 mg daily, Pepcid 20 mg at bedtime, Synthroid 25 mcg daily, and Ultram 50 mg q.6h. p.r.n. LABORATORY DATA: Shows hemoglobin 9.8, hematocrit 29.5, WBC 9.1, platelet count is 339. Sodium 134, potassium 4.1, chloride 101, bicarbonate 25, BUN 14, creatinine 0.9, glucose 109, calcium 8.4, phosphorus 2.5, total bili 0.3, AST 31, ALT 37, alk phos is 42. Albumin is 2.7. IMPRESSION AND PLAN: Recurrent bowel obstruction, history of laparotomy with hemicolectomy secondary to adhesions, coronary artery disease, hypertension, hyperlipidemia, chronic lung disease, may have sleep apnea syndrome, basilar atelectasis. Pulmonary point of view doing well. Continue bronchodilator, keep at 45 degrees. Gastric prophylaxis, deep vein thrombosis prophylaxis, stool softener, and fall precaution. Thank you and we will follow with you. Dakotah Farrar MD [facility] # [id number]
--- NOTE | 2017-08-03 22:46 | CON ---
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 The patient was treated for severe sepsis from community-acquired pneumonia as well as partial small bowel obstruction; responded well to volume repletion and was transfused 1 unit PRBC; the patient was kept on IV fluids with renal function improving progressively; the patient is subsequently discharged to TCU for physical therapy and rehab; the patient overall reports feeling well, is tolerating regular diet. Denies any nausea, vomiting; is ambulating with physical therapy. Denies any dizziness. PAST MEDICAL HISTORY: As above. SOCIAL HISTORY: Never smoked. FAMILY HISTORY: Parents . REVIEW OF SYSTEMS: CONSTITUTIONAL: As per HPI. HEENT: Denies any sore throat, runny nose. RESPIRATORY: Denies any shortness of breath or cough. CARDIOVASCULAR: Denies any recent palpitations. Does report intermittent lower chest/epigastric pain, but not currently; not related to exertion. GI: No nausea or vomiting. : Urinating well. No difficulty. MUSCULOSKELETAL: Denies any arthralgias or other aches or pains. SKIN: No itching or rashes lately. NEURO: No dizziness or headaches. PHYSICAL EXAMINATION: VITAL SIGNS: This morning, blood pressure 127/71, heart rate 99. Rest of vitals from yesterday evening, respirations 18, temperature 98.3, O2 sat 98% on room air. GENERAL: No distress. Conversing coherently in full sentences. HEENT: Moist mucous membranes. Nonicteric. RESPIRATORY: Lungs clear to auscultation bilaterally. No rales or rhonchi. No wheezes. CARDIOVASCULAR: Heart sounds S1, S2 normal. No murmurs, no gallops, no rubs. GI: Abdomen is soft, nontender, nondistended. : No bladder distention. EXTREMITIES: No leg edema. PSYCHIATRIC : Normal mood, normal affect. SKIN: Warm. No cyanosis. LABORATORY DATA: This morning, CBC, WBC 9.1, hemoglobin 9.8, hematocrit 29.5, platelets 339. Chemistry panel, sodium 134, potassium 4.1, chloride 101, bicarb 25, BUN 14, creatinine 0.9, calcium 8.4, albumin 2.7. ASSESSMENT AND PLAN: 1. Acute kidney injury, resolved, prerenal etiology; we will discontinue IV fluids (running NS at 60 mL/hour); the patient should be able to have adequate p.o. intake to prevent volume depletion at this point. We will follow with repeat labs periodically. 2. Hypertension. Blood pressure has been low with a normal lately with systolic blood pressures in low 100s and diastolics in the 50s; blood pressure improved today; we will reassess with the patient off of IV fluids; continue amlodipine 5 mg daily; holding lisinopril. 3. Anemia with iron deficiency on recent labs. The patient getting IV iron load with Venofer 100 mg daily for a total of 10 doses; the patient needs outpatient GI followup with history of relatively recent duodenal ulcers, which were healed on repeat endoscopy but nevertheless with the patient having had large drop in hemoglobin should have outpatient followup. Thank you for this referral. We will be following closely. Abdulaziz Fletcher MD cc:
[2017-08-04] MEDS: Albuterol-Ipratrop 3 mg / 0.5 (3 ml) UD IH SCH ×5 (03:00→22:04)
--- NOTE | 2017-08-04 04:12 | PN ---
DATE: SUBJECTIVE: The patient is a 81-year-old male. The patient is seen and examined at the bedside, looking comfortable. No nausea, vomiting, or diarrhea. No hematuria or hematochezia. No shortness of breath. No chest pain or palpitation. No fever or chills. Night was unremarkable. Feels better. Has bowel movements. Short of breath is better but still comes on exertion. Did participate in physical therapy. OBJECTIVE: VITAL SIGNS: Temperature is 99, heart rate is 97, respiratory rate 20, blood pressure 118/56, pulse oximetry 97% on room air. HEENT: Head normocephalic, atraumatic. Eyes PERRLA. Extraocular muscles are intact. Conjunctivae clear. Nose patent. Mucous membranes moist. NECK: Supple. No carotid bruit. No JVD or thyromegaly. CHEST: Bilaterally symmetrical. HEART: S1 and S2 positive. LUNGS: Clear to auscultation. ABDOMEN: Soft, Bowel sounds positive. No organomegaly. EXTREMITIES: No edema. No cyanosis. NEUROLOGIC: Patient is awake, alert, moving all four extremities. No focal deficit. MEDICATIONS: He is on Bactroban, vitamin D, Dulcolax, DuoNeb, iron, Levaquin, Lipitor, Lovaza, MiraLax, Norvasc, Pepcid, Synthroid, Ultram. LABORATORY DATA: Hemoglobin 9.8, hematocrit 29.5, white blood cells 9.1, platelets 339. Sodium 134, potassium 4.1, BUN 14, creatinine 0.9. AST 31, ALT 37. ASSESSMENT AND PLAN: Mr. Gabriela Page is a 81-year-old male with recurrent bowel obstruction with history of laparotomy with hemicolectomy secondary to adhesion, coronary artery disease, hypertension, hypercholesterolemia,chronic lung disease, sleep apnea syndrome, bibasilar atelectasis. Continue bronchodilators. Gastric and deep vein thrombosis prophylaxis. Getting physical therapy. We will follow up. Hannah Ramirez MD
[2017-08-04] MEDS: Levothyroxine 25 MCG TAB PO SCH (05:50)
[2017-08-04] MEDS: [UNRECOGNIZED DRUG - OTHER] PO SCH (09:46)
[2017-08-04] MEDS: levoFLOXacin 500 MG TAB PO SCH (09:47)
[2017-08-04] MEDS: Omega-3-Acid Ethyl Esters 1 GM Cap PO SCH (09:48)
[2017-08-04] MEDS: POLYETHYLENE GLYCOL 3350 17 GM/Dose PACKET PO SCH (09:49)
[2017-08-04] MEDS ORDERED: POLYETHYLENE GLYCOL 3350 17 GM/Dose PACKET PO PRN (11:47)
--- NOTE | 2017-08-04 16:23 | CP.PCM.PN ---
Subjective - Date & Time of Evaluation Date of Evaluation: 08/04/17 Time of Evaluation: 11:35 - Subjective Subjective: No fevers, not in distress. Objective - Vital Signs/Intake and Output Vital Signs (last 24 hours): Temp Pulse Resp BP Pulse Ox 99.7 F H 97 H 20 118/56 L 97 08/03/17 18:41 08/03/17 16:00 08/03/17 16:00 08/03/17 16:00 08/03/17 16:00 - Medications Medications: Current Medications Acetaminophen (Tylenol 325mg Tab) 650 mg PO Q4H PRN PRN Reason: pain fever Last Admin: 08/03/17 18:41 Dose: 650 mg Albuterol/Ipratropium (Duoneb 3 Mg/0.5 Mg (3 Ml) Ud) 3 ml IH [id number] ZACK PRN Reason: Protocol Last Admin: 08/04/17 07:27 Dose: 3 ml Amlodipine Besylate (Norvasc) 5 mg PO DAILY [facility] PRN Reason: Protocol Last Admin: 08/03/17 10:39 Dose: 5 mg Atorvastatin Calcium (Lipitor) 20 mg PO DIN [facility]ACK PRN Reason: Protocol Last Admin: 08/03/17 18:01 Dose: 20 mg Bisacodyl (Dulcolax) 10 mg RC BID [facility] PRN Reason: Protocol Last Admin: 08/03/17 18:02 Dose: Not Given Ergocalciferol (Drisdol 50,000 Intl Units Cap) 1 cap PO Q7D [facility]ACK PRN Reason: Protocol Famotidine (Pepcid) 20 mg PO HS [facility]ACK PRN Reason: Protocol Last Admin: 08/03/17 21:24 Dose: 20 mg Home Med (Home Med) 1 unit PO DAILY [facility]ACK Last Admin: 08/03/17 10:46 Dose: Not Given Iron Sucrose 100 mg/ Sodium (Chloride) 105 mls @ 210 mls/hr IVPB 1000 [facility] PRN Reason: Protocol Stop: 08/08/17 10:29 Last Admin: 08/03/17 09:42 Dose: Not Given Levofloxacin (Levaquin) 500 mg PO DAILY [facility] PRN Reason: Protocol Stop: 08/05/17 10:01 Last Admin: 08/03/17 10:39 Dose: 500 mg Levothyroxine Sodium (Synthroid) 25 mcg PO 0600 [facility] PRN Reason: Protocol Last Admin: 08/04/17 05:50 Dose: 25 mcg Mupirocin (Bactroban Ointment) 0 gm TOP BID [facility] PRN Reason: Protocol Last Admin: 08/03/17 18:02 Dose: 1 applic [id number] Ethyl Esters (Lovaza) 1 gm PO DAILY [facility] Polyethylene Glycol (Miralax) 17 gm PO BID [facility]ACK PRN Reason: Protocol Last Admin: 08/03/17 18:02 Dose: 17 gm Tramadol HCl (Ultram) 50 mg PO Q6H PRN; Protocol PRN Reason: Pain, Mild (1-3) Last Admin: 08/02/17 14:47 Dose: 50 mg - Labs Labs: 08/03/17 05:10 08/03/17 05:10 - Constitutional Appears: Chronically Ill - Head Exam Head Exam: NORMAL INSPECTION - Neck Exam Neck Exam: absent: Meningismus - Respiratory Exam Respiratory Exam: Decreased Breath Sounds - Cardiovascular Exam Cardiovascular Exam: +S1, +S2 - GI/Abdominal Exam GI & Abdominal Exam: Soft. 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
[2017-08-04] MEDS ORDERED: Naproxen 550 mg Tab PO SCH (18:00)
--- NOTE | 2017-08-04 22:05 | CP.PCM.PN ---
Subjective - Date & Time of Evaluation Date of Evaluation: 08/04/17 Time of Evaluation: 11:00 - Subjective Subjective: Patient reportedly eating well; no complaints; Objective - Vital Signs/Intake and Output Vital Signs (last 24 hours): Temp Pulse Resp BP Pulse Ox 97.6 F 102 H 18 138/66 97 08/04/17 17:59 08/04/17 17:59 08/04/17 17:59 08/04/17 17:59 08/04/17 17:59 Intake and Output: 08/04/17 08/05/17 18:59 06:59 Intake Total 100 Balance 100 - Medications Medications: Current Medications Acetaminophen (Tylenol 325mg Tab) 650 mg PO Q4H PRN PRN Reason: pain fever Last Admin: 08/03/17 18:41 Dose: 650 mg Albuterol/Ipratropium (Duoneb 3 Mg/0.5 Mg (3 Ml) Ud) 3 ml IH [id number] ZACK PRN Reason: Protocol Last Admin: 08/04/17 13:38 Dose: 3 ml Amlodipine Besylate (Norvasc) 5 mg PO DAILY [facility] PRN Reason: Protocol Last Admin: 08/04/17 09:48 Dose: 5 mg Atorvastatin Calcium (Lipitor) 20 mg PO DIN AZCK PRN Reason: Protocol Last Admin: 08/04/17 19:30 Dose: 20 mg Bisacodyl (Dulcolax) 10 mg RC ONCE PRN PRN Reason: Constipation Ergocalciferol (Drisdol 50,000 Intl Units Cap) 1 cap PO Q7D ZACK PRN Reason: Protocol Famotidine (Pepcid) 20 mg PO 1000,2200 [facility] Last Admin: 08/04/17 21:38 Dose: Not Given Home Med (Home Med) 1 unit PO DAILY [facility] Last Admin: 08/04/17 09:46 Dose: Not Given Iron Sucrose 100 mg/ Sodium (Chloride) 105 mls @ 210 mls/hr IVPB 1000 [facility] PRN Reason: Protocol Stop: 08/08/17 10:29 Last Admin: 08/04/17 09:48 Dose: 210 mls/hr Levofloxacin (Levaquin) 500 mg PO DAILY [facility] PRN Reason: Protocol Stop: 08/05/17 10:01 Last Admin: 08/04/17 09:47 Dose: 500 mg Levothyroxine Sodium (Synthroid) 25 mcg PO 0600 [facility] PRN Reason: Protocol Last Admin: 08/04/17 05:50 Dose: 25 mcg Mupirocin (Bactroban Ointment) 0 gm TOP BID [facility] PRN Reason: Protocol Last Admin: 08/04/17 19:30 Dose: 1 applic Naproxen (Anaprox Ds) 550 mg PO BID [facility] Stop: 08/06/17 11:00 Last Admin: 08/04/17 19:29 Dose: 550 mg [id number] Ethyl Esters (Lovaza) 1 gm PO DAILY [facility] Last Admin: 08/04/17 09:48 Dose: 1 gm Polyethylene Glycol (Miralax) 17 gm PO DAILY PRN PRN Reason: Constipation Tramadol HCl (Ultram) 50 mg PO Q6H PRN; Protocol PRN Reason: Pain, Mild (1-3) Last Admin: 08/02/17 14:47 Dose: 50 mg - Labs Labs: 08/03/17 05:10 08/03/17 05:10 - Constitutional Appears: Non-toxic, No Acute Distress - Eye Exam Eye Exam: Normal appearance. absent: Scleral icterus - ENT Exam ENT Exam: Mucous Membranes Moist - Respiratory Exam Respiratory Exam: Clear to Ausculation Bilateral. absent: Respiratory Distress - Cardiovascular Exam Cardiovascular Exam: RRR, +S1, +S2 - GI/Abdominal Exam GI & Abdominal Exam: Soft. absent: Distended, Tenderness - Extremities Exam Additional comments: no leg edema; - Neurological Exam Neurological Exam: Alert, Awake - Psychiatric Exam Psychiatric exam: Normal Mood. absent: Agitated - Skin Skin Exam: Warm. absent: Cyanosis Assessment and Plan (1) DEANNA (acute kidney injury) Assessment & Plan: Avoid nephrotoxic insults, especially as patient still getting back to normal diet; NSAIDS should be used sparingly, especially with history of duodenal ulcers and propensity to increase BP; Status: Resolved (2) Anemia Assessment & Plan: On IV iron loading; discussed with daughter about the need for outpatient GI f/ u in light of drop in hgb on presentation; Status: Acute (3) HTN (hypertension) Assessment & Plan: BP overall controlled on amlodipine; see above regarding NSAIDS use; Status: Chronic
--- NOTE | 2017-08-05 00:22 | PN ---
DATE: 08/04/2017 PULMONARY PROGRESS NOTE: REFERRING PHYSICIAN: Hannah Ramirez MD. SUBJECTIVE: He is lying in the bed, head of 45 degrees. Feels better. Gets short of breath with exertion. Tried to resist therapy. No nausea. No vomiting. Did have a bowel movement this morning. No leg pain or leg swelling. OBJECTIVE: GENERAL: In no acute distress. VITAL SIGNS: Temperature is 98, heart rate is 102, respiratory rate is 18, blood pressure 138/66, pulse ox of 97% on room air. HEENT: Moist mucous membrane. Crowded airway. NECK: Supple. No JVD. LUNGS: Have fair airflow with rhonchi. HEART: S1 and S2. ABDOMEN: Positive bowel sounds. No tenderness. EXTREMITIES: There is no edema. NEUROLOGIC: Awake, alert. Follows simple command. MEDICATIONS: He is on Naproxen 550 mg twice a day, Bactroban ointment to affected area, vitamin D 50,000 units q. 7 days, Dulcolax 10 mg suppository p.r.n., DuoNeb q. 6 hours, iron IV 100 mg daily, Levaquin 500 mg daily, Lipitor 20 mg daily, Lovaza 1 g daily, MiraLax 17 g daily, Norvasc 5 mg daily, Pepcid 20 mg twice a day, Synthroid 25 mg daily, Tylenol p.r.n., Ultram 50 mg q. 6 hours p.r.n. LABORATORY DATA: Shows no new lab is available since yesterday. IMPRESSION AND PLAN: Recurrent bowel obstruction, history of laparotomy with hemicolectomy secondary to adhesions, coronary artery disease, hypertension, hyperlipidemia, chronic lung disease, may have sleep apnea syndrome, basilar atelectasis, activities of daily living dysfunction. Spoke to the patient in detail. Also spoke to therapist. Finally, the patient agreed to take a walk with the therapist, doing well in therapy. Doing gastric and deep venous thrombosis prophylaxis. Thank you and we will follow with you. Dakotah Farrar MD
[2017-08-05] MEDS: Albuterol-Ipratrop 3 mg / 0.5 (3 ml) UD IH SCH ×4 (03:20→19:31)
[2017-08-05] MEDS ORDERED: Naproxen 550 mg Tab PO PRN (04:34)
[2017-08-05] MEDS: Levothyroxine 25 MCG TAB PO SCH (06:06)
[2017-08-05] MEDS: Omega-3-Acid Ethyl Esters 1 GM Cap PO SCH (10:14)
[2017-08-05] MEDS: [UNRECOGNIZED DRUG - OTHER] PO SCH (12:07)
[2017-08-05] MEDS ORDERED: Naproxen 275 mg Tab PO PRN (13:15)
--- NOTE | 2017-08-05 16:10 | PN ---
DATE: 08/04/2017 SUBJECTIVE: The patient is 81 years old male. The patient was seen and examined at bedside on 08/04/2017. Daughter and family members standing on the bedside also. According to the patient that he feels better, gets shortness of breath with exertion, having diarrhea, he is on a couple of laxative and stool softener. We will stop that. No nausea or vomiting. No headache, no fever, no chills, no hematuria, no hematochezia. PHYSICAL EXAMINATION: VITAL SIGNS: Temperature 98, heart rate 102, respiratory rate 18, blood pressure 138/56, pulse oximetry 97% on room air. HEENT: Head normocephalic, atraumatic. Eyes: PERRLA. Extraocular muscles intact. Conjunctivae clear. Nose patent. Mucous membranes moist. NECK: Supple. No carotid bruit, JVD, or thyromegaly. CHEST: Bilaterally symmetrical. HEART: S1 and S2 positive. LUNGS: Clear to auscultation. ABDOMEN: Soft. Bowel sounds are present. No organomegaly. EXTREMITIES: No edema, no cyanosis. NEUROLOGIC: The patient is awake, alert, moving all four extremities. No focal deficits. MEDICATIONS: Naproxen for 2 days, Bactroban ointment, vitamin D, Dulcolax, DuoNeb, Levaquin, Lovaza, MiraLax, Norvasc, Pepcid, Synthroid, Tylenol, and Tramadol. LABORATORY DATA: We do not have recent labs today, but I reviewed old labs. ASSESSMENT AND PLAN: The patient is a 81 years old male with recurrent bowel obstruction, history of constipation, history of laparotomy with hemicolectomy secondary to adhesions and infected mesh, history of herniorrhaphy, coronary artery disease, hypertension, hypercholesterolemia, chronic obstructive pulmonary disease, sleep apnea syndrome, bilateral atelectasis. He is not able to do his activities of daily living. Length of time discussion done with the patient's daughter and son-in-law and the patient by himself. Encourage to do physical therapy. Discontinued all laxative and stool softener. Was complaining about started on Naproxen 500 b.i.d. for 2 days, was encouraged to have good nutrition. GI and DVT prophylaxis. Repeat labs. We will follow up. Hannah Ramirez MD [facility] # [id number] [facility]
[2017-08-05] MEDS: levoFLOXacin 500 MG TAB PO SCH (22:00)
--- NOTE | 2017-08-05 23:02 | CP.PCM.PN ---
Subjective - Date & Time of Evaluation Date of Evaluation: 08/05/17 Time of Evaluation: 11:00 - Subjective Subjective: Patient reports feeling well, tolerating PT well; Objective - Vital Signs/Intake and Output Vital Signs (last 24 hours): Temp Pulse Resp BP Pulse Ox 98.2 F 94 H 16 119/50 L 99 08/05/17 17:42 08/05/17 17:42 08/05/17 17:42 08/05/17 17:42 08/05/17 17:42 Intake and Output: 08/05/17 08/06/17 18:59 06:59 Intake Total 420 Balance 420 - Medications Medications: Current Medications Acetaminophen (Tylenol 325mg Tab) 650 mg PO Q4H PRN PRN Reason: pain fever Last Admin: 08/03/17 18:41 Dose: 650 mg Albuterol/Ipratropium (Duoneb 3 Mg/0.5 Mg (3 Ml) Ud) 3 ml IH [id number] [facility] PRN Reason: Protocol Last Admin: 08/05/17 19:31 Dose: 3 ml Amlodipine Besylate (Norvasc) 5 mg PO DAILY [facility] PRN Reason: Protocol Last Admin: 08/05/17 10:15 Dose: 5 mg Atorvastatin Calcium (Lipitor) 20 mg PO DIN [facility] PRN Reason: Protocol Last Admin: 08/05/17 18:27 Dose: 20 mg Bisacodyl (Dulcolax) 10 mg RC ONCE PRN PRN Reason: Constipation Ergocalciferol (Drisdol 50,000 Intl Units Cap) 1 cap PO Q7D [facility] PRN Reason: Protocol Famotidine (Pepcid) 20 mg PO 1000,2200 [facility] Last Admin: 08/05/17 10:15 Dose: 20 mg Home Med (Home Med) 1 unit PO DAILY [facility] Last Admin: 08/05/17 12:07 Dose: Not Given Iron Sucrose 100 mg/ Sodium (Chloride) 105 mls @ 210 mls/hr IVPB 0800 [facility] PRN Reason: Protocol Stop: 08/09/17 08:29 Levofloxacin (Levaquin) 500 mg PO 2200 [facility] PRN Reason: Protocol Levothyroxine Sodium (Synthroid) 25 mcg PO 0600 [facility] PRN Reason: Protocol Last Admin: 08/05/17 06:06 Dose: 25 mcg Mupirocin (Bactroban Ointment) 0 gm TOP BID [facility] PRN Reason: Protocol Last Admin: 08/05/17 10:12 Dose: 1 applic Naproxen (Anaprox) 275 mg PO BID PRN PRN Reason: Pain, moderate (4-7) Stop: 08/06/17 11:00 [id number] Ethyl Esters (Lovaza) 1 gm PO DAILY [facility] Last Admin: 08/05/17 10:14 Dose: 1 gm Polyethylene Glycol (Miralax) 17 gm PO DAILY PRN PRN Reason: Constipation Tramadol HCl (Ultram) 50 mg PO Q6H PRN; Protocol PRN Reason: Pain, Mild (1-3) Last Admin: 08/02/17 14:47 Dose: 50 mg - Labs Labs: 08/03/17 05:10 08/03/17 05:10 - Constitutional Appears: Non-toxic, No Acute Distress - Eye Exam Eye Exam: absent: Scleral icterus - ENT Exam ENT Exam: Mucous Membranes Moist - Respiratory Exam Respiratory Exam: Clear to Ausculation Bilateral. absent: Respiratory Distress - Cardiovascular Exam Cardiovascular Exam: RRR, +S1, +S2 - GI/Abdominal Exam GI & Abdominal Exam: Soft. absent: Distended, Tenderness - Extremities Exam Additional comments: no leg edema; - Neurological Exam Neurological Exam: Alert, Awake - Psychiatric Exam Psychiatric exam: absent: Agitated - Skin Skin Exam: Warm. absent: Cyanosis Assessment and Plan (1) Anemia Assessment & Plan: On IV iron loading, continue to complete 10 doses; avoid NSAIDS with history of duodenal ulcers; Status: Acute (2) HTN (hypertension) Assessment & Plan: BP well controlled on amlodipine only, continue same; Status: Chronic
--- NOTE | 2017-08-06 00:30 | PN ---
DATE: 08/05/2017 PULMONARY PROGRESS NOTE REFERRING PHYSICIAN: Hannah Ramirez MD. SUBJECTIVE: He is lying in the bed, grandson is bedside, done well in therapy. No bowel movement today. Appetite is improved today. No cough. No sputum production. No leg pain or leg swelling. OBJECTIVE: GENERAL: In no acute distress. VITAL SIGNS: Temp is 98, heart rate is 94, respiratory rate is 20, blood pressure 119/50, pulse ox of 99% on room air. HEENT: Moist mucous membranes. No ulcer or thrush noted. NECK: Supple. No JVD. LUNGS: Have a fair airflow with rhonchi. HEART: S1 and S2. ABDOMEN: Positive bowel sounds. Soft, nontender. EXTREMITIES: There is no edema. NEUROLOGIC: Awake, alert. Follows simple command. MEDICATIONS: He is naproxen 275 mg twice a day p.r.n., Bactroban to affected area twice a day, vitamin D 50,000 units weekly, Dulcolax 10 mg rectally p.r.n., DuoNeb q. 6 hours, iron IV 100 mg daily, Levaquin 500 mg daily, Lipitor 20 mg daily, Lovaza 1 g daily, MiraLax 17 g p.o. daily p.r.n., Norvasc 5 mg daily, Pepcid 20 mg twice a day, Synthroid 25 mcg daily, Tylenol p.r.n., Ultram 50 mg q. 6 hours p.r.n. LABORATORY DATA: Reviewed. No new lab is available since yesterday. IMPRESSION AND PLAN: Recurrent bowel obstruction, history of laparotomy secondary to adhesion and obstruction secondary to hemicolectomy in the past, coronary artery disease, hypertension, hyperlipidemia, chronic lung disease, may have sleep apnea syndrome, bibasilar atelectasis, infiltrate, activities of daily living dysfunction. Pulmonary point of view, he is doing okay. Continue bronchodilator. Keep head at 45 degrees. Antibiotics as per Infectious Diseases. Continue stool softener. Continue therapy. Encourage p.o. intake. Thank you and we will follow with you. Dakotah Farrar MD [facility] # [id number]
[2017-08-06] MEDS: Albuterol-Ipratrop 3 mg / 0.5 (3 ml) UD IH SCH ×4 (01:49→20:35)
--- NOTE | 2017-08-06 03:12 | PN ---
DATE: SUBJECTIVE: The patient is 81-year-old male. The patient was seen and examined at the bedside, looking comfortable, did not have bowel movement today. No nausea, vomiting. No headache. No dizziness. No chest pain. No fever. No chills. Doing physical therapy. REVIEW OF SYSTEMS: All 12-system review of systems is negative except above as noted. PHYSICAL EXAMINATION: VITAL SIGNS: Temperature 98.2, pulse 94, blood pressure 120/80 , respiratory rate 16. HEENT: Head is normocephalic and atraumatic. Eyes: PERRLA. Extraocular muscles are intact. Conjunctivae are clear. Nose is patent. Mucous membranes are moist. NECK: Supple. No carotid bruits. No JVD or thyromegaly. CHEST: Bilaterally symmetrical. HEART: S1 and S2 positive. LUNGS: Clear to auscultation. ABDOMEN: Soft. Bowel sounds present. No organomegaly. EXTREMITIES: No edema. No cyanosis. NEUROLOGIC: The patient is awake and alert, moving all 4 extremities. No focal deficit. MEDICATIONS: Naproxen, Bactroban, vitamin D, Dulcolax, iron, Levaquin, Lipitor, Lovaza, MiraLax, Norvasc, Pepcid, Synthroid, Tylenol, and Tramadol. LABORATORY DATA: We do not have recent labs today, but I reviewed old labs. ASSESSMENT AND PLAN: Mr. Gabriela Page is a 81-year-old male with anemia, history of chronic constipation, came like almost intestinal obstruction, recurrent bowel obstruction, history of laparotomy with hemicolectomy secondary to adhesions, coronary artery disease, hypertension, hypercholesterolemia, chronic obstructive lung disease, sleep apnea syndrome, bibasilar atelectasis, activities of daily living dysfunction. I spoke to the patient in detail. Also, spoke to the therapist. Then finally patient agreed to do physical therapy. Gastrointestinal and deep venous thrombosis prophylaxis. Repeat labs. We will follow up. Hannah Ramirez MD MTDD
[2017-08-06] MEDS: Levothyroxine 25 MCG TAB PO SCH (06:16)
[2017-08-06 06:51] LABS: BLOOD UREA NITROGEN 14 mg/dL (7-21); CALCIUM 8.5 mg/dL (8.4-10.5); GFR AFRICAN-AMERICAN > 60; GFR NON-AFRICAN AMERICAN > 60; HEMOGLOBIN 9.5 g/dL (14.0-18.0); MEAN CELL VOLUME 95.9 fl (80.0-105.0); MEAN CORPUSCULAR HEMOGLOBIN 32.2 pg (25.0-35.0); MEAN CORPUSCULAR HGB CONC 33.6 g/dl (31.0-37.0); MEAN PLATELET VOLUME 8.7 fl (7.0-11.0); RBC 2.95 10^6/uL (3.5-6.1); RED CELL DISTRIBUTION WIDTH 15.5 % (11.5-14.5); WHITE BLOOD COUNT 7.6 10^3/ul (4.5-11.0)
[2017-08-06] MEDS: [UNRECOGNIZED DRUG - OTHER] PO SCH (10:16)
[2017-08-06] MEDS: Omega-3-Acid Ethyl Esters 1 GM Cap PO SCH (10:17)
--- NOTE | 2017-08-06 15:46 | CP.PCM.PN ---
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 S/p 1 unit of blood. Blood pressure is stable. Fecal impactation vs. constipation vs. diarrhea resolved. Today, pt is resting comfortably in bed. Denies any fever, chills, chest pain, shortness of breath, abdominal pain, nausea, vomiting or urinary problems. Objective - Vital Signs/Intake and Output Vital Signs (last 24 hours): Temp Pulse Resp BP Pulse Ox 98.6 F 100 H 18 119/81 97 08/06/17 10:00 08/06/17 11:51 08/06/17 10:00 08/06/17 10:24 08/06/17 11:51 - Medications Medications: Current Medications Acetaminophen (Tylenol 325mg Tab) 650 mg PO Q4H PRN PRN Reason: pain fever Last Admin: 08/03/17 18:41 Dose: 650 mg Albuterol/Ipratropium (Duoneb 3 Mg/0.5 Mg (3 Ml) Ud) 3 ml IH [id number] [facility] PRN Reason: Protocol Last Admin: 08/06/17 13:19 Dose: 3 ml Amlodipine Besylate (Norvasc) 5 mg PO DAILY [facility] PRN Reason: Protocol Last Admin: 08/06/17 10:24 Dose: 5 mg Atorvastatin Calcium (Lipitor) 20 mg PO DIN [facility] PRN Reason: Protocol Last Admin: 08/05/17 18:27 Dose: 20 mg Bisacodyl (Dulcolax) 10 mg RC ONCE PRN PRN Reason: Constipation Ergocalciferol (Drisdol 50,000 Intl Units Cap) 1 cap PO Q7D [facility] PRN Reason: Protocol Famotidine (Pepcid) 20 mg PO 1000,2200 [facility] Last Admin: 08/06/17 10:21 Dose: 20 mg Home Med (Home Med) 1 unit PO DAILY [facility] Last Admin: 08/06/17 10:16 Dose: Not Given Iron Sucrose 100 mg/ Sodium (Chloride) 105 mls @ 210 mls/hr IVPB 0800 [facility] PRN Reason: Protocol Stop: 08/09/17 08:29 Last Admin: 08/06/17 09:00 Dose: 210 mls/hr Levofloxacin (Levaquin) 500 mg PO 2200 [facility] PRN Reason: Protocol Last Admin: 08/05/17 22:00 Dose: Not Given Levothyroxine Sodium (Synthroid) 25 mcg PO 0600 [facility] PRN Reason: Protocol Last Admin: 08/06/17 06:16 Dose: 25 mcg Qyroh-8-[id number] Ethyl Esters (Lovaza) 1 gm PO DAILY [facility] Last Admin: 08/06/17 10:17 Dose: 1 gm Polyethylene Glycol (Miralax) 17 gm PO DAILY PRN PRN Reason: Constipation Last Admin: 08/06/17 14:38 Dose: 17 gm Tramadol HCl (Ultram) 50 mg PO Q6H PRN; Protocol PRN Reason: Pain, Mild (1-3) Last Admin: 08/02/17 14:47 Dose: 50 mg - Labs Labs: 08/06/17 05:40 08/06/17 05:40 - Constitutional Appears: Well - Head Exam Head Exam: ATRAUMATIC, NORMAL INSPECTION, NORMOCEPHALIC - Eye Exam Eye Exam: EOMI, Normal appearance, PERRL Pupil Exam: NORMAL ACCOMODATION, PERRL - ENT Exam ENT Exam: Mucous Membranes Moist, Normal Exam - Neck Exam Neck Exam: Full ROM, Normal Inspection. absent: Lymphadenopathy - Respiratory Exam Respiratory Exam: Clear to Ausculation Bilateral, NORMAL BREATHING PATTERN - Cardiovascular Exam Cardiovascular Exam: REGULAR RHYTHM, +S1, +S2. absent: Murmur - GI/Abdominal Exam GI & Abdominal Exam: Distended, Soft, Normal Bowel Sounds - Extremities Exam Extremities Exam: Full ROM, Normal Capillary Refill, Normal Inspection. absent : Joint Swelling, Pedal Edema - Back Exam Back Exam: NORMAL INSPECTION - Neurological Exam Neurological Exam: Alert, Awake, Oriented x3 - Psychiatric Exam Psychiatric exam: Normal Affect, Normal Mood - Skin Skin Exam: Dry, Intact, Normal Color, Warm Assessment and Plan (1) Abdominal pain Status: Acute (2) Anemia Status: Acute (3) CAD (coronary artery disease) Status: Chronic (4) Hernia Status: Chronic (5) Sepsis Status: Acute (6) HTN (hypertension) Status: Chronic (7) DEANNA (acute kidney injury) Status: Resolved - Assessment and Plan (Free Text) Plan: s/p Levaquin. IV venofer. Continue PT & OT. GI/VTE prophlyaxis. Consults: Nephro - Dr. Justine Mccullough - Dr. Leni PEARCE - Dr. Duarte / [facility] - Dr. Barrera <Hannah Ramirez - Last Filed: 08/07/17 09:22> Objective - Vital Signs/Intake and Output Vital Signs (last 24 hours): Temp Pulse Resp BP Pulse Ox 98.1 F 91 H 16 126/62 97 08/06/17 17:40 08/06/17 17:40 08/06/17 17:40 08/06/17 17:40 08/06/17 17:40 Intake and Output: 08/07/17 08/07/17 06:59 18:59 Intake Total 420 Balance 420 - Medications Medications: Current Medications Acetaminophen (Tylenol 325mg Tab) 650 mg PO Q4H PRN PRN Reason: pain fever Last Admin: 08/03/17 18:41 Dose: 650 mg Albuterol/Ipratropium (Duoneb 3 Mg/0.5 Mg (3 Ml) Ud) 3 ml IH [id number] [facility] PRN Reason: Protocol Last Admin: 08/07/17 07:52 Dose: 3 ml Amlodipine Besylate (Norvasc) 5 mg PO DAILY [facility] PRN Reason: Protocol Last Admin: 08/06/17 10:24 Dose: 5 mg Atorvastatin Calcium (Lipitor) 20 mg PO DIN [facility] PRN Reason: Protocol Last Admin: 08/06/17 17:32 Dose: 20 mg Bisacodyl (Dulcolax) 10 mg RC ONCE PRN PRN Reason: Constipation Ergocalciferol (Drisdol 50,000 Intl Units Cap) 1 cap PO Q7D [facility] PRN Reason: Protocol Famotidine (Pepcid) 20 mg PO 1000,2200 [facility] Last Admin: 08/06/17 22:31 Dose: 20 mg Iron Sucrose 100 mg/ Sodium (Chloride) 105 mls @ 210 mls/hr IVPB 0800 [facility] PRN Reason: Protocol Stop: 08/09/17 08:29 Last Admin: 08/06/17 09:00 Dose: 210 mls/hr Levofloxacin (Levaquin) 500 mg PO 2200 [facility] PRN Reason: Protocol Last Admin: 08/06/17 22:31 Dose: 500 mg Levothyroxine Sodium (Synthroid) 25 mcg PO 0600 [facility] PRN Reason: Protocol Last Admin: 08/07/17 06:45 Dose: 25 mcg Multivitamins/Minerals (Therapeutic-M Tab) 1 tab PO 0800 [facility] PRN Reason: Protocol [id number]-[id number] Ethyl Esters (Lovaza) 1 gm PO DAILY [facility] Last Admin: 08/06/17 10:17 Dose: 1 gm Polyethylene Glycol (Miralax) 17 gm PO DAILY PRN PRN Reason: Constipation Last Admin: 08/06/17 14:38 Dose: 17 gm Tramadol HCl (Ultram) 50 mg PO Q6H PRN; Protocol PRN Reason: Pain, Mild (1-3) Last Admin: 08/02/17 14:47 Dose: 50 mg - Labs Labs: 08/06/17 05:40 08/06/17 05:40 Assessment and Plan - Assessment and Plan (Free Text) Plan: 81 yr male w/ history of arthritis, DM II, CAD (stents x2), HTN, Hyperlipidemia, Hiatal hernia & L inguinal hernia w/ 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 S/p 1 unit of blood. Blood pressure is stable. Fecal impactation vs. constipation vs. diarrhea resolved. Today, pt is resting comfortably in bed. Denies any fever, chills, chest pain, shortness of breath, abdominal pain, nausea, vomiting or urinary problems.pt is seen and examined at bed side , looking comfortable , agreed all above , d/d with [employer] , no bm ,2 days , laxative given . d/d with family and staff
--- NOTE | 2017-08-06 17:51 | PN ---
DATE: PULMONARY PROGRESS NOTE REFERRING PHYSICIAN: Hannah Ramirez MD. SUBJECTIVE: He is lying in the bed at 45 degrees. Night was unremarkable, doing well in therapy. No cough, no sputum production. Gets short of breath with exertion. Mild abdominal discomfort. No bowel movement in the last two days. No leg swelling. OBJECTIVE: GENERAL: In no acute distress. VITAL SIGNS: Temperature is 98, heart rate 70, respiratory rate is 20, blood pressure 155/77, pulse ox 97% on room air. HEENT: Moist mucous membrane. Small oral cavity. NECK: Supple. No JVD. LUNGS: Have a fair airflow with rhonchi. HEART: S1, S2. ABDOMEN: Positive bowel sounds. Mildly distended. EXTREMITIES: No edema. NEUROLOGIC: Awake, alert, follows simple commands. MEDICATIONS: He is on vitamin D 50,000 units weekly, Dulcolax 10 mg rectally p.r.n., DuoNeb q.6 hour, iron sucrose 100 mg daily, Levaquin 500 mg daily, Lipitor 20 mg daily, Lovaza 1 g daily, MiraLax 17 g daily, Norvasc 5 mg daily, Pepcid 20 mg twice a day, Synthroid 25 mcg daily, Tylenol p.r.n., Ultram 50 mg q.6 hour p.r.n. LABORATORY DATA: Shows hemoglobin 9.5, hematocrit 28.3, WBC 7.6, platelet count is 379. Sodium 140, potassium 4.0, chloride 107, bicarbonate 25, BUN 14, creatinine 0.9, glucose 102, calcium 8.5. IMPRESSION: Recurrent bowel obstruction, history of laparotomy secondary to adhesions and recurrent intestinal obstruction, history of hemicolectomy in the past, coronary artery disease, hypertension, hyperlipidemia, chronic lung disease, may have sleep apnea syndrome, bibasilar atelectasis, pulmonary infiltrate. PLAN: Continue bronchodilator. Keep head at 45 degrees. Continue to ambulate. May give Dulcolax suppository. Fall precaution. Thank you and we will follow with you. Dakotah Farrar MD
[2017-08-06] MEDS: levoFLOXacin 500 MG TAB PO SCH (22:31)
[2017-08-07] MEDS: Albuterol-Ipratrop 3 mg / 0.5 (3 ml) UD IH SCH ×4 (02:15→19:42)
[2017-08-07] MEDS: Levothyroxine 25 MCG TAB PO SCH (06:45)
[2017-08-07] MEDS: Multivitamin With Minerals Tab PO SCH (09:25)
[2017-08-07] MEDS: Omega-3-Acid Ethyl Esters 1 GM Cap PO SCH (09:30)
--- NOTE | 2017-08-07 11:26 | CP.PCM.PN ---
Subjective - Date & Time of Evaluation Date of Evaluation: 08/07/17 Time of Evaluation: 10:40 - Subjective Subjective: Comfortable on a chair, no fevers. Objective - Vital Signs/Intake and Output Vital Signs (last 24 hours): Temp Pulse Resp BP Pulse Ox 98.1 F 91 H 16 123/63 97 08/06/17 17:40 08/06/17 17:40 08/06/17 17:40 08/07/17 09:30 08/06/17 17:40 Intake and Output: 08/07/17 08/07/17 06:59 18:59 Intake Total 420 Balance 420 - Medications Medications: Current Medications Acetaminophen (Tylenol 325mg Tab) 650 mg PO Q4H PRN PRN Reason: pain fever Last Admin: 08/03/17 18:41 Dose: 650 mg Albuterol/Ipratropium (Duoneb 3 Mg/0.5 Mg (3 Ml) Ud) 3 ml IH [id number] [facility] PRN Reason: Protocol Last Admin: 08/07/17 07:52 Dose: 3 ml Amlodipine Besylate (Norvasc) 5 mg PO DAILY [facility] PRN Reason: Protocol Last Admin: 08/07/17 09:30 Dose: 5 mg Atorvastatin Calcium (Lipitor) 20 mg PO DIN [facility] PRN Reason: Protocol Last Admin: 08/06/17 17:32 Dose: 20 mg Bisacodyl (Dulcolax) 10 mg RC ONCE PRN PRN Reason: Constipation Ergocalciferol (Drisdol 50,000 Intl Units Cap) 1 cap PO Q7D [facility] PRN Reason: Protocol Famotidine (Pepcid) 20 mg PO 1000,2200 [facility] Last Admin: 08/07/17 09:31 Dose: 20 mg Iron Sucrose 100 mg/ Sodium (Chloride) 105 mls @ 210 mls/hr IVPB 0800 [facility] PRN Reason: Protocol Stop: 08/09/17 08:29 Last Admin: 08/07/17 09:28 Dose: 210 mls/hr Levofloxacin (Levaquin) 500 mg PO 2200 [facility] PRN Reason: Protocol Last Admin: 08/06/17 22:31 Dose: 500 mg Levothyroxine Sodium (Synthroid) 25 mcg PO 0600 [facility] PRN Reason: Protocol Last Admin: 08/07/17 06:45 Dose: 25 mcg Multivitamins/Minerals (Therapeutic-M Tab) 1 tab PO 0800 [facility] PRN Reason: Protocol Last Admin: 08/07/17 09:25 Dose: 1 tab Bspfh-[id number] Ethyl Esters (Lovaza) 1 gm PO DAILY [facility] Last Admin: 08/07/17 09:30 Dose: 1 gm Polyethylene Glycol (Miralax) 17 gm PO DAILY PRN PRN Reason: Constipation Last Admin: 08/06/17 14:38 Dose: 17 gm Tramadol HCl (Ultram) 50 mg PO Q6H PRN; Protocol PRN Reason: Pain, Mild (1-3) Last Admin: 08/02/17 14:47 Dose: 50 mg - Labs Labs: 08/06/17 05:40 08/06/17 05:40 - Constitutional Appears: Non-toxic, Chronically Ill - Head Exam Head Exam: NORMAL INSPECTION - ENT Exam ENT Exam: Mucous Membranes Moist - Neck Exam Neck Exam: absent: Meningismus - Respiratory Exam Respiratory Exam: Decreased Breath Sounds - Cardiovascular Exam Cardiovascular Exam: +S1, +S2 - GI/Abdominal Exam GI & Abdominal Exam: Soft. 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
[2017-08-07 17:37] VITALS: RESP 18
[2017-08-07] MEDS: levoFLOXacin 500 MG TAB PO SCH (21:21)
--- NOTE | 2017-08-07 21:36 | CP.PCM.PN ---
Subjective - Date & Time of Evaluation Date of Evaluation: 08/07/17 Time of Evaluation: 11:00 - Subjective Subjective: Reports feeling well, tolerating PT, wanting to go home; Objective - Vital Signs/Intake and Output Vital Signs (last 24 hours): Temp Pulse Resp BP Pulse Ox 98.6 F 84 18 120/54 L 97 08/07/17 17:37 08/07/17 17:37 08/07/17 17:37 08/07/17 17:37 08/07/17 17:37 Intake and Output: 08/07/17 08/08/17 18:59 06:59 Intake Total 420 Balance 420 - Medications Medications: Current Medications Acetaminophen (Tylenol 325mg Tab) 650 mg PO Q4H PRN PRN Reason: pain fever Last Admin: 08/03/17 18:41 Dose: 650 mg Albuterol/Ipratropium (Duoneb 3 Mg/0.5 Mg (3 Ml) Ud) 3 ml IH [id number] [facility] PRN Reason: Protocol Last Admin: 08/07/17 19:42 Dose: 3 ml Amlodipine Besylate (Norvasc) 5 mg PO DAILY [facility] PRN Reason: Protocol Last Admin: 08/07/17 09:30 Dose: 5 mg Atorvastatin Calcium (Lipitor) 20 mg PO DIN [facility] PRN Reason: Protocol Last Admin: 08/07/17 18:20 Dose: 20 mg Bisacodyl (Dulcolax) 10 mg RC ONCE PRN PRN Reason: Constipation Ergocalciferol (Drisdol 50,000 Intl Units Cap) 1 cap PO Q7D [facility] PRN Reason: Protocol Famotidine (Pepcid) 20 mg PO 1000,2200 [facility] Last Admin: 08/07/17 21:21 Dose: 20 mg Iron Sucrose 100 mg/ Sodium (Chloride) 105 mls @ 210 mls/hr IVPB 0800 [facility] PRN Reason: Protocol Stop: 08/09/17 08:29 Last Admin: 08/07/17 09:28 Dose: 210 mls/hr Levofloxacin (Levaquin) 500 mg PO 2200 [facility] PRN Reason: Protocol Last Admin: 08/07/17 21:21 Dose: 500 mg Levothyroxine Sodium (Synthroid) 25 mcg PO 0600 [facility] PRN Reason: Protocol Last Admin: 08/07/17 06:45 Dose: 25 mcg Multivitamins/Minerals (Therapeutic-M Tab) 1 tab PO 0800 [facility] PRN Reason: Protocol Last Admin: 08/07/17 09:25 Dose: 1 tab Muqnz-3-Hwfi Ethyl Esters (Lovaza) 1 gm PO DAILY [facility] Last Admin: 08/07/17 09:30 Dose: 1 gm Polyethylene Glycol (Miralax) 17 gm PO DAILY PRN PRN Reason: Constipation Last Admin: 08/06/17 14:38 Dose: 17 gm Tramadol HCl (Ultram) 50 mg PO Q6H PRN; Protocol PRN Reason: Pain, Mild (1-3) Last Admin: 08/02/17 14:47 Dose: 50 mg - Labs Labs: 08/06/17 05:40 08/06/17 05:40 - Constitutional Appears: Well - Eye Exam Eye Exam: Normal appearance - ENT Exam ENT Exam: Mucous Membranes Moist - Respiratory Exam Respiratory Exam: Clear to Ausculation Bilateral. absent: Respiratory Distress - Cardiovascular Exam Cardiovascular Exam: RRR, +S1, +S2 - GI/Abdominal Exam GI & Abdominal Exam: Soft. absent: Distended, Tenderness - Extremities Exam Additional comments: no leg edema; - Neurological Exam Neurological Exam: Alert, Awake - Psychiatric Exam Psychiatric exam: Normal Mood. absent: Agitated - Skin Skin Exam: Warm. absent: Cyanosis Assessment and Plan (1) Anemia Assessment & Plan: Hgb stable, on IV iron loading, continue to complete 10 doses; Status: Acute (2) HTN (hypertension) Assessment & Plan: BP well controlled on amlodipine 5 mg daily; continue same; Status: Chronic
[2017-08-07] MEDS ORDERED: [UNRECOGNIZED DRUG - OTHER] PO PRN (22:25)
--- NOTE | 2017-08-08 02:05 | PN ---
DATE: PULMONARY PROGRESS NOTE REFERRING PHYSICIAN: Hannah Ramirez MD SUBJECTIVE: Patient is lying in the bed, head at 45 degrees. Doing well in therapy. Night was unremarkable. No nausea. No vomiting. Had a bowel movement yesterday. No leg pain or leg swelling. Want to have something for sleep tonight. OBJECTIVE: GENERAL: In no acute distress. VITAL SIGNS: Temperature is 98, heart rate is 84, respiratory rate is 18, blood pressure 120/54, pulse ox 97% on room air. HEENT: Moist mucous membrane. Small oral cavity. Crowded airway. NECK: Supple. No JVD. LUNGS: Have a fair airflow, with rhonchi. HEART: S1 and S2. ABDOMEN: Soft and nontender. EXTREMITIES: No edema. NEUROLOGIC: Awake, alert. Follows simple command. MEDICATIONS: He is on vitamin D 50,000 units q. 7 days, Dulcolax 10 mg rectally p.r.n., DuoNeb q. 6 hour p.r.n., iron sucrose 100 mg daily, Levaquin 500 mg daily, Lipitor 20 mg daily, Lovaza 1 g daily, MiraLax 17 g daily, Norvasc 5 mg daily, Pepcid 20 mg twice a day, Synthroid 25 mcg daily, multivitamins daily, Tylenol p.r.n., Ultram 50 mg q. 6 hours p.r.n. LABORATORY DATA: Reviewed, and no new lab is available since yesterday. IMPRESSION AND PLAN: Recurrent bowel obstruction, history of laparotomy secondary to adhesion and recurrent intestinal obstruction, history of hemicolectomy, coronary artery disease, hypertension, hyperlipidemia, chronic lung disease, may have sleep apnea syndrome, bibasilar atelectasis, insomnia. May give Ambien 2.5 mg today, keep head at 45 degrees. Aspiration precaution. Out of bed to chair. Physical therapy. P.r.n. laxative. Continue therapy. Thank you and we will follow with you. Dakotah Farrar MD
[2017-08-08] MEDS: Albuterol-Ipratrop 3 mg / 0.5 (3 ml) UD IH SCH ×2 (02:15→07:42)
[2017-08-08] MEDS: Levothyroxine 25 MCG TAB PO SCH (05:02)
[2017-08-08 06:34] VITALS: TEMP 98.7; O2SAT 98
[2017-08-08 07:05] LABS: HEMOGLOBIN 9.6 g/dL (14.0-18.0); MEAN CORPUSCULAR HEMOGLOBIN 31.8 pg (25.0-35.0); MEAN CORPUSCULAR HGB CONC 33.1 g/dl (31.0-37.0); MEAN PLATELET VOLUME 8.6 fl (7.0-11.0); RBC 3.02 10^6/uL (3.5-6.1); RED CELL DISTRIBUTION WIDTH 15.8 % (11.5-14.5); WHITE BLOOD COUNT 5.4 10^3/ul (4.5-11.0)
[2017-08-08 07:16] LABS: BLOOD UREA NITROGEN 12 mg/dL (7-21); CALCIUM 8.7 mg/dL (8.4-10.5); GFR AFRICAN-AMERICAN > 60; GFR NON-AFRICAN AMERICAN > 60
--- NOTE | 2017-08-08 08:01 | PN ---
DATE: The patient is a 81-year-old male. SUBJECTIVE: The patient is examined at the bedside. Looking comfortable. Did bowel movement. No nausea or vomiting. No chest pain. No palpitation. No fever. No chills. No headache. No dizziness. No hematuria or hematochezia. Doing physical therapy very comfortably. PHYSICAL EXAMINATION: VITAL SIGNS: Temperature 98.1, pulse 91, respiratory rate 16, blood pressure 120/60. Pulse oximetry of 97. HEENT: Head: Normocephalic, atraumatic. Eyes: PERRLA. Extraocular muscles intact. Conjunctivae clear. Nose patent. Mucous membranes moist. NECK: Supple. No carotid bruits, JVD, or thyromegaly. CHEST: Bilaterally symmetrical. HEART: S1 and S2 positive. LUNGS: Clear to auscultation. ABDOMEN: Soft. Bowel sounds positive. No organomegaly. EXTREMITIES: No edema. No cyanosis. NEUROLOGIC: The patient is awake and alert. Moving all four extremities. No focal deficits. MEDICATIONS: DuoNeb, Norvasc, Lipitor, Dulcolax, vitamin D, Pepcid, iron, Levaquin, Synthroid, multivitamin, Lovaza, tramadol. LABORATORY DATA: White blood cells 7.6, hemoglobin 9.5, hematocrit 28.3, platelets 379. Sodium 140, potassium 4.0, BUN 14, creatinine 0.9, glucose 102. ASSESSMENT AND PLAN: Mr. Gabriela Page is a 81-year-old male with a community-acquired pneumonia, clinically improved, status post treatment of antibiotics; history of sepsis probably due to left inguinal abscess in the past with a colocutaneous fistula from descending colon associated with an infected inguinal mass, status post incision and drainage, status post sigmoid resection, removal of the foreign body, coronary artery disease, hypertension, dyslipidemia, chronic obstructive pulmonary disease, chronic back pain, arthritis, history of diverticulosis, got Levaquin. Monitoring of the antibiotics. He is at risk of nosocomial infection. I am planning to send the patient home tomorrow. Getting a physical therapy. The patient is living alone, was not able to do his activities of daily living that is why we gave rehab. Now, he is getting better. We will follow up as outpatient. Hannah Ramirez MD E[facility]
[2017-08-08] MEDS: Multivitamin With Minerals Tab PO SCH (08:05)
[2017-08-08] MEDS ORDERED: Ergocalciferol 50,000 Intl Units Cap PO SCH (10:00)
[2017-08-08] MEDS: Omega-3-Acid Ethyl Esters 1 GM Cap PO SCH (10:21)
[2017-08-08 10:24] VITALS: BP 154/77; PULSE 86
--- NOTE | 2017-08-08 10:27 | CP.PCM.PN ---
Subjective - Date & Time of Evaluation Date of Evaluation: 08/08/17 Time of Evaluation: 09:45 - Subjective Subjective: Comfortably sitting on a chair, no fevers, no diarrhea. Objective - Vital Signs/Intake and Output Vital Signs (last 24 hours): Temp Pulse Resp BP Pulse Ox 98.7 F 79 18 127/62 98 08/08/17 06:00 08/08/17 08:42 08/08/17 06:00 08/08/17 06:00 08/08/17 06:00 Intake and Output: 08/08/17 08/08/17 06:59 18:59 Output Total 200 Balance -200 - Medications Medications: Current Medications Acetaminophen (Tylenol 325mg Tab) 650 mg PO Q4H PRN PRN Reason: pain fever Last Admin: 08/03/17 18:41 Dose: 650 mg Albuterol/Ipratropium (Duoneb 3 Mg/0.5 Mg (3 Ml) Ud) 3 ml IH [id number] [facility] PRN Reason: Protocol Last Admin: 08/08/17 07:42 Dose: 3 ml Amlodipine Besylate (Norvasc) 5 mg PO DAILY [facility] PRN Reason: Protocol Last Admin: 08/07/17 09:30 Dose: 5 mg Atorvastatin Calcium (Lipitor) 20 mg PO DIN [facility] PRN Reason: Protocol Last Admin: 08/07/17 18:20 Dose: 20 mg Bisacodyl (Dulcolax) 10 mg RC ONCE PRN PRN Reason: Constipation Ergocalciferol (Drisdol 50,000 Intl Units Cap) 1 cap PO Q7D [facility] PRN Reason: Protocol Famotidine (Pepcid) 20 mg PO 1000,2200 [facility] Last Admin: 08/07/17 21:21 Dose: 20 mg Iron Sucrose 100 mg/ Sodium (Chloride) 105 mls @ 210 mls/hr IVPB 0800 [facility] PRN Reason: Protocol Stop: 08/09/17 08:29 Last Admin: 08/08/17 08:05 Dose: 210 mls/hr Levofloxacin (Levaquin) 500 mg PO 2200 [facility] PRN Reason: Protocol Last Admin: 08/07/17 21:21 Dose: 500 mg Levothyroxine Sodium (Synthroid) 25 mcg PO 0600 [facility] PRN Reason: Protocol Last Admin: 08/08/17 05:02 Dose: 25 mcg Multivitamins/Minerals (Therapeutic-M Tab) 1 tab PO 0800 [facility] PRN Reason: Protocol Last Admin: 08/08/17 08:05 Dose: 1 tab Vuqas-4-Jkff Ethyl Esters (Lovaza) 1 gm PO DAILY [facility] Last Admin: 08/07/17 09:30 Dose: 1 gm Polyethylene Glycol (Miralax) 17 gm PO DAILY PRN PRN Reason: Constipation Last Admin: 08/06/17 14:38 Dose: 17 gm Tramadol HCl (Ultram) 50 mg PO Q6H PRN; Protocol PRN Reason: Pain, Mild (1-3) Last Admin: 08/02/17 14:47 Dose: 50 mg Zolpidem Tartrate (Ambien) 2.5 mg PO HS PRN; Protocol PRN Reason: Insomnia - Labs Labs: 08/08/17 06:10 08/08/17 06:10 - Constitutional Appears: Chronically Ill - Head Exam Head Exam: NORMAL INSPECTION - ENT Exam ENT Exam: Mucous Membranes Moist - Respiratory Exam Respiratory Exam: Decreased Breath Sounds - Cardiovascular Exam Cardiovascular Exam: +S1, +S2 - GI/Abdominal Exam GI & Abdominal Exam: Soft. 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
--- NOTE | 2017-08-08 13:10 | CP.PCM.DIS ---
<Fiorella Jama - Last Filed: 08/08/17 13:06> Provider - Provider Date of Admission: 08/01/17 18:09 Attending physician: Hannah Ramirez MD Primary care physician: Hannah Ramirez MD Consults: Nephro - Dr. Justine Mccullough - Dr. Leni PEARCE - Dr[facility] Duarte [facility] - Dr. Barrera Time Spent in preparation of Discharge (in minutes): 40 Diagnosis - Discharge Diagnosis (1) Abdominal pain Status: Acute (2) Anemia Status: Acute (3) CAD (coronary artery disease) Status: Chronic (4) Hernia Status: Chronic (5) Sepsis Status: Acute (6) HTN (hypertension) Status: Chronic Hospital Course - Lab Results Lab Results: Micro Results 08/06/17 10:41 Nose MRSA Culture (Admit) - Final Most Recent Lab Values WBC 5.4 10^3/ul (4.5-11.0) D 08/08/17 06:10 RBC 3.02 10^6/uL (3.5-6.1) L 08/08/17 06:10 Hgb 9.6 g/dL (14.0-18.0) L 08/08/17 06:10 Hct 29.0 % (42.0-52.0) L 08/08/17 06:10 MCV 96.0 fl (80.0-105.0) 08/08/17 06:10 MCH 31.8 pg (25.0-35.0) 08/08/17 06:10 MCHC 33.1 g/dl (31.0-37.0) 08/08/17 06:10 RDW 15.8 % (11.5-14.5) H 08/08/17 06:10 Plt Count 406 10^3/uL (120.0-450.0) 08/08/17 06:10 MPV 8.6 fl (7.0-11.0) 08/08/17 06:10 Sodium 140 mmol/L (132-148) 08/08/17 06:10 Potassium 3.6 mmol/L (3.6-5.0) 08/08/17 06:10 Chloride 107 mmol/L (98-107) 08/08/17 06:10 Carbon Dioxide 24 mmol/L (21-33) 08/08/17 06:10 Anion Gap 13 (10-20) 08/08/17 06:10 BUN 12 mg/dL (7-21) 08/08/17 06:10 Creatinine 0.9 mg/dl (0.8-1.5) 08/08/17 06:10 Est GFR ( Amer) > 60 08/08/17 06:10 Est GFR (Non-Af Amer) > 60 08/08/17 06:10 Random Glucose 114 mg/dL (70-110) H 08/08/17 06:10 Calcium 8.7 mg/dL (8.4-10.5) 08/08/17 06:10 Phosphorus 2.5 mg/dL (2.5-4.5) 08/03/17 05:10 Total Bilirubin 0.3 mg/dL (0.2-1.3) 08/03/17 05:10 AST 31 U/L (17-59) 08/03/17 05:10 ALT 37 U/L (7-56) 08/03/17 05:10 Alkaline Phosphatase 42 U/L (38-126) 08/03/17 05:10 Total Protein 5.6 g/dL (5.8-8.3) L 08/03/17 05:10 Albumin 2.7 g/dL (3.0-4.8) L 08/03/17 05:10 Globulin 2.9 gm/dL 08/03/17 05:10 Albumin/Globulin Ratio 0.9 (1.1-1.8) L 08/03/17 05:10 - Hospital Course Hospital Course: 81 yr male w/ history of arthritis, DM II, CAD (stents x2), HTN, Hyperlipidemia, Hiatal hernia & L inguinal hernia w/ 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 S/p 1 unit of blood. Blood pressure is stable. Fecal impactation vs. constipation vs. diarrhea resolved. s/ p Levaquin & IV venofer. Pt cleared for discharge. - Date & Time of H&P Date of H&P: 08/08/17 Time of H&P: 09:50 Discharge Exam - Head Exam Head Exam: NORMAL INSPECTION - Eye Exam Eye Exam: EOMI, Normal appearance, PERRL Pupil Exam: NORMAL ACCOMODATION, PERRL - ENT Exam ENT Exam: Mucous Membranes Moist - Neck Exam Neck exam: Normal Inspection - Respiratory Exam Respiratory Exam: Clear to PA & Lateral, Respiratory Distress, NORMAL BREATHING PATTERN - Cardiovascular Exam Cardiovascular Exam: +S1, +S2 - GI/Abdominal Exam GI & Abdominal Exam: Hernia, Normal Bowel Sounds, Soft - Extremities Exam Extremities exam: full ROM, normal capillary refill, normal inspection - Neurological Exam Neurological exam: Alert, Normal Gait, Oriented x3 - Psychiatric Exam Psychiatric exam: Normal Affect, Normal Mood - Skin Skin Exam: Dry, Intact, Normal Color, Warm Discharge Plan - Follow Up Plan Condition: GOOD Disposition: HOME/ ROUTINE Instructions: Gastrointestinal Bleeding, Gastrointestinal Bleeding (DC), Sepsis , Adult (DC), Syncope (DC), Syncope (GEN), Open Herniorrhaphy (DC), Laparoscopic Herniorrhaphy (DC), Inguinal Hernia (DC), Acute Abdominal Pain (DC) , Acute Abdominal Pain (GEN), Hypertension (DC), Hypertension (GEN) Additional Instructions: Please follow up with your primary MD 1 week after discharge. Please continue your medications as per MD order. Referrals: Hannah Ramirez MD [Primary Care Provider] - <Hannah Ramirez - Last Filed: 08/08/17 21:46> Provider - Provider Date of Admission: 08/01/17 18:09 Attending physician: Hannah Ramirez MD Primary care physician: Hannah Ramirez MD Hospital Course - Lab Results Lab Results: Micro Results 08/06/17 10:41 Nose MRSA Culture (Admit) - Final Most Recent Lab Values WBC 5.4 10^3/ul (4.5-11.0) D 08/08/17 06:10 RBC 3.02 10^6/uL (3.5-6.1) L 08/08/17 06:10 Hgb 9.6 g/dL (14.0-18.0) L 08/08/17 06:10 Hct 29.0 % (42.0-52.0) L 08/08/17 06:10 MCV 96.0 fl (80.0-105.0) 08/08/17 06:10 MCH 31.8 pg (25.0-35.0) 08/08/17 06:10 MCHC 33.1 g/dl (31.0-37.0) 08/08/17 06:10 RDW 15.8 % (11.5-14.5) H 08/08/17 06:10 Plt Count 406 10^3/uL (120.0-450.0) 08/08/17 06:10 MPV 8.6 fl (7.0-11.0) 08/08/17 06:10 Sodium 140 mmol/L (132-148) 08/08/17 06:10 Potassium 3.6 mmol/L (3.6-5.0) 08/08/17 06:10 Chloride 107 mmol/L (98-107) 08/08/17 06:10 Carbon Dioxide 24 mmol/L (21-33) 08/08/17 06:10 Anion Gap 13 (10-20) 08/08/17 06:10 BUN 12 mg/dL (7-21) 08/08/17 06:10 Creatinine 0.9 mg/dl (0.8-1.5) 08/08/17 06:10 Est GFR ( Amer) > 60 08/08/17 06:10 Est GFR (Non-Af Amer) > 60 08/08/17 06:10 Random Glucose 114 mg/dL (70-110) H 08/08/17 06:10 Calcium 8.7 mg/dL (8.4-10.5) 08/08/17 06:10 Phosphorus 2.5 mg/dL (2.5-4.5) 08/03/17 05:10 Total Bilirubin 0.3 mg/dL (0.2-1.3) 08/03/17 05:10 AST 31 U/L (17-59) 08/03/17 05:10 ALT 37 U/L (7-56) 08/03/17 05:10 Alkaline Phosphatase 42 U/L (38-126) 08/03/17 05:10 Total Protein 5.6 g/dL (5.8-8.3) L 08/03/17 05:10 Albumin 2.7 g/dL (3.0-4.8) L 08/03/17 05:10 Globulin 2.9 gm/dL 08/03/17 05:10 Albumin/Globulin Ratio 0.9 (1.1-1.8) L 08/03/17 05:10 - Hospital Course Hospital Course: pt is seen and examined at bed side , looking comfortable agreed all above , chart , meds and labs noted , happy to go home . meds at bed side . will f/u as pt
== END 2017-08-08 10:45 | disposition home or self-care (01) | DRG 194 ==
LOC: TRCU 18:09
PROVIDERS: ADMIT Internal Medicine; ATTEND Internal Medicine
PROC: F07L6YZ Therapeutic Exercise Treatment of Musculoskeletal System - Lower Back / Lower Extremity using Other Equipment (ICD-10-PCS; 2017-08-04)
PROC: F07Z9ZZ Gait Training/Functional Ambulation Treatment (ICD-10-PCS; principal; 2017-08-05)
PROC: F08Z2ZZ Grooming/Personal Hygiene Treatment (ICD-10-PCS; 2017-08-07)
PROC: F08Z1ZZ Dressing Techniques Treatment (ICD-10-PCS; 2017-08-07)
DX: J18.9 Pneumonia, unspecified organism (principal); J44.0 Chronic obstructive pulmonary disease with (acute) lower respiratory infection; J98.11 Atelectasis; K56.609 Unspecified intestinal obstruction, unspecified as to partial versus complete obstruction; D50.9 Iron deficiency anemia, unspecified; E78.00 Pure hypercholesterolemia, unspecified; E11.9 Type 2 diabetes mellitus without complications; I25.10 Atherosclerotic heart disease of native coronary artery without angina pectoris; I10 Essential (primary) hypertension; E78.5 Hyperlipidemia, unspecified; G89.29 Other chronic pain; M54.9 Dorsalgia, unspecified; G47.33 Obstructive sleep apnea (adult) (pediatric); M19.90 Unspecified osteoarthritis, unspecified site; K57.90 Diverticulosis of intestine, part unspecified, without perforation or abscess without bleeding; Z87.11 Personal history of peptic ulcer disease; Z90.49 Acquired absence of other specified parts of digestive tract; Z95.5 Presence of coronary angioplasty implant and graft

== ENCOUNTER 2017-08-28 08:21 | Inpatient (IN) | payer MEDICARE, MEDICAID ==
[2017-08-28 08:51] VITALS: BMI 17.2
--- NOTE | 2017-08-28 08:58 | ED PDOC ---
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 Patient reports bleeding is bright red, and is associated with burning sensation. Patient denies any fever, abdominal pain, dizziness, syncope, or any other complaints at this time. PMD: Dr. Ramirez Symptom Onset: Sudden Symptom Course: Unchanged Quality: Burning Past Medical History - Provider Review Nursing Documentation Reviewed: Yes - Infectious Disease Hx of Infectious Diseases: None - Tetanus Immunization Tetanus Immunization: Unknown - Cardiac Hx Hypertension: Yes - Pulmonary Hx Respiratory Disorders: No - Neurological Hx Dizziness: Yes - HEENT Hx Cataracts: Yes (b/l sx) - Renal Hx Kidney Stones: No - Endocrine/Metabolic Hx Diabetes Mellitus Type 2: Yes - Hematological/Oncological Hx Anemia: Yes - Integumentary Other/Comment: ble skin discoloration, llq abd ddressings x2 dry and intact over i&d site - Musculoskeletal/Rheumatological Hx Arthritis: Yes (spine) - Gastrointestinal Hx Gastrointestinal Disorders: Yes (hiatal hernia, gi bleed) - Genitourinary/Gynecological Hx Genitourinary Disorders: No - Psychiatric Hx Psychophysiologic Disorder: No Hx Substance Use: No - Surgical History Other/Comment: s/p abdominla surgery with mesh placement - Anesthesia Hx Anesthesia Reactions: No Hx Malignant Hyperthermia: No - Suicidal Assessment Feels Threatened In Home Enviroment: No Family/Social History - Physician Review Nursing Documentation Reviewed: Yes Family/Social History: No Known Family HX Smoking Status: Never Smoked Hx Alcohol Use: No Hx Substance Use: No Hx Substance Use Treatment: No Allergies/Home Meds Allergies/Adverse Reactions: Allergies No Known Allergies Allergy (Verified 08/04/17 21:40) Home Medications: Home Meds Medication Instructions Recorded Confirmed Lisinopril [Zestril] 10 mg PO DAILY 12/18/15 08/28/17 Multivit,Iron,Min 5/Folic Acid 1 each PO DAILY 11/30/16 08/28/17 [Strovite Forte Caplet] Mpivm-8-Lust Ethyl Esters [OMEGA 3] 500 mg PO BID 11/30/16 08/28/17 Ranitidine HCl [Acid Gauge And Weigh Machine Operator] 150 mg PO BID 11/30/16 08/28/17 amLODIPine [Norvasc] 10 mg PO DAILY 11/30/16 08/28/17 Atorvastatin [Lipitor] 20 mg PO DAILY 12/24/16 08/28/17 Bisacodyl [Dulcolax] 5 mg RC BID 08/28/17 08/28/17 Cyproheptadine [Periactin] 4 mg PO TID 08/28/17 08/28/17 Famotidine [Pepcid] 20 mg PO BID 08/28/17 08/28/17 Levothyroxine [Synthroid] 25 mcg PO BID 08/28/17 08/28/17 Review of Systems - Physician Review All systems were reviewed & negative as marked: Yes - Review of Systems Constitutional: absent: Fevers Cardiovascular: absent: Syncope Gastrointestinal: Other (rectal bleeding (bright red) and is associated with burning sensation). absent: Abdominal Pain Neurological: absent: Dizziness Physical Exam - Physical Exam Narrative Physical Exam (Text): Constitutional: No acute distress. Head: Normocephalic. Atraumatic. Eyes: PERRL. ENT: Moist mucous membranes. Neck: Supple. Cardiovascular: Regular rate. Chest: No tenderness. Respiratory: Clear to auscultation bilaterally. GI: Suprapubic tenderness. Back: No CVA tenderness. Musculoskeletal: No tenderness or swelling of extremities. Skin: No rash. Neurologic: Alert, no focal deficit. Rectal exam: external hemorrhoid, no active bleeding, brown stool, guaiac positive. Vital Signs Temp Pulse Resp BP Pulse Ox 08/28/17 10:41 76 18 138/81 99 08/28/17 10:04 65 18 110/49 L 100 08/28/17 08:41 97.4 F L 80 18 110/45 L 100 08/28/17 08:22 97.5 F L 74 19 100/45 L 100 Medical Decision Making ED Course and Treatment: 08/28/17 08:46 Impression: 81 year old male with rectal bleeding. Physical exam shows suprapubic tenderness; rectal: external hemorrhoid, no active bleeding, brown stool, guaiac positive. Plan: -- EKG -- Chest X-ray -- Abd/Pelvis CT -- Labs -- Blood Culture -- Urine Culture -- Urinalysis -- Reassess and disposition Prior Visits: Notes and results from previous visits were reviewed. Patient was last seen in the emergency department on 07/28/2017 for dizziness. Patient was admitted. Progress Notes: EKG: Ordered, reviewed, and independently interpreted the EKG. Rate : 70 BPM Rhythm : NSR Interpretation : No ST elevations and no T-wave inversions. Comparison : No previous EKG for comparison. 08/28/2017 09:02 Chest X-ray IMPRESSION: No active disease. Dictator: Cordell Dolan MD 08/28/2017 11:07 Abd/Pelvis CT IMPRESSION: Chronic constipation with fecal impaction. No acute intra abdominal findings. Dictator: Cordell Dolan MD - Lab Interpretations Lab Results: 08/28/17 08:50 08/28/17 08:50 Lab Results 08/28/17 09:24: POC Glucose (mg/dL) 135 H 08/28/17 08:50: Blood Type A POSITIVE, Antibody Screen Negative, BBK History Checked Patient has bt 08/28/17 08:50: Sodium 133, Potassium 4.4, Chloride 100, Carbon Dioxide 22, Anion Gap 15, BUN 23 H, Creatinine 1.0, Est GFR ( Amer) > 60, Est GFR ( Non-Af Amer) > 60, Random Glucose 144 H, Calcium 9.1, Total Bilirubin 0.2, AST 23, ALT 31, Alkaline Phosphatase 73, Total Creatine Kinase 44, Troponin I < 0.01 , Total Protein 6.4, Albumin 3.2, Globulin 3.2, Albumin/Globulin Ratio 1.0 L, Lipase 64 08/28/17 08:50: PT 12.6 H, INR 1.09 H, APTT 25.4 08/28/17 08:50: WBC 10.3 D, RBC 3.13 L, Hgb 10.3 L, Hct 29.6 L, MCV 94.6, MCH 32.9, MCHC 34.8, RDW 14.9 H, Plt Count 284, MPV 9.0, Gran % 81.1 H, Lymph % ( Auto) 11.0 L, [place] % (Auto) 6.4 H, Eos % (Auto) 1.3 L, Baso % (Auto) 0.2, Gran # 8.31 H, Lymph # (Auto) 1.1 L, [place] # (Auto) 0.7 H, Eos # (Auto) 0.1, Baso # ( Auto) 0.02 I have reviewed the lab results: Yes - RAD Interpretation Radiology Orders: 08/28/17 08:46 ABD & PELVIS IV CONTRAST ONLY [CT] Stat CHEST PORTABLE [RAD] Stat - Scribe Statement The provider has reviewed the documentation as recorded by the Ashley Kim Provider Scribe Attestation: All medical record entries made by the Scribe were at my direction and personally dictated by me. I have reviewed the chart and agree that the record accurately reflects my personal performance of the history, physical exam, medical decision making, and the department course for this patient. I have also personally directed, reviewed, and agree with the discharge instructions and disposition. Disposition/Present on Arrival - Present on Arrival Any Indicators Present on Arrival: No History of DVT/PE: No History of Uncontrolled Diabetes: No Urinary Catheter: No History Surgical Site Infection Followin - Disposition Have Diagnosis and Disposition been Completed?: Yes Diagnosis: GI bleed Disposition: HOSPITALIZED Disposition Time: 11:08 Patient Plan: Admission, Telemetry Condition: GUARDED Referrals: Hannah Ramirez MD [Primary Care Provider] - Follow up with primary
--- NOTE | 2017-08-28 09:04 | RAD ---
HISTORY: gi bleed COMPARISON: 07/28/2017 FINDINGS: LUNGS: No active pulmonary disease. PLEURA: No significant pleural effusion identified, no pneumothorax apparent. CARDIOVASCULAR: Normal. OSSEOUS STRUCTURES: No significant abnormalities. VISUALIZED UPPER ABDOMEN: Normal. OTHER FINDINGS: None. IMPRESSION: No active disease.
[2017-08-28 09:36] LABS: BASO # 0.02 K/mm3 (0.0-2.0); BASO % 0.2 % (0.0-3.0); EOS # 0.1 (0.0-0.7); EOS % 1.3 % (1.5-5.0); GRAN # 8.31 (1.4-6.5); GRAN % 81.1 % (50.0-68.0); HEMOGLOBIN 10.3 g/dL (14.0-18.0); LYMPH # 1.1 (1.2-3.4); MEAN CELL VOLUME 94.6 fl (80.0-105.0); MEAN CORPUSCULAR HEMOGLOBIN 32.9 pg (25.0-35.0); MEAN CORPUSCULAR HGB CONC 34.8 g/dl (31.0-37.0); MONO # 0.7 (0.1-0.6); MONO % 6.4 % (1.0-6.0); RBC 3.13 10^6/uL (3.5-6.1); RED CELL DISTRIBUTION WIDTH 14.9 % (11.5-14.5); WHITE BLOOD COUNT 10.3 10^3/ul (4.5-11.0)
[2017-08-28 09:44] LABS: INR 1.09 (0.93-1.08); PROTHROMBIN TIME 12.6 SECONDS (9.4-12.5)
[2017-08-28 09:45] LABS: PARTIAL THROMBOPLASTIN TIME 25.4 Seconds (25.1-36.5)
[2017-08-28 09:46] LABS: ALBUMIN 3.2 g/dL (3.0-4.8); ALT/SGPT 31 U/L (7-56); AST/SGOT 23 U/L (17-59); BLOOD UREA NITROGEN 23 mg/dL (7-21); CALCIUM 9.1 mg/dL (8.4-10.5); GFR AFRICAN-AMERICAN > 60; GFR NON-AFRICAN AMERICAN > 60; LIPASE 64 U/L (23-300)
[2017-08-28 09:55] LABS: TROPONIN I < 0.01 ng/mL
[2017-08-28] MEDS ORDERED: Iohexol 350 MG/100 ML VIAL ONE (10:01)
--- NOTE | 2017-08-28 11:08 | CT ---
PROCEDURE: CT Abdomen and Pelvis with contrast HISTORY: gi bleed COMPARISON: CT 07/28/2017 TECHNIQUE: Contrast dose: 100 cc of Omni 350 Radiation dose: Total exam DLP = 200 mGy-cm. This CT exam was performed using one or more of the following dose reduction techniques: Automated exposure control, adjustment of the mA and/or kV according to patient size, and/or use of iterative reconstruction technique. FINDINGS: LOWER THORAX: Unremarkable. LIVER: Unremarkable. No gross lesion or ductal dilatation. GALLBLADDER AND BILE DUCTS: Unremarkable. PANCREAS: Unremarkable. No gross lesion or ductal dilatation. SPLEEN: Unremarkable. ADRENALS: Unremarkable. No mass. KIDNEYS AND URETERS: Unremarkable. No hydronephrosis. No solid mass. VASCULATURE: The SMA is patent. 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 Calcified plaques are seen throughout the aorta. The renal arteries are patent. BOWEL: There is chronic constipation with fecal impaction. There is a 2 cm diverticulum arising from the anterior surface of the rectum on the right side. Image 137 series 3. This can be seen previously APPENDIX: Normal appendix. PERITONEUM: Unremarkable. No free fluid. No free air. LYMPH NODES: Unremarkable. No enlarged lymph nodes. BLADDER: Unremarkable. REPRODUCTIVE: Unremarkable. BONES: No acute fracture. OTHER FINDINGS: None. IMPRESSION: Chronic constipation with fecal impaction. No acute intra abdominal findings
[2017-08-28] MEDS ORDERED: Influenza Vaccine 60 mcg/0.5 mL SYR (4YR UP) IM ONE (14:32)
[2017-08-28] MEDS ORDERED: Pneumococcal 23-Valent Vaccine IM ONE (14:32)
[2017-08-28] MEDS ORDERED: Sodium Chloride 0.9% 1,000 ML IV STA (19:11)
--- NOTE | 2017-08-28 19:35 | PCM.RRT ---
<Georgina Yusuf - Last Filed: 08/28/17 20:12> TRANSPORTATION ECONOMICS TEACHER Nurse Assessment - Situation Date: 08/28/17 Time TRANSPORTATION ECONOMICS TEACHER was called: 18:51 TRANSPORTATION ECONOM[employer] TEACHER Responder Arrival Time: 18:53 TRANSPORTATION ECONOM[employer] TEACHER Location:: [address] [place] [address] Room Number: [id number] TRANSPORTATION ECONOM[employer] TEACHER Reason for Call: Looks Sicker TRANSPORTATION ECONOMICS TEACHER Called By: Other Disciplines - IV IV Inserted during TRANSPORTATION ECONOMICS TEACHER?: No - Respiratory Oxygen Delivery Method: Room Air Received Nebulizer Treatments:: No Was the Patient Ventilated with Bag/Mask 100% O2?: No Secretions Suctioned?: No Was the Patient Intubated?: No Was the Patient Placed on a Ventilator?: No - Diagnostic Test Ordered EKG: Yes Chest X-Ray: No CT Scan: No Other Diagnostic Test Ordered: bleeding scan NM - Stat Labs Ordered TRANSPORTATION ECONOMICS TEACHER Stat Labs Ordered: CBC TRANSPORTATION ECONOMICS TEACHER Other Labs Ordered: type&cross CPR started during TRANSPORTATION ECONOMICS TEACHER?: No - Vital Signs Vital Sign: Rapid Response Vital Sign Blood Pressure 105/62 Pulse Rate 75 Respiratory Rate 20 Temperature 98.4 F Oxygen Saturation 98 - Finger Stick Blood Glucose Finger Stick Blood Glucose: 141 - [place] Coma Scale Coma Scale Eye Opening: Spontaneous Coma Scale Motor: Obeys Commands Movement Coma Scale Verbal: Oriented - Time TRANSPORTATION ECONOMICS TEACHER Ended Time TRANSPORTATION ECONOMICS TEACHER Ended: 19:10 - Vital Signs at end of TRANSPORTATION ECONOMICS TEACHER Vital Signs at end of TRANSPORTATION ECONOMICS TEACHER: Rapid Response End Vital Sign Blood Pressure 105/55 Pulse Rate 75 Respiratory Rate 18 Temperature 98.4 F O2 Sat by Pulse Oximetry 98 - Recommendations Notifications: Attending Physician, Consultations, Family or Designated Caregiver I.Reason for TRANSPORTATION ECONOMICS TEACHER - A) Acute Change in Patient: (Select all that apply): Staff member or family is worried about patient Subjective: Patient is a 81 y/o with PMHx of arthritis, CAD s/p 2 stents, hypertension, hyperlipidemia, 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 TRANSPORTATION ECONOMICS TEACHER was called after large clots of blood was found around the rectal region and the bed sheet. Upon evaluation, patient doesn't appear to be in distress, states he was having rectal pain, deneis cp, sob, n&v or diarrhea. SBP was in the 100s, which was better than when patient was admitted with HR in the 60s. Patient's GI Dr Osorio was contacted, recommended bleeding scan, stat CBC. Dr Farrar was also alerted. Upon reviewing chart, PT had egd and colonoscopy last year revealing Clements esophagus, clean ulcer, diverticulosis and internal hemorrhoids. CT on this admission revealed chronic constipation with fecal impaction. - Neurological Status (Select all that apply): Alert - Respiratory Oxygen Delivery Method: Room Air - Constitutional Appears: No Acute Distress, Older Than Stated Age, Cachectic, Chronically Ill - Head Head Exam: ATRAUMATIC - Eyes Eye Exam: EOMI. absent: Scleral icterus - Respiratory Exam Respiratory Exam: Clear to Ausculation Bilateral, NORMAL BREATHING PATTERN. absent: Rales, Rhonchi, Wheezes, Respiratory Distress, Stridor - Cardiovascular Exam Cardiovascular Exam: REGULAR RHYTHM, +S1, +S2. absent: Bradycardia, Tachycardia - GI/Abdominal Exam GI & Abdominal Exam: Distended, Firm, Soft, Normal Bowel Sounds. absent: Guarding, Rigid, Tenderness - Neurological Exam Neurological Exam: Alert, Awake, Oriented x3 - Extremities Exam Extremities Exam: Full ROM, Normal Capillary Refill, Normal Inspection. absent : Pedal Edema Additional comments: Rectal: large blood clots at the rectal meatus, + external hemorrhoids appeared to be the culprit, tender to palpation. Plan - Assessment of Findings&Treatment Plan - Will obtain bleeding scan as per GI. - Will obtain stat cbc, type and cross match, ekg. - Insert Douglas due to urinary retention - Will give a litter bolus of ns and start NS@100 cc/hr. - Will start protonix 40 mg bid - Will follow up h/h and transfuse if acute drop in hgb, will also hold off icu evaluation, consult ICU if there's any acute drop in hgb. Patient seen, examined and case discussed with Dr Vargas. Dr Farrar and Dr Osorio were also alerted. <Ellis Vargas - Last Filed: 08/28/17 22:28> TRANSPORTATION E[employer]OM[employer] TEACHER Nurse Assessment - Vital Signs Vital Sign: Rapid Response Vital Sign Blood Pressure 105/62 Pulse Rate 75 Respiratory Rate 20 Temperature 98.4 F Oxygen Saturation 98 - Vital Signs at end of TRANSPORTATION ECONOMICS TEACHER Vital Signs at end of TRANSPORTATION ECONOMICS TEACHER: Rapid Response End Vital Sign Blood Pressure 105/55 Pulse Rate 75 Respiratory Rate 18 Temperature 98.4 F O2 Sat by Pulse Oximetry 98 Attending/Attestation - Attestation I have personally seen and examined this patient.: Yes I have fully participated in the care of the patient.: Yes I have reviewed all pertinent clinical information, including history, physical exam and plan: Yes
[2017-08-28 19:47] LABS: BASO # 0.02 K/mm3 (0.0-2.0); BASO % 0.2 % (0.0-3.0); EOS # 0.3 (0.0-0.7); EOS % 2.7 % (1.5-5.0); GRAN # 6.77 (1.4-6.5); GRAN % 70.8 % (50.0-68.0); HEMOGLOBIN 10.8 g/dL (14.0-18.0); LYMPH # 1.9 (1.2-3.4); LYMPH % 19.5 % (22.0-35.0); MEAN CELL VOLUME 95.8 fl (80.0-105.0); MEAN CORPUSCULAR HEMOGLOBIN 32.7 pg (25.0-35.0); MEAN CORPUSCULAR HGB CONC 34.2 g/dl (31.0-37.0); MONO # 0.7 (0.1-0.6); MONO % 6.8 % (1.0-6.0); RBC 3.3 10^6/uL (3.5-6.1); RED CELL DISTRIBUTION WIDTH 15.1 % (11.5-14.5); WHITE BLOOD COUNT 9.6 10^3/ul (4.5-11.0)
--- NOTE | 2017-08-28 23:32 | NM ---
EXAM: NM GI Bleeding Scan CLINICAL HISTORY: 81 years old, male; Signs and symptoms; Symptoms: Active blleding; Additional info: Rectal bleeding TECHNIQUE: Frontal images of the abdomen and pelvis were obtained over 60 minutes following the intravenous administration of 30.0 mCi Kc83h-bcohxyse red blood cells. COMPARISON: No relevant prior studies available. FINDINGS: Stomach and bowel: Unremarkable. No active GI bleeding. IMPRESSION: No active GI bleeding.
[2017-08-28] MEDS: Sodium Chloride 0.9% 1,000 ML IV SCH (23:51)
--- NOTE | 2017-08-29 04:35 | CON ---
DATE: 08/28/2017 PULMONARY CONSULTATION REFERRING PHYSICIAN: Hannah Ramirez MD. REASON FOR CONSULTATION: Chronic lung disease, constipation, bladder outlet obstruction, also has rectal bleeding. HISTORY OF PRESENT ILLNESS: This is a 81-year-old gentleman, known to me from previous admission. He has a history of chronic lung disease, coronary artery disease, history of coronary stent, hypertension, hyperlipidemia, history of laparotomy with hemicolectomy, recurrent constipation, bladder outlet obstruction. He apparently came in with rectal bleed, had constipation, also did not urinate for 2 days or so. No chest pain. No dysuria. No leg pain. No leg swelling. PAST MEDICAL HISTORY: As per history of present illness. FAMILY HISTORY: No significant cardiopulmonary diseases are reported. SOCIAL HISTORY: Nonsmoker, nondrinker. ALLERGIES: NONE KNOWN. MEDICATIONS: Lipitor 20 mg daily, Protonix 40 mg twice a day, IV fluid normal saline 100 mL/hour, also on amlodipine 10 mg daily, MiraLax 17 g twice a day, Brothers-3 500 mg twice a day, Zestril 10 mg daily, Synthroid 25 mcg daily, Periactin 4 mg 3 times a day, Dulcolax twice a day, Lipitor 20 mg daily. REVIEW OF SYSTEMS: No headache, no rhinitis, not much cough. Could not sleep well last night. No chest pain. No nausea. Has a suprapubic discomfort. No urine output for 2 days. Also has some rectal bleed. No leg pain or leg swelling. PHYSICAL EXAMINATION: GENERAL: Lying in the bed, mild distress. VITAL SIGNS: Temperature 98, heart rate 98, respiratory rate 20, blood pressure 105/62, pulse ox 98% on room air. HEENT: Moist mucous membrane. Small oral cavity. Crowded airway. NECK: Supple. No JVD. LUNGS: Few scattered rhonchi. HEART: S1 and S2. ABDOMEN: Positive bowel sounds, suprapubic area distended. Has rectal bleed. EXTREMITIES: There is no edema. NEUROLOGIC: Awake, alert. Follows simple command. LABORATORY DATA: Hemoglobin 10.8, hematocrit 31.6, WBC 9.6, platelets 306, INR 1.09, PTT 25. Sodium , potassium 4.4, chloride 100, bicarbonate 22, BUN 23, creatinine 1.0, glucose 135, calcium 9.1. Total bilirubin 0.2, AST 23, ALT 31, alkaline phosphatase 73. Troponin is less than 0.01. Albumin 3.2, lipase is 64. IMPRESSION AND PLAN: Recurrent bowel obstruction, history of laparotomy secondary to adhesion, recurrent intestinal obstruction, history of hemicolectomy, coronary artery disease, hypertension, hyperlipidemia, chronic lung disease, may have sleep apnea syndrome, insomnia, gastrointestinal bleed, bladder outlet obstruction. Spoke to nursing staff, requested to put the Douglas catheter in. I received call from the house physician. After my examination, patient had some more blood clot per rectum. So IV fluid normal saline will be started. GI consult and Surgical consult have been called. We will get bleeding scan. Follow up hemoglobin and hematocrit, keep head at 45 degree, bronchodilators. Presently hemodynamically stable; H and H is okay. If there is any instability, may need to transfer to intensive care unit. Thank you and we will follow with you. Dakotah Farrar MD
[2017-08-29 06:27] LABS: HEMOGLOBIN 9.2 g/dL (14.0-18.0); MEAN CELL VOLUME 96.7 fl (80.0-105.0); MEAN CORPUSCULAR HEMOGLOBIN 33.9 pg (25.0-35.0); MEAN CORPUSCULAR HGB CONC 35.1 g/dl (31.0-37.0); MEAN PLATELET VOLUME 9.1 fl (7.0-11.0); RBC 2.71 10^6/uL (3.5-6.1); RED CELL DISTRIBUTION WIDTH 15.3 % (11.5-14.5)
[2017-08-29 06:57] LABS: ALB/GLOB RATIO 0.9 (1.1-1.8); ALBUMIN 2.7 g/dL (3.0-4.8); ALT/SGPT 21 U/L (7-56); AST/SGOT 18 U/L (17-59); BLOOD UREA NITROGEN 22 mg/dL (7-21); CALCIUM 8.7 mg/dL (8.4-10.5); GFR AFRICAN-AMERICAN > 60; GFR NON-AFRICAN AMERICAN > 60; HDL CHOLESTEROL 37 mg/dL (29-60)
[2017-08-29 07:03] LABS: IRON 39 ug/dL (45-180)
[2017-08-29 07:12] LABS: % IRON SATURATION 21 % (20-55); TOTAL IRON BINDING CAPACITY 190 ug/dL (261-462)
[2017-08-29 07:41] LABS: LDL CHOLESTEROL < 30 mg/dL (0-129)
--- NOTE | 2017-08-29 09:02 | CON ---
DATE: 08/28/2017 REASON FOR CONSULTATION: Bleeding per rectum. HISTORY OF PRESENT ILLNESS: This is a 81-year-old patient with a past medical history of coronary artery disease, status post PCI stent placement, diabetes mellitus, hypertension, history of colon resection, removal of the infected mesh, inguinal hernia repair, presented to the emergency room with complaints of bleeding per rectum, bright red blood per rectum, and also burning sensation. The patient was not able to void urine in the hospital, was placed on Douglas catheter. The patient had a CT scan of the abdomen and pelvis done in the emergency room and he was found to have fecal impaction with large amount of stool present in the rectum. There was also found to have a diverticulum in the rectum. The patient had a large amount of bleeding bright red blood with clots. Rapid response was called. Hemodynamically, the patient remains stable and repeat hemoglobin showed hemoglobin was 10.8, stable. The patient was in the Nuclear Medicine when he was evaluated. No vomiting blood. The patient did have an endoscopy and a colonoscopy done in December. Colonoscopy revealed large amount of diverticula and extensive diverticulosis present, and also a rectal diverticulum noted. Moderate extensive hemorrhoids noted. The upper GI endoscopy done in March revealed healed ulcers in the duodenum. PAST MEDICAL HISTORY: Other past medical history significant for hypertension, cataract surgery, diabetes mellitus, and hypothyroidism. FAMILY HISTORY: Noncontributory. SOCIAL HISTORY: Denies smoking or alcohol. ALLERGIES: NO KNOWN DRUG ALLERGIES. REVIEW OF SYSTEMS: Positive as above. Other symptoms reviewed are negative. PHYSICAL EXAMINATION: GENERAL: The patient is lying on the bed, not in acute distress. VITAL SIGNS: Temperature is 97, blood pressure 99/59, respirations 18, O2 saturations 98%. HEENT: Atraumatic and anicteric. NECK: Supple. HEART: S1 and S2 heard. LUNGS: Bilateral air entry present. ABDOMEN: Soft. There was no tenderness. The patient has a Douglas catheter. Douglas catheter in place. EXTREMITIES: No cyanosis. No clubbing. NEUROLOGIC: Alert and oriented. Moves all the extremities. LABORATORY DATA: Hemoglobin initially was 10.3 and repeat one was 10.8; WBC count 10.3, repeat count was 9.6; platelet count is normal 306. Chemistry is essentially unremarkable except his iron studies show saturation is low at 12%. IMPRESSION: This 81-year-old patient was admitted with rectal bleeding. CT scan of the abdomen and pelvis reviewed. There is large amount of stool present in the rectum and also rectal wall thickening noticed. RECOMMENDATIONS: 1. Followup of the nuclear scan, bleeding, to localize the site of the bleeding. 2. Followup of the hemoglobin and hematocrit and transfuse as needed. 3. We will follow up. 4. The patient may benefit from the flexible sigmoidoscopy examination if he continues to have pain, continues to have the bleeding, or if he develops bleeding. Thank you very much for allowing us to participate in the care of the patient. Hernan Osorio MD
--- NOTE | 2017-08-29 09:21 | HP ---
CHIEF COMPLAINT: Rectal bleeding, feeling fatigue and tired. HISTORY OF PRESENT ILLNESS: The patient is a 81-year-old male with past medical history of arthritis, pulmonary artery disease, status post 2 cardiac stents, hypertension, hypercholesterolemia, COPD, history of infected mesh and enterocutaneous fistula status post colon resection, came to the Emergency Room department complaining of rectal bleeding. The patient reports bleeding is bright red and associated with burning sensation in the rectal area and area is tender. No fever. No abdominal pain. No nausea or vomiting. No headache. No dizziness. I saw the patient in the emergency room. Discussion done with the ER physician. PAST MEDICAL HISTORY: Hypertension, dizziness, history of cataract surgery, diabetes mellitus, hiatal hernia, history of GI bleeding, status post abdominal surgery with mesh replacement. FAMILY HISTORY: Father and mother, noncontributory. HABITS: Never smoked. No drug. No ethanol. ALLERGIES: THE PATIENT IS NOT ALLERGIC WITH ANY MEDICATIONS. HOME MEDICATIONS: Zestril, multivitamins, omega, loratadine, Norvasc, Lipitor, bisacodyl, cyproheptadine, famotidine, and levothyroxine. REVIEW OF SYSTEMS: The patient seen and examined on the bedside in the ER. Complaining about rectal bleeding and burning in that area and tenderness. No syncope. No fever. No abdominal pain. Feeling fatigue and tired. No dizziness. No coughing. No dyspnea. PHYSICAL EXAMINATION: VITAL SIGNS: Temperature 97.4, pulse 80, respiratory rate 18, blood pressure 110/45, pulse oximetry 100. HEENT: Head is normocephalic and atraumatic. Eyes, PERRLA. Extraocular movements are intact. Conjunctivae are clear. Nose is patent. Mucous membranes are moist. NECK: Supple. No carotid bruit, JVD or thyromegaly. CHEST: Bilaterally symmetrical. HEART: S1 and S2 positive. LUNGS: Clear to auscultation. ABDOMEN: Soft. Bowel sounds present. No organomegaly. EXTREMITIES: No edema. No cyanosis. NEUROLOGIC: The patient is awake, alert, moving all 4 extremities. No focal deficits. LABORATORY DATA: White blood cell 10.3, hemoglobin 10.3, hematocrit 29.6, platelets 284. Sodium 133, potassium 4.4, BUN 23, creatinine 1.0, and glucose 144. ASSESSMENT AND PLAN: The patient is a 81-year-old male with anemia, hyperglycemia, increased BUN, came with rectal bleeding, it is fresh and has clots, rectal tenderness, hemorrhoids, history of constipation, arthritis, coronary artery disease, status post 2 cardiac stents, hypertension, hypercholesterolemia, history of infected mesh and enterocutaneous fistula status post colon resection. The patient was admitted. GI consult called, Dr. Osorio. Spoke with Dr. Osorio, he ordered bleeding scan. There was rapid response at 19:35 due to the patient's sickness. Reviewed all notes. scanes of abdomen and pelvis done, reviewed by me. Discussion done with Dr. Osorio. According to him, may be due to constipation as there is rectal bleeding. He will give GoLYTELY and will monitor hemoglobin and hematocrit. We will follow up. Hannah Ramirez MD [facility]
[2017-08-29] MEDS ORDERED: Peg-Electrolyte Oral Soln 4L (Golytely) PO ONE (10:07)
--- NOTE | 2017-08-29 10:21 | CARD ---
APPROVED REPORT EKG Measurement Heart [id number] <Conclusion> Normal sinus rhythm Low voltage QRS limb leads Electrical artifact V 1, 2 Probably no change
[2017-08-29] MEDS: Sodium Chloride 0.9% 1,000 ML IV SCH ×2 (10:45→23:32)
--- NOTE | 2017-08-29 12:19 | CP.PCM.PN ---
Subjective - Date & Time of Evaluation Date of Evaluation: 08/29/17 Time of Evaluation: 10:30 - Subjective Subjective: GI Progress Note - Dr. Osorio Pt was seen and examined at bedside with nurse present. Pt has complaints of rectal pain and urinary discomfort. Pt tolerated diet this morning. He has been passing clots, and oozing from rectum. As per nursing staff, a rapid response was called yesterday for similar episode. Pt denied fever, chills, sob, chest pains, abdominal pains, nausea, or vomiting. Objective - Vital Signs/Intake and Output Vital Signs (last 24 hours): Temp Pulse Resp BP Pulse Ox 98.4 F 66 18 104/56 L 97 08/29/17 05:42 08/29/17 05:42 08/29/17 05:42 08/29/17 05:42 08/29/17 05:42 Intake and Output: 08/29/17 08/29/17 06:59 18:59 Intake Total 1700 Output Total 900 Balance 800 - Medications Medications: Current Medications Atorvastatin Calcium (Lipitor) 20 mg PO DAILY [facility] Last Admin: 08/29/17 10:46 Dose: 20 mg Sodium Chloride (Sodium Chloride 0.9%) 1,000 mls @ 100 mls/hr IV .Q10H [facility] Last Admin: 08/29/17 10:45 Dose: 100 mls/hr Pantoprazole Sodium (Protonix Inj) 40 mg IVP Q12 [facility] Last Admin: 08/29/17 10:45 Dose: 40 mg - Labs Labs: 08/29/17 05:30 08/29/17 05:30 PT 12.6 SECONDS (9.4-12.5) H 08/28/17 08:50 INR 1.09 (0.93-1.08) H 08/28/17 08:50 APTT 25.4 Seconds (25.1-36.5) 08/28/17 08:50 - Constitutional Appears: Chronically Ill - Head Exam Head Exam: ATRAUMATIC, NORMAL INSPECTION, NORMOCEPHALIC - Eye Exam Eye Exam: EOMI, Normal appearance, PERRL Pupil Exam: NORMAL ACCOMODATION, PERRL - ENT Exam ENT Exam: Mucous Membranes Dry - Respiratory Exam Respiratory Exam: Clear to Ausculation Bilateral, NORMAL BREATHING PATTERN - Cardiovascular Exam Cardiovascular Exam: REGULAR RHYTHM, +S1, +S2. absent: Murmur - GI/Abdominal Exam GI & Abdominal Exam: Soft, Tenderness (suprapubic), Normal Bowel Sounds - Rectal Exam Rectal Exam: Bloody Stool, Hemorrhoids - Exam Exam: Bladder Distension - Neurological Exam Neurological Exam: Alert, Awake, CN II-XII Intact, Oriented x3 - Psychiatric Exam Psychiatric exam: Normal Affect, Normal Mood - Skin Skin Exam: Dry, Intact, Normal Color, Warm Assessment and Plan - Assessment and Plan (Free Text) Assessment: rectal bleeding external hemorrhoids rectal impaction of stool Rectal Ulcer Esophageal Ulcer duodenal ulcer diverticulosis hx colon resection CAD s/p stent DM Hypothyroidism HTN urinary retention Plan: 2 units pRBCs EGD/Colonoscopy CT abd reviewed demonstrating large amount of stool in rectum with rectal wall thickening Bleeding scan negative Monitor H&H, stable, Fu IVF Douglas in place Go lytely to clear impacted stool causing ulcer PPI CLD Analgesics Discussed with Dr. Osorio
[2017-08-29 12:53] LABS: FOLATE > 20.0 ng/mL
[2017-08-29 12:58] LABS: HEMOGLOBIN 7.8 g/dL (14.0-18.0); MEAN CELL VOLUME 95.4 fl (80.0-105.0); MEAN CORPUSCULAR HEMOGLOBIN 32.4 pg (25.0-35.0); MEAN CORPUSCULAR HGB CONC 33.9 g/dl (31.0-37.0); MEAN PLATELET VOLUME 8.5 fl (7.0-11.0); RBC 2.41 10^6/uL (3.5-6.1); RED CELL DISTRIBUTION WIDTH 15.1 % (11.5-14.5)
--- NOTE | 2017-08-29 15:05 | CP.PCM.CON ---
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 Patient is being consulted by GI for ICU admission. Patient only complain complain is rectal pain which he states is intense. Patient denies any chest pain, shortness of breath, dizziness , abdominal pain or any other complaints at this time. Patient was noted to have two bloody bowel movements earlier today. Patient had abdominal CT scan which showed fecal impaction with chronic constipation, and a bleeding scan was negative for a source of bleeding. PMH: as above PSH: as above Allergies: NKDA Social: no tobacco use previously denies alcohol, or illicit drug use Family: none Meds: zestril, MVI, omega3, loratadine, norvasc, lipitor, bisacodyl, cyproheptadine, famotidine, levothyroxine Review of Systems - Constitutional Constitutional: absent: Chills, Fever - EENT Eyes: absent: Blurred Vision, Change in Vision - Cardiovascular Cardiovascular: absent: Chest Pain, Chest Pain at Rest, Diaphoresis, Dyspnea, Dyspnea on Exertion, Lightheadedness, Orthopnea - Respiratory Respiratory: absent: Cough, Dyspnea, Dyspnea on Exertion, Wheezing - Gastrointestinal Gastrointestinal: Other. absent: Abdominal Pain, Constipation, Diarrhea, Nausea , Vomiting Additional comments: blood in bowel movement - Genitourinary Genitourinary: absent: Difficulty Urinating - Musculoskeletal Musculoskeletal: absent: Arthralgias Past Patient History - Infectious Disease Hx of Infectious Diseases: None - Tetanus Immunizations Tetanus Immunization: Unknown - Past Social History Smoking Status: Former Smoker - CARDIAC Hx Hypercholesterolemia: Yes Hx Hypertension: Yes - PULMONARY Hx Respiratory Disorders: Yes Hx Chronic Obstructive Pulmonary Disease (COPD): Yes - NEUROLOGICAL Hx Dizziness: Yes Hx Seizures: (denies) - HEENT Hx Cataracts: Yes (b/l sx) - RENAL Hx Kidney Stones: No - ENDOCRINE/METABOLIC Hx Diabetes Mellitus Type 2: Yes Hx Hypothyroidism: Yes - HEMATOLOGICAL/ONCOLOGICAL Hx Anemia: Yes (blood transfusion) - INTEGUMENTARY Other/Comment: ble skin discolorations, healed abd surgical scars, dry scab to left knee and lump to left scalp from recent fall - MUSCULOSKELETAL/RHEUMATOLOGICAL Hx Arthritis: Yes (spine) Hx Falls: Yes (fell 08/25/2017) Hx Unsteady Gait: Yes (has a walker does not use it) Other/Comment: right great toe points upward - GASTROINTESTINAL Hx Gastrointestinal Disorders: Yes (hiatal hernia, gi bleed) Other/Comment: egd 03/27/17 dx healed duodenal ulcers, weight loss and poor appetite, "sometimes I have abd pain where I had surgery. pt stated - GENITOURINARY/GYNECOLOGICAL Other/Comment: sometimes has problem passing urine since last hospitilization which was beginning of august 2017 - PSYCHIATRIC Hx Psychophysiologic Disorder: No Hx Substance Use: No - SURGICAL HISTORY Hx Coronary Stent: Yes Other/Comment: s/p abdominal surgery with mesh placement, 12/02/2016 exp of groin /laparotomy/sigmoid resection and remioval of foreigh body due to fistula in llq at site of herniorrophy,infected mesh left groin, 8 inches of colon removed - ANESTHESIA Hx Anesthesia Reactions: No Hx Malignant Hyperthermia: No Meds Allergies/Adverse Reactions: Allergies Allergy/AdvReac Type Severity Reaction Status Date / Time No Known Allergies Allergy Verified 08/04/17 21:40 - Medications Medications: Current Medications Atorvastatin Calcium (Lipitor) 20 mg PO DAILY [facility] Last Admin: 08/29/17 10:46 Dose: 20 mg Sodium Chloride (Sodium Chloride 0.9%) 1,000 mls @ 100 mls/hr IV .Q10H [facility] Last Admin: 08/29/17 10:45 Dose: 100 mls/hr Pantoprazole Sodium (Protonix Inj) 40 mg IVP Q12 [facility] Last Admin: 08/29/17 10:45 Dose: 40 mg Physical Exam - Constitutional Appears: Non-toxic, No Acute Distress - Head Exam Head Exam: ATRAUMATIC, NORMAL INSPECTION, NORMOCEPHALIC - Eye Exam Eye Exam: EOMI, Normal appearance - ENT Exam ENT Exam: Mucous Membranes Moist, Normal Exam - Respiratory Exam Respiratory Exam: Clear to Auscultation Bilateral, NORMAL BREATHING PATTERN - Cardiovascular Exam Cardiovascular Exam: REGULAR RHYTHM, +S1, +S2 - GI/Abdominal Exam GI & Abdominal Exam: Normal Bowel Sounds, Soft. absent: Distended, Guarding, Rebound, Rigid, Tenderness - Extremities Exam Extremities exam: Negative for: pedal edema - Neurological Exam Neurological exam: Alert, Oriented x3 Results - Vital Signs Recent Vital Signs: Last Vital Signs Temp 98.8 F 08/29/17 13:45 Pulse 97 H 08/29/17 13:45 Resp 20 08/29/17 13:45 BP 92/48 L 08/29/17 13:45 Pulse Ox 97 08/29/17 05:42 - Labs Result Diagrams: 08/29/17 12:45 08/29/17 05:30 Labs: Laboratory Results - last 24 hr 08/28/17 08/28/17 08/29/17 19:37 19:37 05:30 WBC 9.6 RBC 3.30 L Hgb 10.8 L Hct 31.6 L MCV 95.8 MCH 32.7 MCHC 34.2 RDW 15.1 H Plt Count 306 MPV 9.0 Gran % 70.8 H Lymph % (Auto) 19.5 L [place] % (Auto) 6.8 H Eos % (Auto) 2.7 Baso % (Auto) 0.2 Gran # 6.77 H Lymph # (Auto) 1.9 [place] # (Auto) 0.7 H Eos # (Auto) 0.3 Baso # (Auto) 0.02 Sodium 133 Potassium 4.6 Chloride 104 Carbon Dioxide 23 Anion Gap 11 BUN 22 H Creatinine 1.0 Est GFR ( Amer) > 60 Est GFR (Non-Af Amer) > 60 Random Glucose 91 Hemoglobin A1c Calcium 8.7 Iron TIBC % Saturation Total Bilirubin 0.2 AST 18 ALT 21 Alkaline Phosphatase 54 Total Protein 5.5 L Albumin 2.7 L Globulin 2.9 Albumin/Globulin Ratio 0.9 L Triglycerides 51 Cholesterol 80 L LDL Cholesterol Direct < 30 HDL Cholesterol 37 Vitamin B12 730 Folate > 20.0 TSH 3rd Generation Blood Type A POSITIVE Antibody Screen Negative Crossmatch See Detail BBK History Checked Patient has bt 08/29/17 08/29/17 08/29/17 05:30 05:30 05:30 WBC 8.0 RBC 2.71 L Hgb 9.2 L Hct 26.2 L MCV 96.7 MCH 33.9 MCHC 35.1 RDW 15.3 H Plt Count 283 MPV 9.1 Gran % Lymph % (Auto) [place] % (Auto) Eos % (Auto) Baso % (Auto) Gran # Lymph # (Auto) [place] # (Auto) Eos # (Auto) Baso # (Auto) Sodium Potassium Chloride Carbon Dioxide Anion Gap BUN Creatinine Est GFR ( Amer) Est GFR (Non-Af Amer) Random Glucose Hemoglobin A1c Calcium Iron 39 L TIBC 190 L % Saturation 21 Total Bilirubin AST ALT Alkaline Phosphatase Total Protein Albumin Globulin Albumin/Globulin Ratio Triglycerides Cholesterol LDL Cholesterol Direct HDL Cholesterol Vitamin B12 Folate TSH 3rd Generation 2.86 Blood Type Antibody Screen Crossmatch BBK History Checked 08/29/17 08/29/17 08:00 12:45 WBC 10.0 D RBC 2.41 L Hgb 7.8 L Hct 23.0 L MCV 95.4 MCH 32.4 MCHC 33.9 RDW 15.1 H Plt Count 288 MPV 8.5 Gran % Lymph % (Auto) [place] % (Auto) Eos % (Auto) Baso % (Auto) Gran # Lymph # (Auto) [place] # (Auto) Eos # (Auto) Baso # (Auto) Sodium Potassium Chloride Carbon Dioxide Anion Gap BUN Creatinine Est GFR ( Amer) Est GFR (Non-Af Amer) Random Glucose Hemoglobin A1c 5.7 Calcium Iron TIBC % Saturation Total Bilirubin AST ALT Alkaline Phosphatase Total Protein Albumin Globulin Albumin/Globulin Ratio Triglycerides Cholesterol LDL Cholesterol Direct HDL Cholesterol Vitamin B12 Folate TSH 3rd Generation Blood Type Antibody Screen Crossmatch BBK History Checked Assessment & Plan - Assessment and Plan (Free Text) Assessment: 81 year old male with past medical history of arthritis, pulmonary artery disease, status post 2 cardiac stents, HTN, Hypercholesterolemia, COPD, 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 Patiently currently being transfused blood and will be transferred to ICU for monitoring. Plan: Lower GI bleed external hemorrhoids rectal impaction of stool duodenal ulcer diverticulosis hx colon resection CAD s/p stent DM Hypothyroidism HTN urinary retention CT abd reviewed demonstrating large amount of stool in rectum with rectal wall thickening Bleeding scan negative Transufe 2 units PRBC Monitor H&H IVF Douglas in place PPI CLD Analgesics <Richar Wilburn - Last Filed: 08/29/17 15:21> Meds - Medications Medications: Current Medications Atorvastatin Calcium (Lipitor) 20 mg PO DAILY [facility] Last Admin: 08/29/17 10:46 Dose: 20 mg Sodium Chloride (Sodium Chloride 0.9%) 1,000 mls @ 100 mls/hr IV .Q10H [facility] Last Admin: 08/29/17 10:45 Dose: 100 mls/hr Pantoprazole Sodium (Protonix Inj) 40 mg IVP Q12 [facility] Last Admin: 08/29/17 10:45 Dose: 40 mg Results - Vital Signs Recent Vital Signs: Last Vital Signs Temp 97.8 F 08/29/17 14:45 Pulse 74 08/29/17 14:45 Resp 19 08/29/17 14:45 BP 79/42 L 08/29/17 14:45 Pulse Ox 95 08/29/17 14:45 - Labs Result Diagrams: 08/29/17 12:45 08/29/17 05:30 Labs: Laboratory Results - last 24 hr 08/28/17 08/28/17 08/29/17 19:37 19:37 05:30 WBC 9.6 RBC 3.30 L Hgb 10.8 L Hct 31.6 L MCV 95.8 MCH 32.7 MCHC 34.2 RDW 15.1 H Plt Count 306 MPV 9.0 Gran % 70.8 H Lymph % (Auto) 19.5 L [place] % (Auto) 6.8 H Eos % (Auto) 2.7 Baso % (Auto) 0.2 Gran # 6.77 H Lymph # (Auto) 1.9 [place] # (Auto) 0.7 H Eos # (Auto) 0.3 Baso # (Auto) 0.02 Sodium 133 Potassium 4.6 Chloride 104 Carbon Dioxide 23 Anion Gap 11 BUN 22 H Creatinine 1.0 Est GFR ( Amer) > 60 Est GFR (Non-Af Amer) > 60 Random Glucose 91 Hemoglobin A1c Calcium 8.7 Iron TIBC % Saturation Total Bilirubin 0.2 AST 18 ALT 21 Alkaline Phosphatase 54 Total Protein 5.5 L Albumin 2.7 L Globulin 2.9 Albumin/Globulin Ratio 0.9 L Triglycerides 51 Cholesterol 80 L LDL Cholesterol Direct < 30 HDL Cholesterol 37 Vitamin B12 730 Folate > 20.0 TSH 3rd Generation Blood Type A POSITIVE Antibody Screen Negative Crossmatch See Detail BBK History Checked Patient has bt 08/29/17 08/29/17 08/29/17 05:30 05:30 05:30 WBC 8.0 RBC 2.71 L Hgb 9.2 L Hct 26.2 L MCV 96.7 MCH 33.9 MCHC 35.1 RDW 15.3 H Plt Count 283 MPV 9.1 Gran % Lymph % (Auto) [place] % (Auto) Eos % (Auto) Baso % (Auto) Gran # Lymph # (Auto) [place] # (Auto) Eos # (Auto) Baso # (Auto) Sodium Potassium Chloride Carbon Dioxide Anion Gap BUN Creatinine Est GFR ( Amer) Est GFR (Non-Af Amer) Random Glucose Hemoglobin A1c Calcium Iron 39 L TIBC 190 L % Saturation 21 Total Bilirubin AST ALT Alkaline Phosphatase Total Protein Albumin Globulin Albumin/Globulin Ratio Triglycerides Cholesterol LDL Cholesterol Direct HDL Cholesterol Vitamin B12 Folate TSH 3rd Generation 2.86 Blood Type Antibody Screen Crossmatch BBK History Checked 08/29/17 08/29/17 08:00 12:45 WBC 10.0 D RBC 2.41 L Hgb 7.8 L Hct 23.0 L MCV 95.4 MCH 32.4 MCHC 33.9 RDW 15.1 H Plt Count 288 MPV 8.5 Gran % Lymph % (Auto) [place] % (Auto) Eos % (Auto) Baso % (Auto) Gran # Lymph # (Auto) [place] # (Auto) Eos # (Auto) Baso # (Auto) Sodium Potassium Chloride Carbon Dioxide Anion Gap BUN Creatinine Est GFR ( Amer) Est GFR (Non-Af Amer) Random Glucose Hemoglobin A1c 5.7 Calcium Iron TIBC % Saturation Total Bilirubin AST ALT Alkaline Phosphatase Total Protein Albumin Globulin Albumin/Globulin Ratio Triglycerides Cholesterol LDL Cholesterol Direct HDL Cholesterol Vitamin B12 Folate TSH 3rd Generation Blood Type Antibody Screen Crossmatch BBK History Checked Assessment & Plan - Assessment and Plan (Free Text) Plan: Patient seen and examined with resident, agree with note with following additions/exceptions: Patient is 81yo male with PMHx of CAD with stents, colon resection, HTN, HLD, admitted with lower GIB, rectal bleeding, with negative bleeding scan, CAT A/P done with no evidence of active bleeding. Pt is currently receiving 1u PRBC, BP 135/81, awake, alert, NAD, comfortable with no active bleeding. Lower GIB CAD with stents HTN HLD Hemorrhoids Recommend: - supp o2 as needed - panculture, BCx, UCx, Procal - IVF hydration - transfuse 1u PRBC, monitor HH q6hr CBC - follow up GI - NPO - Hold ASA, Plavix - I/Os - GI ppx - DVT ppx, SCDs - Monitor in MICU
--- NOTE | 2017-08-29 15:12 | CP.PCM.CON ---
History of Present Illness - History of Present Illness History of Present Illness: surgery consult: Dr. Barrera Reason for consult: GI Bleed CC: constipation, bleeding per rectum HPI: Patient is a 81 y/o male w/ sign surgical history for diverticulitis and enterocutaneous fistula s/p sigmoid resection with primary anastomosis presents to hospital complaining of bright red blood per rectum. Patient at time on interview slightly confused on sequence of events. History obtained from prior documentation. Patient currently complains of some mild pain and fullness at rectum. Patient denies abdominal pain, n/v/f/c. He denies SOB or chest pain. Per nursing, since admission patient has had about 4 large bloody bowel movements mostly blood clots. Patient became hypotensive resulting in ELECTRIC DISTRIBUTION ENGINEER being called. Patient with continues dark red blood per rectum. Patient for ICU evaluation. PMH: CAD, DM, Diverticular disease, COPD, HLD, enterocutaneous fistula PSH: left IHR w/ mesh, I&D of left groin abscess, ex lap with sigmoid resection and 1 anastomosis 11/2016 Family Hx; noncontributory NKDA Social: no ETOH, DRUG, or tobacco abuse Review of Systems - Review of Systems Systems not reviewed;Unavailable: Altered Mental Status All systems: reviewed and no additional remarkable complaints except Review of Systems: see HPI Past Patient History - Infectious Disease Hx of Infectious Diseases: None - Tetanus Immunizations Tetanus Immunization: Unknown - Past Social History Smoking Status: Former Smoker - CARDIAC Hx Hypercholesterolemia: Yes Hx Hypertension: Yes - PULMONARY Hx Respiratory Disorders: Yes Hx Chronic Obstructive Pulmonary Disease (COPD): Yes - NEUROLOGICAL Hx Dizziness: Yes Hx Seizures: (denies) - HEENT Hx Cataracts: Yes (b/l sx) - RENAL Hx Kidney Stones: No - ENDOCRINE/METABOLIC Hx Diabetes Mellitus Type 2: Yes Hx Hypothyroidism: Yes - HEMATOLOGICAL/ONCOLOGICAL Hx Anemia: Yes (blood transfusion) - INTEGUMENTARY Other/Comment: ble skin discolorations, healed abd surgical scars, dry scab to left knee and lump to left scalp from recent fall - MUSCULOSKELETAL/RHEUMATOLOGICAL Hx Arthritis: Yes (spine) Hx Falls: Yes (fell 08/25/2017) Hx Unsteady Gait: Yes (has a walker does not use it) Other/Comment: right great toe points upward - GASTROINTESTINAL Hx Gastrointestinal Disorders: Yes (hiatal hernia, gi bleed) Other/Comment: egd 03/27/17 dx healed duodenal ulcers, weight loss and poor appetite, "sometimes I have abd pain where I had surgery. pt stated - GENITOURINARY/GYNECOLOGICAL Other/Comment: sometimes has problem passing urine since last hospitilization which was beginning of august 2017 - PSYCHIATRIC Hx Psychophysiologic Disorder: No Hx Substance Use: No - SURGICAL HISTORY Hx Coronary Stent: Yes Other/Comment: s/p abdominal surgery with mesh placement, 12/02/2016 exp of groin /laparotomy/sigmoid resection and remioval of foreigh body due to fistula in llq at site of herniorrophy,infected mesh left groin, 8 inches of colon removed - ANESTHESIA Hx Anesthesia Reactions: No Hx Malignant Hyperthermia: No Meds Allergies/Adverse Reactions: Allergies Allergy/AdvReac Type Severity Reaction Status Date / Time No Known Allergies Allergy Verified 08/04/17 21:40 - Medications Medications: Current Medications Atorvastatin Calcium (Lipitor) 20 mg PO DAILY [facility] Last Admin: 08/29/17 10:46 Dose: 20 mg Sodium Chloride (Sodium Chloride 0.9%) 1,000 mls @ 100 mls/hr IV .Q10H [facility] Last Admin: 08/29/17 10:45 Dose: 100 mls/hr Pantoprazole Sodium (Protonix Inj) 40 mg IVP Q12 [facility] Last Admin: 08/29/17 10:45 Dose: 40 mg Physical Exam - Constitutional Appears: Confused, Chronically Ill - Head Exam Head Exam: ATRAUMATIC, NORMOCEPHALIC - Eye Exam Eye Exam: EOMI, Normal appearance - ENT Exam ENT Exam: Mucous Membranes Dry - Respiratory Exam Respiratory Exam: NORMAL BREATHING PATTERN. absent: Respiratory Distress - Cardiovascular Exam Cardiovascular Exam: REGULAR RHYTHM. absent: Tachycardia - GI/Abdominal Exam GI & Abdominal Exam: Distended, Soft. absent: Guarding, Hernia, Rebound, Rigid Additional comments: firmness in LLQ, presumed stool impaction - Rectal Exam Rectal Exam: Bloody Stool - Extremities Exam Extremities exam: Positive for: normal inspection. Negative for: calf tenderness - Neurological Exam Neurological exam: Alert, Altered - Psychiatric Exam Psychiatric exam: Flat Affect - Skin Skin Exam: Dry, Pallor, Warm Results - Vital Signs Recent Vital Signs: Last Vital Signs Temp 98.8 F 08/29/17 13:45 Pulse 97 H 08/29/17 13:45 Resp 20 08/29/17 13:45 BP 92/48 L 08/29/17 13:45 Pulse Ox 97 08/29/17 05:42 - Labs Result Diagrams: 08/29/17 12:45 08/29/17 05:30 Labs: Laboratory Results - last 24 hr 08/28/17 08/28/17 08/29/17 19:37 19:37 05:30 WBC 9.6 RBC 3.30 L Hgb 10.8 L Hct 31.6 L MCV 95.8 MCH 32.7 MCHC 34.2 RDW 15.1 H Plt Count 306 MPV 9.0 Gran % 70.8 H Lymph % (Auto) 19.5 L Lawrence % (Auto) 6.8 H Eos % (Auto) 2.7 Baso % (Auto) 0.2 Gran # 6.77 H Lymph # (Auto) 1.9 Lawrence # (Auto) 0.7 H Eos # (Auto) 0.3 Baso # (Auto) 0.02 Sodium 133 Potassium 4.6 Chloride 104 Carbon Dioxide 23 Anion Gap 11 BUN 22 H Creatinine 1.0 Est GFR ( Amer) > 60 Est GFR (Non-Af Amer) > 60 Random Glucose 91 Hemoglobin A1c Calcium 8.7 Iron TIBC % Saturation Total Bilirubin 0.2 AST 18 ALT 21 Alkaline Phosphatase 54 Total Protein 5.5 L Albumin 2.7 L Globulin 2.9 Albumin/Globulin Ratio 0.9 L Triglycerides 51 Cholesterol 80 L LDL Cholesterol Direct < 30 HDL Cholesterol 37 Vitamin B12 730 Folate > 20.0 TSH 3rd Generation Blood Type A POSITIVE Antibody Screen Negative Crossmatch See Detail BBK History Checked Patient has bt 08/29/17 08/29/17 08/29/17 05:30 05:30 05:30 WBC 8.0 RBC 2.71 L Hgb 9.2 L Hct 26.2 L MCV 96.7 MCH 33.9 MCHC 35.1 RDW 15.3 H Plt Count 283 MPV 9.1 Gran % Lymph % (Auto) Lawrence % (Auto) Eos % (Auto) Baso % (Auto) Gran # Lymph # (Auto) Lawrence # (Auto) Eos # (Auto) Baso # (Auto) Sodium Potassium Chloride Carbon Dioxide Anion Gap BUN Creatinine Est GFR ( Amer) Est GFR (Non-Af Amer) Random Glucose Hemoglobin A1c Calcium Iron 39 L TIBC 190 L % Saturation 21 Total Bilirubin AST ALT Alkaline Phosphatase Total Protein Albumin Globulin Albumin/Globulin Ratio Triglycerides Cholesterol LDL Cholesterol Direct HDL Cholesterol Vitamin B12 Folate TSH 3rd Generation 2.86 Blood Type Antibody Screen Crossmatch BBK History Checked 08/29/17 08/29/17 08:00 12:45 WBC 10.0 D RBC 2.41 L Hgb 7.8 L Hct 23.0 L MCV 95.4 MCH 32.4 MCHC 33.9 RDW 15.1 H Plt Count 288 MPV 8.5 Gran % Lymph % (Auto) Lawrence % (Auto) Eos % (Auto) Baso % (Auto) Gran # Lymph # (Auto) Lawrence # (Auto) Eos # (Auto) Baso # (Auto) Sodium Potassium Chloride Carbon Dioxide Anion Gap BUN Creatinine Est GFR ( Amer) Est GFR (Non-Af Amer) Random Glucose Hemoglobin A1c 5.7 Calcium Iron TIBC % Saturation Total Bilirubin AST ALT Alkaline Phosphatase Total Protein Albumin Globulin Albumin/Globulin Ratio Triglycerides Cholesterol LDL Cholesterol Direct HDL Cholesterol Vitamin B12 Folate TSH 3rd Generation Blood Type Antibody Screen Crossmatch BBK History Checked Assessment & Plan - Assessment and Plan (Free Text) Assessment: 81 y/o male hemorrhagic shock 2/2 GI bleed Plan: -vitals improved with blood transfusion, recommend an additional 2 units PRBC -needs ICU monitoring and resuscitation -trend HgB -bleeding scan negative for active bleed -will f/u GI plans regarding endoscopy -pending clinical course determines surgical intervention -discussed with Dr. Bruce Song PGY3 - Date & Time Date: 08/29/17 Time: 15:21
[2017-08-29] MEDS ORDERED: Etomidate 20 mg/10ml Inj IV ONE (17:46)
[2017-08-29] MEDS ORDERED: Albuterol-Ipratrop 3 mg / 0.5 (3 ml) UD IH PRN (18:43)
[2017-08-29] MEDS ORDERED: Morphine 2 mg/ml ISec IVP STA (20:03)
[2017-08-29 21:16] LABS: HEMOGLOBIN 9.7 g/dL (14.0-18.0); MEAN CORPUSCULAR HEMOGLOBIN 31.1 pg (25.0-35.0); MEAN CORPUSCULAR HGB CONC 34.4 g/dl (31.0-37.0); MEAN PLATELET VOLUME 8.8 fl (7.0-11.0); RBC 3.12 10^6/uL (3.5-6.1); RED CELL DISTRIBUTION WIDTH 18.2 % (11.5-14.5)
[2017-08-29 21:19] LABS: MEAN CELL VOLUME 90.4 fl (80.0-105.0)
--- NOTE | 2017-08-29 23:49 | PN ---
DATE: REFERRING PHYSICIAN: Hannah Ramirez M.D. SUBJECTIVE: He is lying in the bed at 45 degrees, could not sleep well last night, receiving packed RBCs. No headache, no rhinitis, gets shortness of breath with exertion. No chest pain. Had a bowel movement with some old blood. No leg pain or leg swelling. Has a Douglas catheter making good urine. OBJECTIVE: GENERAL: No acute distress. VITAL SIGNS: Temperature is 98, heart rate 79, respiratory rate is 12, blood pressure 97/57, pulse of 95% on 3 liters nasal cannula. HEENT: Small oral cavity. Crowded airway. NECK: Supple. No JVD. LUNGS: Has a fair airflow with rhonchi. HEART: S1 and S2. ABDOMEN: Positive bowel sounds. Soft. Has a Douglas catheter. EXTREMITIES: There is no edema. Has external hemorrhoids. NEUROLOGICAL: Awake and follows simple command. MEDICATIONS: He is on Lipitor 20 mg daily, Protonix 40 mg daily, IV fluid normal saline 300 mL/hour. LABORATORY DATA: Shows hemoglobin 7.8, hematocrit 23.0, WBC 10, platelet is 288. Sodium 133, potassium 4.6, chloride 104, bicarbonate is 23, BUN 22, creatinine 1.0, calcium is 8.7. Iron is 39, AST 18, ALT 21, alkaline phosphatase is 54. Albumin is 2.7. Cholesterol is 80. TSH is 2.86. Vitamin B12 730. Folate is more than 20. Microbiology: Blood culture has been negative. Bleeding scan done last night was negative for any active bleed. 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 Blood . Spoke to interactive media marketing specialist. The patient is hemodynamically stable. Getting transfusion. Continue stool softeners. Keep Douglas catheter. May give Ambien 5 mg at bedtime p.r.n. Follow up labs in the morning. Thank you and we will follow with you. Dakotah Farrar MD
--- NOTE | 2017-08-30 01:02 | PN ---
DATE: SUBJECTIVE: The patient is 81-year-old male. The patient was seen and examined at the bedside. At that time, he was going to OR for colonoscopy and endoscopy. Has rectal bleeding. Hemoglobin dropped. Passing clots and oozing from the rectum. As per nursing staff, even Dr. Osorio did examination, he found blood. Rapid response was called yesterday for similar episode. The patient denies fevers, chills, shortness of breath, or chest pain. No nausea or vomiting. Has constipation. PHYSICAL EXAMINATION: VITAL SIGNS: Temperature 98.4, pulse 66, respiratory rate is 18, blood pressure 104/56, pulse oximetry of 97. HEENT: Head: Normocephalic, atraumatic. Eyes: PERRLA. Extraocular muscles intact. Conjunctivae clear. Nose, patent. Mucous membranes moist. NECK: Supple. No carotid bruit. No JVD or thyromegaly. CHEST: Bilaterally symmetrical. HEART: S1 and S2 positive. LUNGS: Clear to auscultation. ABDOMEN: Soft. Bowel sounds present. No organomegaly. EXTREMITIES: No edema, no cyanosis. NEUROLOGIC: The patient is awake, alert, moving all 4 extremities. No focal deficits. MEDICATIONS: Atorvastatin, sodium bicarbonate, pantoprazole. LABORATORY DATA: White blood cell 8.0, hemoglobin 9.2, hematocrit 26.2, and platelets 283. Sodium 133, potassium 4.6, BUN 22, creatinine 1.0, and glucose 91. ASSESSMENT AND PLAN: Mr. Gabriela Page is a 81-year-old male with anemia, acute on chronic, came with gastrointestinal bleeding, fresh rectal blood with clots, external hemorrhoids. Rectal impaction of the stool. Also history of peptic ulcer, duodenal ulcer, diverticulosis, history of colon resection, coronary artery disease, diabetes mellitus, hypothyroidism, urinary retention, got 2 units of packed red blood cells. Plan for esophagogastroduodenoscopy and colonoscopy. Length of time discussion done with Dr. Osorio, the patient's daughter Susan and staff. CAT scan of abdomen reviewed. Large amount of stool in the rectum with rectal wall thickening. Bleeding scan was negative. We are monitoring hemoglobin and hematocrit. Appreciated Dr. Osorio's input. He did esophagogastroduodenoscopy and sigmoidoscopy that shows grade C esophageal ulcer, gastroparesis, rectal ulceration, bleeding. PLAN: Keep the patient on liquid diet. Give medicine for constipation. Monitor H&H. We will follow up. Hannah Ramirez MD MTDD
--- NOTE | 2017-08-30 04:52 | PN ---
DATE: 08/29/2017 SUBJECTIVE: This patient was seen. This patient underwent an EGD today. EGD revealed LA grade C esophagitis extending up to upper side of the esophagus. Patient has large amount of gastric bezoar noticed in the stomach and also short-segment Clements's. Patient subsequently had a flexible sigmoidoscopy, which showed a large stercoral ulceration in the anorectal area and large amount of brown stool present. The scope could not be advanced beyond the rectosigmoid area in view of the large amount of stool present throughout, which has poor visualization. Impression is fecal impaction with stercoral ulceration as most likely the cause. The stool otherwise was mixed with contrast. The stool was brown in color. Small amount of clotted blood noticed. Vital signs: Temperature 97.9, pulse 69, blood pressure 104/52, respiration 98, pulse ox 96 Laboratory reviewed colon L BBC 8.0, hemoglobin 9.2, hematocrit 29.2, platelets 283, sodium 1:30 3K4.6P 122, creatinine is 1.0, iron studies reveal iron to be 39, TIBC 190 which is low, percent saturation 21, LFTs are within normal limits , B12 is 7:30 and folate is greater than 20.0 Physical exam: HEENT sclera is anicteric oral mucosa Neck: Supple Cardiovascular: Positive S1-S2 Lungs: Decreased breath sounds but good air entry, no rales or wheeze Abdomen: With bowel sounds soft nontender no rebound guarding or organomegaly Extremities: Positive pedal pulses no edema, no calf tenderness Neuro: Awake alert and oriented IMPRESSION: 1. Large esophageal ulceration. 2. Severe gastroparesis. We will start high-dose proton pump inhibitor and also MiraLax for clean out of the bowel, would require repeat. Patient will need to be on a pureed diet. Hernan Osorio MD ELLY
[2017-08-30 05:54] LABS: HEMOGLOBIN 8.2 g/dL (14.0-18.0); MEAN CELL VOLUME 88.8 fl (80.0-105.0); MEAN CORPUSCULAR HEMOGLOBIN 30.7 pg (25.0-35.0); MEAN CORPUSCULAR HGB CONC 34.6 g/dl (31.0-37.0); MEAN PLATELET VOLUME 8.5 fl (7.0-11.0); RBC 2.67 10^6/uL (3.5-6.1); RED CELL DISTRIBUTION WIDTH 18.9 % (11.5-14.5); WHITE BLOOD COUNT 10.6 10^3/ul (4.5-11.0)
[2017-08-30 06:31] LABS: ALB/GLOB RATIO 0.9 (1.1-1.8); ALBUMIN 2.2 g/dL (3.0-4.8); ALT/SGPT 26 U/L (7-56); AST/SGOT 21 U/L (17-59); BLOOD UREA NITROGEN 25 mg/dL (7-21); GFR AFRICAN-AMERICAN > 60; GFR NON-AFRICAN AMERICAN > 60
--- NOTE | 2017-08-30 07:47 | CP.PCM.PN ---
Subjective - Date & Time of Evaluation Date of Evaluation: 08/30/17 Time of Evaluation: 07:44 - Subjective Subjective: Surgery Pt s&e. PT underwent EGD/colonoscopy yesterday and tolerated it well. Shows esophageal ulcer and rectal ulcer. Nurse reports mild bleeding. Pt reports no bleeding overngiht since colonoscopy. Reports weakness. Objective - Vital Signs/Intake and Output Vital Signs (last 24 hours): Temp Pulse Resp BP Pulse Ox 98 F 79 35 H 126/75 100 08/30/17 04:00 08/30/17 06:00 08/30/17 06:00 08/30/17 06:00 08/30/17 06:00 Intake and Output: 08/30/17 08/30/17 06:59 18:59 Intake Total 1805 Output Total 350 Balance 1455 - Medications Medications: Current Medications Albuterol/Ipratropium (Duoneb 3 Mg/0.5 Mg (3 Ml) Ud) 3 ml IH [id number] PRN PRN Reason: Shortness of Breath Amlodipine Besylate (Norvasc) 10 mg PO DAILY [facility] Atorvastatin Calcium (Lipitor) 20 mg PO DAILY [facility] Last Admin: 08/29/17 10:46 Dose: 20 mg Bisacodyl (Dulcolax) 5 mg RC BID [facility] Cyproheptadine HCl (Periactin) 4 mg PO TID [facility] Doxazosin Mesylate (Cardura) 4 mg PO DAILY [facility] Ergocalciferol (Drisdol 50,000 Intl Units Cap) 1 cap PO Fr@1000 ZACK Sodium Chloride (Sodium Chloride 0.9%) 1,000 mls @ 100 mls/hr IV .Q10H [facility] Last Admin: 08/29/17 23:32 Dose: 100 mls/hr Levothyroxine Sodium (Synthroid) 25 mcg PO BID [facility] Multivitamins/Minerals (Therapeutic-M Tab) 1 tab PO DAILY [facility] [id number] Ethyl Esters (Lovaza) 1 gm PO BID [facility] Pantoprazole Sodium (Protonix Inj) 40 mg IVP Q12 [facility] Last Admin: 08/29/17 21:26 Dose: 40 mg Polyethylene Glycol (Miralax) 17 gm PO BID [facility] Zolpidem Tartrate (Ambien) 5 mg PO HS PRN; Protocol PRN Reason: Insomnia - Labs Labs: 08/30/17 05:15 08/30/17 05:15 PT 12.6 SECONDS (9.4-12.5) H 08/28/17 08:50 INR 1.09 (0.93-1.08) H 08/28/17 08:50 APTT 25.4 Seconds (25.1-36.5) 08/28/17 08:50 - Constitutional Appears: No Acute Distress - Head Exam Head Exam: ATRAUMATIC, NORMAL INSPECTION, NORMOCEPHALIC - Eye Exam Eye Exam: EOMI, Normal appearance, PERRL Pupil Exam: NORMAL ACCOMODATION, PERRL - ENT Exam ENT Exam: Mucous Membranes Moist, Normal Exam - Neck Exam Neck Exam: Full ROM, Normal Inspection. absent: Lymphadenopathy - Respiratory Exam Respiratory Exam: Clear to Ausculation Bilateral, NORMAL BREATHING PATTERN - Cardiovascular Exam Cardiovascular Exam: REGULAR RHYTHM, +S1, +S2. absent: Murmur - GI/Abdominal Exam GI & Abdominal Exam: Soft, Normal Bowel Sounds. absent: Distended, Firm, Guarding, Rigid, Tenderness, Hernia, Mass, Rebound - Rectal Exam Rectal Exam: Deferred - Extremities Exam Extremities Exam: Full ROM, Normal Capillary Refill, Normal Inspection. absent : Joint Swelling, Pedal Edema - Back Exam Back Exam: NORMAL INSPECTION - Neurological Exam Neurological Exam: Alert, Awake, CN II-XII Intact, Normal Gait, Oriented x3 - Psychiatric Exam Psychiatric exam: Normal Affect, Normal Mood - Skin Skin Exam: Dry, Intact, Normal Color, Warm Assessment and Plan - Assessment and Plan (Free Text) Assessment: 81 y/o male hemorrhagic shock 2/2 GI bleed: Improving EGD/colon: No active bleeding. ulceration on esophagus and rectum Plan: -vitals improved with blood transfusion, Transfuse PRN -needs ICU monitoring and resuscitation -trend HgB -bleeding scan negative for active bleed -pending clinical course determines surgical intervention -will discuss with Dr. Barrera
[2017-08-30] MEDS: POLYETHYLENE GLYCOL 3350 17 GM/Dose PACKET PO SCH ×2 (09:14→17:31)
[2017-08-30] MEDS: Sodium Chloride 0.9% 1,000 ML IV SCH (09:15)
[2017-08-30] MEDS: Multivitamin With Minerals Tab PO SCH (09:37)
[2017-08-30] MEDS: Omega-3-Acid Ethyl Esters 1 GM Cap PO SCH ×2 (09:37→17:29)
[2017-08-30] MEDS: Levothyroxine 25 MCG TAB PO SCH ×2 (09:37→17:29)
--- NOTE | 2017-08-30 10:57 | CARD ---
APPROVED REPORT EKG Measurement Heart [id number] <Conclusion> Normal sinus rhythm Low voltage QRS limb leads No change
--- NOTE | 2017-08-30 11:21 | CP.PCM.PN ---
<Luigi Lamas - Last Filed: 08/30/17 11:17> Subjective - Date & Time of Evaluation Date of Evaluation: 08/30/17 Time of Evaluation: 11:17 - Subjective Subjective: Patient seen and examined at bedside. Patient complaining of minimal abdominal pain. Denies chest pain, shortness of breath, nausea, vomiting, diarrhea, fever , chills. Objective - Vital Signs/Intake and Output Vital Signs (last 24 hours): Temp Pulse Resp BP Pulse Ox 99.1 F 80 35 H 100/46 L 100 08/30/17 08:00 08/30/17 10:00 08/30/17 06:00 08/30/17 09:14 08/30/17 06:00 Intake and Output: 08/30/17 08/30/17 06:59 18:59 Intake Total 1805 Output Total 350 Balance 1455 - Medications Medications: Current Medications Albuterol/Ipratropium (Duoneb 3 Mg/0.5 Mg (3 Ml) Ud) 3 ml IH [id number] PRN PRN Reason: Shortness of Breath Amlodipine Besylate (Norvasc) 10 mg PO DAILY [facility] Last Admin: 08/30/17 09:14 Dose: Not Given Atorvastatin Calcium (Lipitor) 20 mg PO DAILY [facility] Last Admin: 08/29/17 10:46 Dose: 20 mg Bisacodyl (Dulcolax) 5 mg RC BID [facility] Last Admin: 08/30/17 09:13 Dose: Not Given Cyproheptadine HCl (Periactin) 4 mg PO TID [facility] Last Admin: 08/30/17 09:37 Dose: 4 mg Doxazosin Mesylate (Cardura) 4 mg PO DAILY [facility] Last Admin: 08/30/17 09:13 Dose: Not Given Ergocalciferol (Drisdol 50,000 Intl Units Cap) 1 cap PO Fr@1000 [facility] Sodium Chloride (Sodium Chloride 0.9%) 1,000 mls @ 100 mls/hr IV .Q10H [facility] Last Admin: 08/30/17 09:15 Dose: 100 mls/hr Levothyroxine Sodium (Synthroid) 25 mcg PO BID [facility] Last Admin: 08/30/17 09:37 Dose: 25 mcg Multivitamins/Minerals (Therapeutic-M Tab) 1 tab PO DAILY [facility] Last Admin: 08/30/17 09:37 Dose: 1 tab [id number] Ethyl Esters (Lovaza) 1 gm PO BID [facility] Last Admin: 08/30/17 09:37 Dose: 1 gm Pantoprazole Sodium (Protonix Inj) 40 mg IVP Q12 [facility] Last Admin: 08/30/17 09:39 Dose: 40 mg Polyethylene Glycol (Miralax) 17 gm PO BID [facility] Last Admin: 08/30/17 09:14 Dose: Not Given Zolpidem Tartrate (Ambien) 5 mg PO HS PRN; Protocol PRN Reason: Insomnia - Labs Labs: 08/30/17 05:15 08/30/17 05:15 PT 12.6 SECONDS (9.4-12.5) H 08/28/17 08:50 INR 1.09 (0.93-1.08) H 08/28/17 08:50 APTT 25.4 Seconds (25.1-36.5) 08/28/17 08:50 - Constitutional Appears: Toxic, No Acute Distress - Head Exam Head Exam: ATRAUMATIC, NORMAL INSPECTION, NORMOCEPHALIC - ENT Exam ENT Exam: Mucous Membranes Dry - Respiratory Exam Respiratory Exam: Decreased Breath Sounds, Clear to Ausculation Bilateral, NORMAL BREATHING PATTERN. absent: Rales, Rhonchi, Wheezes - Cardiovascular Exam Cardiovascular Exam: RRR, +S1, +S2 - GI/Abdominal Exam GI & Abdominal Exam: Soft, Normal Bowel Sounds. absent: Tenderness - Extremities Exam Extremities Exam: Normal Inspection. 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 Hemoglobin stable this morning. At this time, patient will be treated conservatively as per GI. Patient is alert and awake, with no major complaints. Patient has a negative bleeding scan and EGD demonstrates ulceration. Patient will be transfered 2 bloody bowel movements. Patiently currently being transfused blood and will be transferred to telemetry. Recommendations: Neuro: AAOx3 No deficits Cardio: Hemodynamically stable Maintain MAP >65 GI: GI bleed Hemoglobin stable Protonix 40 mg IV q12h Pureed diet Bleeding scan negative EGD shows ulceration GI consulted Nephro: Maintain euvolemia Replenish electrolytes as needed Heme/ID: Afebrile, no leukocytosis Maintain normothermia PPX: Hold DVT prophylaxis with LGIB Protonix Cydney, PGY-2 <Richar Wilburn - Last Filed: 08/30/17 12:02> Objective - Vital Signs/Intake and Output Vital Signs (last 24 hours): Temp Pulse Resp BP Pulse Ox 99.1 F 80 35 H 100/46 L 100 08/30/17 08:00 08/30/17 10:00 08/30/17 06:00 08/30/17 09:14 08/30/17 06:00 Intake and Output: 08/30/17 08/30/17 06:59 18:59 Intake Total 1805 Output Total 350 Balance 1455 - Medications Medications: Current Medications Albuterol/Ipratropium (Duoneb 3 Mg/0.5 Mg (3 Ml) Ud) 3 ml IH S2SOLIX PRN PRN Reason: Shortness of Breath Amlodipine Besylate (Norvasc) 10 mg PO DAILY [facility] Last Admin: 08/30/17 09:14 Dose: Not Given Atorvastatin Calcium (Lipitor) 20 mg PO HS [facility] Bisacodyl (Dulcolax) 5 mg RC BID [facility] Last Admin: 08/30/17 09:13 Dose: Not Given Cyproheptadine HCl (Periactin) 4 mg PO TID [facility] Last Admin: 08/30/17 09:37 Dose: 4 mg Doxazosin Mesylate (Cardura) 4 mg PO DAILY [facility] Last Admin: 08/30/17 09:13 Dose: Not Given Ergocalciferol (Drisdol 50,000 Intl Units Cap) 1 cap PO Fr@1000 [facility] Sodium Chloride (Sodium Chloride 0.9%) 1,000 mls @ 100 mls/hr IV .Q10H [facility] Last Admin: 08/30/17 09:15 Dose: 100 mls/hr Levothyroxine Sodium (Synthroid) 25 mcg PO BID [facility] Last Admin: 08/30/17 09:37 Dose: 25 mcg Multivitamins/Minerals (Therapeutic-M Tab) 1 tab PO DAILY [facility] Last Admin: 08/30/17 09:37 Dose: 1 tab [id number] Ethyl Esters (Lovaza) 1 gm PO BID [facility] Last Admin: 08/30/17 09:37 Dose: 1 gm Pantoprazole Sodium (Protonix Inj) 40 mg IVP Q12 [facility] Last Admin: 08/30/17 09:39 Dose: 40 mg Polyethylene Glycol (Miralax) 17 gm PO BID [facility] Last Admin: 08/30/17 09:14 Dose: Not Given Zolpidem Tartrate (Ambien) 5 mg PO HS PRN; Protocol PRN Reason: Insomnia - Labs Labs: 08/30/17 05:15 08/30/17 05:15 PT 12.6 SECONDS (9.4-12.5) H 08/28/17 08:50 INR 1.09 (0.93-1.08) H 08/28/17 08:50 APTT 25.4 Seconds (25.1-36.5) 08/28/17 08:50 Assessment and Plan - Assessment and Plan (Free Text) Plan: Patient seen and examined with resident, agree with note with following additions/exceptions: Patient is 81yo male with PMHx of CAD with stents, colon resection, HTN, HLD, admitted with lower GIB, rectal bleeding, with negative bleeding scan, CAT A/P done with no evidence of active bleeding. Pt had EGD yesterday and flex sig which did not show active bleeding. Surgery and GI are following. HH 8.2, repeat pending. Pt is currently awake, alert, NAD, comfortable with no active bleeding, afebrile , HD stable, comfortable. Lower GIB CAD with stents HTN HLD Hemorrhoids Recommend: - supp o2 as needed - panculture, BCx, UCx, Procal - IVF hydration - monitor CBC, transfuse for HH<8 - follow up GI - full liquid diet - Hold ASA, Plavix - I/Os - GI ppx - DVT ppx, SCDs - Monitor in MICU
[2017-08-30 13:11] LABS: HEMOGLOBIN 7.6 g/dL (14.0-18.0); MEAN CELL VOLUME 89.6 fl (80.0-105.0); MEAN CORPUSCULAR HEMOGLOBIN 30.3 pg (25.0-35.0); MEAN CORPUSCULAR HGB CONC 33.8 g/dl (31.0-37.0); MEAN PLATELET VOLUME 8.5 fl (7.0-11.0); RBC 2.51 10^6/uL (3.5-6.1); RED CELL DISTRIBUTION WIDTH 18.6 % (11.5-14.5); WHITE BLOOD COUNT 8.3 10^3/ul (4.5-11.0)
[2017-08-30 17:44] LABS: HEMOGLOBIN 10.2 g/dL (14.0-18.0); MEAN CELL VOLUME 87.2 fl (80.0-105.0); MEAN CORPUSCULAR HEMOGLOBIN 30.4 pg (25.0-35.0); MEAN CORPUSCULAR HGB CONC 34.9 g/dl (31.0-37.0); MEAN PLATELET VOLUME 8.7 fl (7.0-11.0); RBC 3.35 10^6/uL (3.5-6.1); RED CELL DISTRIBUTION WIDTH 17.4 % (11.5-14.5); WHITE BLOOD COUNT 9.3 10^3/ul (4.5-11.0)
--- NOTE | 2017-08-31 00:37 | PN ---
DATE: 08/30/2017 PULMONARY PROGRESS NOTE REFERRING PHYSICIAN: Hannah Ramirez MD. SUBJECTIVE: He is lying in the bed, moved to Intensive Care Unit because of persistent rectal bleed requiring transfusion, already had 2 units of packed RBCs. Still hemoglobin around 7 or so. The patient is being followed by Surgery and GI. Complaining about insomnia, rectal pain. Not much cough. No sputum production. No abdominal pain. Rectal pain is there. No leg swelling. OBJECTIVE: GENERAL: No acute distress. VITAL SIGNS: Temperature is 98, heart rate IS 82, respiratory rate is 20, blood pressure 122/54, pulse ox 99% on room air. HEENT: Moist mucous membranes. Small oral cavity. NECK: Supple. No JVD. LUNGS: Have fair airflow with rhonchi. HEART: S1 and S2. ABDOMEN: Positive bowel sounds. Soft. Has a Douglas catheter. EXTREMITIES: There is no edema. NEUROLOGIC: Awake and alert. Follows simple command. MEDICATIONS: He is on Ambien 5 mg at bedtime p.r.n., Cardura 4 mg daily, vitamin D 50,000 units weekly, Dulcolax 5 mg rectally b.i.d., also has DuoNeb q. 6 hours p.r.n., Lipitor 20 mg daily, Lovaza 1 g twice a day, MiraLax 17 g twice a day, Norvasc 10 mg daily, Periactin 4 mg three times a day, Protonix 40 mg twice a day, IV fluid normal saline 100 mL/hour, Synthroid 25 mcg twice a day, multivitamins daily. LABORATORY DATA: Shows hemoglobin 10.2, hematocrit 29.2, WBC 9.3, platelet is 183. Sodium 133, potassium 4.5, chloride 106, bicarbonate 23, BUN 25, creatinine 0.9, glucose 110, calcium is 8.0, AST 21, ALT 26, alk phos is 45. Albumin is 2.2. TSH 2.86. Microbiology: Blood culture has been negative. IMPRESSION AND PLAN: Recurrent bowel obstruction, has a history of for esophageal ulcer, gastroparesis, chronic constipation, rectal ulcers, hemorrhoids, coronary artery disease, hypertension, hyperlipidemia, chronic lung disease, anemia, may have a component of sleep apnea syndrome, gastroesophageal reflux disease. Case discussed with Dr. Osorio. There is no active bleed noted at present time. H and H have been okay after transfusion. Needs colonoscopy to evaluate the rectal ulcers. MiraLax is being given. He is also ordered for Dulcolax. Pulmonary point of view, keep head at 45 degrees. If sedated, close cardiopulmonary monitoring for sleep apnea. Follow up labs in the morning. Thank you and we will follow with you. Dakotah Farrar MD
--- NOTE | 2017-08-31 02:54 | PN ---
DATE: 08/30/2017 SUBJECTIVE: This patient was seen and evaluated earlier today. The patient is on clear liquid diet. No further episodes of bleeding now. The patient did have a large amount of burgundy stool after the flexible sigmoidoscopic evaluation. PHYSICAL EXAMINATION: VITAL SIGNS: His temperature is 98.8, blood pressure 123/58, pulse 79, respirations 18, O2 saturation 100%. HEENT: Atraumatic, anicteric. NECK: Supple. HEART: S1 and S2 heard. LUNGS: Bilateral air entry present. ABDOMEN: Soft. There is no mass palpable. No tenderness. EXTREMITIES: No edema, no cyanosis. LABORATORY DATA: Hemoglobin 10.2, hematocrit 29.2, WBC 9.3, platelets 183. Chemistries, total bilirubin is 1.9. Rest of the labs are essentially unremarkable. IMPRESSION: 1. This 81-year-old patient is admitted with bleeding per rectum, found to have a fecal impaction. Flexible sigmoidoscopy showed large stercoral ulcerations with brown stools and clotted blood. The patient subsequently had a significant amount of burgundy stool. Other differential diagnosis will include diverticular disease, the patient did have extensive diverticular disease including diverticulosis of the rectum area. 2. The patient has gastroparesis. 3. Esophageal ulceration with the ulcerations extending to the upper esophagus. 4. Anemia post hemorrhagic, status post transfusion, totally he was transfused two units, and third unit in progress. PLAN: Would recommend, 1. Clear liquid diet for today. 2. Continue the high-dose PPI. 3. Continue the MiraLax twice daily. If the patient remains more stable, we will continue the clear liquid diet and give half a gallon of GoLYTELY in the morning further to clean out. His other comorbidities include status post partial colectomy, obstructive sleep apnea, hypertension, and dyslipidemia. I have discussed with the patient's family yesterday at length. Thank you very much for allowing us to participate in the care of the patient. Hernan Osorio MD [facility]
[2017-08-31 06:06] LABS: HEMOGLOBIN 9.3 g/dL (14.0-18.0); MEAN CELL VOLUME 86.2 fl (80.0-105.0); MEAN CORPUSCULAR HEMOGLOBIN 29.9 pg (25.0-35.0); MEAN CORPUSCULAR HGB CONC 34.7 g/dl (31.0-37.0); MEAN PLATELET VOLUME 8.7 fl (7.0-11.0); RBC 3.11 10^6/uL (3.5-6.1); RED CELL DISTRIBUTION WIDTH 17.6 % (11.5-14.5)
[2017-08-31 06:23] LABS: ALB/GLOB RATIO 0.9 (1.1-1.8); ALBUMIN 2.3 g/dL (3.0-4.8); ALT/SGPT 25 U/L (7-56); AST/SGOT 23 U/L (17-59); BLOOD UREA NITROGEN 11 mg/dL (7-21); CALCIUM 8.2 mg/dL (8.4-10.5); GFR AFRICAN-AMERICAN > 60; GFR NON-AFRICAN AMERICAN > 60
--- NOTE | 2017-08-31 07:58 | CP.PCM.PN ---
Subjective - Date & Time of Evaluation Date of Evaluation: 08/31/17 Time of Evaluation: 07:57 - Subjective Subjective: Surgery: Dr. Barrera Patient feeling better today. He denies pain at the rectum. He denies further bloody bowel movements. He is tolerating diet. Objective - Vital Signs/Intake and Output Vital Signs (last 24 hours): Temp Pulse Resp BP Pulse Ox 98.3 F 79 19 137/67 96 08/31/17 04:00 08/31/17 06:00 08/31/17 04:00 08/31/17 04:00 08/31/17 04:00 Intake and Output: 08/31/17 08/31/17 06:59 18:59 Intake Total 100 Output Total 1800 Balance -1700 - Medications Medications: Current Medications Albuterol/Ipratropium (Duoneb 3 Mg/0.5 Mg (3 Ml) Ud) 3 ml IH [id number] PRN PRN Reason: Shortness of Breath Amlodipine Besylate (Norvasc) 10 mg PO DAILY [facility] Last Admin: 08/30/17 09:14 Dose: Not Given Atorvastatin Calcium (Lipitor) 20 mg PO HS [facility] Last Admin: 08/30/17 21:03 Dose: 20 mg Bisacodyl (Dulcolax) 5 mg RC BID [facility] Last Admin: 08/30/17 17:30 Dose: 5 mg Cyproheptadine HCl (Periactin) 4 mg PO TID [facility] Last Admin: 08/30/17 17:30 Dose: 4 mg Doxazosin Mesylate (Cardura) 4 mg PO DAILY [facility] Last Admin: 08/30/17 09:13 Dose: Not Given Ergocalciferol (Drisdol 50,000 Intl Units Cap) 1 cap PO Fr@1000 [facility] Sodium Chloride (Sodium Chloride 0.9%) 1,000 mls @ 100 mls/hr IV .Q10H [facility] Last Admin: 08/30/17 09:15 Dose: 100 mls/hr Levothyroxine Sodium (Synthroid) 25 mcg PO BID [facility] Last Admin: 08/30/17 17:29 Dose: 25 mcg Multivitamins/Minerals (Therapeutic-M Tab) 1 tab PO DAILY [facility] Last Admin: 08/30/17 09:37 Dose: 1 tab Dwecz-2-[id number] Ethyl Esters (Lovaza) 1 gm PO BID [facility] Last Admin: 08/30/17 17:29 Dose: 1 gm Pantoprazole Sodium (Protonix Inj) 40 mg IVP Q12 [facility] Last Admin: 08/30/17 21:04 Dose: 40 mg Polyethylene Glycol (Miralax) 17 gm PO BID [facility] Last Admin: 08/30/17 17:31 Dose: 17 gm Zolpidem Tartrate (Ambien) 5 mg PO HS PRN; Protocol PRN Reason: Insomnia Last Admin: 08/30/17 21:03 Dose: 5 mg - Labs Labs: 08/31/17 05:30 08/31/17 05:30 PT 12.6 SECONDS (9.4-12.5) H 08/28/17 08:50 INR 1.09 (0.93-1.08) H 08/28/17 08:50 APTT 25.4 Seconds (25.1-36.5) 08/28/17 08:50 - Constitutional Appears: No Acute Distress, Chronically Ill - Head Exam Head Exam: ATRAUMATIC, NORMOCEPHALIC - Eye Exam Eye Exam: EOMI, Normal appearance - ENT Exam ENT Exam: Mucous Membranes Moist - Respiratory Exam Respiratory Exam: NORMAL BREATHING PATTERN. absent: Respiratory Distress - Cardiovascular Exam Cardiovascular Exam: REGULAR RHYTHM. absent: Tachycardia - GI/Abdominal Exam GI & Abdominal Exam: Distended, Soft. absent: Guarding, Rigid, Tenderness, Rebound Assessment and Plan - Assessment and Plan (Free Text) Assessment: 81 y/o male w/ GI bleed most likely 2/2 stercoral ulcer Plan: -cont to monitory for bleeding -repeat CBC in am -transfuse prn -ADAT -bowel regimen to prevent constipation -further recs per GI -no acute surgical intervention at this time -further recs per Dr. Bruce Song PGY3
[2017-08-31] MEDS: Sodium Chloride 0.9% 1,000 ML IV SCH ×2 (09:12→11:13)
[2017-08-31] MEDS: Omega-3-Acid Ethyl Esters 1 GM Cap PO SCH ×2 (09:21→18:16)
[2017-08-31] MEDS: Levothyroxine 25 MCG TAB PO SCH ×2 (09:21→18:17)
[2017-08-31] MEDS: Multivitamin With Minerals Tab PO SCH (09:21)
[2017-08-31] MEDS: POLYETHYLENE GLYCOL 3350 17 GM/Dose PACKET PO SCH ×2 (09:22→18:16)
--- NOTE | 2017-08-31 12:21 | CP.CCUPN ---
<Luigi Lamas - Last Filed: 08/31/17 12:36> CCU Subjective - Physician Review Subjective (Free Text): Patient seen and examined at bedside. Patient admits to mild lower abdominal pain this morning. Denies blood in stool, chest pain, shortness of breath, nausea, vomiting, diarrhea, fever, chills. CCU Objective - Vital Signs / Intake & Output Vital Signs (Last 4 hours): Vital Signs Pulse Resp BP Pulse Ox 08/31/17 09:22 136/67 08/31/17 09:00 86 19 136/67 100 Intake and Output (Last 8hrs): Intake & Output 08/30/17 08/31/17 08/31/17 22:59 06:59 14:59 Intake Total 1575 100 Output Total 700 1800 Balance 875 -1700 Weight 108 lb 12.8 oz Intake: IV 1000 Right Antecubital 1000 Oral 250 100 Blood Product 325 Output: Urine 700 1800 Urethral (Douglas) 700 1800 Other: # Bowel Movements 1 1 - Physical Exam Head: Positive for: Atraumatic, Normocephalic Mouth: Positive for: Moist Mucous Membranes Respiratory/Chest: Positive for: Clear to Auscultation, Good Air Exchange. Negative for: Wheezes, Rales, Rhonchi Cardiovascular: Positive for: Regular Rate and Rhythm, Normal S1, S2 Abdomen: Positive for: Tenderness (Lower abdominal tenderness), Normal Bowel Sounds Upper Extremity: Positive for: Normal Inspection Lower Extremity: Positive for: Normal Inspection Neurological: Positive for: GCS=15, CN II-XII Intact, Speech Normal Skin: Positive for: Warm, Dry Psychiatric: Positive for: Alert, Oriented x 3, Normal Insight, Normal Concentration - Medications Active Medications: Active Medications Generic Name Dose Route Start Last Admin Trade Name Freq PRN Reason Stop Dose Admin Albuterol/Ipratropium 3 ml 08/29/17 18:43 Duoneb 3 Mg/0.5 Mg (3 Ml) Ud IH [id number] PRN Shortness of Breath Amlodipine Besylate 10 mg 08/30/17 10:00 08/31/17 09:22 Norvasc PO 10 mg DAILY ZACK Administration Atorvastatin Calcium 20 mg 08/30/17 22:00 08/30/17 21:03 Lipitor PO 20 mg HS ZACK Administration Bisacodyl 5 mg 08/30/17 10:00 08/31/17 09:22 Dulcolax RC 5 mg BID ZACK Administration Cyproheptadine HCl 4 mg 08/30/17 10:00 08/31/17 09:22 Periactin PO 4 mg TID ZACK Administration Doxazosin Mesylate 4 mg 08/30/17 10:00 08/31/17 09:22 Cardura PO 4 mg DAILY ZACK Administration Ergocalciferol 1 cap 09/05/17 10:00 Drisdol 50,000 Intl Units Cap PO Fr@1000 ZACK Sodium Chloride 1,000 mls @ 60 mls/hr 08/31/17 11:06 08/31/17 11:13 Sodium Chloride 0.9% IV 60 mls/hr .[id number] ZACK Administration Levothyroxine Sodium 25 mcg 08/30/17 10:00 08/31/17 09:21 Synthroid PO 25 mcg BID ZACK Administration Multivitamins/Minerals 1 tab 08/30/17 10:00 08/31/17 09:21 Therapeutic-M Tab PO 1 tab DAILY ZACK Administration Xvicb-1-Ykdc Ethyl Esters 1 gm 08/30/17 10:00 08/31/17 09:21 Lovaza PO 1 gm BID ZACK Administration Pantoprazole Sodium 40 mg 08/28/17 22:00 08/31/17 09:22 Protonix Inj IVP 40 mg Q12 ZACK Administration Polyethylene Glycol 17 gm 08/30/17 10:00 08/31/17 09:22 Miralax PO 17 gm BID ZACK Administration Zolpidem Tartrate 5 mg 08/29/17 18:45 08/30/17 21:03 Ambien PO 5 mg HS PRN Administration Insomnia Protocol - Patient Studies Lab Studies: Lab Studies 08/31/17 08/31/17 08/30/17 Range/Units 05:30 05:30 17:20 WBC 8.0 9.3 (4.5-11.0) 10^3/ul RBC 3.11 L 3.35 L (3.5-6.1) 10^6/uL Hgb 9.3 L 10.2 L D (14.0-18.0) g/dL Hct 26.8 L 29.2 L (42.0-52.0) % MCV 86.2 87.2 (80.0-105.0) fl MCH 29.9 30.4 (25.0-35.0) pg MCHC 34.7 34.9 (31.0-37.0) g/dl RDW 17.6 H 17.4 H (11.5-14.5) % Plt Count 196 183 (120.0-450.0) 10^3/uL MPV 8.7 8.7 (7.0-11.0) fl Sodium 136 (132-148) mmol/L Potassium 3.7 (3.6-5.0) mmol/L Chloride 106 (98-107) mmol/L Carbon Dioxide 24 (21-33) mmol/L Anion Gap 11 (10-20) BUN 11 (7-21) mg/dL Creatinine 0.8 (0.8-1.5) mg/dl Est GFR ( Amer) > 60 Est GFR (Non-Af Amer) > 60 Random Glucose 109 (70-110) mg/dL Calcium 8.2 L (8.4-10.5) mg/dL Total Bilirubin 0.7 (0.2-1.3) mg/dL AST 23 (17-59) U/L ALT 25 (7-56) U/L Alkaline Phosphatase 46 (38-126) U/L Total Protein 4.9 L (5.8-8.3) g/dL Albumin 2.3 L (3.0-4.8) g/dL Globulin 2.5 gm/dL Albumin/Globulin Ratio 0.9 L (1.1-1.8) //18 Range/Units 12:20 WBC 8.3 D (4.5-11.0) 10^3/ul RBC 2.51 L (3.5-6.1) 10^6/uL Hgb 7.6 L (14.0-18.0) g/dL Hct 22.5 L (42.0-52.0) % MCV 89.6 (80.0-105.0) fl MCH 30.3 (25.0-35.0) pg MCHC 33.8 (31.0-37.0) g/dl RDW 18.6 H (11.5-14.5) % Plt Count 201 (120.0-450.0) 10^3/uL MPV 8.5 (7.0-11.0) fl Sodium (132-148) mmol/L Potassium (3.6-5.0) mmol/L Chloride (98-107) mmol/L Carbon Dioxide (21-33) mmol/L Anion Gap (10-20) BUN (7-21) mg/dL Creatinine (0.8-1.5) mg/dl Est GFR ( Amer) Est GFR (Non-Af Amer) Random Glucose (70-110) mg/dL Calcium (8.4-10.5) mg/dL Total Bilirubin (0.2-1.3) mg/dL AST (17-59) U/L ALT (7-56) U/L Alkaline Phosphatase (38-126) U/L Total Protein (5.8-8.3) g/dL Albumin (3.0-4.8) g/dL Globulin gm/dL Albumin/Globulin Ratio (1.1-1.8) Laboratory Results - last 24 hr 08/30/17 08/30/17 08/31/17 12:20 17:20 05:30 WBC 8.3 D 9.3 8.0 RBC 2.51 L 3.35 L 3.11 L Hgb 7.6 L 10.2 L D 9.3 L Hct 22.5 L 29.2 L 26.8 L MCV 89.6 87.2 86.2 MCH 30.3 30.4 29.9 MCHC 33.8 34.9 34.7 RDW 18.6 H 17.4 H 17.6 H Plt Count 201 183 196 MPV 8.5 8.7 8.7 Sodium Potassium Chloride Carbon Dioxide Anion Gap BUN Creatinine Est GFR ( Amer) Est GFR (Non-Af Amer) Random Glucose Calcium Total Bilirubin AST ALT Alkaline Phosphatase Total Protein Albumin Globulin Albumin/Globulin Ratio 08/31/17 05:30 WBC RBC Hgb Hct MCV MCH MCHC RDW Plt Count MPV Sodium 136 Potassium 3.7 Chloride 106 Carbon Dioxide 24 Anion Gap 11 BUN 11 Creatinine 0.8 Est GFR ( Amer) > 60 Est GFR (Non-Af Amer) > 60 Random Glucose 109 Calcium 8.2 L Total Bilirubin 0.7 AST 23 ALT 25 Alkaline Phosphatase 46 Total Protein 4.9 L Albumin 2.3 L Globulin 2.5 Albumin/Globulin Ratio 0.9 L Critical Care Progress Note - Nutrition Nutrition: Nutrition Category Date Time Status Liquid Diet [DIET] Diets 08/30/17 Breakfast Ordered Assessment/Plan - Assessment and Plan (Free Text) Plan: 81 year old male with past medical history of arthritis, pulmonary artery disease, status post 2 cardiac stents, HTN, Hypercholesterolemia, COPD, 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 Hemoglobin stable after receiving 1 unit of PRBCs yesterday. Patient will be treated conservatively as per GI. Patient has a negative bleeding scan and EGD demonstrates ulceration. Patiently will be transferred to med/surg. Recommendations: Neuro: AAOx3 No deficits Cardio: Hemodynamically stable Maintain MAP >65 GI: GI bleed Hemoglobin stable Protonix 40 mg IV q12h Pureed diet Bleeding scan negative EGD shows ulceration GI consulted Nephro: Maintain euvolemia Replenish electrolytes as needed Heme/ID: Afebrile, no leukocytosis Maintain normothermia PPX: Hold DVT prophylaxis with LGIB Protonix Cydney, PGY-2 <Richar Wilburn - Last Filed: 08/31/17 13:08> CCU Objective - Vital Signs / Intake & Output Vital Signs (Last 4 hours): Vital Signs BP 08/31/17 09:22 136/67 Intake and Output (Last 8hrs): Intake & Output 08/30/17 08/31/17 08/31/17 22:59 06:59 14:59 Intake Total 1575 100 Output Total 700 1800 Balance 875 -1700 Weight 108 lb 12.8 oz Intake: IV 1000 Right Antecubital 1000 Oral 250 100 Blood Product 325 Output: Urine 700 1800 Urethral (Douglas) 700 1800 Other: # Bowel Movements 1 1 - Medications Active Medications: Active Medications Generic Name Dose Route Start Last Admin Trade Name Freq PRN Reason Stop Dose Admin Albuterol/Ipratropium 3 ml 08/29/17 18:43 Duoneb 3 Mg/0.5 Mg (3 Ml) Ud IH [id number] PRN Shortness of Breath Amlodipine Besylate 10 mg 08/30/17 10:00 08/31/17 09:22 Norvasc PO 10 mg DAILY ZACK Administration Atorvastatin Calcium 20 mg 08/30/17 22:00 08/30/17 21:03 Lipitor PO 20 mg HS ZACK Administration Bisacodyl 5 mg 08/30/17 10:00 03/18/18 09:22 Dulcolax RC 5 mg BID ZACK Administration Cyproheptadine HCl 4 mg 08/30/17 10:00 08/31/17 09:22 Periactin PO 4 mg TID ZACK Administration Doxazosin Mesylate 4 mg 08/30/17 10:00 08/31/17 09:22 Cardura PO 4 mg DAILY ZACK Administration Ergocalciferol 1 cap 09/05/17 10:00 Drisdol 50,000 Intl Units Cap PO Fr@1000 ZACK Sodium Chloride 1,000 mls @ 60 mls/hr 08/31/17 11:06 08/31/17 11:13 Sodium Chloride 0.9% IV 60 mls/hr .[id number] ZACK Administration Levothyroxine Sodium 25 mcg 08/30/17 10:00 08/31/17 09:21 Synthroid PO 25 mcg BID ZACK Administration Multivitamins/Minerals 1 tab 08/30/17 10:00 08/31/17 09:21 Therapeutic-M Tab PO 1 tab DAILY ZACK Administration Bwyew-4-Dszc Ethyl Esters 1 gm 08/30/17 10:00 08/31/17 09:21 Lovaza PO 1 gm BID ZACK Administration Pantoprazole Sodium 40 mg 08/28/17 22:00 08/31/17 09:22 Protonix Inj IVP 40 mg Q12 ZACK Administration Polyethylene Glycol 17 gm 08/30/17 10:00 08/31/17 09:22 Miralax PO 17 gm BID ZACK Administration Zolpidem Tartrate 5 mg 08/29/17 18:45 08/30/17 21:03 Ambien PO 5 mg HS PRN Administration Insomnia Protocol - Patient Studies Lab Studies: Microbiology Studies 08/29/17 19:00 MRSA Culture (Admit) - Final Naris Lab Studies 08/31/17 08/31/17 08/30/17 Range/Units 05:30 05:30 17:20 WBC 8.0 9.3 (4.5-11.0) 10^3/ul RBC 3.11 L 3.35 L (3.5-6.1) 10^6/uL Hgb 9.3 L 10.2 L D (14.0-18.0) g/dL Hct 26.8 L 29.2 L (42.0-52.0) % MCV 86.2 87.2 (80.0-105.0) fl MCH 29.9 30.4 (25.0-35.0) pg MCHC 34.7 34.9 (31.0-37.0) g/dl RDW 17.6 H 17.4 H (11.5-14.5) % Plt Count 196 183 (120.0-450.0) 10^3/uL MPV 8.7 8.7 (7.0-11.0) fl Sodium 136 (132-148) mmol/L Potassium 3.7 (3.6-5.0) mmol/L Chloride 106 (98-107) mmol/L Carbon Dioxide 24 (21-33) mmol/L Anion Gap 11 (10-20) BUN 11 (7-21) mg/dL Creatinine 0.8 (0.8-1.5) mg/dl Est GFR ( Amer) > 60 Est GFR (Non-Af Amer) > 60 Random Glucose 109 (70-110) mg/dL Calcium 8.2 L (8.4-10.5) mg/dL Total Bilirubin 0.7 (0.2-1.3) mg/dL AST 23 (17-59) U/L ALT 25 (7-56) U/L Alkaline Phosphatase 46 (38-126) U/L Total Protein 4.9 L (5.8-8.3) g/dL Albumin 2.3 L (3.0-4.8) g/dL Globulin 2.5 gm/dL Albumin/Globulin Ratio 0.9 L (1.1-1.8) //18 Range/Units 12:20 WBC 8.3 D (4.5-11.0) 10^3/ul RBC 2.51 L (3.5-6.1) 10^6/uL Hgb 7.6 L (14.0-18.0) g/dL Hct 22.5 L (42.0-52.0) % MCV 89.6 (80.0-105.0) fl MCH 30.3 (25.0-35.0) pg MCHC 33.8 (31.0-37.0) g/dl RDW 18.6 H (11.5-14.5) % Plt Count 201 (120.0-450.0) 10^3/uL MPV 8.5 (7.0-11.0) fl Sodium (132-148) mmol/L Potassium (3.6-5.0) mmol/L Chloride (98-107) mmol/L Carbon Dioxide (21-33) mmol/L Anion Gap (10-20) BUN (7-21) mg/dL Creatinine (0.8-1.5) mg/dl Est GFR ( Amer) Est GFR (Non-Af Amer) Random Glucose (70-110) mg/dL Calcium (8.4-10.5) mg/dL Total Bilirubin (0.2-1.3) mg/dL AST (17-59) U/L ALT (7-56) U/L Alkaline Phosphatase (38-126) U/L Total Protein (5.8-8.3) g/dL Albumin (3.0-4.8) g/dL Globulin gm/dL Albumin/Globulin Ratio (1.1-1.8) Laboratory Results - last 24 hr 08/30/17 08/30/17 08/31/17 12:20 17:20 05:30 WBC 8.3 D 9.3 8.0 RBC 2.51 L 3.35 L 3.11 L Hgb 7.6 L 10.2 L D 9.3 L Hct 22.5 L 29.2 L 26.8 L MCV 89.6 87.2 86.2 MCH 30.3 30.4 29.9 MCHC 33.8 34.9 34.7 RDW 18.6 H 17.4 H 17.6 H Plt Count 201 183 196 MPV 8.5 8.7 8.7 Sodium Potassium Chloride Carbon Dioxide Anion Gap BUN Creatinine Est GFR ( Amer) Est GFR (Non-Af Amer) Random Glucose Calcium Total Bilirubin AST ALT Alkaline Phosphatase Total Protein Albumin Globulin Albumin/Globulin Ratio 08/31/17 05:30 WBC RBC Hgb Hct MCV MCH MCHC RDW Plt Count MPV Sodium 136 Potassium 3.7 Chloride 106 Carbon Dioxide 24 Anion Gap 11 BUN 11 Creatinine 0.8 Est GFR ( Amer) > 60 Est GFR (Non-Af Amer) > 60 Random Glucose 109 Calcium 8.2 L Total Bilirubin 0.7 AST 23 ALT 25 Alkaline Phosphatase 46 Total Protein 4.9 L Albumin 2.3 L Globulin 2.5 Albumin/Globulin Ratio 0.9 L Critical Care Progress Note - Nutrition Nutrition: Nutrition Category Date Time Status Liquid Diet [DIET] Diets 08/30/17 Breakfast Ordered Assessment/Plan - Assessment and Plan (Free Text) Plan: Patient seen and examined with resident, agree with note with following additions/exceptions: Patient is 81yo male with PMHx of CAD with stents, colon resection, HTN, HLD, admitted with lower GIB, rectal bleeding, with negative bleeding scan, CAT A/P done with no evidence of active bleeding. Surgery and GI are following. HH 9.3 Pt is currently awake, alert, NAD, comfortable with no active bleeding, afebrile , HD stable. Lower GIB CAD with stents HTN HLD Hemorrhoids Recommend: - supp o2 as needed - IVF hydration - monitor CBC, transfuse for HH<8 - follow up GI - full liquid diet - Hold ASA, Plavix - I/Os - GI ppx - DVT ppx, SCDs - stable, transfer
[2017-08-31] MEDS ORDERED: Peg-Electrolyte Oral Soln 4L (Golytely) PO ONE (16:47)
--- NOTE | 2017-08-31 21:57 | PN ---
DATE: 08/31/2017 PULMONARY PROGRESS NOTE REFERRING PHYSICIAN: Hannah Ramirez MD. SUBJECTIVE: He is lying in the bed, head at 45 degrees. Feels better, sleepy, arousable. No headache. No rhinitis. No cough. No nausea. Did have a bowel movement. Most recent bowel movement is brown. No leg pain, no leg swelling. PHYSICAL EXAMINATION: GENERAL: No acute distress. VITAL SIGNS: Temperature 98, heart rate 85, respiratory rate 22, blood pressure 136/67, pulse ox 100% on room air. HEENT: Small oral cavity. Crowded airway. NECK: Supple. No JVD. LUNGS: Fair airflow with rhonchi. HEART: S1 and S2. ABDOMEN: Positive bowel sounds. Soft, nontender, nondistended. EXTREMITIES: There is no edema. NEUROLOGICAL: Sleepy, arousable. Follows simple command. MEDICATIONS: He is on Ambien 5 mg at bedtime p.r.n., Cardura 4 mg daily, also vitamin D 50,000 unit weekly, Dulcolax 5 mg rectally twice a day, DuoNeb q.6 hour p.r.n., Lipitor 20 mg at bedtime, Lovaza 1 g twice a day, MiraLax 17 g twice a day, Norvasc 10 mg daily, Periactin 4 mg three times a day, Protonix 40 mg twice a day, IV fluid normal saline 60 mL/hour, Synthroid 25 mcg daily, multivitamins daily. LABORATORY DATA: Shows hemoglobin 9.3, hematocrit 26.8,WBC 8, platelets 196. Sodium 136, potassium 3.7, chloride 106, bicarbonate 24, BUN 11, creatinine 0.8, glucose 109, calcium 8.2. AST 23, ALT 25, alkaline phosphatase 46, albumin 2.3. Microbiology: Blood cultures and naris cultures are unremarkable. Has endoscopy done today shows stercoral ulceration, a few ulcers at the anus and in the distal rectum, stool in the distal rectum, blood in the rectum. Also an EGD done, which shows esophagogram, landmarks identified. A large amount of food in the stomach. Has gastroparesis. IMPRESSION AND PLAN: Gastrointestinal bleed secondary to severe constipation and mucosal ulcers, also has severe gastroparesis, anemia, coronary artery disease, hypertension, hyperlipidemia, chronic lung disease, may have sleep apnea syndrome. Continue stool softener and intestinal stimulant as per GI. Pulmonary point of view, keep head at 45 degree, follow up hemoglobin and hematocrit, gastric prophylaxis, sequential compression devices to lower extremities. Thank you and we will follow with you. Dakotah Farrar MD
[2017-09-01] MEDS: Sodium Chloride 0.9% 1,000 ML IV SCH (03:40)
--- NOTE | 2017-09-01 07:10 | PN ---
DATE: 08/31/2017 SUBJECTIVE: This patient was seen and evaluated earlier today. No further episodes of bleeding per rectum. Hemodynamically remains stable. PHYSICAL EXAMINATION: VITAL SIGNS: Temperature is 99.2, pulse rate is 82, blood pressure is 100/41. HEENT: Atraumatic, anicteric. NECK: Supple. HEART: S1 and S2 heard. LUNGS: Bilateral air entry present. ABDOMEN: Soft. There is no tenderness present. EXTREMITIES: No cyanosis. No clubbing. LABORATORY DATA: Hemoglobin 9.3, hematocrit 26.8, WBC 8.0, platelets 196. BUN 11, creatinine 0.8, albumin 2.5. Bilirubin is slightly elevated to 1.9. IMPRESSION: This 81-year-old patient admitted with rectal bleeding. EGD revealed a grade-C esophageal ulceration and a large amount of gastric bezoar. Patient had a flexible sigmoidoscopy done, which showed stercoral ulceration and large amount of stool. PLAN: 1. Patient's hemoglobin and hematocrit is stable, but however, it is reasonable to do a bowel clearance before she goes. Patient is given MiraLax and also milk of magnesia. If it is not improving, we will give half a gallon of GoLYTELY in a.m. Patient is to follow up the upper gastrointestinal endoscopic evaluation report also. Followup of the flexible sigmoidoscopy report also. Patient did have flexible sigmoidoscopy, found to have a large stercoral ulceration and large amount of stool. Would recommend MiraLax. 2. Followup of the hemoglobin and hematocrit. Transfuse. 3. Liquid diet, slowly advance to pureed diet. Patient will need a repeat endoscopy in about 6 to 8 weeks' time to evaluate the healing of the ulceration. Thank you very much for allowing us to participate in the care of the patient. Hernan Osorio MD
[2017-09-01 07:30] LABS: BASO # 0.03 K/mm3 (0.0-2.0); BASO % 0.5 % (0.0-3.0); EOS # 0.6 (0.0-0.7); GRAN # 2.97 (1.4-6.5); GRAN % 50.3 % (50.0-68.0); HEMOGLOBIN 8.7 g/dL (14.0-18.0); LYMPH # 1.9 (1.2-3.4); LYMPH % 32.3 % (22.0-35.0); MEAN CELL VOLUME 86.5 fl (80.0-105.0); MEAN CORPUSCULAR HEMOGLOBIN 30.1 pg (25.0-35.0); MEAN CORPUSCULAR HGB CONC 34.8 g/dl (31.0-37.0); MEAN PLATELET VOLUME 8.3 fl (7.0-11.0); MONO # 0.4 (0.1-0.6); MONO % 6.9 % (1.0-6.0); RBC 2.89 10^6/uL (3.5-6.1); RED CELL DISTRIBUTION WIDTH 16.8 % (11.5-14.5); WHITE BLOOD COUNT 5.9 10^3/ul (4.5-11.0)
[2017-09-01 08:04] LABS: BLOOD UREA NITROGEN 6 mg/dL (7-21); CALCIUM 8.2 mg/dL (8.4-10.5); GFR AFRICAN-AMERICAN > 60; GFR NON-AFRICAN AMERICAN > 60
--- NOTE | 2017-09-01 09:06 | CP.PCM.PN ---
Subjective - Date & Time of Evaluation Date of Evaluation: 09/01/17 Time of Evaluation: 09:02 - Subjective Subjective: Surgery Progress Note for Dr Barrera: Patient seen and examined at bedside. No acute events overnight. Denies excessive bleeding, fever, chills, weakness, nausea, vomiting. Objective - Vital Signs/Intake and Output Vital Signs (last 24 hours): Temp Pulse Resp BP Pulse Ox 99 F 82 19 121/58 L 96 08/31/17 22:00 08/31/17 22:00 08/31/17 22:00 08/31/17 22:00 08/31/17 22:00 Intake and Output: 09/01/17 09/01/17 06:59 18:59 Intake Total 2580 Balance 2580 - Medications Medications: Current Medications Albuterol/Ipratropium (Duoneb 3 Mg/0.5 Mg (3 Ml) Ud) 3 ml IH [id number] PRN PRN Reason: Shortness of Breath Amlodipine Besylate (Norvasc) 10 mg PO DAILY [facility] Last Admin: 08/31/17 09:22 Dose: 10 mg Atorvastatin Calcium (Lipitor) 20 mg PO HS [facility] Last Admin: 08/31/17 21:47 Dose: 20 mg Bisacodyl (Dulcolax) 5 mg RC BID [facility] Last Admin: 08/31/17 18:15 Dose: 5 mg Cyproheptadine HCl (Periactin) 4 mg PO TID [facility] Last Admin: 08/31/17 18:16 Dose: 4 mg Doxazosin Mesylate (Cardura) 4 mg PO DAILY [facility] Last Admin: 08/31/17 09:22 Dose: 4 mg Ergocalciferol (Drisdol 50,000 Intl Units Cap) 1 cap PO Fr@1000 [facility] Sodium Chloride (Sodium Chloride 0.9%) 1,000 mls @ 60 mls/hr IV .[id number] [facility] Last Admin: 09/01/17 03:40 Dose: 60 mls/hr Levothyroxine Sodium (Synthroid) 25 mcg PO BID [facility] Last Admin: 08/31/17 18:17 Dose: 25 mcg Multivitamins/Minerals (Therapeutic-M Tab) 1 tab PO DAILY [facility] Last Admin: 08/31/17 09:21 Dose: 1 tab Mupirocin (Bactroban Ointment) 0 gm NS BID [facility] Stop: 09/07/17 10:01 Last Admin: 08/31/17 21:46 Dose: 1 applic Unbrc-8-[id number] Ethyl Esters (Lovaza) 1 gm PO BID [facility] Last Admin: 08/31/17 18:16 Dose: 1 gm Pantoprazole Sodium (Protonix Inj) 40 mg IVP Q12 [facility] Last Admin: 08/31/17 21:47 Dose: 40 mg Polyethylene Glycol (Miralax) 17 gm PO BID [facility] Last Admin: 08/31/17 18:16 Dose: 17 gm Zolpidem Tartrate (Ambien) 5 mg PO HS PRN; Protocol PRN Reason: Insomnia Last Admin: 08/30/17 21:03 Dose: 5 mg - Labs Labs: 09/01/17 07:00 09/01/17 07:00 PT 12.6 SECONDS (9.4-12.5) H 08/28/17 08:50 INR 1.09 (0.93-1.08) H 08/28/17 08:50 APTT 25.4 Seconds (25.1-36.5) 08/28/17 08:50 - Additional Findings Additional findings: Constitutional Appears: No Acute Distress, Chronically Ill - Head Exam Head Exam: ATRAUMATIC, NORMOCEPHALIC - Eye Exam Eye Exam: EOMI, Normal appearance - ENT Exam ENT Exam: Mucous Membranes Moist - Respiratory Exam Respiratory Exam: NORMAL BREATHING PATTERN. absent: Respiratory Distress - Cardiovascular Exam Cardiovascular Exam: REGULAR RHYTHM. absent: Tachycardia - GI/Abdominal Exam GI & Abdominal Exam: Distended, Soft. absent: Guarding, Rigid, Tenderness, Rebound Assessment and Plan - Assessment and Plan (Free Text) Assessment: 81 y/o male w/ GI bleed most likely 2/2 stercoral ulcer: -cont to monitor for bleeding -transfuse prn -ADAT -bowel regimen to prevent constipation -further recs per GI -no acute surgical intervention at this time -further recs per Dr. Barrera
[2017-09-01] MEDS: Levothyroxine 25 MCG TAB PO SCH ×2 (09:46→17:46)
[2017-09-01] MEDS: Omega-3-Acid Ethyl Esters 1 GM Cap PO SCH ×2 (09:46→17:46)
[2017-09-01] MEDS: Multivitamin With Minerals Tab PO SCH (09:47)
[2017-09-01] MEDS: POLYETHYLENE GLYCOL 3350 17 GM/Dose PACKET PO SCH ×4 (09:49→21:38)
--- NOTE | 2017-09-01 09:53 | PN ---
DATE: 09/01/2017 The patient is a 81-year-old male. SUBJECTIVE: The patient was seen and examined on the bedside, looking comfortable. No nausea, vomiting or diarrhea. No hematuria or hematochezia. Feels better. No fever, no chills. Did have bowel movement. Most recent bowel movement is brown and not actively bleeding. No swelling of the legs. PHYSICAL EXAMINATION VITAL SIGNS: Temperature 98, heart rate 85, respiratory rate 22, blood pressure 117/67, pulse oximetry 100% on room air. HEENT: Head normocephalic, atraumatic. Eyes: PERRLA. Extraocular muscles intact. Conjunctivae clear. Nose patent. Mucous membrane moist. NECK: Supple. No carotid bruit, JVD, or thyromegaly. CHEST: Bilaterally symmetrical. HEART: S1, S2 positive. LUNGS: Clear to auscultation. ABDOMEN: Soft. Bowel sounds present. No organomegaly. EXTREMITIES: No edema. No cyanosis. NEUROLOGIC: The patient is awake and alert. Moving all four extremities. No focal deficit. MEDICATIONS: Ambien, Cardura, vitamin D, Dulcolax, DuoNeb, Lipitor, Lovaza, MiraLax, Norvasc, Protonix. LABORATORY DATA: Hemoglobin 9.3, hematocrit 26.8, white blood cell 8, platelets 196,000. Sodium 136, potassium 3.7. ASSESSMENT AND PLAN: has gastrointestinal bleeding secondary to severe constipation and mucosal ulcers, has severe gastroparesis, anemia, coronary artery disease, hypertension, hyperlipidemia, chronic lung disease, sleep apnea syndrome. We will continue stool softener and intestinal stimuli as per GI. Gastrointestinal and deep venous thrombosis prophylaxis. Repeat labs. We will follow up. Hannah Ramirez MD MTDD
--- NOTE | 2017-09-01 09:59 | PN ---
DATE: 08/31/2017 SUBJECTIVE: The patient is 81 year old male. The patient is seen and examined at the bedside, looking comfortable, want Ensure four times a day. No nausea or vomiting. Slight abdominal pain. No headache. No dizziness. Slight fever. No swelling of the legs. No dyspnea. PHYSICAL EXAMINATION: VITAL SIGNS: Temperature 100.3, pulse 80, blood pressure 118/48, respiratory rate 20. HEENT: Head normocephalic, atraumatic. Eyes: PERRLA. Extraocular movements are intact. Conjunctivae clear. Nose: Patent. Mucous membranes are moist. NECK: Supple. No carotid bruits. No JVD or thyromegaly. CHEST: Bilaterally symmetrical. HEART: S1 and S2 positive. LUNGS: Clear to auscultation. ABDOMEN: Soft. Bowel sounds are present. No organomegaly. EXTREMITIES: No edema. No cyanosis. NEUROLOGIC: The patient is awake and alert. Moving all 4 extremities with no focal deficits. MEDICATIONS: Ambien, Cardura, vitamin D, Dulcolax, DuoNeb, Lipitor, Lovaza, Miralax, Norvasc, cyproheptadine, Protonix, NS, Synthroid, multivitamins. LABORATORY DATA: White blood cell 9.3, hemoglobin 10.2, hematocrit 29.2, platelets 183. Sodium 133, potassium 4.8, BUN 25, creatinine 0.9. Calcium 8.0. ASSESSMENT AND PLAN: is a 81 year old male with anemia, iron deficiency, status post blood transfusion, history of lower gastrointestinal bleeding, history of coronary artery disease with cardiac stenting, colon resection, hypertension, hypercholesterolemia. Negative bleeding scan. The patient has esophagogastroduodenoscopy and colonoscopy done yesterday which shows active bleeding in the esophagus and rectal area. Surgeon and GI have followup. H and H dropped to 8.2. Still monitoring H and H. Last night has four to five episodes of carlos bleeding with clots. Dr. Osorio was informed. Seen by Dr. Barrera, Dr. Osorio, Dr. Farrar. Vitals improving . We will advance food to full liquid. Monitoring the patient in the ICU. See the trend of H and H. Gastrointestinal and deep venous thrombosis prophylaxis. Repeat labs. We will followup Hannah Ramirez MD [facility] # [id number] ELLY
[2017-09-01] MEDS ORDERED: Potassium Chloride 40 mEq/30 ml LIQ UD PO ONE ×2 (10:04→18:00)
--- NOTE | 2017-09-01 10:41 | CP.PCM.PN ---
<Alonso Pack - Last Filed: 09/01/17 10:38> Subjective - Date & Time of Evaluation Date of Evaluation: 09/01/17 Time of Evaluation: 10:38 - Subjective Subjective: GI Progress Note for Dr. Osorio This patient was seen and examined this Am at bedside n acute events overnight no more GI bleeding. PT advised that he must take laxative during this admission and that he will need maintnance laxatives/stool softeners at home on a regular basis. PT denies any fevers chills chest pain nausea vomiting. Objective - Vital Signs/Intake and Output Vital Signs (last 24 hours): Temp Pulse Resp BP Pulse Ox 99.2 F 75 18 120/57 L 95 09/01/17 07:30 09/01/17 07:30 09/01/17 07:30 09/01/17 09:47 09/01/17 07:30 Intake and Output: 09/01/17 09/01/17 06:59 18:59 Intake Total 2580 Balance 2580 - Medications Medications: Current Medications Albuterol/Ipratropium (Duoneb 3 Mg/0.5 Mg (3 Ml) Ud) 3 ml IH [id number] PRN PRN Reason: Shortness of Breath Amlodipine Besylate (Norvasc) 10 mg PO DAILY [facility] Last Admin: 09/01/17 09:47 Dose: 10 mg Atorvastatin Calcium (Lipitor) 20 mg PO HS [facility] Last Admin: 08/31/17 21:47 Dose: 20 mg Bisacodyl (Dulcolax) 5 mg RC BID [facility] Last Admin: 09/01/17 09:49 Dose: 5 mg Cyproheptadine HCl (Periactin) 4 mg PO TID [facility] Last Admin: 09/01/17 09:46 Dose: 4 mg Doxazosin Mesylate (Cardura) 4 mg PO DAILY [facility] Last Admin: 09/01/17 09:46 Dose: 4 mg Ergocalciferol (Drisdol 50,000 Intl Units Cap) 1 cap PO Fr@1000 [facility] Sodium Chloride (Sodium Chloride 0.9%) 1,000 mls @ 60 mls/hr IV .[id number] [facility] Last Admin: 09/01/17 03:40 Dose: 60 mls/hr Levothyroxine Sodium (Synthroid) 25 mcg PO BID [facility] Last Admin: 09/01/17 09:46 Dose: 25 mcg Multivitamins/Minerals (Therapeutic-M Tab) 1 tab PO DAILY [facility] Last Admin: 09/01/17 09:47 Dose: 1 tab Mupirocin (Bactroban Ointment) 0 gm NS BID [facility] Stop: 09/07/17 10:01 Last Admin: 09/01/17 09:59 Dose: 1 applic [id number] Ethyl Esters (Lovaza) 1 gm PO BID [facility] Last Admin: 09/01/17 09:46 Dose: 1 gm Pantoprazole Sodium (Protonix Inj) 40 mg IVP Q12 [facility] Last Admin: 09/01/17 09:50 Dose: 40 mg Polyethylene Glycol (Miralax) 17 gm PO QID [facility] Last Admin: 09/01/17 09:49 Dose: 17 gm Zolpidem Tartrate (Ambien) 5 mg PO HS PRN; Protocol PRN Reason: Insomnia Last Admin: 08/30/17 21:03 Dose: 5 mg - Labs Labs: 09/01/17 07:00 09/01/17 07:00 PT 12.6 SECONDS (9.4-12.5) H 08/28/17 08:50 INR 1.09 (0.93-1.08) H 08/28/17 08:50 APTT 25.4 Seconds (25.1-36.5) 08/28/17 08:50 - Constitutional Appears: Non-toxic, No Acute Distress - Head Exam Head Exam: ATRAUMATIC, NORMOCEPHALIC - Eye Exam Eye Exam: EOMI - ENT Exam ENT Exam: Mucous Membranes Moist - Respiratory Exam Respiratory Exam: NORMAL BREATHING PATTERN - GI/Abdominal Exam GI & Abdominal Exam: Distended, Soft. absent: Firm, Guarding, Rigid, Tenderness - Neurological Exam Neurological Exam: Alert, Awake - Psychiatric Exam Psychiatric exam: Normal Affect, Normal Mood - Skin Skin Exam: Dry, Intact Assessment and Plan - Assessment and Plan (Free Text) Assessment: 81M with GI bleed secondary to stercoral ulcer Aggressive laxative use Monitor for recurrent GI bleed [place] home laxative regiment D/W Dr. Devon Pack PGY2 <Hernan Osorio V - Last Filed: 09/01/17 23:50> Objective - Vital Signs/Intake and Output Vital Signs (last 24 hours): Temp Pulse Resp BP Pulse Ox 99.3 F 86 18 118/57 L 99 09/01/17 14:00 09/01/17 14:00 09/01/17 14:00 09/01/17 14:00 09/01/17 14:00 Intake and Output: 09/01/17 09/02/17 18:59 06:59 Intake Total 960 420 Output Total 900 1000 Balance 60 -580 - Medications Medications: Current Medications Albuterol/Ipratropium (Duoneb 3 Mg/0.5 Mg (3 Ml) Ud) 3 ml IH [id number] PRN PRN Reason: Shortness of Breath Amlodipine Besylate (Norvasc) 10 mg PO DAILY [facility] Last Admin: 09/01/17 09:47 Dose: 10 mg Atorvastatin Calcium (Lipitor) 20 mg PO HS [facility] Last Admin: 09/01/17 21:38 Dose: 20 mg Bisacodyl (Dulcolax) 5 mg RC BID [facility] Last Admin: 09/01/17 17:45 Dose: 5 mg Cyproheptadine HCl (Periactin) 4 mg PO TID [facility] Last Admin: 09/01/17 17:46 Dose: 4 mg Doxazosin Mesylate (Cardura) 4 mg PO DAILY [facility] Last Admin: 09/01/17 09:46 Dose: 4 mg Ergocalciferol (Drisdol 50,000 Intl Units Cap) 1 cap PO Fr@1000 [facility] Hydrocortisone (Anusol-Hc) 0 gm OH TID [facility] Last Admin: 09/01/17 23:19 Dose: 1 applic Sodium Chloride (Sodium Chloride 0.9%) 1,000 mls @ 60 mls/hr IV .[id number] [facility] Last Admin: 09/01/17 03:40 Dose: 60 mls/hr Levothyroxine Sodium (Synthroid) 25 mcg PO BID [facility] Last Admin: 09/01/17 17:46 Dose: 25 mcg Multivitamins/Minerals (Therapeutic-M Tab) 1 tab PO DAILY [facility] Last Admin: 09/01/17 09:47 Dose: 1 tab Mupirocin (Bactroban Ointment) 0 gm NS BID [facility] Stop: 09/07/17 10:01 Last Admin: 09/01/17 17:44 Dose: 1 applic [id number] Ethyl Esters (Lovaza) 1 gm PO BID [facility] Last Admin: 09/01/17 17:46 Dose: 1 gm Pantoprazole Sodium (Protonix Inj) 40 mg IVP Q12 [facility] Last Admin: 09/01/17 21:38 Dose: 40 mg Polyethylene Glycol (Miralax) 17 gm PO QID [facility] Last Admin: 09/01/17 21:38 Dose: Not Given Zolpidem Tartrate (Ambien) 5 mg PO HS PRN; Protocol PRN Reason: Insomnia Last Admin: 09/01/17 23:44 Dose: 5 mg - Labs Labs: 09/01/17 07:00 09/01/17 07:00 PT 12.6 SECONDS (9.4-12.5) H 08/28/17 08:50 INR 1.09 (0.93-1.08) H 08/28/17 08:50 APTT 25.4 Seconds (25.1-36.5) 08/28/17 08:50 Attending/Attestation - Attestation I have personally seen and examined this patient.: Yes I have fully participated in the care of the patient.: Yes I have reviewed all pertinent clinical information, including history, physical exam and plan: Yes Notes (Text): This is an addendum to GI consult report dictated by the Banking Manager.The patient was seen and examined earlier. Medical records, lab studies, imagings were reviewed. Last 24 hours events reviewed. Agreed with the above treatment plan as outlined in Banking Manager 's notes the with the addition of the following 09/01/17 23:50
[2017-09-01 13:35] LABS: URINE BILIRUBIN NEGATIVE (NEGATIVE); URINE BLOOD NEGATIVE (NEGATIVE); URINE GLUCOSE (UA) 250 mg/dL (NEGATIVE); URINE LEUKOCYTE ESTERASE NEGATIVE Leu/uL (NEGATIVE); URINE PROTEIN NEGATIVE mg/dL (<30 mg/dL); URINE UROBILINOGEN 0.2 E.U./dL (<1 E.U./dL)
[2017-09-01 13:36] LABS: URINE APPEARANCE CLEAR (CLEAR); URINE COLOR YELLOW (YELLOW)
--- NOTE | 2017-09-01 13:56 | PQF ANEMIA ---
This form is a permanent part of the medical record Clarification of your documentation is requested to better reflect the severity of illness and intensity of treatment of your patient. Indicators present Admitted w/ rectal bleed, likely 2nd to stercoral ulcer. Transfused w/ 2 UPRBC. Please document if this is acute blood loss anemia [x] Anemia [x] Drop in H&H from []___ to []___ [] Hypotension [x] GI Bleed []x Transfusion(s) [] Acute bleed other sites [] Tachycardia [] Surgical Procedure Blood Loss (expected not a complication) Other:[] Location in the medical record that reflects the above clinical findings: [x] GI consuly, EGD, Sigmoidoscopy Treatment Provided: [] Transfuse 2 U PRBC PHYSICIAN'S RESPONSE Based on your medical judgment of the clinical indicators outlined above, are you treating this patient for a known or suspected: [] Acute blood loss anemia [] Chronic blood loss anemia [x] Acute on Chronic blood loss anemia [] Anemia due to malignancy [] Anemia due to chemotherapy or radiation therapy [] Anemia of Chronic Disease, please specify: [] [] Other, please indicate type of anemia []____ [] If Unable to Determine, please check the box, sign and date. Present On Admission (POA) Indicator: [] Present at the time of admission [] Not present at the time of admission [] Clinically Undetermined In responding to this query, please exercise your independent professional judgment. The fact that a question is asked does not imply that any particular answer is desired or expected. Thank you for your clarification on this documentation. If you have any questions please call:[ ] [phone] * Thank you, [ ]Shala Enriquez RN CDS optimization consultant [employer]
--- NOTE | 2017-09-01 22:24 | CP.PCM.PN ---
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 Pt recently discharged from [facility] on 08/08/17 and re-admitted on 08/28/17 for rectal bleeding. Hgb dropped to 7.8 and is s/p 2 units of PRBC. Endoscopy revealed grade C esophageal ulcerations and gastroparesis. Colonscopy revealed rectal ulcerations. Fecal impaction noted again. Today, pt seen at bedside. No complaints. Denies any shortness of breath , chest pain, headache, fever, chills, diarrhea, constipation, paraesthesias, or urinary changes. Objective - Vital Signs/Intake and Output Vital Signs (last 24 hours): Temp Pulse Resp BP Pulse Ox 99.3 F 86 18 118/57 L 99 09/01/17 14:00 09/01/17 14:00 09/01/17 14:00 09/01/17 14:00 09/01/17 14:00 Intake and Output: 09/01/17 09/02/17 18:59 06:59 Intake Total 960 Output Total 900 Balance 60 - Medications Medications: Current Medications Albuterol/Ipratropium (Duoneb 3 Mg/0.5 Mg (3 Ml) Ud) 3 ml IH [id number] PRN PRN Reason: Shortness of Breath Amlodipine Besylate (Norvasc) 10 mg PO DAILY [facility] Last Admin: 09/01/17 09:47 Dose: 10 mg Atorvastatin Calcium (Lipitor) 20 mg PO HS [facility] Last Admin: 09/01/17 21:38 Dose: 20 mg Bisacodyl (Dulcolax) 5 mg RC BID [facility] Last Admin: 09/01/17 17:45 Dose: 5 mg Cyproheptadine HCl (Periactin) 4 mg PO TID [facility] Last Admin: 09/01/17 17:46 Dose: 4 mg Doxazosin Mesylate (Cardura) 4 mg PO DAILY [facility] Last Admin: 09/01/17 09:46 Dose: 4 mg Ergocalciferol (Drisdol 50,000 Intl Units Cap) 1 cap PO Fr@1000 [facility] Hydrocortisone (Anusol-Hc) 0 gm [place] TID [facility] Sodium Chloride (Sodium Chloride 0.9%) 1,000 mls @ 60 mls/hr IV .[id number] [facility] Last Admin: 09/01/17 03:40 Dose: 60 mls/hr Levothyroxine Sodium (Synthroid) 25 mcg PO BID [facility] Last Admin: 09/01/17 17:46 Dose: 25 mcg Multivitamins/Minerals (Therapeutic-M Tab) 1 tab PO DAILY [facility] Last Admin: 09/01/17 09:47 Dose: 1 tab Mupirocin (Bactroban Ointment) 0 gm NS BID [facility] Stop: 09/07/17 10:01 Last Admin: 09/01/17 17:44 Dose: 1 applic Ivysb-4-Vmuk Ethyl Esters (Lovaza) 1 gm PO BID [facility] Last Admin: 09/01/17 17:46 Dose: 1 gm Pantoprazole Sodium (Protonix Inj) 40 mg IVP Q12 [facility] Last Admin: 09/01/17 21:38 Dose: 40 mg Polyethylene Glycol (Miralax) 17 gm PO QID [facility] Last Admin: 09/01/17 21:38 Dose: Not Given Zolpidem Tartrate (Ambien) 5 mg PO HS PRN; Protocol PRN Reason: Insomnia Last Admin: 08/30/17 21:03 Dose: 5 mg - Labs Labs: 09/01/17 07:00 09/01/17 07:00 PT 12.6 SECONDS (9.4-12.5) H 08/28/17 08:50 INR 1.09 (0.93-1.08) H 08/28/17 08:50 APTT 25.4 Seconds (25.1-36.5) 08/28/17 08:50 - Constitutional Appears: Chronically Ill - Head Exam Head Exam: ATRAUMATIC, NORMAL INSPECTION, NORMOCEPHALIC - Eye Exam Eye Exam: EOMI, Normal appearance, PERRL Pupil Exam: NORMAL ACCOMODATION, PERRL - ENT Exam ENT Exam: Mucous Membranes Moist, Normal Exam - Neck Exam Neck Exam: Full ROM, Normal Inspection. absent: Lymphadenopathy - Respiratory Exam Respiratory Exam: Clear to Ausculation Bilateral, NORMAL BREATHING PATTERN - Cardiovascular Exam Cardiovascular Exam: REGULAR RHYTHM, +S1, +S2. absent: Murmur - GI/Abdominal Exam GI & Abdominal Exam: Distended, Firm - Extremities Exam Extremities Exam: Full ROM, Normal Capillary Refill, Normal Inspection. absent : Joint Swelling, Pedal Edema - Back Exam Back Exam: NORMAL INSPECTION - Neurological Exam Neurological Exam: Alert, Awake, Oriented x3 - Psychiatric Exam Psychiatric exam: Normal Affect, Normal Mood - Skin Skin Exam: Dry, Intact, Normal Color, Warm Assessment and Plan (1) History of blood transfusion Status: Acute (2) Fecal impaction Status: Acute (3) Gastroparesis Status: Acute (4) Ulcer of anus and rectum Status: Acute (5) Stercoral ulcer of anus Status: Acute (6) MRSA nasal colonization Status: Acute (7) GI bleed Status: Acute (8) Abdominal pain Status: Acute (9) Anemia Status: Acute (10) Rectal bleeding Status: Acute - Assessment and Plan (Free Text) Plan: Labs ordered. Trending Hgb is 9.3. No surgical intervention at this time. Bactroban for (+) MRSA nares. Advance diet per GI. Pt is tolerating well. VTE/ GI prophlyaxis. PT/OT onboard. Consults: GI - Dr. Osorio Nephro - Dr. Fletcher Pulmo - Dr. DelarosaLeni Surgery - Dr. Barrera Reviewed: CT abd/pelvis = chronic constipation with feval impactation CXR = WNL GI bleed scan = WNL, no active bleed ECG = NSR, low voltage QRS limb leads, electrical artifact V 1,2 <Hannah Ramirez - Last Filed: 09/01/17 23:30> Objective - Vital Signs/Intake and Output Vital Signs (last 24 hours): Temp Pulse Resp BP Pulse Ox 99.3 F 86 18 118/57 L 99 09/01/17 14:00 09/01/17 14:00 09/01/17 14:00 09/01/17 14:00 09/01/17 14:00 Intake and Output: 09/01/17 09/02/17 18:59 06:59 Intake Total 960 420 Output Total 900 1000 Balance 60 -580 - Medications Medications: Current Medications Albuterol/Ipratropium (Duoneb 3 Mg/0.5 Mg (3 Ml) Ud) 3 ml IH [id number] PRN PRN Reason: Shortness of Breath Amlodipine Besylate (Norvasc) 10 mg PO DAILY [facility] Last Admin: 09/01/17 09:47 Dose: 10 mg Atorvastatin Calcium (Lipitor) 20 mg PO HS [facility] Last Admin: 09/01/17 21:38 Dose: 20 mg Bisacodyl (Dulcolax) 5 mg RC BID [facility] Last Admin: 09/01/17 17:45 Dose: 5 mg Cyproheptadine HCl (Periactin) 4 mg PO TID [facility] Last Admin: 09/01/17 17:46 Dose: 4 mg Doxazosin Mesylate (Cardura) 4 mg PO DAILY [facility] Last Admin: 09/01/17 09:46 Dose: 4 mg Ergocalciferol (Drisdol 50,000 Intl Units Cap) 1 cap PO Fr@1000 [facility] Hydrocortisone (Anusol-Hc) 0 gm [place] TID [facility]PL[facility] Last Admin: 09/01/17 23:19 Dose: 1 applic Sodium Chloride (Sodium Chloride 0.9%) 1,000 mls @ 60 mls/hr IV .[id number] REPLACED [facility] Last Admin: 09/01/17 03:40 Dose: 60 mls/hr Levothyroxine Sodium (Synthroid) 25 mcg PO BID [facility] Last Admin: 09/01/17 17:46 Dose: 25 mcg Multivitamins/Minerals (Therapeutic-M Tab) 1 tab PO DAILY [facility] Last Admin: 09/01/17 09:47 Dose: 1 tab Mupirocin (Bactroban Ointment) 0 gm NS BID [facility] Stop: 09/07/17 10:01 Last Admin: 09/01/17 17:44 Dose: 1 applic Zfwos-9-Bfuo Ethyl Esters (Lovaza) 1 gm PO BID [facility] Last Admin: 09/01/17 17:46 Dose: 1 gm Pantoprazole Sodium (Protonix Inj) 40 mg IVP Q12 [facility] Last Admin: 09/01/17 21:38 Dose: 40 mg Polyethylene Glycol (Miralax) 17 gm PO QID [facility] Last Admin: 09/01/17 21:38 Dose: Not Given Zolpidem Tartrate (Ambien) 5 mg PO HS PRN; Protocol PRN Reason: Insomnia Last Admin: 08/30/17 21:03 Dose: 5 mg - Labs Labs: 09/01/17 07:00 09/01/17 07:00 PT 12.6 SECONDS (9.4-12.5) H 08/28/17 08:50 INR 1.09 (0.93-1.08) H 08/28/17 08:50 APTT 25.4 Seconds (25.1-36.5) 08/28/17 08:50 Assessment and Plan - Assessment and Plan (Free Text) Plan: 81 yr male w/ history of arthritis, DM II, CAD (stents x2), HTN, Hyperlipidemia, Hiatal hernia & L inguinal hernia w/ 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 Pt recently discharged from [facility] on 08/08/17 and re-admitted on 08/28/17 for rectal bleeding. Hgb dropped to 7.8 and is s/p 2 units of PRBC. Endoscopy revealed grade C esophageal ulcerations and gastroparesis. Colonscopy revealed rectal ulcerations. Fecal impaction noted again. Today, pt seen at bedside. No complaints. Denies any shortness of breath , chest pain, headache, fever, chills, diarrhea, constipation, paraesthesias, or urinary changes.pt is seen and examined at bed side . looking comfortable , agreed all above , chart , meds and labs . will f/u
[2017-09-01] MEDS: Hydrocortisone 2.5% Rectal Cream(30 gm) PR SCH (23:19)
--- NOTE | 2017-09-01 23:40 | PN ---
DATE: 09/01/2017 PULMONARY PROGRESS NOTE REFERRING PHYSICIAN: Hannha Ramirez MD. SUBJECTIVE: He is lying in the bed, head at 45 degrees. Feels better. No headache. No rhinitis. No nausea. No vomiting. Abdominal pain is better. Has a GoLYTELY with good bowel movement. No leg swelling. OBJECTIVE: GENERAL: In no acute distress. VITAL SIGNS: Temp is 99, heart rate is 86, respiratory rate is 18, blood pressure 118/57, pulse ox 99% on room air. HEENT: Moist mucous membrane. No ulcer or thrush noted. NECK: Supple. No JVD. LUNGS: Have a fair airflow with rhonchi. HEART: S1 and S2. ABDOMEN: Soft, nontender and nondistended. EXTREMITIES: There is no edema. NEUROLOGIC: Awake and alert, follows simple command. MEDICATIONS: He is on Ambien 5 mg at bedtime, p.r.n., Bactroban to affected area twice a day, Cardura 4 mg daily, vitamin D 50,000 units weekly, Dulcolax 5 mg rectally twice a day, DuoNeb q. 6 hours p.r.n., Lipitor 20 mg daily, omega-3 at 1 g twice a day, MiraLax 17 g four times daily, Norvasc 10 mg daily, Periactin 4 mg three times a day, Protonix 40 mg twice a day, IV fluid normal saline 60 mL/hour, Synthroid 25 mcg twice a day, multivitamins daily. LABORATORY DATA: Shows hemoglobin 8.7, hematocrit 25.0, WBC 5.9, platelet count is 193. Sodium 136, potassium 2.2, chloride 105, bicarbonate 26, BUN is 6, creatinine 0.8, glucose is 144, calcium is 8.2, magnesium 1.9. Microbiology: Blood cultures, no growth. Naris culture, there is no growth. IMPRESSION AND PLAN: Gastrointestinal bleed, has intestinal mucosal ulcers, gastroparesis, anemia, coronary artery disease, hypertension, hyperlipidemia, chronic lung disease and sleep apnea syndrome. Continue p.r.n. bronchodilator, continue stool softener, Gastroenterology followup. Gastric prophylaxis. Sequential compression device to lower extremities. Follow up H and H. Thank you and we will follow with you. Dakotah Farrar MD [facility] # [phone]
--- NOTE | 2017-09-02 00:53 | CP.PCM.PN ---
Subjective - Date & Time of Evaluation Date of Evaluation: 09/02/17 Time of Evaluation: 00:51 - Subjective Subjective: Patient was seen at bedside. He complained of anal pain and requested pain medication. I ordered tylenol 640 mg PO which he refused to accept and requested a stronger pain medication. Had received Mrialax and Golytely for constipation which have been effective. He was prescribed to have application locally of HC 1%. Still has pain in the anal area. Tramodol 50 mg PO was ordered. Pertinent medical record was reviewed. This 81 year old male is admitted Has PMH of Pulmonary artery disease, arthritis, DM II, HTN, HLD, dizziness , cataract surgery, Hiatus hernia, GI bleeding, S/P abdominal surgery with Mesh replacement, coronary stent placement, colon resection. Objective - Vital Signs/Intake and Output Vital Signs (last 24 hours): Temp Pulse Resp BP Pulse Ox 99.3 F 86 18 118/57 L 99 09/01/17 14:00 09/01/17 14:00 09/01/17 14:00 09/01/17 14:00 09/01/17 14:00 Intake and Output: 09/01/17 09/02/17 18:59 06:59 Intake Total 960 420 Output Total 900 1000 Balance 60 -580 - Medications Medications: Current Medications Albuterol/Ipratropium (Duoneb 3 Mg/0.5 Mg (3 Ml) Ud) 3 ml IH [id number] PRN PRN Reason: Shortness of Breath Amlodipine Besylate (Norvasc) 10 mg PO DAILY [facility] Last Admin: 09/01/17 09:47 Dose: 10 mg Atorvastatin Calcium (Lipitor) 20 mg PO HS [facility] Last Admin: 09/01/17 21:38 Dose: 20 mg Bisacodyl (Dulcolax) 5 mg RC BID [facility] Last Admin: 09/01/17 17:45 Dose: 5 mg Cyproheptadine HCl (Periactin) 4 mg PO TID [facility] Last Admin: 09/01/17 17:46 Dose: 4 mg Doxazosin Mesylate (Cardura) 4 mg PO DAILY [facility] Last Admin: 09/01/17 09:46 Dose: 4 mg Ergocalciferol (Drisdol 50,000 Intl Units Cap) 1 cap PO Fr@1000 [facility] Hydrocortisone (Anusol-Hc) 0 gm LA TID [facility] Last Admin: 09/01/17 23:19 Dose: 1 applic Sodium Chloride (Sodium Chloride 0.9%) 1,000 mls @ 60 mls/hr IV .[id number] [facility] Last Admin: 09/01/17 03:40 Dose: 60 mls/hr Levothyroxine Sodium (Synthroid) 25 mcg PO BID [facility] Last Admin: 09/01/17 17:46 Dose: 25 mcg Multivitamins/Minerals (Therapeutic-M Tab) 1 tab PO DAILY [facility] Last Admin: 09/01/17 09:47 Dose: 1 tab Mupirocin (Bactroban Ointment) 0 gm NS BID [facility] Stop: 09/07/17 10:01 Last Admin: 09/01/17 17:44 Dose: 1 applic [id number] Ethyl Esters (Lovaza) 1 gm PO BID [facility] Last Admin: 09/01/17 17:46 Dose: 1 gm Pantoprazole Sodium (Protonix Inj) 40 mg IVP Q12 [facility] Last Admin: 09/01/17 21:38 Dose: 40 mg Polyethylene Glycol (Miralax) 17 gm PO QID [facility] Last Admin: 09/01/17 21:38 Dose: Not Given Zolpidem Tartrate (Ambien) 5 mg PO HS PRN; Protocol PRN Reason: Insomnia Last Admin: 09/01/17 23:44 Dose: 5 mg - Labs Labs: 09/01/17 07:00 09/01/17 07:00 PT 12.6 SECONDS (9.4-12.5) H 08/28/17 08:50 INR 1.09 (0.93-1.08) H 08/28/17 08:50 APTT 25.4 Seconds (25.1-36.5) 08/28/17 08:50 Micro Results 08/28/17 09:20 Blood-Venous Blood Culture - Preliminary NO GROWTH AFTER 4 DAYS 08/28/17 08:50 Blood-Venous Blood Culture - Preliminary NO GROWTH AFTER 4 DAYS 08/29/17 19:00 Naris MRSA Culture (Admit) - Final Most Recent Lab Values WBC 5.9 10^3/ul (4.5-11.0) D 09/01/17 07:00 RBC 2.89 10^6/uL (3.5-6.1) L 09/01/17 07:00 Hgb 8.7 g/dL (14.0-18.0) L 09/01/17 07:00 Hct 25.0 % (42.0-52.0) L 09/01/17 07:00 MCV 86.5 fl (80.0-105.0) 09/01/17 07:00 MCH 30.1 pg (25.0-35.0) 09/01/17 07:00 MCHC 34.8 g/dl (31.0-37.0) 09/01/17 07:00 RDW 16.8 % (11.5-14.5) H 09/01/17 07:00 Plt Count 193 10^3/uL (120.0-450.0) 09/01/17 07:00 MPV 8.3 fl (7.0-11.0) 09/01/17 07:00 Gran % 50.3 % (50.0-68.0) 09/01/17 07:00 Lymph % (Auto) 32.3 % (22.0-35.0) 09/01/17 07:00 Cache % (Auto) 6.9 % (1.0-6.0) H 09/01/17 07:00 Eos % (Auto) 10.0 % (1.5-5.0) H 09/01/17 07:00 Baso % (Auto) 0.5 % (0.0-3.0) 09/01/17 07:00 Gran # 2.97 (1.4-6.5) 09/01/17 07:00 Lymph # (Auto) 1.9 (1.2-3.4) 09/01/17 07:00 Cache # (Auto) 0.4 (0.1-0.6) 09/01/17 07:00 Eos # (Auto) 0.6 (0.0-0.7) 09/01/17 07:00 Baso # (Auto) 0.03 K/mm3 (0.0-2.0) 09/01/17 07:00 PT 12.6 SECONDS (9.4-12.5) H 08/28/17 08:50 INR 1.09 (0.93-1.08) H 08/28/17 08:50 APTT 25.4 Seconds (25.1-36.5) 08/28/17 08:50 Sodium 136 mmol/L (132-148) 09/01/17 07:00 Potassium 3.2 mmol/L (3.6-5.0) L 09/01/17 07:00 Chloride 105 mmol/L (98-107) 09/01/17 07:00 Carbon Dioxide 26 mmol/L (21-33) 09/01/17 07:00 Anion Gap 8 (10-20) L 09/01/17 07:00 BUN 6 mg/dL (7-21) L 09/01/17 07:00 Creatinine 0.8 mg/dl (0.8-1.5) 09/01/17 07:00 Est GFR ( Amer) > 60 09/01/17 07:00 Est GFR (Non-Af Amer) > 60 09/01/17 07:00 POC Glucose (mg/dL) 144 mg/dL (65-110) H 08/31/17 21:50 Random Glucose 101 mg/dL (70-110) 09/01/17 07:00 Hemoglobin A1c 5.7 % (4.2-6.5) 08/29/17 08:00 Calcium 8.2 mg/dL (8.4-10.5) L 09/01/17 07:00 Magnesium 1.9 mg/dL (1.7-2.2) 09/01/17 07:00 Iron 39 ug/dL (45-180) L 08/29/17 05:30 TIBC 190 ug/dL (261-462) L 08/29/17 05:30 % Saturation 21 % (20-55) 08/29/17 05:30 Total Bilirubin 0.7 mg/dL (0.2-1.3) 08/31/17 05:30 AST 23 U/L (17-59) 08/31/17 05:30 ALT 25 U/L (7-56) 08/31/17 05:30 Alkaline Phosphatase 46 U/L (38-126) 08/31/17 05:30 Total Creatine Kinase 44 U/L (35-230) 08/28/17 08:50 Troponin I < 0.01 ng/mL 08/28/17 08:50 Total Protein 4.9 g/dL (5.8-8.3) L 08/31/17 05:30 Albumin 2.3 g/dL (3.0-4.8) L 08/31/17 05:30 Globulin 2.5 gm/dL 08/31/17 05:30 Albumin/Globulin Ratio 0.9 (1.1-1.8) L 08/31/17 05:30 Triglycerides 51 mg/dL (35-160) 08/29/17 05:30 Cholesterol 80 mg/dL (130-200) L 08/29/17 05:30 LDL Cholesterol Direct < 30 mg/dL (0-129) 08/29/17 05:30 HDL Cholesterol 37 mg/dL (29-60) 08/29/17 05:30 Lipase 64 U/L (23-300) 08/28/17 08:50 Vitamin B12 730 pg/mL (239-931) 08/29/17 05:30 Folate > 20.0 ng/mL 08/29/17 05:30 TSH 3rd Generation 2.86 mIU/mL (0.46-4.68) 08/29/17 05:30 Urine Color Yellow (YELLOW) 09/01/17 13:15 Urine Appearance Clear (CLEAR) 09/01/17 13:15 Urine pH 7.0 (4.7-8.0) 09/01/17 13:15 Ur Specific [place] 1.015 (1.005-1.035) 09/01/17 13:15 Urine Protein Negative mg/dL (<30 mg/dL) 09/01/17 13:15 Urine Glucose (UA) 250 mg/dL (NEGATIVE) H 09/01/17 13:15 Urine Ketones Negative mg/dL (NEGATIVE) 09/01/17 13:15 Urine Blood Negative (NEGATIVE) 09/01/17 13:15 Urine Nitrate Negative (NEGATIVE) 09/01/17 13:15 Urine Bilirubin Negative (NEGATIVE) 09/01/17 13:15 Urine Urobilinogen 0.2 E.U./dL (<1 E.U./dL) 09/01/17 13:15 Ur Leukocyte Esterase Negative [place]/uL (NEGATIVE) 09/01/17 13:15 Blood Type A POSITIVE 08/28/17 08:50 Antibody Screen Negative 08/28/17 08:50 Crossmatch See Detail 08/28/17 19:37 BBK History Checked Patient has bt 08/28/17 08:50 - Constitutional Appears: Well, No Acute Distress - Head Exam Head Exam: ATRAUMATIC, NORMAL INSPECTION, NORMOCEPHALIC - Eye Exam Eye Exam: Normal appearance - ENT Exam ENT Exam: Normal External Ear Exam - Neck Exam Neck Exam: Normal Inspection - Respiratory Exam Respiratory Exam: NORMAL BREATHING PATTERN - Cardiovascular Exam Cardiovascular Exam: absent: JVD - GI/Abdominal Exam GI & Abdominal Exam: absent: Distended - Rectal Exam Rectal Exam: Deferred - Exam Additional comments: Deferred. - Extremities Exam Extremities Exam: Normal Inspection - Back Exam Back Exam: NORMAL INSPECTION - Neurological Exam Neurological Exam: Alert, Awake, Oriented x3 - Psychiatric Exam Psychiatric exam: Normal Affect, Normal Mood - Skin Skin Exam: Normal Color Assessment and Plan - Assessment and Plan (Free Text) Assessment: Anal pain. Constipation. Plan: Tylenol 650 mg PO x 1. Ultram 50 mg PO x 1. Continue present management.
[2017-09-02 07:54] LABS: HEMOGLOBIN 8.1 g/dL (14.0-18.0); MEAN CELL VOLUME 86.3 fl (80.0-105.0); MEAN CORPUSCULAR HEMOGLOBIN 30.8 pg (25.0-35.0); MEAN CORPUSCULAR HGB CONC 35.7 g/dl (31.0-37.0); MEAN PLATELET VOLUME 8.3 fl (7.0-11.0); RBC 2.63 10^6/uL (3.5-6.1); RED CELL DISTRIBUTION WIDTH 16.2 % (11.5-14.5); WHITE BLOOD COUNT 7.7 10^3/ul (4.5-11.0)
[2017-09-02 08:10] LABS: BLOOD UREA NITROGEN 4 mg/dL (7-21); CALCIUM 7.7 mg/dL (8.4-10.5); GFR AFRICAN-AMERICAN > 60; GFR NON-AFRICAN AMERICAN > 60
[2017-09-02] MEDS: Hydrocortisone 2.5% Rectal Cream(30 gm) PR SCH ×3 (10:03→18:40)
[2017-09-02] MEDS: Omega-3-Acid Ethyl Esters 1 GM Cap PO SCH ×2 (10:03→18:39)
[2017-09-02] MEDS: POLYETHYLENE GLYCOL 3350 17 GM/Dose PACKET PO SCH ×3 (10:03→18:39)
[2017-09-02] MEDS: Levothyroxine 25 MCG TAB PO SCH ×2 (10:04→18:39)
[2017-09-02] MEDS: Multivitamin With Minerals Tab PO SCH (10:17)
--- NOTE | 2017-09-02 11:14 | CP.PCM.PN ---
<Jose Park - Last Filed: 09/02/17 11:10> Subjective - Date & Time of Evaluation Date of Evaluation: 09/02/17 Time of Evaluation: 09:00 - Subjective Subjective: GI Consult Note Dr. Osorio Pt was seen and examined at bedside. No acute complaints at this time. No acute or adverse events overnight as per nursing staff. Pt denied fever, chills, sob, chest pains, abdominal pains, nausea, vomiting, dysuria, melena. Objective - Vital Signs/Intake and Output Vital Signs (last 24 hours): Temp Pulse Resp BP Pulse Ox 97.9 F 77 20 123/65 98 09/02/17 07:38 09/02/17 07:38 09/02/17 07:38 09/02/17 10:04 09/02/17 07:38 Intake and Output: 09/02/17 09/02/17 06:59 18:59 Intake Total 2040 Output Total 2000 Balance 40 - Medications Medications: Current Medications Albuterol/Ipratropium (Duoneb 3 Mg/0.5 Mg (3 Ml) Ud) 3 ml IH [id number] PRN PRN Reason: Shortness of Breath Amlodipine Besylate (Norvasc) 10 mg PO DAILY [facility] Last Admin: 09/02/17 10:04 Dose: 10 mg Atorvastatin Calcium (Lipitor) 20 mg PO HS [facility] Last Admin: 09/01/17 21:38 Dose: 20 mg Bisacodyl (Dulcolax) 5 mg RC BID [facility] Last Admin: 09/02/17 10:22 Dose: 5 mg Cyproheptadine HCl (Periactin) 4 mg PO TID [facility] Last Admin: 09/02/17 10:22 Dose: 4 mg Doxazosin Mesylate (Cardura) 4 mg PO DAILY [facility] Last Admin: 09/02/17 10:03 Dose: 4 mg Ergocalciferol (Drisdol 50,000 Intl Units Cap) 1 cap PO Fr@1000 [facility] Hydrocortisone (Anusol-Hc) [address] TID [facility] Last Admin: 09/02/17 10:03 Dose: 1 applic Sodium Chloride (Sodium Chloride 0.9%) 1,000 mls @ 60 mls/hr IV .[id number] [facility] Last Admin: 09/01/17 03:40 Dose: 60 mls/hr Levothyroxine Sodium (Synthroid) 25 mcg PO BID [facility] Last Admin: 09/02/17 10:04 Dose: 25 mcg Multivitamins/Minerals (Therapeutic-M Tab) 1 tab PO DAILY [facility] Last Admin: 09/02/17 10:17 Dose: 1 tab Mupirocin (Bactroban Ointment) 0 gm NS BID [facility] Stop: 09/07/17 10:01 Last Admin: 09/02/17 10:02 Dose: 1 applic [id number]-4-[id number] Ethyl Esters (Lovaza) 1 gm PO BID [facility] Last Admin: 09/02/17 10:03 Dose: 1 gm Pantoprazole Sodium (Protonix Inj) 40 mg IVP Q12 [facility] Last Admin: 09/02/17 10:17 Dose: 40 mg Polyethylene Glycol (Miralax) 17 gm PO QID [facility] Last Admin: 09/02/17 10:03 Dose: 17 gm Zolpidem Tartrate (Ambien) 5 mg PO HS PRN; Protocol PRN Reason: Insomnia Last Admin: 09/01/17 23:44 Dose: 5 mg - Labs Labs: 09/02/17 07:20 09/02/17 07:20 PT 12.6 SECONDS (9.4-12.5) H 08/28/17 08:50 INR 1.09 (0.93-1.08) H 08/28/17 08:50 APTT 25.4 Seconds (25.1-36.5) 08/28/17 08:50 - Constitutional Appears: No Acute Distress, Cachectic, Chronically Ill - Head Exam Head Exam: ATRAUMATIC, NORMAL INSPECTION, NORMOCEPHALIC - Eye Exam Eye Exam: EOMI, Normal appearance, PERRL Pupil Exam: NORMAL ACCOMODATION, PERRL - ENT Exam ENT Exam: Mucous Membranes Moist, Normal Exam - Respiratory Exam Respiratory Exam: Clear to Ausculation Bilateral, NORMAL BREATHING PATTERN - Cardiovascular Exam Cardiovascular Exam: REGULAR RHYTHM, +S1, +S2. absent: Murmur - GI/Abdominal Exam GI & Abdominal Exam: Soft, Normal Bowel Sounds. absent: Tenderness - Back Exam Back Exam: NORMAL INSPECTION - Neurological Exam Neurological Exam: Alert, Awake, CN II-XII Intact, Oriented x3 - Psychiatric Exam Psychiatric exam: Normal Affect, Normal Mood - Skin Skin Exam: Dry, Intact, Normal Color, Warm Assessment and Plan - Assessment and Plan (Free Text) Assessment: GI bleed secondary to stercoral ulcer external hemorrhoids rectal impaction of stool Esophageal Ulcer duodenal ulcer diverticulosis hx colon resection CAD s/p stent DM Hypothyroidism HTN urinary retention Plan: H&H stable PT/OT for dc planning Monitor for recurrent GI bleed Bowel Regimen: Miralax BID, titrate to 2-3 bm/day. Colace BID, continue Anusol Discussed with Dr. Osorio <Hernan Osorio V - Last Filed: 09/02/17 23:47> Objective - Vital Signs/Intake and Output Vital Signs (last 24 hours): Temp Pulse Resp BP Pulse Ox 97.8 F 80 18 112/53 L 99 09/02/17 14:55 09/02/17 14:55 09/02/17 14:55 09/02/17 14:55 09/02/17 14:55 Intake and Output: 09/02/17 09/03/17 18:59 06:59 Intake Total 480 Output Total 450 Balance 30 - Labs Labs: 09/02/17 11:30 09/02/17 07:20 PT 12.6 SECONDS (9.4-12.5) H 08/28/17 08:50 INR 1.09 (0.93-1.08) H 08/28/17 08:50 APTT 25.4 Seconds (25.1-36.5) 08/28/17 08:50 Attending/Attestation - Attestation I have personally seen and examined this patient.: Yes I have fully participated in the care of the patient.: Yes I have reviewed all pertinent clinical information, including history, physical exam and plan: Yes Notes (Text): This is an addendum to GI progress report dictated by the [employer] Vice President.The patient was seen and examined earlier. Medical records, lab studies, imagings were reviewed. Last 24 hours events reviewed. Agreed with the above treatment plan as outlined in [employer] Vice President 's notes the with the addition of the following No further episodes of bleeding per rectum has some loose bowel movements on MiraLAX Severe constipation with history of coronary ulceration Gastroparesis with gastric bezoar Esophageal ulcerations Gastroparesis Recommendation high-dose PPI Repeat EGD in 6-8 weeks' time Follow-up hemoglobin 09/02/17 23:42
[2017-09-02 11:42] LABS: HEMOGLOBIN 8.2 g/dL (14.0-18.0)
[2017-09-02 14:55] VITALS: BP 112/53; PULSE 80; RESP 18; TEMP 97.8; O2SAT 99
--- NOTE | 2017-09-02 17:00 | CP.PCM.CON ---
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 He developed some urinary retention and a Torres catheter was placed. Cultures were sent which are now showing Staph aureus. He denies fever or chills, no nausea or vomiting, no chest pain, no SOB, no headache or dizziness, no abdominal pain , no diarrhea, no dysuria. The torres catheter has been removed and we are awaiting to see if the patient is able to urinate freely. Infectious Diseases consult is requested to further evaluate and manage. Review of Systems - Review of Systems All systems: reviewed and no additional remarkable complaints except (as per HPI ) Past Patient History - Infectious Disease Hx of Infectious Diseases: None - Tetanus Immunizations Tetanus Immunization: Unknown - Past Social History Smoking Status: Former Smoker - CARDIAC Hx Hypertension: Yes - PULMONARY Hx Respiratory Disorders: Yes Hx Chronic Obstructive Pulmonary Disease (COPD): Yes - NEUROLOGICAL Hx Dizziness: Yes Hx Seizures: (denies) - HEENT Hx Cataracts: Yes (b/l sx) - RENAL Hx Kidney Stones: No - ENDOCRINE/METABOLIC Hx Diabetes Mellitus Type 2: Yes Hx Hypothyroidism: Yes - HEMATOLOGICAL/ONCOLOGICAL Hx Blood Transfusions: Yes Hx Blood Transfusion Reaction: No - INTEGUMENTARY Other/Comment: ble skin discolorations, healed abd surgical scars, dry scab to left knee and lump to left scalp from recent fall - MUSCULOSKELETAL/RHEUMATOLOGICAL Hx Arthritis: Yes - GASTROINTESTINAL Hx Gastrointestinal Disorders: Yes (hiatal hernia, gi bleed) Other/Comment: egd 03/27/17 dx healed duodenal ulcers, weight loss and poor appetite, "sometimes I have abd pain where I had surgery. pt stated - GENITOURINARY/GYNECOLOGICAL Other/Comment: sometimes has problem passing urine since last hospitilization which was beginning of august 2017 - PSYCHIATRIC Hx Psychophysiologic Disorder: No Hx Substance Use: No - SURGICAL HISTORY Hx Surgeries: Yes - ANESTHESIA Hx Anesthesia Reactions: No Hx Malignant Hyperthermia: No Meds Allergies/Adverse Reactions: Allergies Allergy/AdvReac Type Severity Reaction Status Date / Time No Known Allergies Allergy Verified 08/04/17 21:40 - Medications Medications: Current Medications Albuterol/Ipratropium (Duoneb 3 Mg/0.5 Mg (3 Ml) Ud) 3 ml IH [id number] PRN PRN Reason: Shortness of Breath Amlodipine Besylate (Norvasc) 10 mg PO DAILY [facility] Last Admin: 09/02/17 10:04 Dose: 10 mg Atorvastatin Calcium (Lipitor) 20 mg PO HS [facility] Last Admin: 09/01/17 21:38 Dose: 20 mg Bisacodyl (Dulcolax) 5 mg RC BID [facility] Last Admin: 09/02/17 10:22 Dose: 5 mg Cyproheptadine HCl (Periactin) 4 mg PO TID [facility] Last Admin: 09/02/17 10:22 Dose: 4 mg Doxazosin Mesylate (Cardura) 4 mg PO DAILY [facility] Last Admin: 09/02/17 10:03 Dose: 4 mg Ergocalciferol (Drisdol 50,000 Intl Units Cap) 1 cap PO Fr@1000 [facility] Hydrocortisone (Anusol-Hc) 0 gm DC TID [facility] Last Admin: 09/02/17 10:03 Dose: 1 applic Sodium Chloride (Sodium Chloride 0.9%) 1,000 mls @ 60 mls/hr IV .[id number] [facility] Last Admin: 09/01/17 03:40 Dose: 60 mls/hr Levothyroxine Sodium (Synthroid) 25 mcg PO BID [facility] Last Admin: 09/02/17 10:04 Dose: 25 mcg Multivitamins/Minerals (Therapeutic-M Tab) 1 tab PO DAILY [facility] Last Admin: 09/02/17 10:17 Dose: 1 tab Mupirocin (Bactroban Ointment) 0 gm NS BID [facility] Stop: 09/07/17 10:01 Last Admin: 09/02/17 10:02 Dose: 1 applic [id number]-[id number] Ethyl Esters (Lovaza) 1 gm PO BID [facility] Last Admin: 09/02/17 10:03 Dose: 1 gm Pantoprazole Sodium (Protonix Inj) 40 mg IVP Q12 [facility] Last Admin: 09/02/17 10:17 Dose: 40 mg Polyethylene Glycol (Miralax) 17 gm PO QID [facility] Last Admin: 09/02/17 10:03 Dose: 17 gm Zolpidem Tartrate (Ambien) 5 mg PO HS PRN; Protocol PRN Reason: Insomnia Last Admin: 09/01/17 23:44 Dose: 5 mg Physical Exam - Constitutional Appears: Chronically Ill - Head Exam Head Exam: NORMAL INSPECTION - ENT Exam ENT Exam: Mucous Membranes Moist - Neck Exam Neck exam: Negative for: Meningismus - Respiratory Exam Respiratory Exam: Decreased Breath Sounds - Cardiovascular Exam Cardiovascular Exam: +S1, +S2 - GI/Abdominal Exam GI & Abdominal Exam: Soft. absent: Tenderness Results - Vital Signs Recent Vital Signs: Last Vital Signs Temp 97.9 F 09/02/17 07:38 Pulse 77 09/02/17 07:38 Resp 20 09/02/17 07:38 BP 123/65 09/02/17 10:04 Pulse Ox 98 09/02/17 07:38 - Labs Result Diagrams: 09/02/17 11:30 09/02/17 07:20 Labs: Laboratory Results - last 24 hr 09/01/17 09/02/17 09/02/17 13:15 07:20 07:20 WBC 7.7 D RBC 2.63 L Hgb 8.1 L Hct 22.7 L MCV 86.3 MCH 30.8 MCHC 35.7 RDW 16.2 H Plt Count 224 MPV 8.3 Sodium 135 Potassium 3.6 Chloride 106 Carbon Dioxide 24 Anion Gap 9 L BUN 4 L Creatinine 0.7 L Est GFR ( Amer) > 60 Est GFR (Non-Af Amer) > 60 Random Glucose 95 Calcium 7.7 L Urine Color Yellow Urine Appearance Clear Urine pH 7.0 Ur Specific [place] 1.015 Urine Protein Negative Urine Glucose (UA) 250 H Urine Ketones Negative Urine Blood Negative Urine Nitrate Negative Urine Bilirubin Negative Urine Urobilinogen 0.2 Ur Leukocyte Esterase Negative Assessment & Plan - Assessment and Plan (Free Text) Plan: Assessment urinary retention R/O UTI with Staph aureus S/P torres catheter placement and removal S/P community-acquired pneumonia history of sepsis probably due to left inguinal abscess 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
[2017-09-02] MEDS ORDERED: Vancomycin 500mg in NS 500 MG/100 ML BAG IVPB SCH (22:00)
--- NOTE | 2017-09-03 00:49 | PN ---
DATE: 09/02/2017 PULMONARY PROGRESS NOTE REFERRING PHYSICIAN: Hannah Ramirez MD. SUBJECTIVE: He is lying in the bed, head at 45 degrees. Night was unremarkable. Feels much better. No chest pain. No nausea. Had a bowel movement. No leg pain or leg swelling. Short of breath with exertion. OBJECTIVE: GENERAL: In no acute distress. VITAL SIGNS: Temperature is 98, heart rate is 80, respiratory rate is 18, blood pressure 112/53, pulse ox of 99% on room air. HEENT: Moist mucous membranes. Small oral cavity. NECK: Supple. No JVD. LUNGS: Have a fair airflow with rhonchi. HEART: S1 and S2. ABDOMEN: Soft, nontender. No organomegaly. EXTREMITIES: No edema. NEUROLOGIC: Awake, alert, follows simple command. MEDICATIONS: Reviewed and noted. No new change in medications since yesterday. LABORATORY DATA: Reviewed shows hemoglobin 8.1, hematocrit 22.7, WBC 7.7, platelet is 224. Sodium 135, potassium 3.6, chloride 106, bicarbonate 24, BUN 4, creatinine 0.7, calcium is 7.7. Microbiology: Blood culture, urine culture is negative. Urine has Staph. IMPRESSION AND PLAN: Status post GI bleed; anemia, requiring transfusion; gastroparesis; coronary artery disease; hypertension; hyperlipidemia; chronic lung disease; may have sleep apnea syndrome; has constipation related mucosal ulcers in the intestine. Spoke to the patient in detail about stool softener, constipation and its risk. Keep head elevated at 45 degrees. Gastric prophylaxis. Sequential compression device to lower extremity. Follow up H and H. Thank you and we will follow with you. Dakotah Farrar MD
--- NOTE | 2017-09-03 03:34 | DS ---
Discharged to TCU on 09/02/2017. CHIEF COMPLAINT: Rectal bleeding. HISTORY OF PRESENT ILLNESS: Mr. Gabriela Page is a 81-year-old male with multiple medical problems, history of arthritis, pulmonary artery disease, status post cardiac stenting, hypertension, hypercholesterolemia, COPD, infected mesh, and enterocutaneous fistula status post colon resection, came to the Emergency Room Department of [facility] complaining of rectal bleeding. The patient reports bleeding is bright red and associated with burning sensation in the rectal area and that area is tender. No fever, no chills. We admitted the patient in the unit. CAT scan of abdomen and pelvis done. GI bleeding scan, nuclear done. Patient was constantly rectally bleeding, fresh rectal blood with clots. Hemoglobin dropped He was looking very sick. Rapid response happened on emergency basis. They did colonoscopy and endoscopy by Dr. Osorio. Patient was bleeding, got stool softener. It was badly impacted. Patient has esophageal ulcers and rectal bleeding ulcers. Patient improved. H and H was stable. Started on liquid diet. Continue pureed diet, now patient is transferred to TCU for continuity of care and physical therapy. PAST MEDICAL HISTORY: Hypertension, dizziness, history of cataract surgery, diabetes mellitus, hiatal hernia, history of GI bleeding status post abdominal surgery with mesh placement. FAMILY HISTORY: Father and mother, noncontributory. HABITS: No smoking. No drugs. No ethanol. ALLERGIES: THE PATIENT IS NOT ALLERGIC TO ANY MEDICATIONS. HOME MEDICATIONS: Reviewed by me. REVIEW OF SYSTEMS: The patient was seen and examined at the bedside today on the fifth floor. Looking comfortable. No nausea, vomiting, or diarrhea. No hematuria or hematochezia. No swelling of the legs. No chest pain, no palpitation. No fever, no chills. Discussion done with patient's daughter, power of vine pruner. All questions answered. PHYSICAL EXAMINATION: VITAL SIGNS: Temperature 97.8, pulse 80, blood pressure 112/53, respiratory rate 18. HEENT: Head normocephalic and atraumatic. Eyes, PERRLA. Extraocular movements are intact. Conjunctivae clear. Nose patent. Mucous membranes moist. NECK: Supple. No carotid bruit, JVD, or thyromegaly. CHEST: Bilaterally symmetrical. HEART: S1 and S2 positive. LUNGS: Clear to auscultation. ABDOMEN: Soft. Bowel sounds present. No organomegaly. EXTREMITIES: No edema. No cyanosis. NEUROLOGIC: The patient is awake, alert, moving all four extremities. No focal deficits. LABORATORY DATA: White blood cells 7.7, hemoglobin of 8.1, repeat is 8.2; hematocrit 22.7; platelets 224. [id number], potassium 3.6, BUN 4, creatinine 0.7, glucose 95, calcium 7.7. ASSESSMENT AND PLAN: Mr. 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 Colonoscopy, endoscopy done by Dr. Osorio. Patient has urinary retention, rule out urinary tract infection with Staphylococcus aureus, status post Douglas catheter placement and removal. Dr. Woods started vancomycin depending on the sensitivity. Urine culture sent. Sent patient to Transitional Care Unit for deconditioning and for continuity of intravenous antibiotics. We will follow up. Hannah Ramirez MD
[2017-09-05] MEDS ORDERED: Ergocalciferol 50,000 Intl Units Cap PO SCH (10:00)
== END 2017-09-02 21:21 | DRG 393 ==
LOC: ED 08:21 → ERH 11:56 → 3RSO 15:43 → CCU 08-29 16:31 → 5RSO 08-31 12:40
PROVIDERS: ADMIT Internal Medicine; ATTEND Internal Medicine
PROC: 0DJD8ZZ Inspection of Lower Intestinal Tract, Via Natural or Artificial Opening Endoscopic (ICD-10-PCS; principal; 2017-08-29 16:15)
PROC: 0DJ08ZZ Inspection of Upper Intestinal Tract, Via Natural or Artificial Opening Endoscopic (ICD-10-PCS; 2017-08-29 16:15)
DX: K62.6 Ulcer of anus and rectum (principal); R57.8 Other shock; E11.43 Type 2 diabetes mellitus with diabetic autonomic (poly)neuropathy; K31.84 Gastroparesis; T18.2XXA Foreign body in stomach, initial encounter; E11.65 Type 2 diabetes mellitus with hyperglycemia; D62 Acute posthemorrhagic anemia; K22.10 Ulcer of esophagus without bleeding; K56.49 Other impaction of intestine; Z68.1 Body mass index [BMI] 19.9 or less, adult; N32.0 Bladder-neck obstruction; D50.0 Iron deficiency anemia secondary to blood loss (chronic); E03.9 Hypothyroidism, unspecified; E78.00 Pure hypercholesterolemia, unspecified; E78.5 Hyperlipidemia, unspecified; G47.00 Insomnia, unspecified; G47.30 Sleep apnea, unspecified; G89.29 Other chronic pain; I10 Essential (primary) hypertension; I25.10 Atherosclerotic heart disease of native coronary artery without angina pectoris; J44.9 Chronic obstructive pulmonary disease, unspecified; K22.70 Barrett's esophagus without dysplasia; K26.9 Duodenal ulcer, unspecified as acute or chronic, without hemorrhage or perforation; K57.30 Diverticulosis of large intestine without perforation or abscess without bleeding; K56.41 Fecal impaction; K64.4 Residual hemorrhoidal skin tags; M19.90 Unspecified osteoarthritis, unspecified site; Z22.322 Carrier or suspected carrier of Methicillin resistant Staphylococcus aureus; Z87.11 Personal history of peptic ulcer disease; Z87.19 Personal history of other diseases of the digestive system; Z87.891 Personal history of nicotine dependence; Z90.49 Acquired absence of other specified parts of digestive tract; Z95.5 Presence of coronary angioplasty implant and graft; K20.9 Esophagitis, unspecified; K63.89 Other specified diseases of intestine

== ENCOUNTER 2017-09-02 21:21 | Inpatient (IN) | payer OTHER, MEDICAID ==
[2017-09-02 22:27] VITALS: BMI 14.8
[2017-09-02] MEDS ORDERED: Pneumococcal 23-Valent Vaccine IM ONE (22:27)
[2017-09-02] MEDS ORDERED: Influenza Vaccine 60 mcg/0.5 mL SYR (4YR UP) IM ONE (22:27)
[2017-09-02] MEDS ORDERED: Albuterol-Ipratrop 3 mg / 0.5 (3 ml) UD IH PRN (22:32)
[2017-09-02 22:50] LABS: PH,URINE 6.5 (4.7-8.0); URINE BILIRUBIN NEGATIVE (NEGATIVE); URINE BLOOD NEGATIVE (NEGATIVE); URINE GLUCOSE (UA) NEGATIVE (NEGATIVE); URINE LEUKOCYTE ESTERASE MODERATE Leu/uL (NEGATIVE); URINE PROTEIN NEGATIVE mg/dL (<30 mg/dL); URINE UROBILINOGEN 0.2 E.U./dL (<1 E.U./dL)
[2017-09-02 22:53] LABS: URINE APPEARANCE CLEAR (CLEAR); URINE COLOR YELLOW (YELLOW)
[2017-09-02 23:04] LABS: URINE RBC 0 - 2 /hpf (0-2); URINE WBC 15 - 20 /hpf (0-6)
[2017-09-02 23:05] LABS: URINE AMORPHOUS SEDIMENT FEW; URINE BACTERIA MOD (NEG)
[2017-09-02] MEDS: Sodium Chloride 0.9% 1,000 ML IV SCH (23:17)
[2017-09-03] MEDS: Pantoprazole 40 mg EC Tab PO SCH ×2 (05:29→16:47)
[2017-09-03] MEDS ORDERED: Vancomycin 500mg in NS 500 MG/100 ML BAG IVPB SCH ×2 (06:00→10:00)
[2017-09-03] MEDS: Multivitamin With Minerals Tab PO SCH (08:20)
[2017-09-03] MEDS ORDERED: Vancomycin 1gm in NS 250ml 1 GM/250 ML BAG IVPB SCH ×2 (09:30→18:00)
[2017-09-03] MEDS: Hydrocortisone 2.5% Rectal Cream(30 gm) PR SCH ×3 (09:55→17:06)
[2017-09-03] MEDS: POLYETHYLENE GLYCOL 3350 17 GM/Dose PACKET PO SCH ×4 (09:56→21:16)
[2017-09-03] MEDS: Omega-3-Acid Ethyl Esters 1 GM Cap PO SCH ×2 (09:56→17:05)
[2017-09-03] MEDS: Levothyroxine 25 MCG TAB PO SCH ×2 (09:57→17:05)
--- NOTE | 2017-09-03 12:47 | CP.PCM.PN ---
<Alonso Pack - Last Filed: 09/03/17 12:44> Subjective - Date & Time of Evaluation Date of Evaluation: 09/03/17 Time of Evaluation: 12:44 - Subjective Subjective: GI Progress Note for Dr. Osorio This 81M was seen and examined this AM at bedside. No acute events reported overnight. PT tolerating diet, no longer having any bloody bowel movements no complaints at this time. Objective - Vital Signs/Intake and Output Vital Signs (last 24 hours): Temp Pulse Resp BP Pulse Ox 97.9 F 70 20 111/70 09/02/17 22:19 09/02/17 22:19 09/02/17 22:19 09/03/17 09:57 - Medications Medications: Current Medications Albuterol/Ipratropium (Duoneb 3 Mg/0.5 Mg (3 Ml) Ud) 3 ml IH [id number] PRN; Protocol PRN Reason: Shortness of Breath Amlodipine Besylate (Norvasc) 10 mg PO DAILY ZACK PRN Reason: Protocol Last Admin: 09/03/17 09:57 Dose: 10 mg Atorvastatin Calcium (Lipitor) 20 mg PO HS ZACK PRN Reason: Protocol Bisacodyl (Dulcolax) 5 mg RC BID ZACK PRN Reason: Protocol Last Admin: 09/03/17 09:56 Dose: 5 mg Cyproheptadine HCl (Periactin) 4 mg PO TID ZACK PRN Reason: Protocol Last Admin: 09/03/17 09:56 Dose: 4 mg Doxazosin Mesylate (Cardura) 4 mg PO DAILY ZACK PRN Reason: Protocol Last Admin: 09/03/17 09:55 Dose: 4 mg Ergocalciferol (Drisdol 50,000 Intl Units Cap) 1 cap PO Fr@1000 ZACK PRN Reason: Protocol Hydrocortisone (Anusol-Hc) 0 gm ID TID ZACK PRN Reason: Protocol Last Admin: 09/03/17 09:55 Dose: 1 applic Sodium Chloride (Sodium Chloride 0.9%) 1,000 mls @ 60 mls/hr IV .[id number] ZACK Last Admin: 09/02/17 23:17 Dose: 60 mls/hr Vancomycin HCl (Vancomycin 1gm) 1 gm in 250 mls @ 167 mls/hr IVPB 0600,1800 ZACK PRN Reason: Protocol Levothyroxine Sodium (Synthroid) 25 mcg PO BID ZACK PRN Reason: Protocol Last Admin: 09/03/17 09:57 Dose: 25 mcg Multivitamins/Minerals (Therapeutic-M Tab) 1 tab PO 0800 ZACK PRN Reason: Protocol Last Admin: 09/03/17 08:20 Dose: 1 tab Mupirocin (Bactroban Ointment) 0 gm NS BID ZACK PRN Reason: Protocol Stop: 09/07/17 18:01 Last Admin: 09/03/17 09:55 Dose: 1 applic [id number]-3-[id number] Ethyl Esters (Lovaza) 1 gm PO BID ZACK Last Admin: 09/03/17 09:56 Dose: 1 gm Pantoprazole Sodium (Protonix Ec Tab) 40 mg PO 0600,1600 ZACK PRN Reason: Protocol Last Admin: 09/03/17 05:29 Dose: 40 mg Polyethylene Glycol (Miralax) 17 gm PO QID ZACK PRN Reason: Protocol Last Admin: 09/03/17 09:56 Dose: 17 gm Zolpidem Tartrate (Ambien) 5 mg PO HS PRN; Protocol PRN Reason: Insomnia - Constitutional Appears: Non-toxic, No Acute Distress - Head Exam Head Exam: ATRAUMATIC, NORMOCEPHALIC - Eye Exam Eye Exam: EOMI - ENT Exam ENT Exam: Mucous Membranes Moist - Respiratory Exam Respiratory Exam: NORMAL BREATHING PATTERN - Cardiovascular Exam Cardiovascular Exam: +S1, +S2 - GI/Abdominal Exam GI & Abdominal Exam: Soft. absent: Distended, Firm, Guarding, Rigid, Tenderness - Neurological Exam Neurological Exam: Alert, Awake - Psychiatric Exam Psychiatric exam: Normal Affect, Normal Mood - Skin Skin Exam: Dry, Intact Assessment and Plan - Assessment and Plan (Free Text) Assessment: 81M with stercoral ulcer Miralax BID Pureed diet Monitor BMs for blood D/W Dr. Devon Pack PGY2 <Hernan Osorio V - Last Filed: 09/03/17 20:32> Objective - Vital Signs/Intake and Output Vital Signs (last 24 hours): Temp Pulse Resp BP Pulse Ox 98.6 F 90 20 106/53 L 97 09/03/17 16:00 09/03/17 16:00 09/03/17 16:00 09/03/17 16:00 09/03/17 16:00 - Medications Medications: Current Medications Albuterol/Ipratropium (Duoneb 3 Mg/0.5 Mg (3 Ml) Ud) 3 ml IH [id number] PRN; Protocol PRN Reason: Shortness of Breath Amlodipine Besylate (Norvasc) 10 mg PO DAILY ZACK PRN Reason: Protocol Last Admin: 09/03/17 09:57 Dose: 10 mg Atorvastatin Calcium (Lipitor) 20 mg PO HS ZACK PRN Reason: Protocol Bisacodyl (Dulcolax) 5 mg RC BID ZACK PRN Reason: Protocol Last Admin: 09/03/17 17:05 Dose: 5 mg Cyproheptadine HCl (Periactin) 4 mg PO TID ZACK PRN Reason: Protocol Last Admin: 09/03/17 17:05 Dose: 4 mg Doxazosin Mesylate (Cardura) 4 mg PO DAILY ZACK PRN Reason: Protocol Last Admin: 09/03/17 09:55 Dose: 4 mg Ergocalciferol (Drisdol 50,000 Intl Units Cap) 1 cap PO Fr@1000 ZACK PRN Reason: Protocol Hydrocortisone (Anusol-Hc) 0 gm ID TID ZACK PRN Reason: Protocol Last Admin: 09/03/17 17:06 Dose: 1 applic Sodium Chloride (Sodium Chloride 0.9%) 1,000 mls @ 60 mls/hr IV .[id number] ZACK Last Admin: 09/03/17 14:58 Dose: 60 mls/hr Cefazolin Sodium (Ancef 1gm In Ns) 1 gm in 100 mls @ 100 mls/hr IVPB 0600,1400, 2200 ZACK PRN Reason: Protocol Stop: 09/08/17 22:01 Levothyroxine Sodium (Synthroid) 25 mcg PO 0600,1600 ZACK PRN Reason: Protocol Multivitamins/Minerals (Therapeutic-M Tab) 1 tab PO 0800 ZACK PRN Reason: Protocol Last Admin: 09/03/17 08:20 Dose: 1 tab Mupirocin (Bactroban Ointment) 0 gm NS BID ZACK PRN Reason: Protocol Stop: 09/07/17 18:01 Last Admin: 09/03/17 17:06 Dose: 1 applic [id number]-[id number] Ethyl Esters (Lovaza) 1 gm PO BID ZACK Last Admin: 03/21/18 17:05 Dose: 1 gm Pantoprazole Sodium (Protonix Ec Tab) 40 mg PO 0600,1600 ZACK PRN Reason: Protocol Last Admin: 09/03/17 16:47 Dose: 40 mg Polyethylene Glycol (Miralax) 17 gm PO QID ZAKC PRN Reason: Protocol Last Admin: 09/03/17 17:06 Dose: 17 gm Zolpidem Tartrate (Ambien) 5 mg PO HS PRN; Protocol PRN Reason: Insomnia Attending/Attestation - Attestation I have personally seen and examined this patient.: Yes I have fully participated in the care of the patient.: Yes I have reviewed all pertinent clinical information, including history, physical exam and plan: Yes Notes (Text): This is an addendum to GI progress report dictated by the Water Quality Assistant.The patient was seen and examined earlier. Medical records, lab studies, imagings were reviewed. Last 24 hours events reviewed. Agreed with the above treatment plan as outlined in Water Quality Assistant 's notes the with the addition of the following Patient is tolerating pure diet On MiraLAX twice daily no further episodes of bleeding. patient has esophageal ulcerations Gastroparesis Stomach: Ulceration secondary to severe fecal impaction Continue PPI Follow-up hemoglobin and hematocrit Titrated dose of MiraLAX down to keep the bowel movements 1-2 per day Thank you very much for allowing us to participate in the care of the patient 09/03/17 20:31
[2017-09-03] MEDS: Sodium Chloride 0.9% 1,000 ML IV SCH (14:58)
--- NOTE | 2017-09-03 16:59 | CP.PCM.CON ---
History of Present Illness - History of Present Illness History of Present Illness: 81 year old male, with PMH of CAD, HTN, dyslipidemia, COPD, chronic back pain, arthritis, history of diverticulosis, S/P community-acquired pneumonia, history of sepsis probably due to left inguinal abscess with colocutaneous fistula ( from descending colon) associated with an infected inguinal mesh, S/P I and D, S /P sigmoid resection and removal of foreign body was initially admitted in [facility] [place] for rectal bleeding. He also developed urinary retention and Torres was placed. Urine cx showed Staph aureus and patient is currently on IV antibiotics for this. He is now transferred to [facility] for physical therapy and continued medical care. Infectious Diseases consult is requested to continue his antibiotics. He is currently doing better, now able to urinate, no fever or chills, no nausea or vomiting, no chest pain, no SOB, no cough or colds, no abdominal pain, no diarrhea. Review of Systems - Review of Systems All systems: reviewed and no additional remarkable complaints except (as per HPI ) Past Patient History - Infectious Disease Hx of Infectious Diseases: None - Tetanus Immunizations Tetanus Immunization: Unknown - Past Social History Smoking Status: Former Smoker - CARDIAC Hx Hypertension: Yes - PULMONARY Hx Respiratory Disorders: Yes Hx Chronic Obstructive Pulmonary Disease (COPD): Yes - NEUROLOGICAL Hx Dizziness: Yes Hx Seizures: (denies) - HEENT Hx Cataracts: Yes (b/l sx) - RENAL Hx Kidney Stones: No - ENDOCRINE/METABOLIC Hx Diabetes Mellitus Type 2: Yes Hx Hypothyroidism: Yes - HEMATOLOGICAL/ONCOLOGICAL Hx Blood Transfusions: Yes Hx Blood Transfusion Reaction: No - INTEGUMENTARY Other/Comment: ble skin discolorations, healed abd surgical scars, dry scab to left knee and lump to left scalp from recent fall - MUSCULOSKELETAL/RHEUMATOLOGICAL Hx Falls: Yes (past) - GASTROINTESTINAL Hx Gastrointestinal Disorders: Yes (rectal bleeding) - GENITOURINARY/GYNECOLOGICAL Hx Genitourinary Disorders: No Hx Reproductive Disorders: No - PSYCHIATRIC Hx Psychophysiologic Disorder: No Hx Substance Use: No - SURGICAL HISTORY Hx Surgeries: Yes - ANESTHESIA Hx Anesthesia Reactions: No Hx Malignant Hyperthermia: No Meds Allergies/Adverse Reactions: Allergies Allergy/AdvReac Type Severity Reaction Status Date / Time No Known Allergies Allergy Verified 08/04/17 21:40 - Medications Medications: Current Medications Albuterol/Ipratropium (Duoneb 3 Mg/0.5 Mg (3 Ml) Ud) 3 ml IH [id number] PRN; Protocol PRN Reason: Shortness of Breath Amlodipine Besylate (Norvasc) 10 mg PO DAILY ZACK PRN Reason: Protocol Atorvastatin Calcium (Lipitor) 20 mg PO HS ZACK PRN Reason: Protocol Bisacodyl (Dulcolax) 5 mg RC BID ZACK PRN Reason: Protocol Cyproheptadine HCl (Periactin) 4 mg PO TID ZACK PRN Reason: Protocol Doxazosin Mesylate (Cardura) 4 mg PO DAILY ZACK PRN Reason: Protocol Ergocalciferol (Drisdol 50,000 Intl Units Cap) 1 cap PO Fr@1000 ZACK PRN Reason: Protocol Hydrocortisone (Anusol-Hc) 0 gm IN TID ZACK PRN Reason: Protocol Sodium Chloride (Sodium Chloride 0.9%) 1,000 mls @ 60 mls/hr IV .[id number] [facility] Last Admin: 09/02/17 23:17 Dose: 60 mls/hr Vancomycin HCl (Vancomycin 1gm) 1 gm in 250 mls @ 167 mls/hr IVPB Q12H ZACK PRN Reason: Protocol Levothyroxine Sodium (Synthroid) 25 mcg PO BID ZACK PRN Reason: Protocol Multivitamins/Minerals (Therapeutic-M Tab) 1 tab PO 0800 ZACK PRN Reason: Protocol Last Admin: 09/03/17 08:20 Dose: 1 tab Mupirocin (Bactroban Ointment) 0 gm NS BID ZACK PRN Reason: Protocol Stop: 09/07/17 18:01 Oyolu-6-Uudo Ethyl Esters (Lovaza) 1 gm PO BID [facility] Pantoprazole Sodium (Protonix Ec Tab) 40 mg PO 0600,1600 [facility] PRN Reason: Protocol Last Admin: 09/03/17 05:29 Dose: 40 mg Polyethylene Glycol (Miralax) 17 gm PO QID ZACK PRN Reason: Protocol Zolpidem Tartrate (Ambien) 5 mg PO HS PRN; Protocol PRN Reason: Insomnia Physical Exam - Constitutional Appears: Chronically Ill - Head Exam Head Exam: NORMAL INSPECTION - ENT Exam ENT Exam: Mucous Membranes Moist - Neck Exam Neck exam: Negative for: Meningismus - Respiratory Exam Respiratory Exam: Decreased Breath Sounds - Cardiovascular Exam Cardiovascular Exam: +S1, +S2 - GI/Abdominal Exam GI & Abdominal Exam: Soft. absent: Tenderness Results - Vital Signs Recent Vital Signs: Last Vital Signs Temp 97.9 F 09/02/17 22:19 Pulse 70 09/02/17 22:19 Resp 20 09/02/17 22:19 BP 111/55 L 09/02/17 22:19 Pulse Ox - Labs Labs: Laboratory Results - last 24 hr 09/02/17 22:15 Urine Color Yellow Urine Appearance Clear Urine pH 6.5 Ur Specific Lackey 1.010 Urine Protein Negative Urine Glucose (UA) Negative Urine Ketones Negative Urine Blood Negative Urine Nitrate Positive H Urine Bilirubin Negative Urine Urobilinogen 0.2 Ur Leukocyte Esterase Moderate H Urine RBC 0 - 2 Urine WBC 15 - 20 Ur Epithelial Cells None Amorphous Sediment Few Urine Bacteria Mod Assessment & Plan - Assessment and Plan (Free Text) Plan: Assessment urinary retention R/O UTI with methicillin-sensitive Staph aureus S/P torres catheter placement and removal S/P community-acquired pneumonia history of sepsis probably due to left inguinal abscess with colocutaneous fistula (from descending colon) associated with an infected inguinal mesh, S/P I and D, S/P sigmoid resection and removal of foreign body CAD HTN dyslipidemia COPD chronic back pain arthritis history of diverticulosis Plan change Vancomycin to Cefazolin; follow up repeat urine cx will continue to monitor clinically
[2017-09-03] MEDS: ceFAZolin 1 gm in NS 1 GM/100 ML BAG IVPB SCH (21:11)
[2017-09-03] MEDS ORDERED: ceFAZolin 1 gm in NS 1 GM/100 ML BAG IVPB SCH (22:00)
--- NOTE | 2017-09-04 01:25 | HP ---
CHIEF COMPLAINT: GI bleeding and deconditioned. HISTORY OF PRESENT ILLNESS: Mr. Gabriela Page is 81 years old, my private patient with multiple medical problems, was admitted at [facility] with acute rectal bleeding, hemoglobin dropped, couple of packed RBCs given. GI consult called. Colonoscopy and endoscopy done, shows the patient has esophageal ulcers and rectal ulcers bleeding. The patient was infected. Then by Dr. Osorio, got stool softener, had passed stool for couple of days. Now his abdomen is soft, but he has rectal pain. We gave local application. His rectal pain is getting better, deconditioned. Needs some antibiotics for UTI. We transferred the patient to TCU for continuing of care, IV antibiotics, and physical therapy. PAST MEDICAL HISTORY: Hypertension, dizziness, history of cataract surgery, diabetes mellitus, hiatal hernia, history of GI bleeding status post abdominal surgery with mesh placement. FAMILY HISTORY: Father and mother noncontributory. HABIT: No smoking, no drug, no ethanol. ALLERGIES: THE PATIENT IS NOT ALLERGIC TO ANY MEDICATIONS. HOME MEDICATIONS: Reviewed by me. REVIEW OF SYSTEMS: The patient is seen and examined early in the morning, looking comfortable. No nausea, vomiting or diarrhea. Rectal pain is better. No fever, no chills, no headache, no dizziness. No overnight event happened. Tolerating pureed diet. No longer having any bloody movements. PHYSICAL EXAMINATION: VITAL SIGNS: Temperature 97.9, pulse 70, respiratory rate 20, blood pressure 111/70. HEENT: Head normocephalic, atraumatic. Eyes, PERRLA. Extraocular movements are intact. Conjunctivae clear. Nose, patent. NECK: Supple. No carotid bruits. No JVD or thyromegaly. CHEST: Bilaterally symmetrical. HEART: S1 and S2 positive. LUNGS: Clear to auscultation. ABDOMEN: Soft. Bowel sounds are present. No organomegaly. EXTREMITIES: No edema. No cyanosis. NEUROLOGIC: The patient is awake and alert. Moving all 4 extremities. No focal deficits. MEDICATIONS: DuoNeb, Norvasc, Lipitor, Dulcolax, cyproheptadine, Cardura, Anusol, vancomycin, Synthroid, Bactroban ointment, Protonix, Ambien. LABORATORY DATA: We have urinalysis, nitrite positive, leukocyte esterase positive. We do not have other recent labs, I reviewed old labs. On 09/02/2017, the patient had white blood cells 7.7, hemoglobin 8.2, hematocrit 23.4, platelets 224. ASSESSMENT AND PLAN: Mr. Gabriela Page is a 81-year-old male with stercoral ulcer, came with lower gastrointestinal bleeding, MiraLax given, ordered pureed diet, monitoring bowel movement for blood. The patient has history of severe anemia, status post blood transfusion, history of arthritis, coronary artery disease with cardiac stenting, hypertension, hypercholesterolemia, chronic obstructive pulmonary disease, infected mesh, enterocutaneous fistula status post colon resection, now urinary tract infection, transferred to TCU for IV antibiotics, physical therapy, monitoring hemoglobin and hematocrit. Discussion done with Dr. Farrar. Gastrointestinal and deep venous thrombosis prophylaxis. Repeat labs. We will follow up. Hannah Ramirez MD
[2017-09-04] MEDS: Pantoprazole 40 mg EC Tab PO SCH ×2 (05:38→17:16)
[2017-09-04] MEDS: Levothyroxine 25 MCG TAB PO SCH ×2 (05:38→17:16)
[2017-09-04] MEDS: ceFAZolin 1 gm in NS 1 GM/100 ML BAG IVPB SCH ×3 (05:38→21:29)
[2017-09-04 07:00] LABS: HEMOGLOBIN 9.1 g/dL (14.0-18.0); MEAN CELL VOLUME 87.9 fl (80.0-105.0); MEAN CORPUSCULAR HEMOGLOBIN 29.8 pg (25.0-35.0); MEAN PLATELET VOLUME 8.2 fl (7.0-11.0); RBC 3.05 10^6/uL (3.5-6.1); WHITE BLOOD COUNT 8.8 10^3/ul (4.5-11.0)
[2017-09-04 07:47] LABS: BLOOD UREA NITROGEN 7 mg/dL (7-21); CALCIUM 8.3 mg/dL (8.4-10.5); GFR AFRICAN-AMERICAN > 60; GFR NON-AFRICAN AMERICAN > 60
--- NOTE | 2017-09-04 08:36 | CON ---
DATE: 09/03/2017 PULMONARY PROGRESS NOTE REFERRING PHYSICIAN: Hannah Ramirez MD. SUBJECTIVE: He is lying in the bed, head at 45 degrees. No cough, short of breath with exertion. No chest pain. No nausea. Mild abdominal discomfort. He had a bowel movement last night. No leg pain or leg swelling. HISTORY OF PRESENT ILLNESS: This is a 81-year-old gentleman, known to me from previous admission, has a history of chronic lung disease, coronary artery disease, history of coronary stent, hypertension, hyperlipidemia, history of laparotomy with hemicolectomy, recurrent constipation, bladder outlet obstruction, gastroparesis, gastritis, also has a sigmoid mucosal ulcers secondary to constipation, was admitted with GI bleed and severe constipation, seen by Dr. Osorio. Has endoscopy done. Presently, admitted to TCU for continued care. PAST MEDICAL HISTORY: As per history of present illness. FAMILY HISTORY: No significant cardiopulmonary disease reported. SOCIAL HISTORY: Nonsmoker, nondrinker. ALLERGIES: NONE KNOWN. MEDICATIONS: He is on Ambien 5 mg at bedtime p.r.n., Anusol three times a day, bacitracin ointment to affected area twice a day, Cardura 4 mg daily, vitamin D 50,000 units daily, Dulcolax 5 mg rectally twice a day, DuoNeb every 6 hours p.r.n., Lipitor 20 mg daily, Lovaza 1 g twice a day, MiraLax 17 g four times daily, Norvasc 10 mg daily, Periactin 4 mg three times a day, Protonix 40 mg twice a day, IV fluid normal saline 60 mL/hour, Synthroid 25 mcg twice a day, multivitamin daily, vancomycin 1 g IV every 12 hours. OBJECTIVE: GENERAL: No acute distress. VITAL SIGNS: Temperature is 98, heart rate 70, respiratory rate is 20, blood pressure 111/70. HEENT: Moist mucous membranes. Small oral cavity. Crowded airway. NECK: Supple. No JVD. LUNGS: Have a fair airflow. No rhonchi. HEART: S1 and S2. ABDOMEN: Soft. Mild suprapubic tenderness. EXTREMITIES: There is no edema. NEUROLOGICAL: Awake, alert, follows simple command. LABORATORY DATA: Shows hemoglobin 8.2, hematocrit 23.4. Urine culture had a Staph. IMPRESSION AND PLAN: Recurrent bowel obstruction, has an esophageal ulcer, gastroparesis, chronic constipation, rectal ulcers secondary to severe constipation, coronary artery disease, hypertension, hyperlipidemia, chronic lung disease, anemia, may have a component of sleep apnea syndrome, gastroesophageal reflux disease. Continue bronchodilator. Keep head at 45 degrees. Also has a bladder outlet obstruction. We will get bladder scanning twice a day. Being followed by Gastroenterology. May continue to need stool softener and stimulant. Out of bed to chair, physical therapy. Thank you and we will follow with you. Dakotah Farrar MD
[2017-09-04] MEDS: Sodium Chloride 0.9% 1,000 ML IV SCH (08:39)
[2017-09-04] MEDS: Multivitamin With Minerals Tab PO SCH (08:40)
[2017-09-04] MEDS: Omega-3-Acid Ethyl Esters 1 GM Cap PO SCH ×2 (10:09→17:18)
[2017-09-04] MEDS: Hydrocortisone 2.5% Rectal Cream(30 gm) PR SCH ×3 (10:09→17:17)
[2017-09-04] MEDS: POLYETHYLENE GLYCOL 3350 17 GM/Dose PACKET PO SCH ×4 (10:10→21:30)
--- NOTE | 2017-09-04 14:48 | CP.PCM.PN ---
Subjective - Date & Time of Evaluation Date of Evaluation: 09/04/17 Time of Evaluation: 12:00 - Subjective Subjective: Comfortable, no fevers, not in distress. Objective - Vital Signs/Intake and Output Vital Signs (last 24 hours): Temp Pulse Resp BP Pulse Ox 98.6 F 90 20 106/53 L 97 09/03/17 16:00 09/03/17 16:00 09/03/17 16:00 09/03/17 16:00 09/03/17 16:00 - Medications Medications: Current Medications Albuterol/Ipratropium (Duoneb 3 Mg/0.5 Mg (3 Ml) Ud) 3 ml IH [id number] PRN; Protocol PRN Reason: Shortness of Breath Amlodipine Besylate (Norvasc) 10 mg PO DAILY ZACK PRN Reason: Protocol Last Admin: 09/03/17 09:57 Dose: 10 mg Atorvastatin Calcium (Lipitor) 20 mg PO HS ZACK PRN Reason: Protocol Last Admin: 09/03/17 21:12 Dose: 20 mg Bisacodyl (Dulcolax) 5 mg RC BID ZACK PRN Reason: Protocol Last Admin: 09/03/17 17:05 Dose: 5 mg Cyproheptadine HCl (Periactin) 4 mg PO TID ZACK PRN Reason: Protocol Last Admin: 09/03/17 17:05 Dose: 4 mg Doxazosin Mesylate (Cardura) 4 mg PO DAILY ZACK PRN Reason: Protocol Last Admin: 09/03/17 09:55 Dose: 4 mg Ergocalciferol (Drisdol 50,000 Intl Units Cap) 1 cap PO Fr@1000 [facility]ACK PRN Reason: Protocol Hydrocortisone (Anusol-Hc) 0 gm [place] TID ZACK PRN Reason: Protocol Last Admin: 09/03/17 17:06 Dose: 1 applic Sodium Chloride (Sodium Chloride 0.9%) 1,000 mls @ 60 mls/hr IV .[id number] [facility] Last Admin: 09/04/17 08:39 Dose: 60 mls/hr Cefazolin Sodium (Ancef 1gm In Ns) 1 gm in 100 mls @ 100 mls/hr IVPB 0600,1400, 2200 ZACK PRN Reason: Protocol Stop: 09/08/17 22:01 Last Admin: 09/04/17 05:38 Dose: 100 mls/hr Levothyroxine Sodium (Synthroid) 25 mcg PO 0600,1600 [facility]ACK PRN Reason: Protocol Last Admin: 09/04/17 05:38 Dose: 25 mcg Multivitamins/Minerals (Therapeutic-M Tab) 1 tab PO 0800 ZACK PRN Reason: Protocol Last Admin: 09/04/17 08:40 Dose: 1 tab Mupirocin (Bactroban Ointment) 0 gm NS BID ZACK PRN Reason: Protocol Stop: 09/07/17 18:01 Last Admin: 09/03/17 17:06 Dose: 1 applic [id number]-6-[id number] Ethyl Esters (Lovaza) 1 gm PO BID [facility] Last Admin: 09/03/17 17:05 Dose: 1 gm Pantoprazole Sodium (Protonix Ec Tab) 40 mg PO 0600,1600 [facility] PRN Reason: Protocol Last Admin: 09/04/17 05:38 Dose: 40 mg Polyethylene Glycol (Miralax) 17 gm PO QID ZACK PRN Reason: Protocol Last Admin: 09/03/17 21:16 Dose: Not Given Zolpidem Tartrate (Ambien) 5 mg PO HS PRN; Protocol PRN Reason: Insomnia - Labs Labs: 09/04/17 06:30 09/04/17 06:30 - Constitutional Appears: Chronically Ill - Head Exam Head Exam: NORMAL INSPECTION - ENT Exam ENT Exam: Mucous Membranes Moist - Neck Exam Neck Exam: absent: Meningismus - Respiratory Exam Respiratory Exam: Decreased Breath Sounds - Cardiovascular Exam Cardiovascular Exam: +S1, +S2 - GI/Abdominal Exam GI & Abdominal Exam: Soft. 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
--- NOTE | 2017-09-05 04:12 | PN ---
DATE: 09/04/2017 SUBJECTIVE: This patient was seen and evaluated earlier today. The patient did have a good bowel movement. He states that he is feeling much better after his bowel movement yesterday. No history of bleeding per rectum. No abdominal pain. PHYSICAL EXAMINATION: VITAL SIGNS: Temperature is 98.5, pulse 114, blood pressure is 130/69. HEENT: Atraumatic, anicteric. NECK: Supple. HEART: S1 and S2 heard. LUNGS: Bilateral air entry present. ABDOMEN: Soft. There is no tenderness.. EXTREMITIES: No cyanosis. No clubbing. NEUROLOGIC: Alert and oriented. Moves all the extremities. LABORATORY DATA: Hemoglobin 9.1, hematocrit 28.8, WBC is 8.8, platelets 314. BUN 7, creatinine 0.8. IMPRESSION: 1. Esophageal ulceration LA grade C. 2. Gastroparesis. 3. Stercoral ulceration due to fecal impaction. 4. Anemia status post transfusion. RECOMMENDATIONS: We would recommend, 1. Follow up of the hemoglobin and hematocrit. 2. Continue with high-dose PPI. 3. Patient is on MiraLax, continue. Thank you very much for allowing us to participate in the care of the patient. Hernan Osorio MD
[2017-09-05] MEDS: ceFAZolin 1 gm in NS 1 GM/100 ML BAG IVPB SCH ×3 (05:23→21:37)
[2017-09-05] MEDS: Pantoprazole 40 mg EC Tab PO SCH ×2 (05:23→17:08)
[2017-09-05] MEDS: Sodium Chloride 0.9% 1,000 ML IV SCH ×2 (05:23→08:50)
[2017-09-05] MEDS: Levothyroxine 25 MCG TAB PO SCH ×2 (05:24→17:08)
--- NOTE | 2017-09-05 07:13 | PN ---
DATE: SUBJECTIVE: The patient was seen and examined on the bedside, looking comfortable. No nausea, vomiting or diarrhea. No hematuria or hematochezia. No headache or dizziness. No chest pain. No palpitation. No fever, no chills. No dysuria. PHYSICAL EXAMINATION VITAL SIGNS: Temperature 98.4, pulse 114, blood pressure 130/59, respiratory rate 18. HEENT: Head normocephalic, atraumatic. Eyes: PERRLA. Extraocular muscles intact. Conjunctivae clear. Nose patent. Mucous membrane moist. NECK: Supple. No carotid bruit, JVD, or thyromegaly. CHEST: Bilaterally symmetrical. HEART: S1, S2 positive. LUNGS: Clear to auscultation. ABDOMEN: Soft. Bowel sounds present. No organomegaly. EXTREMITIES: No edema. No cyanosis. NEUROLOGIC: The patient is awake and alert. Moving all four extremities. No focal deficit. MEDICATIONS: Ambien, Ancef, Anusol, Bactroban, Cardura, vitamin D, Dulcolax, DuoNeb, Lipitor, Lovaza, MiraLax, cyproheptadine, Protonix, NS, Synthroid, vitamins. LABORATORY DATA: White blood cell 8.8, hemoglobin 9.1, hematocrit 26.8, platelets 314. Sodium 139, potassium 3.4. BUN 7, creatinine 0.8. ASSESSMENT AND PLAN: Mr. Gabriela Page is a 81-year-old male with anemia; hypokalemia, we replaced; hypocalcemia; urinary tract infection; seen by Dr. Maurice Duarte; Infectious Disease; rule out methicillin-resistant Staphylococcus aureus; status post Douglas catheter placement and removal; status post community-acquired pneumonia; history of sepsis probably due to left inguinal abscess with a colocutaneous fistula from descending colon associated with an infected inguinal mesh, status post incision and drainage, status post sigmoid resection and removal of the foreign body; coronary artery disease; hypertension; dyslipidemia; chronic obstructive pulmonary disease; chronic back pain; arthritis; history of diverticulosis; history of chronic constipation; continue cefazolin, day #3 of that to be completed day #7. I will follow up. I will repeat urine culture and sensitivity; continue present treatment. Out of bed. Physical therapy. We will follow up. Hannah Ramirez MD [facility] # [id number]
--- NOTE | 2017-09-05 08:11 | PN ---
DATE: 09/04/2017 PULMONARY PROGRESS NOTE REFERRING PHYSICIAN: Hannah Ramirez MD. SUBJECTIVE: He is lying in the bed, feels better. Decreased shortness of breath with exertion. Ambulated with the help of therapist today. No headache. No rhinitis. No nausea. No vomiting. No abdominal pain. He has two bowel movements today. No leg swelling. OBJECTIVE: GENERAL: In no acute distress. VITAL SIGNS: Temperature is 98, heart rate 84, respiratory rate 18, blood pressure 126/62, pulse ox 96% on room air. HEENT: Small oral cavity. Crowded airway. NECK: Supple. No JVD. LUNGS: Fair airflow. No rhonchi. HEART: S1 and S2. ABDOMEN: Positive bowel sounds. Soft, nontender. No organomegaly. EXTREMITIES: No edema. NEUROLOGICAL: Awake and alert. Follows simple command. MEDICATIONS: He is on Ambien 5 mg at bedtime p.r.n., Ancef 1 g IV every 8 hours, hydrocortisone rectally, Cardura 4 mg daily, Vitamin D 50,000 units subcutaneous weekly, Dulcolax 5 mg rectally twice a day, DuoNeb every 6 hours p.r.n., potassium 10 mEq daily, Lipitor 20 mg at bedtime, Lovaza 1 g twice a day, MiraLax 17 g twice a day, Norvasc 10 mg daily, Periactin 4 mg 3 times a day, Protonix 40 mg twice a day, IV fluid normal saline 60 mL/hour, Synthroid 25 mcg twice a day, multivitamin daily. LABORATORY DATA: Hemoglobin 9.1, hematocrit 26.8, WBC 8.8, platelets is 314. Sodium 139, potassium 3.4, chloride 107, bicarbonate 26, BUN 7, creatinine 0.8, calcium 8.3. IMPRESSION AND PLAN: Recurrent bowel obstruction, esophageal ulcer, gastroparesis, chronic constipation, rectal ulcer secondary to severe constipation, coronary artery disease, hypertension, hyperlipidemia, chronic lung disease, anemia, status post gastrointestinal bleed, may have a sleep apnea syndrome, gastroesophageal reflux disease, activities of daily living dysfunction. Pulmonary point of view, he does okay. Continue bronchodilators, keep head at 45 degree, continue gastrointestinal stimulant, stool softener, fall precaution, gastric prophylaxis, sequential compression devices to lower extremities, continue therapy. Thank you and we will follow with you. Dakotah Farrar MD [facility] # [id number]
[2017-09-05] MEDS: Multivitamin With Minerals Tab PO SCH (08:49)
[2017-09-05] MEDS ORDERED: Ergocalciferol 50,000 Intl Units Cap PO SCH (10:00)
[2017-09-05] MEDS: POLYETHYLENE GLYCOL 3350 17 GM/Dose PACKET PO SCH ×4 (10:30→21:44)
[2017-09-05] MEDS: Omega-3-Acid Ethyl Esters 1 GM Cap PO SCH ×2 (10:31→17:08)
[2017-09-05] MEDS: Hydrocortisone 2.5% Rectal Cream(30 gm) PR SCH ×3 (10:38→17:08)
--- NOTE | 2017-09-05 12:15 | CP.PCM.PN ---
Subjective - Date & Time of Evaluation Date of Evaluation: 09/05/17 Time of Evaluation: 11:45 - Subjective Subjective: Comfortable, not in distress, able to urinate, no fevers, no nausea. Objective - Vital Signs/Intake and Output Vital Signs (last 24 hours): Temp Pulse Resp BP Pulse Ox 98.5 F 114 H 18 130/69 98 09/04/17 17:55 09/04/17 17:55 09/04/17 17:55 09/04/17 17:55 09/04/17 17:55 - Medications Medications: Current Medications Albuterol/Ipratropium (Duoneb 3 Mg/0.5 Mg (3 Ml) Ud) 3 ml IH [id number] PRN; Protocol PRN Reason: Shortness of Breath Amlodipine Besylate (Norvasc) 10 mg PO DAILY ZACK PRN Reason: Protocol Last Admin: 09/04/17 10:10 Dose: 10 mg Atorvastatin Calcium (Lipitor) 20 mg PO HS ZACK PRN Reason: Protocol Last Admin: 09/04/17 21:29 Dose: 20 mg Bisacodyl (Dulcolax) 5 mg RC BID [facility]ACK PRN Reason: Protocol Last Admin: 09/04/17 17:18 Dose: 5 mg Cyproheptadine HCl (Periactin) 4 mg PO TID ZACK PRN Reason: Protocol Last Admin: 09/04/17 17:18 Dose: 4 mg Doxazosin Mesylate (Cardura) 4 mg PO DAILY ZACK PRN Reason: Protocol Last Admin: 09/04/17 10:09 Dose: 4 mg Ergocalciferol (Drisdol 50,000 Intl Units Cap) 1 cap PO Fr@1000 [facility]ACK PRN Reason: Protocol Hydrocortisone (Anusol-Hc) 0 gm ND TID ZACK PRN Reason: Protocol Last Admin: 09/04/17 17:17 Dose: 1 applic Sodium Chloride (Sodium Chloride 0.9%) 1,000 mls @ 60 mls/hr IV .[id number] [facility] Last Admin: 09/05/17 08:50 Dose: 60 mls/hr Cefazolin Sodium (Ancef 1gm In Ns) 1 gm in 100 mls @ 100 mls/hr IVPB 0600,1400, 2200 ZACK PRN Reason: Protocol Stop: 09/08/17 22:01 Last Admin: 09/05/17 05:23 Dose: 100 mls/hr Levothyroxine Sodium (Synthroid) 25 mcg PO 0600,1600 [facility]ACK PRN Reason: Protocol Last Admin: 09/05/17 05:24 Dose: 25 mcg Multivitamins/Minerals (Therapeutic-M Tab) 1 tab PO 0800 ZACK PRN Reason: Protocol Last Admin: 09/05/17 08:49 Dose: 1 tab Mupirocin (Bactroban Ointment) 0 gm NS BID ZACK PRN Reason: Protocol Stop: 09/07/17 18:01 Last Admin: 09/04/17 17:16 Dose: 1 applic [id number]-9-[id number] Ethyl Esters (Lovaza) 1 gm PO BID [facility] Last Admin: 09/04/17 17:18 Dose: 1 gm Pantoprazole Sodium (Protonix Ec Tab) 40 mg PO 0600,1600 [facility] PRN Reason: Protocol Last Admin: 09/05/17 05:23 Dose: 40 mg Polyethylene Glycol (Miralax) 17 gm PO QID [facility]ACK PRN Reason: Protocol Last Admin: 09/04/17 21:30 Dose: Not Given Potassium Chloride (Klor-Con 10) 10 meq PO DAILY [facility] Zolpidem Tartrate (Ambien) 5 mg PO HS PRN; Protocol PRN Reason: Insomnia - Labs Labs: 09/04/17 06:30 09/04/17 06:30 - Constitutional Appears: Non-toxic, Chronically Ill - Head Exam Head Exam: NORMAL INSPECTION - ENT Exam ENT Exam: Mucous Membranes Moist - Neck Exam Neck Exam: absent: Meningismus - Respiratory Exam Respiratory Exam: Decreased Breath Sounds - Cardiovascular Exam Cardiovascular Exam: +S1, +S2 - GI/Abdominal Exam GI & Abdominal Exam: Soft. 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
[2017-09-05] MEDS: Potassium Chloride 10 mEq ER Tab PO SCH (12:37)
--- NOTE | 2017-09-06 00:20 | PN ---
DATE: SUBJECTIVE: The patient was seen and examined on the bedside, looking comfortable. Not in distress. Able to urinate, able to do bowel movement even though bowel movement was a little bit hard. No fever. No chills. No nausea or vomiting. No dysuria. No dyspnea. OBJECTIVE: VITAL SIGNS: Temperature 98.5, pulse 114, respiratory rate 18, blood pressure 130/59, pulse oximetry 98. HEENT: Head normocephalic, atraumatic. Eyes: PERRLA. Extraocular muscles intact. Conjunctivae clear. Nose patent. Mucous membrane moist. NECK: Supple. No carotid bruit, JVD or thyromegaly. CHEST: Bilaterally symmetrical. HEART: S1 and S2 positive. LUNGS: Clear to auscultation. ABDOMEN: Soft. Bowel sounds present. No organomegaly. EXTREMITIES: No edema. No cyanosis. NEUROLOGIC: The patient is awake and alert. Moving all 4 extremities. No focal deficit. MEDICATIONS: DuoNeb, amlodipine, Lipitor, Dulcolax, cyproheptadine, Cardura, vitamin D, Anusol, sodium chloride, Ancef, Synthroid, multivitamin, Bactroban, [place] 3, omeprazole, MiraLax, Potassium. . LABORATORY DATA: White blood cells 8.8, hemoglobin 9.1, hematocrit 26.8, platelets 314. Sodium 139, potassium 3.4, BUN 7, creatinine 0.8, glucose 108. ASSESSMENT AND PLAN: Mr. Gabriela Page is a 81-year-old male with urinary retention, rule out urinary tract infection, with methicillin-sensitive Staphylococcus aureus, status post Douglas catheter placement and removed; community-acquired pneumonia; history of sepsis probably due to left inguinal abscess ,colocutaneous fistula from the descending colon associated with infected inguinal mesh, status post incision and drainage, status post sigmoid resection and removal of the foreign body; chronic obstructive pulmonary disease; hypertension; history of anemia, status post blood transfusion; dyslipidemia, chronic back pain, arthritis, history of diverticulosis, continue cefazolin day #4 to be completed 7 days, history of lower gastrointestinal bleeding, status post constipation, now constipation is relieved. Hemoglobin is trending up. Gastrointestinal and deep venous thrombosis prophylaxis. Repeat labs. We will follow up. Hannah Ramirez MD [facility] # [id number] ELLY
[2017-09-06] MEDS: ceFAZolin 1 gm in NS 1 GM/100 ML BAG IVPB SCH ×3 (05:20→21:43)
[2017-09-06] MEDS: Levothyroxine 25 MCG TAB PO SCH ×2 (05:20→17:40)
[2017-09-06] MEDS: Pantoprazole 40 mg EC Tab PO SCH ×2 (05:21→17:40)
[2017-09-06] MEDS: Multivitamin With Minerals Tab PO SCH (08:49)
[2017-09-06] MEDS: Sodium Chloride 0.9% 1,000 ML IV SCH (09:14)
[2017-09-06] MEDS: Hydrocortisone 2.5% Rectal Cream(30 gm) PR SCH ×3 (09:15→17:37)
[2017-09-06] MEDS: Potassium Chloride 10 mEq ER Tab PO SCH (09:16)
[2017-09-06] MEDS: POLYETHYLENE GLYCOL 3350 17 GM/Dose PACKET PO SCH ×4 (09:17→21:45)
[2017-09-06] MEDS: Omega-3-Acid Ethyl Esters 1 GM Cap PO SCH ×2 (09:17→17:38)
--- NOTE | 2017-09-06 13:07 | CP.PCM.PN ---
Subjective - Date & Time of Evaluation Date of Evaluation: 09/06/17 Time of Evaluation: 11:15 - Subjective Subjective: NAD, denies chest pain, no SOB Objective - Vital Signs/Intake and Output Vital Signs (last 24 hours): Temp Pulse Resp BP Pulse Ox 97.8 F 89 20 111/55 L 98 09/06/17 10:00 09/06/17 10:00 09/06/17 10:00 09/06/17 10:00 09/06/17 10:00 - Medications Medications: Current Medications Albuterol/Ipratropium (Duoneb 3 Mg/0.5 Mg (3 Ml) Ud) 3 ml IH [id number] PRN; Protocol PRN Reason: Shortness of Breath Amlodipine Besylate (Norvasc) 10 mg PO DAILY ZACK PRN Reason: Protocol Last Admin: 09/06/17 09:17 Dose: 10 mg Atorvastatin Calcium (Lipitor) 20 mg PO HS ZACK PRN Reason: Protocol Last Admin: 09/05/17 21:37 Dose: 20 mg Bisacodyl (Dulcolax) 10 mg RC DAILY [facility]ACK PRN Reason: Protocol Last Admin: 09/06/17 09:16 Dose: Not Given Cyproheptadine HCl (Periactin) 4 mg PO TID ZACK PRN Reason: Protocol Last Admin: 09/06/17 09:20 Dose: 4 mg Doxazosin Mesylate (Cardura) 4 mg PO DAILY ZACK PRN Reason: Protocol Last Admin: 09/06/17 09:16 Dose: 4 mg Ergocalciferol (Drisdol 50,000 Intl Units Cap) 1 cap PO Fr@1000 [facility]ACK PRN Reason: Protocol Last Admin: 09/05/17 10:32 Dose: 1 cap Hydrocortisone (Anusol-Hc) 0 gm [place] TID ZACK PRN Reason: Protocol Last Admin: 09/06/17 09:15 Dose: 1 applic Sodium Chloride (Sodium Chloride 0.9%) 1,000 mls @ 60 mls/hr IV .[id number] [facility] Last Admin: 09/06/17 09:14 Dose: 60 mls/hr Cefazolin Sodium (Ancef 1gm In Ns) 1 gm in 100 mls @ 100 mls/hr IVPB 0600,1400, 2200 ZACK PRN Reason: Protocol Stop: 09/08/17 22:01 Last Admin: 09/06/17 05:20 Dose: 100 mls/hr Levothyroxine Sodium (Synthroid) 25 mcg PO 0600,1600 [facility] PRN Reason: Protocol Last Admin: 09/06/17 05:20 Dose: 25 mcg Multivitamins/Minerals (Therapeutic-M Tab) 1 tab PO 0800 ZACK PRN Reason: Protocol Last Admin: 09/06/17 08:49 Dose: 1 tab Mupirocin (Bactroban Ointment) 0 gm NS BID [facility] PRN Reason: Protocol Stop: 09/07/17 18:01 Last Admin: 09/06/17 09:15 Dose: 1 applic Ppsfy-5-Pfvk Ethyl Esters (Lovaza) 1 gm PO BID [facility] Last Admin: 09/06/17 09:17 Dose: 1 gm Pantoprazole Sodium (Protonix Ec Tab) 40 mg PO 0600,1600 [facility] PRN Reason: Protocol Last Admin: 09/06/17 05:21 Dose: 40 mg Polyethylene Glycol (Miralax) 17 gm PO QID [facility]ACK PRN Reason: Protocol Last Admin: 09/06/17 09:17 Dose: Not Given Potassium Chloride (Klor-Con 10) 10 meq PO DAILY [facility] Last Admin: 09/06/17 09:16 Dose: 10 meq Zolpidem Tartrate (Ambien) 5 mg PO HS PRN; Protocol PRN Reason: Insomnia - Labs Labs: 09/04/17 06:30 09/04/17 06:30 - Respiratory Exam Respiratory Exam: NORMAL BREATHING PATTERN - Cardiovascular Exam Cardiovascular Exam: REGULAR RHYTHM - GI/Abdominal Exam GI & Abdominal Exam: Soft, Normal Bowel Sounds - Neurological Exam Neurological Exam: Alert, Awake - Skin Skin Exam: Dry, Warm Assessment and Plan (1) UTI (urinary tract infection) Status: Acute (2) Urinary retention Status: Resolved - Assessment and Plan (Free Text) Plan: continue PT/SW for discharge planning
--- NOTE | 2017-09-06 16:01 | PN ---
DATE: 09/06/2017 PULMONARY PROGRESS NOTE REFERRING PHYSICIAN: Hannah Ramirez MD. SUBJECTIVE: The patient is lying in the bed, head at 45 degrees. Night was unremarkable. Doing well in therapy. Had a bowel movement this morning. Short of breath with exertion. No cough, no nausea, no vomiting. No leg pain, no leg swelling. PHYSICAL EXAMINATION: GENERAL: In no acute distress. VITAL SIGNS: Temperature is 98, heart rate is 81, respiratory rate is 18, blood pressure 112/57, pulse ox 95% on room air. HEENT: Moist mucous membrane. No ulcer or thrush noted. NECK: Supple. No JVD. LUNGS: Have a fair airflow with a few rhonchi. HEART: S1, S2. ABDOMEN: Soft, nontender. No organomegaly. EXTREMITIES: No edema. NEUROLOGIC: Awake and alert. Follows simple command. MEDICATIONS: He is on Ambien 5 mg at bedtime p.r.n., Ancef 1 g IV every 8 hours, Anusol p.r.n. basis, Bactroban ointment to affected area, Cardura 4 mg daily, vitamin D 50,000 units weekly, Dulcolax 10 mg at bedtime p.r.n., DuoNeb every 6 hours p.r.n., potassium 10 mEq daily, Lipitor 20 mg daily, Lovaza 1 g twice a day, MiraLax 17 g , Norvasc 10 mg daily, Periactin 4 mg 3 times a day, Protonix 40 mg twice a day, IV fluid normal saline 60 mL per hour, Synthroid 25 mcg twice a day, and multivitamins daily. LABORATORY DATA: Reviewed. No new lab is available since yesterday. IMPRESSION AND PLAN: Chronic obstructive lung disease, recurrent bowel obstruction, esophageal ulcer, gastroparesis, chronic constipation, rectal ulcer with bleeding, coronary artery disease, hypertension, hyperlipidemia, anemia. From pulmonary point of view, he is doing well. Sleep apnea precautions, keep head at 45 degrees, careful with sedation, fall precaution, stool softener, gastric prophylaxis, SCD to lower extremities. Thank you and we will follow with you. Dakotah Farrar MD [facility] # [id number]
--- NOTE | 2017-09-06 16:46 | PN ---
DATE: 09/06/2017 SUBJECTIVE: The patient is in bed, in no acute distress, nontoxic. PHYSICAL EXAMINATION: VITAL SIGNS: Temperature is 98, blood pressure is 115/50, respiratory rate of 20, heart rate of 89. HEENT: Unremarkable. NECK: Supple. LUNGS: Have decreased breath sounds. HEART: Normal S1, S2. ABDOMEN: Soft, nontender. LABORATORY DATA: Reveals a white count of 8.8, hemoglobin of 9, platelets of 312. Chemistries reveal a BUN of 7, creatinine of 0.8. Urinalysis is noted. Microbiology is noted. The patient's medications are reviewed. Dr. Liang's note from this morning is reviewed. ASSESSMENT AND PLAN: This is a 81-year-old male who was seen earlier this morning in room 302 with urinary retention with sensitive Staphylococcus aureus, status post Douglas catheter placement and removal, status post community-acquired pneumonia, history of sepsis with a colocutaneous fistula associated with an infected inguinal mesh in a patient who has coronary artery disease, hypertension, dyslipidemia, chronic obstructive lung disease, arthritis, diverticulitis, and day#5 of cefazolin, would complete 7 days. We will follow with you. Jonathan Woods MD
[2017-09-07] MEDS: Sodium Chloride 0.9% 1,000 ML IV SCH ×3 (02:44→22:06)
[2017-09-07] MEDS: ceFAZolin 1 gm in NS 1 GM/100 ML BAG IVPB SCH ×3 (05:50→21:58)
[2017-09-07] MEDS: Pantoprazole 40 mg EC Tab PO SCH ×2 (05:51→17:25)
[2017-09-07] MEDS: Levothyroxine 25 MCG TAB PO SCH ×2 (05:51→17:26)
[2017-09-07 07:25] LABS: BASO # 0.02 K/mm3 (0.0-2.0); BASO % 0.4 % (0.0-3.0); EOS # 0.6 (0.0-0.7); EOS % 11.2 % (1.5-5.0); GRAN # 2.79 (1.4-6.5); GRAN % 49.4 % (50.0-68.0); HEMOGLOBIN 8.6 g/dL (14.0-18.0); LYMPH # 1.8 (1.2-3.4); LYMPH % 32.4 % (22.0-35.0); MEAN CELL VOLUME 88.6 fl (80.0-105.0); MEAN CORPUSCULAR HEMOGLOBIN 30.6 pg (25.0-35.0); MEAN CORPUSCULAR HGB CONC 34.5 g/dl (31.0-37.0); MEAN PLATELET VOLUME 8.4 fl (7.0-11.0); MONO # 0.4 (0.1-0.6); MONO % 6.6 % (1.0-6.0); RBC 2.81 10^6/uL (3.5-6.1); RED CELL DISTRIBUTION WIDTH 16.2 % (11.5-14.5); WHITE BLOOD COUNT 5.6 10^3/ul (4.5-11.0)
[2017-09-07 07:30] LABS: ALB/GLOB RATIO 0.9 (1.1-1.8); ALBUMIN 2.4 g/dL (3.0-4.8); ALT/SGPT 28 U/L (7-56); AST/SGOT 21 U/L (17-59); BLOOD UREA NITROGEN 8 mg/dL (7-21); CALCIUM 8.5 mg/dL (8.4-10.5); GFR AFRICAN-AMERICAN > 60; GFR NON-AFRICAN AMERICAN > 60
[2017-09-07] MEDS: Multivitamin With Minerals Tab PO SCH (08:06)
[2017-09-07] MEDS: Omega-3-Acid Ethyl Esters 1 GM Cap PO SCH ×2 (09:44→17:25)
[2017-09-07] MEDS: POLYETHYLENE GLYCOL 3350 17 GM/Dose PACKET PO SCH ×4 (09:44→22:00)
[2017-09-07] MEDS: Potassium Chloride 10 mEq ER Tab PO SCH (09:44)
[2017-09-07] MEDS: Hydrocortisone 2.5% Rectal Cream(30 gm) PR SCH ×3 (09:46→17:26)
--- NOTE | 2017-09-07 11:38 | PN ---
DATE: 09/07/2017 SUBJECTIVE: The patient is in bed, in no acute distress, nontoxic. No fevers. PHYSICAL EXAMINATION: VITAL SIGNS: Temperature is 98, blood pressure is 116/50, respiratory rate of 18. HEENT: Unremarkable. NECK: Supple. LUNGS: Have decreased breath sounds. HEART: Normal S1, S2. ABDOMEN: Soft, nontender. LABORATORY DATA: Reveals the patient's white count is 5.6. BUN of 8, creatinine of 0.8. Review of orders reveals the patient is on cefazolin. ASSESSMENT AND PLAN This is a 81-year-old male who was seen earlier this morning with urinary retention, sensitive Staphylococcus aureus, status post Douglas catheter placement and removal, status post community-acquired pneumonia, history of sepsis with a cutaneous fistula associated with an infected inguinal mesh, coronary artery disease, hypertension, dyslipidemia, chronic obstructive lung disease, arthritis, diverticulitis. Today is day #6 of cefazolin, will complete 7 days. Jonathan Woods MD
--- NOTE | 2017-09-07 16:26 | CP.PCM.PN ---
Subjective - Date & Time of Evaluation Date of Evaluation: 09/07/17 Time of Evaluation: 15:30 - Subjective Subjective: NAD, denies chest pain. no SOB Objective - Vital Signs/Intake and Output Vital Signs (last 24 hours): Temp Pulse Resp BP Pulse Ox 97.9 F 81 20 115/56 L 99 09/07/17 10:00 09/07/17 10:00 09/07/17 10:00 09/07/17 10:00 09/07/17 10:00 - Medications Medications: Current Medications Albuterol/Ipratropium (Duoneb 3 Mg/0.5 Mg (3 Ml) Ud) 3 ml IH [id number] PRN; Protocol PRN Reason: Shortness of Breath Amlodipine Besylate (Norvasc) 10 mg PO DAILY ZACK PRN Reason: Protocol Last Admin: 09/07/17 09:44 Dose: 10 mg Atorvastatin Calcium (Lipitor) 20 mg PO HS ZACK PRN Reason: Protocol Last Admin: 09/06/17 21:43 Dose: 20 mg Bisacodyl (Dulcolax) 10 mg RC DAILY ZACK PRN Reason: Protocol Last Admin: 09/07/17 09:44 Dose: Not Given Cyproheptadine HCl (Periactin) 4 mg PO TID ZACK PRN Reason: Protocol Last Admin: 09/07/17 14:04 Dose: 4 mg Doxazosin Mesylate (Cardura) 4 mg PO DAILY ZACK PRN Reason: Protocol Last Admin: 09/07/17 09:45 Dose: 4 mg Ergocalciferol (Drisdol 50,000 Intl Units Cap) 1 cap PO Fr@1000 ZACK PRN Reason: Protocol Last Admin: 09/05/17 10:32 Dose: 1 cap Hydrocortisone (Anusol-Hc) 0 gm OR TID ZACK PRN Reason: Protocol Last Admin: 09/07/17 14:04 Dose: 1 applic Sodium Chloride (Sodium Chloride 0.9%) 1,000 mls @ 60 mls/hr IV .[id number] [facility] Last Admin: 09/07/17 03:00 Dose: 60 mls/hr Cefazolin Sodium (Ancef 1gm In Ns) 1 gm in 100 mls @ 100 mls/hr IVPB 0600,1400, 2200 ZACK PRN Reason: Protocol Stop: 09/08/17 22:01 Last Admin: 09/07/17 14:02 Dose: 100 mls/hr Levothyroxine Sodium (Synthroid) 25 mcg PO 0600,1600 [facility] PRN Reason: Protocol Last Admin: 09/07/17 05:51 Dose: 25 mcg Multivitamins/Minerals (Therapeutic-M Tab) 1 tab PO 0800 ZACK PRN Reason: Protocol Last Admin: 09/07/17 08:06 Dose: 1 tab Mupirocin (Bactroban Ointment) 0 gm NS BID ZACK PRN Reason: Protocol Stop: 09/07/17 18:01 Last Admin: 09/07/17 09:45 Dose: 1 applic Pqkmn-3-Wxxu Ethyl Esters (Lovaza) 1 gm PO BID [facility] Last Admin: 09/07/17 09:44 Dose: 1 gm Pantoprazole Sodium (Protonix Ec Tab) 40 mg PO 0600,1600 [facility] PRN Reason: Protocol Last Admin: 09/07/17 05:51 Dose: 40 mg Polyethylene Glycol (Miralax) 17 gm PO QID ZACK PRN Reason: Protocol Last Admin: 09/07/17 14:04 Dose: Not Given Potassium Chloride (Klor-Con 10) 10 meq PO DAILY [facility] Last Admin: 09/07/17 09:44 Dose: 10 meq Zolpidem Tartrate (Ambien) 5 mg PO HS PRN; Protocol PRN Reason: Insomnia - Labs Labs: 09/07/17 06:30 09/07/17 06:30 - Respiratory Exam Respiratory Exam: Clear to Ausculation Bilateral, NORMAL BREATHING PATTERN - Cardiovascular Exam Cardiovascular Exam: REGULAR RHYTHM - GI/Abdominal Exam GI & Abdominal Exam: Soft, Normal Bowel Sounds - Neurological Exam Neurological Exam: Alert, Awake - Skin Skin Exam: Dry, Warm Assessment and Plan (1) UTI (urinary tract infection) Status: Acute (2) Urinary retention Status: Resolved - Assessment and Plan (Free Text) Plan: continue PT/SW for discharge planning, Dr. Ramirez to resume care of patient in am
--- NOTE | 2017-09-07 21:16 | PN ---
DATE: 09/07/2017 SUBJECTIVE: This patient was seen and evaluated earlier. Patient is comfortable, tolerating the diet. Patient does not like the hospital pureed food, but he is able to tolerate the pureed food from home. PHYSICAL EXAMINATION: VITAL SIGNS: Temperature is 98, blood pressure 105/52, pulse 80, respirations 18, O2 saturation is 98%. HEENT: Atraumatic, anicteric. NECK: Supple. HEART: S1 and S2 heard. LUNGS: Bilateral air entry present. ABDOMEN: Soft. There is no mass palpable. EXTREMITIES: No edema. No cyanosis. LABORATORY DATA: Hemoglobin is 8.6, hematocrit 24.9, WBC is 5.6, platelets 393. Chemistry is essentially unremarkable. IMPRESSION: 1. Gastrointestinal bleeding, LA grade C esophageal ulcerations. 2. Severe gastroparesis. 3. Fecal impaction and stercoral ulcerations. Other comorbidities include status post small bowel resection before. 4. Chronic obstructive pulmonary disease. 5. Hypertension. 6. Dyslipidemia. RECOMMENDATIONS: Followup of the hemoglobin and hematocrit. If the patient is not ambulating, we would consider low-dose subcutaneous heparin prophylaxis, but there is a slight drop in hemoglobin noticed. We need to have a close followup of the hemoglobin and hematocrit, presently on Protonix 40 mg twice daily. We will continue to closely follow up with care and suggest further management based on the clinical course. Patient is on MiraLax 17 g 4 times a day; we will reduce the dose to twice daily. Hernan Osorio MD
--- NOTE | 2017-09-07 23:55 | PN ---
DATE: 09/07/2017 PULMONARY PROGRESS NOTE REFERRING PHYSICIAN: Hannah Ramirez MD. SUBJECTIVE: He is lying in the bed, head at 45 degree, doing well in therapy, improved appetite. Had a bowel movement. No urinary retention. No leg pain or leg swelling. Short of breath with exertion though. OBJECTIVE: GENERAL: In no acute distress. VITAL SIGNS: Temperature is 98, heart rate is 80, respiratory rate is 18, blood pressure 105/52, pulse ox 98% on room air. HEENT: Moist mucous membrane. Crowded airway. NECK: Supple. No JVD. LUNGS: Have fair airflow with rhonchi. HEART: S1 and S2. ABDOMEN: Soft, nontender. No organomegaly. EXTREMITIES: No edema. NEUROLOGIC: Awake, alert, and follows simple command. MEDICATIONS: He is on Ambien 5 mg at bedtime p.r.n., Ancef 1 g IV three times a day, Anusol three times a day, Cardura 4 mg daily, vitamin D 50,000 units p.o. weekly, Dulcolax 10 mg rectally daily, DuoNeb every 6 hours, potassium 10 mEq daily, Lipitor 20 mg daily, Lovaza 1 g twice a day, MiraLax 17 g four times a day, Norvasc 10 mg daily, Periactin 4 mg three times a day, Protonix 40 mg twice a day, IV fluid normal saline 60 mL per hour, Synthroid 25 mcg twice a day, and also multivitamins daily. LABORATORY DATA: Shows hemoglobin 8.6, hematocrit 24.9, WBC 5.6, platelets is 393. Sodium 139, potassium 3.9, chloride 107, bicarbonate 25, BUN 8, creatinine 0.8, glucose 106, calcium 8.5. AST 21, ALT 28, alkaline phosphatase is 39, albumin is 2.4. Urine culture, there is no growth. IMPRESSION AND PLAN: Chronic obstructive lung disease, recurrent bowel obstruction, esophageal ulcer, gastroparesis, chronic constipation, rectal ulcer with bleed, coronary artery disease, hypertension, hyperlipidemia. Pulmonary point of view, doing okay. Continue therapy, bronchodilators, stool softener, fall precaution. Thank you and we will follow with you. Dakotah Farrar MD [facility] # [id number]
[2017-09-08] MEDS: ceFAZolin 1 gm in NS 1 GM/100 ML BAG IVPB SCH ×3 (05:42→21:14)
[2017-09-08] MEDS: Levothyroxine 25 MCG TAB PO SCH ×2 (05:42→16:57)
[2017-09-08] MEDS: Pantoprazole 40 mg EC Tab PO SCH ×2 (05:43→16:57)
[2017-09-08] MEDS: Multivitamin With Minerals Tab PO SCH (08:17)
[2017-09-08] MEDS: Hydrocortisone 2.5% Rectal Cream(30 gm) PR SCH ×3 (10:16→17:07)
[2017-09-08] MEDS: POLYETHYLENE GLYCOL 3350 17 GM/Dose PACKET PO SCH ×6 (10:17→21:16)
[2017-09-08] MEDS: Omega-3-Acid Ethyl Esters 1 GM Cap PO SCH ×2 (10:17→17:07)
[2017-09-08] MEDS: Potassium Chloride 10 mEq ER Tab PO SCH (10:17)
--- NOTE | 2017-09-08 10:43 | CP.PCM.PN ---
<Alonso Pack - Last Filed: 09/08/17 10:24> Subjective - Date & Time of Evaluation Date of Evaluation: 09/08/17 Time of Evaluation: 10:24 - Subjective Subjective: GI Progress Note For Dr. Osorio This is a 81M was seen and examined this AM at bedside no acute events overnight. Denies bloody BM, nausea vomiting or any new or concerning symptoms. Objective - Vital Signs/Intake and Output Vital Signs (last 24 hours): Temp Pulse Resp BP Pulse Ox 97.5 F L 75 20 121/63 96 09/08/17 06:00 09/08/17 06:00 09/08/17 06:00 09/08/17 10:21 09/08/17 06:00 - Medications Medications: Current Medications Albuterol/Ipratropium (Duoneb 3 Mg/0.5 Mg (3 Ml) Ud) 3 ml IH [id number] PRN; Protocol PRN Reason: Shortness of Breath Amlodipine Besylate (Norvasc) 10 mg PO DAILY ZACK PRN Reason: Protocol Last Admin: 09/08/17 10:21 Dose: 10 mg Atorvastatin Calcium (Lipitor) 20 mg PO HS [facility]ACK PRN Reason: Protocol Last Admin: 09/07/17 21:58 Dose: 20 mg Bisacodyl (Dulcolax) 10 mg RC DAILY [facility]ACK PRN Reason: Protocol Last Admin: 09/08/17 10:17 Dose: Not Given Cyproheptadine HCl (Periactin) 4 mg PO TID [facility]ACK PRN Reason: Protocol Last Admin: 09/08/17 10:18 Dose: 4 mg Doxazosin Mesylate (Cardura) 4 mg PO DAILY [facility]ACK PRN Reason: Protocol Last Admin: 09/08/17 10:17 Dose: 4 mg Ergocalciferol (Drisdol 50,000 Intl Units Cap) 1 cap PO Fr@1000 [facility] PRN Reason: Protocol Last Admin: 09/05/17 10:32 Dose: 1 cap Hydrocortisone (Anusol-Hc) 0 gm [place] TID [facility]ACK PRN Reason: Protocol Last Admin: 09/08/17 10:16 Dose: 1 applic Sodium Chloride (Sodium Chloride 0.9%) 1,000 mls @ 60 mls/hr IV .[id number] [facility] Last Admin: 09/07/17 22:06 Dose: 60 mls/hr Cefazolin Sodium (Ancef 1gm In Ns) 1 gm in 100 mls @ 100 mls/hr IVPB 0600,1400, 2200 [facility] PRN Reason: Protocol Stop: 09/08/17 22:01 Last Admin: 09/08/17 05:42 Dose: 100 mls/hr Levothyroxine Sodium (Synthroid) 25 mcg PO 0600,1600 [facility] PRN Reason: Protocol Last Admin: 09/08/17 05:42 Dose: 25 mcg Multivitamins/Minerals (Therapeutic-M Tab) 1 tab PO 0800 [facility]ACK PRN Reason: Protocol Last Admin: 09/08/17 08:17 Dose: 1 tab Ibbcy-0-Kfup Ethyl Esters (Lovaza) 1 gm PO BID [facility]S [facility]CLUDE 234 BEDS AT [facility] Last Admin: 09/08/17 10:17 Dose: 1 gm Pantoprazole Sodium (Protonix Ec Tab) 40 mg PO 0600,1600 [facility] PRN Reason: Protocol Last Admin: 09/08/17 05:43 Dose: 40 mg Polyethylene Glycol (Miralax) 17 gm PO QID [facility]ACK PRN Reason: Protocol Last Admin: 09/08/17 10:17 Dose: Not Given Polyethylene Glycol (Miralax) 17 gm PO BID [facility] Last Admin: 09/08/17 10:18 Dose: Not Given Potassium Chloride (Klor-Con 10) 10 meq PO DAILY [facility] 234 BEDS AT [facility] Last Admin: 09/08/17 10:17 Dose: 10 meq Zolpidem Tartrate (Ambien) 5 mg PO HS PRN; Protocol PRN Reason: Insomnia - Labs Labs: 09/07/17 06:30 09/07/17 06:30 - Constitutional Appears: Non-toxic, No Acute Distress - Head Exam Head Exam: ATRAUMATIC, NORMOCEPHALIC - Eye Exam Eye Exam: EOMI - ENT Exam ENT Exam: Mucous Membranes Moist - Respiratory Exam Respiratory Exam: NORMAL BREATHING PATTERN - Cardiovascular Exam Cardiovascular Exam: +S1, +S2 - GI/Abdominal Exam GI & Abdominal Exam: Soft. absent: Guarding, Rigid, Tenderness - Neurological Exam Neurological Exam: Alert, Awake - Psychiatric Exam Psychiatric exam: Normal Affect, Normal Mood - Skin Skin Exam: Dry, Intact Assessment and Plan - Assessment and Plan (Free Text) Assessment: 81M with resolving stercoral ulcer Continue stool softeners Pureed diet D/W Dr. Devon Pack PGY2 <DevonEdwinedwardo V - Last Filed: 09/08/17 21:09> Objective - Vital Signs/Intake and Output Vital Signs (last 24 hours): Temp Pulse Resp BP Pulse Ox 98.6 F 84 16 111/67 97 09/08/17 16:00 09/08/17 16:00 09/08/17 16:00 09/08/17 16:00 09/08/17 16:00 - Medications Medications: Current Medications Albuterol/Ipratropium (Duoneb 3 Mg/0.5 Mg (3 Ml) Ud) 3 ml IH [id number] PRN; Protocol PRN Reason: Shortness of Breath Amlodipine Besylate (Norvasc) 10 mg PO DAILY ZACK PRN Reason: Protocol Last Admin: 09/08/17 10:21 Dose: 10 mg Atorvastatin Calcium (Lipitor) 20 mg PO HS [facility]ACK PRN Reason: Protocol Last Admin: 09/07/17 21:58 Dose: 20 mg Bisacodyl (Dulcolax) 10 mg RC DAILY [facility] PRN Reason: Protocol Last Admin: 09/08/17 10:17 Dose: Not Given Cyproheptadine HCl (Periactin) 4 mg PO TID [facility]ACK PRN Reason: Protocol Last Admin: 09/08/17 17:07 Dose: 4 mg Doxazosin Mesylate (Cardura) 4 mg PO DAILY [facility]ACK PRN Reason: Protocol Last Admin: 09/08/17 10:17 Dose: 4 mg Ergocalciferol (Drisdol 50,000 Intl Units Cap) 1 cap PO Fr@1000 [facility]ACK PRN Reason: Protocol Last Admin: 09/05/17 10:32 Dose: 1 cap Hydrocortisone (Anusol-Hc) 0 gm GA TID ZACK PRN Reason: Protocol Last Admin: 09/08/17 17:07 Dose: 1 applic Sodium Chloride (Sodium Chloride 0.9%) 1,000 mls @ 60 mls/hr IV .[id number] [facility] Last Admin: 09/08/17 14:49 Dose: 60 mls/hr Cefazolin Sodium (Ancef 1gm In Ns) 1 gm in 100 mls @ 100 mls/hr IVPB 0600,1400, 2200 [facility]ACK PRN Reason: Protocol Stop: 09/08/17 22:01 Last Admin: 09/08/17 14:54 Dose: 100 mls/hr Levothyroxine Sodium (Synthroid) 25 mcg PO 0600,1600 [facility] PRN Reason: Protocol Last Admin: 09/08/17 16:57 Dose: 25 mcg Multivitamins/Minerals (Therapeutic-M Tab) 1 tab PO 0800 ZACK PRN Reason: Protocol Last Admin: 09/08/17 08:17 Dose: 1 tab Dlwmy-4-Ygxy Ethyl Esters (Lovaza) 1 gm PO BID [facility] Last Admin: 09/08/17 17:07 Dose: 1 gm Pantoprazole Sodium (Protonix Ec Tab) 40 mg PO 0600,1600 [facility] PRN Reason: Protocol Last Admin: 09/08/17 16:57 Dose: 40 mg Polyethylene Glycol (Miralax) 17 gm PO QID [facility]ACK PRN Reason: Protocol Last Admin: 09/08/17 17:07 Dose: Not Given Polyethylene Glycol (Miralax) 17 gm PO BID [facility] Last Admin: 09/08/17 17:07 Dose: Not Given Potassium Chloride (Klor-Con 10) 10 meq PO DAILY [facility]S [facility]CLUDE 234 BEDS AT [facility] Last Admin: 09/08/17 10:17 Dose: 10 meq Zolpidem Tartrate (Ambien) 5 mg PO HS PRN; Protocol PRN Reason: Insomnia - Labs Labs: 09/07/17 06:30 09/07/17 06:30 Attending/Attestation - Attestation I have personally seen and examined this patient.: Yes I have fully participated in the care of the patient.: Yes I have reviewed all pertinent clinical information, including history, physical exam and plan: Yes Notes (Text): This is an addendum to GI progress report dictated by the Foreign Service Teacher.The patient was seen and examined earlier. Medical records, lab studies, imagings were reviewed. Last 24 hours events reviewed. Agreed with the above treatment plan as outlined in Foreign Service Teacher 's notes the with the addition of the following Patient is now moving his bowels, ambulating Dose of MiraLAX reduced to twice a day from 4 times a day on examination abdomen soft no tenderness Hemoglobin slight drop noticed. No obvious melena or bright red blood per rectum Continue high-dose PPI Close follow-up of hemoglobin and hematocrit Significant gastroparesis His custody of the patient again at length patient needs to be only on a pured food Patient prefers home for because of taste. Patient does not like hospital. Food Need to stay on long-term MiraLAX to avoid recurrent fecal impactions Repeat EGD in 8 weeks' time to evaluate the healing of ulcer of the esophagus 09/08/17 21:08
[2017-09-08] MEDS: Sodium Chloride 0.9% 1,000 ML IV SCH (14:49)
--- NOTE | 2017-09-08 15:09 | CP.PCM.PN ---
Subjective - Date & Time of Evaluation Date of Evaluation: 09/08/17 Time of Evaluation: 11:20 - Subjective Subjective: Comfortable, no fevers, not in distress. Objective - Vital Signs/Intake and Output Vital Signs (last 24 hours): Temp Pulse Resp BP Pulse Ox 97.5 F L 75 20 111/55 L 96 09/08/17 06:00 09/08/17 06:00 09/08/17 06:00 09/08/17 06:00 09/08/17 06:00 - Medications Medications: Current Medications Albuterol/Ipratropium (Duoneb 3 Mg/0.5 Mg (3 Ml) Ud) 3 ml IH [id number] PRN; Protocol PRN Reason: Shortness of Breath Amlodipine Besylate (Norvasc) 10 mg PO DAILY [facility]ACK PRN Reason: Protocol Last Admin: 09/07/17 09:44 Dose: 10 mg Atorvastatin Calcium (Lipitor) 20 mg PO HS [facility]ACK PRN Reason: Protocol Last Admin: 09/07/17 21:58 Dose: 20 mg Bisacodyl (Dulcolax) 10 mg RC DAILY [facility] PRN Reason: Protocol Last Admin: 09/07/17 09:44 Dose: Not Given Cyproheptadine HCl (Periactin) 4 mg PO TID ZACK PRN Reason: Protocol Last Admin: 09/07/17 17:25 Dose: 4 mg Doxazosin Mesylate (Cardura) 4 mg PO DAILY [facility]ACK PRN Reason: Protocol Last Admin: 09/07/17 09:45 Dose: 4 mg Ergocalciferol (Drisdol 50,000 Intl Units Cap) 1 cap PO Fr@1000 [facility] PRN Reason: Protocol Last Admin: 09/05/17 10:32 Dose: 1 cap Hydrocortisone (Anusol-Hc) 0 gm [place] TID [facility]ACK PRN Reason: Protocol Last Admin: 09/07/17 17:26 Dose: 1 applic Sodium Chloride (Sodium Chloride 0.9%) 1,000 mls @ 60 mls/hr IV .[id number] [facility] Last Admin: 09/07/17 22:06 Dose: 60 mls/hr Cefazolin Sodium (Ancef 1gm In Ns) 1 gm in 100 mls @ 100 mls/hr IVPB 0600,1400, 2200 [facility]ACK PRN Reason: Protocol Stop: 09/08/17 22:01 Last Admin: 03/26/18 05:42 Dose: 100 mls/hr Levothyroxine Sodium (Synthroid) 25 mcg PO 0600,1600 [facility] PRN Reason: Protocol Last Admin: 09/08/17 05:42 Dose: 25 mcg Multivitamins/Minerals (Therapeutic-M Tab) 1 tab PO 0800 [facility]ACK PRN Reason: Protocol Last Admin: 09/08/17 08:17 Dose: 1 tab Ciicp-6-Zqbs Ethyl Esters (Lovaza) 1 gm PO BID [facility] Last Admin: 09/07/17 17:25 Dose: 1 gm Pantoprazole Sodium (Protonix Ec Tab) 40 mg PO 0600,1600 [facility] PRN Reason: Protocol Last Admin: 09/08/17 05:43 Dose: 40 mg Polyethylene Glycol (Miralax) 17 gm PO QID [facility]ACK PRN Reason: Protocol Last Admin: 09/07/17 22:00 Dose: Not Given Polyethylene Glycol (Miralax) 17 gm PO BID [facility] Potassium Chloride (Klor-Con 10) 10 meq PO DAILY [facility] Last Admin: 09/07/17 09:44 Dose: 10 meq Zolpidem Tartrate (Ambien) 5 mg PO HS PRN; Protocol PRN Reason: Insomnia - Labs Labs: 09/07/17 06:30 09/07/17 06:30 - Constitutional Appears: Chronically Ill - Head Exam Head Exam: NORMAL INSPECTION - ENT Exam ENT Exam: Mucous Membranes Moist - Neck Exam Neck Exam: absent: Meningismus - Respiratory Exam Respiratory Exam: Decreased Breath Sounds - Cardiovascular Exam Cardiovascular Exam: +S1, +S2 - GI/Abdominal Exam GI & Abdominal Exam: Soft. 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
--- NOTE | 2017-09-08 22:06 | CP.PCM.PN ---
Subjective - Date & Time of Evaluation Date of Evaluation: 09/08/17 Time of Evaluation: 22:04 - Subjective Subjective: S: It was requested to insert a heparin lock. He has no complaints at this time. Pertinent medical record was reviewed. O: Last Vital Signs 3 Temp 98.6 F 09/08/17 16:00 Pulse 84 09/08/17 16:00 Resp 16 09/08/17 16:00 BP 111/67 09/08/17 16:00 Pulse Ox 97 09/08/17 16:00 Awake, alert , not in distress. LUNGS: Normal breathing pattern. A:Poor venous access. P: # 20 angiocath was inserted in right forearm. Objective - Vital Signs/Intake and Output Vital Signs (last 24 hours): Temp Pulse Resp BP Pulse Ox 98.6 F 84 16 111/67 97 09/08/17 16:00 09/08/17 16:00 09/08/17 16:00 09/08/17 16:00 09/08/17 16:00 - Medications Medications: Current Medications Albuterol/Ipratropium (Duoneb 3 Mg/0.5 Mg (3 Ml) Ud) 3 ml IH [id number] PRN; Protocol PRN Reason: Shortness of Breath Amlodipine Besylate (Norvasc) 10 mg PO DAILY [facility]ACK PRN Reason: Protocol Last Admin: 09/08/17 10:21 Dose: 10 mg Atorvastatin Calcium (Lipitor) 20 mg PO HS [facility]ACK PRN Reason: Protocol Last Admin: 09/08/17 21:14 Dose: 20 mg Bisacodyl (Dulcolax) 10 mg RC DAILY [facility] PRN Reason: Protocol Last Admin: 09/08/17 10:17 Dose: Not Given Cyproheptadine HCl (Periactin) 4 mg PO TID [facility]ACK PRN Reason: Protocol Last Admin: 09/08/17 17:07 Dose: 4 mg Doxazosin Mesylate (Cardura) 4 mg PO DAILY [facility] PRN Reason: Protocol Last Admin: 09/08/17 10:17 Dose: 4 mg Ergocalciferol (Drisdol 50,000 Intl Units Cap) 1 cap PO Fr@1000 [facility]ACK PRN Reason: Protocol Last Admin: 09/05/17 10:32 Dose: 1 cap Hydrocortisone (Anusol-Hc) 0 gm [place] TID [facility]ACK PRN Reason: Protocol Last Admin: 09/08/17 17:07 Dose: 1 applic Sodium Chloride (Sodium Chloride 0.9%) 1,000 mls @ 60 mls/hr IV .[id number] [facility] Last Admin: 09/08/17 14:49 Dose: 60 mls/hr Levothyroxine Sodium (Synthroid) 25 mcg PO 0600,1600 [facility] PRN Reason: Protocol Last Admin: 09/08/17 16:57 Dose: 25 mcg Multivitamins/Minerals (Therapeutic-M Tab) 1 tab PO 0800 [facility]ACK PRN Reason: Protocol Last Admin: 09/08/17 08:17 Dose: 1 tab Qyprh-7-Xcbt Ethyl Esters (Lovaza) 1 gm PO BID [facility] Last Admin: 09/08/17 17:07 Dose: 1 gm Pantoprazole Sodium (Protonix Ec Tab) 40 mg PO 0600,1600 [facility] PRN Reason: Protocol Last Admin: 09/08/17 16:57 Dose: 40 mg Polyethylene Glycol (Miralax) 17 gm PO QID [facility] PRN Reason: Protocol Last Admin: 09/08/17 21:16 Dose: 17 gm Polyethylene Glycol (Miralax) 17 gm PO BID [facility] Last Admin: 09/08/17 17:07 Dose: Not Given Potassium Chloride (Klor-Con 10) 10 meq PO DAILY [facility] Last Admin: 09/08/17 10:17 Dose: 10 meq Zolpidem Tartrate (Ambien) 5 mg PO HS PRN; Protocol PRN Reason: Insomnia - Labs Labs: 09/07/17 06:30 09/07/17 06:30
--- NOTE | 2017-09-08 23:56 | CP.PCM.PN ---
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 Pt recently discharged [place] [facility] [place]17 and re-admitted on 08/28/17 for rectal bleeding. Hgb dropped to 7.8 and is s/p 2 units of PRBC. Endoscopy revealed grade C esophageal ulcerations and gastroparesis. Colonscopy revealed rectal ulcerations. Fecal impaction noted again. Pt transferred to TCU on 09/02 for physical therapy. Today, pt seen at bedside reporting fatigue after completing PT. Denies any shortness of breath, chest pain, headache, fever, chills, diarrhea, constipation, paraesthesias, or urinary changes. Objective - Vital Signs/Intake and Output Vital Signs (last 24 hours): Temp Pulse Resp BP Pulse Ox 98.6 F 84 16 111/67 97 09/08/17 16:00 09/08/17 16:00 09/08/17 16:00 09/08/17 16:00 09/08/17 16:00 - Medications Medications: Current Medications Albuterol/Ipratropium (Duoneb 3 Mg/0.5 Mg (3 Ml) Ud) 3 ml IH [id number] PRN; Protocol PRN Reason: Shortness of Breath Amlodipine Besylate (Norvasc) 10 mg PO DAILY ZACK PRN Reason: Protocol Last Admin: 09/08/17 10:21 Dose: 10 mg Atorvastatin Calcium (Lipitor) 20 mg PO HS ZACK PRN Reason: Protocol Last Admin: 09/08/17 21:14 Dose: 20 mg Bisacodyl (Dulcolax) 10 mg RC DAILY ZACK PRN Reason: Protocol Last Admin: 09/08/17 10:17 Dose: Not Given Cyproheptadine HCl (Periactin) 4 mg PO TID ZACK PRN Reason: Protocol Last Admin: 09/08/17 17:07 Dose: 4 mg Doxazosin Mesylate (Cardura) 4 mg PO DAILY ZACK PRN Reason: Protocol Last Admin: 09/08/17 10:17 Dose: 4 mg Ergocalciferol (Drisdol 50,000 Intl Units Cap) 1 cap PO Fr@1000 ZACK PRN Reason: Protocol Last Admin: 09/05/17 10:32 Dose: 1 cap Hydrocortisone (Anusol-Hc) 0 gm TX TID ZACK PRN Reason: Protocol Last Admin: 09/08/17 17:07 Dose: 1 applic Sodium Chloride (Sodium Chloride 0.9%) 1,000 mls @ 60 mls/hr IV .[id number] ZACK Last Admin: 09/08/17 14:49 Dose: 60 mls/hr Levothyroxine Sodium (Synthroid) 25 mcg PO 0600,1600 ZACK PRN Reason: Protocol Last Admin: 09/08/17 16:57 Dose: 25 mcg Multivitamins/Minerals (Therapeutic-M Tab) 1 tab PO 0800 ZACK PRN Reason: Protocol Last Admin: 09/08/17 08:17 Dose: 1 tab [id number]-[id number] Ethyl Esters (Lovaza) 1 gm PO BID ZACK Last Admin: 09/08/17 17:07 Dose: 1 gm Pantoprazole Sodium (Protonix Ec Tab) 40 mg PO 0600,1600 ZACK PRN Reason: Protocol Last Admin: 09/08/17 16:57 Dose: 40 mg Polyethylene Glycol (Miralax) 17 gm PO QID ZACK PRN Reason: Protocol Last Admin: 09/08/17 21:16 Dose: 17 gm Polyethylene Glycol (Miralax) 17 gm PO BID ZACK Last Admin: 09/08/17 17:07 Dose: Not Given Potassium Chloride (Klor-Con 10) 10 meq PO DAILY [facility] Last Admin: 09/08/17 10:17 Dose: 10 meq Zolpidem Tartrate (Ambien) 5 mg PO HS PRN; Protocol PRN Reason: Insomnia - Labs Labs: 09/07/17 06:30 09/07/17 06:30 - Constitutional Appears: Chronically Ill - Head Exam Head Exam: ATRAUMATIC, NORMAL INSPECTION, NORMOCEPHALIC - Eye Exam Eye Exam: EOMI, Normal appearance, PERRL Pupil Exam: NORMAL ACCOMODATION, PERRL - ENT Exam ENT Exam: Mucous Membranes Moist, Normal Exam - Neck Exam Neck Exam: Full ROM, Normal Inspection. absent: Lymphadenopathy - Respiratory Exam Respiratory Exam: Clear to Ausculation Bilateral, NORMAL BREATHING PATTERN - Cardiovascular Exam Cardiovascular Exam: REGULAR RHYTHM, +S1, +S2. absent: Murmur - GI/Abdominal Exam GI & Abdominal Exam: Soft, Hernia, Normal Bowel Sounds - Extremities Exam Extremities Exam: Full ROM, Normal Capillary Refill, Normal Inspection. absent : Joint Swelling, Pedal Edema - Back Exam Back Exam: NORMAL INSPECTION - Neurological Exam Neurological Exam: Alert, Awake, Oriented x3 - Psychiatric Exam Psychiatric exam: Normal Affect, Normal Mood - Skin Skin Exam: Dry, Intact, Normal Color, Warm Assessment and Plan (1) UTI (urinary tract infection) Status: Acute (2) Urinary retention Status: Resolved (3) Abdominal pain Status: Acute (4) Anemia Status: Acute (5) Fecal impaction Status: Acute (6) GI bleed Status: Acute (7) Gastroparesis Status: Acute (8) History of blood transfusion Status: Acute (9) MRSA nasal colonization Status: Acute (10) EMILE (obstructive sleep apnea) Status: Acute (11) Stercoral ulcer of anus Status: Acute - Assessment and Plan (Free Text) Plan: Labs ordered. IVF hydration. s/p cefalozin abx. s/p Bactroban for (+) MRSA nares.VTE/GI prophlyaxis. PT/OT onboard. Consults: GI - Dr. Osorio Nephro - Dr. Fletcher Pulmo - Dr. Farrar Surgery - Dr. Barrera Reviewed: CT abd/pelvis = chronic constipation with fecal impaction CXR = WNL GI bleed scan = WNL, no active bleed ECG = NSR, low voltage QRS limb leads, electrical artifact V 1,2 <Hannah Ramirez - Last Filed: 09/11/17 08:47> Objective - Vital Signs/Intake and Output Vital Signs (last 24 hours): Temp Pulse Resp BP Pulse Ox 98.1 F 68 18 114/62 96 09/10/17 10:00 09/10/17 10:00 09/10/17 10:00 09/10/17 10:00 09/10/17 10:00 - Labs Labs: 09/10/17 06:30 09/10/17 06:30 Assessment and Plan - Assessment and Plan (Free Text) Plan: 81 yr male w/ history of arthritis, DM II, CAD (stents x2), HTN, Hyperlipidemia, Hiatal hernia & L inguinal hernia w/ 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 Pt recently discharged from [facility] on 08/08/17 and re-admitted on 08/28/17 for rectal bleeding. Hgb dropped to 7.8 and is s/p 2 units of PRBC. Endoscopy revealed grade C esophageal ulcerations and gastroparesis. Colonscopy revealed rectal ulcerations. Fecal impaction noted again. Pt transferred to TCU on 09/02 for physical therapy. Today, pt seen at bedside reporting fatigue after completing PT. Denies any shortness of breath, chest pain, headache, fever, chills, diarrhea, constipation, paraesthesias, or urinary changes.pt is seen and examined at bed side , looking comfortable , agreed all above , will f/u
--- NOTE | 2017-09-09 02:00 | PN ---
DATE: 09/08/2017 PULMONARY PROGRESS NOTE REFERRING PHYSICIAN: Dr. Hannah Ramirez. SUBJECTIVE: He is lying in the bed, head at 45 degrees. Night was unremarkable. Doing well in therapy. Short of breath on exertion. No chest pain. No nausea. No vomiting. No diarrhea, leg pain, or leg swelling. OBJECTIVE: GENERAL: In no acute distress. VITAL SIGNS: Temperature is 98, heart rate is 84, respiratory rate is 20, blood pressure is 111/67, and pulse ox 97% on room air. HEENT: Moist mucous membranes. Small oral cavity. Crowded airway. NECK: Supple. No JVD. LUNGS: Have a few scattered rhonchi. HEART: S1 and S2. ABDOMEN: Soft, nontender. No organomegaly. EXTREMITIES: No edema. NEUROLOGIC: Awake and alert. Follows simple commands. LABORATORY DATA: Reviewed, noted. No new lab is available since yesterday. Urine culture was done which suggests multiple organisms. MEDICATIONS: He is on Ambien 5 mg at bedtime p.r.n., Ancef 1 g every 8 hours, Anusol every 8 hours, Cardura 4 mg daily, vitamin D 50,000 units weekly, DuoNeb every 6 hours p.r.n., potassium 10 mEq daily, Lipitor 20 mg daily, omega-3 1 g twice a day, MiraLax 17 g four times a day, Norvasc 10 mg daily, Periactin 4 mg three times a day, Protonix 40 mg twice a day, IV fluids normal saline 60 mL per hour, Synthroid 25 mcg twice a day, and multivitamins daily. IMPRESSION AND PLAN: Chronic obstructive lung disease, recurrent bowel obstructions, esophageal ulcer, gastroparesis, chronic constipation, rectal ulcer, gastrointestinal bleed requiring blood transfusion, coronary artery disease, hypertension, and hyperlipidemia. From a Pulmonary point of view, doing okay. Spoke to the nursing staff. Continue incentive spirometer. Out of bed to chair. Physical therapy. Follow up labs. Continue stool softener. Thank you and we will follow with you. Dakotah Farrar MD
[2017-09-09] MEDS: Sodium Chloride 0.9% 1,000 ML IV SCH ×2 (05:00→21:04)
[2017-09-09] MEDS: Levothyroxine 25 MCG TAB PO SCH ×2 (05:29→16:02)
[2017-09-09] MEDS: Pantoprazole 40 mg EC Tab PO SCH ×2 (05:29→16:02)
[2017-09-09 06:16] VITALS: RESP 18
[2017-09-09 07:07] LABS: ALB/GLOB RATIO 0.9 (1.1-1.8); ALBUMIN 2.8 g/dL (3.0-4.8); ALT/SGPT 20 U/L (7-56); AST/SGOT 36 U/L (17-59); BLOOD UREA NITROGEN 10 mg/dL (7-21); CALCIUM 8.9 mg/dL (8.4-10.5); GFR AFRICAN-AMERICAN > 60; GFR NON-AFRICAN AMERICAN > 60
[2017-09-09] MEDS: Multivitamin With Minerals Tab PO SCH (08:01)
[2017-09-09] MEDS: Hydrocortisone 2.5% Rectal Cream(30 gm) PR SCH ×3 (10:10→17:41)
[2017-09-09] MEDS: Potassium Chloride 10 mEq ER Tab PO SCH (10:12)
[2017-09-09] MEDS: Omega-3-Acid Ethyl Esters 1 GM Cap PO SCH ×2 (10:12→17:41)
[2017-09-09] MEDS: POLYETHYLENE GLYCOL 3350 17 GM/Dose PACKET PO SCH ×2 (10:12→17:42)
[2017-09-09 19:07] LABS: BASO # 0.04 K/mm3 (0.0-2.0); BASO % 0.7 % (0.0-3.0); EOS # 0.6 (0.0-0.7); EOS % 9.9 % (1.5-5.0); GRAN # 2.63 (1.4-6.5); GRAN % 43.4 % (50.0-68.0); HEMOGLOBIN 9.2 g/dL (14.0-18.0); LYMPH # 2.3 (1.2-3.4); LYMPH % 38.4 % (22.0-35.0); MEAN CELL VOLUME 89.4 fl (80.0-105.0); MEAN CORPUSCULAR HEMOGLOBIN 30.4 pg (25.0-35.0); MEAN CORPUSCULAR HGB CONC 33.9 g/dl (31.0-37.0); MEAN PLATELET VOLUME 7.8 fl (7.0-11.0); MONO # 0.5 (0.1-0.6); MONO % 7.6 % (1.0-6.0); RBC 3.03 10^6/uL (3.5-6.1); RED CELL DISTRIBUTION WIDTH 16.9 % (11.5-14.5); WHITE BLOOD COUNT 6.1 10^3/ul (4.5-11.0)
[2017-09-09 19:24] LABS: ALT/SGPT 22 U/L (7-56); AST/SGOT 30 U/L (17-59); BLOOD UREA NITROGEN 13 mg/dL (7-21); CALCIUM 9.2 mg/dL (8.4-10.5); GFR AFRICAN-AMERICAN > 60; GFR NON-AFRICAN AMERICAN > 60
--- NOTE | 2017-09-09 23:07 | PN ---
DATE: SUBJECTIVE: The patient was seen early this morning in room 302. No fevers and chills. PHYSICAL EXAMINATION: VITAL SIGNS: Temperature is 98, blood pressure is 113/50, respiratory rate of 18, heart rate of 79. HEENT: Unremarkable. NECK: Supple. LUNGS: Have decreased breath sounds. HEART: Normal S1, S2. ABDOMEN: Soft, nontender. LABORATORY EXAMINATION: Reveals a white count of 6.9, hemoglobin of 9, BUN of 10, creatinine of 0.8. Urinalysis is noted. ASSESSMENT AND PLAN: This is a 81-year-old with urinary tract infection with methicillin-sensitive Staphylococcus aureus, status post Douglas catheter placement and removal with coronary artery disease, hypertension, dyslipidemia, chronic obstructive lung disease, chronic back pain, arthritis, history of diverticulitis and on cefazolin. The patient has completed 7 days of cefazolin, now off of antibiotics. The patient is at risk for developing nosocomial infections. Jonathan Woods MD
--- NOTE | 2017-09-09 23:28 | PN ---
DATE: 09/09/2017 PULMONARY PROGRESS NOTE REFERRING PHYSICIAN: Hannah Ramirez MD. SUBJECTIVE: The patient is lying in the bed, head at 45 degrees. Night was unremarkable. Doing well in therapy. No headache. No rhinitis. No nausea. No vomiting or diarrhea. No leg pain or leg swelling. OBJECTIVE: GENERAL: In no acute distress. VITAL SIGNS: Temp is 98, heart rate is 79, respiratory rate is 20, blood pressure 113/57, pulse ox 97% on room air. HEENT: Moist mucous membrane. Crowded airway. NECK: Supple. No JVD. LUNGS: Have fair airflow with few rhonchi. HEART: S1, S2. ABDOMEN: Soft, nontender. No organomegaly. EXTREMITIES: No edema. NEUROLOGIC: Awake, alert. Follows simple command. MEDICATIONS: Show, Ambien 5 mg at bedtime p.r.n., Anusol p.r.n. basis, Cardura 4 mg daily, vitamin D 50,000 units weekly, Dulcolax 10 mg rectally daily, DuoNeb every 6 hours p.r.n., potassium 10 mEq daily, Lipitor 20 mg daily, Lovaza 1 g twice a day, MiraLax 17 g twice a day, Norvasc 10 mg daily, Periactin 4 mg three times a day, Protonix 40 mg twice a day, IV fluid normal saline 60 mL per hour, Synthroid 25 mcg twice a day and multivitamins daily. LABORATORY DATA: Shows hemoglobin 9.2, hematocrit 27.1, WBC 6.1, platelet count is 386. Sodium 138, potassium 3.7, chloride 103, bicarbonate 26, BUN 13, creatinine 0.8, glucose 108 and calcium is 9.2. Total bili 0.1, AST 30, ALT 22, alk phos is 49. Albumin is 3.0. IMPRESSION AND PLAN: Chronic obstructive lung disease, recurrent bowel obstruction with constipation, esophageal ulcers, gastroparesis, chronic constipation, rectal ulcer, gastrointestinal bleed requiring transfusion, coronary artery disease, hypertension and hyperlipidemia. Pulmonary point of view, doing well. Follow up CBC in the morning. Fall precaution. Bronchodilator. Continue stool softener. Continue therapy. Thank you and we will follow with you. Dakotah Farrar MD [facility] # [id number]
[2017-09-10] MEDS: Sodium Chloride 0.9% 1,000 ML IV SCH (05:36)
[2017-09-10] MEDS: Levothyroxine 25 MCG TAB PO SCH (05:37)
[2017-09-10] MEDS: Pantoprazole 40 mg EC Tab PO SCH (05:37)
[2017-09-10 06:56] LABS: HEMOGLOBIN 9.8 g/dL (14.0-18.0); MEAN CELL VOLUME 90.5 fl (80.0-105.0); MEAN CORPUSCULAR HEMOGLOBIN 30.2 pg (25.0-35.0); MEAN CORPUSCULAR HGB CONC 33.3 g/dl (31.0-37.0); MEAN PLATELET VOLUME 8.4 fl (7.0-11.0); RBC 3.25 10^6/uL (3.5-6.1); RED CELL DISTRIBUTION WIDTH 17.3 % (11.5-14.5); WHITE BLOOD COUNT 4.8 10^3/ul (4.5-11.0)
[2017-09-10 07:12] LABS: BLOOD UREA NITROGEN 10 mg/dL (7-21); CALCIUM 8.9 mg/dL (8.4-10.5); GFR AFRICAN-AMERICAN > 60; GFR NON-AFRICAN AMERICAN > 60
--- NOTE | 2017-09-10 08:25 | PN ---
DATE: 09/09/2017 SUBJECTIVE: The patient is a 81-year-old male. The patient was seen and examined at the bedside, looks lot better. No constipation or diarrhea. Going for bowel movement once a day. No fever. No chills. Feeling strong. PHYSICAL EXAMINATION: VITAL SIGNS: Temperature 98, blood pressure 113/50, respiratory rate 18, heart rate of 79. HEENT: Head: Normocephalic and atraumatic. Eyes: PERRLA. Extraocular muscles are intact. Conjunctivae are clear. Nose is patent. Mucous membranes are moist. NECK: Supple. No carotid bruit, JVD, or thyromegaly. CHEST: Bilaterally symmetrical. HEART: S1, S2 positive. LUNGS: Clear to auscultation. ABDOMEN: Soft. Bowel sounds are present. No organomegaly. EXTREMITIES: No edema. No cyanosis. NEUROLOGIC: The patient is awake and alert. Moving all 4 extremities. No focal deficits. LABORATORY DATA: wbc 6.9 and hemoglobin 9. BUN is 10 and creatinine 0.8. MEDICATIONS: Reviewed by me. ASSESSMENT AND PLAN: a 81-year-old male with urinary tract infection with methicillin-sensitive aureus, status post Douglas catheter, coronary artery bypass, hypertension, dyslipidemia, chronic back pain, arthritis, history of diverticulitis, We will continue cefazolin for cellulitis. The patient has completed 7 days of cefazolin. Gastrointestinal and deep venous thrombosis prophylaxis. Repeat labs. We will discharge the patient to home tomorrow. We will follow up. Hannah Ramirez MD [facility]ITAL[facility]
[2017-09-10] MEDS: Multivitamin With Minerals Tab PO SCH (09:00)
[2017-09-10] MEDS: Potassium Chloride 10 mEq ER Tab PO SCH (09:18)
[2017-09-10] MEDS: Omega-3-Acid Ethyl Esters 1 GM Cap PO SCH (09:19)
[2017-09-10] MEDS: POLYETHYLENE GLYCOL 3350 17 GM/Dose PACKET PO SCH (09:20)
[2017-09-10] MEDS: Hydrocortisone 2.5% Rectal Cream(30 gm) PR SCH (09:24)
[2017-09-10 11:12] VITALS: BP 114/62; PULSE 68; TEMP 98.1; O2SAT 96
[2017-09-10] MEDS ORDERED: Pneumococcal 23-Valent Vaccine IM ONE (12:14)
--- NOTE | 2017-09-10 13:16 | CP.PCM.PN ---
Subjective - Date & Time of Evaluation Date of Evaluation: 09/10/17 Time of Evaluation: 09:50 - Subjective Subjective: Seen and examined at the bedside earlier today, chart review. Patient is reported to have regular bowel movements no diarrhea. No reports of any overt GI bleed. Patient denies nausea, vomiting, or abdominal pain. Objective - Vital Signs/Intake and Output Vital Signs (last 24 hours): Temp Pulse Resp BP Pulse Ox 98.1 F 68 18 114/62 96 09/10/17 10:00 09/10/17 10:00 09/10/17 10:00 09/10/17 10:00 09/10/17 10:00 - Medications Medications: Current Medications Albuterol/Ipratropium (Duoneb 3 Mg/0.5 Mg (3 Ml) Ud) 3 ml IH [id number] PRN; Protocol PRN Reason: Shortness of Breath Amlodipine Besylate (Norvasc) 10 mg PO DAILY ZACK PRN Reason: Protocol Last Admin: 09/10/17 09:02 Dose: 10 mg Atorvastatin Calcium (Lipitor) 20 mg PO HS ZACK PRN Reason: Protocol Last Admin: 09/09/17 21:02 Dose: 20 mg Bisacodyl (Dulcolax) 10 mg RC DAILY ZACK PRN Reason: Protocol Last Admin: 09/10/17 09:02 Dose: 10 mg Cyproheptadine HCl (Periactin) 4 mg PO TID ZACK PRN Reason: Protocol Last Admin: 09/10/17 09:02 Dose: 4 mg Doxazosin Mesylate (Cardura) 4 mg PO DAILY ZACK PRN Reason: Protocol Last Admin: 09/10/17 09:18 Dose: 4 mg Ergocalciferol (Drisdol 50,000 Intl Units Cap) 1 cap PO Fr@1000 ZACK PRN Reason: Protocol Last Admin: 09/05/17 10:32 Dose: 1 cap Hydrocortisone (Anusol-Hc) 0 gm SC TID ZACK PRN Reason: Protocol Last Admin: 09/10/17 09:24 Dose: 1 applic Sodium Chloride (Sodium Chloride 0.9%) 1,000 mls @ 60 mls/hr IV .[id number] ZACK Last Admin: 09/10/17 05:36 Dose: 60 mls/hr Levothyroxine Sodium (Synthroid) 25 mcg PO 0600,1600 ZACK PRN Reason: Protocol Last Admin: 09/10/17 05:37 Dose: 25 mcg Multivitamins/Minerals (Therapeutic-M Tab) 1 tab PO 0800 ZACK PRN Reason: Protocol Last Admin: 09/10/17 09:00 Dose: 1 tab Yjlus-4-Kyvp Ethyl Esters (Lovaza) 1 gm PO BID [facility] Last Admin: 09/10/17 09:19 Dose: 1 gm Pantoprazole Sodium (Protonix Ec Tab) 40 mg PO 0600,1600 ZACK PRN Reason: Protocol Last Admin: 09/10/17 05:37 Dose: 40 mg Polyethylene Glycol (Miralax) 17 gm PO BID [facility] Last Admin: 09/10/17 09:20 Dose: 17 gm Potassium Chloride (Klor-Con 10) 10 meq PO DAILY [facility] Last Admin: 09/10/17 09:18 Dose: 10 meq Zolpidem Tartrate (Ambien) 5 mg PO HS PRN; Protocol PRN Reason: Insomnia - Labs Labs: 09/10/17 06:30 09/10/17 06:30 - Constitutional Appears: No Acute Distress - Head Exam Head Exam: NORMOCEPHALIC - Eye Exam Eye Exam: Normal appearance. absent: Scleral icterus - ENT Exam ENT Exam: Mucous Membranes Moist - Neck Exam Neck Exam: Normal Inspection - Respiratory Exam Respiratory Exam: NORMAL BREATHING PATTERN. absent: Respiratory Distress - Cardiovascular Exam Cardiovascular Exam: +S1, +S2 - GI/Abdominal Exam GI & Abdominal Exam: Soft, Normal Bowel Sounds. absent: Guarding, Tenderness, Rebound - Extremities Exam Extremities Exam: absent: Calf Tenderness - Neurological Exam Neurological Exam: Alert, Awake, Oriented x3 Assessment and Plan - Assessment and Plan (Free Text) Assessment: ASSESSMENT: S/P rectal bleeding secondary to resolving sterocolitis external hemorrhoids Esophageal Ulcer duodenal ulcer diverticulosis hx colon resection CAD s/p stent DM Hypothyroidism HTN urinary retention Plan: Puree diet monitor H/H and for overt GIB continue bowel regemine continue PPI plan for dc home today discuss w/ pateint and staff that dc home on laxative and monitor stools Seen and discussed w/ Dr. Zaidi.
--- NOTE | 2017-09-10 15:11 | CP.PCM.DIS ---
<WileyFiorella Jamee - Last Filed: 09/10/17 15:04> Provider - Provider Date of Admission: 09/02/17 21:21 Attending physician: Hannah Ramirez MD Primary care physician: Hannah Ramirez MD Consults: GI - Dr. Osorio Nephro - Dr. Justine Mccullough - Dr. Farrar Surgery - Dr. Barrera Time Spent in preparation of Discharge (in minutes): 40 Diagnosis - Discharge Diagnosis (1) UTI (urinary tract infection) Status: Acute (2) Urinary retention Status: Resolved (3) Abdominal pain Status: Acute (4) Anemia Status: Acute (5) Fecal impaction Status: Acute (6) GI bleed Status: Acute (7) Gastroparesis Status: Acute (8) History of blood transfusion Status: Acute (9) MRSA nasal colonization Status: Acute (10) EMILE (obstructive sleep apnea) Status: Acute (11) Stercoral ulcer of anus Status: Acute Hospital Course - Lab Results Lab Results: Micro Results 09/02/17 22:15 Urine,Clean Catch Urine Culture - Final 50-100,000 CFU/ML. MULTIPLE SPECIES. SUGGEST REPEAT SPECIMEN. Most Recent Lab Values WBC 4.8 10^3/ul (4.5-11.0) D 09/10/17 06:30 RBC 3.25 10^6/uL (3.5-6.1) L 09/10/17 06:30 Hgb 9.8 g/dL (14.0-18.0) L 09/10/17 06:30 Hct 29.4 % (42.0-52.0) L 09/10/17 06:30 MCV 90.5 fl (80.0-105.0) 09/10/17 06:30 MCH 30.2 pg (25.0-35.0) 09/10/17 06:30 MCHC 33.3 g/dl (31.0-37.0) 09/10/17 06:30 RDW 17.3 % (11.5-14.5) H 09/10/17 06:30 Plt Count 465 10^3/uL (120.0-450.0) H 09/10/17 06:30 MPV 8.4 fl (7.0-11.0) 09/10/17 06:30 Gran % 43.4 % (50.0-68.0) L 09/09/17 19:02 Lymph % (Auto) 38.4 % (22.0-35.0) H 09/09/17 19:02 [place] % (Auto) 7.6 % (1.0-6.0) H 09/09/17 19:02 Eos % (Auto) 9.9 % (1.5-5.0) H 09/09/17 19:02 Baso % (Auto) 0.7 % (0.0-3.0) 09/09/17 19:02 Gran # 2.63 (1.4-6.5) 09/09/17 19:02 Lymph # (Auto) 2.3 (1.2-3.4) 09/09/17 19:02 [place] # (Auto) 0.5 (0.1-0.6) 09/09/17 19:02 Eos # (Auto) 0.6 (0.0-0.7) 09/09/17 19:02 Baso # (Auto) 0.04 K/mm3 (0.0-2.0) 09/09/17 19:02 Sodium 141 mmol/L (132-148) 09/10/17 06:30 Potassium 3.7 mmol/L (3.6-5.0) 09/10/17 06:30 Chloride 104 mmol/L (98-107) 09/10/17 06:30 Carbon Dioxide 29 mmol/L (21-33) 09/10/17 06:30 Anion Gap 12 (10-20) 09/10/17 06:30 BUN 10 mg/dL (7-21) 09/10/17 06:30 Creatinine 0.8 mg/dl (0.8-1.5) 09/10/17 06:30 Est GFR ( Amer) > 60 09/10/17 06:30 Est GFR (Non-Af Amer) > 60 09/10/17 06:30 Random Glucose 103 mg/dL (70-110) 09/10/17 06:30 Calcium 8.9 mg/dL (8.4-10.5) 09/10/17 06:30 Total Bilirubin 0.1 mg/dL (0.2-1.3) L 03/27/18 19:02 AST 30 U/L (17-59) 09/09/17 19:02 ALT 22 U/L (7-56) 09/09/17 19:02 Alkaline Phosphatase 49 U/L (38-126) 09/09/17 19:02 Total Protein 6.2 g/dL (5.8-8.3) 09/09/17 19:02 Albumin 3.0 g/dL (3.0-4.8) 09/09/17 19:02 Globulin 3.2 gm/dL 09/09/17 19:02 Albumin/Globulin Ratio 1.0 (1.1-1.8) L 09/09/17 19:02 Urine Color Yellow (YELLOW) 09/02/17 22:15 Urine Appearance Clear (CLEAR) 09/02/17 22:15 Urine pH 6.5 (4.7-8.0) 09/02/17 22:15 Ur Specific [place] 1.010 (1.005-1.035) 09/02/17 22:15 Urine Protein Negative mg/dL (<30 mg/dL) 09/02/17 22:15 Urine Glucose (UA) Negative mg/dL (NEGATIVE) 09/02/17 22:15 Urine Ketones Negative mg/dL (NEGATIVE) 09/02/17 22:15 Urine Blood Negative (NEGATIVE) 09/02/17 22:15 Urine Nitrate Positive (NEGATIVE) H 09/02/17 22:15 Urine Bilirubin Negative (NEGATIVE) 09/02/17 22:15 Urine Urobilinogen 0.2 E.U./dL (<1 E.U./dL) 09/02/17 22:15 Ur Leukocyte Esterase Moderate Farrukh/uL (NEGATIVE) H 09/02/17 22:15 Urine RBC 0 - 2 /hpf (0-2) 09/02/17 22:15 Urine WBC 15 - 20 /hpf (0-6) 09/02/17 22:15 Ur Epithelial Cells None /hpf (0-5) 09/02/17 22:15 Amorphous Sediment Few 09/02/17 22:15 Urine Bacteria Mod (NEG) 09/02/17 22:15 - Hospital Course Hospital Course: 81 yr male w/ history of arthritis, DM II, CAD (stents x2), HTN, Hyperlipidemia, Hiatal hernia & L inguinal hernia w/ 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 Pt recently discharged from [facility] on 08/08/17 and re-admitted on 08/28/17 for rectal bleeding. Hgb dropped to 7.8 and is s/p 2 units of PRBC. Endoscopy revealed grade C esophageal ulcerations and gastroparesis. Colonscopy revealed rectal ulcerations. Fecal impaction noted again. Pt transferred to TCU on 09/02 for physical therapy. Pt recieved IVF hydration. Pt was treated for UTI and urinary retention with IV cefalozin antibiotics. Topical Bactroban treatment for (+) MRSA nares. Pt is cleared for discharge home with orders to follow strict bowel regimen to prevent constipation. Pt, his daughter, and grandson made aware of plan of care and verbalized understanding. Reviewed: CT abd/pelvis = chronic constipation with fecal impaction CXR = WNL GI bleed scan = WNL, no active bleed ECG = NSR, low voltage QRS limb leads, electrical artifact V 1,2 - Date & Time of H&P Date of H&P: 09/10/17 Time of H&P: 11:30 Discharge Exam - Head Exam Head Exam: NORMOCEPHALIC - Eye Exam Eye Exam: Normal appearance - ENT Exam ENT Exam: Mucous Membranes Moist - Neck Exam Neck exam: Full Rom - Respiratory Exam Respiratory Exam: Clear to PA & Lateral, NORMAL BREATHING PATTERN, UNREMARKABLE - Cardiovascular Exam Cardiovascular Exam: REGULAR RHYTHM, +S1, +S2 - GI/Abdominal Exam GI & Abdominal Exam: Hernia, Normal Bowel Sounds, Soft, Unremarkable - Extremities Exam Extremities exam: full ROM, normal inspection - Back Exam Back exam: NORMAL INSPECTION - Neurological Exam Neurological exam: Alert, CN II-XII Intact, Normal Gait, Oriented x3 - Psychiatric Exam Psychiatric exam: Normal Affect, Normal Mood - Skin Skin Exam: Dry, Intact, Normal Color, Warm Discharge Plan - Follow Up Plan Condition: GOOD Disposition: HOME/ ROUTINE Instructions: Preventing Falls in the Older Adult, High Blood Pressure (DC), Gastrointestinal Bleeding (DC), Anemia of Chronic Disease (DC), Coronary Heart Disease (DC), Urinary Tract Infection in Women (DC), Urinary Tract Infection in Men (DC), Acute Abdominal Pain (DC), Acute Abdominal Pain (GEN), Dysuria (GEN) Referrals: Hannah Ramirez MD [Primary Care Provider] - <Hannah Ramirez - Last Filed: 09/11/17 09:11> Provider - Provider Date of Admission: 09/02/17 21:21 Attending physician: Hannah Ramirez MD Primary care physician: Hannah Ramirez MD Hospital Course - Lab Results Lab Results: Micro Results 09/02/17 22:15 Urine,Clean Catch Urine Culture - Final 50-100,000 CFU/ML. MULTIPLE SPECIES. SUGGEST REPEAT SPECIMEN. Most Recent Lab Values WBC 4.8 10^3/ul (4.5-11.0) D 09/10/17 06:30 RBC 3.25 10^6/uL (3.5-6.1) L 09/10/17 06:30 Hgb 9.8 g/dL (14.0-18.0) L 09/10/17 06:30 Hct 29.4 % (42.0-52.0) L 09/10/17 06:30 MCV 90.5 fl (80.0-105.0) 09/10/17 06:30 MCH 30.2 pg (25.0-35.0) 09/10/17 06:30 MCHC 33.3 g/dl (31.0-37.0) 09/10/17 06:30 RDW 17.3 % (11.5-14.5) H 09/10/17 06:30 Plt Count 465 10^3/uL (120.0-450.0) H 09/10/17 06:30 MPV 8.4 fl (7.0-11.0) 09/10/17 06:30 Gran % 43.4 % (50.0-68.0) L 09/09/17 19:02 Lymph % (Auto) 38.4 % (22.0-35.0) H 09/09/17 19:02 [place] % (Auto) 7.6 % (1.0-6.0) H 09/09/17 19:02 Eos % (Auto) 9.9 % (1.5-5.0) H 09/09/17 19:02 Baso % (Auto) 0.7 % (0.0-3.0) 09/09/17 19:02 Gran # 2.63 (1.4-6.5) 09/09/17 19:02 Lymph # (Auto) 2.3 (1.2-3.4) 09/09/17 19:02 [place] # (Auto) 0.5 (0.1-0.6) 09/09/17 19:02 Eos # (Auto) 0.6 (0.0-0.7) 09/09/17 19:02 Baso # (Auto) 0.04 K/mm3 (0.0-2.0) 09/09/17 19:02 Sodium 141 mmol/L (132-148) 09/10/17 06:30 Potassium 3.7 mmol/L (3.6-5.0) 09/10/17 06:30 Chloride 104 mmol/L (98-107) 09/10/17 06:30 Carbon Dioxide 29 mmol/L (21-33) 09/10/17 06:30 Anion Gap 12 (10-20) 09/10/17 06:30 BUN 10 mg/dL (7-21) 09/10/17 06:30 Creatinine 0.8 mg/dl (0.8-1.5) 09/10/17 06:30 Est GFR ( Amer) > 60 09/10/17 06:30 Est GFR (Non-Af Amer) > 60 09/10/17 06:30 Random Glucose 103 mg/dL (70-110) 09/10/17 06:30 Calcium 8.9 mg/dL (8.4-10.5) 09/10/17 06:30 Total Bilirubin 0.1 mg/dL (0.2-1.3) L 09/09/17 19:02 AST 30 U/L (17-59) 09/09/17 19:02 ALT 22 U/L (7-56) 09/09/17 19:02 Alkaline Phosphatase 49 U/L (38-126) 09/09/17 19:02 Total Protein 6.2 g/dL (5.8-8.3) 09/09/17 19:02 Albumin 3.0 g/dL (3.0-4.8) 09/09/17 19:02 Globulin 3.2 gm/dL 09/09/17 19:02 Albumin/Globulin Ratio 1.0 (1.1-1.8) L 09/09/17 19:02 Urine Color Yellow (YELLOW) 09/02/17 22:15 Urine Appearance Clear (CLEAR) 09/02/17 22:15 Urine pH 6.5 (4.7-8.0) 09/02/17 22:15 Ur Specific [place] 1.010 (1.005-1.035) 09/02/17 22:15 Urine Protein Negative mg/dL (<30 mg/dL) 09/02/17 22:15 Urine Glucose (UA) Negative mg/dL (NEGATIVE) 09/02/17 22:15 Urine Ketones Negative mg/dL (NEGATIVE) 09/02/17 22:15 Urine Blood Negative (NEGATIVE) 09/02/17 22:15 Urine Nitrate Positive (NEGATIVE) H 09/02/17 22:15 Urine Bilirubin Negative (NEGATIVE) 09/02/17 22:15 Urine Urobilinogen 0.2 E.U./dL (<1 E.U./dL) 09/02/17 22:15 Ur Leukocyte Esterase Moderate Farrukh/uL (NEGATIVE) H 09/02/17 22:15 Urine RBC 0 - 2 /hpf (0-2) 09/02/17 22:15 Urine WBC 15 - 20 /hpf (0-6) 09/02/17 22:15 Ur Epithelial Cells None /hpf (0-5) 09/02/17 22:15 Amorphous Sediment Few 09/02/17 22:15 Urine Bacteria Mod (NEG) 09/02/17 22:15 - Hospital Course Hospital Course: pt is seen and examined at bed side , agreed all above , chart . meds and labs noted , will f/u . d/d with pt , daughter . employee relations director and staff . arrangement done to see brother before going home , will f/u as out pt
--- NOTE | 2017-09-10 16:29 | PN ---
DATE: 09/10/2017 SUBJECTIVE: The patient is in bed, in no acute distress, nontoxic. No fevers and no chills. PHYSICAL EXAMINATION: HEENT: Examination of HEENT is unremarkable. NECK: Supple. LUNGS: Have decreased breath sounds. HEART: Normal S1 and S2. ABDOMEN: Soft, nontender. LABORATORY DATA: Laboratory examination reveals a white count of 4.8, hemoglobin of 9 and platelets of 465. Chemistries reveal BUN of 10, creatinine of 0.8. Microbiology is noted. ASSESSMENT AND PLAN: A 81-year-old male with urinary tract infections. Methicillin-resistant Staphylococcus aureus, status post Douglas catheter placement and removal, coronary artery disease, hypertension, dyslipidemia, chronic obstructive lung disease, chronic back pain, arthritis and history of diverticulitis, on cefazolin, completed that treatment. The patient was seen early this morning for possible discharge. Jonathan Woods MD
== END 2017-09-10 13:41 | disposition home or self-care (01) | DRG 689 ==
LOC: TRCU 21:21
PROVIDERS: ADMIT Internal Medicine; ATTEND Internal Medicine
PROC: F07Z9FZ Gait Training/Functional Ambulation Treatment using Assistive, Adaptive, Supportive or Protective Equipment (ICD-10-PCS; principal; 2017-09-03)
PROC: F07M6ZZ Therapeutic Exercise Treatment of Musculoskeletal System - Whole Body (ICD-10-PCS; 2017-09-03)
PROC: F08Z1ZZ Dressing Techniques Treatment (ICD-10-PCS; 2017-09-03)
PROC: F08Z2ZZ Grooming/Personal Hygiene Treatment (ICD-10-PCS; 2017-09-03)
PROC: F08Z0ZZ Bathing/Showering Techniques Treatment (ICD-10-PCS; 2017-09-03)
PROC: F08Z4ZZ Home Management Treatment (ICD-10-PCS; 2017-09-03)
PROC: 3E0234Z Introduction of Serum, Toxoid and Vaccine into Muscle, Percutaneous Approach (ICD-10-PCS; 2017-09-10)
DX: N39.0 Urinary tract infection, site not specified (principal); K25.4 Chronic or unspecified gastric ulcer with hemorrhage; K62.6 Ulcer of anus and rectum; K22.10 Ulcer of esophagus without bleeding; D64.9 Anemia, unspecified; E03.9 Hypothyroidism, unspecified; E11.43 Type 2 diabetes mellitus with diabetic autonomic (poly)neuropathy; K31.84 Gastroparesis; K56.41 Fecal impaction; E78.5 Hyperlipidemia, unspecified; E83.51 Hypocalcemia; E87.6 Hypokalemia; G47.33 Obstructive sleep apnea (adult) (pediatric); G89.29 Other chronic pain; I10 Essential (primary) hypertension; I25.10 Atherosclerotic heart disease of native coronary artery without angina pectoris; J44.9 Chronic obstructive pulmonary disease, unspecified; K26.9 Duodenal ulcer, unspecified as acute or chronic, without hemorrhage or perforation; K57.30 Diverticulosis of large intestine without perforation or abscess without bleeding; M19.90 Unspecified osteoarthritis, unspecified site; N32.0 Bladder-neck obstruction; Z22.322 Carrier or suspected carrier of Methicillin resistant Staphylococcus aureus; Z87.891 Personal history of nicotine dependence; Z90.49 Acquired absence of other specified parts of digestive tract; Z95.1 Presence of aortocoronary bypass graft; Z95.5 Presence of coronary angioplasty implant and graft; Z23 Encounter for immunization

== ENCOUNTER 2017-09-29 15:44 | Inpatient (IN) | payer OTHER, MEDICAID ==
[2017-09-29] MEDS: Sodium Chloride 0.9% 1,000 ML IV SCH (18:04)
[2017-09-29] MEDS: POLYETHYLENE GLYCOL 3350 17 GM/Dose PACKET PO SCH (18:05)
[2017-09-29 18:50] VITALS: BMI 16.2
[2017-09-29] MEDS ORDERED: Pneumococcal 23-Valent Vaccine IM ONE (18:50)
[2017-09-29] MEDS: Acyclovir 500 MG in Sodium Chloride 0.9% 100 ML IV SCH (22:09)
[2017-09-30] MEDS: Sodium Chloride 0.9% 1,000 ML IV SCH ×3 (04:28→13:59)
[2017-09-30] MEDS: Acyclovir 500 MG in Sodium Chloride 0.9% 100 ML IV SCH ×2 (05:07→13:54)
[2017-09-30] MEDS: Levothyroxine 25 MCG TAB PO SCH (05:33)
[2017-09-30] MEDS ORDERED: FOLIC ACID PO SCH (10:00)
[2017-09-30] MEDS ORDERED: MULTIVIT IRON MIN PO SCH (10:00)
[2017-09-30] MEDS ORDERED: [UNRECOGNIZED DRUG - OTHER] PO SCH (10:00)
--- NOTE | 2017-09-30 10:12 | CP.PCM.PCO ---
Physician Communication Note - Physician Communication Note Physician Communication Note: Rectal Ulcer/[id number]: NO Surgery Recommended
[2017-09-30] MEDS: POLYETHYLENE GLYCOL 3350 17 GM/Dose PACKET PO SCH ×2 (10:19→17:00)
[2017-10-01] MEDS: Levothyroxine 25 MCG TAB PO SCH (05:43)
--- NOTE | 2017-10-01 06:05 | CON ---
DATE: 09/30/2017 LOCATION: Patient was seen earlier this morning in room 304. CHIEF COMPLAINT: Weakness. HISTORY OF PRESENT ILLNESS: This is a 81-year-old male with history of coronary artery disease, hypertension, dyslipidemia, chronic obstructive lung disease, chronic back pain, history of diverticulosis and history of community-acquired pneumonia, history of left inguinal abscess and colocutaneous fistula who is in the acute care with diagnosis of herpes zoster, clinically treated, now transferred to Transitional Care. REVIEW OF SYSTEMS: A 12-point review of systems performed. Review of systems revels no fevers, no chills. No nausea, vomiting. No chest pain, abdominal pain, diarrhea or constipation. No bright red blood per rectum. No melena. PAST MEDICAL HISTORY: Significant for coronary artery disease, hypertension, dyslipidemia, COPD, chronic back pain, diverticulosis, community-acquired pneumonia, left inguinal abscess, colocutaneous fistula. PAST SURGICAL HISTORY: Significant for incision and drainage of the abscess with mesh removal, sigmoid resection. ALLERGIES: PATIENT HAS NO KNOWN ALLERGIES. MEDICATIONS: Reviewed. PHYSICAL EXAMINATION: VITAL SIGNS: The patient's temperature is 98, heart rate is 71, respiratory rate of 16, blood pressure is . HEENT: Unremarkable. NECK: Supple. LUNGS: Decreased breath sounds. HEART: Normal S1 and S2. ABDOMEN: Soft, nontender. No rebound or guarding. No masses. SKIN: Examination of rash reveals dry rash, which is improved. No evidence of any active lesions at this point. LABORATORY DATA: Revels white count of 6.7, hemoglobin of 10, platelets of 258. BUN of 12, creatinine of 0.7 and procalcitonin is noted and stool for occult blood is noted. 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 acyclovir to the complete the 7 days, today is day #6 of 7. Jonathan Woods MD
[2017-10-01] MEDS: POLYETHYLENE GLYCOL 3350 17 GM/Dose PACKET PO SCH ×2 (10:18→17:19)
--- NOTE | 2017-10-01 12:05 | HP ---
DATE OF EXAM: 09/30/2017 The patient is a 81-year-old male. Patient was seen and examined on 09/30/2017. CHIEF COMPLAINT: Fatigue and tired. HISTORY OF PRESENT ILLNESS: Mr. Gabriela Page is a 81-year-old male, was admitted in [facility] on 09/24/2017, discharged to TCU on 09/29/2017. Chief complaint was nausea, vomiting and fatigue at that time. Mr. Gabriela Page is a 81-year-old male with past history of coronary artery disease, hypertension, dyslipidemia, COPD, history of diverticulosis, status post community-acquired pneumonia, history of constipation, was admitted on 09/24/2017, has zoster, was on isolation, got treatment. ID was on the case. Now zoster rash dried up. Transferred the patient to TCU for further treatment and for physical therapy for deconditioning. PAST MEDICAL HISTORY: Hypertension, hypercholesterolemia, COPD, dizziness, cataract surgery, diabetes mellitus, hypothyroidism, sepsis, blood transfusion. REVIEW OF SYSTEMS: The patient was seen and examined at the bedside in TCU on 09/30/2017, looking comfortable. Getting physical therapy. No nausea, vomiting or diarrhea. No hematuria or hematochezia. No swelling of the leg. No chest pain. No palpitation. No headache or dizziness. PHYSICAL EXAMINATION: VITAL SIGNS: Temperature 98.2, pulse 75, blood pressure 120/80 , respiratory rate 20. HEENT: Head: Normocephalic and atraumatic. Eyes: PERRLA. Extraocular muscles intact. Conjunctivae clear. Nose patent. Mucous membranes moist. NECK: Supple. No carotid bruit. No JVD or thyromegaly. CHEST: Bilaterally symmetrical. HEART: S1, S2 positive. LUNGS: Clear to auscultation. ABDOMEN: Soft. Bowel sounds present. No organomegaly. EXTREMITIES: No edema. No cyanosis. NEUROLOGICAL: Patient is awake and alert. Moving all 4 extremities. No focal deficit. MEDICATIONS: Ambien, vitamin D, bisacodyl, Lipitor, MiraLax, multivitamins, Neurontin, famotidine, cyproheptadine, Synthroid, Zovirax. LABORATORY DATA: We do not have recent lab today, but I reviewed old labs. ASSESSMENT AND PLAN: Mr. Gabriela Page is a 81-year-old male with multiple medical problems, now came with zoster, got treatment. ID is on the case, hypokalemia replaced, renal insufficiency, diabetes mellitus, proteinuria. Blood cultures are negative. Getting acyclovir, day 6 of the 7, rash is better. Patient has partial ileus, history of small bowel obstruction. Getting better. Getting physical therapy. Continuity of care. Gastrointestinal and deep venous thrombosis prophylaxis. We will follow up. Hannah Ramirez MD MTDD
--- NOTE | 2017-10-02 02:24 | PN ---
DATE: 10/01/2017 SUBJECTIVE: Patient seen early this morning, in no acute distress, nontoxic. No fevers. Doing well. He is complaining of weakness. PHYSICAL EXAMINATION: VITAL SIGNS: Temperature is 98, blood pressure is 120/70, respiratory rate of 16. HEENT: Unremarkable. NECK: Supple. LUNGS: Have decreased breath sounds. HEART: Normal S1 and S2. ABDOMEN: Soft and nontender. LABORATORY EXAMINATION: Reviewed. ASSESSMENT AND PLAN: This is a 81-year-old male with a history of coronary artery disease, hypertension, dyslipidemia, chronic obstructive lung disease, chronic back pain, history of diverticulosis, and community-acquired pneumonia with sepsis in the past. On this admission, he was seen in room 304 with herpes zoster. Today is day #7 of acyclovir. We will discontinue the acyclovir after today's last dose. The lesions are dried. Jonathan Woods MD
[2017-10-02] MEDS: Levothyroxine 25 MCG TAB PO SCH (05:32)
[2017-10-02 07:17] LABS: HEMOGLOBIN 9.6 g/dL (14.0-18.0); MEAN CELL VOLUME 91.8 fl (80.0-105.0); MEAN CORPUSCULAR HEMOGLOBIN 31.4 pg (25.0-35.0); MEAN CORPUSCULAR HGB CONC 34.2 g/dl (31.0-37.0); MEAN PLATELET VOLUME 8.7 fl (7.0-11.0); RBC 3.06 10^6/uL (3.5-6.1); RED CELL DISTRIBUTION WIDTH 16.6 % (11.5-14.5); WHITE BLOOD COUNT 6.9 10^3/ul (4.5-11.0)
[2017-10-02 07:36] LABS: BLOOD UREA NITROGEN 12 mg/dL (7-21); CALCIUM 8.3 mg/dL (8.4-10.5); GFR AFRICAN-AMERICAN > 60; GFR NON-AFRICAN AMERICAN > 60
[2017-10-02] MEDS: POLYETHYLENE GLYCOL 3350 17 GM/Dose PACKET PO SCH ×2 (10:44→18:13)
--- NOTE | 2017-10-02 13:55 | PN ---
DATE: 10/01/2017 SUBJECTIVE: The patient is a 81-year-old male. The patient is seen and examined at the bedside. Patient looks comfortable. No nausea, vomiting, or diarrhea. No hematuria, no hematochezia. No swelling of the leg. No chest pain, no palpitation. Having bowel movement everyday. Doing physical therapy. Appetite is improving. PHYSICAL EXAMINATION: VITAL SIGNS: Temperature is 98.1, pulse 78, blood pressure 165/81, respiratory rate 18. HEENT: Head is normocephalic, atraumatic. Eyes, PERRLA. Extraocular muscles are intact. Conjunctivae clear. Nose is patent. Mucous membranes moist. NECK: Supple. No carotid bruit. No JVD or thyromegaly. CHEST: Bilaterally symmetrical. HEART: S1 and S2 positive. LUNGS: Clear to auscultation. ABDOMEN: Soft. Bowel sounds present. No organomegaly. EXTREMITIES: No edema. No cyanosis. NEUROLOGIC: Patient is awake and alert. Moving all four extremities. No focal deficits. MEDICATIONS: Ambien, vitamin D, Dulcolax, Lipitor, MiraLax, multivitamins, Neurontin, Pepcid, Periactin, Synthroid. LABORATORY DATA: We do not have labs. Today, sugar is 137, 131, 109. ASSESSMENT AND PLAN: Mr. Kaylee Ochoa is 81 years old male, well known to me from multiple hospitalizations in my office, my private patient, has history of coronary artery disease, hypertension, dyslipidemia, chronic obstructive lung disease, chronic back pain, history of diverticulosis, community-acquired pneumonia, came with a sepsis in the past. At this time, he came in with herpes zoster, getting acyclovir. Dr. Woods discontinued acyclovir after completing the course of 7 days. History of small bowel obstruction, chronic constipation. Zoster lesions are dried. Patient is getting physical therapy. Appetite is improving. We will continue present treatment. Repeat labs. Hannah Ramirez MD
--- NOTE | 2017-10-02 20:53 | PN ---
DATE: 10/02/2017 SUBJECTIVE: The patient is in bed, in no acute distress, nontoxic, was seen early this morning in room 304. PHYSICAL EXAMINATION: VITAL SIGNS: Temperature is 98, blood pressure is 150/70, respiratory rate of 18, heart rate of 70. HEENT: Unremarkable. NECK: Supple. LUNGS: Have decreased breath sounds. HEART: Normal S1, S2. ABDOMEN: Soft, nontender. LABORATORY DATA: Reveals a white count of 6.9, hemoglobin of 9, platelets of 318. Chemistries reveal a BUN of 12, creatinine of 0.8 and microbiology is noted. ASSESSMENT AND PLAN: This is a 81-year-old male seen early this morning in room 304 with a history of coronary artery disease, hypertension, dyslipidemia, chronic obstructive lung disease, chronic back pain, diverticulosis, community-acquired pneumonia, sepsis in the past, herpes zoster. Completed acyclovir therapy. The lesions are at this point completely dry and no evidence of active infection and off of antibiotics and off of acyclovir. We will follow with you. The patient is at risk for developing nosocomial infections. Jonathan Woods MD
[2017-10-03] MEDS: Levothyroxine 25 MCG TAB PO SCH (05:48)
[2017-10-03] MEDS ORDERED: Ergocalciferol 50,000 Intl Units Cap PO SCH (10:00)
--- NOTE | 2017-10-03 10:51 | PN ---
DATE: 10/02/2017 SUBJECTIVE: The patient is a 81-year-old male. The patient was seen and examined on the bedside on 10/02/2017, looking comfortable. Did physical therapy, had bowel movement. Appetite is getting better. No fever. No chills. No nausea, vomiting, diarrhea. No hematuria, hematochezia. No swelling of the legs. No chest pain or palpitation. PHYSICAL EXAMINATION: VITAL SIGNS: Temperature 98, blood pressure 150/90, respiratory rate 18, heart rate 70. HEENT: Head normocephalic, atraumatic. Eyes PERRLA. Extraocular muscles intact. Conjunctivae clear. Nose patent. Mucous membrane moist. NECK: Supple. No carotid bruit. No JVD or thyromegaly. CHEST: Bilaterally symmetrical. HEART: S1 and S2 positive. LUNGS: Clear to auscultation. ABDOMEN: Soft. Bowel sounds positive. No organomegaly. EXTREMITIES: No edema. No cyanosis. NEUROLOGICAL: The patient is awake and alert. Moving all 4 extremities. No focal deficits. LABORATORY DATA: White blood cells 6.9, hemoglobin 9, platelets 318. BUN 12, creatinine 0.8. MEDICATIONS: Reviewed by me. ASSESSMENT AND PLAN: Mr. Gabriela Page, a 73-year-old male with multiple medical problems, multiple hospitalization. Has coronary artery disease, hypertension, dyslipidemia, chronic obstructive lung disease, chronic back pain, diverticulosis, history of community acquired pneumonia, sepsis in the past, history of herpes zoster. Completed 7 days of acyclovir. Now rash got dry. The patient is not more infectious. Off the antibiotics and off the acyclovir. Getting physical therapy. Gastrointestinal and deep venous thrombosis prophylaxis. Out of bed. Repeat labs. We will follow. Hannah Ramirez MD
[2017-10-03] MEDS: POLYETHYLENE GLYCOL 3350 17 GM/Dose PACKET PO SCH ×2 (11:15→17:37)
--- NOTE | 2017-10-03 18:51 | CP.PCM.PN ---
Subjective - Date & Time of Evaluation Date of Evaluation: 10/03/17 Time of Evaluation: 12:00 - Subjective Subjective: Going about his physical therapy well, no fevers, no diarrhea, improved abdominal pain. Objective - Vital Signs/Intake and Output Vital Signs (last 24 hours): Temp Pulse Resp BP Pulse Ox 98.1 F 70 18 154/74 H 98 10/02/17 16:58 10/02/17 16:58 10/02/17 16:58 10/02/17 16:58 10/02/17 16:58 - Medications Medications: Current Medications Atorvastatin Calcium (Lipitor) 40 mg PO DAILY [facility] Last Admin: 10/02/17 10:44 Dose: 40 mg Bisacodyl (Dulcolax) 5 mg RC DAILY [facility] Last Admin: 10/02/17 10:43 Dose: 5 mg Cyproheptadine HCl (Periactin) 4 mg PO TID [facility] Last Admin: 10/02/17 18:13 Dose: 4 mg Ergocalciferol (Drisdol 50,000 Intl Units Cap) 1 cap PO Fr@1000 [facility] Famotidine (Pepcid) 20 mg PO Q12 [facility] Last Admin: 10/02/17 21:40 Dose: 20 mg Gabapentin (Neurontin) 100 mg PO TID [facility] PRN Reason: Protocol Last Admin: 10/02/17 18:13 Dose: 100 mg Levothyroxine Sodium (Synthroid) 25 mcg PO 0630 [facility] Last Admin: 10/02/17 05:32 Dose: 25 mcg Non-Formulary Medication (Multivit,Iron,Min 5/Folic Acid [Strovite Forte Caplet] ) 1 each PO DAILY [facility] Polyethylene Glycol (Miralax) 17 gm PO BID [facility] Last Admin: 10/02/17 18:13 Dose: 17 gm Zolpidem Tartrate (Ambien) 5 mg PO HS PRN; Protocol PRN Reason: Insomnia - Labs Labs: 10/02/17 06:00 10/02/17 06:00 - Constitutional Appears: Non-toxic, Cachectic, Chronically Ill - Head Exam Head Exam: NORMAL INSPECTION - Respiratory Exam Respiratory Exam: Decreased Breath Sounds - Cardiovascular Exam Cardiovascular Exam: +S1, +S2 - GI/Abdominal Exam GI & Abdominal Exam: Soft. absent: Tenderness Assessment and Plan - Assessment and Plan (Free Text) Plan: Assessment Herpes zoster, clinically improved and S/P treatment consider ileus R/O partial small bowel obstruction history of UTI with methicillin-sensitive Staph aureus S/P torres catheter placement and removal S/P community-acquired pneumonia history of sepsis probably due to left inguinal abscess with colocutaneous fistula (from descending colon) associated with an infected inguinal mesh, S/P I and D, S/P sigmoid resection and removal of foreign body CAD HTN dyslipidemia COPD chronic back pain arthritis history of diverticulosis Plan continue to monitor off antibiotics and antivirals since he is at risk for hospital-acquired infections
--- NOTE | 2017-10-03 20:43 | CP.PCM.PCO ---
Physician Communication Note - Physician Communication Note Physician Communication Note: +BM without blood/Severe malnutrition noted
[2017-10-04] MEDS: Levothyroxine 25 MCG TAB PO SCH (05:49)
[2017-10-04] MEDS: Multivitamin Therapeutic Tab PO SCH (08:44)
[2017-10-04] MEDS: POLYETHYLENE GLYCOL 3350 17 GM/Dose PACKET PO SCH ×2 (09:32→17:26)
--- NOTE | 2017-10-04 09:51 | PN ---
DATE: 10/03/2017 SUBJECTIVE: The patient was seen and examined on 10/03/2017 late evening, looking comfortable. No nausea, vomiting, diarrhea. No hematuria or hematochezia. No swelling of the legs. No chest pain. No palpitation. No fever. No chills. Getting physical therapy. Having bowel movement. PHYSICAL EXAMINATION: VITAL SIGNS: Temperature 98.1, pulse 70, respiratory rate 18, blood pressure 154/74, pulse oximetry 98. HEENT: Head normocephalic, atraumatic. Eyes PERRLA. Extraocular muscles are intact. Conjunctivae clear. Nose patent. Mucous membrane moist. NECK: Supple. No carotid bruit. No JVD or thyromegaly. CHEST: Bilaterally symmetrical. HEART: S1 and S2 positive. LUNGS: Clear to auscultation. ABDOMEN: Soft. Bowel sounds positive. No organomegaly. EXTREMITIES: No edema. No cyanosis. NEUROLOGICAL: The patient is awake and alert. Moving all 4 extremities. No focal deficits. LABORATORY DATA: White blood cells 6.9, hemoglobin 9.6, hematocrit 28.1, platelet 318. Sodium 139, potassium 3, Bun 12, creatinine 0.8, glucose 115. MEDICATIONS: Lipitor, Dulcolax, Periactin, vitamin D, Pepcid, Neurontin, levothyroxine, multivitamins, MiraLax, Ambien. ASSESSMENT AND PLAN: Mr. Gabriela Page, 81-year-old male with anemia, hypokalemia, hyperglycemia. Came with herpes zoster, clinically improved with acyclovir treatment, now lesion is dry, but getting postherpetic neuralgia, history of ileus, rule out partial small bowel obstruction. Now, he is doing bowel movement. According to Dr. Rodriguez, no need of surgery. History of urinary tract infection with methicillin-susceptible Staphylococcus aureus, has Douglas catheter placement and removal of the Douglas catheter. Has community-acquired pneumonia, history of sepsis, coronary artery disease, hypertension, dyslipidemia, chronic obstructive pulmonary disease, chronic back pain, arthritis, history of diverticulosis. The patient is off the antibiotics and antiviral since he is at risk of hospital-acquired infection, but he is getting physical therapy, deconditioned, improving. We will follow up. I appreciated Dr. Maurice Duarte's input. I appreciated Dr. Michael Rodriguez . Hannah Ramirez MD [facility] # [id number] MTDGini
--- NOTE | 2017-10-04 18:23 | PN ---
DATE: 10/04/2017 SUBJECTIVE: Patient is in bed, in no acute distress, nontoxic. PHYSICAL EXAMINATION: VITAL SIGNS: Temperature is 98, blood pressure is 130/70, respiratory rate 16. HEENT: Unremarkable. NECK: Supple. LUNGS: Decreased breath sounds. HEART: Normal S1, S2. ABDOMEN: Soft, nontender. LABORATORY EXAMINATION: White count of 6.9. Chemistry revealed BUN of 12, creatinine of 0.8. ASSESSMENT AND PLAN: This is a 81-year-old male who was seen early this morning in room 304 with herpes zoster clinically improved and consider ileus, rule out partial small bowel obstruction, history of urinary tract infection and methicillin-susceptible Staphylococcus aureus, coronary artery disease, hypertension, dyslipidemia, chronic obstructive lung disease, currently off antibiotics, afebrile. Dr. Ramirez's note is reviewed. Patient has risk for developing of infections, currently off of antibiotics. Dr. Michael Rodriguez's communication report is reviewed. Jonathan Woods MD
[2017-10-05] MEDS: Levothyroxine 25 MCG TAB PO SCH (05:47)
[2017-10-05] MEDS: Multivitamin Therapeutic Tab PO SCH (08:23)
[2017-10-05] MEDS: POLYETHYLENE GLYCOL 3350 17 GM/Dose PACKET PO SCH ×2 (10:00→17:26)
--- NOTE | 2017-10-05 20:44 | PN ---
DATE: SUBJECTIVE: The patient seen earlier this morning. No acute distress, nontoxic. PHYSICAL EXAMINATION: VITAL SIGNS: Temperature is 98, blood pressure is 120/70, respiratory rate of 16. HEENT: Unremarkable. NECK: Supple. LUNGS: Have decreased breath sounds. HEART: Normal S1, S2. ABDOMEN: Soft, nontender. LABORATORY EXAMINATION: Reveals the patient's white count of 6.9, hemoglobin is noted and review of orders reveals the patient to be off of antibiotics. ASSESSMENT AND PLAN: A 81-year-old male seen earlier this morning in room 304 with herpes zoster, which is resolved and the patient with ileus and partial bowel obstruction, history of urinary tract infection with sensitive staph aureus in the past and coronary artery disease and hypertension, dyslipidemia, chronic obstructive lung disease, currently off of antibiotics. We will follow with you. Jonathan Woods MD
[2017-10-06] MEDS: Levothyroxine 25 MCG TAB PO SCH (05:44)
[2017-10-06] MEDS: Multivitamin Therapeutic Tab PO SCH (07:56)
[2017-10-06] MEDS: POLYETHYLENE GLYCOL 3350 17 GM/Dose PACKET PO SCH ×2 (10:42→17:07)
--- NOTE | 2017-10-06 16:44 | RAD ---
HISTORY: Abdominal pain, weakness COMPARISON: 09/24/2017 CT abdomen and pelvis FINDINGS: BOWEL: Normal. No obstruction. No free air. BONES: Normal. OTHER FINDINGS: None. IMPRESSION: No significant or acute findings to account for/ related to the clinical presentation.
[2017-10-06 17:36] VITALS: RESP 18
--- NOTE | 2017-10-06 21:43 | CP.PCM.PN ---
Subjective - Date & Time of Evaluation Date of Evaluation: 10/06/17 Time of Evaluation: 12:00 - Subjective Subjective: Doing well with his physical therapy, improved abdominal pain. No fevers. Objective - Vital Signs/Intake and Output Vital Signs (last 24 hours): Temp Pulse Resp BP Pulse Ox 97.5 F L 83 18 142/68 96 10/06/17 17:35 10/06/17 17:35 10/06/17 17:35 10/06/17 17:35 10/06/17 17:35 - Medications Medications: Current Medications Acetaminophen (Tylenol 325mg Tab) 650 mg PO Q8H PRN; Protocol PRN Reason: Pain, moderate (4-7) Last Admin: 10/06/17 11:41 Dose: 650 mg Amlodipine Besylate (Norvasc) 10 mg PO DAILY [facility] Last Admin: 10/06/17 10:58 Dose: 10 mg Atorvastatin Calcium (Lipitor) 40 mg PO DIN [facility] Bisacodyl (Dulcolax) 5 mg RC DAILY [facility] Last Admin: 10/06/17 10:41 Dose: 5 mg Cyproheptadine HCl (Periactin) 4 mg PO TID [facility] Last Admin: 10/06/17 17:07 Dose: 4 mg Ergocalciferol (Drisdol 50,000 Intl Units Cap) 1 cap PO Fr@1000 [facility] Last Admin: 10/03/17 10:50 Dose: 1 cap Famotidine (Pepcid) 20 mg PO Q12 [facility] Last Admin: 10/06/17 10:42 Dose: 20 mg Ferrous Sulfate (Feosol) 324 mg PO BID [facility] Last Admin: 10/06/17 17:06 Dose: 324 mg Gabapentin (Neurontin) 100 mg PO TID [facility] PRN Reason: Protocol Last Admin: 10/06/17 17:07 Dose: 100 mg Levothyroxine Sodium (Synthroid) 25 mcg PO 0630 [facility] Last Admin: 10/06/17 05:44 Dose: 25 mcg Multivitamins (Thera Tab) 1 tab PO 0800 [facility] Last Admin: 10/06/17 07:56 Dose: 1 tab Polyethylene Glycol (Miralax) 17 gm PO BID [facility] Last Admin: 10/06/17 17:07 Dose: 17 gm Zolpidem Tartrate (Ambien) 5 mg PO HS PRN; Protocol PRN Reason: Insomnia Last Admin: 10/03/17 21:15 Dose: 5 mg - Labs Labs: 10/02/17 06:00 10/02/17 06:00 - Constitutional Appears: Non-toxic, Cachectic, Chronically Ill - Head Exam Head Exam: NORMAL INSPECTION - ENT Exam ENT Exam: Mucous Membranes Moist - Respiratory Exam Respiratory Exam: Decreased Breath Sounds - Cardiovascular Exam Cardiovascular Exam: +S1, +S2 - GI/Abdominal Exam GI & Abdominal Exam: Soft. 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
--- NOTE | 2017-10-07 05:03 | PN ---
DATE: 10/06/2017 SUBJECTIVE: Patient was seen and examined on 10/06/2017 on the bedside. Was complaining a little bit abdominal pain in the morning. Then abdominal x-ray was done. After evening, he said pain is settled down. No fever. No chills. No headache. No dizziness. PHYSICAL EXAMINATION: VITAL SIGNS: Temperature 97.5, pulse 83, respiratory rate 18, blood pressure 148/68, pulse oximetry 96. HEENT: Head, normocephalic atraumatic. Eyes, PERRLA. Extraocular muscles intact. Conjunctivae clear. Nose patent. Mucous membrane moist. NECK: Supple. No carotid bruit. No JVD or thyromegaly. CHEST: Bilaterally symmetrical. HEART: S1 and S2 positive. LUNGS: Clear to auscultation. ABDOMEN: Soft. Bowel sounds present. No organomegaly. EXTREMITIES: No edema. No cyanosis. NEUROLOGIC: Patient is awake and alert. Moving all 4 extremities. No focal deficit. MEDICATIONS: Tylenol, Norvasc, Lipitor, Dulcolax, Periactin, vitamin D, Pepcid, Feosol, Neurontin, Synthroid, Theraflu, MiraLax, and zolpidem. LABORATORY DATA: White blood cells 6.9, hemoglobin 9.6, hematocrit 28.1, platelets . Sodium 139, potassium 3, BUN 12, creatinine 0.8, glucose 115. ASSESSMENT AND PLAN: Mr. Gabriela Page is a 81-year-old male with anemia; hypokalemia, replaced; hyperglycemia; history of herpes zoster, clinically improved status post treatment with acyclovir; history of partial small bowel strictures; history of urinary tract infection; history of pneumonia; coronary artery disease; hypertension; dyslipidemia, chronic obstructive pulmonary disease; chronic back pain; arthritis; history of diverticulosis. Continue monitoring of the antibiotics and antivirals. Abdominal x-ray done. History of chronic constipation. No significant acute findings related to the clinical presentation. Gastrointestinal and deep vein thrombosis prophylaxis. Repeat labs. We will follow up. Hannah Ramirez MD
[2017-10-07] MEDS: Levothyroxine 25 MCG TAB PO SCH (05:30)
[2017-10-07] MEDS: Multivitamin Therapeutic Tab PO SCH (08:19)
--- NOTE | 2017-10-07 08:32 | PN ---
DATE: 10/05/2017 SUBJECTIVE: The patient is 81 years old male. The patient was seen and examined at the bedside on 10/05/2017. Looking comfortable. Family were around. Having bowel movement. Everyday doing physical therapy. No fever, no chills. No nausea or vomiting. No hematuria or hematochezia. PHYSICAL EXAMINATION: VITAL SIGNS: Temperature 98, blood pressure 120/70, respiratory rate 18, pulse 80. HEENT: Head: Normocephalic and atraumatic. Eyes: PERRLA. Extraocular muscles intact. Conjunctivae clear. Nose patent. Mucous membrane moist. NECK: Supple. No carotid bruits, JVD, or thyromegaly. CHEST: Bilaterally symmetrical. HEART: S1 and S2 positive. LUNGS: Clear to auscultation. ABDOMEN: Soft. Bowel sounds present. No organomegaly. EXTREMITIES: No edema, no cyanosis. NEUROLOGIC: The patient is awake, alert, moving all four extremities. No focal deficits. MEDICATIONS: Ambien, vitamin D, Dulcolax, Aranesp, Lipitor, MiraLax, Neurontin, Norvasc, Pepcid, Periactin, Synthroid, multivitamins, Tylenol. LABORATORY DATA: We do not have recent labs today, but I reviewed old labs. ASSESSMENT AND PLAN: Patient is 81 years old male with history of anemia, this time came with Zoster, improved, sometime getting pain in that area; right postherpetic neuralgia; history of chronic constipation; history of electrolyte imbalance, completed course of acylovir. As per Dr. Greene, the patient does not need surgery for small bowel obstruction that resolved with stool softener. GI and DVT prophylaxis given. History of pneumonia, history of sepsis, improved, deconditioned. Getting physical therapy with labs. We will follow up. Hannah Ramirez MD
--- NOTE | 2017-10-07 10:00 | CP.PCM.PCO ---
Physician Communication Note - Physician Communication Note Physician Communication Note: Home today-Lenny 6 mult feedingd-Look for rectal bleeding
[2017-10-07] MEDS: POLYETHYLENE GLYCOL 3350 17 GM/Dose PACKET PO SCH (10:02)
[2017-10-07 10:06] VITALS: BP 135/63
[2017-10-07 11:05] VITALS: PULSE 76; TEMP 98.3; O2SAT 100
--- NOTE | 2017-10-07 19:54 | PN ---
DATE: 10/07/2017 SUBJECTIVE: Patient was seen early this morning, in no acute distress, in room 304. No fevers and no chills. PHYSICAL EXAMINATION: VITAL SIGNS: Temperature is 98, blood pressure is 120/70, respiratory rate of 16. HEENT: Unremarkable. NECK: Supple. LUNGS: Have decreased breath sounds. HEART: Normal S1 and S2. ABDOMEN: Soft, nontender. LABORATORY DATA: Reveals a white count of 6.9, hemoglobin of 9, platelets of 318. BUN of 12, creatinine of 0.8. Microbiology is noted. ASSESSMENT AND PLAN: This is a 81-year-old male who was seen early this morning in room 304 with herpes zoster clinically improved, status post treatment and with a history of urinary tract infection, coronary artery disease, hypertension, dyslipidemia, chronic obstructive lung disease, and currently off of antibiotic. Patient is at risk of developing nosocomial infection. The patient was seen early this morning; possible discharge. Jonathan Woods MD
== END 2017-10-07 15:02 | disposition home or self-care (01) | DRG 388 ==
LOC: TRCU 15:44
PROVIDERS: ADMIT Internal Medicine; ATTEND Internal Medicine
PROC: F07Z9ZZ Gait Training/Functional Ambulation Treatment (ICD-10-PCS; principal; 2017-10-01)
PROC: F07L6YZ Therapeutic Exercise Treatment of Musculoskeletal System - Lower Back / Lower Extremity using Other Equipment (ICD-10-PCS; 2017-10-01)
PROC: F08Z2FZ Grooming/Personal Hygiene Treatment using Assistive, Adaptive, Supportive or Protective Equipment (ICD-10-PCS; 2017-10-01)
PROC: F08Z1ZZ Dressing Techniques Treatment (ICD-10-PCS; 2017-10-01)
DX: K56.7 Ileus, unspecified (principal); E43 Unspecified severe protein-calorie malnutrition; B02.29 Other postherpetic nervous system involvement; Z68.1 Body mass index [BMI] 19.9 or less, adult; K56.609 Unspecified intestinal obstruction, unspecified as to partial versus complete obstruction; I25.10 Atherosclerotic heart disease of native coronary artery without angina pectoris; I10 Essential (primary) hypertension; K57.90 Diverticulosis of intestine, part unspecified, without perforation or abscess without bleeding; J44.9 Chronic obstructive pulmonary disease, unspecified; M19.90 Unspecified osteoarthritis, unspecified site; E11.65 Type 2 diabetes mellitus with hyperglycemia; E87.6 Hypokalemia; D64.9 Anemia, unspecified; M54.9 Dorsalgia, unspecified; G89.29 Other chronic pain; E78.00 Pure hypercholesterolemia, unspecified; E03.9 Hypothyroidism, unspecified; Z87.01 Personal history of pneumonia (recurrent); Z87.440 Personal history of urinary (tract) infections

== ENCOUNTER 2018-01-06 12:58 | Inpatient (IN) | payer MEDICARE, MEDICAID ==
[2018-01-06 13:11] VITALS: BMI 16.0
--- NOTE | 2018-01-06 13:37 | ED PDOC ---
Arrival/HPI - General Chief Complaint: Weakness/Neurological Deficit Time Seen by Provider: 01/06/18 13:33 Historian: Patient - History of Present Illness Narrative History of Present Illness (Text): 01/06/18 13:33 82 year old male, whose past medical history includes mesh removal from abdominal hernia, rectal bleed with diverticulitis, and CAD with stents, who presents to the emergency department sent by Dr. Bryan complaining of rt sided weakness x 1 day. Patient notes associated dizziness. Patient denies any chest pain, sob, back pain, neck pain, headache, nausea, vomiting, diarrhea, or any other complaints. Time/Duration: 24 hours Symptom Onset: Sudden Symptom Course: Unchanged Activities at Onset: Light Context: Home Past Medical History - Provider Review Nursing Documentation Reviewed: Yes - Infectious Disease Hx of Infectious Diseases: None - Tetanus Immunization Tetanus Immunization: Unknown - Cardiac Hx Congestive Heart Failure: Yes Hx Hypertension: Yes Other/Comment: cardiac cath with 2 stents - Pulmonary Hx Chronic Obstructive Pulmonary Disease (COPD): Yes - Neurological Hx Dizziness: Yes Hx Seizures: (denies) - HEENT Hx Cataracts: Yes (b/l sx) - Renal Hx Kidney Stones: No - Endocrine/Metabolic Hx Diabetes Mellitus Type 2: Yes Hx Hypothyroidism: Yes - Hematological/Oncological Hx Blood Disorders: Yes (sepsis) Hx Anemia: Yes (blood transfusion) Hx Shingles: Yes (right abd around to r flank presently) - Integumentary Other/Comment: ble skin discolorations, healed abd surgical scars, dry scab to left knee healed lump to left scalp healed from fall few months ago, shingles dry pustules from right abd around to right flank pt denies pain - Musculoskeletal/Rheumatological Hx Arthritis: Yes - Gastrointestinal Hx Gastrointestinal Disorders: Yes (rectal bleeding) Other/Comment: h/o colon resection - Genitourinary/Gynecological Hx Genitourinary Disorders: No Hx Reproductive Disorders: No - Psychiatric Hx Psychophysiologic Disorder: No Hx Substance Use: No - Surgical History Hx Coronary Stent: Yes Hx Orthopedic Surgery: (denies left hip sx) Other/Comment: s/p abdominal surgery with mesh placement, 12/02/2016 exp of groin /laparotomy/sigmoid resection and remioval of foreigh body due to fistula in llq at site of herniorrophy,infected mesh left groin, 8 inches of colon removed - Anesthesia Hx Anesthesia Reactions: No Hx Malignant Hyperthermia: No - Suicidal Assessment Feels Threatened In Home Enviroment: No Family/Social History - Physician Review Nursing Documentation Reviewed: Yes Family/Social History: Unknown Family HX Smoking Status: Former Smoker Hx Alcohol Use: No Hx Substance Use: No Hx Substance Use Treatment: No Allergies/Home Meds Allergies/Adverse Reactions: Allergies No Known Allergies Allergy (Verified 09/29/17 18:31) Home Medications: Home Meds Medication Instructions Recorded Confirmed Lisinopril [Zestril] 10 mg PO DAILY 12/18/15 09/29/17 Multivit,Iron,Min 5/Folic Acid 1 each PO DAILY 11/30/16 09/29/17 [Strovite Forte Caplet] [id number] Ethyl Esters [OMEGA 3] 1,000 mg PO BID 11/30/16 09/29/17 Ranitidine HCl [Acid Sales Service Route Manager] 150 mg PO BID 11/30/16 09/29/17 amLODIPine [Norvasc] 10 mg PO DAILY 11/30/16 09/29/17 Atorvastatin [Lipitor] 40 mg PO DAILY 12/24/16 09/29/17 Bisacodyl [Dulcolax] 5 mg RC BID 08/28/17 09/29/17 Cyproheptadine [Periactin] 4 mg PO TID 08/28/17 09/29/17 Famotidine [Pepcid] 20 mg PO BID 08/28/17 09/29/17 Levothyroxine [Synthroid] 25 mcg PO DAILY 08/28/17 09/29/17 Doxazosin Mesylate 4 mg PO DAILY 09/29/17 09/29/17 Review of Systems - Physician Review All systems were reviewed & negative as marked: Yes - Review of Systems Constitutional: Normal Eyes: Normal ENT: Normal Respiratory: Normal. absent: SOB, Cough Cardiovascular: Normal. absent: Chest Pain Gastrointestinal: Normal. absent: Abdominal Pain, Diarrhea, Nausea, Vomiting Genitourinary Male: Normal. absent: Dysuria, Frequency Musculoskeletal: Normal Skin: Normal. absent: Rash Neurological: Other (rt sided weakness). absent: Headache Endocrine: Normal Hemo/Lymphatic: Normal Psychiatric: Normal Physical Exam Vital Signs Reviewed: Yes Vital Signs Temp Pulse Resp BP Pulse Ox 01/06/18 14:38 72 20 125/76 100 01/06/18 13:11 98.0 F 68 18 122/77 100 Temperature: Afebrile Blood Pressure: Normal Pulse: Regular Respiratory Rate: Normal Appearance: Positive for: Well-Appearing, Non-Toxic, Comfortable Pain Distress: None Mental Status: Positive for: Alert and Oriented X 3 - Systems Exam Head: Present: Atraumatic, Normocephalic Pupils: Present: PERRL Extroacular Muscles: Present: EOMI Conjunctiva: Present: Normal Mouth: Present: Moist Mucous Membranes Neck: Present: Normal Range of Motion Respiratory/Chest: Present: Clear to Auscultation, Good Air Exchange. No: Respiratory Distress, Accessory Muscle Use Cardiovascular: Present: Regular Rate and Rhythm, Normal S1, S2. No: Murmurs Abdomen: Present: Tenderness (epigastric tennderness). No: Distention, Peritoneal Signs Back: Present: Normal Inspection Upper Extremity: Present: Normal Inspection. No: Cyanosis, Edema Lower Extremity: Present: Normal Inspection. No: Edema Neurological: Present: GCS=15, CN II-XII Intact, Speech Normal Skin: Present: Warm, Dry, Normal Color. No: Rashes Psychiatric: Present: Alert, Oriented x 3, Normal Insight, Normal Concentration Medical Decision Making ED Course and Treatment: 01/06/18 13:39 Impression: 82 year old male presents to the emergency department complaining of rt sided weakness. Plan: -- Labs -- EKG -- Chest X-ray -- CT Head -- Urinalysis -- Sodium Chloride -- Troponin -- Reassess and disposition Progress Notes: EKG reviewed, shows NSR at 66 bpm. Normal axis. 01/06/18 14:19 CT head reviewed, shows: IMPRESSION: No acute intracranial findings 01/06/18 14:51 Chest X-ray reviewed, shows: IMPRESSION: No active disease. 01/06/18 15:[address] Ramirez, who is aware and agrees with plan. Recommends CT Cervical Spine and CT Lumbar Spine. Pt to be admitted to Dr. Ramirez service. - Lab Interpretations Lab Results: 01/06/18 13:30 01/06/18 13:30 Lab Results 01/06/18 13:30: Urine Color Yellow, Urine Appearance Clear, Urine pH 6.0, Ur Specific [place] 1.020, Urine Protein Negative, Urine Glucose (UA) Negative, Urine Ketones Trace H, Urine Blood Negative, Urine Nitrate Negative, Urine Bilirubin Negative, Urine Urobilinogen 0.2, Ur Leukocyte Esterase Negative 01/06/18 13:30: Sodium 141, Potassium 5.2 H, Chloride 102, Carbon Dioxide 26, Anion Gap 18, BUN 34 H, Creatinine 1.7 H, Est GFR ( Amer) 47, Est GFR ( Non-Af Amer) 39, Random Glucose 151 H, Calcium 9.3, Total Bilirubin 0.4, AST 17 , ALT 19, Alkaline Phosphatase 53, Troponin I < 0.01, Total Protein 7.5, Albumin 4.3, Globulin 3.2, Albumin/Globulin Ratio 1.3, Triglycerides 87, Cholesterol 99 L, LDL Cholesterol Direct 32, HDL Cholesterol 46 01/06/18 13:30: PT 11.8, INR 1.03, APTT 26.5 01/06/18 13:30: WBC 6.4, RBC 3.09 L, Hgb 9.9 L, Hct 29.0 L, MCV 93.9, MCH 32.0, MCHC 34.1, RDW 14.0, Plt Count 199, MPV 10.0, Gran % 46.6 L, Lymph % (Auto) 36.8 H, [place] % (Auto) 6.7 H, Eos % (Auto) 9.4 H, Baso % (Auto) 0.5, Gran # 2.97 , Lymph # (Auto) 2.4, [place] # (Auto) 0.4, Eos # (Auto) 0.6, Baso # (Auto) 0.03 - RAD Interpretation Radiology Orders: 01/06/18 13:34 HEAD W/O CONTRAST [CT] Stat 01/06/18 13:35 CHEST PORTABLE [RAD] Stat 01/06/18 15:05 LUMBAR SPINE W/O CONTRAST [CT] Stat - Medication Orders Current Medication Orders: Sodium Chloride (Sodium Chloride 0.9%) 1,000 mls @ 100 mls/hr IV .Q10H ZACK Last Admin: 01/06/18 13:48 Dose: 100 mls/hr eMAR Start Stop Document 01/06/18 13:48 HI (Rec: 01/06/18 13:48 [place] [id number] Intravenous Solution Start Date 01/06/18 Start Time 13:48 Discontinued Medications Aspirin (Aspirin) 325 mg PO STAT STA Stop: 07/24/18 14:21 Last Admin: 01/06/18 15:25 Dose: 325 mg NIHSS Scale ([place]) Time Performed: 14:27 - How Severe is the Stoke 24 hours post onset S/S Level of Consciousness: 0=Alert LOC to Questions: 0=Both comments correct LOC to commands: 0=Obeys both correctly Best Gaze: 0=Normal Visual: 0=No visual loss Facial: 0=Normal Motor Arm - Left: 0=No drift Motor Arm - Right: 0=No drift Motor Leg - Left: 0=No drift Motor Leg - Right: 0=No drift Limb Ataxia: 0=Absent Sensory: 0=Normal Best Language: 0=No aphasia Dysarthia: 0=Normal articulation Extinction & Inattention (Neglect): 0=Normal, no object Score: 0 Risk Level: No Stroke Risk rTPA Inclusion/Exclusion - Refusal of Treatment Patient Refused Treatment: No - Inclusion Criteria for Altepase Patient is 18 years or Older: Yes The Clinical Diagnosis of Ischemic Stroke That is Causing a Potentially Disabling Neurological Deficit: Yes Time of Onset is Well Established to be Less Than 270 Minute Before Treatment Would Begin: No Risk/Benefit Discussed With Patient/Family Member Present: No - Exclusion Criteria for Altepase Uncontrolled Hypertension at Time of Treatment (Systolic BP above 185 or Diastolic BP above 110 mmHg): No Active Internal Bleeding: No Known Bleeding Diathesis Including but Not Limited to: Platelets Below 100,000/ mm,PTT Above 40 sec After Heparin Use, Current Use of Oral Anitcoagulant With INR Greater Than 1.7 or PT Greater Than 15 secs: No Evidence of an Intracranial Hemorrhage: No Evidence of Major Acute Infarct With Signs Greater Than 1/3 MCA Territory: No Suspicion of Subarachnoid Hemorrhage on Pretreatment Evaluation Even if CT Head Negative For Hemorrhage: No - Warning to TPA With Conditions Following Conditions Weighed Against Anticipated Benefit: No Condition: Age Greater Than 75 years, Care Team Unable to Determine Eligibilty - Scribe Statement The provider has reviewed the documentation as recorded by the Scribjessica Kelly All medical record entries made by the Scribe were at my direction and personally dictated by me. I have reviewed the chart and agree that the record accurately reflects my personal performance of the history, physical exam, medical decision making, and the department course for this patient. I have also personally directed, reviewed, and agree with the discharge instructions and disposition. Disposition/Present on Arrival - Present on Arrival Any Indicators Present on Arrival: No History of DVT/PE: No History of Uncontrolled Diabetes: No Urinary Catheter: No History of Decub. Ulcer: No History Surgical Site Infection Following: None - Disposition Have Diagnosis and Disposition been Completed?: Yes Diagnosis: Numbness Disposition: HOSPITALIZED Disposition Time: 15:51 Patient Plan: Admission Condition: GOOD
[2018-01-06] MEDS: Sodium Chloride 0.9% 1,000 ML IV SCH (13:48)
[2018-01-06 14:07] LABS: BASO # 0.03 K/mm3 (0.0-2.0); BASO % 0.5 % (0.0-3.0); EOS # 0.6 (0.0-0.7); EOS % 9.4 % (1.5-5.0); GRAN # 2.97 (1.4-6.5); GRAN % 46.6 % (50.0-68.0); HEMOGLOBIN 9.9 g/dL (14.0-18.0); LYMPH # 2.4 (1.2-3.4); LYMPH % 36.8 % (22.0-35.0); MEAN CELL VOLUME 93.9 fl (80.0-105.0); MEAN CORPUSCULAR HGB CONC 34.1 g/dl (31.0-37.0); MONO # 0.4 (0.1-0.6); MONO % 6.7 % (1.0-6.0); RBC 3.09 10^6/uL (3.5-6.1); WHITE BLOOD COUNT 6.4 10^3/ul (4.5-11.0)
[2018-01-06 14:08] LABS: URINE BILIRUBIN NEGATIVE (NEGATIVE); URINE BLOOD NEGATIVE (NEGATIVE); URINE GLUCOSE (UA) NEGATIVE (NEGATIVE); URINE LEUKOCYTE ESTERASE NEGATIVE Leu/uL (NEGATIVE); URINE PROTEIN NEGATIVE mg/dL (<30 mg/dL); URINE UROBILINOGEN 0.2 E.U./dL (<1 E.U./dL)
[2018-01-06 14:10] LABS: URINE APPEARANCE CLEAR (CLEAR); URINE COLOR YELLOW (YELLOW)
--- NOTE | 2018-01-06 14:12 | CT ---
Date of service: 01/06/2018 PROCEDURE: CT HEAD WITHOUT CONTRAST. HISTORY: right side numbness COMPARISON: 07/28/2017 TECHNIQUE: Axial computed tomography images were obtained through the head/brain without intravenous contrast. Radiation dose: Total exam DLP = 633 mGy-cm. This CT exam was performed using one or more of the following dose reduction techniques: Automated exposure control, adjustment of the mA and/or kV according to patient size, and/or use of iterative reconstruction technique. FINDINGS: HEMORRHAGE: No intracranial hemorrhage. BRAIN: No mass effect or edema. Chronic microvascular changes in the basal ganglia left greater than right. Chronic microvascular changes in the periventricular white matter. VENTRICLES: Unremarkable. No hydrocephalus. CALVARIUM: Unremarkable. PARANASAL SINUSES: Unremarkable as visualized. No significant inflammatory changes. MASTOID AIR CELLS: Unremarkable as visualized. No inflammatory changes. OTHER FINDINGS: None. IMPRESSION: No acute intracranial findings
[2018-01-06 14:16] LABS: INR 1.03 (0.93-1.08); PARTIAL THROMBOPLASTIN TIME 26.5 Seconds (25.1-36.5); PROTHROMBIN TIME 11.8 SECONDS (9.4-12.5)
[2018-01-06 14:28] LABS: LDL CHOLESTEROL 32 mg/dL (0-129)
--- NOTE | 2018-01-06 14:31 | RAD ---
Date of service: 01/06/2018 HISTORY: Code Stroke COMPARISON: 09/24/2017 FINDINGS: LUNGS: No active pulmonary disease. PLEURA: No significant pleural effusion identified, no pneumothorax apparent. CARDIOVASCULAR: Normal. OSSEOUS STRUCTURES: No significant abnormalities. VISUALIZED UPPER ABDOMEN: Normal. OTHER FINDINGS: None. IMPRESSION: No active disease.
[2018-01-06 14:34] LABS: ALBUMIN 4.3 g/dL (3.0-4.8); BLOOD UREA NITROGEN 34 mg/dL (7-21); CALCIUM 9.3 mg/dL (8.4-10.5); GFR AFRICAN-AMERICAN 47; GFR NON-AFRICAN AMERICAN 39
[2018-01-06 14:35] LABS: ALB/GLOB RATIO 1.3 (1.1-1.8); ALT/SGPT 19 U/L (7-56); AST/SGOT 17 U/L (17-59); HDL CHOLESTEROL 46 mg/dL (29-60); TROPONIN I < 0.01 ng/mL
--- NOTE | 2018-01-06 16:12 | CT ---
Date of service: 01/06/2018 PROCEDURE: CT Cervical Spine without contrast HISTORY: r/o fx COMPARISON: None available. TECHNIQUE: Axial computed tomography images were obtained of the cervical spine without the use of intravenous contrast. Coronal and sagittal reformatted images were created and reviewed. Radiation dose: Total exam DLP = 288 mGy-cm. This CT exam was performed using one or more of the following dose reduction techniques: Automated exposure control, adjustment of the mA and/or kV according to patient size, and/or use of iterative reconstruction technique. FINDINGS: VERTEBRAE: No fracture. Normal alignment. No destructive bony lesion. DISCS/SPINAL CANAL/NEURAL FORAMINA: Multilevel disc degeneration. Left-sided foraminal stenosis at C3-4. Bilateral foraminal stenosis at C4-5. Mild right-sided foraminal stenosis at C5-6. Small right paracentral disc protrusion and osteophyte at C6-7 PARASPINAL SOFT TISSUES: Unremarkable. OTHER FINDINGS: None. IMPRESSION: Multilevel disc degeneration. No evidence of fracture
[2018-01-06 16:14] VITALS: RESP 18
--- NOTE | 2018-01-06 16:26 | CT ---
Date of service: 01/06/2018 PROCEDURE: CT Lumbar Spine without contrast HISTORY: r/o Fx COMPARISON: None. TECHNIQUE: Axial computed tomography images were obtained of the lumbar spine without the use of intravenous contrast. Coronal and sagittal reformatted images were created and reviewed. Radiation dose: Total exam DLP = 241 mGy-cm. This CT exam was performed using one or more of the following dose reduction techniques: Automated exposure control, adjustment of the mA and/or kV according to patient size, and/or use of iterative reconstruction technique. FINDINGS: VERTEBRAE: Unremarkable. No fracture. Normal alignment. DISCS/SPINAL CANAL/NEURAL FORAMINA: L1-2: Unremarkable. L2-3: Unremarkable. L3-4: Asymmetric disc bulge to the left with left-sided foraminal stenosis and mild to moderate central stenosis. L4-5: Disc bulge and facet arthropathy with severe central stenosis and bilateral foraminal stenosis. Complete loss of disc height and vacuum disc. L5-S1: Disc bulge with mild central stenosis and bilateral foraminal stenosis PARASPINAL SOFT TISSUES: Unremarkable. OTHER FINDINGS: None. IMPRESSION: L3-4: Asymmetric disc bulge to the left with left-sided foraminal stenosis and mild to moderate central stenosis. L4-5: Disc bulge and facet arthropathy with severe central stenosis and bilateral foraminal stenosis. Complete loss of disc height and vacuum disc. L5-S1: Disc bulge with mild central stenosis and bilateral foraminal stenosis No evidence of compression fracture
[2018-01-06] MEDS ORDERED: Pneumococcal 23-Valent Vaccine IM ONE (17:33)
--- NOTE | 2018-01-06 18:00 | CARD ---
APPROVED REPORT Date of service: 01/06/2018 EKG Measurement Heart [id number] <Conclusion> Normal sinus rhythm Low voltage QRS Borderline ECG
[2018-01-07 07:05] LABS: BLOOD UREA NITROGEN 23 mg/dL (7-21); CALCIUM 8.5 mg/dL (8.4-10.5); GFR AFRICAN-AMERICAN > 60; GFR NON-AFRICAN AMERICAN 58; HDL CHOLESTEROL 43 mg/dL (29-60)
[2018-01-07 07:06] LABS: HEMOGLOBIN 9.8 g/dL (14.0-18.0); MEAN CELL VOLUME 93.5 fl (80.0-105.0); MEAN CORPUSCULAR HEMOGLOBIN 31.7 pg (25.0-35.0); MEAN CORPUSCULAR HGB CONC 33.9 g/dl (31.0-37.0); MEAN PLATELET VOLUME 9.9 fl (7.0-11.0); RBC 3.09 10^6/uL (3.5-6.1); RED CELL DISTRIBUTION WIDTH 14.1 % (11.5-14.5); WHITE BLOOD COUNT 6.3 10^3/ul (4.5-11.0)
[2018-01-07 07:13] LABS: IRON 70 ug/dL (45-180)
[2018-01-07 07:15] LABS: LDL CHOLESTEROL 30 mg/dL (0-129)
[2018-01-07 07:23] LABS: % IRON SATURATION 28 % (20-55); TOTAL IRON BINDING CAPACITY 250 ug/dL (261-462)
[2018-01-07] MEDS: POLYETHYLENE GLYCOL 3350 17 GM/Dose PACKET PO SCH ×2 (09:47→17:01)
[2018-01-07] MEDS: Levothyroxine 25 MCG TAB PO SCH (09:48)
[2018-01-07] MEDS: Omega-3-Acid Ethyl Esters 1 GM Cap PO SCH ×2 (09:48→17:01)
[2018-01-07 12:56] LABS: FOLATE > 20.0 ng/mL
[2018-01-07] MEDS ORDERED: Albuterol-Ipratrop 3 mg / 0.5 (3 ml) UD IH PRN (13:11)
--- NOTE | 2018-01-07 14:07 | CON ---
DATE: 01/07/2018 HISTORY OF PRESENT ILLNESS: This is an 82-year-old male with past medical history of coronary artery disease, rectal bleed and abdominal hernia. Came to the hospital with 2 days right-sided numbness both in the right upper arm and the right lower extremity. No weakness. Numbness is still persisting. Called to evaluate the patient. CAT scan of the head was done, which was reported negative. ALLERGY: NO KNOWN DRUG ALLERGY. HOME MEDICATIONS: Zestril, Norvasc, Lipitor, Pepcid, Synthroid. PHYSICAL EXAMINATION: HEENT: Normocephalic, atraumatic. NEUROLOGIC: On examination, awake, alert, orientated x3. No aphasia. Cranial nerves II through XII were tested. Pupils reactive. Moves all the extremities equally. Tone normal. Deep tendon reflexes 1+. Both plantars downgoing. Sensory appears intact. Cerebellar gait deferred. IMPRESSION: Possibly transient ischemic attack and CAT scan was done. We will order the MRI of the head and carotid Doppler. Continue with aspirin. Follow up. Workup in progress. Gordy Dhillon MD
--- NOTE | 2018-01-07 15:27 | CON ---
DATE: 01/07/2018 PULMONARY CONSULT REFERRING PHYSICIAN: Hannah Ramirez MD. REASON FOR CONSULT: Chronic lung disease, comes in with right upper and lower extremity numbness. HISTORY OF PRESENT ILLNESS: This is an 82-year-old gentleman, known to me from previous admission, noncompliant with the followup, has multiple medical issues with abdominal hernia repair in the past multiple times, history of diverticulitis, recurrent GI bleeds, colitis, chronic constipation, coronary artery disease, history of coronary stent, hypertension, diabetes, anemia. Comes in with right upper and lower extremity numbness, had a CAT scan of the head done, which was unremarkable. Presently, lying in the bed, feels okay. Still has numbness of the right upper and lower extremity. Denying any fall or headache. No nausea. Still constipated. No leg pain or leg swelling. PAST MEDICAL HISTORY: As per history of present illness. ALLERGIES: NONE KNOWN. SOCIAL HISTORY: Nonsmoker, nondrinker. MEDICATIONS: He is on aspirin 325 mg daily, Cardura 4 mg daily, vitamin D 50,000 units weekly, Lipitor 20 mg daily, Lovaza 1 g twice a day, MiraLax 17 g twice a day, Norvasc 10 mg daily, Pepcid 20 mg twice a day, Periactin 4 mg three times a day, IV fluid normal saline 100 mL/hour, Synthroid 25 mcg daily, Zestril 10 mg daily. REVIEW OF SYSTEMS: No headache, no rhinitis. Denied any significant cough. Gets short of breath with exertion. No chest pain. Mild abdominal discomfort. No dysuria. No leg pain or leg swelling. Has a numbness on the right hand and right lower extremity. PHYSICAL EXAMINATION: GENERAL: Lying in the bed, no acute distress. VITAL SIGNS: Temperature is 98, heart rate is 55, respiratory rate is 18, blood pressure 109/52, pulse ox 96% on room air. HEENT: Moist mucous membrane. Crowded airway. NECK: Supple. No JVD. LUNGS: Have a fair airflow with few rhonchi. HEART: S1 and S2. ABDOMEN: Soft, nontender and nondistended. EXTREMITIES: No edema. NEUROLOGICAL: Awake and alert. Follows simple command. LABORATORY DATA: Shows hemoglobin 9.8, hematocrit 28.9, WBC 6.3, platelet is 197. INR 1.03, PTT 27. Sodium 142, potassium 5, chloride 109, bicarbonate 25, BUN 23, creatinine 1.2, glucose 79, hemoglobin A1c 6.2, iron is 70, cholesterol is 94, folate is more than 20, vitamin B12 is 290, HDL cholesterol 43, TSH 2.83. He has a CT of the lumbar spine done in the ER, which shows L3-L4 asymmetrical disk bulge to the left with left side foraminal stenosis and mild to moderate central stenosis. No evidence of compression fracture. Also has a cervical spine CT done, which shows multilevel disk degeneration. CT of the head was unremarkable. Chest x-ray is unremarkable. IMPRESSION AND PLAN: Chronic lung disease, history of recurrent bowel obstruction, history of esophageal ulcer, gastroparesis, chronic constipation, rectal ulcers, GI bleed, anemia, coronary artery disease, history of coronary stent, hypertension, hyperlipidemia. Has had numbness of the right upper and lower extremity, could be secondary to spine degenerative disease. We will have Neurology evaluate the patient. Continue MiraLax daily basis. Add inhaled bronchodilator. Fall precaution. Gastric prophylaxis, deep venous thrombosis prophylaxis. Thank you and we will follow with you. Dakotah Farrar MD
--- NOTE | 2018-01-07 15:29 | MRI ---
Date of service: 01/07/2018 PROCEDURE: MRI BRAIN WITHOUT CONTRAST HISTORY: r/o cva COMPARISON: None. TECHNIQUE: Multiplanar, multisequence MR images of the brain were obtained without intravenous contrast enhancement. FINDINGS: HEMORRHAGE: None DWI: No evidence of an acute or early subacute infarction. BRAIN PARENCHYMA: No mass effect or edema. Chronic microvascular changes in the periventricular white matter and basal ganglia. VENTRICLES: Unremarkable. No hydrocephalus. CRANIUM: Unremarkable. ORBITS: Grossly unremarkable. PARANASAL SINUSES/MASTOIDS: Fluid in the right mastoid air cells VASCULAR SYSTEM: Skull base flow voids intact. OTHER FINDINGS: None. IMPRESSION: No acute intracranial findings
[2018-01-07] MEDS: Sodium Chloride 0.9% 1,000 ML IV SCH (17:02)
--- NOTE | 2018-01-07 18:18 | US ---
PROCEDURE: Bilateral carotid artery duplex ultrasound HISTORY: Carotid stenosis TIA PHYSICIAN(S): Sukhjinder Henderson MD. TECHNIQUE: Duplex sonography and color-flow Doppler were used to evaluate the carotid bifurcations and limited segments of the vertebral arteries bilaterally. FINDINGS: There is mild to moderate smooth diffuse echogenic plaque noted at the carotid bifurcations bilaterally. The peak systolic velocity in the proximal right internal carotid artery is 96 cm/sec. This corresponds to a 20 to 39% proximal right ICA stenosis. Normal systolic velocities are noted in the proximal right external carotid artery. There is antegrade flow in the right vertebral artery. The peak systolic velocity in the proximal left internal carotid artery is 89 cm/sec. This corresponds to a 20 to 39% proximal left ICA stenosis. Normal systolic velocities are noted in the proximal left external carotid artery. There is antegrade flow in the left vertebral artery. IMPRESSION: 1. Bilateral 20-39% proximal ICA stenoses. 2. Antegrade flow in both vertebral arteries.
[2018-01-08] MEDS: Levothyroxine 25 MCG TAB PO SCH (09:50)
[2018-01-08] MEDS: POLYETHYLENE GLYCOL 3350 17 GM/Dose PACKET PO SCH (09:51)
[2018-01-08] MEDS: Omega-3-Acid Ethyl Esters 1 GM Cap PO SCH (09:51)
[2018-01-08] MEDS ORDERED: Magnesium Citrate Oral SOL (300 ml) PO ONE (14:08)
[2018-01-08 16:42] VITALS: BP 110/60; PULSE 60; TEMP 98; O2SAT 98
--- NOTE | 2018-01-08 20:22 | PN ---
DATE: 01/08/2018 PULMONARY PROGRESS NOTE REFERRING PHYSICIAN: Hannah Ramirez MD SUBJECTIVE: Lying in the bed, head at 45 degrees. Night was unremarkable. Seen by Neurology, cleared for discharge. No headache, no rhinitis. No nausea, no vomiting, constipated though. No leg pain or leg swelling. OBJECTIVE: GENERAL: In no acute distress. VITAL SIGNS: Temperature is 98, heart rate 60, respiratory rate is 18, blood pressure 110/60, and pulse oximetry 98% on room air. HEENT: Moist mucous membrane. No ulcer or oral thrush noted. NECK: Supple. No JVD. LUNGS: Fair airflow with rhonchi. HEART: S1 and S2. ABDOMEN: Soft, nontender. No organomegaly. EXTREMITIES: No edema. NEUROLOGICAL: Awake and alert. Follows simple command. MEDICATIONS: Reviewed. No new changes in medications reported since yesterday. LABORATORY DATA: Reviewed. Blood sugar this morning 131. MRI of the brain was done, which was nondiagnostic. IMPRESSION AND PLAN: Chronic obstructive lung disease, history of bowel obstruction requiring surgery, history of hernia repair, esophageal ulcer, gastroparesis, chronic constipation, rectal ulcers in the past, gastrointestinal bleed, anemia, coronary artery disease, history of coronary stent, hypertension, hyperlipidemia, admitted with numbness of upper and lower extremities. Seen by Neurology, cleared for discharge. Spoke to nursing staff and nurse practitioner, requested to give him Dulcolax before going home to ensure there is a bowel movement. Gastric prophylaxis and deep vein thrombosis prophylaxis. Outpatient Neurology followup. Thank you and we will follow with you. Dakotah Farrar MD
[2018-01-09] MEDS ORDERED: Ergocalciferol 50,000 Intl Units Cap PO SCH (10:00)
== END 2018-01-08 16:57 | disposition home or self-care (01) | DRG 552 ==
LOC: ED 12:58 → ERH 15:06 → 3RSO 16:31
PROVIDERS: ADMIT Internal Medicine; ATTEND Internal Medicine
DX: M50.123 Cervical disc disorder at C6-C7 level with radiculopathy (principal); M48.07 Spinal stenosis, lumbosacral region; E03.9 Hypothyroidism, unspecified; E78.5 Hyperlipidemia, unspecified; I11.0 Hypertensive heart disease with heart failure; I25.10 Atherosclerotic heart disease of native coronary artery without angina pectoris; I50.9 Heart failure, unspecified; J44.9 Chronic obstructive pulmonary disease, unspecified; K31.84 Gastroparesis; K59.00 Constipation, unspecified; E11.43 Type 2 diabetes mellitus with diabetic autonomic (poly)neuropathy; Z87.19 Personal history of other diseases of the digestive system; Z91.19 Patient's noncompliance with other medical treatment and regimen; Z95.5 Presence of coronary angioplasty implant and graft; Z86.73 Personal history of transient ischemic attack (TIA), and cerebral infarction without residual deficits